=== PATIENT | female | born 1940 | race Caucasian/White ===

== ENCOUNTER → 2016-07-29 | Outpatient (CLI) | payer OTHER ==
[~2016-07-29] MED LIST: ACP20 PO; ALLO300T2 PO; ATV1 PO; FRS/40 PO; HYDCR1CL TOP; INSUINJ4 SC; LISI-729 PO; LTRCR15 TOP; METO50TA16 PO; POTA1080 PO; PRED-301 PO; TAMO20TA5 PO; TRAM-10 PO
--- NOTE | 2016-07-29 13:24 | MAMMOGRAPHY REPORT ---
BILATERAL DIGITAL SCREENING MAMMOGRAM TOMOSYNTHESIS WITH CAD: 07/29/2016 TECHNIQUE: Breast tomosynthesis in addition to standard 2D mammography was performed. Current study was also evaluated with a Computer Aided Detection (CAD) system. COMPARISON: Comparison is made to exams dated: 07/27/2015 mammogram, 07/05/2013 mammogram, 07/21/2014 m ammogram, 07/02/2012 mammogram, and 09/29/2011 mammogram - [facility]. BREAST COMPOSITION: There are scattered areas of fibroglandular density in both breasts. FINDINGS: No suspicious masses, calcifications, or areas of architectural distortion are noted in e ither breast. There has been no significant interval change compared to prior exams. There are stab le postsurgical changes in the left breast from prior lumpectomy. There is stable mild diffuse left breast skin thickening, likely sequela of radiation therapy. Scattered bilateral benign appearing calcifications are not significantly changed. IMPRESSION: ACR BI-RADS CATEGORY 2: BENIGN There is no mammographic evidence of malignancy. A 1 year screening mammogram is recommended. The p atient will receive written notification of the results. Approximately 10% of breast cancers are not detected with mammography. A negative mammographic repor t should not delay biopsy if a clinically suggestive mass is present. Kym Antonio M.D. /:07/29/2016 12:20:36 Grinder Operator Tool: Patti SINGLETARY(Mike)(Tavia), [facility] letter sent: Normal 1/2 BI-RADS Code: ACR BI-RADS Category 2: Benign
== END | disposition home or self-care (01) ==
LOC: C.MAMM 10:11
PROVIDERS: ATTEND Internal Medicine
DX: Z12.31 Encounter for screening mammogram for malignant neoplasm of breast (principal)

== ENCOUNTER → 2016-08-13 | Day surgery (SDC) | payer OTHER ==
[2016-08-04 14:01] VITALS: Ht 157.5 cm; Wt 97.7 kg
[~2016-08-13] VITALS: Ht 157.5 cm; Wt 97.7 kg
[~2016-08-13] MED LIST changes: +500ML BSS 0.3ML EPI 1:1000PF IRRIG ONE; +ACETAMINOPHEN 325 MG TAB PO PRN; +AMVISC PLUS 0.8ML SYRINGE INT OCU ONE; +ATROPINE SULFATE 0.1 MG/ML 5ML SYR IV PRN; +AcetaZOLAMIDE 250 MG TAB PO SCH; +BETAXOLOL HCL 0.25% OP SUSP PER DROP CHARGE OPL SCH; +BRIMONIDINE TART 0.2% OP SOLN PER DROP CHARGE ONE; +ENDOCOAT 0.85ML SYRINGE INT OCU ONE; +EpINEphrine INJ 1MG/ML AMP 1 MG/ML AMP ONE; +LACTATED RINGER'S 1000ML 500 ML IV SCH; +LIDOCAINE 4% OP SOLN DROP CHARGE ONE; +LIDOCAINE 4% OP SOLN DROP CHARGE OPL SCH; +LIDOCAINE HCL 1% MPF 2 ML VIAL ONE; +MIDAZOLAM HCL 1 MG/ML 2ML VIAL ONE; +MIX: 4ML BSS 1ML EPI 1:1000 PF INSTIL ONE; +MOXIFLOXACIN OPH SOLN PER DROP CHARGE ONE; +OCUCOAT 1 ML SOLN IO ONE; +POVIDONE-IODINE OP SOLN 30 ML BTL ONE; +PROPARACAINE 0.5% OP SOLN PER DROP CHARGE OPL SCH; +TOBRAMYCIN/DEXAMETHASONE OPH OINT PER APPLN CHARGE ONE
--- NOTE | 2016-08-13 07:24 | History & Physical Bridge - SC ---
H&P Re-Evaluation Bridge Note: I have examined the patient, reviewed the History & Physical and in the interval since the performance of the History & Physical I have noted the following changes of clinical significance: No changes noted
[2016-08-13] MEDS: PHENYLEPHRINE HCL 2.5% OP SOLN PER DROP CHARGE OPL SCH ×2 (07:55→08:00)
[2016-08-13] MEDS: TROPICAMIDE 1% OP SOLN PER DROP CHARGE OPL SCH ×2 (07:56→08:01)
[2016-08-13] MEDS: CYCLOPENTOLATE HCL 1% OP SOLN PER DROP CHARGE OPL SCH ×2 (07:57→08:02)
[2016-08-13] MEDS: MOXIFLOXACIN OPH SOLN PER DROP CHARGE OPL SCH ×2 (07:58→08:08)
--- NOTE | 2016-08-13 08:53 | Discharge Instructions-SurgCtr ---
Discharge Instructions Visit Reason for Visit: Cataract Left Eye Discharge Discharge Diagnosis / Problem: lens implant left eye Discharge Goals Goal(s): Improve function Activity Recommendations Activity Limitations: resume your previous activity Lifting Limitations: no more than 10 pounds Exercise/Sports Limitations: gradually increase as tolerated May Resume Sexual Activity: when tolerated Shower/Bathe: tomorrow Driving or Machine Use: resume 1 day after discharge Anesthesia . Post Anesthesia Instructions: If you have had General Anesthesia or IV Sedation: * Do not drive today. * Resume driving when surgeon permits. * Do not make important decisions or sign legal documents today. * Call surgeon for: 1. Temperature elevations greater than 101 degrees F. 2. Uncontrollable pain. 3. Excessive bleeding. 4. Persistent nausea and vomiting. 5. Medication intolerance (nausea, vomiting or rash). * For nausea and vomiting use only clear liquids such as: tea, soda, bouillon until nausea subsides, then gradually increase diet as tolerated. * If you have any concerns or questions, call your surgeon's office. If physician is unavailable and it is an emergency, call 911 or go to the nearest emergency room. . Instructions / Follow-Up Instructions / Follow-Up ACTIVITY RECOMMENDATIONS: * Light activities. * Mild irritation and blurred vision are common for the first few days. * You may walk outside, read, watch television. * Redness around the white part of the eye is common. MEDICATIONS: Resume previous medications unless instructed otherwise by your surgeon. * Take white Diamox (Acetazolamide) tablet at 1 pm today. Start all eye drops at 1 pm today: * Eye drops (today and tomorrow): Prednisone - one drop in operative eye every 3 hours while awake Ofloxacin - one drop in operative eye every 3 hours while awake SPECIAL CARE INSTRUCTIONS: * Tape plastic shield over eye to sleep at night. Call your doctor at with any concerns or problems. FOLLOW UP VISIT: Follow-up with Dr Torres at [place] office as scheduled. Diet Recommendations Home Diet: no limitations Procedures Procedures Performed: cataract extraction with lens implant Pending Studies Studies pending at discharge: no Medical Emergencies . Who to Call and When: Medical Emergencies: If at any time you feel your situation is an emergency, please call 911 immediately. . Non-Emergent Contact Non-Emergency issues call your: Cane Weigher Call Non-Emergent contact if: your pain is not controlled [phone] . . "Provider Documentation" section prepared by Jared Torres.
--- NOTE | 2016-08-13 08:55 | [facility] Operative Report ---
Operative Report Date of Service Aug 13, 2016. Operative Report 1. PREOPERATIVE DIAGNOSIS: Senile nuclear cataract, left eye. 2. POSTOPERATIVE DIAGNOSIS: Senile nuclear cataract, left eye. 3. PROCEDURE: Phacoemulsification of left cataract with posterior chamber lens implant, type Bausch & Lomb, model [id number], power +21.0 diopters. ANESTHESIA: Local standby. SURGEON: Dr. Torres. COMPLICATIONS: None. OPERATING TIME: 10 minutes. 4. OPERATION AND FINDINGS: DESCRIPTION OF PROCEDURE: The left pupil was dilated. The anesthetic was administered using a topical technique. The left eye was prepped and draped. A speculum was placed. A clear corneal incision was formed. The chamber was filled with Amvisc Plus and Endocoat. Epinephrine solution was used. A paracentesis was placed. A capsulorrhexis was performed. The nucleus was hydrodissected. The lens was removed with phacoemulsification. Time was 4.40 seconds. The aspiration unit was used to remove the cortex. The capsule was filled with Amvisc Plus. The lens implant was folded and placed into the capsule. The incision was hydrated. The Amvisc was aspirated. The wound was secure. The chamber was deep. The pupil was round. TobraDex ointment and Vigamox solution were placed. The speculum was removed. The patient was returned to the Recovery Room in stable condition. I attest to the content of the Intraoperative Record and any orders documented therein. Any exceptions are noted below. The scribe's documentation has been prepared in my presence, under my direction and personally reviewed by me in its entirety. I confirm that the note above accurately reflects all work, treatment, procedures, and medical decision making performed by me. I personally scribed for Jared Torres M.D. (TIA) on 08/13/16 at 08:55. Electronically submitted by Caitlin Dick ([email or web address]).
[2016-08-13 08:59] VITALS: TEMP 36.1
--- NOTE | 2016-08-13 09:20 | Anesthesia Progress Nt - [facility] ---
Anesthesia Post Op Note Date & Time Aug 13, 2016 at 09:19 Vital Signs Pain Intensity: 0 Vital Signs Past 12 Hours Date Time Temp Pulse Resp B/P Pulse Ox O2 Delivery O2 Flow Rate FiO2 08/13/16 08:59 36.1 69 16 111/64 96 Room Air 08/13/16 07:47 36.8 59 20 146/82 96 Room Air Notes Mental Status: alert / awake / arousable, participated in evaluation Pt Amnestic to Procedure: Yes Nausea / Vomiting: adequately controlled Pain: adequately controlled Airway Patency, RR, SpO2: stable & adequate BP & HR: stable & adequate Hydration State: stable & adequate Anesthetic Complications: no major complications apparent
[2016-08-13 09:25] VITALS: BP 115/66; PULSE 53; O2SAT 95
== END | disposition home or self-care (01) ==
LOC: X.SURG 07:34
PROVIDERS: ATTEND Specialist
DX: H25.12 Age-related nuclear cataract, left eye (principal); E11.36 Type 2 diabetes mellitus with diabetic cataract; I12.9 Hypertensive chronic kidney disease with stage 1 through stage 4 chronic kidney disease, or unspecified chronic kidney disease; E11.22 Type 2 diabetes mellitus with diabetic chronic kidney disease; N18.9 Chronic kidney disease, unspecified; Z68.39 Body mass index [BMI] 39.0-39.9, adult; Z98.890 Other specified postprocedural states; Z90.49 Acquired absence of other specified parts of digestive tract; Z79.4 Long term (current) use of insulin

== ENCOUNTER → 2016-08-25 | Outpatient (CLI) | payer OTHER ==
[~2016-08-25] MED LIST changes: -500ML BSS 0.3ML EPI 1:1000PF IRRIG ONE; -ACETAMINOPHEN 325 MG TAB PO PRN; -AMVISC PLUS 0.8ML SYRINGE INT OCU ONE; -ATROPINE SULFATE 0.1 MG/ML 5ML SYR IV PRN; -AcetaZOLAMIDE 250 MG TAB PO SCH; -BETAXOLOL HCL 0.25% OP SUSP PER DROP CHARGE OPL SCH; -BRIMONIDINE TART 0.2% OP SOLN PER DROP CHARGE ONE; -ENDOCOAT 0.85ML SYRINGE INT OCU ONE; -EpINEphrine INJ 1MG/ML AMP 1 MG/ML AMP ONE; -LACTATED RINGER'S 1000ML 500 ML IV SCH; -LIDOCAINE 4% OP SOLN DROP CHARGE ONE; -LIDOCAINE 4% OP SOLN DROP CHARGE OPL SCH; -LIDOCAINE HCL 1% MPF 2 ML VIAL ONE; -MIDAZOLAM HCL 1 MG/ML 2ML VIAL ONE; -MIX: 4ML BSS 1ML EPI 1:1000 PF INSTIL ONE; -MOXIFLOXACIN OPH SOLN PER DROP CHARGE ONE; -OCUCOAT 1 ML SOLN IO ONE; -POVIDONE-IODINE OP SOLN 30 ML BTL ONE; -PROPARACAINE 0.5% OP SOLN PER DROP CHARGE OPL SCH; -TOBRAMYCIN/DEXAMETHASONE OPH OINT PER APPLN CHARGE ONE
[2016-08-25 14:15] LABS: BLOOD UREA NITROGEN 32 mg/dl (7-18); BUN/CREATININE RATIO 18.8 (10-20); CALCIUM 8.8 mg/dl (8.5-10.1); CARBON DIOXIDE 27 mmol/L (21-32); CHLORIDE 102 mmol/L (98-107); CHOLESTEROL 140 mg/dl (0-200); GLUCOSE 144 mg/dl (70-99); POTASSIUM 4.1 mmol/L (3.5-5.1); SODIUM 140 mmol/L (136-145)
[2016-08-25 14:18] LABS: CHOLESTEROL/HDL RATIO 3.2; HDL CHOLESTEROL 44 mg/dl; TRIGLYCERIDES 121 mg/dl (0-150); VERY LOW DENSITY LIPOPROT CALC 24 mg/dl
[2016-08-25 14:28] LABS: ESTIMATED AVERAGE GLUCOSE 163 mg/dl; HA1C FLAG Normal (Normal)
== END ==
LOC: C.LABSPEC 12:41
PROVIDERS: ATTEND Internal Medicine
DX: E11.9 Type 2 diabetes mellitus without complications (principal); E78.5 Hyperlipidemia, unspecified; I10 Essential (primary) hypertension

== ENCOUNTER → 2016-11-13 | Outpatient (CLI) | payer OTHER ==
[~2016-11-13] MED LIST changes: +ATV/1 PO; +CLOT1CRE12 TD; +CPR500 PO; +DILT120C50 PO; +DILT120C68 PO; +INSDGIPEN SC; +RABE20TA5 PO; +RIVA1.5T PO; +URC10 PO; +XRL15 PO
[2016-11-13 16:00] LABS: BLOOD UREA NITROGEN 30 mg/dl (7-18); BUN/CREATININE RATIO 16.5 (10-20); CALCIUM 8.6 mg/dl (8.5-10.1); CARBON DIOXIDE 32 mmol/L (21-32); CHLORIDE 102 mmol/L (98-107); GLUCOSE 112 mg/dl (70-99); POTASSIUM 4.2 mmol/L (3.5-5.1); SODIUM 141 mmol/L (136-145)
[2016-11-14 06:18] LABS: ESTIMATED AVERAGE GLUCOSE 163 mg/dl; HA1C FLAG Normal (Normal)
== END | disposition home or self-care (01) ==
LOC: C.LABSPEC 15:05
PROVIDERS: ATTEND Internal Medicine
DX: I12.9 Hypertensive chronic kidney disease with stage 1 through stage 4 chronic kidney disease, or unspecified chronic kidney disease (principal); N18.9 Chronic kidney disease, unspecified; E11.65 Type 2 diabetes mellitus with hyperglycemia

== ENCOUNTER → 2016-11-18 | Outpatient (CLI) | payer OTHER ==
[2015-11-15 13:34] VITALS: BP 106/66; PULSE 56
[~2016-11-18] MED LIST changes: -ATV/1 PO; -CLOT1CRE12 TD; -CPR500 PO; -DILT120C50 PO; -DILT120C68 PO; -INSDGIPEN SC; -RABE20TA5 PO; -RIVA1.5T PO; -URC10 PO; -XRL15 PO
[2016-11-18 13:18] VITALS: BP 130/69; PULSE 59; TEMP 37.2; O2SAT 94
--- NOTE | 2016-11-18 14:31 | Radiation Oncology Follow-Up ---
Radiation Oncology Follow-Up Date of Visit Nov 18, 2016. Reason For Visit Annual follow-up Radiation Completion Date 04/08/2012 Diagnosis (1) Malignant neoplasm of central portion of female breast Status: Resolved Onset Date: 10/01/2011 Histology Subtype: ductal Stage: l Permanent Comment: Left breast pain Finding of a left breast mass Status post biopsy revealing infiltrating ductal carcinoma Status post partial mastectomy and sentinel lymph node biopsy Pathologic stage [id number] Estrogen receptor positive, progesterone receptor positive, HER-2/abelardo negative Status post completion of radiation therapy 04/08/2012 received 6120 cGy Last Edited By: Maya Shook on Nov 14, 2014 15:51 Interim History She's been doing well over this past year. She denies any changes to her breast. She's noted no masses or tenderness and no change of the axilla. She' s had no swelling of her arm. She is up-to-date on mammography. She was seen in medical oncology and has been discharged. She is also completing 5 years of tamoxifen. She does not have to take this any further than 5 years. Allergies Coded Allergies: Hydrocodone (Unverified Allergy, Mild, UNKNOWN "HAPPENED LONG TIME AGO", ) Hydroxychloroquine (Verified Allergy, Unknown, "BURPED FOR DAYS AND TORE MY STOMACH UP", 08/13/16) Insulin Aspart (Verified Allergy, Unknown, LOCALIZED RASH AT INJECTION SITE, 08/13/16) Phenol (Verified Allergy, Unknown, LOCALIZED RASH AT INJECTION SITE, ) Protamine (Verified Allergy, Unknown, LOCALIZED RASH AT INJECTION SITE, 08/13/16) Sodium Chloride (Verified Allergy, Unknown, LOCALIZED RASH AT INJECTION SITE, 08/13/16) Sodium Phosphate (Verified Allergy, Unknown, LOCALIZED RASH AT INJECTION SITE, 08/13/16) Zinc (Verified Allergy, Unknown, LOCALIZED RASH AT INJECTION SITE, 08/13/16) Home Medications Scheduled Allopurinol (Zyloprim), 300 MG PO QAM Clotrimazole 1% (Lotrimin 1% *), 1 APPL TOP UD Furosemide (Lasix), 40 MG PO BID Hydrocortisone 1% (Hydrocortisone 1%), 1 APPL TOP UD Insulin Glargine (Lantus Solostar Pen), 45 UNITS SC AM Insulin Glargine (Lantus Solostar Pen), 15 UNITS SC supper time Lisinopril (Prinivil), 5 MG PO BID Metoprolol Tartrate (Lopressor) (Lopressor), 50 MG PO BID Potassium Citrate (Urocit-K), 3 TABS PO BID Rabeprazole Sodium (Aciphex *), 20 MG PO QAM Tamoxifen Citrate (Nolvadex), 20 MG PO QAM Scheduled PRN Lorazepam (Ativan *), 1 MG PO Q8 PRN for PANIC ATTACKS Prednisone (Prednisone), 10 MG PO HS PRN for swelling Tramadol (Ultram), 50-100 MG PO Q4-6H PRN for Pain Review of Systems Gastrointestinal: Symptoms: WNL GI Comments: constipation due to pain med. last BM this Am Oral: Symptoms: No Problems Respiratory: Symptoms: WNL Urinary: Symptoms: WNL Comments: intermet feels like not emptying bladder Skin: Symptoms: No Problems Breast: Right Upper Arm Measurement: 37.6 Right Mid Arm Measurement: 29.2 Right Wrist Measurement: 18.8 Left Upper Arm Measurement: 38.1 Left Mid Arm Measurement: 30.1 Left Wrist Measurement: 19.4 Arm Dominence: Right Patient Cosmetic Evaluation: Good Staff Cosmetic Evalaluation: Good Physical Exam Vital Signs Date Time Temp Pulse Resp B/P (MAP) Pulse Ox O2 Delivery O2 Flow Rate FiO2 11/18/16 13:18 37.2 59 20 130/69 94 Pain: Pain Onset: years Pain Duration: intermet Initial Pain Intensity: 3.0 Pain Description: Aching Fatigue: None General Appearance: no apparent distress Eyes: normal inspection, EOMI ENT: normal ENT inspection, hearing grossly normal Neck: no adenopathy, thyroid normal Respiratory/Chest: lungs clear, no respiratory distress, no accessory muscle use Breast: Breast examination reveals well-healed incisions of the left breast. There are mild fibrous changes. There are no masses or tenderness no axillary adenopathy. She has slight telangiectasia this is especially noted in the inframammary fold. There is no axillary adenopathy. Using the [place] score cosmesis she has a good outcome. The right breast showed no masses or tenderness and no axillary adenopathy. Cardiovascular: regular rate, rhythm, no gallop, no murmur Extremities: no pedal edema Neurologic/Psychiatric: no motor/sensory deficits, alert, normal mood/affect Skin: warm/dry Laboratory Studies Test 08/25/16 08:45 11/13/16 12:00 Sodium Level 140 mmol/L (136-145) 141 mmol/L (136-145) Potassium Level 4.1 mmol/L (3.5-5.1) 4.2 mmol/L (3.5-5.1) Chloride Level 102 mmol/L (98-107) 102 mmol/L (98-107) Carbon Dioxide Level 27 mmol/L (21-32) 32 mmol/L (21-32) Anion Gap 11.0 mmol/L (3-11) 7.0 mmol/L (3-11) Blood Urea Nitrogen 32 mg/dl (7-18) 30 mg/dl (7-18) Creatinine 1.70 mg/dl (0.60-1.20) 1.80 mg/dl (0.60-1.20) Estimated GFR () 34.1 31.6 Estimated GFR (Non- 29.4 27.2 BUN/Creatinine Ratio 18.8 (10-20) 16.5 (10-20) Random Glucose 144 mg/dl (70-99) 112 mg/dl (70-99) Estimated Average Glucose 163 mg/dl 163 mg/dl Hemoglobin A1c 7.3 % (4.5-5.6) 7.3 % (4.5-5.6) Calcium Level 8.8 mg/dl (8.5-10.1) 8.6 mg/dl (8.5-10.1) Triglycerides Level 121 mg/dl (0-150) Cholesterol Level 140 mg/dl (0-200) HDL Cholesterol 44 mg/dl LDL Cholesterol Direct 79 mg/dl LDL Cholesterol, Calculated mg/dl VLDL Cholesterol, Calculated 24 mg/dl Cholesterol/HDL Ratio 3.2 Additional Studies Patient: ANA MOBLEY [facility] Rec: [id number] Address1: [address] [facility] Address2: Acct ID: [id number] Date: 1940 Sex: F Ref Phy: Att Phy: Marito Sheppard M.D. Sandra Phy: Marito Sheppard M.D. Inter Phy: Kym Antonio [facility] Zip: [place] [address] SC: JOANNE Report #: [id number] Supervisor Enrobing: RAMON Diagnosis: ASYMPTOMATIC Service Date: 07/29/16 MNE: [id number] Ordering Dr: Marito Sheppard M.D. CC: Marito Sheppard M.D. CONF: DICTATED BY: Kym Antonio MD MAMMOGRAPHY REPORT BILATERAL DIGITAL SCREENING MAMMOGRAM TOMOSYNTHESIS WITH CAD: 07/29/2016 TECHNIQUE: Breast tomosynthesis in addition to standard 2D mammography was performed. Current study was also evaluated with a Computer Aided Detection (CAD ) system. COMPARISON: Comparison is made to exams dated: 07/27/2015 mammogram, 07/05/2013 mammogram, 07/21/2014 mammogram, 07/02/2012 mammogram, and 09/29/2011 mammogram - [facility] [address]. BREAST COMPOSITION: There are scattered areas of fibroglandular density in both breasts. FINDINGS: No suspicious masses, calcifications, or areas of architectural distortion are noted in either breast. There has been no significant interval change compared to prior exams. There are stable postsurgical changes in the left breast from prior lumpectomy. There is stable mild diffuse left breast skin thickening, likely sequela of radiation therapy. Scattered bilateral benign appearing calcifications are not significantly changed. IMPRESSION: ACR BI-RADS CATEGORY 2: BENIGN There is no mammographic evidence of malignancy. A 1 year screening mammogram is recommended. The patient will receive written notification of the results. Approximately 10% of breast cancers are not detected with mammography. A negative mammographic report should not delay biopsy if a clinically suggestive mass is present. Kym Antonio M.D. ah/:07/29/2016 12:20:36 B2B Account Executive: Patti Urrutia RT(R)(M), [facility] [address] letter sent: Normal 1/2 BI-RADS Code: ACR BI-RADS Category 2: Benign Dictated by: Kym Antonio MD Signed by: Kym Antonio MD Assessment & Plan Plan: Continue annual mammography. She'll now follow with her primary care physician. A follow-up appointment with our office was not given. She may call if she has any questions or concerns we'll be happy to see her. Total Time In Follow-Up I spent 20 minutes speaking to the patient and performing examination. I spent 15 minutes reviewing information in completing this note. Copy To Marito Sheppard M.D. Problem Qualifiers (1) Malignant neoplasm of central portion of female breast: Estrogen receptor status: positive Laterality: left Qualified Codes: C50.112 - Malignant neoplasm of central portion of left female breast; Z17.0 - Estrogen receptor positive status [ER+]
== END | disposition home or self-care (01) ==
LOC: C.ONC 12:42
PROVIDERS: ATTEND Physician Assistant Medical
DX: Z08 Encounter for follow-up examination after completed treatment for malignant neoplasm (principal); Z92.3 Personal history of irradiation; Z85.3 Personal history of malignant neoplasm of breast

== ENCOUNTER → 2017-01-14 | Day surgery (SDC) | payer OTHER ==
[2017-01-09 08:22] VITALS: Ht 157.5 cm; Wt 97.7 kg
[~2017-01-14] VITALS: Ht 157.5 cm; Wt 97.7 kg
[~2017-01-14] MED LIST changes: +500ML BSS 0.3ML EPI 1:1000PF IRRIG ONE; +ACETAMINOPHEN 325 MG TAB PO PRN; +AMVISC PLUS 0.8ML SYRINGE INT OCU ONE; +ATROPINE SULFATE 0.1 MG/ML 5ML SYR IV PRN; +AcetaZOLAMIDE 250 MG TAB PO SCH; +BETAXOLOL HCL 0.25% OP SUSP PER DROP CHARGE OPR SCH; +BRIMONIDINE TART 0.2% OP SOLN PER DROP CHARGE ONE; +BSS FLUSH ONE; +ENDOCOAT 0.85ML SYRINGE INT OCU ONE; +EpHEDrine SULFATE INJ 50 MG/ML AMP IV PRN; +EpINEphrine INJ 1MG/ML AMP 1 MG/ML AMP ONE; +LACTATED RINGER'S 1000ML 500 ML IV SCH; +LIDOCAINE 4% OP SOLN DROP CHARGE ONE; +LIDOCAINE 4% OP SOLN DROP CHARGE OPR SCH; +LIDOCAINE HCL 1% MPF 2 ML VIAL ONE; +MIDAZOLAM HCL 1 MG/ML 2ML VIAL ONE; +MIX: 4ML BSS 1ML EPI 1:1000 PF INSTIL ONE; +MOXIFLOXACIN OPH SOLN PER DROP CHARGE ONE; +NURSING VERBAL MED ORDER ONE; +OCUCOAT 1 ML SOLN IO ONE; +POVIDONE-IODINE OP SOLN 30 ML BTL ONE; +PROPARACAINE 0.5% OP SOLN PER DROP CHARGE OPR SCH; -TAMO20TA5 PO; +TOBRAMYCIN/DEXAMETHASONE OPH OINT PER APPLN CHARGE ONE
[2017-01-14] MEDS: PHENYLEPHRINE HCL 2.5% OP SOLN PER DROP CHARGE OPR SCH ×2 (08:30→08:33)
[2017-01-14] MEDS: TROPICAMIDE 1% OP SOLN PER DROP CHARGE OPR SCH ×2 (08:30→08:34)
[2017-01-14] MEDS: CYCLOPENTOLATE HCL 1% OP SOLN PER DROP CHARGE OPR SCH ×2 (08:31→08:35)
[2017-01-14] MEDS: MOXIFLOXACIN OPH SOLN PER DROP CHARGE OPR SCH ×2 (08:32→08:42)
--- NOTE | 2017-01-14 09:20 | Discharge Instructions-SurgCtr ---
Discharge Instructions Date of Service Jan 14, 2017. Visit Reason for Visit: Cataract Right Eye Discharge Discharge Diagnosis / Problem: lens implant right eye Discharge Goals Goal(s): Improve function Activity Recommendations Activity Limitations: resume your previous activity Lifting Limitations: no more than 10 pounds Exercise/Sports Limitations: gradually increase as tolerated May Resume Sexual Activity: when tolerated Shower/Bathe: tomorrow Driving or Machine Use: resume 1 day after discharge Anesthesia . Post Anesthesia Instructions: If you have had General Anesthesia or IV Sedation: * Do not drive today. * Resume driving when surgeon permits. * Do not make important decisions or sign legal documents today. * Call surgeon for: 1. Temperature elevations greater than 101 degrees F. 2. Uncontrollable pain. 3. Excessive bleeding. 4. Persistent nausea and vomiting. 5. Medication intolerance (nausea, vomiting or rash). * For nausea and vomiting use only clear liquids such as: tea, soda, bouillon until nausea subsides, then gradually increase diet as tolerated. * If you have any concerns or questions, call your surgeon's office. If physician is unavailable and it is an emergency, call 911 or go to the nearest emergency room. . Instructions / Follow-Up Instructions / Follow-Up ACTIVITY RECOMMENDATIONS: * Light activities. * Mild irritation and blurred vision are common for the first few days. * You may walk outside, read, watch television. * Redness around the white part of the eye is common. MEDICATIONS: Resume previous medications unless instructed otherwise by your surgeon. * Take white Diamox (Acetazolamide) tablet at 1 pm today. Start all eye drops at 1 pm today: * Eye drops (today and tomorrow): Prednisone - one drop in operative eye every 3 hours while awake Ofloxacin - one drop in operative eye every 3 hours while awake SPECIAL CARE INSTRUCTIONS: * Tape plastic shield over eye to sleep at night. Call your doctor at with any concerns or problems. FOLLOW UP VISIT: Follow-up with Dr Torres at [place] office as scheduled. Diet Recommendations Home Diet: no limitations Procedures Procedures Performed: cataract extraction with lens implant Pending Studies Studies pending at discharge: no Medical Emergencies . Who to Call and When: Medical Emergencies: If at any time you feel your situation is an emergency, please call 911 immediately. . Non-Emergent Contact Non-Emergency issues call your: Motor Room Controller Call Non-Emergent contact if: your pain is not controlled [phone] . . "Provider Documentation" section prepared by Jared Torres. .
--- NOTE | 2017-01-14 09:23 | [facility] Operative Report ---
Operative Report Date of Service Jan 14, 2017. Operative Report 1. PREOPERATIVE DIAGNOSIS: Senile nuclear cataract, right eye. 2. POSTOPERATIVE DIAGNOSIS: Senile nuclear cataract, right eye. 3. PROCEDURE: Phacoemulsification of right cataract with posterior chamber lens implant, type Bausch & Lomb, model [employer] [id number], power +21.5 diopters. ANESTHESIA: Local standby. SURGEON: Dr. Torres. COMPLICATIONS: None. OPERATING TIME: 10 minutes. 4. OPERATION AND FINDINGS: DESCRIPTION OF PROCEDURE: The right pupil was dilated. The anesthetic was administered using a topical technique. The right eye was prepped and draped. A speculum was placed. A clear corneal incision was formed. The chamber was filled with Amvisc Plus and Endocoat. Epinephrine solution was used. A paracentesis was placed. A capsulorrhexis was performed. The nucleus was hydrodissected. The lens was removed with phacoemulsification. Time was 2.12 seconds. The aspiration unit was used to remove the cortex. The capsule was filled with Amvisc Plus. The lens implant was folded and placed into the capsule. The incision was hydrated. The Amvisc was aspirated. The wound was secure. The chamber was deep. The pupil was round. Brimonidine, TobraDex ointment and Vigamox solution were placed. The speculum was removed. The patient was returned to the Recovery Room in stable condition. I attest to the content of the Intraoperative Record and any orders documented therein. Any exceptions are noted below. The scribe's documentation has been prepared in my presence, under my direction and personally reviewed by me in its entirety. I confirm that the note above accurately reflects all work, treatment, procedures, and medical decision making performed by me. I personally scribed for Jared Torres M.D. (TIA) on 01/14/17 at 09:23. Electronically submitted by Caitlin Dick ([email or web address]).
[2017-01-14 09:24] VITALS: PULSE 56; TEMP 36.7
[2017-01-14] MEDS: PROPARACAINE 0.5% OP SOLN PER DROP CHARGE OPR SCH ×2 (09:30→09:35)
[2017-01-14 10:00] VITALS: BP 114/69; O2SAT 98
--- NOTE | 2017-01-14 10:02 | Anesthesia Progress Nt - [facility] ---
Anesthesia Post Op Note Date & Time Jan 14, 2017 at 10:02 Vital Signs Pain Intensity: 3 Vital Signs Past 12 Hours Date Time Temp Pulse Resp B/P (MAP) Pulse Ox O2 Delivery O2 Flow Rate FiO2 01/14/17 09:24 36.7 56 16 118/65 (82) 98 Room Air 01/14/17 08:23 37 56 20 115/72 (86) 100 Room Air Notes Mental Status: alert / awake / arousable, participated in evaluation Pt Amnestic to Procedure: Yes Nausea / Vomiting: adequately controlled Pain: adequately controlled Airway Patency, RR, SpO2: stable & adequate BP & HR: stable & adequate Hydration State: stable & adequate Anesthetic Complications: no major complications apparent
== END | disposition home or self-care (01) ==
LOC: X.SURG 07:45
PROVIDERS: ATTEND Specialist
DX: H25.11 Age-related nuclear cataract, right eye (principal); I10 Essential (primary) hypertension; E78.00 Pure hypercholesterolemia, unspecified; E11.9 Type 2 diabetes mellitus without complications; Z79.84 Long term (current) use of oral hypoglycemic drugs; M06.9 Rheumatoid arthritis, unspecified; M19.90 Unspecified osteoarthritis, unspecified site; K21.9 Gastro-esophageal reflux disease without esophagitis; K44.9 Diaphragmatic hernia without obstruction or gangrene; E66.9 Obesity, unspecified; Z90.710 Acquired absence of both cervix and uterus

== ENCOUNTER → 2017-02-04 | Outpatient (CLI) | payer OTHER ==
[~2017-02-04] MED LIST changes: -500ML BSS 0.3ML EPI 1:1000PF IRRIG ONE; -ACETAMINOPHEN 325 MG TAB PO PRN; -AMVISC PLUS 0.8ML SYRINGE INT OCU ONE; -ATROPINE SULFATE 0.1 MG/ML 5ML SYR IV PRN; -AcetaZOLAMIDE 250 MG TAB PO SCH; -BETAXOLOL HCL 0.25% OP SUSP PER DROP CHARGE OPR SCH; -BRIMONIDINE TART 0.2% OP SOLN PER DROP CHARGE ONE; -BSS FLUSH ONE; -ENDOCOAT 0.85ML SYRINGE INT OCU ONE; -EpHEDrine SULFATE INJ 50 MG/ML AMP IV PRN; -EpINEphrine INJ 1MG/ML AMP 1 MG/ML AMP ONE; -LACTATED RINGER'S 1000ML 500 ML IV SCH; -LIDOCAINE 4% OP SOLN DROP CHARGE ONE; -LIDOCAINE 4% OP SOLN DROP CHARGE OPR SCH; -LIDOCAINE HCL 1% MPF 2 ML VIAL ONE; -MIDAZOLAM HCL 1 MG/ML 2ML VIAL ONE; -MIX: 4ML BSS 1ML EPI 1:1000 PF INSTIL ONE; -MOXIFLOXACIN OPH SOLN PER DROP CHARGE ONE; -NURSING VERBAL MED ORDER ONE; -OCUCOAT 1 ML SOLN IO ONE; -POVIDONE-IODINE OP SOLN 30 ML BTL ONE; -PROPARACAINE 0.5% OP SOLN PER DROP CHARGE OPR SCH; -TOBRAMYCIN/DEXAMETHASONE OPH OINT PER APPLN CHARGE ONE
[2017-02-04 13:22] LABS: BLOOD UREA NITROGEN 26 mg/dl (7-18); BUN/CREATININE RATIO 14.7 (10-20); CALCIUM 8.5 mg/dl (8.5-10.1); CARBON DIOXIDE 28 mmol/L (21-32); CHLORIDE 101 mmol/L (98-107); CHOLESTEROL 128 mg/dl (0-200); GLUCOSE 144 mg/dl (70-99); SODIUM 137 mmol/L (136-145)
[2017-02-04 13:25] LABS: HDL CHOLESTEROL 43 mg/dl; TRIGLYCERIDES 120 mg/dl (0-150); VERY LOW DENSITY LIPOPROT CALC 24 mg/dl
[2017-02-04 13:45] LABS: ESTIMATED AVERAGE GLUCOSE 171 mg/dl; HA1C FLAG Normal (Normal)
== END | disposition home or self-care (01) ==
LOC: C.LABSPEC 12:16
PROVIDERS: ATTEND Internal Medicine
DX: N17.9 Acute kidney failure, unspecified (principal); I10 Essential (primary) hypertension; E11.65 Type 2 diabetes mellitus with hyperglycemia

== ENCOUNTER 2017-03-23 16:17 | Inpatient (IN) | payer OTHER ==
[~2017-03-23] VITALS: Ht 157.5 cm; Wt 104.5 kg
[2017-03-23] MEDS: METOPROLOL TARTRATE 50 MG TAB PO SCH
[2017-03-23] MEDS ORDERED: ACETAMINOPHEN 500 MG TAB PO STA (16:59)
[2017-03-23] MEDS ORDERED: LACTATED RINGER'S 1000ML 1,000 ML IV ONE (17:00)
--- NOTE | 2017-03-23 17:08 | EMERGENCY ROOM VISIT NOTE ---
History Report prepared by Kirsty: Amari Roberts Under the Supervision of: Dr. Sam Zamudio M.D. First contact with patient: 16:53 Chief Complaint: FEVER Stated Complaint: BACK/CHEST PAIN Nursing Triage Summary: pt reports in the middle of the night I woke up with pain in my back and chest , pt reports " right now I just feel weak and tired but no pain , + nausea History of Present Illness The patient is a 76 year old female who presents to the Emergency Room with complaints of constant left lower quadrant abdominal pain that started today. She rates her pain as a 9/10 in severity. The patient states that she woke up last night with chest and back pain. The patient states that she took Tylenol last night for her symptoms. She reports that she woke up this morning and was experiencing abdominal pain and weakness. The patient states that she is fatigued and nauseous. She states that she is worried that she has a kidney infection because is experiencing a burning sensation whenever she urinates. The patient denies being on blood thinners. Source of History: patient Onset: today Position: abdomen (LLQ) Symptom Intensity: 9/10 Timing: constant Modifying Factors (Relieving): tylenol Associated Symptoms: + chest pain, + nausea, + back pain, + urinary symptoms , + fatigue, + weakness Review of Systems All systems have been listed, reviewed, and are negative other than those previously mentioned. Please see Additional Medical History Sheet. Past Medical & Surgical Medical Problems: (1) LEFT PYELONEPHRITIS, UTI, DM2 (2) Malignant neoplasm of central portion of female breast Family History Patient reports no known family medical history. Social History Smoking Status: Never Smoker Drug Use: none Marital Status: Housing Status: lives with significant other Occupation Status: retired Current/Historical Medications Scheduled Allopurinol (Zyloprim), 300 MG PO QAM Clotrimazole 1% (Lotrimin 1% *), 1 APPL TOP UD Furosemide (Lasix), 40 MG PO BID Hydrocortisone 1% (Hydrocortisone 1%), 1 APPL TOP UD Insulin Glargine (Lantus Solostar Pen), 50 UNITS SC AM Insulin Glargine (Lantus Solostar Pen), 20 UNITS SC supper time Lisinopril (Prinivil), 5 MG PO BID Metoprolol Tartrate (Lopressor) (Lopressor), 50 MG PO BID Potassium Citrate (Urocit-K), 3 TABS PO BID Rabeprazole Sodium (Aciphex *), 20 MG PO QAM Scheduled PRN Lorazepam (Ativan *), 1 MG PO Q8 PRN for PANIC ATTACKS Prednisone (Prednisone), 10 MG PO HS PRN for swelling Tramadol (Ultram), 50-100 MG PO Q4-6H PRN for Pain Allergies Coded Allergies: Hydrocodone (Verified Allergy, Mild, UNKNOWN "HAPPENED LONG TIME AGO", 03/23/17) Phenol (Verified Allergy, Unknown, LOCALIZED RASH AT INJECTION SITE, ) Protamine (Verified Allergy, Unknown, LOCALIZED RASH AT INJECTION SITE, ) Sodium Chloride (Verified Allergy, Unknown, LOCALIZED RASH AT INJECTION SITE, 03/23/17) Sodium Phosphate (Verified Allergy, Unknown, LOCALIZED RASH AT INJECTION SITE, 03/23/17) Zinc (Verified Allergy, Unknown, LOCALIZED RASH AT INJECTION SITE, 03/23/17 ) Hydroxychloroquine (Verified Adverse Reaction, Unknown, "BURPED FOR DAYS AND TORE MY STOMACH UP", 03/23/17) Physical Exam Vital Signs Date Time Temp Pulse Resp B/P (MAP) Pulse Ox O2 Delivery O2 Flow Rate FiO2 03/23/17 19:48 101 18 91/63 93 Room Air 03/23/17 18:41 38.0 97 98/71 91 Room Air 03/23/17 17:46 90 03/23/17 17:31 91 20 149/59 96 Room Air 03/23/17 17:28 93 Room Air 03/23/17 17:28 39.3 03/23/17 16:20 38.1 98 20 131/71 100 Room Air Physical Exam GENERAL: Patient awake, alert, oriented x 3. Patient follows commands. Patient does not appear toxic. Patient is adequately hydrated and well- nourished. Groaning in pain. Appears uncomfortable. SKIN: No erythema, pallor, cyanosis or rash HEENT: Normal head, pupils equal, reactive to light and accommodation. Increased cerumen bilaterally. Oral cavity and posterior pharynx appear dry. Neck: Without adenopathy, no neck vein distention. LUNGS: Clear to auscultation. No wheezes, no rales, no rhonchi. HEART: Irregularly irregular without a murmurs. No gallops. No rubs ABDOMEN: Obese. Soft. Generalized tenderness No masses, no rebound, no hepatomegaly or splenomegaly. EXTREMITIES: No signs of trauma. No pedal or pretibial edema. No calf or thigh tenderness. NEUROLOGIC: Cranial nerves II-XII within normal limits. No gross motor sensory function deficits. Medical Decision & Procedures ER Provider Diagnostic Interpretation: X ray results are stated below per my interpretation and the radiologist's interpretation. CHEST ONE VIEW PORTABLE HISTORY: Atypical chest pain. fever COMPARISON: Chest 08/23/2015. FINDINGS: No focal lung consolidations to suggest pneumonia. No evidence for pulmonary edema. Small nodular density at the left lung base may be due to a tortuous vessel. The heart is stable in size. No pleural effusions. No pneumothorax. IMPRESSION: No acute process. Electronically signed by: Ryland Randolph M.D. 03/23/2017 5:54 PM Dictated Date/Time: 03/23/2017 5:52 PM Laboratory Results 03/23/17 17:15 Red Blood Count 3.28, Mean Corpuscular Volume 101.8, Mean Corpuscular Hemoglobin 32.6, Mean Corpuscular Hemoglobin Concent 32.0, Mean Platelet Volume 12.0, Neutrophils (%) (Auto) 92.4, Lymphocytes (%) (Auto) 5.4, Monocytes (%) ( Auto) 1.8, Eosinophils (%) (Auto) 0.2, Basophils (%) (Auto) 0.0, Neutrophils # ( Auto) 5.50, Lymphocytes # (Auto) 0.32, Monocytes # (Auto) 0.11, Eosinophils # ( Auto) 0.01, Basophils # (Auto) 0.00 03/23/17 17:15 Test 03/23/17 17:15 03/23/17 17:29 03/23/17 17:47 White Blood Count 5.95 K/uL (4.8-10.8) Red Blood Count 3.28 M/uL (4.2-5.4) Hemoglobin 10.7 g/dL (12.0-16.0) Hematocrit 33.4 % (37-47) Mean Corpuscular Volume 101.8 fL (80-100) Mean Corpuscular Hemoglobin 32.6 pg (25-34) Mean Corpuscular Hemoglobin Concent 32.0 g/dl (32-36) Platelet Count 115 K/uL (130-400) Mean Platelet Volume 12.0 fL (7.4-10.4) Neutrophils (%) (Auto) 92.4 % Lymphocytes (%) (Auto) 5.4 % Monocytes (%) (Auto) 1.8 % Eosinophils (%) (Auto) 0.2 % Basophils (%) (Auto) 0.0 % Neutrophils # (Auto) 5.50 K/uL (1.4-6.5) Lymphocytes # (Auto) 0.32 K/uL (1.2-3.4) Monocytes # (Auto) 0.11 K/uL (0.11-0.59) Eosinophils # (Auto) 0.01 K/uL (0-0.5) Basophils # (Auto) 0.00 K/uL (0-0.2) RDW Standard Deviation 59.5 fL (36.4-46.3) RDW Coefficient of Variation 16.0 % (11.5-14.5) Immature Granulocyte % (Auto) 0.2 % Immature Granulocyte # (Auto) 0.01 K/uL (0.00-0.02) Platelet Estimate DECREASED Large Platelets 1+ Prothrombin Time 11.5 SECONDS (9.0-12.0) Prothromb Time International Ratio 1.1 (0.9-1.1) Activated Partial Thromboplast Time 28.5 SECONDS (21.0-31.0) Partial Thromboplastin Ratio 1.1 Anion Gap 10.0 mmol/L (3-11) Est Creatinine Clear Calc Drug Dose 30.8 ml/min Estimated GFR () 31.6 Estimated GFR (Non- 27.2 BUN/Creatinine Ratio 14.7 (10-20) Calcium Level 8.8 mg/dl (8.5-10.1) Total Bilirubin 1.5 mg/dl (0.2-1) Aspartate Amino Transf (AST/SGOT) 20 U/L (15-37) Alanine Aminotransferase (ALT/SGPT) 22 U/L (12-78) Alkaline Phosphatase 75 U/L (45-117) Troponin I 0.041 ng/ml (0-0.045) Total Protein 6.7 gm/dl (6.4-8.2) Albumin 3.2 gm/dl (3.4-5.0) Globulin 3.5 gm/dl (2.5-4.0) Albumin/Globulin Ratio 0.9 (0.9-2) Lipase 89 U/L (73-393) Urine Color YELLOW Urine Appearance CLOUDY (CLEAR) Urine pH 8.5 (4.5-7.5) Urine Specific [place] 1.011 (1.000-1.030) Urine Protein 2+ (NEG) Urine Glucose (UA) NEG (NEG) Urine Ketones NEG (NEG) Urine Occult Blood 1+ (NEG) Urine Nitrite NEG (NEG) Urine Bilirubin NEG (NEG) Urine Urobilinogen NEG (NEG) Urine Leukocyte Esterase LARGE (NEG) Urine WBC (Auto) >30 /hpf (0-5) Urine RBC (Auto) 10-30 /hpf (0-4) Urine Hyaline Casts (Auto) 1-5 /lpf (0-5) Urine Epithelial Cells (Auto) 0-5 /lpf (0-5) Urine Bacteria (Auto) 2+ (NEG) Urine Yeast (Auto) (NONE PRSENT) Lactic Acid Level 2.8 mmol/L (0.4-2.0) Laboratory results as stated above per my review. Medications Administered Medications (Trade) Dose Ordered Sig/Neil Route Start Time Stop Time Status Last Admin Dose Admin Acetaminophen (Tylenol Tab) 1,000 mg NOW STAT PO 03/23/17 16:59 03/23/17 17:03 DC 03/23/17 17:10 1,000 MG Lactated Ringer's 1,000 ml @ 999 mls/hr Q1H1M ONCE IV 03/23/17 17:00 03/23/17 18:00 DC 03/23/17 17:10 999 MLS/HR Ciprofloxacin/ Dextrose (Cipro / D5W) 400 mg NOW STAT IV 03/23/17 18:31 03/23/17 18:35 DC 03/23/17 19:45 400 MG Sodium Chloride 1,000 ml @ 1,000 mls/hr Q1H ONCE IV 03/23/17 18:45 03/23/17 19:44 DC 03/23/17 19:45 1,000 MLS/HR ECG Indication: chest pain Rate (beats per minute): 78 Rhythm: sinus rhythm Findings: PAC, no acute ischemic change, other (Normal axis) ED Course 423: Past medical records reviewed. The patient was evaluated in room C10. A complete history and physical examination was performed. 1659: Ordered Tylenol Tab 1000 mg PO. 1700: Ordered Lactated Ringer's 1000 ml @ 999 mls/hr IV. 1831: Ordered Ciprofloxacin/Dextrose 400 mg IV. 1845: Ordered Sodium Chloride 1000 ml @ 1000 mls/hr IV. 1854: I reevaluated the patient and updated her on her results. 1903: I discussed the patient's case with Dr. Bassam Cardenas [facility] Immigration Case Worker. He understands the patient's condition and agrees to accept the patient. The patient will be further evaluated. Medical Decision Nurses notes reviewed. Medical history sheet reviewed. Differential diagnosis includes but is not limited to: UTI, pyelonephritis, viral infection, dehydration, and metabolic disorder. The patient is here with significant flank pain and fever. Multiple labs, urinalysis and imaging were obtained. Please see above. Lactic acid is elevated. The patient has lots of white cells in her urine which is consistent with a clinical diagnosis of pyelonephritis. The patient was also felt to be dehydrated. She was given multiple liters of fluid. Patient was given IV ciprofloxacin after blood cultures were obtained. I Discussed care with the patient, family members and Dr. Somers. Medication Reconcilliation Current Medication List: was personally reviewed by me Blood Pressure Screening Patient's blood pressure: Normal blood pressure Consults Time Called: 1899 Consulting Physician: Dr. Bassam Cardenas [facility] Immigration Case Worker Returned Call: 1903 I discussed the patient's case with Dr. Bassam Cardenas [facility] Immigration Case Worker. He understands the patient's condition and agrees to accept the patient. The patient will be further evaluated. Impression Primary Impression: Acute pyelonephritis Additional Impressions: Elevated lactic acid level Dehydration Scribe Attestation The scribe's documentation has been prepared under my direction and personally reviewed by me in its entirety. I confirm that the note above accurately reflects all work, treatment, procedures, and medical decision making performed by me. Departure Information Dispostion Being Evaluated By Hospitalist Referrals Marito Sheppard M.D. (PCP) Patient Instructions My [facility] Problem Qualifiers
[2017-03-23 17:49] LABS: URINE APPEARANCE CLOUDY (CLEAR); URINE BILIRUBIN NEG (NEG); URINE COLOR YELLOW; URINE EPITHELIAL CELL AUTO 0-5 /lpf (0-5); URINE NITRITE NEG (NEG); URINE PH 8.5 (4.5-7.5); URINE SPECIFIC GRAVITY 1.011 (1.000-1.030); UROBILINOGEN NEG (NEG); ZZURINE CULT IF INDIC CATH YES
--- NOTE | 2017-03-23 17:55 | DIAGNOSTIC IMAGING REPORT ---
CHEST ONE VIEW PORTABLE HISTORY: Atypical chest pain. fever COMPARISON: Chest 08/23/2015. FINDINGS: No focal lung consolidations to suggest pneumonia. No evidence for pulmonary edema. Small nodular density at the left lung base may be due to a tortuous vessel. The heart is stable in size. No pleural effusions. No pneumothorax. IMPRESSION: No acute process. Electronically signed by: Ryland Randolph M.D. 03/23/2017 5:54 PM Dictated Date/Time: 03/23/2017 5:52 PM
[2017-03-23 17:57] LABS: BUN/CREATININE RATIO 14.7 (10-20); CALCIUM 8.8 mg/dl (8.5-10.1); CREATININE 1.8 mg/dl (0.60-1.20); POTASSIUM 3.9 mmol/L (3.5-5.1)
[2017-03-23 18:00] LABS: HEMATOCRIT 33.4 % (37-47); MEAN CELL VOLUME 101.8 fL (80-100); MEAN CORPUSCULAR HEMOGLOBIN 32.6 pg (25-34); PLATELET COUNT 115 K/uL (130-400); RED BLOOD COUNT 3.28 M/uL (4.2-5.4); WHITE BLOOD COUNT 5.95 K/uL (4.8-10.8)
[2017-03-23 18:01] LABS: COMPLETE YES; EOS % 0.2 %; IG% 0.2 %; LARGE PLATELETS 1+; LYMPH % 5.4 %; LYMPH ABS # 0.32 K/uL (1.2-3.4); MONO % 1.8 %; NEUT % 92.4 %; PLT ESTIMATE DECREASED
[2017-03-23 18:02] LABS: ALB/GLOB RATIO 0.9 (0.9-2)
[2017-03-23 18:19] LABS: MANUAL MICROSCOPIC REQUIRED? NO; REVIEW REQ? YES; SULFASALICYLIC ACID POS (NEG)
[2017-03-23] MEDS ORDERED: CIPROFLOXACIN 400MG / 200ML D5W IV STA (18:31)
[2017-03-23] MEDS ORDERED: SODIUM CHLORIDE 0.9% 1000ML 1,000 ML IV ONE (18:45)
[2017-03-23] MEDS ORDERED: MAGNESIUM HYDROXIDE SUSP 30 ML UDC PO PRN (20:15)
--- NOTE | 2017-03-23 21:37 | DIAGNOSTIC IMAGING REPORT ---
RENAL ULTRASOUND HISTORY: left pyelonephritis. R/O hydronephrosis COMPARISON: Renal ultrasound 04/16/2010. Abdomen and pelvis CT 07/23/2015. FINDINGS: Right kidney: 10.3 cm. No hydronephrosis. Normal corticomedullary differentiation and cortical thickness. Bilobed 3.8 x 2.2 cm hypoechoic lesion within the interpolar region. This is increased in size from the prior CT. This appears to contain a thin septation. Left kidney: 10.4 cm. No hydronephrosis. Normal corticomedullary differentiation and cortical thickness. There is a 4 mm stone within the upper pole, unchanged. Bladder: No bladder wall thickening. IMPRESSION: 1. No hydronephrosis. 2. A 4 mm left renal stone, unchanged. 3. A 3.8 x 2.2 cm hypoechoic lesion within the right kidney. This appears to contain a thin septation. This has slightly increased in size from the prior CT. Electronically signed by: Ryland Randolph M.D. 03/23/2017 9:36 PM Dictated Date/Time: 03/23/2017 9:32 PM
[2017-03-23 21:38] VITALS: BP 118/69; PULSE 96; TEMP 37.4; O2SAT 94; BMI 41.4
--- NOTE | 2017-03-23 22:02 | History and Physical ---
History & Physical Date of Service Mar 23, 2017. History & Physical ADMISSION DATE: 03/23/2017 CHIEF COMPLAINT: 76-year-old female admitted through the emergency room with urinary tract infection and suspected left pyelonephritis. PRESENT ILLNESS: patient with multiple medical problems including type 2 diabetes mellitus, arterial hypertension, nephrolithiasis, inflammatory arthritis, obesity. She stated that she started to feel sick Thursday night. She woke up in the middle of the night on 2:30 she was having pain in the left side of her abdomen and left side of her back. She did not check her temperature. She felt nauseous. No vomiting. No diarrhea. She took Tylenol. The following morning she was still having pain. This went on through the day. Again she did not check her temperature. She was feeling nauseous. She called the office in the afternoon. She sounded quite distressed on the phone. She was having severe pain. She was feeling nauseous. She was quite worried. We asked her to come to the emergency room. She was evaluated. Her laboratory tests showed evidence of urinary tract infection. She was having pain in the left flank area and left side of her abdomen worrisome for pyelonephritis. She does have history of nephrolithiasis. Laboratory tests were ordered. Cultures were done. She received one dose of IV ciprofloxacin in the emergency room. I saw the patient in the emergency room. She was admitted for further treatment. PAST MEDICAL HISTORY: * type 2 diabetes mellitus. Long-standing. Currently on insulin * Arterial hypertension. Long-standing. Treated and controlled. * Invasive ductal carcinoma of the left breast diagnosed in 2011. She had a partial mastectomy. She was treated with radiation therapy. She received 5 years of tamoxifen. * Endometrial adenocarcinoma diagnosed in 2007 when she presented with postmenopausal bleeding. She had a BENSON/BSO. No further treatment was needed * Nephrolithiasis. Long-standing. 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 Has 3 children. No history of any smoking no alcohol. No excessive coffee tea or soft drinks. 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 FAMILY HISTORY: her mother age 78 had a stroke. Her father age 49 had pancreatic cancer. She had 5 sisters and 4 brothers. One brother age 59 of liver cirrhosis. Alcohol related. One sister of cancer. Not sure of the type. She does relate was a rare form. She was 74 years old. One son age 51 has multiple myeloma. One son is diabetic. Her daughter is treated for arterial hypertension. ALLERGIES: the only true reaction was for Vicodin which caused her increased heart rate and shortness of breath. CURRENT MEDICATIONS: as noted on her home medication list REVIEW OF SYSTEMS: she denies any headache or dizziness or lightheadedness. She is post cataract surgery. No earache sore throat or neck pain. Denies any chest pain pressure or tightness. No shortness of breath. She is complaining of pain mostly in the left side of her mid and lower abdomen and also in the left flank area. She felt nauseous. No vomiting. No problems with her bowel movements. Was having frequent urination. PHYSICAL EXAMINATION: GENERAL : Well developed. Well nourished. No acute distress.weight 102.73 kg, height 157.5 cm, BMI 41.4. VITAL SIGNS : Blood Pressure : 131/71, pulse 98, respiration 20, temperature 38.1 orally, oxygen saturation 100% on room air. Pepcid 20 her rectal temperature was taken and it was 39.3. SKIN : Warm and dry. No rash. HEENT :Post cataract surgery both eyes. No mucosal abnormalities. NECK : Supple. No adenopathy. No thyromegaly. No JVD. Normal carotid pulses. No carotid bruit. HEART: Regular heart sounds without any murmur rub or gallop. PMI not displaced. LUNGS: Clear. Normal breath sounds. ABDOMEN: Soft. Slight tenderness in the left side of her abdomen. No guarding or rebound. No evidence of any mass. Good bowel sounds. BACK: No spinal tenderness. She does have left flank pain. EXTREMITIES: Bilateral leg edema. No clubbing no cyanosis. Osteoarthritic changes. NEUROLOGICAL EXAMINATION: No evidence of any deficit. LABORATORY TEST; WBC count 5950, hemoglobin 10.7, hematocrit 33.4, platelet count 115,000. Sodium 136, potassium 3.9, chloride 99, CO2 27, BUN 27, creatinine 1.8, glucose 164, lactic acid 2.8, calcium 8.8, total bilirubin 1.5, AST 20, ALT 22, alkaline phosphatase 75, troponin I 0.041, total protein 6.7, albumin 3.2, globulin 3.5, lipase 89. chest x-ray showed no acute changes electrocardiogram showed a sinus rhythm with premature atrial contractions ASSESSMENT: * Urinary tract infection * Left pyelonephritis * Type 2 diabetes mellitus * Arterial hypertension * Osteoarthritis * Morbid obesity * History of nephrolithiasis * Chronic kidney disease PLAN: as noted in the emergency room cultures were done. She was given one dose of ciprofloxacin intravenously. She was given IV fluid. She was admitted to a medical bed. Resuscitation that were one. All her laboratory tests were ordered. I changed her antibiotic to Unasyn 3 g IV every 6 hours. This was just based on her history of urinary tract infections. Since approximately 2011 she has had multiple infections and always was due to Enterococcus faecalis. It was sensitive to penicillin. IV fluid with normal saline. IV Zofran for nausea. Tylenol for any fever. Will await further cultures. Decide on any change in her antibiotics. I also ordered an ultrasound of her kidneys. Need to rule out the possibility of hydronephrosis.
[2017-03-23] MEDS ORDERED: ACETAMINOPHEN 325 MG TAB ONE (22:13)
[2017-03-23] MEDS ORDERED: GLUCOSE 10 TABS/TUBE PO PRN (23:00)
[2017-03-23] MEDS ORDERED: DEXTROSE 50% 50 ML SYR IV PRN (23:00)
[2017-03-23] MEDS ORDERED: GLUCAGON FOR INJ 1 MG VIAL SQ PRN (23:00)
[2017-03-23] MEDS ORDERED: GLUCOSE 40% GEL 15 GM TUBE PO PRN (23:00)
[2017-03-23 23:12] LABS: INR 1.1 (0.9-1.1); PARTIAL THROMBOPLASTIN RATIO 1.1; PROTHROMBIN TIME (PATIENT) 11.5 SECONDS (9.0-12.0)
[2017-03-23 23:59] VITALS: BP 97/56; PULSE 94; TEMP 36.9; O2SAT 93
[2017-03-24] MEDS: SODIUM CHLORIDE 0.9% 1000ML 1,000 ML IV SCH ×3 (00:14→21:04)
[2017-03-24] MEDS: AMPICILLIN/SULBACTAM SOD INJ 3,000 MG in SODIUM CHLORIDE 0.9% 100ML 100 ML IV SCH ×4 (00:14→16:22)
[2017-03-24] MEDS: ACETAMINOPHEN 325 MG TAB PO PRN ×2 (05:17→21:11)
[2017-03-24] MEDS ORDERED: PNEUMOCOCCAL POLYSACCHARIDES 25 MCG/0.5 ML VIAL/SYR IM. ONE (06:15)
[2017-03-24] MEDS ORDERED: PNEUMOCOCCAL ADMINISTRATION CHARGE ONE (06:15)
[2017-03-24] MEDS ORDERED: INFLUENZA ADMINISTRATION CHARGE ONE (06:15)
[2017-03-24] MEDS ORDERED: INFLUENZA VACCINE HIGH DOSE 65+ 0.5 ML SYR IM. ONE (06:15)
[2017-03-24 07:01] LABS: HEMATOCRIT 30.8 % (37-47); MEAN CELL VOLUME 101.7 fL (80-100); MEAN CORPUSCULAR HGB CONC 33.4 g/dl (32-36); MEAN PLATELET VOLUME 12.4 fL (7.4-10.4); PLATELET COUNT 100 K/uL (130-400); RED BLOOD COUNT 3.03 M/uL (4.2-5.4); WHITE BLOOD COUNT 3.87 K/uL (4.8-10.8)
[2017-03-24 07:06] VITALS: BP 131/62; PULSE 104; TEMP 39.1; O2SAT 92
[2017-03-24 07:06] LABS: ANISOCYTOSIS PRESENT; COMPLETE YES; DOHLE BODIES 1+; IG% 0.3 %; LYMPH % 9.3 %; LYMPH ABS # 0.36 K/uL (1.2-3.4); MONO % 0.3 %; NEUT % 90.1 %; TOXIC GRANULATION 1+; VACUOLIZATION 1+
[2017-03-24 07:22] LABS: BUN/CREATININE RATIO 14.4 (10-20); CALCIUM 8.4 mg/dl (8.5-10.1); MAGNESIUM 1.7 mg/dl (1.8-2.4)
--- NOTE | 2017-03-24 07:57 | Clinical Documentation Query ---
CLINICAL DOCUMENTATION QUERY QUERY 1 OF 2 A 76 yo female admitted for urinary tract infection and pyelonephritis. In your clinical opinion is this patient being managed for: ( x ) Sepsis in the setting of UTI and pyelonephritis ( ) Not Agree ( ) Other explanation of clinical findings (Please Explain) ( ) Unable to determine (Please Define) ( ) Need to Discuss The medical record reflects the following clinical findings, treatment, and risk factors. Clinical Indicators: Temp 39.3, pulse 101, bp 91/63, lactic acid 2.8 Treatment: Cipro IV, ampicillin IV, blood cultures, IV hydration Risk Factors: Age, UTI, acute pyelonephritis QUERY 2 OF 2 Documented assessments include chronic kidney disease. For clarification: In your clinical opinion is this patient being managed for: ( x ) CKD stage 4 ( ) Not Agree ( ) Other explanation of clinical findings (Please Explain) ( ) Unable to determine (Please Define) ( ) Need to Discuss The medical record reflects the following clinical findings, treatment, and risk factors. Clinical Indicators: GFR 27.2, creatinine 1.80 Treatment: IV hydration, I&O, Risk Factors: Age, DM II, HTN, obesity, UTI Please clarify and document your clinical opinion in the progress notes and discharge summary. Terms such as "probable", "suspected", "likely", "questionable", "possible", or "still to be ruled out" are acceptable. IF IN AGREEMENT, YOU MUST DOCUMENT ABOVE DIAGNOSTIC STATEMENT IN DAILY PROGRESS NOTES AND DISCHARGE SUMMARY. This document is not part of the patient's record. Thank You, Alexandra Mar RN [phone]
[2017-03-24 08:08] LABS: ESTIMATED AVERAGE GLUCOSE 166 mg/dl; HA1C FLAG Normal (Normal)
[2017-03-24] MEDS: MAGNESIUM SULFATE 1GM / D5W 1 GM in PREMIXED IN D5W 100 ML IV SCH ×2 (08:27→09:16)
[2017-03-24] MEDS: ALLOPURINOL 300 MG TAB PO SCH (08:28)
[2017-03-24] MEDS: METOPROLOL TARTRATE 50 MG TAB PO SCH ×3 (08:28→21:15)
[2017-03-24] MEDS: TRAMADOL HCL 50 MG TAB PO PRN ×4 (08:30→22:13)
[2017-03-24] MEDS: INSULIN ASPART 100 UNITS/ML 3 ML PEN SC SCH ×4 (08:33→21:00)
[2017-03-24] MEDS: HEPARIN SOD 5000 UNIT/0.5 ML CARP SQ SCH ×2 (08:34→21:00)
[2017-03-24] MEDS: ONDANSETRON INJ 8 MG in DEXTROSE 5% 50ML 50 ML IV PRN ×2 (09:16→21:04)
[2017-03-24 11:16] VITALS: TEMP 36.8; Ht 157.5 cm; Wt 104.5 kg
[2017-03-24 15:30] VITALS: BP 90/52; PULSE 69; TEMP 36.6; O2SAT 95
[2017-03-24 17:43] LABS: BUN/CREATININE RATIO 13.8 (10-20); CALCIUM 8.1 mg/dl (8.5-10.1); CREATININE 2.4 mg/dl (0.60-1.20); MAGNESIUM 2.1 mg/dl (1.8-2.4)
--- NOTE | 2017-03-24 19:58 | Progress Note ---
Progress Note Date of Service Mar 24, 2017. Progress Note 76-year-old female admitted with: * sepsis in the setting of a urinary tract infection * Urinary tract infection * Left pyelonephritis * Type 2 diabetes mellitus * Osteoarthritis * History of breast cancer Patient was admitted. Cultures were done. She was given IV fluid. Started on IV Unasyn. Early this morning she had recurrent fever. None throughout the rest of the day. She is feeling slightly improved. No headache or dizziness. No chest pain no shortness of breath. No abdominal pain. Still complaining of slight left flank pain. Both blood cultures and also her urine culture were all reported to be growing gram-negative bacilli. Identification and sensitivity pending. EXAMINATION: GENERAL : Well developed. Well nourished. No acute distress. VITAL SIGNS : Blood Pressure : 131/62, pulse 104, respiration 24, temperature 39.1, oxygen saturation 92% on room air. For the rest of the day her temperature was 36.8 and 36.6. SKIN : Warm and dry. No rash. HEENT :No mucosal abnormality NECK : Supple. No adenopathy. No thyromegaly. No JVD. HEART: Regular heart sounds without any murmur rub or gallop. LUNGS: Clear. Normal breath sounds. ABDOMEN: Soft nontender. No organomegaly or masses. Good bowel sounds. BACK: No spinal tenderness. Left flank pain. EXTREMITIES : No edema clubbing or cyanosis. No joint or muscle tenderness. LABORATORY TESTS: WBC count 3870, hemoglobin 10.3, hematocrit 30.8, platelet count 100,000. sodium 136, potassium 4.0, chloride 100, CO2 26, BUN 29, creatinine 2.0, glucose 182, calcium 8.4, magnesium 1.7. Lactic acid 3.1. Hemoglobin A1c 7.4%. ASSESSMENT: * gram-negative sepsis in the setting of urinary tract infection * Left pyelonephritis * Type 2 diabetes mellitus * Acute superimposed on chronic renal failure * Thrombocytopenia PLAN: * continue IV fluid * Her PRP was repeated this afternoon. Sodium 132, potassium 4.0, chloride 98, CO2 26, BUN 33, creatinine 2.4, glucose 178, calcium 8.1, magnesium 2.1. Lactic acid 2.9. * The dose of Unasyn was adjusted * Continue her other medications unchanged * Repeat laboratory tests in the morning * The gram-negative bacilli identification and sensitivity is pending.
[2017-03-24 21:00] VITALS: BP 96/68; PULSE 63
[2017-03-25 00:38] VITALS: BP 92/56; PULSE 75; TEMP 36.6; O2SAT 96
[2017-03-25] MEDS: TRAMADOL HCL 50 MG TAB PO PRN ×4 (02:48→20:52)
[2017-03-25] MEDS ORDERED: AMPICILLIN/SULBACTAM SOD INJ 3,000 MG in SODIUM CHLORIDE 0.9% 100ML 100 ML IV SCH (04:00)
[2017-03-25] MEDS: SODIUM CHLORIDE 0.9% 1000ML 1,000 ML IV SCH ×2 (04:19→18:44)
[2017-03-25] MEDS: ACETAMINOPHEN 325 MG TAB PO PRN (04:22)
[2017-03-25 06:23] LABS: HEMATOCRIT 25.7 % (37-47); MEAN CELL VOLUME 100.8 fL (80-100); MEAN CORPUSCULAR HEMOGLOBIN 33.7 pg (25-34); MEAN CORPUSCULAR HGB CONC 33.5 g/dl (32-36); MEAN PLATELET VOLUME 12.9 fL (7.4-10.4); PLATELET COUNT 92 K/uL (130-400); RED BLOOD COUNT 2.55 M/uL (4.2-5.4); WHITE BLOOD COUNT 15.18 K/uL (4.8-10.8)
[2017-03-25 06:50] LABS: BUN/CREATININE RATIO 15.9 (10-20); CALCIUM 7.7 mg/dl (8.5-10.1); MAGNESIUM 2.2 mg/dl (1.8-2.4); POTASSIUM 3.5 mmol/L (3.5-5.1)
[2017-03-25 07:18] LABS: ANISOCYTOSIS PRESENT; BASO % 0.1 %; BASO ABS # 0.01 K/uL (0-0.2); COMPLETE YES; DOHLE BODIES 1+; EOS % 0.9 %; LYMPH % 7.4 %; LYMPH ABS # 1.13 K/uL (1.2-3.4); NEUT % 81.6 %; VACUOLIZATION 1+
[2017-03-25 07:48] VITALS: BP 123/69; PULSE 81; TEMP 36.6; O2SAT 95
[2017-03-25] MEDS ORDERED: CIPROFLOXACIN / D5W 400 MG in PREMIXED IN D5W 200 ML IV ONE (08:00)
[2017-03-25] MEDS ORDERED: MAGNESIUM HYDROXIDE SUSP 30 ML UDC PO ONE (08:00)
[2017-03-25] MEDS: CETIRIZINE HCL 10 MG TAB PO SCH (08:29)
[2017-03-25] MEDS: ALLOPURINOL 300 MG TAB PO SCH (08:29)
[2017-03-25] MEDS: POLYETHYLENE (MIRALAX) 17 GM PACK PO SCH (08:29)
[2017-03-25] MEDS: METOPROLOL TARTRATE 50 MG TAB PO SCH ×2 (08:29→20:41)
[2017-03-25] MEDS: INSULIN ASPART 100 UNITS/ML 3 ML PEN SC SCH ×4 (08:33→20:45)
[2017-03-25] MEDS: HEPARIN SOD 5000 UNIT/0.5 ML CARP SQ SCH ×2 (08:34→20:42)
[2017-03-25 15:30] VITALS: BP 138/82; PULSE 66; TEMP 36.9; O2SAT 97
[2017-03-25 16:00] VITALS: O2SAT 97
[2017-03-25] MEDS ORDERED: CIPROFLOXACIN / D5W 200 MG in PREMIXED IN D5W 100 ML IV SCH (20:00)
[2017-03-25 20:38] VITALS: BP 144/75; PULSE 64
--- NOTE | 2017-03-25 21:29 | Progress Note ---
Progress Note Date of Service Mar 25, 2017. Progress Note 76-year-old female admitted with * sepsis in the setting of a urinary tract infection * Urinary tract infection * Left pyelonephritis * Type 2 diabetes mellitus * History of gout * Arterial hypertension * History of nephrolithiasis Patient was admitted. Cultures were done. She received one dose of ciprofloxacin in the emergency room. Subsequently she was placed on Unasyn. She was hydrated with IV fluid. Both blood cultures were positive for gram-negative bacilli. Her urine culture was also growing the same organism. Identified as an Escherichia coli. Resistant to Unasyn. She is now afebrile. Her condition has improved. She denied any headache or dizziness. No chest pain no shortness of breath. No abdominal pain. No nausea no vomiting. Tolerating her diet very well. Her left flank pain is resolving. She has not had a bowel movement. No problem urinating. EXAMINATION: GENERAL : Well developed. Well nourished. No acute distress VITAL SIGNS : Blood Pressure : 123/69, pulse 81, respiration 12, temperature 36.6, oxygen saturation 95% on room air. SKIN : Warm and dry. No rash. HEENT :No mucosal abnormality NECK : Supple. No adenopathy. No thyromegaly. No JVD. HEART: Regular heart sounds without any murmur rub or gallop. LUNGS: Clear. Normal breath sounds. ABDOMEN: Soft nontender. No organomegaly or masses. Good bowel sounds. BACK: No spine or CVA tenderness. EXTREMITIES : No edema clubbing or cyanosis. No joint or muscle tenderness. LABORATORY TESTS: WBC count 15,180, hemoglobin 8.6, hematocrit 25.7, platelet count 92,000. sodium 136, potassium 3.5, chloride 102, CO2 27, BUN 32, creatinine 2.0, calcium 7.7, magnesium 2.2. ASSESSMENT: * sepsis in the setting of urinary tract infection secondary to Escherichia coli * Left pyelonephritis * Acute and chronic renal insufficiency * Type 2 diabetes mellitus * Arterial hypertension * Osteoarthritis * Obesity PLAN: * Unasyn was discontinued * She was started on ciprofloxacin * Continuing her other medications * Encourage out of bed * MiraLax for constipation and milk of magnesia * She does have problems with allergies and she was restarted on her Zyrtec
[2017-03-26 00:09] VITALS: BP 112/68; PULSE 76; TEMP 36.9; O2SAT 92
[2017-03-26] MEDS: TRAMADOL HCL 50 MG TAB PO PRN ×2 (00:57→09:26)
[2017-03-26] MEDS: SODIUM CHLORIDE 0.9% 1000ML 1,000 ML IV SCH ×3 (00:57→19:42)
[2017-03-26 07:13] VITALS: BP 123/79; PULSE 115; TEMP 37; O2SAT 93
[2017-03-26 07:31] LABS: BUN/CREATININE RATIO 17.2 (10-20); CALCIUM 8.5 mg/dl (8.5-10.1); CREATININE 1.8 mg/dl (0.60-1.20); POTASSIUM 4.3 mmol/L (3.5-5.1)
[2017-03-26] MEDS: ALLOPURINOL 300 MG TAB PO SCH (07:46)
[2017-03-26] MEDS: POLYETHYLENE (MIRALAX) 17 GM PACK PO SCH (07:46)
[2017-03-26] MEDS: CETIRIZINE HCL 10 MG TAB PO SCH (07:46)
[2017-03-26] MEDS: METOPROLOL TARTRATE 50 MG TAB PO SCH ×2 (07:46→19:43)
[2017-03-26] MEDS: INSULIN ASPART 100 UNITS/ML 3 ML PEN SC SCH ×4 (07:48→20:49)
[2017-03-26] MEDS: HEPARIN SOD 5000 UNIT/0.5 ML CARP SQ SCH ×3 (07:48→19:24)
[2017-03-26 07:52] LABS: HEMATOCRIT 27.9 % (37-47); MEAN CELL VOLUME 100.4 fL (80-100); MEAN CORPUSCULAR HEMOGLOBIN 33.8 pg (25-34); MEAN CORPUSCULAR HGB CONC 33.7 g/dl (32-36); MEAN PLATELET VOLUME 12.6 fL (7.4-10.4); PLATELET COUNT 114 K/uL (130-400); RED BLOOD COUNT 2.78 M/uL (4.2-5.4); WHITE BLOOD COUNT 12.93 K/uL (4.8-10.8)
[2017-03-26 07:54] LABS: BASO % 0.2 %; BASO ABS # 0.02 K/uL (0-0.2); COMPLETE YES; IG% 0.4 %; LYMPH % 15.1 %; LYMPH ABS # 1.95 K/uL (1.2-3.4); NEUT % 72.3 %; PLT ESTIMATE DECREASED
[2017-03-26] MEDS: CIPROFLOXACIN / D5W 400 MG in PREMIXED IN D5W 200 ML IV SCH ×2 (09:25→19:41)
[2017-03-26 14:54] VITALS: BP 104/66; PULSE 116; TEMP 36.6; O2SAT 92
--- NOTE | 2017-03-26 17:55 | Progress Note ---
Progress Note Date of Service Mar 26, 2017. Progress Note 76-year-old female admitted with * Sepsis in the setting of urinary tract infection * Left pyelonephritis * Type 2 diabetes mellitus * Arterial hypertension * Osteoarthritis * History of gout * History of nephrolithiasis Patient was admitted. Cultures were done. She was started on IV Unasyn. Blood cultures and urine culture grew E. coli. Was resistant to Unasyn. She was changed to ciprofloxacin. She is afebrile. Complains of recurrent nausea. Most likely related to the antibiotic. Denied any headache or dizziness. No chest pain or shortness of breath. No abdominal pain. No back pain. No pain in her back or extremities. EXAMINATION She is well-developed. No distress Vital signs blood pressure 123/79, pulse 115, respiration 20, temperature 37, oxygen saturation 93% on room air Skin is warm and dry. No rash. HEENT no evidence of a mucosal abnormality Neck is supple. No JVD. No adenopathy. Heart regular heart sounds. Lungs are clear. Abdomen is soft nontender without organomegaly or masses Back no spinal tenderness Extremities no edema clubbing or cyanosis. Osteoarthritic changes LABORATORY TESTS WBC count 12,930, hemoglobin 9.4, hematocrit 37.9, platelet count 114,000. Sodium 136, potassium 4.3, chloride 105, CO2 25, BUN 31, creatinine 1.8, glucose 105, calcium 8.5. ASSESSMENT * Sepsis in the setting of urinary tract infection. Urine culture and blood cultures grew E. coli. * Left pyelonephritis * Type 2 diabetes mellitus * Arterial hypertension PLAN * Her ciprofloxacin was adjusted * Continuing all her medications * Continue IV fluid * Encourage ambulation * Repeat laboratory tests in the morning
[2017-03-26 19:41] VITALS: BP 127/80; PULSE 96
[2017-03-26 23:53] VITALS: BP 106/72; PULSE 111; TEMP 37.3; O2SAT 91
[2017-03-27] MEDS: SODIUM CHLORIDE 0.9% 1000ML 1,000 ML IV SCH (05:45)
[2017-03-27 07:39] VITALS: BP 118/81; PULSE 115; TEMP 36.7; O2SAT 92
[2017-03-27] MEDS: ALLOPURINOL 300 MG TAB PO SCH (08:04)
[2017-03-27] MEDS: HEPARIN SOD 5000 UNIT/0.5 ML CARP SQ SCH ×2 (08:04→20:50)
[2017-03-27] MEDS: POLYETHYLENE (MIRALAX) 17 GM PACK PO SCH (08:04)
[2017-03-27] MEDS: CIPROFLOXACIN / D5W 400 MG in PREMIXED IN D5W 200 ML IV SCH ×2 (08:04→20:49)
[2017-03-27] MEDS: CETIRIZINE HCL 10 MG TAB PO SCH (08:04)
[2017-03-27] MEDS: METOPROLOL TARTRATE 50 MG TAB PO SCH ×2 (08:04→20:50)
[2017-03-27] MEDS: INSULIN ASPART 100 UNITS/ML 3 ML PEN SC SCH ×4 (08:13→20:53)
[2017-03-27 08:25] LABS: BASO % 0.2 %; BASO ABS # 0.01 K/uL (0-0.2); COMPLETE YES; EOS % 3.4 %; HEMATOCRIT 29.8 % (37-47); IG% 0.4 %; LYMPH % 20.5 %; LYMPH ABS # 1.14 K/uL (1.2-3.4); MEAN CORPUSCULAR HEMOGLOBIN 32.2 pg (25-34); MEAN CORPUSCULAR HGB CONC 32.2 g/dl (32-36); MEAN PLATELET VOLUME 10.7 fL (7.4-10.4); MONO % 14.5 %; PLATELET COUNT 113 K/uL (130-400); RED BLOOD COUNT 2.98 M/uL (4.2-5.4); WHITE BLOOD COUNT 5.57 K/uL (4.8-10.8)
[2017-03-27 08:56] LABS: BUN/CREATININE RATIO 17.5 (10-20); CALCIUM 8.5 mg/dl (8.5-10.1); CREATININE 1.5 mg/dl (0.60-1.20); POTASSIUM 4.3 mmol/L (3.5-5.1)
[2017-03-27 15:03] VITALS: BP 135/97; PULSE 105; TEMP 36.9; O2SAT 95
--- NOTE | 2017-03-27 17:34 | Progress Note ---
Progress Note Date of Service Mar 27, 2017. Progress Note 76-year-old female with * Sepsis in the setting of urinary tract infection * Left pyelonephritis * Type 2 diabetes mellitus * Osteoarthritis * Obesity * History of nephrolithiasis After admission cultures were done. Eventually both blood cultures and a urine culture grew E. coli. Initially she was placed on Unasyn. The E. coli was resistant. She was changed to ciprofloxacin. She remains afebrile. Denied any headache or dizziness or lightheadedness. No chest pain no shortness of breath. No abdominal pain. Her left flank pain has resolved. She does have pain in her back and joints related to her degenerative joint disease. Today she did quite well. She was out of bed. She was ambulating. EXAMINATION She is well-developed in no distress. Vital signs blood pressure 118/81, pulse 115, respiration 20, temperature 36.7, oxygen saturation 92% on room air Skin is warm and dry. No rash. HEENT no evidence of any mucosal abnormalities Neck is supple. Nontender. No lymph node or thyroid enlargement. No JVD. Heart regular heart sounds no murmur rub or gallop Lungs are clear Abdomen is obese soft nontender Back no spinal tenderness extremities no edema clubbing or cyanosis LABORATORY TESTS WBC count 5570, hemoglobin 9.6, hematocrit 29.8, platelet count 113,000. Sodium 136, potassium 4.3, chloride 106, CO2 23, BUN 26, creatinine 1.5, glucose 150, calcium 8.5. ASSESSMENT * Sepsis secondary to E. coli in the setting of urinary tract infection also secondary to E. coli * Left pyelonephritis * Type 2 diabetes mellitus PLAN * Her IV fluid was discontinued * Continue IV ciprofloxacin * Continue her other medications * Encouraged to ambulate * If she remains stable I anticipate discharging her tomorrow morning
[2017-03-27 23:53] VITALS: BP 115/70; PULSE 118; TEMP 36.8; O2SAT 97
[2017-03-28] VITALS (7 sets, daily range): BP systolic 117–161; BP diastolic 73–96; PULSE 97–120; TEMP 36.6–36.9; O2SAT 93–98
[2017-03-28] MEDS: ACETAMINOPHEN 325 MG TAB PO PRN (00:03)
[2017-03-28] MEDS: TRAMADOL HCL 50 MG TAB PO PRN ×4 (03:00→23:51)
[2017-03-28 07:58] LABS: BASO % 0.2 %; BASO ABS # 0.01 K/uL (0-0.2); COMPLETE YES; EOS % 3.3 %; HEMATOCRIT 29.8 % (37-47); IG% 1.2 %; LYMPH % 24.8 %; MEAN CELL VOLUME 100.3 fL (80-100); MEAN CORPUSCULAR HGB CONC 32.9 g/dl (32-36); MEAN PLATELET VOLUME 12.5 fL (7.4-10.4); MONO % 21.7 %; NEUT % 48.8 %; PLATELET COUNT 150 K/uL (130-400); RED BLOOD COUNT 2.97 M/uL (4.2-5.4); WHITE BLOOD COUNT 4.83 K/uL (4.8-10.8)
[2017-03-28] MEDS: CETIRIZINE HCL 10 MG TAB PO SCH (08:30)
[2017-03-28] MEDS: ALLOPURINOL 300 MG TAB PO SCH (08:30)
[2017-03-28] MEDS: POLYETHYLENE (MIRALAX) 17 GM PACK PO SCH (08:30)
[2017-03-28 08:32] LABS: BUN/CREATININE RATIO 15.3 (10-20); CALCIUM 8.7 mg/dl (8.5-10.1); CREATININE 1.4 mg/dl (0.60-1.20); POTASSIUM 4.5 mmol/L (3.5-5.1)
[2017-03-28] MEDS: INSULIN ASPART 100 UNITS/ML 3 ML PEN SC SCH ×4 (08:37→21:10)
[2017-03-28] MEDS: HEPARIN SOD 5000 UNIT/0.5 ML CARP SQ SCH (08:40)
[2017-03-28] MEDS: RIVAROXABAN 20 MG TAB PO SCH (09:26)
[2017-03-28] MEDS: CIPROFLOXACIN 500 MG TAB PO SCH ×2 (09:26→21:06)
[2017-03-28] MEDS: SOTALOL HCL 80 MG TAB PO SCH ×2 (09:26→16:06)
[2017-03-28] MEDS: METOPROLOL TARTRATE 1 MG/ML VIAL IV PRN ×3 (10:05→22:23)
[2017-03-28 10:29] LABS: MAGNESIUM 2.1 mg/dl (1.8-2.4); THYROID STIMULATING HORMONE 1.3 uIu/ml (0.300-4.500)
[2017-03-28] MEDS ORDERED: PERFLUTREN LIPID MICROSPHERE (DEFINITY) IV ONE (10:54)
--- NOTE | 2017-03-28 11:07 | DIAGNOSTIC IMAGING REPORT ---
SINGLE VIEW CHEST CLINICAL HISTORY: Atrial fibrillation. FINDINGS: An AP, portable, upright chest radiograph is compared to study dated 03/23/2017. The examination is degraded by portable technique and patient rotation. The heart is enlarged and there is atherosclerotic calcification of the thoracic aorta. There is mild pulmonary vascular congestion. Trace pleural effusions are identified. There is bibasilar atelectasis. No airspace consolidation is seen typical for pneumonia. No pneumothorax is seen. The skeletal structures are osteopenic. The bony thorax is grossly intact. IMPRESSION: 1. Cardiomegaly with evidence of mild congestive failure. 2. Trace pleural effusions. Electronically signed by: Ritesh Hirsch M.D. 03/28/2017 11:05 AM Dictated Date/Time: 03/28/2017 11:04 AM
[2017-03-28] MEDS ORDERED: FUROSEMIDE 40 MG/4 ML VIAL IV STA (11:32)
--- NOTE | 2017-03-28 12:36 | ECHOCARDIOGRAM REPORT ---
*NOTICE TO RECEIVING LIBERTARIAN AGENCY This information is strictly Confidential and protected under [place] law. [place] law prohibits you from making any further disclosure of this information unless further disclosure is expressly permitted by the written consent of the person to whom it pertains or is authorized by law. A general authorization for the release of medical or other information is not sufficient for this purpose. Hospital accepts no responsibility if the information is made available to any other person, INCLUDING THE PATIENT. Interpretation Summary * Name: ANA MOBLEY Study Date: 03/28/2017 10:18 AM BP: 161/96 mmHg * Patient Location: [facility] HR: 108 * : 1940 (M/d/yyyy) Gender: Female Height: 62 in * Age: 76 yrs Ethnicity: [place] Weight: 226 lb * Ordering Physician: Marito Sheppard * Referring Physician: Self, Referred * Performed By: Ivanna Perez RDCS * * Reason For Study: Atrial Fibrillation * BSA: 2.0 m2 * -- Conclusions -- * Very difficult study even with contrast. * The left ventricle is grossly normal size. * There is normal left ventricular wall thickness. * Left ventricular systolic function is low normal. * Ejection Fraction = 50-55%. * The anteroseptum appears hypokinetic. * Aortic valve sclerosis moderate, without significant aortic valvular stenosis. * There is moderate tricuspid regurgitation. * PA pressure 50 mm/hg * The RV is not well seen. TAPSE was normal but in limited views the RV free wall is hypokinetic. * Dilated inferior vena cava with reduced collapsability with sniff indicates an elevated right atrial pressure of 15 mmHg * Elevated LA pressures. Procedure Details * A complete two-dimensional transthoracic echocardiogram was performed (2D, M-mode, Doppler and color flow Doppler). * The study was technically difficult. * The study was technically difficult, but visualization was adequate with the administration of Definity ultrasound contrast. * There were technical limitations due to patient'sbody habitus * A contrast injection of Definity was performed to improve assessment of LV function. * Contrast was injected into an intravenous site in the right arm. * One vial of Definity ultrasound contrast was diluted in normal saline to a total volume of 10 ml. A total of '2' ml of solution was administered during imaging. * Lot # [id number] of Definity utilized for procedure. * Expiration date . * The attending nurse who injected the contrast agent was Johnny Cisse RN. Left Ventricle * The left ventricle is grossly normal size. * There is normal left ventricular wall thickness. * Ejection Fraction = 50-55%. * Left ventricular systolic function is low normal. * The anteroseptum sappears hypokinetic. Right Ventricle * The RV is not well seen. TAPSE was normal but in limited views the RV free wall is hypokinetic. Atria * The left atrium is severely dilated. * The RA is dilated. Mitral Valve * There is moderate mitral annular calcification. * There is mild mitral regurgitation. Tricuspid Valve * The tricuspid valve is normal. * There is moderate tricuspid regurgitation. * PA pressure 50 mm/hg Aortic Valve * Aortic valve sclerosis moderate, without significant aortic valvular stenosis. Great Vessels * There is aortic root sclerosis/calcification. Pericardium/Pleural * Small pericardial effusion. Great Vessels * Dilated inferior vena cava with reduced collapsability with sniff indicates an elevated right atrial pressure of 15 mmHg Left Ventricular Diastolic Function * Elevated LA pressures. MMode 2D Measurements and Calculations IVSd 0.97 cm IVSs 1.3 cm LVIDd 3.9 cm LVIDs 2.8 cm LVPWd 1.0 cm LVPWs 1.6 cm IVS/LVPW 0.93 FS 29.0 % EDV(Teich) 66.0 ml ESV(Teich) 28.8 ml EF(Teich) 56.3 % EDV(cubed) 59.4 ml ESV(cubed) 21.3 ml EF(cubed) 64.1 % % IVS thick 31.0 % % LVPW thick 49.0 % LV mass(C)d 123.7 grams LV mass(C)dI 61.4 grams/m\S\2 LV mass(C)s 129.1 grams LV mass(C)sI 64.1 grams/m\S\2 SV(Teich) 37.1 ml SI(Teich) 18.4 ml/m\S\2 SV(cubed) 38.1 ml SI(cubed) 18.9 ml/m\S\2 Ao root diam 3.2 cm Ao root area 8.2 cm\S\2 ACS 1.5 cm LA dimension 4.5 cm LA/Ao 1.4 LVAd ap4 18.4 cm\S\2 LVLd ap4 7.1 cm EDV(MOD-sp4) 41.1 ml EDV(sp4-el) 40.9 ml LVAs ap4 10.9 cm\S\2 LVLs ap4 5.2 cm ESV(MOD-sp4) 18.5 ml ESV(sp4-el) 19.1 ml EF(MOD-sp4) 54.9 % EF(sp4-el) 53.2 % LVAd ap2 25.3 cm\S\2 LVLd ap2 6.9 cm EDV(MOD-sp2) 74.7 ml EDV(sp2-el) 78.4 ml LVAs ap2 17.5 cm\S\2 LVLs ap2 6.9 cm ESV(MOD-sp2) 37.9 ml ESV(sp2-el) 37.4 ml EF(MOD-sp2) 49.3 % EF(sp2-el) 52.3 % LVLd %diff -1.62 % EDV(MOD-bp) 56.6 ml LVLs %diff 24.2 % ESV(MOD-bp) 30.1 ml EF(MOD-bp) 46.8 % SV(MOD-sp4) 22.6 ml SI(MOD-sp4) 11.2 ml/m\S\2 SV(MOD-sp2) 36.8 ml SI(MOD-sp2) 18.3 ml/m\S\2 SV(MOD-bp) 26.5 ml SI(MOD-bp) 13.2 ml/m\S\2 SV(sp4-el) 21.7 ml SI(sp4-el) 10.8 ml/m\S\2 SV(sp2-el) 41.0 ml SI(sp2-el) 20.4 ml/m\S\2 Doppler Measurements and Calculations MV E max day 146.3 cm/sec MV dec time 0.19 sec Ao V2 max 140.2 cm/sec Ao max PG 7.9 mmHg Ao max PG (full) 5.2 mmHg LV V1 max PG 2.6 mmHg LV V1 max 80.8 cm/sec PA V2 max 112.4 cm/sec PA max PG 5.1 mmHg PI max day 143.4 cm/sec PI max PG 8.2 mmHg PI dec slope 152.0 cm/sec\S\2 PI P1/2t 276.3 msec TR max day 276.4 cm/sec
--- NOTE | 2017-03-28 17:35 | Progress Note ---
Progress Note Date of Service Mar 28, 2017. Progress Note 76-year-old female admitted with sepsis in the setting of urinary tract infection. Blood cultures and urine culture grew Escherichia coli. Treated with IV ciprofloxacin. Her medical problems also include type 2 diabetes mellitus, arterial hypertension, history of nephrolithiasis, obesity, osteoarthritis. Patient has been afebrile. I saw her this morning and the plan was for her to go home. But on examination she was noted to be in atrial fibrillation with rapid ventricular response. Patient was transferred to PCU with telemetry. She is complaining of feeling tired. She denied any headache no dizziness. No chest pain. She does feel dyspneic going to the bathroom and coming back to her bed. No nausea no vomiting. She did have a bowel movement. No urinary problem. EXAMINATION GENERAL : Well developed. Well nourished. No acute distress.Dyspneic VITAL SIGNS : Blood Pressure : 161/96, pulse 108, respiration 20, temperature 36.8, oxygen saturation 95% on room air SKIN : Warm and dry. No rash. HEENT :No mucosal abnormalities NECK : Supple. No adenopathy. No thyromegaly. No JVD. Normal carotid pulses. No carotid bruit. HEART: Irregular heart sounds consistent with atrial fibrillation. 2/6 systolic murmur. No rub or gallop. LUNGS: decreased breath sounds. Basilar rales. ABDOMEN: Soft nontender. No organomegaly or masses. Good bowel sounds. BACK: No spine or CVA tenderness. EXTREMITIES: Trace edema. No clubbing no cyanosis LABORATORY TESTS WBC count 4830, hemoglobin 9.8, hematocrit 29.8, platelet count 150,000. Sodium 138, potassium 4.5, chloride 107, CO2 24, BUN 21, creatinine 1.4, glucose 169, calcium 8.7, TSH 1.3, T4-6 0.1, magnesium 2.1. Chest x-ray showed evidence of cardiomegaly with mild congestive heart failure Electrocardiogram showed atrial fibrillation with rapid ventricular response at 131 beats per minute. ASSESSMENT: * new onset of atrial fibrillation with rapid ventricular response * mild congestive heart failure * Sepsis in the setting of urinary tract infection secondary to Escherichia coli * Arterial hypertension * Type 2 diabetes mellitus * Obesity * Osteoarthritis PLAN * As noted after the discovery of the atrial fibrillation patient was transferred to PCU with telemetry * Discontinued her metoprolol and * Started on sotalol 80 mg every 8 hours * Started on Xarelto * Echocardiogram was ordered * Diureses with IV Lasix * She was switched to oral ciprofloxacin * Repeat chest x-ray in the morning
[2017-03-28] MEDS ORDERED: FUROSEMIDE INJ 40 MG in SYRINGE 0 ML IV ONE (18:00)
[2017-03-29] VITALS (8 sets, daily range): BP systolic 90–126; BP diastolic 58–82; PULSE 106–120; TEMP 36.7–37; O2SAT 93–96
[2017-03-29] MEDS: SOTALOL HCL 80 MG TAB PO SCH ×3 (00:01→16:39)
[2017-03-29] MEDS: MoRPHine SULFATE 4 MG/ML 1 ML CARP\\VIAL IV PRN (02:15)
[2017-03-29 06:26] LABS: BASO % 0.2 %; BASO ABS # 0.01 K/uL (0-0.2); COMPLETE YES; EOS % 3.4 %; HEMATOCRIT 29.1 % (37-47); IG% 0.9 %; LYMPH % 30.6 %; LYMPH ABS # 1.63 K/uL (1.2-3.4); MEAN CORPUSCULAR HEMOGLOBIN 33.3 pg (25-34); MEAN CORPUSCULAR HGB CONC 33.3 g/dl (32-36); MEAN PLATELET VOLUME 12.6 fL (7.4-10.4); MONO % 12.4 %; NEUT % 52.5 %; PLATELET COUNT 157 K/uL (130-400); RED BLOOD COUNT 2.91 M/uL (4.2-5.4); WHITE BLOOD COUNT 5.33 K/uL (4.8-10.8)
[2017-03-29 06:54] LABS: BUN/CREATININE RATIO 14.1 (10-20); CALCIUM 8.4 mg/dl (8.5-10.1); CREATININE 1.6 mg/dl (0.60-1.20); MAGNESIUM 1.9 mg/dl (1.8-2.4)
[2017-03-29] MEDS: INSULIN ASPART 100 UNITS/ML 3 ML PEN SC SCH ×4 (08:03→21:38)
--- NOTE | 2017-03-29 08:10 | DIAGNOSTIC IMAGING REPORT ---
CHEST ONE VIEW PORTABLE HISTORY: Congestive heart failure. Short of breath. COMPARISON: Chest 03/28/2017. FINDINGS: Improvement in the mild interstitial pulmonary edema. Trace bilateral pleural effusions and mild cardiomegaly persist. No new focal lung consolidations. No pneumothorax. IMPRESSION: Slight improvement in the mild interstitial pulmonary edema. Electronically signed by: Ryland Randolph M.D. 03/29/2017 8:08 AM Dictated Date/Time: 03/29/2017 8:08 AM
[2017-03-29] MEDS ORDERED: POTASSIUM CHLORIDE 20 MEQ TABCR PO ONE (08:30)
[2017-03-29] MEDS ORDERED: FUROSEMIDE INJ 60 MG in SYRINGE 0 ML IV ONE (08:30)
[2017-03-29] MEDS: CETIRIZINE HCL 10 MG TAB PO SCH (08:30)
[2017-03-29] MEDS: ALLOPURINOL 300 MG TAB PO SCH (08:30)
[2017-03-29] MEDS: CIPROFLOXACIN 500 MG TAB PO SCH ×2 (08:30→21:37)
[2017-03-29] MEDS: RIVAROXABAN 20 MG TAB PO SCH (08:31)
[2017-03-29] MEDS: POLYETHYLENE (MIRALAX) 17 GM PACK PO SCH (08:31)
[2017-03-29] MEDS: TRAMADOL HCL 50 MG TAB PO PRN ×2 (08:50→21:45)
--- NOTE | 2017-03-29 12:56 | Progress Note ---
Progress Note Date of Service Mar 29, 2017. Progress Note 76-year-old female admitted with * sepsis in the setting of urinary tract infection * Left pyelonephritis * Blood cultures and urine culture grew Escherichia coli * Acute superimposed on chronic renal failure * Type 2 diabetes mellitus * Arterial hypertension * Osteoarthritis Patient was admitted. Cultures were done. Initially she was started on Unasyn. Escherichia coli was resistant to Unasyn. She was switched to IV ciprofloxacin. She did not have any recurrent fever. Her WBC count normalized. Her renal function improved with hydration. Yesterday I was ready to discharge her home on oral ciprofloxacin. When I examined her she was in atrial fibrillation with rapid ventricular response. She was transferred to PCU with telemetry. Her metoprolol was discontinued. She was started on sotalol. Also started on anticoagulations with Xarelto. She also had mild congestive heart failure and she was given IV Lasix. This time she remains in atrial fibrillation. Her ventricular response does increase significantly when she is up and around and goes to the bathroom. She is tolerating her sotalol. She denied any headache or dizziness or lightheadedness. Denies any chest pain. She does get dyspneic with activity. No abdominal pain no nausea no vomiting. No problem with her bowel movements. No problem urinating. Her echocardiogram showed an ejection fraction between 50 and 55%. There was a suspicion of hypokinetic anteroseptal. She had aortic sclerosis without stenosis. Moderate tricuspid regurgitation. EXAMINATION: GENERAL : Well developed. Well nourished. No acute distress. VITAL SIGNS : Blood Pressure : 126/82, pulse 117, respirations 16, temperature 36.7, oxygen saturation 96% on room air. SKIN : Warm and dry. No rash. HEENT :No mucosal abnormalities NECK : Supple. No adenopathy. No thyromegaly. No JVD. Normal carotid pulses. No carotid bruit. HEART: Irregular heart sounds consistent with atrial fibrillation. 2/6 systolic murmur. No rub or gallop. LUNGS: decreased breath sounds. No wheezing. Minimal basilar rales ABDOMEN: Soft nontender. No organomegaly or masses. BACK: No spine or CVA tenderness. EXTREMITIES : minimal edema. No clubbing no cyanosis. Osteoarthritic changes LABORATORY TESTS: WBC count 5330, hemoglobin 9.7, hematocrit 29.1, platelet count 157,000. Sodium 137, potassium 4.0, chloride 103, CO2 29, BUN 23, creatinine 1.6, glucose 141, calcium 8.4, magnesium 1.9. ASSESSMENT: * new onset atrial fibrillation with rapid ventricular response * Sepsis in the setting of urinary tract infection * Urinary tract infection * Acute and chronic renal insufficiency * Type 2 diabetes mellitus * Arterial hypertension * Osteoarthritis PLAN: * electrocardiogram did not show any evidence of QT changes * Continuing the same medications * Additional IV Lasix * One dose of potassium chloride * Will add diltiazem 60 mg every 8 hours
[2017-03-29] MEDS: DILTIAZEM HCL 60 MG TAB PO SCH ×2 (14:20→21:37)
[2017-03-30] VITALS (7 sets, daily range): BP systolic 93–105; BP diastolic 48–71; PULSE 54–112; TEMP 36.4–37; O2SAT 93–97
[2017-03-30] MEDS: SOTALOL HCL 80 MG TAB PO SCH (00:26)
[2017-03-30] MEDS: ACETAMINOPHEN 325 MG TAB PO PRN (00:30)
[2017-03-30 06:59] LABS: BASO % 0.6 %; BASO ABS # 0.03 K/uL (0-0.2); COMPLETE YES; EOS % 5.2 %; IG% 1.7 %; LYMPH % 40.5 %; LYMPH ABS # 2.09 K/uL (1.2-3.4); MEAN CORPUSCULAR HEMOGLOBIN 32.2 pg (25-34); MEAN CORPUSCULAR HGB CONC 32.2 g/dl (32-36); MEAN PLATELET VOLUME 10.8 fL (7.4-10.4); MONO % 14.1 %; NEUT % 37.9 %; PLATELET COUNT 181 K/uL (130-400); WHITE BLOOD COUNT 5.16 K/uL (4.8-10.8)
[2017-03-30 07:35] LABS: BUN/CREATININE RATIO 14.2 (10-20); CALCIUM 8.7 mg/dl (8.5-10.1); CREATININE 1.71 mg/dl (0.60-1.20); POTASSIUM 4.5 mmol/L (3.5-5.1)
[2017-03-30] MEDS: CETIRIZINE HCL 10 MG TAB PO SCH (08:24)
[2017-03-30] MEDS: POLYETHYLENE (MIRALAX) 17 GM PACK PO SCH (08:24)
[2017-03-30] MEDS: ALLOPURINOL 300 MG TAB PO SCH (08:24)
[2017-03-30] MEDS: CIPROFLOXACIN 500 MG TAB PO SCH ×2 (08:24→20:37)
[2017-03-30] MEDS: RIVAROXABAN 20 MG TAB PO SCH (08:24)
[2017-03-30] MEDS: INSULIN ASPART 100 UNITS/ML 3 ML PEN SC SCH ×4 (08:27→20:50)
[2017-03-30] MEDS: TRAMADOL HCL 50 MG TAB PO PRN ×4 (08:52→22:30)
[2017-03-30] MEDS: DILTIAZEM HCL 60 MG TAB PO SCH ×2 (08:54→14:36)
[2017-03-30] MEDS ORDERED: SOTALOL HCL 80 MG TAB PO SCH (10:00)
[2017-03-30] MEDS: METOPROLOL TARTRATE 50 MG TAB PO SCH ×2 (10:30→20:37)
--- NOTE | 2017-03-30 16:47 | Cardiology Consultation ---
Cardiology Consultation Date of Consultation: Mar 30, 2017. Requesting Physician: Srikanth Reason for Consultation: Atrial fibrillation Pt evaluation today including: conversation w/ patient, conversation w/ family , physical exam, chart review, lab review, review of studies, review of inpatient medication list, conversation w/ attending History of Present Illness Patient is a 76-year-old woman without a known history of cardiovascular disease who was admitted for pyelonephritis and bacteremia. Patient's initial presentation involve the development of flank pain and fevers. She was treated with antibiotic therapy and her symptoms have essentially resolved. During her hospitalization she was noted to have a irregular pulse and tachycardia. EKG confirmed the development of atrial fibrillation and she was transferred to the telemetry floor. The patient was started on sotalol as an alternative to her metoprolol and more recently diltiazem as well in an attempt to control her ventricular rate. Currently the patient claims to be feeling well. She states she is been ambulating around her room and could ambulate farther but is restricted by the size of her environment. She denies any exertional dyspnea currently. She has not had significant dizziness or lightheadedness. She is not aware of any palpitations or irregularity in her heartbeat. She denies symptoms of chest discomfort or chest pressure. She has no orthopnea or paroxysmal nocturnal dyspnea. The flank pain which was her presenting symptom has resolved. She takes her blood pressure and pulse at home periodically. She states that generally speaking her heart rate is in the 60 to 70 beats per minute range. She cannot recall any time where her pulse was over 100. Past Medical/Surgical History Diabetes mellitus type 2 Hypertension Breast cancer Endometrial cancer Nephrolithiasis Spinal stenosis Cataracts Past surgical history: Bilateral cataract removal Lacrimal duct surgery Cholecystectomy Partial mastectomy on the left Total hysterectomy and salpingo-oophorectomy Family History Patient reports no known family medical history. No premature coronary disease Social History Smoking Status: Never Smoker History of Alcohol Use: No Currently lives at home with her boyfriend All Other Systems: Reviewed and Negative Allergies Coded Allergies: Hydrocodone (Verified Allergy, Mild, UNKNOWN "HAPPENED LONG TIME AGO", 03/23/17) Phenol (Verified Allergy, Unknown, LOCALIZED RASH AT INJECTION SITE, ) Protamine (Verified Allergy, Unknown, LOCALIZED RASH AT INJECTION SITE, ) Sodium Chloride (Verified Allergy, Unknown, LOCALIZED RASH AT INJECTION SITE, 03/23/17) Sodium Phosphate (Verified Allergy, Unknown, LOCALIZED RASH AT INJECTION SITE, 03/23/17) Zinc (Verified Allergy, Unknown, LOCALIZED RASH AT INJECTION SITE, 03/23/17 ) Hydroxychloroquine (Verified Adverse Reaction, Unknown, "BURPED FOR DAYS AND TORE MY STOMACH UP", 03/23/17) Medications Current Inpatient Medications Medications (Trade) Dose Ordered Sig/Neil Route Start Time Stop Time Status Last Admin Dose Admin Acetaminophen (Tylenol Tab) 650 mg Q4H PRN PO 03/23/17 20:00 04/22/17 19:59 03/30/17 00:30 650 MG Allopurinol (Zyloprim Tab) 300 mg QAM PO 03/24/17 09:00 04/23/17 08:59 03/30/17 08:24 300 MG Insulin Aspart (novoLOG ASPART) SLIDING SCALE G... ACHS SC 03/24/17 06:30 04/23/17 06:29 03/30/17 08:27 5 UNITS Ondansetron HCl 8 mg/Dextrose 54 ml @ 200 mls/hr Q6H PRN IV 03/23/17 20:00 04/22/17 19:59 03/24/17 21:04 200 MLS/HR Magnesium Hydroxide (Milk Of Magnesia Susp) 30 ml Q6H PRN PO 03/23/17 20:15 04/22/17 20:14 Glucose (Glucose 40% Gel) 15-30 GRAMS 15 GRAMS... UD PRN PO 03/23/17 23:00 04/22/17 22:59 Glucose (Glucose Chew Tab) 4-8 Tablets 4 Tabl... UD PRN PO 03/23/17 23:00 04/22/17 22:59 Dextrose (Dextrose 50% 50ML Syringe) 25-50ML OF 50% DW IV FOR... UD PRN IV 03/23/17 23:00 04/22/17 22:59 Glucagon (Glucagon Inj) 1 mg UD PRN SQ 03/23/17 23:00 04/22/17 22:59 Morphine Sulfate (MoRPHine SULFATE INJ) 3 mg Q3H PRN IV 03/24/17 08:00 04/07/17 07:59 03/29/17 02:15 3 MG Cetirizine HCl (zyrTEC TAB) 10 mg QAM PO 03/25/17 09:00 04/24/17 08:59 03/30/17 08:24 10 MG Tramadol HCl (Ultram Tab) 100 mg Q4H PRN PO 03/25/17 08:00 04/23/17 07:59 03/30/17 08:52 100 MG Polyethylene (Miralax Powder Packet) 17 gm DAILY PO 03/25/17 09:00 04/24/17 08:59 03/30/17 08:24 17 GM Metoprolol Tartrate (Lopressor Iv) 5 mg Q6H PRN IV 03/28/17 08:30 04/27/17 08:29 03/28/17 22:23 5 MG Rivaroxaban (Xarelto Tab) 20 mg DAILY PO 03/28/17 09:00 04/27/17 08:59 03/30/17 08:24 20 MG Ciprofloxacin (Cipro Tab) 500 mg BID PO 03/28/17 09:00 04/04/17 20:59 03/30/17 08:24 500 MG Diltiazem HCl (Cardizem Tab) 90 mg TID PO 03/30/17 09:00 04/28/17 13:59 03/30/17 08:54 90 MG Metoprolol Tartrate (Lopressor Tab) 50 mg BID PO 03/30/17 09:45 04/29/17 09:44 Physical Exam Vital Signs Past 12 Hours Date Time Temp Pulse Resp B/P (MAP) Pulse Ox O2 Delivery O2 Flow Rate FiO2 03/30/17 08:00 Room Air 03/30/17 07:40 36.9 93 18 102/71 (81) 94 Room Air 03/30/17 04:11 36.9 106 20 93/60 (71) 97 Room Air 03/30/17 04:00 Room Air 03/30/17 00:21 37.0 102 20 102/65 (77) 97 Room Air 03/30/17 00:00 Room Air Data Laboratory Results: Last 24 Hours Test 03/29/17 11:20 03/29/17 16:32 03/29/17 21:00 03/30/17 06:38 Bedside Glucose 173 mg/dl 126 mg/dl 155 mg/dl 154 mg/dl Test 03/30/17 06:47 White Blood Count 5.16 K/uL Red Blood Count 3.20 M/uL Hemoglobin 10.3 g/dL Hematocrit 32.0 % Mean Corpuscular Volume 100.0 fL Mean Corpuscular Hemoglobin 32.2 pg Mean Corpuscular Hemoglobin Concent 32.2 g/dl Platelet Count 181 K/uL Mean Platelet Volume 10.8 fL Neutrophils (%) (Auto) 37.9 % Lymphocytes (%) (Auto) 40.5 % Monocytes (%) (Auto) 14.1 % Eosinophils (%) (Auto) 5.2 % Basophils (%) (Auto) 0.6 % Neutrophils # (Auto) 1.95 K/uL Lymphocytes # (Auto) 2.09 K/uL Monocytes # (Auto) 0.73 K/uL Eosinophils # (Auto) 0.27 K/uL Basophils # (Auto) 0.03 K/uL RDW Standard Deviation 59.3 fL RDW Coefficient of Variation 16.2 % Immature Granulocyte % (Auto) 1.7 % Immature Granulocyte # (Auto) 0.09 K/uL Sodium Level 137 mmol/L Potassium Level 4.5 mmol/L Chloride Level 101 mmol/L Carbon Dioxide Level 30 mmol/L Anion Gap 6.0 mmol/L Blood Urea Nitrogen 24 mg/dl Creatinine 1.71 mg/dl Est Creatinine Clear Calc Drug Dose 31.6 ml/min Estimated GFR () 33.6 Estimated GFR (Non- 29.0 BUN/Creatinine Ratio 14.2 Random Glucose 161 mg/dl Calcium Level 8.7 mg/dl Magnesium Level 2.0 mg/dl Imaging: Echocardiogram revealed overall preserved LV systolic function. Aortic sclerosis. Pulmonary hypertension and diastolic dysfunction EKG: This demonstrated atrial fibrillation, rapid ventricular response and prolonged QT interval Telemetry reviewed: Atrial fibrillation with rapid ventricular response Assessment & Plan 1. Atrial fibrillation: The exact duration of the patient's atrial fibrillation is unknown. EKG performed on the documented the arrhythmia, but she may have had some atrial fibrillation leading up to that evaluation. She did report feeling somewhat tired over the past few days and it is unclear whether this represents a manifestation of her atrial fibrillation, poor sleep in the hospital or recovery from her infection. She is not aware of any rapid heartbeats or palpitations. She appears to be ambulating around the hospital without limiting symptoms of dyspnea or chest discomfort. She is not appear to have had a significant reduction in her ventricular rate despite aggressive medical therapy. I do not believe that she has had other documented episodes of atrial fibrillation or a history consistent with other episodes of atrial fibrillation. This current episode may be related to her acute illness. She has been started on anticoagulation. At this point I think would be prudent to attempt cardioversion. I think this is a good option for 2 reasons. This would obviate the need for more aggressive rate control in the acute setting and also is likely to have a lasting effect if this episode is related to her acute illness. I think she is at risk of toxicity from sotalol and will discontinue this today. I will return her to her metoprolol and reduce her dose of diltiazem in anticipation of cardioversion tomorrow. As the exact duration of her atrial fibrillation is unknown, I think a CORA prior to cardioversion would be warranted. She certainly has risk factors for thromboembolic phenomenon and is appropriately on systemic anticoagulation. However, her renal function is such that the best dose of Xarelto would be 15 milligrams daily. I discussed this with the pharmacist this and they have made the dose adjustment. 2. Pulmonary hypertension: She had elevated pulmonary pressures estimated on her echocardiogram. This could be result of some diastolic dysfunction and atrial fibrillation. She did undergo mild diuresis yesterday. Overall her breathing seems to be normal and her pulmonary exam is unremarkable.
--- NOTE | 2017-03-30 18:26 | Progress Note ---
Progress Note Date of Service Mar 30, 2017. Progress Note 76-year-old female with * She was admitted with sepsis in the setting of urinary tract infection. Both blood cultures and her urine culture grew Escherichia coli. Initially she was started on Unasyn. The Escherichia coli was not sensitive to this antibiotic. So she was switched to ciprofloxacin. She did quite well. She remained afebrile. Her WBC count normalized. She was ready to be discharged home on Thursday. Unfortunately she was found to be in atrial fibrillation with rapid ventricular response * New onset of atrial fibrillation with rapid ventricular response. Discovered to Thursday morning. Patient was not aware of any rapid or irregular heartbeat. She has no prior documented history. She was transferred to the progressive care unit. At that time she was already on metoprolol tartrate 50 mg twice a day. Her metoprolol tartrate was discontinued. She was started on sotalol 80 mg every 8 hours. She continued to be in atrial fibrillation. Subsequently Cardizem was added to her regimen. First as 60 mg 3 times a day then the dose was increased to 90 mg 3 times a day. As of this morning she was still in atrial fibrillation with a ventricular response in the 100-110 range. She was still asymptomatic. * Congestive heart failure. Presented at that time she was in atrial fibrillation with rapid ventricular response. She received IV Lasix. She diuresed well. Her congestive heart failure resolved. Her echocardiogram showed left ventricular ejection fraction of between 50-55%. She had what was described as suspected hypokinesis in the anteroseptal area. * Type 2 diabetes mellitus. Her hemoglobin A1c was 7.4% * Arterial hypertension * Osteoarthritis As noted this morning patient did well without any complaints except feeling tired. She was still in atrial fibrillation with rapid ventricular response. She was seen in cardiology consultation by Dr. Alejandro Lyn. He recommended cardioversion. He was going to do a transesophageal echocardiogram prior to the cardioversion tomorrow. For this reason he discontinued her sotalol. He restarted her metoprolol. Keeping in mind that she had onset of atrial fibrillation while she was on metoprolol 50 mg twice a day. She was also given IV metoprolol tartrate at the time she presented with new diagnosis and did not really have much effect as far as slowing her rate down. Patient did convert to a sinus rhythm this afternoon around 3:33 PM. She is now in sinus bradycardia with a rate in the 50s. At this point she is resting comfortably. No headache no dizziness no lightheadedness. No chest pain no shortness of breath. No abdominal pain no nausea or vomiting. No ankle edema. EXAMINATION : GENERAL: Well-developed in no distress VITAL SIGNS: Her last blood pressure is 99/62, pulse 55, respiration 18, temperature 36.4, oxygen saturation 95% on room air. SKIN: Warm and dry. No rash HEENT: No mucosal abnormality NECK: Supple. Nontender. No lymph node or thyroid enlargement. No JVD HEART: Regular heart sounds with a 1/6 systolic murmur LUNGS: Clear ABDOMEN: Abdomen is soft nontender. BACK: No spinal tenderness EXTREMITIES: No edema clubbing or cyanosis LABORATORY TESTS : WBC count 5160, hemoglobin 10.3, hematocrit 32%, platelet count 181,000. Sodium 137, potassium 4.5, chloride 101, CO2 30, BUN/creatinine 24, creatinine 1.71, glucose 161, calcium 8.7, magnesium 2.0. ASSESSMENT : * Sepsis in the setting of urinary tract infection * New onset of atrial fibrillation with rapid ventricular response * Type 2 diabetes mellitus * Arterial hypertension * Osteoarthritis PLAN : * As noted patient converted spontaneously to sinus bradycardia. Obviously the regimen using sotalol and Cardizem was effective in promoting the conversion. She is now back on metoprolol tartrate 50 mg twice a day. Keeping in mind that she was on the same medication at the time she presented with her atrial fibrillation and she did not really respond to IV metoprolol tartrate. She is also on Cardizem. * I spoke with Dr. Lny this afternoon. We will go ahead and cancel the CORA for tomorrow. Also cancel the cardioversion. Hopefully she will stay in a sinus rhythm * Because of the finding on her echocardiogram with hypokinesis she is scheduled for Lexiscan for tomorrow and will maintain that as scheduled * She is on Xarelto. Dr. Lyn reduce the dose to 15 mg daily * So the plan at this time is to continue monitoring. Continue the metoprolol tartrate. Decrease the Cardizem dose to 30 mg 3 times a day because of the bradycardia. Continue the Xarelto at 15 mg daily. Proceed with a Lexiscan as scheduled tomorrow.
[2017-03-30] MEDS: DILTIAZEM HCL 30 MG TAB PO SCH (20:38)
[2017-03-30] MEDS: MoRPHine SULFATE 4 MG/ML 1 ML CARP\\VIAL IV PRN (22:31)
[2017-03-31] MEDS: MoRPHine SULFATE 4 MG/ML 1 ML CARP\\VIAL IV PRN ×3 (01:34→18:46)
[2017-03-31 03:43] VITALS: BP 103/62; PULSE 63; TEMP 36.8; O2SAT 94
[2017-03-31] MEDS: TRAMADOL HCL 50 MG TAB PO PRN ×4 (03:46→21:00)
[2017-03-31 06:02] LABS: BASO % 0.4 %; BASO ABS # 0.02 K/uL (0-0.2); COMPLETE YES; EOS % 4.4 %; HEMATOCRIT 27.2 % (37-47); IG% 1.3 %; LYMPH % 28.7 %; LYMPH ABS # 1.56 K/uL (1.2-3.4); MEAN CELL VOLUME 99.6 fL (80-100); MEAN CORPUSCULAR HGB CONC 33.1 g/dl (32-36); MEAN PLATELET VOLUME 11.4 fL (7.4-10.4); NEUT % 53.2 %; PLATELET COUNT 174 K/uL (130-400); RED BLOOD COUNT 2.73 M/uL (4.2-5.4); WHITE BLOOD COUNT 5.43 K/uL (4.8-10.8)
[2017-03-31 06:33] LABS: BUN/CREATININE RATIO 16.7 (10-20); CALCIUM 8.2 mg/dl (8.5-10.1); CREATININE 1.6 mg/dl (0.60-1.20)
[2017-03-31] MEDS: ALLOPURINOL 300 MG TAB PO SCH (07:39)
[2017-03-31] MEDS: DILTIAZEM HCL 30 MG TAB PO SCH ×3 (07:39→21:00)
[2017-03-31] MEDS: CETIRIZINE HCL 10 MG TAB PO SCH (07:39)
[2017-03-31] MEDS: CIPROFLOXACIN 500 MG TAB PO SCH ×2 (07:40→21:01)
[2017-03-31] MEDS: METOPROLOL TARTRATE 50 MG TAB PO SCH ×2 (07:40→21:01)
[2017-03-31] MEDS: POLYETHYLENE (MIRALAX) 17 GM PACK PO SCH (07:41)
[2017-03-31] MEDS: INSULIN ASPART 100 UNITS/ML 3 ML PEN SC SCH ×4 (07:43→21:00)
[2017-03-31 08:05] VITALS: BP 105/61; PULSE 58; TEMP 36.8; O2SAT 92
[2017-03-31] MEDS ORDERED: REGADENOSON 0.4 MG/5 ML SYR ONE (08:39)
[2017-03-31] MEDS: RIVAROXABAN TAB 15 MG TAB PO SCH (09:24)
[2017-03-31 11:58] VITALS: BP 113/60; PULSE 55; TEMP 36.6; O2SAT 91
--- NOTE | 2017-03-31 14:27 | MYOCARDIAL PERFUSION SCAN ---
ONE-DAY NUCLEAR MEDICINE TECHNETIUM-99M MYOCARDIAL PERFUSION SCAN CLINICAL HISTORY: The patient recently experienced a chest pain syndrome and an echocardiogram suggested a wall motion abnormality. COMPARISON: None. TECHNIQUE: For the stress portion of the study, 31.3 mCi of Technetium-99m Cardiolite IV was injected at 9:55 a.m. on 03/31/2017. Thirty minutes following the injection, imaging of the heart was performed in multiple projection. For the rest portion of the study, 10.2 mCi of Technetium-99m Cardiolite was injected IV at 8:05 a.m. One hour following the injection, imaging of the heart was performed in the same projections. For the stress portion of the study, 0.4 mg of Lexiscan was injected intravenously as per protocol. The patient did not experience chest discomfort. There were no EKG changes. Following the study, patient was hemodynamically stable without complaints. FINDINGS: The short axis, vertical long axis, and horizontal long axis images were reviewed in detail. There is normal tracer uptake at both stress and rest. This excludes a prior myocardial infarction and evidence of stress induced myocardial ischemia. Left ventricle demonstrates hyperdynamic systolic function with an ejection fraction of greater than 70%. There are no wall motion abnormalities. IMPRESSION: 1. No scintigraphic evidence of a prior myocardial infarction or stress induced myocardial ischemia. 2. No Lexiscan induced chest pain. 3. No Lexiscan induced EKG changes. 4. Hyperdynamic left ventricular systolic function with an ejection fraction of greater than 70%. There are no wall motion abnormalities.
[2017-03-31 15:27] VITALS: BP 133/78; PULSE 103; TEMP 36.7; O2SAT 97
--- NOTE | 2017-03-31 15:39 | Cardiology Follow-Up ---
Subjective Date of Service: Mar 31, 2017. Pt evaluation today including: conversation w/ patient, conversation w/ family , physical exam, chart review, lab review, review of inpatient medication list History of Present Illness The patient's main complaint today is neck stiffness. She attributes this to the bed. She is anxious to go home. She has been ambulatory around the room without dizziness or significant dyspnea. She is not aware of any palpitations currently. She is not complaining of chest pain. Social History Smoking Status: Never Smoker History of Alcohol Use: No Objective Vital Signs Past 12 Hours Date Time Temp Pulse Resp B/P (MAP) Pulse Ox O2 Delivery O2 Flow Rate FiO2 03/31/17 12:00 Room Air 03/31/17 11:58 36.6 55 18 113/60 (77) 91 Room Air 03/31/17 08:05 36.8 58 16 105/61 (76) 92 Room Air 03/31/17 08:00 Room Air 03/31/17 04:00 Room Air 03/31/17 03:43 36.8 63 18 103/62 (76) 94 Room Air Last Recorded Weight-Kilograms: 105.000 Intake & Output 8-Hour Column 03/31/17 04/01/17 04/01/17 16:00 00:00 08:00 Intake Total 240 ml Output Total 125 ml Balance 115 ml 24-Hour Column 04/01/17 08:00 Intake Total 240 ml Output Total 125 ml Balance 115 ml Physical Exam She is alert and oriented x3. Mood affect appear normal. She answered all questions appropriately. HEENT: Sclerae are anicteric. Pupils are equal and reactive to light and accommodation. Extraocular movements were intact. Neuro: Cranial nerves intact Neck: Examination of the submandibular region did not reveal any significant lymphadenopathy. Carotids are palpable bilaterally and free of bruits on auscultation. There was no evidence of jugular venous distention. The thyroid was not enlarged. Lungs: Lungs are clear to auscultation bilaterally. There are no rales wheezes or rhonchi. She has normal respiratory effort without use of accessory muscles. There is normal pulmonary excursion. Cardiac: The rhythm was regular. S1 and S2 were normal. There are no murmurs on examination. The PMI was not markedly displaced on palpation. Abdomen: The abdomen was soft and nontender. Extremities: Patient has bilateral radial pulses that are equal in intensity. There is no evidence cyanosis or clubbing. There was no evidence of significant peripheral edema bilaterally. Skin: There are no rashes noted on examination today. Data Laboratory Results: Last 24 Hours Test 03/30/17 16:04 03/30/17 20:45 03/31/17 05:48 03/31/17 06:31 Bedside Glucose 132 mg/dl 151 mg/dl 146 mg/dl White Blood Count 5.43 K/uL Red Blood Count 2.73 M/uL Hemoglobin 9.0 g/dL Hematocrit 27.2 % Mean Corpuscular Volume 99.6 fL Mean Corpuscular Hemoglobin 33.0 pg Mean Corpuscular Hemoglobin Concent 33.1 g/dl Platelet Count 174 K/uL Mean Platelet Volume 11.4 fL Neutrophils (%) (Auto) 53.2 % Lymphocytes (%) (Auto) 28.7 % Monocytes (%) (Auto) 12.0 % Eosinophils (%) (Auto) 4.4 % Basophils (%) (Auto) 0.4 % Neutrophils # (Auto) 2.89 K/uL Lymphocytes # (Auto) 1.56 K/uL Monocytes # (Auto) 0.65 K/uL Eosinophils # (Auto) 0.24 K/uL Basophils # (Auto) 0.02 K/uL RDW Standard Deviation 59.8 fL RDW Coefficient of Variation 16.6 % Immature Granulocyte % (Auto) 1.3 % Immature Granulocyte # (Auto) 0.07 K/uL Sodium Level 135 mmol/L Potassium Level 4.0 mmol/L Chloride Level 102 mmol/L Carbon Dioxide Level 26 mmol/L Anion Gap 7.0 mmol/L Blood Urea Nitrogen 27 mg/dl Creatinine 1.60 mg/dl Est Creatinine Clear Calc Drug Dose 35.1 ml/min Estimated GFR () 36.4 Estimated GFR (Non- 31.4 BUN/Creatinine Ratio 16.7 Random Glucose 147 mg/dl Calcium Level 8.2 mg/dl Magnesium Level 2.0 mg/dl Test 03/31/17 11:20 Bedside Glucose 192 mg/dl EKG: Sinus bradycardia with long QT interval Telemetry reviewed: Sinus rhythm with sinus bradycardia Assessment and Plan 1. Atrial fibrillation: The patient converted spontaneously to sinus rhythm yesterday. Once again, it is unclear if this episode was related to her acute illness. I think would be reasonable at this point to continue on her home dose of metoprolol perhaps adding 120 mg of extended release diltiazem daily. She appears to be tolerating the extra diltiazem at this point. She is not complaining of dizziness or exercise intolerance. This would up attenuate any higher rates she has additional episodes of atrial fibrillation as an outpatient. I also think she should stay on Xarelto for the time being. As this event becomes more remote and we have not seen any recurrence of her atrial fibrillation we could entertain the possibility of stopping Xarelto. 2. Abnormal echocardiogram: The patient underwent perfusion imaging today as result of wall motion abnormalities described on her echocardiogram. The procedure itself has been completed but the results are still pending. If there is no evidence of ischemia, no additional therapy is required outside of standard risk factor modification according to published guidelines. If she has a very small area of ischemia she could continue on her current medications and her symptoms can be monitored as an outpatient. For large areas of ischemia additional evaluation could be entertained including the possibility of coronary angiography.
[2017-03-31 18:52] VITALS: BP 118/72; PULSE 62; TEMP 36.7; O2SAT 97
--- NOTE | 2017-03-31 20:46 | Progress Note ---
Progress Note Date of Service Mar 31, 2017. Progress Note 76-year-old female admitted with sepsis in the setting of urinary tract infection. The infection was secondary to Escherichia coli. She was treated with IV ciprofloxacin then switched to oral ciprofloxacin and that's what she is continuing right now. 3 days ago she presented with a new onset of atrial fibrillation with rapid ventricular response. Initially she was treated with sotalol orally. Subsequently Cardizem was added. She was seen in cardiology consultation by Dr. Alejandro Lyn. The plan was to do a CORA and a cardioversion. Her sotalol was discontinued and she was started back on her metoprolol tartrate. She was continued on the Cardizem. she was also started on Xarelto. Yesterday in midafternoon she converted spontaneously to sinus rhythm. She was in sinus bradycardia. On her echocardiogram there was an indication of hypokinesis. A Lexiscan was ordered and it was done today.there was no evidence of any ischemia. No evidence of a new wall motion abnormality. She had normal left ventricular ejection fraction. EXAMINATION: GENERAL : Well developed. Well nourished. No acute distress. VITAL SIGNS : Blood Pressure : 113/60, pulse 55, respiration 18, temperature 36.6, oxygen saturation 91% on room air. SKIN : Warm and dry. No rash. HEENT :No mucosal abnormality NECK : Supple. No adenopathy. No thyromegaly. No JVD. HEART: Regular heart tones with 1/6 systolic murmur. No rub no gallop. LUNGS: Clear. Normal breath sounds. ABDOMEN: Soft nontender. No organomegaly or masses. EXTREMITIES : No edema clubbing or cyanosis. No joint or muscle tenderness. LABORATORY TESTS: WBC count 5430, hemoglobin 9, hematocrit 27.2, platelet count 174,000. Sodium 135, potassium 4.0, chloride 102, CO2 26, BUN 27, creatinine 1.6, glucose 147, calcium 8.2, magnesium 2.0. As noted her Lexiscan was normal ASSESSMENT: * sepsis in the setting of urinary tract infection * Left pyelonephritis * New onset of atrial fibrillation with rapid ventricular response * Congestive heart failure * Chronic kidney disease * Type 2 diabetes mellitus * Osteoarthritis PLAN: * continuing her medications * The intent is to switch her to Cardizem CD tomorrow 120 mg daily * Continue her metoprolol tartrate 50 mg twice a day * Continue Xarelto * This evening I walked with her around the hallway. She walked on her own using her walker. She did very well. I also watch her go up a flight of steps and come down without any problem as she was holding on the railings on both sides of the steps she did not have any difficulty. * If she remains in sinus rhythm and she remained asymptomatic the intent is to send her home tomorrow morning.
[2017-03-31 23:32] VITALS: BP 101/60; PULSE 63; TEMP 36.7; O2SAT 96
[2017-04-01 03:52] VITALS: BP 115/66; PULSE 64; TEMP 36.7; O2SAT 100
[2017-04-01] MEDS: TRAMADOL HCL 50 MG TAB PO PRN ×2 (05:02→09:25)
[2017-04-01] MEDS: ACETAMINOPHEN 325 MG TAB PO PRN (06:05)
[2017-04-01] MEDS: METOPROLOL TARTRATE 50 MG TAB PO SCH (07:34)
[2017-04-01] MEDS: CIPROFLOXACIN 500 MG TAB PO SCH (07:34)
[2017-04-01] MEDS: CETIRIZINE HCL 10 MG TAB PO SCH (07:35)
[2017-04-01] MEDS: POLYETHYLENE (MIRALAX) 17 GM PACK PO SCH (07:35)
[2017-04-01] MEDS: RIVAROXABAN TAB 15 MG TAB PO SCH (07:35)
[2017-04-01] MEDS: ALLOPURINOL 300 MG TAB PO SCH (07:35)
[2017-04-01] MEDS: INSULIN ASPART 100 UNITS/ML 3 ML PEN SC SCH (07:43)
[2017-04-01 07:45] VITALS: BP 144/78; PULSE 59; TEMP 36.5; O2SAT 97
[2017-04-01] MEDS ORDERED: XRL15 PO (08:07)
[2017-04-01] MEDS ORDERED: DILT120C50 PO (08:07)
[2017-04-01] MEDS ORDERED: CPR500 PO (08:07)
--- NOTE | 2017-04-01 08:11 | Discharge Instructions ---
Discharge Instructions Date of Service Apr 01, 2017. Admission Reason for Admission: SEPSIS URINARY TRACT INFECTION LEFT PYELONEPHRITIS ATRIAL FIBRILLATION WITH RAPID VENTRICULAR RESPONSE TYPE 2 DIABETES MELLITUS OSTEOARTHRITIS Discharge Discharge Diagnosis / Problem: SEPSIS, URINARY TRACT INFECTION, ATRIAL FIBRILLATION Discharge Goals Goal(s): Decrease discomfort, Improve function, Increase independence, Improve disease control, Improve nutritional status Activity Recommendations Activity Limitations: resume your previous activity . Instructions / Follow-Up Instructions / Follow-Up DR GENAO IN ONE WEEK Current Hospital Diet Patient's current hospital diet: Diabetes Type 2 Diet Discharge Diet Recommended Diet: Diabetes Type 2 Diet Pending Studies Studies pending at discharge: no Laboratory Results Hemoglobin A1c Test 03/24/17 06:29 Range/Units Estimated Average Glucose 166 mg/dl Hemoglobin A1c 7.4 H 4.5-5.6 % Lipid Panel Test 02/04/17 08:40 Range/Units Triglycerides Level 120 0-150 mg/dl Cholesterol Level 128 0-200 mg/dl HDL Cholesterol 43 mg/dl LDL Cholesterol Direct 76 mg/dl Cholesterol/HDL Ratio 3.0 LDL Cholesterol, Calculated mg/dl Medical Emergencies . Who to Call and When: Medical Emergencies: If at any time you feel your situation is an emergency, please call 911 immediately. . Non-Emergent Contact Non-Emergency issues call your: Primary Care Provider . . "Provider Documentation" section prepared by Marito Genao. . VTE Core Measure Inpt VTE Proph given/why not?: Other Anticoagulation
[2017-04-01] MEDS ORDERED: DILTIAZEM HCL 120 MG CAPCR PO SCH (09:00)
[2017-04-01 09:56] VITALS: BP 144/78; PULSE 59; TEMP 36.5; O2SAT 97
--- NOTE | 2017-04-01 21:53 | Progress Note ---
Progress Note Date of Service Apr 01, 2017. Progress Note 76-year-old female with * sepsis in the setting of urinary tract infection secondary to Escherichia coli * left pyelonephritis * New onset of atrial fibrillation with rapid ventricular response * type 2 diabetes mellitus * Arterial hypertension * Osteoarthritis Her condition has improved. She has not had any recurrent fever. She converted to sinus rhythm after she was treated with sotalol and diltiazem. She had an echocardiogram and there was a question of wall motion abnormality and hypokinesis. A nuclear scan was done. There was no evidence of any ischemia. No evidence of any wall motion abnormalities. Left ventricular ejection fraction was normal. She denied any headache. No dizziness. No chest pain no shortness of breath. No abdominal pain no nausea no vomiting. Good appetite. She does have back pain joint pain related to her osteoarthritis. She has been ambulating using her walker without any problem. EXAMINATION GENERAL : Well developed. Well nourished. VITAL SIGNS : Blood Pressure : 144/78, pulse 59, respiration 20, temperature 36.5, oxygen saturation 97% on room air SKIN : Warm and dry. No rash. HEENT :Completely unremarkable NECK : Supple. No adenopathy. No thyromegaly. No JVD. she is complaining of pain in the posterior neck area along the trapezius muscles on both sides HEART: Regular heart tones with 1/6 systolic murmur. No rub no gallop. LUNGS: Clear. Normal breath sounds. ABDOMEN: Soft nontender. BACK: No spinal tenderness EXTREMITIES: No edema clubbing or cyanosis no acute arthritis ASSESSMENT: * Sepsis in the setting of urinary tract infection * Left pyelonephritis * New onset of atrial fibrillation with rapid ventricular response * Chronic kidney disease * Type 2 diabetes mellitus * Osteoarthritis PLAN: * She was switched to Cardizem CD 120 mg daily * Continuing her other medications * Discharge home today * Given ciprofloxacin 500 mg twice a day for 7 days * Followup in the office in one week
--- NOTE | 2017-04-12 14:15 | Discharge Summary ---
Discharge Summary Date of Service Apr 12, 2017. Discharge Summary ADMISSION DATE: 03/23/2017 DISCHARGE DATE: 04/01/2017 DISCHARGE DIAGNOSES: * sepsis * Urinary tract infection * Left pyelonephritis * New onset atrial fibrillation with rapid ventricular response * mild congestive heart failure * Type 2 diabetes mellitus * Osteoarthritis * Gout * History of nephrolithiasis * Anxiety DISCHARGE MEDICATIONS: * ciprofloxacin 500 mg twice a day for 7 days * diltiazem CD 120 mg daily * Xarelto 15 mg daily * Allopurinol 300 mg daily * Furosemide 40 mg twice a day * lotrimin 1% cream to apply as needed to affected area * hydrocortisone 1% cream to apply to affected area as needed * Lantus insulin 50 units in the morning and 20 units in the evening * Lisinopril 5 mg twice a day * Lorazepam 1 mg every 6 hours as needed for panic attacks * Metoprolol tartrate 50 mg twice a day * Potassium citrate 30 mg twice a day * Prednisone 10 mg daily when needed for arthritis and gout flare up as prescribed by rheumatology * AcipHex 20 mg daily * Tramadol 50 mg every 4-6 hours as needed for pain CONSULTATION * Dr. Alejandro Lyn in cardiology PROCEDURE * Nuclear cardiac scan showing no evidence of ischemia 76-year-old female admitted through the emergency room with urinary tract infection and suspected left pyelonephritis. Patient with multiple medical problems as noted above. Thursday night prior to her admission she woke up in the middle of the night and was having left-sided pain in her left abdomen and left back. She did not check her temperature. She felt nauseous. No vomiting. No change in her bowel habits. The following morning she was still having pain. She went for the day she had other appointments. She was feeling nauseous. She called the office and after known. She was having severe pain. We asked her to come to the emergency room for evaluation. Her laboratory data showed evidence of urinary tract infection. She was having pain in the left flank area suspicious for pyelonephritis. She does have history of nephrolithiasis. All cultures were done. She received one dose of IV ciprofloxacin in the emergency room. I saw the patient in the emergency room and she was admitted for further treatment. PAST MEDICAL HISTORY, SOCIAL HISTORY, FAMILY HISTORY: As noted on admission history and physical ALLERGIES: hydrocodone, it did cause increased heart rate. Also shortness of breath. ADMISSION MEDICATIONS: As noted on the home medication list PHYSICAL EXAMINATION AND LABORATORY TESTS ARE NOTED ON ADMISSION HITORY AND PHYSICAL HOSPITAL COURSE: patient was admitted to a medical bed. Resuscitation level I. as noted cultures were done. I reviewed her prior history of urinary tract infection and since 2011 she had multiple positive cultures for Enterococcus faecalis. It was sensitive to penicillin. I started her on Unasyn. She was given IV fluid. Her urine culture came back positive for Escherichia coli. It was resistant to Unasyn. Her antibiotic was changed to ciprofloxacin. 2 blood cultures were also positive for the same bacteria. Her condition started to improve. Her fever subsided. Her white cell count normalized. Her appetite improved. Her activity was gradually increased. Physical and occupational therapies were ordered. On 03/28/2017 patient was ready to be discharged. I saw her in the morning. On examination she was noted to be in atrial fibrillation with rapid ventricular response. She was transferred to PCU with telemetry. Metoprolol was discontinued. She was started on sotalol. Also started Xarelto. She remained in atrial fibrillation initially. Cardizem was added to her regimen. She was seen in cardiology consultation by Dr. Lyn. She did convert back to sinus rhythm with a combination of the sotalol and the Cardizem. Dr. Lyn recommended discontinuation of sotalol because of the risk of toxicity. She was placed back on metoprolol tartrate 50 mg twice a day and continued on Cardizem. Her chest x-ray showed mild congestive changes. She was given IV Lasix. Her echocardiogram was done. The study was thought to be difficult. Her ejection fraction was 50-55%. There was evidence of anteroseptal hypokinesis. Aortic valve sclerosis which was moderate. No stenosis. Because of the finding on her echocardiogram and nuclear cardiac study was done. There was no evidence of any ischemia. The left ventricle was hyperdynamic. The ejection fraction was 70%. There was no evidence of any wall motion abnormality. Her condition stabilized. She remained in sinus rhythm. Mostly sinus bradycardia. Her activity was increased. She was ambulating. She was discharged home. Medications as noted above. Followup in the office one week after her discharge.
== END 2017-04-01 10:55 | disposition home or self-care (01) | DRG 872 ==
LOC: C.EDB 16:17 → C.MS2W 20:00 → ENRESERV 20:22 → C.2T 03-28 09:22
PROVIDERS: ADMIT Internal Medicine; ATTEND Internal Medicine
DX: A41.59 Other Gram-negative sepsis (principal); N10 Acute pyelonephritis; Z68.41 Body mass index [BMI] 40.0-44.9, adult; Z87.440 Personal history of urinary (tract) infections; E11.9 Type 2 diabetes mellitus without complications; Z85.3 Personal history of malignant neoplasm of breast; Z79.4 Long term (current) use of insulin; E86.0 Dehydration; I12.9 Hypertensive chronic kidney disease with stage 1 through stage 4 chronic kidney disease, or unspecified chronic kidney disease; E66.01 Morbid (severe) obesity due to excess calories; Z85.42 Personal history of malignant neoplasm of other parts of uterus; Z92.3 Personal history of irradiation; N18.9 Chronic kidney disease, unspecified; I48.91 Unspecified atrial fibrillation; I27.20 Pulmonary hypertension, unspecified; I50.9 Heart failure, unspecified; F41.9 Anxiety disorder, unspecified

== ENCOUNTER → 2017-05-21 | Outpatient (CLI) | payer OTHER ==
[~2017-05-21] MED LIST changes: +ATV/1 PO; +CLOT1CRE12 TD; +CPR500 PO; +DILT120C50 PO; +DILT120C68 PO; +INSDGIPEN SC; +RABE20TA5 PO; +RIVA1.5T PO; +URC10 PO; +XRL15 PO
[2017-05-21 13:14] LABS: HEMATOCRIT 22.1 % (37-47); MEAN CELL VOLUME 99.5 fL (80-100); MEAN CORPUSCULAR HGB CONC 32.1 g/dl (32-36); MEAN PLATELET VOLUME 11.8 fL (7.4-10.4); PLATELET COUNT 244 K/uL (130-400); RED BLOOD COUNT 2.22 M/uL (4.2-5.4); WHITE BLOOD COUNT 5.11 K/uL (4.8-10.8)
[2017-05-21 13:28] LABS: ALT/SGPT 20 U/L (12-78); AST/SGOT 12 U/L (15-37); BLOOD UREA NITROGEN 34 mg/dl (7-18); BUN/CREATININE RATIO 19.7 (10-20); CALCIUM 8.5 mg/dl (8.5-10.1); CARBON DIOXIDE 28 mmol/L (21-32); CHLORIDE 100 mmol/L (98-107); CREATININE 1.73 mg/dl (0.60-1.20); GLUCOSE 162 mg/dl (70-99); POTASSIUM 3.6 mmol/L (3.5-5.1); SODIUM 135 mmol/L (136-145)
[2017-05-21 13:31] LABS: ALKALINE PHOSPHATASE 81 U/L (45-117)
[2017-05-21 13:52] LABS: BASO % 0.2 %; BASO ABS # 0.01 K/uL (0-0.2); COMPLETE YES; EOS % 2.2 %; IG% 0.2 %; LYMPH % 27.6 %; LYMPH ABS # 1.41 K/uL (1.2-3.4); MONO % 10.6 %; NEUT % 59.2 %; POLYCHROMASIA 1+; TEAR DROP CELLS 1+
== END | disposition home or self-care (01) ==
LOC: C.LABSPEC 12:09
PROVIDERS: ATTEND Internal Medicine
DX: R53.83 Other fatigue (principal); I48.91 Unspecified atrial fibrillation; I11.9 Hypertensive heart disease without heart failure

== ENCOUNTER 2017-05-22 16:28 | Observation (INO) | payer OTHER ==
[~2017-05-22] VITALS: Ht 157.5 cm; Wt 96.6 kg
[~2017-05-22 16:28] MED LIST changes: -ATV/1 PO; -CLOT1CRE12 TD; +DILT-202 PO; -DILT120C50 PO; -DILT120C68 PO; -INSDGIPEN SC; -RABE20TA5 PO; -RIVA1.5T PO; -URC10 PO
--- NOTE | 2017-05-22 16:56 | EMERGENCY ROOM VISIT NOTE ---
History Report prepared by Kirsty: Doug Longo Under the Supervision of: Dr. Jeremy Lane M.D. First contact with patient: 16:46 Chief Complaint: REFERRED BY DOCTOR Stated Complaint: WEAKNESS;LOW BLOOD PRESSURE;LOW BLOOD COUNT History of Present Illness The patient is a 76 year old white female with a past medical history of pyelonephritis, UTI, and DM II who presents to the ED with a cc of constant weakness beginning 4 days ago. Went to PCP, blood pressure was low, told to come straight to ED due to a low blood count. Blood count was last checked a week ago. Positive mild chills last week, nausea. Negative falls, lightheadedness, fevers, chest pain, SOB, cough, recent travel, recent abx use, congestion, missing medication, trouble defecating, trouble urinating. Pt is currently on Xarelto. Review of EMR shows the patient was recently admitted for pyelonephritis. Source of History: patient Onset: 4 days ago Position: other (global) Quality: other (weakness) Timing: constant Associated Symptoms: + chills (mild), + nausea, No fevers, No chest pain, No SOB Note: Associated symptoms: low blood count, low blood pressure. Denies: falls, lightheadedness, recent travel, recent abx use, congestion, trouble defecating, trouble urinating. Review of Systems See HPI for pertinent positives and negatives. A total of ten systems were reviewed and were otherwise negative. Past Medical & Surgical Medical Problems: (1) Fatigue (2) LEFT PYELONEPHRITIS, UTI, DM2 (3) Malignant neoplasm of central portion of female breast Family History Patient reports no known family medical history. Social History Smoking Status: Never Smoker Drug Use: none Marital Status: Housing Status: lives with significant other Occupation Status: retired Current/Historical Medications Scheduled Allopurinol (Zyloprim), 300 MG PO QAM Diltiazem Hcl Ext Rel (Tiazac), 120 MG PO QAM Furosemide (Lasix), 40 MG PO BID Hydrocortisone 1% (Hydrocortisone 1%), 1 APPL TOP UD Insulin Glargine (Lantus Solostar), 50 UNITS SC QAM Insulin Glargine (Lantus Solostar), 20 UNITS SC QDD Lisinopril (Prinivil), 5 MG PO BID Metoprolol Tartrate (Lopressor) (Lopressor), 50 MG PO BID Potassium Citrate (Potassium Citrate), 30 MEQ PO BID Rabeprazole Sodium (Aciphex), 20 MG PO QAM Rivaroxaban (Xarelto), 15 MG PO DAILY Scheduled PRN Clotrimazole Vaginal (Clotrimazole), 1 APPLN TD DIRECTED PRN for AFFECTED AREA Lorazepam (Ativan), 1 MG PO Q8 PRN for PANIC ATTACKS Prednisone (Prednisone), 10 MG PO HS PRN for swelling Tramadol (Ultram), 50-100 MG PO Q4-6H PRN for Pain Allergies Coded Allergies: Hydrocodone (Verified Allergy, Mild, UNKNOWN "HAPPENED LONG TIME AGO", 05/22/17) Phenol (Verified Allergy, Unknown, LOCALIZED RASH AT INJECTION SITE, ) Protamine (Verified Allergy, Unknown, LOCALIZED RASH AT INJECTION SITE, ) Sodium Phosphate (Verified Allergy, Unknown, LOCALIZED RASH AT INJECTION SITE, 05/22/17) Zinc (Verified Allergy, Unknown, LOCALIZED RASH AT INJECTION SITE, 05/22/17 ) Hydroxychloroquine (Verified Adverse Reaction, Unknown, "BURPED FOR DAYS AND TORE MY STOMACH UP", 05/22/17) Physical Exam Vital Signs Date Time Temp Pulse Resp B/P (MAP) Pulse Ox O2 Delivery O2 Flow Rate FiO2 05/22/17 20:18 63 15 151/65 95 Room Air 05/22/17 18:25 58 05/22/17 18:20 64 18 127/57 94 Room Air 05/22/17 17:23 62 18 129/60 99 Room Air 05/22/17 17:19 98 Room Air 05/22/17 16:35 36.9 70 16 103/62 98 Room Air Physical Exam GENERAL: Awake, alert, well-appearing, NAD HENT: Normocephalic, atraumatic. EYES: Normal conjunctiva. Sclera non-icteric. NECK: Supple. No nuchal rigidity. FROM. RESPIRATORY: CTAB, no rhonchi, wheezing, crackles RECTAL: Trace heme positive. CARDIAC: RRR, no MRG ABDOMEN: Soft, NTND, BS+ MSK: No chest wall TTP, no LE edema NEURO: CN 2-12 intact, 5/5 upper and lower extremity strength, no dysmetria, no drift, good finger to nose, no sensory deficits. SKIN: No rash or jaundice noted. Medical Decision & Procedures ER Provider Diagnostic Interpretation: Radiology results as stated below per my review and radiologist interpretation: HEAD WITHOUT CONTRAST (CT) CLINICAL HISTORY: 76 years-old Female with EVALUATE WEAKNESS. Acute weakness TECHNIQUE: Multiple axial CT images of the head were obtained without contrast. A dose lowering technique was utilized adhering to the principles of ALARA. CT DOSE: 537.48 mGy.cm COMPARISON: None. FINDINGS: No acute intracranial hemorrhage, midline shift, intracranial mass, hydrocephalus, territorial ischemia or abnormal extra-axial collection. Mild to moderate atrophy with patchy areas of low-attenuation within the subcortical and periventricular white matter suggesting chronic microvascular ischemic changes. The calvarium is intact. The paranasal sinuses, mastoid air cells, and middle ear cavities are clear. Prior bilateral cataract repair. IMPRESSION: 1. No acute intracranial abnormality. 2. Mild to moderate atrophy with chronic microvascular ischemic changes. The above report was generated using voice recognition software. It may contain grammatical, syntax or spelling errors. Electronically signed by: Jonah Marcelo M.D. 05/22/2017 5:49 PM Dictated Date/Time: 05/22/2017 5:47 PM CHEST ONE VIEW PORTABLE CLINICAL HISTORY: Weakness. COMPARISON STUDY: Chest radiograph March 29, 2017. FINDINGS: Patient is mildly rotated. Mild cardiomegaly is unchanged. There is no evidence of pulmonary edema. No pneumothorax or pleural effusion is present. There is no consolidation to suggest pneumonia. Appearance of the chest is unchanged. IMPRESSION: No acute cardiopulmonary findings. Electronically signed by: Destin Gandara M.D. 05/22/2017 5:16 PM Dictated Date/Time: 05/22/2017 5:15 PM Laboratory Results 05/22/17 17:15 Red Blood Count 2.24, Mean Corpuscular Volume 98.7, Mean Corpuscular Hemoglobin 30.4, Mean Corpuscular Hemoglobin Concent 30.8 05/22/17 17:15 Test 05/22/17 17:15 05/22/17 18:21 White Blood Count 5.20 K/uL (4.8-10.8) Red Blood Count 2.24 M/uL (4.2-5.4) Hemoglobin 6.8 g/dL (12.0-16.0) Hematocrit 22.1 % (37-47) Mean Corpuscular Volume 98.7 fL (80-100) Mean Corpuscular Hemoglobin 30.4 pg (25-34) Mean Corpuscular Hemoglobin Concent 30.8 g/dl (32-36) Platelet Count 246 K/uL (130-400) Polychromasia 1+ Hypochromasia PRESENT Anisocytosis PRESENT Prothrombin Time 14.6 SECONDS (9.0-12.0) Prothromb Time International Ratio 1.4 (0.9-1.1) Activated Partial Thromboplast Time 31.3 SECONDS (21.0-31.0) Partial Thromboplastin Ratio 1.2 Anion Gap 6.0 mmol/L (3-11) Est Creatinine Clear Calc Drug Dose 29.7 ml/min Estimated GFR () 30.8 Estimated GFR (Non- 26.5 BUN/Creatinine Ratio 17.3 (10-20) Calcium Level 8.3 mg/dl (8.5-10.1) Magnesium Level 2.2 mg/dl (1.8-2.4) Total Bilirubin 0.5 mg/dl (0.2-1) Direct Bilirubin 0.1 mg/dl (0-0.2) Aspartate Amino Transf (AST/SGOT) 12 U/L (15-37) Alanine Aminotransferase (ALT/SGPT) 17 U/L (12-78) Alkaline Phosphatase 86 U/L (45-117) Troponin I < 0.015 ng/ml (0-0.045) Total Protein 6.6 gm/dl (6.4-8.2) Albumin 3.5 gm/dl (3.4-5.0) Lipase 144 U/L (73-393) Thyroid Stimulating Hormone (TSH) 1.870 uIu/ml (0.300-4.500) Urine Color YELLOW Urine Appearance CLEAR (CLEAR) Urine pH 8.5 (4.5-7.5) Urine Specific [place] 1.010 (1.000-1.030) Urine Protein NEG (NEG) Urine Glucose (UA) NEG (NEG) Urine Ketones NEG (NEG) Urine Occult Blood NEG (NEG) Urine Nitrite NEG (NEG) Urine Bilirubin NEG (NEG) Urine Urobilinogen NEG (NEG) Urine Leukocyte Esterase SMALL (NEG) Urine WBC (Auto) 5-10 /hpf (0-5) Urine RBC (Auto) 0-4 /hpf (0-4) Urine Hyaline Casts (Auto) 0 /lpf (0-5) Urine Epithelial Cells (Auto) >30 /lpf (0-5) Urine Bacteria (Auto) NEG (NEG) Urine Crystals (NONE PRSENT) Laboratory results reviewed by me Medications Administered Medications (Trade) Dose Ordered Sig/Neil Route Start Time Stop Time Status Last Admin Dose Admin Sodium Chloride 250 ml @ 250 mls/hr Q1H STAT IV 05/22/17 16:59 05/22/17 17:58 DC 05/22/17 17:22 250 MLS/HR ECG Indication: weakness Rate (beats per minute): 63 Rhythm: normal sinus Findings: other (Normal intervals, single Q wave in lead III, no other STS changes or TWI) ED Course 1649: The patient was evaluated in room C11B. A complete history and physical exam was performed. 1840: I reevaluated the patient and discussed exam findings. I explained the risks and benefits of a blood transfusion. The patient consented. 1847: I paged Dr. Barillas, [facility] Hospitalist. 1909: I reevaluated the patient and performed a rectal exam. Please refer to the physical exam for more information. 2014: Dr. Barillas, [facility] Hospitalist was evaluating the patient in the room. Medical Decision The patient is a 76 year old white female with a past medical history of pyelonephritis, gout, a fib on xarelto, UTI, and DM II who presents to the ED with a cc of constant weakness beginning 4 days ago. Differential diagnosis: Etiologies such as metabolic, infection, hypo/hyperglycemia, electrolyte abnormalities, cardiac sources, intracerebral event, toxicologic, neurologic, as well as others were entertained. Patient was seen and evaluated the bedside. Patient has complained of some generalized weakness ongoing since Thursday. Patient states she had blood work completed and was called by the primary care physician's nurse who referred her to the emergency department for further evaluation. Patient denies any infectious symptoms, chest pain, shortness of breath, abdominal pain, nausea or vomiting. Patient did have blood work that was completed along with EKG, troponin, urinalysis, and CT of the brain. Patient's chest x-ray clear and CT of the brain negative. Patient blood work did show that she had a low hemoglobin. Patient's hemoglobin 6.8. Patient is on Xarelto. Patient denies any hematemesis or dark or tarry stools, or bright red blood per rectum. Patient's platelet count was pending. Patient's white blood cell count is normal. Patient's LFTs and lipase fairly unremarkable. Patient had an undetectable troponin and a nonischemic EKG. Patient does have some CK D with a baseline of 1.6 creatinine today is 1.8. Patient was consented 2 units PRBCs in the hospitalist was spoken to agreed to further evaluate and workup patient. There were exam was performed which did show some trace Hemoccult stool. There was no gross blood and no hemorrhoids or fissures seen. Of note patient is taking Xarelto. Patient was admitted for further evaluation, workup, and treatment. Medication Reconcilliation Current Medication List: was personally reviewed by me Blood Pressure Screening Patient's blood pressure: Normal blood pressure Blood pressure disposition: Did not require urgent referral Consults Time Called: 1847 Consulting Physician: Dr. Barillas, [facility] Hospitalist Impression Primary Impression: Weakness Additional Impressions: Anemia GI bleed Critical Care I have personally spent greater than 32 minutes of critical care time in the direct management of this patient. This includes bedside care, interpretation of diagnostic studies, and testing, discussion with consultants, patient, and family members, and other required patient management activities. This 32 minutes is in excess of all separately billable procedures. Scribe Attestation The scribe's documentation has been prepared under my direction and personally reviewed by me in its entirety. I confirm that the note above accurately reflects all work, treatment, procedures, and medical decision making performed by me. Departure Information Dispostion Being Evaluated By Hospitalist Referrals Marito Sheppard M.D. (PCP) Patient Instructions My [facility] Problem Qualifiers Additional Impressions: Anemia Anemia type: unspecified type Qualified Codes: D64.9 - Anemia, unspecified GI bleed GI bleed type/associated pathology: unspecified gastrointestinal hemorrhage type Qualified Codes: K92.2 - Gastrointestinal hemorrhage, unspecified
[2017-05-22] MEDS ORDERED: SODIUM CHLORIDE 0.9% 250ML 250 ML IV STA (16:59)
--- NOTE | 2017-05-22 17:18 | DIAGNOSTIC IMAGING REPORT ---
CHEST ONE VIEW PORTABLE CLINICAL HISTORY: Weakness. COMPARISON STUDY: Chest radiograph March 29, 2017. FINDINGS: Patient is mildly rotated. Mild cardiomegaly is unchanged. There is no evidence of pulmonary edema. No pneumothorax or pleural effusion is present. There is no consolidation to suggest pneumonia. Appearance of the chest is unchanged. IMPRESSION: No acute cardiopulmonary findings. Electronically signed by: Destin Gandara M.D. 05/22/2017 5:16 PM Dictated Date/Time: 05/22/2017 5:15 PM
--- NOTE | 2017-05-22 17:50 | DIAGNOSTIC IMAGING REPORT ---
HEAD WITHOUT CONTRAST (CT) CLINICAL HISTORY: 76 years-old Female with EVALUATE WEAKNESS. Acute weakness TECHNIQUE: Multiple axial CT images of the head were obtained without contrast. A dose lowering technique was utilized adhering to the principles of ALARA. CT DOSE: 537.48 mGy.cm COMPARISON: None. FINDINGS: No acute intracranial hemorrhage, midline shift, intracranial mass, hydrocephalus, territorial ischemia or abnormal extra-axial collection. Mild to moderate atrophy with patchy areas of low-attenuation within the subcortical and periventricular white matter suggesting chronic microvascular ischemic changes. The calvarium is intact. The paranasal sinuses, mastoid air cells, and middle ear cavities are clear. Prior bilateral cataract repair. IMPRESSION: 1. No acute intracranial abnormality. 2. Mild to moderate atrophy with chronic microvascular ischemic changes. The above report was generated using voice recognition software. It may contain grammatical, syntax or spelling errors. Electronically signed by: Jonah Marcelo M.D. 05/22/2017 5:49 PM Dictated Date/Time: 05/22/2017 5:47 PM
[2017-05-22 17:52] LABS: BLOOD UREA NITROGEN 32 mg/dl (7-18); BUN/CREATININE RATIO 17.3 (10-20); CALCIUM 8.3 mg/dl (8.5-10.1); CARBON DIOXIDE 31 mmol/L (21-32); CHLORIDE 99 mmol/L (98-107); CREATININE 1.84 mg/dl (0.60-1.20); GLUCOSE 118 mg/dl (70-99); MAGNESIUM 2.2 mg/dl (1.8-2.4); POTASSIUM 3.8 mmol/L (3.5-5.1); SODIUM 136 mmol/L (136-145)
[2017-05-22 17:53] LABS: ALT/SGPT 17 U/L (12-78)
[2017-05-22 18:03] LABS: ALKALINE PHOSPHATASE 86 U/L (45-117); AST/SGOT 12 U/L (15-37)
[2017-05-22 18:10] LABS: INR 1.4 (0.9-1.1); PARTIAL THROMBOPLASTIN RATIO 1.2; PROTHROMBIN TIME (PATIENT) 14.6 SECONDS (9.0-12.0)
[2017-05-22 18:23] LABS: HEMATOCRIT 22.1 % (37-47); MEAN CELL VOLUME 98.7 fL (80-100); MEAN CORPUSCULAR HEMOGLOBIN 30.4 pg (25-34); MEAN CORPUSCULAR HGB CONC 30.8 g/dl (32-36); RED BLOOD COUNT 2.24 M/uL (4.2-5.4)
[2017-05-22 18:33] LABS: ANISOCYTOSIS PRESENT; COMPLETE YES; HYPOCHROMIA PRESENT; POLYCHROMASIA 1+
[2017-05-22 18:42] LABS: URINE APPEARANCE CLEAR (CLEAR); URINE BILIRUBIN NEG (NEG); URINE COLOR YELLOW; URINE EPITHELIAL CELL AUTO >30 /lpf (0-5); URINE NITRITE NEG (NEG); URINE PH 8.5 (4.5-7.5); UROBILINOGEN NEG (NEG)
[2017-05-22 18:45] LABS: MANUAL MICROSCOPIC REQUIRED? NO; REVIEW REQ? YES
[2017-05-22] MEDS ORDERED: ATV/1 PO (19:24)
[2017-05-22] MEDS ORDERED: RABE20TA5 PO (19:24)
[2017-05-22] MEDS ORDERED: CLOT1CRE12 TD (19:24)
[2017-05-22] MEDS ORDERED: URC10 PO (19:24)
[2017-05-22] MEDS ORDERED: RIVA1.5T PO (19:24)
[2017-05-22] MEDS ORDERED: DILT120C68 PO (19:24)
[2017-05-22] MEDS ORDERED: INSDGIPEN SC ×2 (19:24)
[2017-05-22] MEDS ORDERED: ALUMINUM/MAGNESIUM/SIMETH (MAALOX MAX) 30 ML UDC PO PRN (20:15)
[2017-05-22] MEDS ORDERED: ACETAMINOPHEN 325 MG TAB PO PRN (20:15)
[2017-05-22] MEDS ORDERED: MAGNESIUM HYDROXIDE SUSP 30 ML UDC PO PRN (20:15)
[2017-05-22] MEDS ORDERED: POLYETHYLENE (MIRALAX) 17 GM PACK PO PRN (20:15)
[2017-05-22] MEDS ORDERED: LORAZEPAM 1 MG TAB PO PRN (20:45)
--- NOTE | 2017-05-22 21:04 | History and Physical ---
History & Physical Date & Time of Service: May 22, 2017 at 20:53 Chief Complaint: Weakness;Low Blood Pressure;Low Blood Count Primary Care Physician: Marito Sheppard M.D. History of Present Illness Source: patient 76 y/o F Hx PAF, DM II, diastolic CHF, CKD III, chronic anemia. Pt presented to her PCP earlier in the day with a complaint of generalized fatigue. Her PC checked her hemoglobin which registered at 6.8. She was instructed to attend the hospital. She states she is unable to exert herself without feeling markedly weak. She denies CP, N/V, lightheadedness, fevers/rigors, dysuria. She does state that she feels her has been darker than usual since commencing Xarelto for a new diagnosis of AF approximately 6 weeks ago. A guiac test in the ER was mildly (+). Past Medical/Surgical History 1) HTN 2) Diastolic CHF - preserved EF 3) Breast CA - diagnosed 2011 - underwent partial mastectomy, radiation 4) CKD III - baseline creatinine 1.5-2 5) Paroxysmal atrial fibrillation - recent diagnosis - placed on Xarelto 6) Chronic anemia - normocytic - ranges form 8-10 7) Nephrolithiasis 8) Obesity 9) DM II Family History Patient reports no known family medical history. Social History Smoking Status: Never Smoker Drug Use: none Marital Status: Occupational Status: retired Multi-Drug Resistant Organisms History of MDRO: No Allergies Coded Allergies: Hydrocodone (Verified Allergy, Mild, UNKNOWN "HAPPENED LONG TIME AGO", 05/22/17) Phenol (Verified Allergy, Unknown, LOCALIZED RASH AT INJECTION SITE, ) Protamine (Verified Allergy, Unknown, LOCALIZED RASH AT INJECTION SITE, ) Sodium Phosphate (Verified Allergy, Unknown, LOCALIZED RASH AT INJECTION SITE, 05/22/17) Zinc (Verified Allergy, Unknown, LOCALIZED RASH AT INJECTION SITE, 05/22/17 ) Hydroxychloroquine (Verified Adverse Reaction, Unknown, "BURPED FOR DAYS AND TORE MY STOMACH UP", 05/22/17) Home Medications Scheduled Allopurinol (Zyloprim), 300 MG PO QAM Diltiazem Hcl Ext Rel (Tiazac), 120 MG PO QAM Furosemide (Lasix), 40 MG PO BID Hydrocortisone 1% (Hydrocortisone 1%), 1 APPL TOP UD Insulin Glargine (Lantus Solostar), 50 UNITS SC QAM Insulin Glargine (Lantus Solostar), 20 UNITS SC QDD Lisinopril (Prinivil), 5 MG PO BID Metoprolol Tartrate (Lopressor) (Lopressor), 50 MG PO BID Potassium Citrate (Potassium Citrate), 30 MEQ PO BID Rabeprazole Sodium (Aciphex), 20 MG PO QAM Rivaroxaban (Xarelto), 15 MG PO DAILY Scheduled PRN Clotrimazole Vaginal (Clotrimazole), 1 APPLN TD DIRECTED PRN for AFFECTED AREA Lorazepam (Ativan), 1 MG PO Q8 PRN for PANIC ATTACKS Prednisone (Prednisone), 10 MG PO HS PRN for swelling Tramadol (Ultram), 50-100 MG PO Q4-6H PRN for Pain Review of Systems Constitutional: + weakness, + fatigue, No fever, No chills, No sweats Eyes: No worsening of vision ENT: No hearing loss, No nasal symptoms Respiratory: No cough, No wheezing Cardiovascular: No chest pain, No orthopnea, No PND Abdomen: + problem reported (Reports dark stool), No pain, No nausea, No vomiting Musculoskeletal: No joint pain Genitourinary - Female: No dysuria, No hematuria Neurologic: + weakness, No memory loss, No paralysis Psychiatric: No depression symptoms Endocrine: + fatigue Hematologic / Lymphatic: No abnormal bleeding/bruising Integumentary: No rash Allergic / Immunologic: No environmental allergies Physical Exam Vital Signs Date Time Temp Pulse Resp B/P (MAP) Pulse Ox O2 Delivery O2 Flow Rate FiO2 05/22/17 18:25 58 05/22/17 18:20 64 18 127/57 94 Room Air 05/22/17 17:23 62 18 129/60 99 Room Air 05/22/17 17:19 98 Room Air 05/22/17 16:35 36.9 70 16 103/62 98 Room Air General Appearance: WD/WN, no apparent distress Head: normocephalic Eyes: normal inspection ENT: normal ENT inspection, pharynx normal Neck: supple, no JVD Respiratory/Chest: chest non-tender, lungs clear, normal breath sounds Cardiovascular: regular rate, rhythm, no edema, no gallop Abdomen/GI: normal bowel sounds, non tender, soft Back: normal inspection, no CVA tenderness, no muscle spasm, normal range of motion Extremities/Musculoskelatal: normal inspection, no calf tenderness, normal capillary refill 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, no motor/sensory deficits, alert, oriented x 3 Skin: normal color, warm/dry Diagnostics Laboratory Results Results Past 24 Hours Test 05/22/17 17:15 05/22/17 18:21 Range/Units White Blood Count 5.20 4.8-10.8 K/uL Red Blood Count 2.24 4.2-5.4 M/uL Hemoglobin 6.8 12.0-16.0 g/dL Hematocrit 22.1 37-47 % Mean Corpuscular Volume 98.7 80-100 fL Mean Corpuscular Hemoglobin 30.4 25-34 pg Mean Corpuscular Hemoglobin Concent 30.8 32-36 g/dl Polychromasia 1+ Hypochromasia PRESENT Anisocytosis PRESENT Prothrombin Time 14.6 9.0-12.0 SECONDS Prothromb Time International Ratio 1.4 0.9-1.1 Activated Partial Thromboplast Time 31.3 21.0-31.0 SECONDS Partial Thromboplastin Ratio 1.2 Sodium Level 136 136-145 mmol/L Potassium Level 3.8 3.5-5.1 mmol/L Chloride Level 99 98-107 mmol/L Carbon Dioxide Level 31 21-32 mmol/L Anion Gap 6.0 3-11 mmol/L Blood Urea Nitrogen 32 7-18 mg/dl Creatinine 1.84 0.60-1.20 mg/dl Est Creatinine Clear Calc Drug Dose 29.7 ml/min Estimated GFR () 30.8 Estimated GFR (Non- 26.5 BUN/Creatinine Ratio 17.3 10-20 Random Glucose 118 70-99 mg/dl Calcium Level 8.3 8.5-10.1 mg/dl Magnesium Level 2.2 1.8-2.4 mg/dl Total Bilirubin 0.5 0.2-1 mg/dl Direct Bilirubin 0.1 0-0.2 mg/dl Aspartate Amino Transf (AST/SGOT) 12 15-37 U/L Alanine Aminotransferase (ALT/SGPT) 17 12-78 U/L Alkaline Phosphatase 86 45-117 U/L Troponin I < 0.015 0-0.045 ng/ml Total Protein 6.6 6.4-8.2 gm/dl Albumin 3.5 3.4-5.0 gm/dl Lipase 144 73-393 U/L Thyroid Stimulating Hormone (TSH) 1.870 0.300-4.500 uIu/ml Urine Color YELLOW Urine Appearance CLEAR CLEAR Urine pH 8.5 4.5-7.5 Urine Specific [place] 1.010 1.000-1.030 Urine Protein NEG NEG Urine Glucose (UA) NEG NEG Urine Ketones NEG NEG Urine Occult Blood NEG NEG Urine Nitrite NEG NEG Urine Bilirubin NEG NEG Urine Urobilinogen NEG NEG Urine Leukocyte Esterase SMALL NEG Urine WBC (Auto) 5-10 0-5 /hpf Urine RBC (Auto) 0-4 0-4 /hpf Urine Hyaline Casts (Auto) 0 0-5 /lpf Urine Epithelial Cells (Auto) >30 0-5 /lpf Urine Bacteria (Auto) NEG NEG Urine Crystals NONE PRSENT Microbiology Results 05/22/17 Urine Culture, Received Pending EKG NSR Impression Assessment and Plan 76 y/o F Hx PAF, DM II, diastolic CHF, CKD III, chronic anemia. Pt presented to her PCP earlier in the day with a complaint of generalized fatigue. Her PC checked her hemoglobin which registered at 6.8. She was instructed to attend the hospital. She states she is unable to exert herself without feeling markedly weak. She denies CP, N/V, lightheadedness, fevers/rigors, dysuria. She does state that she feels her has been darker than usual since commencing Xarelto for a new diagnosis of AF approximately 6 weeks ago. A guiac test in the ER was mildly (+). 1) Worsening anemia - she is not that far off her baseline, however, she is currently symptomatic and will receive 2 units of PRBCs. It may be that her current anemia is due to slow GI blood loss owing to Xarelto use. We will request a GI consult. If there is no clear improvement following transfusion, would consider repeating a limited echo as she is also at risk of a cardiac event. Her Xarelto has been placed on hold. 2) Diastolic CHF - clinically euvolemic at present - cont Lasix - an additional dose is provided between transfusions. Cont a b elvin. 3) CKD III - creatinine is at baseline. 4) DM - placed on a SS 5) PAF - currently sinus - cont Metoprolol - Xarelt held Full code - Heparin prophylaxis Total time for this admit including review of labs, meds, imaging - discussion with pt and ER attending - 35 min Level of Care Med/Surg Resuscitation Status FULL RESUSCITATION VTE Prophylaxis VTE Risk Assessment Done? Y/N: Yes Risk Level: Moderate Given or contraindicated: SCD's
[2017-05-22 21:43] VITALS: BP 109/61; PULSE 68; TEMP 36.7; O2SAT 97; Ht 157.5 cm; Wt 96.6 kg
[2017-05-22] MEDS ORDERED: FUROSEMIDE INJ 20 MG in SYRINGE 0 ML IV SCH (21:45)
[2017-05-22 21:47] VITALS: BP 150/75; PULSE 60; TEMP 36.8; O2SAT 99
[2017-05-22] MEDS ORDERED: GLUCAGON FOR INJ 1 MG VIAL SQ PRN (22:00)
[2017-05-22] MEDS: FUROSEMIDE 40 MG TAB PO SCH (22:00)
[2017-05-22] MEDS ORDERED: GLUCOSE 10 TABS/TUBE PO PRN (22:00)
[2017-05-22] MEDS: METOPROLOL TARTRATE 50 MG TAB PO SCH (22:00)
[2017-05-22] MEDS ORDERED: DEXTROSE 50% 50 ML SYR IV PRN (22:00)
[2017-05-22] MEDS: POTASSIUM CITRATE 10 MEQ TAB PO SCH ×2 (22:00→23:15)
[2017-05-22] MEDS: LISINOPRIL 5 MG TAB PO SCH (22:00)
[2017-05-22] MEDS ORDERED: GLUCOSE 40% GEL 15 GM TUBE PO PRN (22:00)
[2017-05-22 22:05] VITALS: BP 167/84; PULSE 64; TEMP 36.5; O2SAT 97
[2017-05-22 22:05] LABS: PLATELET COUNT 246 K/uL (130-400)
[2017-05-22 22:36] VITALS: BP 124/66; PULSE 57; TEMP 36.6; O2SAT 97
[2017-05-22 23:05] VITALS: BP 118/65; PULSE 59; TEMP 36.7; O2SAT 95
[2017-05-22] MEDS: TRAMADOL HCL 50 MG TAB PO PRN (23:14)
[2017-05-22] MEDS: PANTOprazole INJ 40 MG in SYRINGE 0 ML IV SCH (23:15)
[2017-05-23] VITALS (13 sets, daily range): BP systolic 92–151; BP diastolic 57–71; PULSE 56–65; TEMP 36.5–37.1; O2SAT 95–98
[2017-05-23] MEDS ORDERED: IV FLUIDS COMPLETED PRN (01:00)
[2017-05-23] MEDS ORDERED: NURSING VERBAL MED ORDER ONE ×2 (01:45→07:30)
[2017-05-23] MEDS ORDERED: ONDANSETRON INJ 2 MG/ML 2 ML VIAL IV ONE (02:15)
[2017-05-23] MEDS: INSULIN ASPART 100 UNITS/ML 3 ML PEN SC SCH ×5 (06:00→21:00)
[2017-05-23] MEDS ORDERED: INSULIN ASPART 100 UNITS/ML 3 ML PEN SC SCH (06:30)
[2017-05-23 06:49] LABS: BUN/CREATININE RATIO 19.2 (10-20); CALCIUM 8.4 mg/dl (8.5-10.1); CREATININE 1.5 mg/dl (0.60-1.20); POTASSIUM 3.7 mmol/L (3.5-5.1)
[2017-05-23] MEDS: LISINOPRIL 5 MG TAB PO SCH ×2 (06:57→21:00)
[2017-05-23] MEDS: TRAMADOL HCL 50 MG TAB PO PRN ×2 (07:48→20:01)
[2017-05-23] MEDS: INSULIN GLARGINE SOLOSTAR 100 UNITS/ML 3 ML PEN SC SCH (08:49)
[2017-05-23] MEDS: FUROSEMIDE 40 MG TAB PO SCH ×2 (08:49→21:13)
[2017-05-23] MEDS: METOPROLOL TARTRATE 50 MG TAB PO SCH ×2 (08:49→21:12)
[2017-05-23] MEDS: PANTOprazole INJ 40 MG in SYRINGE 0 ML IV SCH ×2 (08:49→21:00)
[2017-05-23] MEDS: POTASSIUM CITRATE 10 MEQ TAB PO SCH ×2 (08:50→21:12)
[2017-05-23] MEDS: DILTIAZEM HCL 120 MG EXT REL CAP PO SCH (08:50)
[2017-05-23] MEDS: ALLOPURINOL 300 MG TAB PO SCH (08:51)
--- NOTE | 2017-05-23 11:01 | Hospitalist Progress Note ---
Hospitalist Progress Note Date of Service May 23, 2017. (Carmina Ellis ., TANIA) Subjective Pt evaluation today including: conversation w/ patient, physical exam, chart review, lab review Voiding: no voiding problems Ms. Skaggs feels much better this morning. No nausea or vomiting, no black tarry stools or kamila bleeding. She does complain of some fatigue but otherwise feels at her baseline ROS Constitutional: no chills, aches, sweats or fever Respiratory: no sob,cough, sputum, or wheezing Cardiac: no chest pain, palpitations, edema, orthopnea or lightheadedness GI: no abdominal pain, nausea, vomiting, diarrhea or constipation : no dysuria or hesitancy Extremities: no joint pain or weakness Skin: no rash All Other Systems: Reviewed and Negative (Carmina Ellis CRNP) Medications Medications Administered Medications (Trade) Dose Ordered Sig/Neil Route Start Time Stop Time Status Last Admin Dose Admin Sodium Chloride 250 ml @ 250 mls/hr Q1H STAT IV 05/22/17 16:59 05/22/17 17:58 DC 05/22/17 17:22 250 MLS/HR Allopurinol (Zyloprim Tab) 300 mg QAM PO 05/23/17 09:00 06/22/17 08:59 05/23/17 08:51 300 MG Diltiazem HCl (TIAzac CAP) 120 mg QAM PO 05/23/17 09:00 06/22/17 08:59 05/23/17 08:50 120 MG Furosemide (Lasix Tab) 40 mg BID PO 05/22/17 22:00 06/21/17 21:59 05/23/17 08:49 40 MG Insulin Glargine (Lantus Solostar Pen) 50 units QAM SC 05/23/17 09:00 06/22/17 08:59 05/23/17 08:49 50 UNITS Metoprolol Tartrate (Lopressor Tab) 50 mg BID PO 05/22/17 22:00 06/21/17 21:59 05/23/17 08:49 50 MG Potassium Citrate (Urocit-K Tab) 30 meq BID PO 05/22/17 22:00 06/21/17 21:59 05/23/17 08:50 30 MEQ Tramadol HCl (Ultram Tab) 50 mg Q8H PRN PO 05/22/17 20:45 06/21/17 20:44 05/23/17 07:48 50 MG Furosemide 20 mg/ Syringe 2 ml @ 4 mls/min TODAY@2144 IV 05/22/17 21:45 05/22/17 23:00 DC 05/23/17 00:58 4 MLS/MIN Pantoprazole Sodium 40 mg/ Syringe 10 ml @ 5 mls/min DAILY@,21 IV 05/22/17 22:30 06/21/17 22:29 05/23/17 08:49 5 MLS/MIN Ondansetron HCl (Zofran Inj) 4 mg NOW ONCE IV 05/23/17 02:15 05/23/17 02:16 DC 05/23/17 02:18 4 MG (Carmina Ellis ., TANIA) Objective Vital Signs Date Time Temp Pulse Resp B/P (MAP) Pulse Ox O2 Delivery O2 Flow Rate FiO2 05/23/17 08:00 96 Room Air 05/23/17 07:57 36.8 61 20 122/68 (86) 96 05/23/17 03:40 36.9 64 18 119/68 98 05/23/17 02:41 36.6 56 18 113/66 95 05/23/17 02:10 36.7 57 18 124/69 97 05/23/17 01:40 36.5 63 20 151/61 98 05/23/17 01:25 36.6 65 16 122/65 96 05/23/17 00:58 62 125/71 (89) 05/23/17 00:05 36.7 63 18 112/70 97 05/23/17 00:00 Room Air 05/22/17 23:05 36.7 59 20 118/65 95 05/22/17 22:36 36.6 57 18 124/66 97 05/22/17 22:05 36.5 64 18 167/84 97 05/22/17 21:47 36.8 60 20 150/75 99 0.0 05/22/17 21:43 36.7 68 18 109/61 97 Room Air 05/22/17 21:14 61 16 121/63 98 05/22/17 21:10 61 16 121/63 98 Room Air 05/22/17 20:18 63 15 151/65 95 Room Air 05/22/17 18:25 58 05/22/17 18:20 64 18 127/57 94 Room Air 05/22/17 17:23 62 18 129/60 99 Room Air 05/22/17 17:19 98 Room Air 05/22/17 16:35 36.9 70 16 103/62 98 Room Air (Carmina Ellis CRNP) Physical Exam Notes: General: no distress Eyes: normal inspection, PERLL Respiratory: chest non tender, clear to auscultation, normal breath sounds, no respiratory distress, no accessory muscle use Cardiac: regular rate and rhythm, no rub or gallop, 2/6 systolic murmur rusb, no edema, no jvd GI/: active bowel sounds, no abd pain or tenderness, soft, non distended Extremities: normal range of motion, normal strength, non tender Neuro/Psych: alert and oriented x 3, normal mood and affect Skin: normal color, dry (Carmina Ellis CRNP) Laboratory Results Last 24 Hours Test 05/22/17 17:15 05/22/17 18:21 05/22/17 21:50 05/23/17 00:07 White Blood Count 5.20 K/uL Red Blood Count 2.24 M/uL Hemoglobin 6.8 g/dL Hematocrit 22.1 % Mean Corpuscular Volume 98.7 fL Mean Corpuscular Hemoglobin 30.4 pg Mean Corpuscular Hemoglobin Concent 30.8 g/dl Platelet Count 246 K/uL Polychromasia 1+ Hypochromasia PRESENT Anisocytosis PRESENT Prothrombin Time 14.6 SECONDS Prothromb Time International Ratio 1.4 Activated Partial Thromboplast Time 31.3 SECONDS Partial Thromboplastin Ratio 1.2 Sodium Level 136 mmol/L Potassium Level 3.8 mmol/L Chloride Level 99 mmol/L Carbon Dioxide Level 31 mmol/L Anion Gap 6.0 mmol/L Blood Urea Nitrogen 32 mg/dl Creatinine 1.84 mg/dl Est Creatinine Clear Calc Drug Dose 29.7 ml/min Estimated GFR () 30.8 Estimated GFR (Non- 26.5 BUN/Creatinine Ratio 17.3 Random Glucose 118 mg/dl Calcium Level 8.3 mg/dl Magnesium Level 2.2 mg/dl Total Bilirubin 0.5 mg/dl Direct Bilirubin 0.1 mg/dl Aspartate Amino Transf (AST/SGOT) 12 U/L Alanine Aminotransferase (ALT/SGPT) 17 U/L Alkaline Phosphatase 86 U/L Troponin I < 0.015 ng/ml Total Protein 6.6 gm/dl Albumin 3.5 gm/dl Lipase 144 U/L Thyroid Stimulating Hormone (TSH) 1.870 uIu/ml Urine Color YELLOW Urine Appearance CLEAR Urine pH 8.5 Urine Specific [place] 1.010 Urine Protein NEG Urine Glucose (UA) NEG Urine Ketones NEG Urine Occult Blood NEG Urine Nitrite NEG Urine Bilirubin NEG Urine Urobilinogen NEG Urine Leukocyte Esterase SMALL Urine WBC (Auto) 5-10 /hpf Urine RBC (Auto) 0-4 /hpf Urine Hyaline Casts (Auto) 0 /lpf Urine Epithelial Cells (Auto) >30 /lpf Urine Bacteria (Auto) NEG Urine Crystals Bedside Glucose 91 mg/dl 79 mg/dl Test 05/23/17 05:36 05/23/17 06:07 05/23/17 07:44 Hemoglobin 8.8 g/dL Sodium Level 136 mmol/L Potassium Level 3.7 mmol/L Chloride Level 102 mmol/L Carbon Dioxide Level 31 mmol/L Anion Gap 3.0 mmol/L Blood Urea Nitrogen 29 mg/dl Creatinine 1.50 mg/dl Est Creatinine Clear Calc Drug Dose 35.7 ml/min Estimated GFR () 39.4 Estimated GFR (Non- 34.0 BUN/Creatinine Ratio 19.2 Random Glucose 64 mg/dl Calcium Level 8.4 mg/dl Bedside Glucose 74 mg/dl 73 mg/dl (Carmina Ellis CRNP) Assessment and Plan Ms. Skaggs is a 76 year old woman here for anemia in the setting of Xeralto which was initiated 6 weeks ago for PAF. Anemia - received 2 units over night and hgb this morning is 8.8, repeat h&h later this morning - GI consulted - continue to hold xeralto until seen by GI Diastolic CHF - continue lasix and beta elvin - no evidence of fluid overload at this time CKD III - baseline creatinine - 1.5 this morning DM - continue SS - bsgs controlled PAF - cont Metoprolol - Xeralto on hold full code (Carmina Ellis CRNP) I agree with PA assessment and plan and have seen and examined pt myself Resting comfortably in bed Asymptomatic No abd pain VSS Labs reviewed S/p transfusion, H/H stable DC xarelto at this time Cont IV protonix Await GI recs (Jaswinder Gold, Jason.O.)
[2017-05-23 12:03] LABS: HEMATOCRIT 28.6 % (37-47)
--- NOTE | 2017-05-23 12:47 | GASTROINTESTINAL CONSULTATION ---
DATE OF CONSULTATION: 05/23/2017 DATE OF CONSULTATION: 05/23/2017 ATTENDING PHYSICIAN: Dr. Barillas. CONSULTING PHYSICIAN: Dr. Sanchez. REASON FOR CONSULTATION: GI bleed. HISTORY OF PRESENT ILLNESS: Carmen Skaggs is a 76-year-old female who was started on Xarelto therapy during a hospitalization approximately 6 weeks ago for new onset atrial fibrillation. She stated that she developed some dark stools since that time and also has a history of chronic kidney disease with a baseline H&H in the 9-10 region. She had outpatient laboratory testing done which showed an H&H of 6.8 and 22.1 and was subsequently advised to be seen in the ER where she was subsequently admitted. She did have slight heme positivity on stool per the hospitalist note and was started on Protonix 40 mg IV b.i.d. Her hemoglobin after 2 units packed red blood cells increased to 8.8 early this morning and repeat done just within the past hour shows an H&H of 9.1 and 28.6. The patient herself denies any fevers, chills, nausea, vomiting, hematemesis, melena, hematochezia, abdominal pain. She states she has never been told that she has had a peptic ulcer. She further denies any history of NSAID use. She states that she has undergone a colonoscopy approximately 10 years ago in [place], though does not have the results with her, though she states it was normal and was told to follow up in 10 years. She denies any further complaints. PAST MEDICAL HISTORY: Significant for type 2 diabetes, paroxysmal atrial fibrillation, chronic kidney disease stage III, chronic anemia, diastolic heart failure, nephrolithiasis, obesity, breast cancer. PAST SURGICAL HISTORY: Includes a partial mastectomy and history of colonoscopy. ALLERGIES: INCLUDE HYDROCODONE, phenol, protamine, sodium phosphate, zinc, hydroxychloroquine. MEDICATIONS: At the present time include sliding scale insulin, Zyloprim 300 mg p.o. q.a.m., diltiazem 120 mg p.o. q.a.m., Lantus 50 units subQ q.a.m., Protonix 40 mg IV b.i.d., Lasix 40 mg p.o. b.i.d., Zestril 5 mg p.o. b.i.d., Lopressor 50 mg p.o. b.i.d., potassium citrate 30 mEq p.o. b.i.d., Ativan 1 mg p.o. q. 8 p.r.n. panic attacks, prednisone 10 mg p.o. at bedtime p.r.n. swelling, Ultram 50 mg p.o. q. 8 p.r.n. pain, Tylenol 650 mg p.o. q. 4 hours p.r.n. pain or fever, Maalox 15 mL p.o. q. 4 p.r.n. dyspepsia, milk of magnesia 30 mL p.o. q. 6 p.r.n. constipation, and MiraLax 17 grams p.o. daily p.r.n. constipation. SOCIAL HISTORY: She denies any tobacco, alcohol or illicit drug use. She is . FAMILY HISTORY: Negative for GI malignancy or inflammatory bowel disease. REVIEW OF SYSTEMS: Negative x10 system review other than pertinent positives listed in the HPI. PHYSICAL EXAMINATION: VITAL SIGNS: Today include a temp of 36.8, pulse 61, respirations 20, blood pressure 122/68, pulse ox 96% on room air. GENERAL EXAMINATION: She is awake, cooperative, in no acute distress. HEAD: Normocephalic, atraumatic. EYES: Pupils equally round. Extraocular muscles are intact. ENT: External evaluation of ears and nose are normal. Oropharynx is clear. NECK: Soft and supple. There is no JVD or lymphadenopathy. CHEST: Clear to auscultation bilaterally. CARDIOVASCULAR SYSTEM: Regular rate and rhythm. ABDOMEN: Soft, nontender, nondistended. Positive bowel sounds. There is no hepatosplenomegaly or stigmata of chronic liver disease. EXTREMITIES: No clubbing, cyanosis, or edema. SKIN: Soft and pink. Good turgor. LABORATORY STUDIES: Reviewed in the HPI. IMPRESSION: A 76-year-old female with recently diagnosed atrial fibrillation who started on Xarelto therapy with slight heme positivity and chronic anemia most likely due to chronic blood loss. PLAN: At the present time, the patient is eating and therefore is not eligible to undergo any endoscopic workup today. I do not think it is urgent or emergent and at this time anyway therefore I would recommend that if the patient tolerates p.o. intake she can be evaluated as an outpatient with both a colonoscopy and upper endoscopy for source of bleeding. This can be scheduled through my office and I will my office team contact her early this coming week to arrange this for her. If she requires persistent hospitalization or has a decline in her H&H this can be scheduled while she is an inpatient. I will leave this at the discretion of the primary team. I will follow her clinical course and make further recommendations as needed. I would continue her on Protonix 40 mg p.o. b.i.d. and advance her diet as tolerated.
[2017-05-23 18:21] LABS: HEMATOCRIT 28.1 % (37-47)
[2017-05-24] MEDS: INSULIN ASPART 100 UNITS/ML 3 ML PEN SC SCH (06:30)
[2017-05-24 06:41] LABS: HEMATOCRIT 29.2 % (37-47); MEAN CELL VOLUME 97.7 fL (80-100); MEAN CORPUSCULAR HEMOGLOBIN 30.8 pg (25-34); MEAN CORPUSCULAR HGB CONC 31.5 g/dl (32-36); MEAN PLATELET VOLUME 11.7 fL (7.4-10.4); PLATELET COUNT 221 K/uL (130-400); RED BLOOD COUNT 2.99 M/uL (4.2-5.4); WHITE BLOOD COUNT 6.47 K/uL (4.8-10.8)
[2017-05-24 08:00] VITALS: O2SAT 96
[2017-05-24] MEDS: METOPROLOL TARTRATE 50 MG TAB PO SCH (08:03)
[2017-05-24] MEDS: FUROSEMIDE 40 MG TAB PO SCH (08:03)
[2017-05-24] MEDS: DILTIAZEM HCL 120 MG EXT REL CAP PO SCH (08:04)
[2017-05-24] MEDS: LISINOPRIL 5 MG TAB PO SCH (08:04)
[2017-05-24] MEDS: POTASSIUM CITRATE 10 MEQ TAB PO SCH (08:05)
[2017-05-24] MEDS: ALLOPURINOL 300 MG TAB PO SCH (08:05)
[2017-05-24] MEDS: INSULIN GLARGINE SOLOSTAR 100 UNITS/ML 3 ML PEN SC SCH (08:08)
[2017-05-24] MEDS: PANTOprazole INJ 40 MG in SYRINGE 0 ML IV SCH (08:10)
[2017-05-24 08:12] VITALS: BP 113/72; PULSE 60; TEMP 36.4; O2SAT 90
--- NOTE | 2017-05-24 10:03 | Discharge Instructions ---
Discharge Instructions Date of Service May 24, 2017. Admission Reason for Admission: Anemia, Fatigue Discharge Discharge Diagnosis / Problem: GI bleed, anemia Discharge Goals Goal(s): Improve disease control Activity Recommendations Activity Limitations: resume your previous activity . Instructions / Follow-Up Instructions / Follow-Up Please follow up with your primary care within about a week, and follow up with GI within the next two weeks Continue to hold your Xeralto until Thursday when you should resume taking it. Continue to take your Aciphex until you see GI Current Hospital Diet Patient's current hospital diet: AHA Diet (Heart Healthy), Diabetes Type 2 Diet Discharge Diet Recommended Diet: AHA Diet (Heart Healthy), Diabetes Type 2 Diet Procedures Procedures Performed: Chest X ray Head CT Pending Studies Studies pending at discharge: no Laboratory Results Hemoglobin A1c Test 03/24/17 06:29 Range/Units Estimated Average Glucose 166 mg/dl Hemoglobin A1c 7.4 H 4.5-5.6 % Medical Emergencies . Who to Call and When: Medical Emergencies: If at any time you feel your situation is an emergency, please call 911 immediately. . Non-Emergent Contact Non-Emergency issues call your: Primary Care Provider, [employer] Call Non-Emergent contact if: you have any medication questions . Past History Medical & Surgical History: (1) GI bleed (2) Weakness (3) Anemia . "Provider Documentation" section prepared by Carmina Ellis. . VTE Core Measure Inpt VTE Proph given/why not?: SCD's
[2017-05-24 10:41] VITALS: BP 113/72; PULSE 60; TEMP 36.4; O2SAT 90
--- NOTE | 2017-05-24 12:14 | Discharge Summary ---
Discharge Summary Date of Service May 24, 2017. Discharge Summary Admission Date: May 22, 2017 at 20:33 Discharge Date: May 24, 2017 Discharge Disposition: Home Principal Diagnosis: Anemia due to GI bleed in the setting of anticoagulation with Xeralto Problems/Secondary Diagnoses: PAF, DM II, diastolic CHF, CKD III, chronic anemia Procedures: CHEST ONE VIEW PORTABLE CLINICAL HISTORY: Weakness. COMPARISON STUDY: Chest radiograph March 29, 2017. FINDINGS: Patient is mildly rotated. Mild cardiomegaly is unchanged. There is no evidence of pulmonary edema. No pneumothorax or pleural effusion is present. There is no consolidation to suggest pneumonia. Appearance of the chest is unchanged. IMPRESSION: No acute cardiopulmonary findings. HEAD WITHOUT CONTRAST (CT) CLINICAL HISTORY: 76 years-old Female with EVALUATE WEAKNESS. Acute weakness TECHNIQUE: Multiple axial CT images of the head were obtained without contrast. A dose lowering technique was utilized adhering to the principles of ALARA. CT DOSE: 537.48 mGy.cm COMPARISON: None. FINDINGS: No acute intracranial hemorrhage, midline shift, intracranial mass, hydrocephalus, territorial ischemia or abnormal extra-axial collection. Mild to moderate atrophy with patchy areas of low-attenuation within the subcortical and periventricular white matter suggesting chronic microvascular ischemic changes. The calvarium is intact. The paranasal sinuses, mastoid air cells, and middle ear cavities are clear. Prior bilateral cataract repair. IMPRESSION: 1. No acute intracranial abnormality. 2. Mild to moderate atrophy with chronic microvascular ischemic changes. Medication Reconciliation Continued Medications: Allopurinol (Zyloprim) 300 Mg Tab 300 MG PO QAM Clotrimazole Vaginal (Clotrimazole) 1 % Cre 1 APPLN TD DIRECTED PRN for AFFECTED AREA Diltiazem Hcl Ext Rel (Tiazac) 120 Mg Capcr 120 MG PO QAM, CAP Furosemide (Lasix) 40 Mg Tab 40 MG PO BID Hydrocortisone 1% (Hydrocortisone 1%) 90 Appln/30 Gm Cr 1 APPL TOP UD Insulin Glargine (Lantus Solostar) 100 Unit/Ml Inj 50 UNITS SC QAM, PEN Insulin Glargine (Lantus Solostar) 100 Unit/Ml Inj 20 UNITS SC QDD, PEN Lisinopril (Prinivil) 5 Mg Tab 5 MG PO BID Lorazepam (Ativan) 1 Mg Tab 1 MG PO Q8 PRN for PANIC ATTACKS, TAB Metoprolol Tartrate (Lopressor) (Lopressor) 50 Mg Tab 50 MG PO BID Potassium Citrate (Potassium Citrate) 10 Meq Tab 30 MEQ PO BID Prednisone (Prednisone) 5 Mg Tab 10 MG PO HS PRN for swelling, TAB Rabeprazole Sodium (Aciphex) 20 Mg Tab 20 MG PO QAM, TAB Rivaroxaban (Xarelto) 15 Mg Tab 15 MG PO DAILY, TAB Tramadol (Ultram) 50 Mg Tab 50-100 MG PO Q4-6H PRN for Pain Discharge Exam ROS Constitutional: no chills, aches, sweats or fever Respiratory: no sob,cough, sputum, or wheezing Cardiac: no chest pain, palpitations, edema, orthopnea or lightheadedness GI: no abdominal pain, nausea, vomiting, diarrhea or constipation : no dysuria or hesitancy Extremities: no joint pain or weakness Skin: no rash PE General: no distress Eyes: normal inspection, PERLL Respiratory: chest non tender, clear to auscultation, normal breath sounds, no respiratory distress, no accessory muscle use Cardiac: regular rate and rhythm, no rub or gallop, no murmur, no edema, no jvd GI/: active bowel sounds, no abd pain or tenderness, soft, non distended Extremities: normal range of motion, normal strength, non tender Neuro/Psych: alert and oriented x 3, normal mood and affect Skin: normal color, dry Hospital Course Ms. Skaggs is a 76 year old woman here for anemia in the setting of Xeralto which was initiated 6 weeks ago for PAF. Hx PAF, DM II, diastolic CHF, CKD III , chronic anemia. Pt presented to her PCP earlier in the day of admission with a complaint of generalized fatigue. Her PC checked her hemoglobin which registered at 6.8. She was instructed to attend the hospital. She states she is unable to exert herself without feeling markedly weak. Anemia - received 2 units 12/8 - hgb stable subsequently - 9.2 at time of discharge - GI consulted - no intervention at this time and will follow outpatient to assess for need for outpatient endoscopy/colo - continue Aciphex outpatient - patient to continue to hold Xarelto until Thursday Diastolic CHF - continued lasix and beta elvin - no evidence of fluid overload during her stay CKD III - baseline creatinine DM - continue SS - bsgs controlled PAF - cont Metoprolol - Xeralto held I agree with assessment and plan and have seen and examined pt myself VSS Labs reviewed Hg stable No further bleeding Asymptomatic Instructed pt to resume xarelto on thursday Cont aciphex at this time Stable for DC home Total Time Spent: Greater than 30 minutes This includes examination of the patient, discharge planning, medication reconciliation, and communication with other providers. Discharge Instructions Please refer to the electronic Patient Visit Report (Discharge Instructions) for additional information. Follow-Up GI within two weeks Primary within one week
== END 2017-05-24 11:17 | disposition home or self-care (01) ==
LOC: C.EDB 16:30 → C.MS2W 20:33 → EDBEDREQSVC 20:56 → ENRESERV 20:58
PROVIDERS: ADMIT Internal Medicine; ATTEND Hospitalist
DX: D50.0 Iron deficiency anemia secondary to blood loss (chronic) (principal); E11.22 Type 2 diabetes mellitus with diabetic chronic kidney disease; I13.0 Hypertensive heart and chronic kidney disease with heart failure and stage 1 through stage 4 chronic kidney disease, or unspecified chronic kidney disease; N18.3 Chronic kidney disease, stage 3 (moderate); I48.0 Paroxysmal atrial fibrillation; I50.30 Unspecified diastolic (congestive) heart failure; Z79.01 Long term (current) use of anticoagulants; Z79.4 Long term (current) use of insulin; Z79.899 Other long term (current) drug therapy; E66.9 Obesity, unspecified; Z85.3 Personal history of malignant neoplasm of breast; Z92.3 Personal history of irradiation; Z90.10 Acquired absence of unspecified breast and nipple

== ENCOUNTER → 2017-05-29 | Day surgery (SDC) | payer OTHER ==
[2017-05-26 10:02] VITALS: Ht 157.5 cm; Wt 96.4 kg
[~2017-05-29] VITALS: Ht 157.5 cm; Wt 96.4 kg
[~2017-05-29] MED LIST changes: -ACP20 PO; +ATV/1 PO; -ATV1 PO; +CLOT1CRE12 TD; -CPR500 PO; -DILT-202 PO; +DILT120C68 PO; +EpHEDrine SULFATE 50MG/5ML SYR ONE; +INSDGIPEN SC; -INSUINJ4 SC; +LIDOCAINE HCL 2% 2 ML VIAL (20MG/ML) ONE; -LISI-729 PO; -LTRCR15 TOP; -POTA1080 PO; +PROPOFOL IV EMULSION 10 MG/ML 20 ML VIAL IV ONE; +RABE20TA5 PO; +RIVA1.5T PO; +URC10 PO; -XRL15 PO
--- NOTE | 2017-05-29 10:29 | Endo History and Physical ---
History & Physical Date of Service: May 29, 2017. Chief Complaint: Anemia Referring Physician: Dr. Somers History of Present Illness 76 yo CF who presents for EGD and colonoscopy secondary to anemia. Past Surgical History Hx Cardiac Surgery: No Hx Internal Defibrillator: No Hx Pacemaker: No Hx Abdominal Surgery: Yes (ALANA) Hx of Implantable Prosthesis: No Hx Post-Op Nausea and Vomiting: No Hx Cancer Surgery: Yes ([facility] BSO, LT BREAST LUMPECTOMY, SKIN LESION REMOVALS) Hx Thoracic Surgery: No Hx Orthopedic: Yes (LT/RT CTR, RT TRIGGER FINGER RELEASE, BACK INJECTION) Hx Urinary Tract Surgery: No Family History IBD Social History Smoking Status: Never Smoker Hx Substance Use: No Hx Alcohol Use: No Allergies Coded Allergies: Hydrocodone (Verified Allergy, Mild, UNKNOWN "HAPPENED LONG TIME AGO", 05/31) Phenol (Verified Allergy, Unknown, LOCALIZED RASH AT INJECTION SITE, 05/26) Protamine (Verified Allergy, Unknown, LOCALIZED RASH AT INJECTION SITE, ) Sodium Phosphate (Verified Allergy, Unknown, LOCALIZED RASH AT INJECTION SITE, 05/26/17) Zinc (Verified Allergy, Unknown, LOCALIZED RASH AT INJECTION SITE, ) Hydroxychloroquine (Verified Adverse Reaction, Unknown, "BURPED FOR DAYS AND TORE MY STOMACH UP", 05/26/17) Current Medications Reported Home Medications Medications Dose Route/Sig Max Daily Dose Days Date Category Xarelto (Rivaroxaban) 15 Mg Tab 15 Mg PO QAM 05/22/17 Reported Tiazac (Diltiazem HCl) 120 Mg Capcr 120 Mg PO QAM 05/22/17 Reported Lantus Solostar (Insulin Glargine) 100 Unit/Ml Inj 20 Units SC QPM 05/22/17 Reported Lantus Solostar (Insulin Glargine) 100 Unit/Ml Inj 50 Units SC QAM 05/22/17 Reported Ativan (Lorazepam) 1 Mg Tab 1 Mg PO Q8 PRN 05/22/17 Reported Clotrimazole (Clotrimazole Vaginal) 1 % Cre 1 Appln TD DIRECTED PRN 05/22/17 Reported Potassium Citrate 10 Meq Tab 30 Meq PO BID 05/22/17 Reported Aciphex (Rabeprazole Sodium) 20 Mg Tab 20 Mg PO QAM 05/22/17 Reported Lopressor (Metoprolol Tartrate) 50 Mg Tab 50 Mg PO BID 02/28/16 Reported Prednisone 5 Mg Tab 10 Mg PO HS PRN 11/14/14 Reported Zyloprim (Allopurinol) 300 Mg Tab 300 Mg PO QAM 05/04/12 Reported Hydrocortisone 1% (Hydrocortisone) 90 Appln/30 Gm Cr 1 Appl TOP UD 10/24/11 Reported Ultram (Tramadol HCl) 50 Mg Tab 50-100 Mg PO Q4-6H PRN 07/03/10 Reported Lasix (Furosemide) 40 Mg Tab 40 Mg PO BID 07/03/10 Reported Vital Signs Weight (Kilograms): 96.36 Height (Feet): 5 Height (Inches): 2 Physical Exam General Appearance: WD/WN, no apparent distress Respiratory/Chest: Auscultation: breath sounds normal Cardiovascular: Heart Auscultation: RRR Abdomen: Bowel Sounds: normal Inspection & Palpation: soft, non-distended, no tenderness, guarding & rebound Assessment and Plan Assessment: 76 yo CF who presents for EGD and colonoscopy secondary to anemia. Plan: Proceed with EGD and colonoscopy.
--- NOTE | 2017-05-29 11:48 | GI REPORT ---
Procedure Date: 05/29/2017 10:38 AM Procedure: Colonoscopy Indications: Iron deficiency anemia Medicines: Monitored Anesthesia Care Complications: No immediate complications. Estimated Blood Loss: Estimated blood loss: none. Procedure: Pre-Anesthesia Assessment: - Prior to the procedure, a History and Physical was performed, and patient medications and allergies were reviewed. The patient's tolerance of previous anesthesia was also reviewed. The risks and benefits of the procedure and the sedation options and risks were discussed with the patient. All questions were answered, and informed consent was obtained. Prior Anticoagulants: The patient has taken Xarelto (rivaroxaban), last dose was 7 days prior to procedure. ASA Grade Assessment: III - A patient with severe systemic disease. After reviewing the risks and benefits, the patient was deemed in satisfactory condition to undergo the procedure. After I obtained informed consent, the scope was passed under direct vision. Throughout the procedure, the patient's blood pressure, pulse, and oxygen saturations were monitored continuously. The scope was introduced through the anus and advanced to the terminal ileum. The colonoscopy was performed without difficulty. The patient tolerated the procedure well. The quality of the bowel preparation was good. The terminal ileum, the appendiceal orifice and the rectum were photographed. Findings: The perianal and digital rectal examinations were normal. Multiple small-mouthed diverticula were found in the sigmoid colon. Non-bleeding internal hemorrhoids were found during retroflexion. The hemorrhoids were small. Impression: - Diverticulosis in the sigmoid colon. - Non-bleeding internal hemorrhoids. - No specimens collected. Recommendation: - Resume previous diet. - Continue present medications. - No repeat colonoscopy due to age and the absence of advanced adenomas. - Return to primary care physician as previously scheduled. Luke Sanchez, DO 05/29/2017 11:47:52 AM This report has been signed electronically. Note Initiated On: 05/29/2017 10:38 AM I attest to the content of the Intraoperative Record and orders documented therein, exceptions below
--- NOTE | 2017-05-29 11:54 | GI REPORT ---
Procedure Date: 05/29/2017 10:53 AM Procedure: Upper GI endoscopy Indications: Iron deficiency anemia Medicines: Monitored Anesthesia Care Complications: No immediate complications. Estimated Blood Loss: Estimated blood loss: none. Procedure: Pre-Anesthesia Assessment: - Prior to the procedure, a History and Physical was performed, and patient medications and allergies were reviewed. The patient's tolerance of previous anesthesia was also reviewed. The risks and benefits of the procedure and the sedation options and risks were discussed with the patient. All questions were answered, and informed consent was obtained. Prior Anticoagulants: The patient has taken Xarelto (rivaroxaban), last dose was 7 days prior to procedure. ASA Grade Assessment: III - A patient with severe systemic disease. After reviewing the risks and benefits, the patient was deemed in satisfactory condition to undergo the procedure. After obtaining informed consent, the endoscope was passed under direct vision. Throughout the procedure, the patient's blood pressure, pulse, and oxygen saturations were monitored continuously. The scope was introduced through the mouth, and advanced to the second part of duodenum. The upper GI endoscopy was accomplished without difficulty. The patient tolerated the procedure well. Findings: The examined esophagus was normal. A small hiatus hernia was present. Multiple 3 to 10 mm pedunculated and sessile polyps with no bleeding and no stigmata of recent bleeding were found in the gastric fundus. Localized moderate inflammation characterized by erosions was found in the gastric antrum. Biopsies were taken with a cold forceps for histology. The examined duodenum was normal. Impression: - Normal esophagus. - Small hiatus hernia. - Multiple gastric polyps. - Gastritis. Biopsied. - Normal examined duodenum. Recommendation: - Resume previous diet. - Continue present medications. - Await pathology results. - Use sucralfate suspension 1 gram PO QID for 10 days. Luke Sanchez, DO 05/29/2017 11:53:56 AM This report has been signed electronically. Note Initiated On: 05/29/2017 10:53 AM I attest to the content of the Intraoperative Record and orders documented therein, exceptions below
[2017-05-29 12:16] VITALS: BP 132/60; PULSE 78; O2SAT 90
--- NOTE | 2017-05-29 12:17 | Anesthesiology Progress Note ---
Anesthesia Post Op Note Date & Time May 29, 2017 at 12:17 Vital Signs Pain Intensity: 0 Vital Signs Past 12 Hours Date Time Temp Pulse Resp B/P (MAP) Pulse Ox O2 Delivery O2 Flow Rate FiO2 05/29/17 11:59 70 20 119/63 (81) 96 Room Air 05/29/17 11:45 74 18 96/44 (61) 95 Room Air 05/29/17 10:43 36.7 73 20 154/76 (102) 100 Room Air Notes Mental Status: alert / awake / arousable, participated in evaluation Pt Amnestic to Procedure: Yes Nausea / Vomiting: adequately controlled Pain: adequately controlled Airway Patency, RR, SpO2: stable & adequate BP & HR: stable & adequate Hydration State: stable & adequate Anesthetic Complications: no major complications apparent
--- NOTE | 2017-05-29 12:39 | Discharge Instructions ---
Endoscopy Patient Instructions Date / Procedure(s) Performed May 29, 2017. Colonoscopy, EGD Allergy Information Coded Allergies: Hydrocodone (Verified Allergy, Mild, UNKNOWN "HAPPENED LONG TIME AGO", 05/31) Phenol (Verified Allergy, Unknown, LOCALIZED RASH AT INJECTION SITE, 05/26) Protamine (Verified Allergy, Unknown, LOCALIZED RASH AT INJECTION SITE, ) Sodium Phosphate (Verified Allergy, Unknown, LOCALIZED RASH AT INJECTION SITE, 05/26/17) Zinc (Verified Allergy, Unknown, LOCALIZED RASH AT INJECTION SITE, ) Hydroxychloroquine (Verified Adverse Reaction, Unknown, "BURPED FOR DAYS AND TORE MY STOMACH UP", 05/26/17) Discharge Date / Findings May 29, 2017. EGD: Hiatal hernia, Gastric polyps, Gastritis s/p biopsies Colonoscopy: Diverticulosis, Internal hemorrhoids Medication Instructions Stopped Medication(s): XARELTO 05/22/17 1) Start Carafate 1g by mouth by mouth 4 times daily for 10 days 2) OK to resume all medications today as prescribed Reported Home Medications Medications Dose Route/Sig Max Daily Dose Days Date Category Xarelto (Rivaroxaban) 15 Mg Tab 15 Mg PO QAM 05/22/17 Reported Tiazac (Diltiazem HCl) 120 Mg Capcr 120 Mg PO QAM 05/22/17 Reported Lantus Solostar (Insulin Glargine) 100 Unit/Ml Inj 20 Units SC QPM 05/22/17 Reported Lantus Solostar (Insulin Glargine) 100 Unit/Ml Inj 50 Units SC QAM 05/22/17 Reported Ativan (Lorazepam) 1 Mg Tab 1 Mg PO Q8 PRN 05/22/17 Reported Clotrimazole (Clotrimazole Vaginal) 1 % Cre 1 Appln TD DIRECTED PRN 05/22/17 Reported Potassium Citrate 10 Meq Tab 30 Meq PO BID 05/22/17 Reported Aciphex (Rabeprazole Sodium) 20 Mg Tab 20 Mg PO QAM 05/22/17 Reported Lopressor (Metoprolol Tartrate) 50 Mg Tab 50 Mg PO BID 02/28/16 Reported Prednisone 5 Mg Tab 10 Mg PO HS PRN 11/14/14 Reported Zyloprim (Allopurinol) 300 Mg Tab 300 Mg PO QAM 05/04/12 Reported Hydrocortisone 1% (Hydrocortisone) 90 Appln/30 Gm Cr 1 Appl TOP UD 10/24/11 Reported Ultram (Tramadol HCl) 50 Mg Tab 50-100 Mg PO Q4-6H PRN 07/03/10 Reported Lasix (Furosemide) 40 Mg Tab 40 Mg PO BID 07/03/10 Reported Provider Instructions Activity Restrictions - No exercising or heavy lifting for 24 hours. - Do not drink alcohol the day of the procedure. - Do not drive a car or operate machinery until the day after the procedure. - Do not make any important decisions or sign important papers in 24 hours after the procedure. Following Day: - Return to full activity which may include returning to work/school. Diet Start your diet with liquids and light foods (jello, soup, juice, toast). Then eat your usual diet if not nauseated. Treatment For Common After Affects For mild abdominal pain, bloating, or excessive gas: - Rest - Eat lightly - Lie on right side Follow-Up Information Follow-up with DR. CHRISTA JONES in 1 week Anesthesia Information What You Should Know You have had a procedure that required some medicine to reduce anxiety and discomfort. This treatment is called moderate sedation. After receiving the treatment, you may be sleepy, but you will be able to breathe on your own. The effects of the treatment may last for several hours. Follow these instructions along with Activity/Diet recommendations noted above: * Do NOT do anything where dizziness or clumsiness would be dangerous. * Rest quietly at home today, then you can be up and about tomorrow. * Have a responsible person stay with you the rest of today. * You may have had an I.V. today. If so, you may take the dressing off later today. Recommendations Call your doctor if: * Trouble breathing * Continuous vomiting for more than 24 hours * Temperature above 101 degrees * Severe abdominal pain or bloating * Pain not relieved by pain medicine ordered * There is increased drainage or redness from any incision * A large amount of rectal bleeding greater than 2-3 tablespoons. (If you had a polyp/s removed or have hemorrhoids, a small amount of blood - from the rectum is to be expected.) * You have any unanswered questions or concerns. IN THE EVENT OF A SERIOUS EMERGENCY, GO TO THE NEAREST EMERGENCY ROOM Your discharge instructions were prepared by provider Luke Sanchez. Patient Instructions Signature Page Carmen Skaggs Patient (or Guardian) Signature/Date: I have read and understand the instructions given to me by my caregivers. Caregiver/RN/Doctor Signature/Date: The above-named patient and/or guardian has received patient instructions on this date. + Original Patient Signature Page (only) stays with chart. Please make copy for patient.
== END | disposition home or self-care (01) ==
LOC: C.GI 09:43
PROVIDERS: ATTEND Internal Medicine
DX: D50.9 Iron deficiency anemia, unspecified (principal); K44.9 Diaphragmatic hernia without obstruction or gangrene; D13.1 Benign neoplasm of stomach; K29.50 Unspecified chronic gastritis without bleeding; K57.30 Diverticulosis of large intestine without perforation or abscess without bleeding; K64.8 Other hemorrhoids; Z83.79 Family history of other diseases of the digestive system; I48.91 Unspecified atrial fibrillation; Z79.899 Other long term (current) drug therapy; E78.5 Hyperlipidemia, unspecified; I50.9 Heart failure, unspecified; K21.9 Gastro-esophageal reflux disease without esophagitis; I13.0 Hypertensive heart and chronic kidney disease with heart failure and stage 1 through stage 4 chronic kidney disease, or unspecified chronic kidney disease; N18.9 Chronic kidney disease, unspecified; E11.22 Type 2 diabetes mellitus with diabetic chronic kidney disease; M19.90 Unspecified osteoarthritis, unspecified site; F41.9 Anxiety disorder, unspecified; F32.9 Major depressive disorder, single episode, unspecified; E66.9 Obesity, unspecified; Z68.39 Body mass index [BMI] 39.0-39.9, adult

== ENCOUNTER → 2017-06-11 | Outpatient (CLI) | payer OTHER ==
[~2017-06-11] MED LIST changes: -EpHEDrine SULFATE 50MG/5ML SYR ONE; -LIDOCAINE HCL 2% 2 ML VIAL (20MG/ML) ONE; -PROPOFOL IV EMULSION 10 MG/ML 20 ML VIAL IV ONE
[2017-06-11 15:34] LABS: BASO % 0.4 %; BASO ABS # 0.02 K/uL (0-0.2); EOS % 2.5 %; IG% 0.4 %; LYMPH ABS # 1.66 K/uL (1.2-3.4); MEAN CELL VOLUME 95.7 fL (80-100); MEAN CORPUSCULAR HEMOGLOBIN 29.7 pg (25-34); MEAN PLATELET VOLUME 12.7 fL (7.4-10.4); MONO % 11.1 %; NEUT % 51.6 %; PLATELET COUNT 197 K/uL (130-400); RED BLOOD COUNT 3.03 M/uL (4.2-5.4); WHITE BLOOD COUNT 4.88 K/uL (4.8-10.8)
[2017-06-11 15:59] LABS: COMPLETE YES; GIANT PLATELETS 1+; HYPOCHROMIA PRESENT
== END | disposition home or self-care (01) ==
LOC: C.LAB 13:56
PROVIDERS: ATTEND Physician Assistant
DX: D50.9 Iron deficiency anemia, unspecified (principal)

== ENCOUNTER 2017-07-07 04:06 | Inpatient (IN) | payer OTHER ==
[~2017-07-07] VITALS: Ht 157.5 cm; Wt 99.9 kg
[2017-07-07] VITALS (9 sets, daily range): BP systolic 110–134; BP diastolic 66–94; PULSE 85–121; TEMP 36.8–37; O2SAT 93–96; Ht 157.5 cm; Wt 99.9 kg
[2017-07-07] MEDS ORDERED: METOPROLOL TARTRATE 1 MG/ML VIAL IV STA ×4 (04:25→08:57)
[2017-07-07 04:33] LABS: BASO % 0.3 %; BASO ABS # 0.02 K/uL (0-0.2); EOS % 2.7 %; EOS ABS # 0.16 K/uL (0-0.5); HEMATOCRIT 35.3 % (37-47); HEMOGLOBIN 11.2 g/dL (12.0-16.0); IG# 0.02 K/uL (0.00-0.02); LYMPH % 28.3 %; LYMPH ABS # 1.66 K/uL (1.2-3.4); MEAN CELL VOLUME 99.2 fL (80-100); MEAN CORPUSCULAR HEMOGLOBIN 31.5 pg (25-34); MEAN CORPUSCULAR HGB CONC 31.7 g/dl (32-36); MEAN PLATELET VOLUME 11.2 fL (7.4-10.4); MONO % 9.9 %; MONO ABS # 0.58 K/uL (0.11-0.59); NEUT % 58.5 %; NEUT ABS # 3.43 K/uL (1.4-6.5); PLATELET COUNT 155 K/uL (130-400); RED CELL DISTRIBUTION WIDTH CV 20.2 % (11.5-14.5); RED CELL DISTRIBUTION WIDTH SD 72.4 fL (36.4-46.3); WHITE BLOOD COUNT 5.87 K/uL (4.8-10.8)
[2017-07-07 04:52] LABS: BLOOD UREA NITROGEN 20 mg/dl (7-18); CALCIUM 9.1 mg/dl (8.5-10.1); CARBON DIOXIDE 29 mmol/L (21-32); CREATININE 1.49 mg/dl (0.60-1.20); GLUCOSE 192 mg/dl (70-99); POTASSIUM 3.6 mmol/L (3.5-5.1); SODIUM 137 mmol/L (136-145)
[2017-07-07] MEDS ORDERED: SODIUM CHLORIDE 0.9% 1000ML 1,000 ML IV STA (05:08)
[2017-07-07] MEDS ORDERED: FERR324T PO (05:27)
[2017-07-07] MEDS ORDERED: FRS/40 PO (05:27)
--- NOTE | 2017-07-07 05:45 | EMERGENCY ROOM VISIT NOTE ---
History Report prepared by Kirsty: Timmy Cabrales Under the Supervision of: Dr. Gurvinder Crawford M.D. First contact with patient: 04:15 Chief Complaint: RAPID HEART RATE Stated Complaint: RAPID HEART RATE - AFID History of Present Illness The patient is a 76 year old female who presents to the Emergency Room with complaints of constant heart palpitations beginning just prior to arrival. She has a history of A-fib and was initially diagnosed a few months ago. Her previous A-fib resolved independently. The patient states that her symptoms woke her from sleep. She denies lightheadedness, SOB, or chest pain. She is not on any blood thinners due to an abdominal hemorrhage. Nothing has resolved her symptoms. Source of History: patient Onset: Just prior to arrival Quality: other (heart palpitations) Timing: constant Modifying Factors (Relieving): other (none) Associated Symptoms: No chest pain, No SOB Note: The patient denies lightheadedness. Review of Systems See HPI for pertinent positives & negatives. A total of 10 systems reviewed and were otherwise negative. Past Medical & Surgical Medical Problems: (1) Fatigue (2) GI bleed (3) LEFT PYELONEPHRITIS, UTI, DM2 (4) Malignant neoplasm of central portion of female breast Family History Patient reports no known family medical history. Social History Smoking Status: Never Smoker Drug Use: none Marital Status: Housing Status: lives with significant other Occupation Status: retired Current/Historical Medications Scheduled Allopurinol (Zyloprim), 300 MG PO QAM Diltiazem Hcl Ext Rel (Tiazac), 120 MG PO QAM Ferrous Gluconate (Iron Supplement), 324 MG PO BID Furosemide (Lasix), 40 MG PO QPM Furosemide (Lasix), 80 MG PO QAM Hydrocortisone 1% (Hydrocortisone 1%), 1 APPL TOP UD Insulin Glargine (Lantus Solostar), 50 UNITS SC QAM Insulin Glargine (Lantus Solostar), 20 UNITS SC QPM Metoprolol Tartrate (Lopressor) (Lopressor), 50 MG PO BID Potassium Citrate (Potassium Citrate), 30 MEQ PO BID Rabeprazole Sodium (Aciphex), 20 MG PO QAM Scheduled PRN Clotrimazole Vaginal (Clotrimazole), 1 APPLN TD DIRECTED PRN for AFFECTED AREA Lorazepam (Ativan), 1 MG PO Q8 PRN for PANIC ATTACKS Prednisone (Prednisone), 10 MG PO HS PRN for swelling Tramadol (Ultram), 50-100 MG PO Q4-6H PRN for Pain Allergies Coded Allergies: Hydrocodone (Verified Allergy, Mild, UNKNOWN "HAPPENED LONG TIME AGO", ) Phenol (Verified Allergy, Unknown, LOCALIZED RASH AT INJECTION SITE, ) Protamine (Verified Allergy, Unknown, LOCALIZED RASH AT INJECTION SITE, ) Sodium Phosphate (Verified Allergy, Unknown, LOCALIZED RASH AT INJECTION SITE, 07/07/17) Zinc (Verified Allergy, Unknown, LOCALIZED RASH AT INJECTION SITE, 07/07/17 ) Hydroxychloroquine (Verified Adverse Reaction, Unknown, "BURPED FOR DAYS AND TORE MY STOMACH UP", 07/07/17) Physical Exam Vital Signs Date Time Temp Pulse Resp B/P (MAP) Pulse Ox O2 Delivery O2 Flow Rate FiO2 07/07/17 05:58 120 20 122/82 97 07/07/17 05:30 117 20 133/92 96 Room Air 07/07/17 05:13 122 126/107 07/07/17 05:00 115 20 126/107 95 07/07/17 04:53 115 20 124/94 95 07/07/17 04:47 130 116/90 07/07/17 04:43 123 20 127/82 96 07/07/17 04:41 140 07/07/17 04:35 135 137/83 07/07/17 04:21 97 Room Air 07/07/17 04:11 36.7 120 20 139/78 97 Room Air Physical Exam GENERAL: Patient is mildly anxious appearing and in no acute distress. HEENT: No acute trauma, normocephalic atraumatic, mucous membranes moist, no nasal congestion, no scleral icterus. NECK: No stridor, no adenopathy, no meningismus, trachea is midline. LUNGS: No dyspnea. Clear to auscultation and equal bilaterally. No wheeze, no rhonchi. HEART: Tachycardic rate with an irregular rhythm. No murmurs, rubs, gallops appreciated. ABDOMEN: Soft, nontender, bowel sounds positive, no masses appreciated, no peritonitis. BACK: No midline tenderness, no CVA tenderness EXTREMITIES: Normal motion all extremities, no cyanosis, no edema. NEUROLOGIC: Alert and oriented, no acute motor or sensory deficits, no focal weakness, cranial nerves grossly intact. SKIN: No rash, no jaundice, no diaphoresis. Medical Decision & Procedures Laboratory Results 07/07/17 04:20 Red Blood Count 3.56, Mean Corpuscular Volume 99.2, Mean Corpuscular Hemoglobin 31.5, Mean Corpuscular Hemoglobin Concent 31.7, Mean Platelet Volume 11.2, Neutrophils (%) (Auto) 58.5, Lymphocytes (%) (Auto) 28.3, Monocytes (%) (Auto) 9.9, Eosinophils (%) (Auto) 2.7, Basophils (%) (Auto) 0.3, Neutrophils # (Auto) 3.43, Lymphocytes # (Auto) 1.66, Monocytes # (Auto) 0.58, Eosinophils # (Auto) 0.16, Basophils # (Auto) 0.02 07/07/17 04:20 Test 07/07/17 04:20 White Blood Count 5.87 K/uL (4.8-10.8) Red Blood Count 3.56 M/uL (4.2-5.4) Hemoglobin 11.2 g/dL (12.0-16.0) Hematocrit 35.3 % (37-47) Mean Corpuscular Volume 99.2 fL (80-100) Mean Corpuscular Hemoglobin 31.5 pg (25-34) Mean Corpuscular Hemoglobin Concent 31.7 g/dl (32-36) Platelet Count 155 K/uL (130-400) Mean Platelet Volume 11.2 fL (7.4-10.4) Neutrophils (%) (Auto) 58.5 % Lymphocytes (%) (Auto) 28.3 % Monocytes (%) (Auto) 9.9 % Eosinophils (%) (Auto) 2.7 % Basophils (%) (Auto) 0.3 % Neutrophils # (Auto) 3.43 K/uL (1.4-6.5) Lymphocytes # (Auto) 1.66 K/uL (1.2-3.4) Monocytes # (Auto) 0.58 K/uL (0.11-0.59) Eosinophils # (Auto) 0.16 K/uL (0-0.5) Basophils # (Auto) 0.02 K/uL (0-0.2) RDW Standard Deviation 72.4 fL (36.4-46.3) RDW Coefficient of Variation 20.2 % (11.5-14.5) Immature Granulocyte % (Auto) 0.3 % Immature Granulocyte # (Auto) 0.02 K/uL (0.00-0.02) Large Platelets 1+ Anisocytosis PRESENT Tear Drop Cells OCCASIONAL Ovalocytes 1+ Anion Gap 8.0 mmol/L (3-11) Est Creatinine Clear Calc Drug Dose 37.0 ml/min Estimated GFR () 39.7 Estimated GFR (Non- 34.2 BUN/Creatinine Ratio 13.3 (10-20) Calcium Level 9.1 mg/dl (8.5-10.1) Magnesium Level 1.9 mg/dl (1.8-2.4) Troponin I < 0.015 ng/ml (0-0.045) Thyroid Stimulating Hormone (TSH) 0.211 uIu/ml (0.300-4.500) Free Thyroxine 1.19 ng/dl (0.80-1.60) Laboratory results as reviewed by me. Medications Administered Medications (Trade) Dose Ordered Sig/Neil Route Start Time Stop Time Status Last Admin Dose Admin Metoprolol Tartrate (Lopressor Iv) 5 mg NOW STAT IV 07/07/17 04:25 07/07/17 04:27 DC 07/07/17 04:35 5 MG Metoprolol Tartrate (Lopressor Iv) 5 mg NOW STAT IV 07/07/17 04:44 07/07/17 04:45 DC 07/07/17 04:47 5 MG Sodium Chloride 1,000 ml @ 999 mls/hr Q1H1M STAT IV 07/07/17 05:08 07/07/17 06:08 DC 07/07/17 05:12 999 MLS/HR Metoprolol Tartrate (Lopressor Iv) 5 mg NOW STAT IV 07/07/17 05:08 07/07/17 05:09 DC 07/07/17 05:13 5 MG ECG Indication: palpitations Rate (beats per minute): 135 Rhythm: atrial fibrillation Findings: no acute ischemic change, other (RVR) ED Course 1618: The patient was evaluated in room B10. A complete history and physical exam was performed. 0425: Ordered Lopressor 5 mg IV. 0435: The patient received her Lopressor. 0444: I checked in on the patient. Her heart rate is 130. Ordered Lopressor 5 mg IV. 0508: Ordered Sodium Chloride 1000 ml @ 999 mls/hr IV. 0512: I reassessed the patient. Her heart rate is still in the 120's, and is still irregular. 0528: The patient's heart rate is still elevated. 0535: Upon reevaluation, the patient is resting comfortably. Discussed results and treatment plan with the patient. She verbalized understanding and agreement with the treatment plan. The patient will be evaluated for further management. Medical Decision Differential: NSR, SVT, PACs, PVCs, Cardiac Dysrhythmia, Endocrine Dysfunction, Eletrolyte/Metabolic Abnormality, Pulmonary Embolism, Infectious, GI, amonst other pathologies entertained. 76 yr old female arrives after palpitations awoke her from sleep. States no symptoms prior to going to bed. history of Afib a few months ago though unable to tolerate Xarelto due to GI bleed and requiring transfusion. She is Afib RVR here today. Given Lopressor 5mg IV x 3 with 1 L NSS and HR just dropped to 110s -120s from 130s-140s. Labs about her baseline though TSH is trending down and thus added on T4. Reviewed with Cards who feel that with symptomatic, persistent tachy despite tx, will need to be brought in to hospitalist for further work-up treatment. Patient comfortable with this plan, stable and without cp/sob throughout. Medication Reconcilliation Current Medication List: was personally reviewed by me Blood Pressure Screening Patient's blood pressure: Normal blood pressure Blood pressure disposition: Did not require urgent referral Consults Time Called: 05 Consulting Physician: Dr. Davis - Cardiology Returned Call: [phone] Discussed the patient's case. Dr. Davis recommends the patient be monitored in the hospital for heart rate control. Additional Consults: Time Called: 1957 Consulted Physician: Dr. Morrison - [facility] [place] Returned Call: [phone] Additional Comments: Discussed the patient's case. The patient will be evaluated for further treatment and disposition. Impression Primary Impression: Atrial fibrillation with RVR Additional Impression: Low TSH level Scribe Attestation The scribe's documentation has been prepared under my direction and personally reviewed by me in its entirety. I confirm that the note above accurately reflects all work, treatment, procedures, and medical decision making performed by me. Departure Information Dispostion Being Evaluated By Hospitalist Referrals Marito Sheppard M.D. (PCP) Patient Instructions My [facility] Problem Qualifiers
[2017-07-07] MEDS ORDERED: GLUCOSE 10 TABS/TUBE PO PRN (06:30)
[2017-07-07] MEDS ORDERED: ONDANSETRON 8MG OD TAB PO PRN (06:30)
[2017-07-07] MEDS ORDERED: DEXTROSE 50% 50 ML SYR IV PRN (06:30)
[2017-07-07] MEDS ORDERED: NITROGLYCERIN 0.4 MG SL PER TAB CHARGE SL PRN (06:30)
[2017-07-07] MEDS ORDERED: ACETAMINOPHEN 325 MG TAB PO PRN (06:30)
[2017-07-07] MEDS ORDERED: GLUCOSE 40% GEL 15 GM TUBE PO PRN (06:30)
[2017-07-07] MEDS ORDERED: GLUCAGON FOR INJ 1 MG VIAL SQ PRN (06:30)
--- NOTE | 2017-07-07 06:35 | History and Physical ---
History & Physical Date & Time of Service: Jul 07, 2017 at 06:34 Chief Complaint: Rapid Heart Rate - Afid Primary Care Physician: Marito Sheppard M.D. History of Present Illness Source: patient, hospital records The patient is a 76-year-old female who presents emergency department with complaint of rapid heart rate that awoke her from sleep, and that began just prior to arrival to the ED. She was diagnosed with atrial fibrillation a few months ago, but that upset had resolved independently. She has no associated chest pain, shortness of breath, lightheadedness, dizziness. She reports that she's had no change in usual activities and no change in her usual eating pattern. She's been diagnosed with GI bleed in the past, and therefore is not on any aspirin or anticoagulation. Past Medical/Surgical History Medical Problems: (1) Malignant neoplasm of central portion of female breast Permanent Comment: Left breast pain Finding of a left breast mass Status post biopsy revealing infiltrating ductal carcinoma Status post partial mastectomy and sentinel lymph node biopsy Pathologic stage [id number] Estrogen receptor positive, progesterone receptor positive, HER-2/abelardo negative Status post completion of radiation therapy 04/08/2012 received 6120 cGy Status: Resolved Family History Patient reports no known family medical history. Social History Smoking Status: Never Smoker Smokeless Tobacco Use: No Alcohol Use: none Drug Use: none Marital Status: Housing status: lives with family Occupational Status: retired Immunizations History of Influenza Vaccine: Unknown History of Tetanus Vaccine?: Unknown History of Pneumococcal: Unknown History of Hepatitis B Vaccine: Unknown Multi-Drug Resistant Organisms History of MDRO: No Allergies Coded Allergies: Hydrocodone (Verified Allergy, Mild, UNKNOWN "HAPPENED LONG TIME AGO", ) Phenol (Verified Allergy, Unknown, LOCALIZED RASH AT INJECTION SITE, ) Protamine (Verified Allergy, Unknown, LOCALIZED RASH AT INJECTION SITE, ) Sodium Phosphate (Verified Allergy, Unknown, LOCALIZED RASH AT INJECTION SITE, 07/07/17) Zinc (Verified Allergy, Unknown, LOCALIZED RASH AT INJECTION SITE, 07/07/17 ) Hydroxychloroquine (Verified Adverse Reaction, Unknown, "BURPED FOR DAYS AND TORE MY STOMACH UP", 07/07/17) Home Medications Scheduled Allopurinol (Zyloprim), 300 MG PO QAM Diltiazem Hcl Ext Rel (Tiazac), 120 MG PO QAM Ferrous Gluconate (Iron Supplement), 324 MG PO BID Furosemide (Lasix), 40 MG PO QPM Furosemide (Lasix), 80 MG PO QAM Hydrocortisone 1% (Hydrocortisone 1%), 1 APPL TOP UD Insulin Glargine (Lantus Solostar), 50 UNITS SC QAM Insulin Glargine (Lantus Solostar), 20 UNITS SC QPM Metoprolol Tartrate (Lopressor) (Lopressor), 50 MG PO BID Potassium Citrate (Potassium Citrate), 30 MEQ PO BID Rabeprazole Sodium (Aciphex), 20 MG PO QAM Scheduled PRN Clotrimazole Vaginal (Clotrimazole), 1 APPLN TD DIRECTED PRN for AFFECTED AREA Lorazepam (Ativan), 1 MG PO Q8 PRN for PANIC ATTACKS Prednisone (Prednisone), 10 MG PO HS PRN for swelling Tramadol (Ultram), 50-100 MG PO Q4-6H PRN for Pain Review of Systems The patient denies chest pain, shortness of breath, dyspnea on exertion, cough, lower extremity swelling, sore throat, fevers, chills, sweats, weight change, fatigue, nausea, vomiting, diarrhea , constipation, abdominal pain, pelvic pain, blood in urine or stool, dysuria, urinary frequency or urgency, lightheadedness , dizziness, headache, memory loss, loss of consciousness, rash, abnormal bruising or bleeding, imbalance, focal or generalized weakness, numbness or tingling in arms or legs, generalized arthralgias or myalgias, back or neck pain, or night sweats. The review of systems is otherwise negative other than for that already noted above, and at least 10 systems have been reviewed. Physical Exam Vital Signs Date Time Temp Pulse Resp B/P (MAP) Pulse Ox O2 Delivery O2 Flow Rate FiO2 07/07/17 05:58 120 20 122/82 97 07/07/17 05:30 117 20 133/92 96 Room Air 07/07/17 05:13 122 126/107 07/07/17 05:00 115 20 126/107 95 07/07/17 04:53 115 20 124/94 95 07/07/17 04:47 130 116/90 07/07/17 04:43 123 20 127/82 96 07/07/17 04:41 140 07/07/17 04:35 135 137/83 07/07/17 04:21 97 Room Air 07/07/17 04:11 36.7 120 20 139/78 97 Room Air The patient is awake, alert and oriented 3, well developed and well nourished, normocephalic and atraumatic, lying in bed and in no acute distress. HEENT--PERRL, EOMI, mucous membranes and oropharynx normal. Neck--supple. No JVD. No bruits. Thyroid normal, trachea midline, no adenopathy. Heart--irregularly irregular. No murmurs, rubs or gallops. Lungs--clear bilaterally, no respiratory distress, no accessory muscle use. Abdomen--normal bowel sounds and soft. Nontender. Nondistended, no hernias or masses, no organomegaly. Obese. Extremities--no cyanosis or clubbing. No edema. There are good distal pulses b/ l. Dermatologic--normal skin turgor, normal color, no abnormal lymph nodes, no rash. Neurologic--cranial nerves II through XII grossly intact. Rheumatologic--normal range of motion. Psychiatric--normal affect. Diagnostics Laboratory Results Results Past 24 Hours Test 07/07/17 04:20 Range/Units White Blood Count 5.87 4.8-10.8 K/uL Red Blood Count 3.56 4.2-5.4 M/uL Hemoglobin 11.2 12.0-16.0 g/dL Hematocrit 35.3 37-47 % Mean Corpuscular Volume 99.2 80-100 fL Mean Corpuscular Hemoglobin 31.5 25-34 pg Mean Corpuscular Hemoglobin Concent 31.7 32-36 g/dl Platelet Count 155 130-400 K/uL Mean Platelet Volume 11.2 7.4-10.4 fL Neutrophils (%) (Auto) 58.5 % Lymphocytes (%) (Auto) 28.3 % Monocytes (%) (Auto) 9.9 % Eosinophils (%) (Auto) 2.7 % Basophils (%) (Auto) 0.3 % Neutrophils # (Auto) 3.43 1.4-6.5 K/uL Lymphocytes # (Auto) 1.66 1.2-3.4 K/uL Monocytes # (Auto) 0.58 0.11-0.59 K/uL Eosinophils # (Auto) 0.16 0-0.5 K/uL Basophils # (Auto) 0.02 0-0.2 K/uL RDW Standard Deviation 72.4 36.4-46.3 fL RDW Coefficient of Variation 20.2 11.5-14.5 % Immature Granulocyte % (Auto) 0.3 % Immature Granulocyte # (Auto) 0.02 0.00-0.02 K/uL Large Platelets 1+ Anisocytosis PRESENT Tear Drop Cells OCCASIONAL Ovalocytes 1+ Sodium Level 137 136-145 mmol/L Potassium Level 3.6 3.5-5.1 mmol/L Chloride Level 100 98-107 mmol/L Carbon Dioxide Level 29 21-32 mmol/L Anion Gap 8.0 3-11 mmol/L Blood Urea Nitrogen 20 7-18 mg/dl Creatinine 1.49 0.60-1.20 mg/dl Est Creatinine Clear Calc Drug Dose 37.0 ml/min Estimated GFR () 39.7 Estimated GFR (Non- 34.2 BUN/Creatinine Ratio 13.3 10-20 Random Glucose 192 70-99 mg/dl Calcium Level 9.1 8.5-10.1 mg/dl Magnesium Level 1.9 1.8-2.4 mg/dl Troponin I < 0.015 0-0.045 ng/ml Thyroid Stimulating Hormone (TSH) 0.211 0.300-4.500 uIu/ml Free Thyroxine 1.19 0.80-1.60 ng/dl EKG EKG shows atrial fibrillation with RVR 137 bpm, there are no acute ST-T changes. Impression Assessment and Plan Atrial fibrillation with rapid ventricular response-- The patient will be admitted to telemetry for serial cardiac enzymes, serial EKG's, cardiac rhythm monitoring and a 2-D echocardiogram with Dopplers. She did receive metoprolol tartrate 5 mg IV 3 in the ED, with decrease in heart rate to the 110-120 range. Continue diltiazem extended release 120 mg by mouth every morning, with consideration to increase to twice a day. Increase metoprolol tartrate from 50 mg by mouth twice a day to 75mg by mouth twice a day. Continue furosemide 80 mg by mouth every morning and 40 mg by mouth every evening. Continue potassium citrate 30 mEq by mouth twice a day. Upon discussion with patient regarding her iron tablets, she does note that her stools are dark. She has been taking the iron pills at the same time as her other medications including metoprolol tartrate. I advised her to take the iron pills separately, as they are likely blocking the absorption of her other medications, including metoprolol tartrate, which may be resulting in her increased heart rate. Continue ferrous gluconate 324 mg by mouth twice a day. Cardiology is aware of the patient will be consulted to see her. She does also have a lower TSH level than usual at 0.211. We'll add a free T4 and a free T3 level, and a thyroid ultrasound. Question whether she may have an element of thyroiditis or developing thyrotoxicosis which could also contribute to her increased heart rate. Lopressor 5 mg IV every 4 hours when necessary heart rate greater than 120. Diabetes mellitus-- Continue Lantus insulin 50 units subcutaneous every morning and 20 units subcutaneous every afternoon. Place on Accu-Cheks before meals and at bedtime with NovoLog coverage per scale. GERD-- Change AcipHex 20 mg by mouth every morning to pantoprazole 40 mg by mouth every morning. Gout-- Continue allopurinol 300 mg by mouth every morning. Level of Care Telemetry Advanced Directives Existing Advance Directive: No Existing Living Will: No Existing Power of Socket Puller: No Resuscitation Status FULL RESUSCITATION VTE Prophylaxis VTE Risk Assessment Done? Y/N: Yes Risk Level: Moderate Given or contraindicated: SCD's
[2017-07-07] MEDS ORDERED: LORAZEPAM 1 MG TAB PO PRN (06:45)
[2017-07-07] MEDS ORDERED: CLOTRIMAZOLE VAG CR 45 GM TUBE PV PRN (06:45)
[2017-07-07] MEDS ORDERED: METOPROLOL TARTRATE 25 MG TAB PO SCH (09:00)
[2017-07-07] MEDS: POTASSIUM CITRATE 10 MEQ TAB PO SCH ×2 (09:06→20:38)
[2017-07-07] MEDS: PANTOprazole SOD 40 MG TAB PO SCH (09:06)
[2017-07-07] MEDS: FERROUS GLUCONATE 324 MG TAB PO SCH ×2 (09:07→21:27)
[2017-07-07] MEDS: DILTIAZEM HCL 120 MG EXT REL CAP PO SCH (09:07)
[2017-07-07] MEDS: ALLOPURINOL 300 MG TAB PO SCH (09:07)
[2017-07-07] MEDS: FUROSEMIDE 40 MG TAB PO SCH (09:08)
[2017-07-07] MEDS: INSULIN GLARGINE SOLOSTAR 100 UNITS/ML 3 ML PEN SC SCH (09:11)
[2017-07-07] MEDS: INSULIN ASPART 100 UNITS/ML 3 ML PEN SC SCH ×4 (09:13→20:41)
--- NOTE | 2017-07-07 09:53 | DIAGNOSTIC IMAGING REPORT ---
SOFT TISS HEAD/NECK-THYROID CLINICAL HISTORY: 76 years-old Female with low TSH. COMPARISON: None available TECHNIQUE: Multiple real time sonographic images of the thyroid were obtained accessing barragan scale appearance and color doppler flow. FINDINGS: MEASUREMENTS: Right lobe: 4.9 x 2.7 x 1.9 cm Left lobe: 4.7 x 2.4 x 1.9 cm Isthmus: 1.1 cm PARENCHYMA: The thyroid parenchymal echotexture is diffusely heterogeneous. NODULES: There are multiple hypoechoic nodules seen throughout the right thyroid, largest of which measures up to 5 mm, several of which demonstrate nonshadowing internal echogenicity suggesting colloid. No definite suspicious right or left thyroid nodules identified. Multiple small hypoechoic nodules are seen to the left thyroid measuring up to 2 mm, also likely reflecting colloid cyst. IMPRESSION: 1. Diffusely heterogeneous thyroid parenchyma without suspicious thyroid nodules identified. 2. 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 The above report was generated using voice recognition software. It may contain grammatical, syntax or spelling errors. Electronically signed by: Jonah Marcelo M.D. 07/07/2017 9:51 AM Dictated Date/Time: 07/07/2017 9:48 AM
[2017-07-07] MEDS ORDERED: METOPROLOL TARTRATE 25 MG TAB PO ONE (13:00)
[2017-07-07] MEDS: TRAMADOL HCL 50 MG TAB PO PRN (14:49)
[2017-07-07 15:02] LABS: CKMB 1.2 ng/ml (0.5-3.6)
--- NOTE | 2017-07-07 15:43 | Cardiology Consultation ---
Cardiology Consultation Date of Consultation: Jul 07, 2017. Requesting Physician: Mary Reason for Consultation: AF Pt evaluation today including: conversation w/ patient, conversation w/ family , physical exam, chart review, lab review, review of studies, review of inpatient medication list History of Present Illness The patient is a 76-year-old woman with a history of atrial fibrillation who experienced the acute onset of palpitations last evening. Patient states she was sleeping when this happened. She noticed a pounding in her chest and attempted to take her blood pressure. She could not initially get a good pulse reading in tried her 's blood pressure cuff which eventually reported a high heart rate. She did not describe dizziness or lightheadedness. She is not having symptoms of chest discomfort or dyspnea. Based on high heart rate our she is on medical attention in was evaluated at [facility] Emergency Room. There she was found have atrial fibrillation with rapid heart rate. The patient states that recently she has been feeling well. She has been performing her usual duties without any new limitations or symptoms. She has not had any subjective complaints of fevers or chills recently. She has not had any breathing difficulty. She is fairly sedentary but is not limited by dyspnea on exertion. She has no symptoms of chest pain. She is generally not aware of any palpitations. She perhaps has a fleeting palpitation but no prolonged episodes. He has not been having symptoms of dizziness or lightheadedness. She has not suffered any recent syncope. Past Medical/Surgical History Atrial fibrillation, admitted in March 2000 17 Diabetes mellitus Gout Hiatal hernia Hypertension Anemia Kidney stones Past surgical history Cholecystectomy Hand surgery Family History Patient reports no known family medical history. Noncontributory given her advanced age Social History Smoking Status: Never Smoker History of Alcohol Use: No Currently lives at home with her Review of Systems Per HPI All Other Systems: Reviewed and Negative Allergies Coded Allergies: Hydrocodone (Verified Allergy, Mild, UNKNOWN "HAPPENED LONG TIME AGO", ) Phenol (Verified Allergy, Unknown, LOCALIZED RASH AT INJECTION SITE, ) Protamine (Verified Allergy, Unknown, LOCALIZED RASH AT INJECTION SITE, ) Sodium Phosphate (Verified Allergy, Unknown, LOCALIZED RASH AT INJECTION SITE, 07/07/17) Zinc (Verified Allergy, Unknown, LOCALIZED RASH AT INJECTION SITE, 07/07/17 ) Hydroxychloroquine (Verified Adverse Reaction, Unknown, "BURPED FOR DAYS AND TORE MY STOMACH UP", 07/07/17) Medications Current Inpatient Medications Medications (Trade) Dose Ordered Sig/Neil Route Start Time Stop Time Status Last Admin Dose Admin Acetaminophen (Tylenol Tab) 650 mg Q4H PRN PO 07/07/17 06:30 08/06/17 06:29 Nitroglycerin (Nitrostat Tab) 0.4 mg UD PRN SL 07/07/17 06:30 08/06/17 06:29 Ondansetron HCl (Zofran Odt) 8 mg Q6H PRN PO 07/07/17 06:30 08/06/17 06:29 Insulin Aspart (novoLOG ASPART) SLIDING SCALE If C... ACHS SC 07/07/17 07:00 08/06/17 06:59 07/07/17 13:17 4 UNITS Glucose (Glucose 40% Gel) 15-30 GRAMS 15 GRAMS... UD PRN PO 07/07/17 06:30 08/06/17 06:29 Glucose (Glucose Chew Tab) 4-8 Tablets 4 Tabl... UD PRN PO 07/07/17 06:30 08/06/17 06:29 Dextrose (Dextrose 50% 50ML Syringe) 25-50ML OF 50% DW IV FOR... UD PRN IV 07/07/17 06:30 08/06/17 06:29 Glucagon (Glucagon Inj) 1 mg UD PRN SQ 07/07/17 06:30 08/06/17 06:29 Allopurinol (Zyloprim Tab) 300 mg QAM PO 07/07/17 09:00 08/06/17 08:59 07/07/17 09:07 300 MG Clotrimazole (Clotrimazole Vag Crm) 1 appln BID PRN PV 07/07/17 06:45 07/14/17 06:44 Diltiazem HCl (TIAzac CAP) 120 mg QAM PO 07/07/17 09:00 08/06/17 08:59 07/07/17 09:07 120 MG Ferrous Gluconate (Ferrous Gluconate Tab) 324 mg BID PO 07/07/17 09:00 08/06/17 08:59 07/07/17 09:07 324 MG Furosemide (Lasix Tab) 40 mg QPM PO 07/07/17 21:00 08/06/17 20:59 Furosemide (Lasix Tab) 80 mg QAM PO 07/07/17 09:00 08/06/17 08:59 07/07/17 09:08 80 MG Miscellaneous Information (Order Awaiting Action) 1 ea QS N/A 07/07/17 08:00 08/06/17 07:59 Insulin Glargine (Lantus Solostar Pen) 20 units QPM SC 07/07/17 21:00 08/06/17 20:59 Insulin Glargine (Lantus Solostar Pen) 50 units QAM SC 07/07/17 09:00 08/06/17 08:59 07/07/17 09:11 50 UNITS Lorazepam (Ativan Tab) 1 mg Q8 PRN PO 07/07/17 06:45 08/06/17 06:44 Potassium Citrate (Urocit-K Tab) 30 meq BID PO 07/07/17 09:00 08/06/17 08:59 07/07/17 09:06 30 MEQ Tramadol HCl (Ultram Tab) 50 mg Q6H PRN PO 07/07/17 06:45 08/06/17 06:44 07/07/17 14:49 50 MG Pantoprazole Sodium (Protonix Tab) 40 mg QAM PO 07/07/17 09:00 08/06/17 08:59 07/07/17 09:06 40 MG Metoprolol Tartrate (Lopressor Tab) 100 mg BID PO 07/07/17 21:00 08/06/17 08:59 Physical Exam Vital Signs Past 12 Hours Date Time Temp Pulse Resp B/P (MAP) Pulse Ox O2 Delivery O2 Flow Rate FiO2 07/07/17 14:47 36.8 88 20 110/66 (81) 94 Room Air 07/07/17 14:42 37.0 106 20 124/87 94 Room Air 07/07/17 12:00 95 Room Air 07/07/17 11:36 37.0 106 20 124/87 (99) 95 Room Air 07/07/17 10:03 122 122/64 07/07/17 07:31 36.9 121 18 134/94 (107) 94 Room Air 07/07/17 06:30 128 20 12/86 95 07/07/17 05:58 120 20 122/82 97 07/07/17 05:30 117 20 133/92 96 Room Air 07/07/17 05:13 122 126/107 07/07/17 05:00 115 20 126/107 95 07/07/17 04:53 115 20 124/94 95 07/07/17 04:47 130 116/90 07/07/17 04:43 123 20 127/82 96 07/07/17 04:41 140 07/07/17 04:35 135 137/83 07/07/17 04:21 97 Room Air 07/07/17 04:11 36.7 120 20 139/78 97 Room Air The patient is alert and oriented. Mood and affect appeared normal. He answered all questions appropriately. HEENT: Pupils are equal and reactive to light and accommodation. Extraocular movements are intact. The sclerae are anicteric. Neuro: Cranial nerves intact Neck: Patient's neck is supple. He has palpable carotid pulses bilaterally without bruits on auscultation. There is no evidence of jugular venous distention. The thyroid is not enlarged. Lungs: Clear to auscultation bilaterally. He has good air movement without use of accessory muscles. No rales wheezes or rhonchi. Cardiac: Heart demonstrates an irregular rate and rhythm. Normal S1 and S2. No murmurs on examination. Pulses: The patient has palpable radial pulses bilaterally that are equal in intensity Extremities: There was no evidence of hypoperfusion. There is no cyanosis or clubbing. There is no edema. Skin: I did not appreciate any rashes on examination today. Data Laboratory Results: Last 24 Hours Test 07/07/17 04:20 07/07/17 08:39 07/07/17 14:25 White Blood Count 5.87 K/uL Red Blood Count 3.56 M/uL Hemoglobin 11.2 g/dL Hematocrit 35.3 % Mean Corpuscular Volume 99.2 fL Mean Corpuscular Hemoglobin 31.5 pg Mean Corpuscular Hemoglobin Concent 31.7 g/dl Platelet Count 155 K/uL Mean Platelet Volume 11.2 fL Neutrophils (%) (Auto) 58.5 % Lymphocytes (%) (Auto) 28.3 % Monocytes (%) (Auto) 9.9 % Eosinophils (%) (Auto) 2.7 % Basophils (%) (Auto) 0.3 % Neutrophils # (Auto) 3.43 K/uL Lymphocytes # (Auto) 1.66 K/uL Monocytes # (Auto) 0.58 K/uL Eosinophils # (Auto) 0.16 K/uL Basophils # (Auto) 0.02 K/uL RDW Standard Deviation 72.4 fL RDW Coefficient of Variation 20.2 % Immature Granulocyte % (Auto) 0.3 % Immature Granulocyte # (Auto) 0.02 K/uL Large Platelets 1+ Anisocytosis PRESENT Tear Drop Cells OCCASIONAL Ovalocytes 1+ Sodium Level 137 mmol/L Potassium Level 3.6 mmol/L Chloride Level 100 mmol/L Carbon Dioxide Level 29 mmol/L Anion Gap 8.0 mmol/L Blood Urea Nitrogen 20 mg/dl Creatinine 1.49 mg/dl Est Creatinine Clear Calc Drug Dose 37.0 ml/min Estimated GFR () 39.7 Estimated GFR (Non- 34.2 BUN/Creatinine Ratio 13.3 Random Glucose 192 mg/dl Calcium Level 9.1 mg/dl Magnesium Level 1.9 mg/dl Troponin I < 0.015 ng/ml < 0.015 ng/ml Thyroid Stimulating Hormone (TSH) 0.211 uIu/ml Free Thyroxine 1.19 ng/dl Free Triiodothyronine 4.40 pg/ml Total Creatine Kinase 77 U/L Creatine Kinase MB 1.2 ng/ml Creatine Kinase MB Ratio 1.6 Imaging: Chest x-ray did not demonstrate any acute cardiopulmonary disease EKG: Atrial fibrillation with rapid ventricular response Telemetry reviewed: Atrial fibrillation Patient nuclear perfusion study performed in March 2017. No evidence of ischemia Patient had echocardiogram performed in March 2017: Normal LV systolic function. Aortic valve sclerosis without stenosis. Elevated pulmonary pressures. Assessment & Plan 1. Atrial fibrillation: We had hoped that her initial episode of atrial fibrillation was related to her acute illness at that time. However she now has another documented episode and is likely to have more. She notices the high heart rate but otherwise has few symptoms. In the sense it would seem most appropriate to adopt a rate control strategy. During her last hospitalization there was some difficulty in controlling her high rates. However, she currently appears to be responding quite well to an increased dose of beta- elvin. I think we can simply titrate her diltiazem beta-elvin according to heart rate and blood pressure and hopefully discharge her on a reasonable regimen for rate control. In the past she was on anticoagulation. However she did develop significant anemia and was suspected to have gastrointestinal hemorrhage. An outpatient evaluation did not reveal an obvious source and she has been placed on iron therapy. Hemoglobin is been stable but it seems premature to recommend re-initiation of anticoagulation at this point.
--- NOTE | 2017-07-07 17:39 | Progress Note ---
Progress Note Date of Service Jul 07, 2017. Progress Note seen in f/u from early AM admission feeling better just some palpitations HR ipmroved through the day, visited twice, checked monitor multiple times, reviewed w cardiology as well vitals noted nad breathing unlabored afib initially RVR now improving to better controlled rate afib RVR - improving w increase in beta elvin. was apparently quite difficult to control last time so will follow through the night to make sure improved rate stays; will need to revisit risks/benefits of anticoagulation in near future as outpt since GI bleeding seems to be remote issue abnormal thyroid function tests - uncertain significance - not clearly hyperthyroid given only sl low TSH and normal free T4, but with elevated T3 ( and technically low TSH) will need f/u testing ~4wks DM - sugars reasonable continue current insulins DVT proph - ambulation
[2017-07-07] MEDS: METOPROLOL TARTRATE 100 MG TAB PO SCH (20:37)
[2017-07-07] MEDS ORDERED: INSULIN GLARGINE SOLOSTAR 100 UNITS/ML 3 ML PEN SC SCH (21:00)
[2017-07-07] MEDS ORDERED: FUROSEMIDE 40 MG TAB PO SCH (21:00)
[2017-07-07 23:03] LABS: CKMB 1.3 ng/ml (0.5-3.6)
[2017-07-08 03:49] VITALS: BP 114/70; PULSE 108; TEMP 36.9; O2SAT 98
[2017-07-08] MEDS: TRAMADOL HCL 50 MG TAB PO PRN (05:15)
--- NOTE | 2017-07-08 06:54 | Clinical Documentation Query ---
CLINICAL DOCUMENTATION QUERY 76 year old female who presents to the Emergency Room in Afib RVR. In your clinical opinion is this patient being managed for: ( ) Chronic diastolic (preserved EF) CHF maintained on PO Lasix ( ) Not Agree ( ) Other explanation of clinical findings (Please Explain) ( ) Unable to determine (Please Define) ( ) Need to Discuss The medical record reflects the following clinical findings, treatment, and risk factors. Clinical Indicators: Per cardiology echocardiogram performed in March 2017: Normal LV systolic function. Aortic valve sclerosis without stenosis. Elevated pulmonary pressures. Treatment: Lasix, I/O's, daily weights. Risk Factors: Age, HTN, CKD, Afib, Please clarify and document your clinical opinion in the progress notes and discharge summary. Terms such as "probable", "suspected", "likely", "questionable", "possible", or "still to be ruled out" are acceptable. IF IN AGREEMENT, YOU MUST DOCUMENT ABOVE DIAGNOSTIC STATEMENT IN DAILY PROGRESS NOTES AND DISCHARGE SUMMARY. This document is not part of the patient's record. Thank You, Ceferino Duncan, RN [phone]
--- NOTE | 2017-07-08 06:56 | Clinical Documentation Query ---
CLINICAL DOCUMENTATION QUERY 76 year old female who presents to the Emergency Room in Afib RVR. Query #1/2 In your clinical opinion is this patient being managed for: ( ) Chronic diastolic (preserved EF) CHF maintained on PO Lasix ( ) Not Agree ( ) Other explanation of clinical findings (Please Explain) ( ) Unable to determine (Please Define) ( ) Need to Discuss The medical record reflects the following clinical findings, treatment, and risk factors. Clinical Indicators: Per cardiology echocardiogram performed in March 2017: Normal LV systolic function. Aortic valve sclerosis without stenosis. Elevated pulmonary pressures. Treatment: Lasix, I/O's, daily weights. Risk Factors: Age, HTN, CKD, Afib, Query #2/2 In your clinical opinion is this patient being managed for: ( ) CKD stage 3 ( ) Not Agree ( ) Other explanation of clinical findings (Please Explain) ( ) Unable to determine (Please Define) ( ) Need to Discuss The medical record reflects the following clinical findings, treatment, and risk factors. Clinical Indicators: BUN 20, Creatinine 1.49, GFR 34.2, Treatment: daily PRP's, Lopressor, Diltiazem, IVF bolus Risk Factors: Age, HTN, diuretic therapy, Please clarify and document your clinical opinion in the progress notes and discharge summary. Terms such as "probable", "suspected", "likely", "questionable", "possible", or "still to be ruled out" are acceptable. IF IN AGREEMENT, YOU MUST DOCUMENT ABOVE DIAGNOSTIC STATEMENT IN DAILY PROGRESS NOTES AND DISCHARGE SUMMARY. This document is not part of the patient's record. Thank You, Ceferino Duncan, ERNESTINA [phone]
[2017-07-08 07:10] VITALS: BP 130/91; PULSE 78; TEMP 36.5; O2SAT 95
[2017-07-08 08:00] VITALS: O2SAT 95
[2017-07-08 08:19] LABS: BASO % 0.2 %; BASO ABS # 0.01 K/uL (0-0.2); EOS % 3.7 %; EOS ABS # 0.21 K/uL (0-0.5); HEMATOCRIT 38.1 % (37-47); HEMOGLOBIN 12.3 g/dL (12.0-16.0); IG# 0.01 K/uL (0.00-0.02); LYMPH % 32.3 %; LYMPH ABS # 1.82 K/uL (1.2-3.4); MEAN CELL VOLUME 99.7 fL (80-100); MEAN CORPUSCULAR HEMOGLOBIN 32.2 pg (25-34); MEAN CORPUSCULAR HGB CONC 32.3 g/dl (32-36); MEAN PLATELET VOLUME 12.9 fL (7.4-10.4); MONO % 10.1 %; MONO ABS # 0.57 K/uL (0.11-0.59); NEUT % 53.5 %; NEUT ABS # 3.02 K/uL (1.4-6.5); PLATELET COUNT 188 K/uL (130-400); RED CELL DISTRIBUTION WIDTH CV 20.2 % (11.5-14.5); RED CELL DISTRIBUTION WIDTH SD 74.2 fL (36.4-46.3); WHITE BLOOD COUNT 5.64 K/uL (4.8-10.8)
[2017-07-08 08:27] LABS: PTT PATIENT 24.8 SECONDS (21.0-31.0)
[2017-07-08 08:44] LABS: CALCIUM 9.7 mg/dl (8.5-10.1); CREATININE 1.51 mg/dl (0.60-1.20)
[2017-07-08] MEDS: ALLOPURINOL 300 MG TAB PO SCH (09:01)
[2017-07-08] MEDS: PANTOprazole SOD 40 MG TAB PO SCH (09:01)
[2017-07-08] MEDS: FUROSEMIDE 40 MG TAB PO SCH (09:02)
[2017-07-08] MEDS: METOPROLOL TARTRATE 100 MG TAB PO SCH (09:02)
[2017-07-08] MEDS: DILTIAZEM HCL 120 MG EXT REL CAP PO SCH (09:03)
[2017-07-08] MEDS: POTASSIUM CITRATE 10 MEQ TAB PO SCH (09:03)
[2017-07-08] MEDS: INSULIN ASPART 100 UNITS/ML 3 ML PEN SC SCH (09:07)
[2017-07-08] MEDS: INSULIN GLARGINE SOLOSTAR 100 UNITS/ML 3 ML PEN SC SCH (09:08)
--- NOTE | 2017-07-08 09:25 | Cardiology Follow-Up ---
Subjective Date of Service: Jul 08, 2017. Pt evaluation today including: conversation w/ patient, physical exam, chart review, lab review, review of studies, review of inpatient medication list History of Present Illness This morning the patient claims to be feeling well. She is anxious to go home. She has been ambulatory around the room without symptoms of dizziness, shortness of breath or chest discomfort. She is minimally aware of any palpitations. She is under take her pulse and until that there is some irregularity. No symptoms at rest. Social History Smoking Status: Never Smoker History of Alcohol Use: No Review of Systems Per HPI Objective Vital Signs Past 12 Hours Date Time Temp Pulse Resp B/P (MAP) Pulse Ox O2 Delivery O2 Flow Rate FiO2 07/08/17 07:10 36.5 78 16 130/91 (104) 95 Room Air 07/08/17 04:00 Room Air 07/08/17 03:49 36.9 108 18 114/70 (85) 98 Room Air 07/08/17 00:00 Room Air 07/07/17 23:12 36.9 90 18 111/66 (81) 96 Room Air Last Recorded Weight-Kilograms: 99.900 Physical Exam The patient is alert and oriented. Mood and affect appeared normal. He answered all questions appropriately. HEENT: Pupils are equal and reactive to light and accommodation. Extraocular movements are intact. The sclerae are anicteric. Neuro: Cranial nerves intact Neck: Patient's neck is supple. He has palpable carotid pulses bilaterally without bruits on auscultation. There is no evidence of jugular venous distention. The thyroid is not enlarged. Lungs: Clear to auscultation bilaterally. He has good air movement without use of accessory muscles. No rales wheezes or rhonchi. Cardiac: Heart demonstrates an irregular rate and rhythm. Normal S1 and S2. No murmurs on examination. Pulses: The patient has palpable radial pulses bilaterally that are equal in intensity Extremities: There was no evidence of hypoperfusion. There is no cyanosis or clubbing. There is no edema. Skin: I did not appreciate any rashes on examination today. Data Laboratory Results: Last 24 Hours Test 07/07/17 11:27 07/07/17 14:25 07/07/17 16:32 07/07/17 20:14 Bedside Glucose 172 mg/dl 166 mg/dl 159 mg/dl Total Creatine Kinase 77 U/L Creatine Kinase MB 1.2 ng/ml Creatine Kinase MB Ratio 1.6 Troponin I < 0.015 ng/ml Test 07/07/17 22:26 07/08/17 07:41 07/08/17 07:59 Total Creatine Kinase 89 U/L Creatine Kinase MB 1.3 ng/ml Creatine Kinase MB Ratio 1.5 Troponin I < 0.015 ng/ml Bedside Glucose 143 mg/dl White Blood Count 5.64 K/uL Red Blood Count 3.82 M/uL Hemoglobin 12.3 g/dL Hematocrit 38.1 % Mean Corpuscular Volume 99.7 fL Mean Corpuscular Hemoglobin 32.2 pg Mean Corpuscular Hemoglobin Concent 32.3 g/dl Platelet Count 188 K/uL Mean Platelet Volume 12.9 fL Neutrophils (%) (Auto) 53.5 % Lymphocytes (%) (Auto) 32.3 % Monocytes (%) (Auto) 10.1 % Eosinophils (%) (Auto) 3.7 % Basophils (%) (Auto) 0.2 % Neutrophils # (Auto) 3.02 K/uL Lymphocytes # (Auto) 1.82 K/uL Monocytes # (Auto) 0.57 K/uL Eosinophils # (Auto) 0.21 K/uL Basophils # (Auto) 0.01 K/uL RDW Standard Deviation 74.2 fL RDW Coefficient of Variation 20.2 % Immature Granulocyte % (Auto) 0.2 % Immature Granulocyte # (Auto) 0.01 K/uL Large Platelets 1+ Anisocytosis PRESENT Tear Drop Cells 1+ Prothrombin Time 10.3 SECONDS Prothromb Time International Ratio 1.0 Activated Partial Thromboplast Time 24.8 SECONDS Partial Thromboplastin Ratio 1.0 Sodium Level 137 mmol/L Potassium Level 4.0 mmol/L Chloride Level 100 mmol/L Carbon Dioxide Level 29 mmol/L Anion Gap 8.0 mmol/L Blood Urea Nitrogen 22 mg/dl Creatinine 1.51 mg/dl Est Creatinine Clear Calc Drug Dose 36.1 ml/min Estimated GFR () 39.1 Estimated GFR (Non- 33.7 BUN/Creatinine Ratio 14.8 Random Glucose 155 mg/dl Calcium Level 9.7 mg/dl Magnesium Level 2.1 mg/dl Telemetry reviewed: Atrial fibrillation Assessment and Plan 1. Atrial fibrillation: The patient her metoprolol dose doubled yesterday. This seems to have had a considerable effect. While her rates are much improved I suspect that over the next few days at the higher dose we will see an even better response. She has no discernible symptoms. I think at this point if she continues to have reasonable rate control with activity she could be discharged with outpatient follow-up. She is not appear to have any adverse side effects from higher dose of metoprolol so far. In the past she has converted on her own. I suspect she will in fact convert at some point and may continue to cycle in and out of atrial fibrillation over time. We did address anticoagulation yesterday and I discussed this with her again today. Given her anemia and possible GI blood loss, we have deferred anticoagulation until she can be re-evaluated by her electrochemist.
[2017-07-08] MEDS ORDERED: LPR100 PO (10:08)
[2017-07-08] MEDS ORDERED: DILT-113 PO (10:08)
--- NOTE | 2017-07-08 10:18 | Discharge Instructions ---
Discharge Instructions Date of Service Jul 08, 2017. Admission Reason for Admission: Atrial Fib W/ Rvr Discharge Discharge Diagnosis / Problem: atrial fibrillation with rapid heart rate Discharge Goals Goal(s): Diagnostic testing, Therapeutic intervention Activity Recommendations Activity Limitations: resume your previous activity (take it easy until Dr Darian Freedman has seen ongoing improvement in your heart rate) . Instructions / Follow-Up Instructions / Follow-Up atrial fibrillation -as we discussed, this is a rapid, irregular beating of your heart -typically what happens is as we age, the conduction system ("wiring") in the top part of our heart breaks down - allowing the electricity to go erratically through the atria. the electricity then still goes through the ventricles ( bottom, main pumping chambers) appropriately - but because the top part is more of an erratic "electrical storm" the electricity hits the ventricles fast and irregularly. typically the AV node ("breaker box") is able to slow how much of that electricity gets through, but at times the electricity is able to get through fast enough to cause the rapid heart rate you were experiencing. -for most people, rate control is the main goal - it's a rare person (10% or less) that actually requires maintenance of a regular rhythm to manage their afib. further, the methods we have to use to try to force a regular rhythm are usually more toxic and invasive, so they create more harm. fortunately for you , you don't show any of the reasons to have to force a regular rhythm - the main game plan is controlling the rate -to that end, we've increased your metoprolol to 100mg twice a day, and since that's showing good improvement but [id number], we're also increasing your diltiazem from 120mg to 180mg once a day. this should continue to bring rates in line. over time, Dr Osorio will continue to adjust meds to keep the rates good. if you feel weak/lightheaded/dizzy, then the concern would be if the meds are "working too well" and causing slow/low heart rates. if you start to feel like that (weak, dizzy, like you're going to faint) then we 'd want you to check your pulse and call for guidance right away. -while it appears that your afib was just "acting up" because afib has a tendency to do that from time to time, the less likely concern was that sometimes afib is provoked by other causes -- which is where Dr Morrison suggested you space apart when you take your iron so that it doesn't interfere with absorption of other meds, and why we checked thyroid labwork -- the thyroid labwork was abnormal, but in a way that suggests that it was just "off" from the stress on your body from the afib. to prove this we'll want to have thyroid labs rechecked in about a month blood thinner -as we calculated, you run about a 6% risk per year of having a stroke related to the afib. while not astronomically high, this does have a cumulative effect over time. since you had the prior GI bleed, we'll want Dr Osorio to review your overall risk of re-bleeding, but likely it makes sense to start a blood thinner in the near future to protect you from stroke. most of the time, strokes from afib are catastrophic life-changing events; bleeds, while scary at the time, are often more of a temporary problem that can be stabilized without nearly as much mcfp consequence. discuss this further at your follow up appointments Current Hospital Diet Patient's current hospital diet: AHA Diet (Heart Healthy), Diabetes Type 2 Diet Discharge Diet Recommended Diet: AHA Diet (Heart Healthy), Diabetes Type 2 Diet Pending Studies Studies pending at discharge: no Medical Emergencies . Who to Call and When: Medical Emergencies: If at any time you feel your situation is an emergency, please call 911 immediately. . Non-Emergent Contact Non-Emergency issues call your: Primary Care Provider (Dr Darian Cardenas - ideally we'd like you to see him on Thursday) . . "Provider Documentation" section prepared by Yousuf Hernandez. . VTE Core Measure Inpt VTE Proph given/why not?: SCD's
[2017-07-08 10:33] VITALS: BP 130/91; PULSE 78; TEMP 36.5; O2SAT 95
--- NOTE | 2017-07-08 13:38 | Discharge Summary ---
Discharge Summary Date of Service Jul 08, 2017. Discharge Summary Admission Date: Jul 07, 2017 at 06:27 Discharge Date: Jul 08, 2017 Discharge Disposition: Home Principal Diagnosis: afib, RVR Immunizations: Have You Had Influenza Vaccine: Unknown History of Tetanus Vaccine?: Unknown History of Pneumococcal: Unknown History of Hepatitis B Vaccine: Unknown Medication Reconciliation New Medications: Diltiazem Hcl Ext Rel (Tiazac) 180 Mg Capcr 180 MG PO DAILY, #30 CAP Metoprolol Tartrate (Metoprolol Tartrate) 100 Mg Tab 100 MG PO BID, #60 TAB Continued Medications: Allopurinol (Zyloprim) 300 Mg Tab 300 MG PO QAM Clotrimazole Vaginal (Clotrimazole) 1 % Cre 1 APPLN TD DIRECTED PRN for AFFECTED AREA Ferrous Gluconate (Iron Supplement) 324 Mg Tab 324 MG PO BID, TAB Furosemide (Lasix) 40 Mg Tab 40 MG PO QPM Furosemide (Lasix) 40 Mg Tab 80 MG PO QAM, TAB Hydrocortisone 1% (Hydrocortisone 1%) 90 Appln/30 Gm Cr 1 APPL TOP UD Insulin Glargine (Lantus Solostar) 100 Unit/Ml Inj 50 UNITS SC QAM, PEN Insulin Glargine (Lantus Solostar) 100 Unit/Ml Inj 20 UNITS SC QPM Lorazepam (Ativan) 1 Mg Tab 1 MG PO Q8 PRN for PANIC ATTACKS, TAB Potassium Citrate (Potassium Citrate) 10 Meq Tab 30 MEQ PO BID Prednisone (Prednisone) 5 Mg Tab 10 MG PO HS PRN for swelling, TAB Rabeprazole Sodium (Aciphex) 20 Mg Tab 20 MG PO QAM, TAB Tramadol (Ultram) 50 Mg Tab 50-100 MG PO Q4-6H PRN for Pain Discontinued Medications: Diltiazem Hcl Ext Rel (Tiazac) 120 Mg Capcr 120 MG PO QAM, CAP Metoprolol Tartrate (Lopressor) (Lopressor) 50 Mg Tab 50 MG PO BID Discharge Exam Physical Exam: General Appearance: no apparent distress Eyes: EOMI ENT: hearing grossly normal Neck: trachea midline Respiratory/Chest: no respiratory distress, no accessory muscle use Cardiovascular: + irregularly irregular (HR ~100 at rest) Neurologic/Psychiatric: tobacco grower II-XII nml as tested, alert, normal mood/affect Hospital Course afib RVR - improving w increase in beta elvin. safe to go home, rates still not optimal but stable/asymptomatic, so risk of ongoing hospitalization definitely higher -- ongoing outpt management appropriate. home on 100mg metoprolol BID, because rates still not optimal and BP elevated enough to support - also increase diltiazem from 120 to 180mg daily. discussed sx to watch far w high and low HR. f/u PCP 2 days. CHADS-Vasc definitely supports initiating anticoagulation, she is in favor of this as well and understands that bleed risk is real, but would prefer to accept this risk than to have a stroke. however, she does not recall what her source of bleed was, or what her rebleed risk may be - so since seeing PCP in short order, will defer initiation of anticoagulation at this time, but anticipate initiation in near future unless GI bleed risk is very high. abnormal thyroid function tests - uncertain significance - not clearly hyperthyroid given only sl low TSH and normal free T4, but with elevated T3 ( and technically low TSH) will need f/u testing ~4wks DM - sugars reasonable continue home meds DVT proph - ambulation stable for home Total Time Spent: Greater than 30 minutes This includes examination of the patient, discharge planning, medication reconciliation, and communication with other providers. Discharge Instructions Please refer to the electronic Patient Visit Report (Discharge Instructions) for additional information. Follow-Up PCP 2 days Additional Copies To Marito Shepprad M.D.
== END 2017-07-08 11:58 | disposition home or self-care (01) | DRG 310 ==
LOC: C.EDB 04:08 → C.MED 06:27 → ENRESERV 06:48
PROVIDERS: ADMIT Hospitalist; ATTEND Hospitalist
DX: I48.91 Unspecified atrial fibrillation (principal); R94.6 Abnormal results of thyroid function studies; E11.9 Type 2 diabetes mellitus without complications; K21.9 Gastro-esophageal reflux disease without esophagitis; M10.9 Gout, unspecified; D64.9 Anemia, unspecified; I11.9 Hypertensive heart disease without heart failure; Z79.899 Other long term (current) drug therapy; Z79.4 Long term (current) use of insulin; Z87.19 Personal history of other diseases of the digestive system; Z85.3 Personal history of malignant neoplasm of breast; Z92.3 Personal history of irradiation; Z87.440 Personal history of urinary (tract) infections

== ENCOUNTER → 2017-07-21 | Outpatient (CLI) | payer OTHER ==
[~2017-07-21] MED LIST changes: +DILT-113 PO; -DILT120C68 PO; +FERR324T PO; +LPR100 PO; -METO50TA16 PO; -RIVA1.5T PO
[2017-07-21 19:09] LABS: BASO % 0.2 %; BASO ABS # 0.01 K/uL (0-0.2); EOS % 2.4 %; EOS ABS # 0.13 K/uL (0-0.5); HEMATOCRIT 30.3 % (37-47); HEMOGLOBIN 9.6 g/dL (12.0-16.0); IG# 0.01 K/uL (0.00-0.02); LYMPH % 29.1 %; LYMPH ABS # 1.57 K/uL (1.2-3.4); MEAN CELL VOLUME 99.7 fL (80-100); MEAN CORPUSCULAR HEMOGLOBIN 31.6 pg (25-34); MEAN CORPUSCULAR HGB CONC 31.7 g/dl (32-36); MEAN PLATELET VOLUME 12.6 fL (7.4-10.4); MONO % 13.4 %; MONO ABS # 0.72 K/uL (0.11-0.59); NEUT % 54.7 %; NEUT ABS # 2.95 K/uL (1.4-6.5); PLATELET COUNT 189 K/uL (130-400); RED CELL DISTRIBUTION WIDTH CV 19.8 % (11.5-14.5); RED CELL DISTRIBUTION WIDTH SD 72.4 fL (36.4-46.3); WHITE BLOOD COUNT 5.39 K/uL (4.8-10.8)
== END | disposition home or self-care (01) ==
LOC: C.LABSPEC 17:50
PROVIDERS: ATTEND Internal Medicine
DX: D64.9 Anemia, unspecified (principal)

== ENCOUNTER → 2017-07-24 | Outpatient (CLI) | payer OTHER ==
[2017-07-24 13:53] LABS: BASO % 0.2 %; BASO ABS # 0.01 K/uL (0-0.2); EOS % 2.2 %; EOS ABS # 0.11 K/uL (0-0.5); HEMATOCRIT 32.4 % (37-47); HEMOGLOBIN 10.2 g/dL (12.0-16.0); IG# 0.01 K/uL (0.00-0.02); LYMPH % 25.1 %; LYMPH ABS # 1.26 K/uL (1.2-3.4); MEAN CELL VOLUME 100.3 fL (80-100); MEAN CORPUSCULAR HEMOGLOBIN 31.6 pg (25-34); MEAN CORPUSCULAR HGB CONC 31.5 g/dl (32-36); MEAN PLATELET VOLUME 12.3 fL (7.4-10.4); MONO % 12.8 %; MONO ABS # 0.64 K/uL (0.11-0.59); NEUT % 59.5 %; NEUT ABS # 2.98 K/uL (1.4-6.5); PLATELET COUNT 213 K/uL (130-400); RED CELL DISTRIBUTION WIDTH CV 19.1 % (11.5-14.5); WHITE BLOOD COUNT 5.01 K/uL (4.8-10.8)
== END | disposition home or self-care (01) ==
LOC: C.LABSPEC 13:15
PROVIDERS: ATTEND Internal Medicine
DX: D50.9 Iron deficiency anemia, unspecified (principal)

== ENCOUNTER → 2017-07-31 | Outpatient (CLI) | payer OTHER ==
--- NOTE | 2017-07-31 14:57 | MAMMOGRAPHY REPORT ---
BILATERAL DIGITAL SCREENING MAMMOGRAM TOMOSYNTHESIS WITH CAD: 07/31/2017 CLINICAL HISTORY: Asymptomatic. Personal history of breast cancer. TECHNIQUE: Breast tomosynthesis in addition to standard 2D mammography was performed. Current study was also evaluated with a Computer Aided Detection (CAD) system. COMPARISON: Comparison is made to exams dated: 07/29/2016 mammogram, 07/27/2015 mammogram, 07/21/2014 ma mmogram, 07/05/2013 mammogram, 07/02/2012 mammogram, and 09/29/2011 mammogram - [facility] nter. BREAST COMPOSITION: There are scattered areas of fibroglandular density in both breasts. FINDINGS: No suspicious masses, calcifications, or areas of architectural distortion are noted in ei ther breast. There has been no significant interval change compared to prior exams. There are stable postsurgical changes in the left breast from prior lumpectomy. Again noted is diffuse left breast s kin thickening, likely related to prior radiation therapy. Scattered bilateral benign appearing calc ifications are not significantly changed. Intramammary lymph node in the right upper outer quadrant is stable dating back to 2007. IMPRESSION: ACR BI-RADS CATEGORY 2: BENIGN There is no mammographic evidence of malignancy. A 1 year screening mammogram is recommended. The pa tient will receive written notification of the results. Approximately 10% of breast cancers are not detected with mammography. A negative mammographic report should not delay biopsy if a clinically suggestive mass is present. Kym Antonio M.D. /:07/31/2017 14:13:38 Bench Repair Technician: Amena SINGLETARY(Mike)(Tavia), [facility] letter sent: Normal 1/2 BI-RADS Code: ACR BI-RADS Category 2: Benign
== END | disposition home or self-care (01) ==
LOC: C.MAMM 10:22
PROVIDERS: ATTEND Internal Medicine
DX: Z12.31 Encounter for screening mammogram for malignant neoplasm of breast (principal); Z85.3 Personal history of malignant neoplasm of breast

== ENCOUNTER → 2017-08-06 | Outpatient (CLI) | payer OTHER ==
[2017-08-06 19:33] LABS: BLOOD UREA NITROGEN 18 mg/dl (7-18); CALCIUM 8.9 mg/dl (8.5-10.1); CARBON DIOXIDE 29 mmol/L (21-32); CREATININE 1.57 mg/dl (0.60-1.20); GLUCOSE 259 mg/dl (70-99); POTASSIUM 3.7 mmol/L (3.5-5.1); SODIUM 138 mmol/L (136-145)
== END | disposition home or self-care (01) ==
LOC: C.LABSPEC 18:09
PROVIDERS: ATTEND Internal Medicine
DX: I50.9 Heart failure, unspecified (principal)

== ENCOUNTER → 2017-08-13 | Outpatient (CLI) | payer OTHER ==
[2017-08-13 18:35] LABS: BLOOD UREA NITROGEN 63 mg/dl (7-18); CALCIUM 9.4 mg/dl (8.5-10.1); CARBON DIOXIDE 35 mmol/L (21-32); GLUCOSE 441 mg/dl (70-99); POTASSIUM 2.6 mmol/L (3.5-5.1); SODIUM 129 mmol/L (136-145)
== END | disposition home or self-care (01) ==
LOC: C.LABSPEC 17:51
PROVIDERS: ATTEND Internal Medicine
DX: I50.9 Heart failure, unspecified (principal)

== ENCOUNTER → 2017-08-17 | Outpatient (CLI) | payer OTHER ==
[2017-08-17 15:25] LABS: BLOOD UREA NITROGEN 57 mg/dl (7-18); CALCIUM 9.3 mg/dl (8.5-10.1); CARBON DIOXIDE 32 mmol/L (21-32); CREATININE 1.82 mg/dl (0.60-1.20); GLUCOSE 259 mg/dl (70-99); POTASSIUM 4.4 mmol/L (3.5-5.1); SODIUM 132 mmol/L (136-145)
== END | disposition home or self-care (01) ==
LOC: C.LABSPEC 14:48
PROVIDERS: ATTEND Internal Medicine
DX: E87.6 Hypokalemia (principal)

== ENCOUNTER → 2017-08-27 | Outpatient (CLI) | payer OTHER ==
[2017-08-27 15:48] LABS: HEMATOCRIT 33.7 % (37-47); MEAN CELL VOLUME 101.2 fL (80-100); MEAN CORPUSCULAR HGB CONC 32.6 g/dl (32-36); MEAN PLATELET VOLUME 12.7 fL (7.4-10.4); PLATELET COUNT 152 K/uL (130-400); RED CELL DISTRIBUTION WIDTH SD 66.4 fL (36.4-46.3); WHITE BLOOD COUNT 4.48 K/uL (4.8-10.8)
[2017-08-27 16:01] LABS: BLOOD UREA NITROGEN 25 mg/dl (7-18); CARBON DIOXIDE 31 mmol/L (21-32); GLUCOSE 263 mg/dl (70-99); POTASSIUM 3.9 mmol/L (3.5-5.1); SODIUM 137 mmol/L (136-145)
== END | disposition home or self-care (01) ==
LOC: C.LABSPEC 14:23
PROVIDERS: ATTEND Internal Medicine
DX: D64.9 Anemia, unspecified (principal); I48.91 Unspecified atrial fibrillation; I50.9 Heart failure, unspecified

== ENCOUNTER → 2017-09-07 | Outpatient (CLI) | payer OTHER ==
[2017-09-07 18:16] LABS: BLOOD UREA NITROGEN 32 mg/dl (7-18); CALCIUM 8.9 mg/dl (8.5-10.1); CARBON DIOXIDE 32 mmol/L (21-32); CREATININE 1.81 mg/dl (0.60-1.20); GLUCOSE 322 mg/dl (70-99); POTASSIUM 3.7 mmol/L (3.5-5.1); SODIUM 135 mmol/L (136-145)
== END | disposition home or self-care (01) ==
LOC: C.LABSPEC 16:43
PROVIDERS: ATTEND Internal Medicine
DX: I48.91 Unspecified atrial fibrillation (principal); I50.9 Heart failure, unspecified

== ENCOUNTER → 2018-01-04 | Outpatient (CLI) | payer OTHER ==
[2018-01-04 14:36] LABS: BLOOD UREA NITROGEN 20 mg/dl (7-18); CARBON DIOXIDE 32 mmol/L (21-32); CHOLESTEROL 144 mg/dl (0-200); CREATININE 1.51 mg/dl (0.60-1.20); GLUCOSE 194 mg/dl (70-99); LDL CHOLESTEROL (DIRECT) 91 mg/dl; POTASSIUM 4.1 mmol/L (3.5-5.1); SODIUM 138 mmol/L (136-145)
[2018-01-05 06:37] LABS: HEMOGLOBIN A1C 9.7 % (4.5-5.6)
== END | disposition home or self-care (01) ==
LOC: C.LABSPEC 13:38
PROVIDERS: ATTEND Internal Medicine
DX: E11.65 Type 2 diabetes mellitus with hyperglycemia (principal); I11.0 Hypertensive heart disease with heart failure; I50.9 Heart failure, unspecified

== ENCOUNTER 2019-11-15 19:44 | Inpatient (IN) ==
[2019-11-15] MEDS ORDERED: SODIUM CHLORIDE 0.9% 500 ML IV SCH (20:15)
--- NOTE | 2019-11-15 20:19 | Emergency Department Note ---
Impression & Plan SOB (shortness of breath), Fatigue, Weakness, Anemia ED Provider Note NAME: ANA MOBLEY AGE: 79 SEX: F : 1940 ARRIVES VIA: Walk-In INFORMANT: [Patient] ED PROVIDER(S): [Ritesh Magallon MD] CHIEF COMPLAINT: Fatigue and weakness. HISTORY OF PRESENT ILLNESS: The patient is a 79-year-old female presents to the ED with complaints of weakness, exertional shortness of breath and fatigue. She feels lightheaded to stand. No syncope. No chest pain. No abdominal pain. No fever, cough or congestion. No urinary complaints. The patient was told by her doctors office after some blood work today that she was quite anemic, she was referred to the ED for a blood transfusion. The patient does have a history of GI bleeding, she is not currently on any blood thinners. Of note, the patient is taking [id number] iron. REVIEW OF SYSTEMS: See HPI for pertinent positives and negatives. A total of ten systems were reviewed and were otherwise negative. PMHx/PSHx: See Below SOCIAL HISTORY: See Below. PHYSICAL EXAM: GENERAL: Patient is in no acute distress. HEENT: No acute trauma, normocephalic atraumatic, mucous membranes moist, no nasal congestion, no scleral icterus. NECK: No stridor, no adenopathy, no meningismus, trachea is midline. LUNGS: Clear to auscultation bilaterally, no wheeze, no rhonchi, breath sounds equal. HEART: Irregular rhythm, 3/6 systolic murmur, normal rate ABDOMEN: Soft, nontender, bowel sounds positive, no hernias, no peritonitis. EXTREMITIES: No cyanosis, mild bilateral pedal edema, full range of motion of all the joints without pain or difficulty, no signs for acute trauma. NEUROLOGIC: Oriented x 3, no acute motor or sensory deficits, no focal weakness. SKIN: No rash, no jaundice, no diaphoresis. Rectal: Brown stool, heme-negative. DIFFERENTIAL DIAGNOSIS: Infection, dehydration, metabolic abnormality, GI bleed, hypo/hyperglycemia, electrolyte disturbance, anemia, hypoxia, cardiac sources, intracerebral event, toxicologic, neurologic, as well as other pathologies. EMERGENCY DEPARTMENT COURSE/PROCEDURES: ECG: Indication was shortness of breath. The EKG shows atrial fibrillation with some diffuse nonspecific ST change. Most of these ST changes appear lateral. The rate is 58. There are no PVCs. The QTc is 373. There is no ST elevation. Compared to an ECG from 08 July 2017, the nonspecific ST changes are new. Continuous Cardiac Monitoring: An order was placed for continuous cardiac monitoring. The monitor shows a rate of 51 with atrial fibrillation. Critical Care Note: I have personally spent greater than 46 minutes of critical care time in the direct management of this patient. This includes bedside care, interpretation of diagnostic studies, and testing, discussion with consultants, patient, and family members, and other required patient management activities. This 46 minutes is in excess of all separately billable procedures. MEDICAL DECISION MAKING: There is no leukocytosis. Hemoglobin is quite low at 5.6, the patient is severely anemic. There was a normal platelet count. No coagulopathy. There was some renal insufficiency but this appears baseline looking back at previous testing. No liver enzyme elevation. Chest film shows potential fluid overload versus changes from her body habitus. There was no pneumonia. BNP was elevated consistent with potential fluid overload. Blood type returned O+. EKG showed atrial fibrillation with some nonspecific ST change. Cardiac enzyme testing x1 is not consistent with acute cardiac injury. Rectal exam showed some brown stool, heme-negative. The patient presents with a month of fatigue. Her symptoms have been increasing. She has been short of breath. She is severely anemic and in need of a blood transfusion. She did consent to the transfusion, the appropriate paperwork was signed. The patient was ordered for 3 units of packed red blood cells, 1 unit was started here in the ED. The patient was placed on a Protonix drip after a Protonix bolus. This was given in case she was bleeding from the stomach. She received IV Benadryl and IV Tylenol as premedication before her blood transfusion. She was given a 500 cc saline bolus for hydration purposes. I talked to the patient about her findings, I spoke with case management. The on-call hospitalist has been consulted. Past Med/Surg History Medical History GI bleed Malignant neoplasm of central portion of female breast (Resolved 10/01/11) "Left breast pain Finding of a left breast mass Status post biopsy revealing infiltrating ductal carcinoma Status post partial mastectomy and sentinel lymph node biopsy Pathologic stage [id number] Estrogen receptor positive, progesterone receptor positive, HER-2/abelardo negative Status post completion of radiation therapy 04/08/2012 received 6120 cGy" Social History Feels Safe at Home: Yes Smoking Status: Never smoker Allergies Allergies Allergy/AdvReac Type Severity Reaction Status Date / Time hydrocodone Allergy Mild UNKNOWN Verified 11/15/19 21:18 "HAPPENED LONG TIME AGO" phenol Allergy Unknown LOCALIZED Verified 11/15/19 21:18 RASH AT INJECTION SITE protamine Allergy Unknown LOCALIZED Verified 11/15/19 21:18 RASH AT INJECTION SITE sodium phosphate Allergy Unknown LOCALIZED Verified 11/15/19 21:18 RASH AT INJECTION SITE zinc Allergy Unknown LOCALIZED Verified 11/15/19 21:18 RASH AT INJECTION SITE hydroxychloroquine AdvReac Unknown "BURPED Verified 11/15/19 21:18 FOR DAYS AND TORE MY STOMACH UP" Home Meds Home Medications Medication Instructions Recorded Confirmed allopurinol 300 mg PO DAILY 11/15/19 11/15/19 atorvastatin [Lipitor] 20 mg PO DAILY 11/15/19 11/15/19 bumetanide 2 mg PO BID 11/15/19 11/15/19 digoxin [Digox] 125 mcg PO DAILY 11/15/19 11/15/19 diltiazem HCl 240 mg PO DAILY 11/15/19 11/15/19 escitalopram oxalate [Lexapro] 10 mg PO DAILY 11/15/19 11/15/19 insulin asp prt-insulin aspart 60 unit SUBCUT QPM 11/15/19 11/15/19 [Novolog Mix 70-30FlexPen U-100] insulin asp prt-insulin aspart 100 unit SUBCUT QAM 11/15/19 11/15/19 [Novolog Mix 70-30FlexPen U-100] metoprolol tartrate [Lopressor] 50 mg PO BID 11/15/19 11/15/19 potassium chloride [Klor-Con 10] 30 meq PO BID 11/15/19 11/15/19 prednisone 5 mg PO DAILY 11/15/19 11/15/19 rabeprazole 20 mg PO DAILY 11/15/19 11/15/19 tramadol [Ultram] 50 mg PO Q6 PRN 11/15/19 11/15/19 Results & Data (ED) Vital Signs Vital Signs - 24 hr 11/15/19 19:56 11/15/19 20:35 11/15/19 22:06 Temperature 37.5 C Temperature Source Oral Pulse Rate 59 L Pulse Rate [Bilateral Apical] 51 L 60 Respiratory Rate 16 20 20 Respiratory Effort / Characteristics Non-Labored Spontaneous Respiratory Depth Normal Blood Pressure 129/55 L Blood Pressure [Right Arm] 129/51 L 111/55 L Blood Pressure Mean 79 Blood Pressure Mean [Right Arm] 77 73 Blood Pressure Position Sitting Pulse Oximetry 95 99 98 Oxygen Delivery Method Room Air Room Air Room Air Sepsis Recent Fever Within 48 Hours No Sepsis New/Unexplained Change in Mental Status No Sepsis Action Taken by Nursing No Action Required 11/15/19 22:17 11/15/19 22:33 11/15/19 22:48 Temperature 36.9 C 37 C 37 C Temperature Source Oral Oral Oral Pulse Rate 53 L 69 52 L Pulse Rate [Bilateral Apical] Respiratory Rate 20 20 20 Respiratory Effort / Characteristics Respiratory Depth Blood Pressure 111/55 L 157/64 H 148/57 H Blood Pressure [Right Arm] Blood Pressure Mean 73 95 87 Blood Pressure Mean [Right Arm] Blood Pressure Position Pulse Oximetry 96 97 Oxygen Delivery Method Sepsis Recent Fever Within 48 Hours Sepsis New/Unexplained Change in Mental Status Sepsis Action Taken by Nursing 11/15/19 23:14 11/15/19 23:23 Temperature Temperature Source Pulse Rate Pulse Rate [Bilateral Apical] 53 L Respiratory Rate 21 21 Respiratory Effort / Characteristics Respiratory Depth Blood Pressure Blood Pressure [Right Arm] 139/57 L Blood Pressure Mean Blood Pressure Mean [Right Arm] 84 Blood Pressure Position Pulse Oximetry 93 93 Oxygen Delivery Method Room Air Room Air Sepsis Recent Fever Within 48 Hours Sepsis New/Unexplained Change in Mental Status Sepsis Action Taken by [facility] Medications Current Medication List: was personally reviewed by me Laboratory Data Attestation: I reviewed the patient's lab results. Result diagrams: 11/15/19 20:20 11/15/19 20:20 Lab Results 11/15/19 11/15/19 11/15/19 Range/Units 20:20 20:20 20:20 WBC 4.86 (4.8-10.8) K/uL RBC 1.44 L (4.2-5.4) M/uL Hgb 5.6 L* (12.0-16.0) g/dL Hct 17.4 L* (37-47) % MCV 120.8 H D (80-100) fL MCH 38.9 H (25-34) pg MCHC 32.2 (32-36) g/dL Plt Count 208 (130-400) K/uL Absolute Nucleated RBC 0.04 H (0-0) K/uL Nucleated RBC % (auto) 0.8 % Neutrophils % (Manual) 71.2 % Lymphocytes % (Manual) 24.3 % Monocytes % (Manual) 2.7 % Basophils % (Manual) 0.9 % Blast Cells % (Manual) 0.9 % Neutrophils # (Manual) 3.46 (1.4-6.5) K/uL Total Absolute Neuts 3.46 (1.4-6.5) K/uL Lymphocytes # (Manual) 1.18 L (1.2-3.4) K/uL Total Abs Lymphocytes 1.18 L (1.2-3.4) K/uL Monocytes # (Manual) 0.13 (0.11-0.59) K/uL Basophils # (Manual) 0.04 (0-0.2) K/uL Blast Cells # (Man) 0.04 H (0-0) K/uL Giant Platelets 1+ Macrocytosis Present Schistocytes 1+ PT 11.9 (9.0-12.0) Seconds INR 1.1 (0.9-1.1) APTT 23.1 (21.0-31.0) Seconds PTT Ratio 0.8 Sodium (136-145) mmol/L Potassium (3.5-5.1) mmol/L Chloride (98-107) mmol/L Carbon Dioxide (21-32) mmol/L Anion Gap (3-11) BUN (7-18) mg/dl Creatinine (0.6-1.2) mg/dl Est Cr Clr Drug Dosing ml/min Est GFR ( Amer) Est GFR (Non-Af Amer) BUN/Creatinine Ratio (10-20) Glucose (70-99) mg/dl Calcium (8.5-10.1) mg/dl Total Bilirubin (0.2-1) mg/dl AST (15-37) U/L ALT (12-78) U/L Alkaline Phosphatase (45-117) U/L Troponin I (0-0.045) ng/ml NT-Pro-B Natriuret Pep (0-1800) pg/ml Total Protein (6.4-8.2) gm/dl Albumin (3.4-5.0) gm/dl Globulin (2.5-4.0) gm/dl Albumin/Globulin Ratio (0.9-2) Blood Type O Positive Antibody Screen NEGATIVE Crossmatch See Detail 11/15/19 Range/Units 20:20 WBC (4.8-10.8) K/uL RBC (4.2-5.4) M/uL Hgb (12.0-16.0) g/dL Hct (37-47) % MCV (80-100) fL MCH (25-34) pg MCHC (32-36) g/dL Plt Count (130-400) K/uL Absolute Nucleated RBC (0-0) K/uL Nucleated RBC % (auto) % Neutrophils % (Manual) % Lymphocytes % (Manual) % Monocytes % (Manual) % Basophils % (Manual) % Blast Cells % (Manual) % Neutrophils # (Manual) (1.4-6.5) K/uL Total Absolute Neuts (1.4-6.5) K/uL Lymphocytes # (Manual) (1.2-3.4) K/uL Total Abs Lymphocytes (1.2-3.4) K/uL Monocytes # (Manual) (0.11-0.59) K/uL Basophils # (Manual) (0-0.2) K/uL Blast Cells # (Man) (0-0) K/uL Giant Platelets Macrocytosis Schistocytes PT (9.0-12.0) Seconds INR (0.9-1.1) APTT (21.0-31.0) Seconds PTT Ratio Sodium 135 L (136-145) mmol/L Potassium 4.2 (3.5-5.1) mmol/L Chloride 101 (98-107) mmol/L Carbon Dioxide 28 (21-32) mmol/L Anion Gap 7.0 (3-11) BUN 30 H (7-18) mg/dl Creatinine 1.69 H (0.6-1.2) mg/dl Est Cr Clr Drug Dosing 30.8 ml/min Est GFR ( Amer) 33.4 Est GFR (Non-Af Amer) 28.8 BUN/Creatinine Ratio 17.5 (10-20) Glucose 210 H (70-99) mg/dl Calcium 8.9 (8.5-10.1) mg/dl Total Bilirubin 0.8 (0.2-1) mg/dl AST 11 L (15-37) U/L ALT 18 (12-78) U/L Alkaline Phosphatase 95 (45-117) U/L Troponin I < 0.015 (0-0.045) ng/ml NT-Pro-B Natriuret Pep 3453 H (0-1800) pg/ml Total Protein 6.8 (6.4-8.2) gm/dl Albumin 3.6 (3.4-5.0) gm/dl Globulin 3.2 (2.5-4.0) gm/dl Albumin/Globulin Ratio 1.1 (0.9-2) Blood Type Antibody Screen Crossmatch Administered Medications Pantoprazole Sodium 40 mg/ (Dextrose) 100 mls @ 20 mls/hr IV Q5H LEONA Stop: 11/16/19 02:29 Last Admin: 11/15/19 21:49 Dose: 8 mg/hr, 20 mls/hr Documented by: [id number] Discontinued Medications Diphenhydramine HCl (Benadryl) 12.5 mg IV NOW STA Stop: 11/15/19 21:08 Last Admin: 11/15/19 22:11 Dose: 12.5 mg Documented by: [id number] Sodium Chloride (Nss) 500 mls @ 999 mls/hr IV .Q31M LEONA Stop: 11/15/19 20:45 Last Infusion: 11/15/19 21:19 Dose: 0 mls/hr Documented by: [id number] Admin: 11/15/19 20:37 Dose: 999 mls/hr Documented by: [id number] Acetaminophen (Ofirmev) 1,000 mg in 100 mls @ 400 mls/hr IV NOW STA Stop: 11/15/19 21:21 Last Infusion: 11/15/19 21:49 Dose: 0 mls/hr Documented by: [id number] Admin: 11/15/19 21:19 Dose: 400 mls/hr Documented by: [id number] Pantoprazole Sodium (Protonix Bolus/Drip) 0 mls @ 1 mls/hr IV ONE STA Stop: 11/15/19 21:10 Last Admin: 11/15/19 21:57 Dose: Not Given Documented by: [id number] Pantoprazole Sodium 80 mg/ (Dextrose) 120 mls @ 480 mls/hr IV ONE ONE Stop: 11/15/19 21:29 Last Infusion: 11/15/19 21:50 Dose: 0 mls/hr Documented by: [id number] Admin: 11/15/19 21:31 Dose: 480 mls/hr Documented by: [id number] Imaging Data Radiologist's Impression: XR chest 1V portable HISTORY: Shortness of breath. COMPARISON: Chest 05/22/2017. FINDINGS: No pneumothorax. No pleural effusions. No new focal lung consolidations to suggest pneumonia. The cardiac silhouette is moderately enlarged. This has progressed in the interval. Perihilar interstitial and vascular thickening has also progressed consistent with mild pulmonary edema. IMPRESSION: Interval progression of the cardiomegaly and mild pulmonary edema. Blood Pressure Blood Pressure Findings: Elevated blood pressure Blood Pressure Disposition: further management by hospitalist Discharge Plan Visit Data Chief Complaint: Referred by Doctor Stated Complaint: DOC REF FOR BLOOD TRANSFUSION ED Provider: Ritesh Magallon Discharge Problem: SOB (shortness of breath), Fatigue, Weakness, Anemia Patient Disposition: Being Evaluated by Hospitalist Condition: Fair Discharge Instructions Interventions: ED Discharge Assessment Last Done: 11/15/19 23:23 Forms Stand Alone Forms: My [facility] [employer] Prescriptions Prescriptions: No Action rabeprazole 20 mg tablet,delayed release (DR/EC) 20 mg PO DAILY RF: 0 atorvastatin [Lipitor] 20 mg tablet 20 mg PO DAILY RF: 0 metoprolol tartrate [Lopressor] 100 mg tablet 50 mg PO BID RF: 0 prednisone 5 mg tablet 5 mg PO DAILY RF: 0 diltiazem HCl 240 mg Capsule,Extended Release 24 Hr 240 mg PO DAILY RF: 0 potassium chloride [Klor-Con 10] 10 mEq tablet extended release 30 meq PO BID RF: 0 tramadol [Ultram] 50 mg tablet 50 mg PO Q6 PRN (Reason: Pain) RF: 0 bumetanide 1 mg tablet 2 mg PO BID RF: 0 digoxin [Digox] 125 mcg (0.125 mg) tablet 125 mcg PO DAILY RF: 0 escitalopram oxalate [Lexapro] 10 mg tablet 10 mg PO DAILY RF: 0 insulin asp prt-insulin aspart [Novolog Mix 70-30FlexPen U-100] 100 unit/mL (70-30) insulin pen 100 unit SUBCUT QAM RF: 0 insulin asp prt-insulin aspart [Novolog Mix 70-30FlexPen U-100] 100 unit/mL (70-30) insulin pen 60 unit SUBCUT QPM RF: 0 allopurinol 300 mg tablet 300 mg PO DAILY RF: 0 Referrals Referrals: Marito Somers MD [Primary Care Provider] - Discharge Problem: Fatigue Qualifiers: Fatigue type: unspecified Qualified Code(s): R53.83 - Other fatigue Anemia Qualifiers: Anemia type: unspecified type Qualified Code(s): D64.9 - Anemia, unspecified
--- NOTE | 2019-11-15 20:36 | XRay Report ---
XR chest 1V portable HISTORY: Shortness of breath. COMPARISON: Chest 05/22/2017. FINDINGS: No pneumothorax. No pleural effusions. No new focal lung consolidations to suggest pneumoni a. The cardiac silhouette is moderately enlarged. This has progressed in the interval. Perihilar inte rstitial and vascular thickening has also progressed consistent with mild pulmonary edema. IMPRESSION: Interval progression of the cardiomegaly and mild pulmonary edema. ACT 112: Negative or not required by law. Electronically signed by: Ryland Randolph M.D. 11/15/2019 8:35 PM
[2019-11-15 20:43] LABS: INR 1.1 (0.9-1.1); Partial Thromboplastin Ratio 0.8; Partial Thromboplastin Time 23.1 Seconds (21.0-31.0); Prothrombin Time 11.9 Seconds (9.0-12.0)
[2019-11-15 20:52] LABS: Alanine Aminotransferase 18 U/L (12-78); Albumin Level 3.6 gm/dl (3.4-5.0); Aspartate Aminotransferase 11 U/L (15-37); BUN Creatinine Ratio 17.5 (10-20); Blood Urea Nitrogen 30 mg/dl (7-18); Calcium 8.9 mg/dl (8.5-10.1); Carbon Dioxide 28 mmol/L (21-32); Chloride 101 mmol/L (98-107); Creatinine Clr Calc Pharmacy 30.8 ml/min; Est GFR (African American) 33.4; Est GFR (Non-African American) 28.8; Glucose 210 mg/dl (70-99); Potassium 4.2 mmol/L (3.5-5.1); Sodium 135 mmol/L (136-145)
[2019-11-15 20:55] LABS: Hematocrit (blood only) 17.4 % (37-47); Hemoglobin 5.6 g/dL (12.0-16.0); Mean Corpuscular Hemoglobin 38.9 pg (25-34); Mean Corpuscular Hgb Conc 32.2 g/dL (32-36); Mean Corpuscular Volume 120.8 fL (80-100); Nucleated RBC # (auto) 0.04 K/uL (0-0); Nucleated RBC % (auto) 0.8 %; Platelet Count 208 K/uL (130-400); Red Blood Count 1.44 M/uL (4.2-5.4); White Blood Count 4.86 K/uL (4.8-10.8)
[2019-11-15 20:56] LABS: Albumin Globulin Ratio 1.1 (0.9-2); Alkaline Phosphatase 95 U/L (45-117); Bilirubin,Total 0.8 mg/dl (0.2-1); Globulin 3.2 gm/dl (2.5-4.0); Total Protein 6.8 gm/dl (6.4-8.2)
[2019-11-15 21:06] LABS: NT Pro B Type Natriuretic Pept 3453 pg/ml (0-1800); Troponin I < 0.015 ng/ml (0-0.045)
[2019-11-15] MEDS ORDERED: SODIUM CHLORIDE 0.9% 250 ML IV PRN (21:07)
[2019-11-15] MEDS ORDERED: DiphenhydrAMINE HCL 50 MG/ML VIAL IV STA (21:07)
[2019-11-15] MEDS ORDERED: ACETAMINOPHEN 1,000 MG/100 ML VIAL IV STA (21:07)
[2019-11-15 21:08] LABS: Giant Platelets 1+; Macrocytosis Present; Schistocytes 1+
[2019-11-15] MEDS ORDERED: PANTOPRAZOLE BOLUS/DRIP 1 EA IV STA (21:09)
[2019-11-15 21:10] LABS: ALC (manual) 1.18 K/uL (1.2-3.4); ANC (manual) 3.46 K/uL (1.4-6.5); Basophils # (manual) 0.04 K/uL (0-0.2); Basophils % (manual) 0.9 %; Blast # (manual) 0.04 K/uL (0-0); Blast Cells % (manual) 0.9 %; Lymphocytes # (manual) 1.18 K/uL (1.2-3.4); Lymphocytes % (manual) 24.3 %; Monocytes # (manual) 0.13 K/uL (0.11-0.59); Monocytes % (manual) 2.7 %; Neutrophils # (manual) 3.46 K/uL (1.4-6.5); Neutrophils % (manual) 71.2 %
[2019-11-15] MEDS ORDERED: PANTOprazole 80 MG in DEXTROSE 5% 100 ML IV ONE (21:15)
[2019-11-15] MEDS: PANTOprazole 40 MG in DEXTROSE 5% 100 ML IV SCH (21:49)
[2019-11-15] MEDS ORDERED: DEXTROSE 50% 50 ML SYRINGE IV PRN (23:47)
[2019-11-15] MEDS ORDERED: CARBOHYDRATES FOR HYPOGLYCEMIA PO PRN (23:47)
[2019-11-15] MEDS ORDERED: TRAMADOL HCL 50 MG TABLET PO PRN (23:47)
[2019-11-15] MEDS ORDERED: GLUCAGON FOR INJ 1 MG VIAL SQ PRN (23:47)
[2019-11-15] MEDS ORDERED: GLUCOSE 40% GEL 15 GM TUBE PO PRN (23:47)
[2019-11-15] MEDS ORDERED: GLUCOSE 10 TABS/TUBE PO PRN (23:47)
[2019-11-16] MEDS ORDERED: INSULIN GLARGINE SOLOSTAR 100 UNITS/ML 3 ML PEN SC ONE ×2 (00:30→16:30)
[2019-11-16] MEDS ORDERED: INSULIN ASPART 100 UNITS/ML 3 ML PEN SC SCH (00:30)
[2019-11-16 00:42] LABS: Magnesium 2.2 mg/dl (1.8-2.4)
[2019-11-16] MEDS ORDERED: PHARMACY GLYCEMIC MGMT CONSULT PRN (00:42)
--- NOTE | 2019-11-16 00:58 | History & Physical Report ---
Date of Service November 15, 2019 Assessment & Plan (1) Anemia: 79yo C female presenting with symptomatic anemia. Patient with macrocytic anemia, Hgb=5.6, Hct=17.4, LJO=771.8 (Previously 12.3, 37.8 and 106, respectively on 08/24/18). Stool brown and Heme negative per ER evaluation. -Admit to medical floor -Awaiting peripheral smear consultation -Check B12 and Folic Acid levels -Transfuse 3u PRBCs, repeat CBC in AM. Patient may require lasix between transfusions if she becomes short of breath -GI consultation appreciated -Continue Protonix gtt although doubt acute UGIB at this time Present on Admission?: Yes (2) Hypertension: Blood pressure stable -Continue Diltiazem and Metoprolol -Continue to monitor (3) Atrial fibrillation: Patient bradycardic at 53bpm. She follows with Dr. Villaseñor and state that her medications for HR have recently been decreased -Will decrease Diltiazem from 240mg po daily to 120mg po daily and monitor effects -Continue Metoprolol 50mg po BID -Continue Digoxin - check level -No anticoagulation given remote history of suspected GIB, acute presentation of symptomatic anemia. Patient is higher risk for CVA given age, DM, HTN Present on Admission?: Yes (4) Diabetes: Patient presently on 70/30 BID. She will be NPO for now. -Appreciate Pharmacy assistance in dosing insulin -Glargine 25u x 1 -Novolog q 4 hours as needed, goal BS 110 - 140 F/E/N -Heplock. Monitor electrolytes, continue PO Klor-Con BID. NPO for now Ppx - SCDs Code - Full Dispo - Admit to medical floor Present on Admission?: Yes Admission and Anticipated Discharge Date Admission Date: November 15, 2019 Anticipated date of discharge: 11/17/19 History of Present Illness Chief Complaint: Symptomatic Anemia Primary Care Provider: Marito Somers MD Carmen Skaggs is a 79yo C female with history ofAF, HTN, DM, prior malignancy presenting with 1.5 - 2 weeks of progressive FUENTES, weakness and fatigue. Also with palpitations and nausea experienced with exertion. She denies CP, syncope or presyncope but has had some lightheadedness with positional changes. She denies melena/hematochezia but reports that she started taking an iron pill and MVI recently which has resulted in slightly darker stool color. She denies hematuria, vaginal bleeding, bruising. She has noticed that she looks pale but denies jaundice/icterus. No additional complaints at this time. She denies vomiting Patient had a similar episode occur in 2017. She was on Eliquis at that time for her chronic atrial fibrillation. She developed symptomatic anemia requiring blood transfusion. She had an EGD and Colonoscopy performed to work up her anemia by Dr. Sanchez on 05/29/17./ Her Colonoscopy revealed multiple small mouthed diverticula in the sigmoid as well as non-bleeding internal hemorrhoids. EGD with small hiatal hernia, multiple polyps in the gastric fundus with no stigmata of recent bleeding. Localized inflammation in the gastric antrum. ER Course: Tylenol, Protonix, Transfusion 3u PRBCs started Allergies Allergy/AdvReac Type Severity Reaction Status Date / Time hydrocodone Allergy Mild UNKNOWN Verified 11/15/19 21:18 "HAPPENED LONG TIME AGO" phenol Allergy Unknown LOCALIZED Verified 11/15/19 21:18 RASH AT INJECTION SITE protamine Allergy Unknown LOCALIZED Verified 11/15/19 21:18 RASH AT INJECTION SITE sodium phosphate Allergy Unknown LOCALIZED Verified 11/15/19 21:18 RASH AT INJECTION SITE zinc Allergy Unknown LOCALIZED Verified 11/15/19 21:18 RASH AT INJECTION SITE hydroxychloroquine AdvReac Unknown "BURPED Verified 11/15/19 21:18 FOR DAYS AND TORE MY STOMACH UP" Home Medications Home Medications Medication Instructions Recorded Confirmed Type allopurinol 300 mg PO DAILY 11/15/19 11/15/19 History atorvastatin [Lipitor] 20 mg PO DAILY 11/15/19 11/15/19 History bumetanide 2 mg PO BID 11/15/19 11/15/19 History digoxin [Digox] 125 mcg PO DAILY 11/15/19 11/15/19 History diltiazem HCl 240 mg PO DAILY 11/15/19 11/15/19 History escitalopram oxalate [Lexapro] 10 mg PO DAILY 11/15/19 11/15/19 History insulin asp prt-insulin aspart 60 unit SUBCUT QPM 11/15/19 11/15/19 History [Novolog Mix 70-30FlexPen U-100] insulin asp prt-insulin aspart 100 unit SUBCUT QAM 11/15/19 11/15/19 History [Novolog Mix 70-30FlexPen U-100] metoprolol tartrate [Lopressor] 50 mg PO BID 11/15/19 11/15/19 History potassium chloride [Klor-Con 10] 30 meq PO BID 11/15/19 11/15/19 History prednisone 5 mg PO DAILY 11/15/19 11/15/19 History rabeprazole 20 mg PO DAILY 11/15/19 11/15/19 History tramadol [Ultram] 50 mg PO Q6 PRN 11/15/19 11/15/19 History Past Med/Surg History Medical History (Updated 11/16/19 @ 00:54 by Vicky De Leon DO) GI bleed Malignant neoplasm of central portion of female breast (Resolved 10/01/11) "Left breast pain Finding of a left breast mass Status post biopsy revealing infiltrating ductal carcinoma Status post partial mastectomy and sentinel lymph node biopsy Pathologic stage [id number] Estrogen receptor positive, progesterone receptor positive, HER-2/abelardo negative Status post completion of radiation therapy 04/08/2012 received 6120 cGy" Surgical History (Updated 11/16/19 @ 00:42 by Vicky De Leon DO) History of hysterectomy History of lumpectomy Family History (Updated 11/16/19 @ 00:42 by Vicky De Leon DO) Other Cancer Diabetes Social History (Updated 11/16/19 @ 00:43 by Vicky De Leon DO) Feels Safe at Home: Yes Smoking Status: Never smoker Hx Alcohol Use: No Hx Substance Use: No Review of Systems Review of Systems: All systems reviewed & are unremarkable except as noted in HPI & below Physical Exam Physical Exam: General: patient resting comfortably, NAD, non-toxic in appearance, AA&O x 4 Skin: warm, dry, intact, no rashes or lesions, +Pallor of skin/conjunctiva/oral mucosa HEENT: NC/AT, PERRL, EOMI, anicteric sclera, conjunctiva without injection, external ear normal to inspection and nontender, nares patent, moist mucus membranes, dentition intact, no oropharyngeal lesions, neck supple, trachea midline, no LAD, no thyromegaly, no JVD Heart: +S1/S2, irregularly irregular, bradycardic, no m/r/g Lungs: equal air entry bilaterally, no rales/rhonchi/wheezes, mildly diminished in bilateral bases Abd: +BS, soft, NT/ND, no masses/organomegaly/ascites Ext: warm, 2+ pulses in UE/LE bilaterally, no clubbing/cyanosis or edema Neuro: nonfocal, patient AA&O x 4, speech intact, no facial droop, moving all extremities on command with equal strength 5/5 Results & Data Results & Data ([facility]) Vital Signs (Past 12 Hours) Vital Signs Temp Pulse Pulse Resp BP BP Pulse Ox 11/16/19 00:15 36.9 C 46 L 18 121/65 92 11/16/19 00:00 36.9 C 55 L 18 145/75 H 97 11/15/19 23:40 36.8 C 61 18 158/68 H 95 11/15/19 23:23 21 93 11/15/19 23:18 36.5 C 53 L 21 139/57 L 93 11/15/19 23:14 53 L 21 139/57 L 93 11/15/19 22:48 37 C 52 L 20 148/57 H 97 11/15/19 22:33 37 C 69 20 157/64 H 96 11/15/19 22:17 36.9 C 53 L 20 111/55 L 11/15/19 22:06 60 20 111/55 L 98 11/15/19 20:35 51 L 20 129/51 L 99 11/15/19 19:56 37.5 C 59 L 16 129/55 L 95 Laboratory Results Lab Results 11/15/19 11/15/19 11/15/19 Range/Units 20:20 20:20 20:20 WBC 4.86 (4.8-10.8) K/uL RBC 1.44 L (4.2-5.4) M/uL Hgb 5.6 L* (12.0-16.0) g/dL Hct 17.4 L* (37-47) % MCV 120.8 H D (80-100) fL MCH 38.9 H (25-34) pg MCHC 32.2 (32-36) g/dL Plt Count 208 (130-400) K/uL Absolute Nucleated RBC 0.04 H (0-0) K/uL Nucleated RBC % (auto) 0.8 % Neutrophils % (Manual) 71.2 % Lymphocytes % (Manual) 24.3 % Monocytes % (Manual) 2.7 % Basophils % (Manual) 0.9 % Blast Cells % (Manual) 0.9 % Neutrophils # (Manual) 3.46 (1.4-6.5) K/uL Total Absolute Neuts 3.46 (1.4-6.5) K/uL Lymphocytes # (Manual) 1.18 L (1.2-3.4) K/uL Total Abs Lymphocytes 1.18 L (1.2-3.4) K/uL Monocytes # (Manual) 0.13 (0.11-0.59) K/uL Basophils # (Manual) 0.04 (0-0.2) K/uL Blast Cells # (Man) 0.04 H (0-0) K/uL Giant Platelets 1+ Macrocytosis Present Schistocytes 1+ PT 11.9 (9.0-12.0) Seconds INR 1.1 (0.9-1.1) APTT 23.1 (21.0-31.0) Seconds PTT Ratio 0.8 Sodium (136-145) mmol/L Potassium (3.5-5.1) mmol/L Chloride (98-107) mmol/L Carbon Dioxide (21-32) mmol/L Anion Gap (3-11) BUN (7-18) mg/dl Creatinine (0.6-1.2) mg/dl Est Cr Clr Drug Dosing ml/min Est GFR ( Amer) Est GFR (Non-Af Amer) BUN/Creatinine Ratio (10-20) Glucose (70-99) mg/dl Calcium (8.5-10.1) mg/dl Phosphorus (2.5-4.9) mg/dl Magnesium (1.8-2.4) mg/dl Total Bilirubin (0.2-1) mg/dl AST (15-37) U/L ALT (12-78) U/L Alkaline Phosphatase (45-117) U/L Troponin I (0-0.045) ng/ml NT-Pro-B Natriuret Pep (0-1800) pg/ml Total Protein (6.4-8.2) gm/dl Albumin (3.4-5.0) gm/dl Globulin (2.5-4.0) gm/dl Albumin/Globulin Ratio (0.9-2) Blood Type O Positive Antibody Screen NEGATIVE Crossmatch See Detail 11/15/19 Range/Units 20:20 WBC (4.8-10.8) K/uL RBC (4.2-5.4) M/uL Hgb (12.0-16.0) g/dL Hct (37-47) % MCV (80-100) fL MCH (25-34) pg MCHC (32-36) g/dL Plt Count (130-400) K/uL Absolute Nucleated RBC (0-0) K/uL Nucleated RBC % (auto) % Neutrophils % (Manual) % Lymphocytes % (Manual) % Monocytes % (Manual) % Basophils % (Manual) % Blast Cells % (Manual) % Neutrophils # (Manual) (1.4-6.5) K/uL Total Absolute Neuts (1.4-6.5) K/uL Lymphocytes # (Manual) (1.2-3.4) K/uL Total Abs Lymphocytes (1.2-3.4) K/uL Monocytes # (Manual) (0.11-0.59) K/uL Basophils # (Manual) (0-0.2) K/uL Blast Cells # (Man) (0-0) K/uL Giant Platelets Macrocytosis Schistocytes PT (9.0-12.0) Seconds INR (0.9-1.1) APTT (21.0-31.0) Seconds PTT Ratio Sodium 135 L (136-145) mmol/L Potassium 4.2 (3.5-5.1) mmol/L Chloride 101 (98-107) mmol/L Carbon Dioxide 28 (21-32) mmol/L Anion Gap 7.0 (3-11) BUN 30 H (7-18) mg/dl Creatinine 1.69 H (0.6-1.2) mg/dl Est Cr Clr Drug Dosing 30.8 ml/min Est GFR ( Amer) 33.4 Est GFR (Non-Af Amer) 28.8 BUN/Creatinine Ratio 17.5 (10-20) Glucose 210 H (70-99) mg/dl Calcium 8.9 (8.5-10.1) mg/dl Phosphorus 3.0 (2.5-4.9) mg/dl Magnesium 2.2 (1.8-2.4) mg/dl Total Bilirubin 0.8 (0.2-1) mg/dl AST 11 L (15-37) U/L ALT 18 (12-78) U/L Alkaline Phosphatase 95 (45-117) U/L Troponin I < 0.015 (0-0.045) ng/ml NT-Pro-B Natriuret Pep 3453 H (0-1800) pg/ml Total Protein 6.8 (6.4-8.2) gm/dl Albumin 3.6 (3.4-5.0) gm/dl Globulin 3.2 (2.5-4.0) gm/dl Albumin/Globulin Ratio 1.1 (0.9-2) Blood Type Antibody Screen Crossmatch Diagnostic Findings XR chest 1V portable HISTORY: Shortness of breath. COMPARISON: Chest 05/22/2017. FINDINGS: No pneumothorax. No pleural effusions. No new focal lung consolidations to suggest pneumonia. The cardiac silhouette is moderately enlarged. This has progressed in the interval. Perihilar interstitial and vascular thickening has also progressed consistent with mild pulmonary edema. IMPRESSION: Interval progression of the cardiomegaly and mild pulmonary edema. ACT 112: Negative or not required by law. Electronically signed by: Ryland Randolph M.D. 11/15/2019 8:35 PM ECG Additional Comments: EKG shows AF at 58bpm, no acute ischemic changes Code Status & VTE Plan Code Status Full Code VTE Prophylaxis Plan VTE Prophylaxis will be ordered: Yes PG Care Time/CCT Total # of Minutes Spent Total Time Spent with Patient: Total time spent is greater than 50% in coordination of care (as documented) at patient's floor/unit and/or counseling patient: Coding Level of Care Code 17070 Initial Inpt Care Lvl 3 Diagnoses Anemia D64.9 Anemia type: unspecified type Hypertension I10 Hypertension type: essential hypertension Atrial fibrillation I48.91 Atrial fibrillation type: unspecified Diabetes E11.9; Z79.4 Diabetes mellitus type: type 2 Diabetes mellitus roasterman insulin use: with chcf use Diabetes mellitus complication status: without complication (1) Anemia Anemia type: unspecified type Qualified Code(s): D64.9 - Anemia, unspecified (2) Hypertension Hypertension type: essential hypertension Qualified Code(s): I10 - Essential (primary) hypertension (3) Atrial fibrillation Atrial fibrillation type: unspecified Qualified Code(s): I48.91 - Unspecified atrial fibrillation (4) Diabetes Diabetes mellitus type: type 2 Diabetes mellitus chcf insulin use: with roasterman use Diabetes mellitus complication status: without complication Qualified Code(s): E11.9 - Type 2 diabetes mellitus without complications; Z79.4 - intermediate frame tender (current) use of insulin
[2019-11-16] MEDS: PANTOprazole 40 MG in DEXTROSE 5% 100 ML IV SCH ×5 (02:41→18:30)
[2019-11-16] MEDS: INSULIN ASPART 100 UNITS/ML 3 ML PEN SC SCH ×5 (04:12→21:05)
[2019-11-16 06:18] LABS: Hematocrit (blood only) 17.7 % (37-47); Hemoglobin 5.7 g/dL (12.0-16.0); Mean Corpuscular Hemoglobin 36.5 pg (25-34); Mean Corpuscular Hgb Conc 32.2 g/dL (32-36); Mean Corpuscular Volume 113.5 fL (80-100); Platelet Count 171 K/uL (130-400); Red Blood Count 1.56 M/uL (4.2-5.4)
[2019-11-16] MEDS ORDERED: SODIUM CHLORIDE 0.9% 250 ML IV PRN (06:26)
[2019-11-16 06:35] LABS: Calcium 8.2 mg/dl (8.5-10.1); Creatinine Clr Calc Pharmacy 34.7 ml/min; Est GFR (African American) 38.2; Potassium 3.7 mmol/L (3.5-5.1)
[2019-11-16 06:52] LABS: Basophils # (auto) 0.01 K/uL (0-0.2); Basophils % (auto) 0.3 %; Eosinophils # (auto) 0.02 K/uL (0-0.5); Eosinophils % (auto) 0.5 %; Giant Platelets 1+; Hypochromasia Present; Hypogranular Neutrophils 1+; Immature Granulocytes # (auto) 0.01 K/uL (0.00-0.02); Immature Granulocytes % (auto) 0.3 %; Lymphocytes % (auto) 37.5 %; Macrocytosis Present; Monocytes # (auto) 0.18 K/uL (0.11-0.59); Monocytes % (auto) 4.5 %; Neutrophils # (auto) 2.28 K/uL (1.4-6.5); Neutrophils % (auto) 56.9 %; Poikilocytosis Present; Tear Drop Cells 1+
[2019-11-16 07:46] LABS: Estimated Average Glucose 140 mg/dl; Hemoglobin A1C 6.5 % (4.5-5.6)
[2019-11-16] MEDS: BUMETANIDE 1 MG TAB PO SCH ×2 (08:53→17:10)
[2019-11-16] MEDS: METOPROLOL TARTRATE 50 MG TAB PO SCH ×2 (08:53→20:34)
[2019-11-16] MEDS: ESCITALOPRAM OXALATE 10 MG TAB PO SCH (08:54)
[2019-11-16] MEDS: POTASSIUM CHLORIDE 10 MEQ TABCR PO SCH ×2 (08:54→20:33)
[2019-11-16] MEDS: dilTIAZem HCL 120 MG CAPCR PO SCH (08:54)
[2019-11-16] MEDS: predniSONE 5 MG TAB PO SCH (08:54)
[2019-11-16] MEDS: ATORVASTATIN 20 MG TAB PO SCH (08:54)
[2019-11-16] MEDS ORDERED: PANTOprazole 40 MG TAB PO SCH (09:00)
--- NOTE | 2019-11-16 09:08 | Electrocardiogram Report ---
Test Reason : Blood Pressure : / mmHG Vent. Rate : 058 BPM Atrial Rate : 041 BPM P-R Int : 000 ms QRS Dur : 082 ms QT Int : 380 ms P-R-T Axes : 000 036 179 degrees QTc Int : 373 ms Poor data quality, interpretation may be adversely affected Atrial fibrillation with slow ventricular response Nonspecific ST and T wave abnormality Abnormal ECG When compared with ECG of 08-JUL-2017 06:48, Vent. rate has decreased BY 38 BPM Non-specific change in ST segment in Inferior leads ST no longer elevated in Lateral leads Nonspecific T wave abnormality now evident in Inferior leads Nonspecific T wave abnormality now evident in Anterolateral leads Confirmed by Praneeth Dowell ([id number]) on 11/16/2019 9:07:49 AM Referred By: REFERRED SELF Confirmed By:Praneeth Dowell
--- NOTE | 2019-11-16 10:24 | Gastrointestinal Consultation ---
Date of Consultation November 16, 2019 Assessment & Plan (1) Anemia: Patient is a 79 yo female with anemia. She had a GI work-up in 2017 with an unremarkable EGD & colonoscopy. Her current H/H is 5.7/17.7. Interestingly, her MCV on admission was 130. She has no overt GI bleeding or GI symptoms. Her blood smear is pending. Prior to consideration of repeating her endoscopic work- up, would recommend a hematology consult. In the interim, would recommend BID PPI therapy and transfusing patient. Further recommendations will be forthcoming pending hematology work-up. Thank you for allowing us to participate in the care of this patient. If you should have any further questions or concerns, do not hesitate to contact us at extension [phone] or [phone]. Supervising Physician Co-Signing Physician Notes Agree with CAIT Turner as above Abd: Soft, NT, ND, +BS Will undergo hematology workup due to Macrocytic anemia No overt GI bleeding and workup with EGD/Colon within the past 3 years, therefore no plans for endoscopy at present Continue current therapy and supportive care. History of Present Illness Reason for Consultation: Anemia Attending Physician: Chao Lucero History of Present Illness Patient is a 79 yo female who is currently admitted to [facility] with anemia. Her H/H is presently 5.7/17.7. Interestingly, MCV on admission was 130. Her blood smear is pending. She reports she noticed over the past 2 weeks that she was becoming dyspneic on exertion. She denies any abdominal pain, hematemesis, heartburn, NSAID use, diarrhea, constipation, or rectal bleeding. In 2017, she was anemic as well and had an unremarkable GI work-up with an EGD & colonoscopy. She does not believe she saw hematology at that time. She denies alcohol use. She denies pertinent GI family history. She denies GI complaints at present. Allergies Allergy/AdvReac Type Severity Reaction Status Date / Time hydrocodone Allergy Mild UNKNOWN Verified 11/15/19 21:18 "HAPPENED LONG TIME AGO" phenol Allergy Unknown LOCALIZED Verified 11/15/19 21:18 RASH AT INJECTION SITE protamine Allergy Unknown LOCALIZED Verified 11/15/19 21:18 RASH AT INJECTION SITE sodium phosphate Allergy Unknown LOCALIZED Verified 11/15/19 21:18 RASH AT INJECTION SITE zinc Allergy Unknown LOCALIZED Verified 11/15/19 21:18 RASH AT INJECTION SITE hydroxychloroquine AdvReac Unknown "BURPED Verified 11/15/19 21:18 FOR DAYS AND TORE MY STOMACH UP" Home Medications Home Medications Medication Instructions Recorded Confirmed Type allopurinol 300 mg PO DAILY 11/15/19 11/15/19 History atorvastatin [Lipitor] 20 mg PO DAILY 11/15/19 11/15/19 History bumetanide 2 mg PO BID 11/15/19 11/15/19 History digoxin [Digox] 125 mcg PO DAILY 11/15/19 11/15/19 History diltiazem HCl 240 mg PO DAILY 11/15/19 11/15/19 History escitalopram oxalate [Lexapro] 10 mg PO DAILY 11/15/19 11/15/19 History insulin asp prt-insulin aspart 60 unit SUBCUT QPM 11/15/19 11/15/19 History [Novolog Mix 70-30FlexPen U-100] insulin asp prt-insulin aspart 100 unit SUBCUT QAM 11/15/19 11/15/19 History [Novolog Mix 70-30FlexPen U-100] metoprolol tartrate [Lopressor] 50 mg PO BID 11/15/19 11/15/19 History potassium chloride [Klor-Con 10] 30 meq PO BID 11/15/19 11/15/19 History prednisone 5 mg PO DAILY 11/15/19 11/15/19 History rabeprazole 20 mg PO DAILY 11/15/19 11/15/19 History tramadol [Ultram] 50 mg PO Q6 PRN 11/15/19 11/15/19 History Patient History Medical History (Updated 11/16/19 @ 00:54 by Vicky De Leon DO) GI bleed Malignant neoplasm of central portion of female breast (Resolved 10/01/11) "Left breast pain Finding of a left breast mass Status post biopsy revealing infiltrating ductal carcinoma Status post partial mastectomy and sentinel lymph node biopsy Pathologic stage [id number] Estrogen receptor positive, progesterone receptor positive, HER-2/abelardo negative Status post completion of radiation therapy 04/08/2012 received 6120 cGy" Surgical History (Updated 11/16/19 @ 00:42 by Vicky De Leon DO) History of hysterectomy History of lumpectomy Family History (Updated 11/16/19 @ 00:42 by Vicky De Leon DO) Other Cancer Diabetes Social History (Updated 11/16/19 @ 00:43 by Vicky De Leon DO) Preferred Language: Vincentian Communication Ability: Effective Reproductive Endocrinologist Required: No Beliefs That Will Affect Care: None Current Living Situation: Significant Other Feels Safe at Home: Yes Smoking Status: Never smoker Hx Alcohol Use: No Hx Substance Use: No Review of Systems Constitutional: no fever and no chills Eyes: no problem reported Ear, Nose, Mouth, Throat: no problem reported Respiratory: + dyspnea on exertion; no cough Cardiovascular: no chest pain Gastrointestinal: no abdominal pain, no constipation, no diarrhea/loose stools and no blood in stools Musculoskeletal: no problem reported Integumentary: no problem reported Psychiatric: no problem reported Endocrine: no problem reported Physical Exam Constitutional: WD/WN, vitals as above Eyes: PERRL, conjunctivae normal, anicteric sclerae ENMT: external ear and nose normal, oropharynx normal Neck: normal visual inspection Respiratory: normal respiratory effort, lungs clear to auscultation Cardiovascular: Rate/Rhythm: regular rate and regular rhythm Gastrointestinal (Abdomen): normal bowel sounds, soft, nontender, no hepatosplenomegaly Musculoskeletal: no cyanosis or clubbing, extremities motor strength 5/5 Skin: no rashes, warm and dry Psychiatric: A+Ox3, euthymic affect Results & Data ([facility]) Vital Signs (Past 12 Hours) Vital Signs Temp Pulse Pulse Pulse Resp BP BP 11/16/19 09:50 36.6 C 53 L 16 150/78 H 11/16/19 09:22 36.6 C 60 18 148/79 H 11/16/19 08:54 61 11/16/19 08:50 36.4 C L 57 L 16 142/59 H 11/16/19 08:25 36.5 C 53 L 20 145/80 H 11/16/19 07:50 36.6 C 53 L 16 136/72 11/16/19 07:20 36.7 C 55 L 16 141/60 H 11/16/19 07:04 36.8 C 54 L 16 142/75 H 11/16/19 06:47 36.5 C 51 L 12 100/54 L 11/16/19 06:41 36.5 C 61 12 100/54 L 11/16/19 01:00 36.7 C 52 L 16 127/54 L 11/16/19 00:45 36.7 C 53 L 16 115/66 11/16/19 00:15 36.9 C 46 L 18 121/65 11/16/19 00:00 36.9 C 55 L 18 145/75 H 11/15/19 23:40 36.8 C 61 61 18 158/68 H 158/68 H 11/15/19 23:23 21 11/15/19 23:18 36.5 C 53 L 21 139/57 L 11/15/19 23:14 53 L 21 139/57 L 11/15/19 22:48 37 C 52 L 20 148/57 H 11/15/19 22:33 37 C 69 20 157/64 H Pulse Ox 11/16/19 09:50 94 11/16/19 09:22 98 11/16/19 08:54 11/16/19 08:50 11/16/19 08:25 96 11/16/19 07:50 95 11/16/19 07:20 96 11/16/19 07:04 99 11/16/19 06:47 85 L 11/16/19 06:41 85 L 11/16/19 01:00 95 11/16/19 00:45 97 11/16/19 00:15 92 11/16/19 00:00 97 11/15/19 23:40 93 11/15/19 23:23 93 11/15/19 23:18 93 11/15/19 23:14 93 11/15/19 22:48 97 11/15/19 22:33 96 PG Care Time/CCT Total # of Minutes Spent Total Time Spent with Patient: Total time spent is greater than 50% in coordination of care (as documented) at patient's floor/unit and/or counseling patient: Coding Level of Care Code 93054 Initial Inpt Care Lvl 3 Diagnoses Anemia D64.9 Anemia type: unspecified type (1) Anemia Anemia type: unspecified type Qualified Code(s): D64.9 - Anemia, unspecified
--- NOTE | 2019-11-16 12:27 | Pharmacy Report ---
Glycemic Control Consultation - Date of Service November 16, 2019 - Scope Scope: Glycemic Pharmacist consulted for glycemic control and to write orders per [facility] inpatient glycemic control protocol. - Objective Weight: 101.2 kg Accuchecks BSG (last 24hrs): 11/15/19 11/16/19 11/16/19 20:20 00:37 04:06 Glucose 210 H POC Glucose 137 H 111 H 11/16/19 11/16/19 11/16/19 05:47 07:54 12:03 Glucose 87 POC Glucose 104 H 136 H Laboratory Data (last 24hrs): 11/15/19 11/16/19 20:20 05:47 Potassium 4.2 3.7 Carbon Dioxide 28 27 Anion Gap 7.0 7.0 Creatinine 1.69 H 1.51 H Est Cr Clr Drug Dosing 30.8 34.7 HbA1c: Hemoglobin A1c 6.5 % (4.5-5.6) H 11/16/19 05:47 - Recent Pertinent Medications Outpatient Anti-diabetic Regimen: * Novolog Mix 70/30 100 units in AM and 60 units in the PM [facility] * A1c = 6.5 % 11/16/2019 The patient is currently receiving: * Basal insulin: Lantus 25 units SQ x1 * Correctional Insulin: Novolog Correction per scale ACHS Goal Range: Low 110 mg/dL - High 140 mg/dL Correction Factor: 20 mg/dL/unit * Prandial insulin: Per carb ratio of 1 unit per 7 grams CHO consumed Risk Factors for Insulin Resistance: * Diet: NPO - Assessment & Plan Assessment & Plan: ASSESSMENT: * Ms Skaggs is a 79 y/o F with a PMH of T2DM maintained on approximately 160 units of insulin per day. HbA1C indicates she is well controlled but uncertain how trustworthy result is due to significant macrocytic anemia. Admitting BSG was 210 mg/dL. She was given 25 units of Lantus and BSGs trended downwards. Patient would have taken Novolog 70/30 100 units in the morning. * Fasting BSG was 104 mg/dL indicating a basal rate of 95 units (70 units of NPH plus Lantus 25 units) was too aggressive. Plan for Lantus 50 units today at dinner. Patient may require more basal insulin but will monitor tomorrow morning. Will keep goal range lower so patient receives correctional insulin once above 140 mg/dL. * Originally started on Novolog weight-based stress of 2-3. Will continue while NPO. * Hold mixed insulin while inhouse as it is difficult to titrate. PLAN FOR INPATIENT GLYCEMIC CONTROL: * Basal insulin * Lantus 50 units SQ x 1 * Bolus insulin * NovoLog per scale ACHS or Q6hrs while NPO * Goal Range: Low 110 mg/dL - High 140 mg/dL * Correction Factor: 20 mg/dL/unit * Nutritional / Prandial insulin per carb ratio of 1 unit per 7 grams CHO consumed * Please note that the plan above was derived based on current level of insulin resistance and hospital stress. These recommendations are appropriate for inpatient admission only. Plan of care upon discharge will need to be reassessed to avoid potential outpatient hypo/hyperglycemia. Thank you.
--- NOTE | 2019-11-16 13:08 | Consultation Report ---
DATE OF CONSULTATION: 11/16/2019 REASON FOR CONSULTATION: Macrocytic anemia. CHIEF COMPLAINT: Lethargy and fatigue of several weeks duration. HISTORY OF PRESENT ILLNESS: The patient is being transfused for her macrocytic anemia. Her admission CBC included a hemoglobin of 5.7, a white blood cell count of 4000, and a platelet count of 171,000. The erythrocyte mean corpuscular volume was markedly elevated at 113.5. A rare myeloblast and an occasional nucleated erythrocytes were identified on the peripheral blood smear. The vitamin B12 level was 1128. A folic acid level is pending. The creatinine was 1.51. The patient has not noted a recent change in the color or character of her stools. She has not had other manifestations of bleeding. She has not noted lymphadenopathy, night sweats or pruritus. She is concerned that she might have a leukemia. She has been seen by a photography colorist who has not found clinical evidence of bleeding. A previously done GI workup revealed the presence of a hiatal hernia, diverticular disease, and hemorrhoids. PAST MEDICAL HISTORY: She has a history of diabetes and hypertension. She required treatment for a left breast cancer that was diagnosed in 2011. She had a partial mastectomy followed by radiation and 5 years of tamoxifen. She had an endometrial carcinoma that was diagnosed in 2007 for which she was treated with a total abdominal hysterectomy and bilateral salpingo-oophorectomies. She has required treatment for nephrolithiasis. She has degenerative disc disease. She had a cholecystectomy many years ago. SOCIAL HISTORY: She lives alone. She is . She denies the use of tobacco products and ethanol-containing beverages. FAMILY HISTORY: Her father at age 49 of a pancreatic cancer. Her son is currently being treated for multiple myeloma. She knows of no additional family history of neoplastic disorders or hematologic derangements. REVIEW OF SYSTEMS: CONSTITUTIONAL: She has had weakness and fatigue in association with her anemia. EYES: She has not noted impaired visual acuity. She has not had conjunctivitis. NOSE: No bothersome nasal congestion. No unusual discharge. MOUTH: No ulcerations or dryness. RESPIRATORY: Dyspnea on strenuous exertion. No unusual cough. HEART: No anginal chest pain, no palpitations. ABDOMEN: No unusual abdominal discomfort. No recent change in stool pattern or color. GENITOURINARY: No dysuria, no hematuria. NEUROLOGIC: No memory loss or paralysis. PSYCHIATRIC: No depression. No unusual agitation. ENDOCRINE: No excessive urine production. No cold intolerance. SKIN: No rash, no subcutaneous nodules. PHYSICAL EXAMINATION: GENERAL: Well-developed, well-nourished female in no acute distress, appearing stated age. HEAD: No contusion. EYES: No scleral icterus, no conjunctivitis. NOSE: No mucosal inflammation, no unusual discharge. MOUTH: Mucous membranes moist. No gingival ulceration. NECK: Neck veins not distended. Thyroid not palpably enlarged. CHEST: Resonant to percussion. Expiration not prolonged on auscultation. No rales, rhonchi or wheezes. HEART: PMI in the fifth intercostal space midclavicular line. Rhythm regular. No murmur, gallop or friction rub. ABDOMEN: Soft. Bowel sounds are active. No palpable masses. No palpable organomegaly. MUSCULOSKELETAL: No joint effusion, no unusual muscle tenderness. SKIN: No dermatitis. No palpable subcutaneous nodules. NEUROLOGIC: Cranial nerves intact. Deep tendon reflexes symmetrical. PSYCHIATRIC: Oriented. Alert, no evidence of depression. IMPRESSION: Refractory macrocytic anemia compatible with myelodysplasia. ASSESSMENT AND PLAN: It is quite likely that this patient has a myelodysplasia that will require an intervention. The diagnosis will need to be confirmed by bone marrow aspirate and biopsy, and this might best be obtained after she is discharged. It is most appropriate to proceed with transfusion. Needed laboratory studies have been ordered; those that are pending will be carefully reviewed. SONJAD
[2019-11-16] MEDS: DIGOXIN 0.125 MG TAB PO SCH (16:12)
[2019-11-16] MEDS ORDERED: Nursing to Pharmacy Communication ONE (17:56)
[2019-11-16 18:28] LABS: Hemoglobin 8.5 g/dL (12.0-16.0); Reticulocyte % 1.7 % (0.5-2.0); Reticulocytes # 0.04 10^6/uL (0.02-0.10)
[2019-11-16] MEDS ORDERED: INSULIN GLARGINE SOLOSTAR 100 UNITS/ML 3 ML PEN SC SCH (21:00)
--- NOTE | 2019-11-16 22:59 | Hospitalist Progress Note ---
Date of Service November 16, 2019 Assessment & Plan (1) Anemia: 79yo C female presenting with symptomatic anemia. Patient with macrocytic anemia, Hgb=5.6, Hct=17.4, NNB=433.8 (Previously 12.3, 37.8 and 106, respectively on 08/24/18). Stool brown and Heme negative per ER evaluation. -Admit to medical floor -Awaiting peripheral smear consultation -Check B12 and Folic Acid levels -Transfuse 3u PRBCs, Repeat hemoglobin was at goal. WILL F.U IN am. Appears it can be a myelodysplasia picture vs hemolysis. -GI consultation appreciated (2) Hypertension: Blood pressure stable -Continue Diltiazem and Metoprolol -Continue to monitor (3) Atrial fibrillation: Patient bradycardic at 53bpm. She follows with Dr. Villaseñor and state that her medications for HR have recently been decreased -Will decrease Diltiazem from 240mg po daily to 120mg po daily and monitor effects -Continue Metoprolol 50mg po BID -Continue Digoxin - check level -No anticoagulation given remote history of suspected GIB, acute presentation of symptomatic anemia. Patient is higher risk for CVA given age, DM, HTN (4) Diabetes: Patient presently on 70/30 BID. She will be NPO for now. -Appreciate Pharmacy assistance in dosing insulin -Glargine 25u x 1 -Novolog q 4 hours as needed, goal BS 110 - 140 F/E/N -Heplock. Monitor electrolytes, continue PO Klor-Con BID. NPO for now Ppx - SCDs Code - Full Dispo - Admit to medical floor Admission and Anticipated Discharge Date Admission Date: November 15, 2019 Subjective Patient reports no new symptoms. She tolerated the blood transfusion. Patient denies nausea, vomiting, diarrhea, blood in stools. Patient reports having extended discussion with map compiler. Review of Systems Review of Systems: All systems reviewed & are unremarkable except as noted in HPI & below Physical Exam Physical Exam: General: patient resting comfortably, NAD, non-toxic in appearance, AA&O x 4 Skin: warm, dry, intact, no rashes or lesions, +Pallor of skin/conjunctiva/oral mucosa HEENT: NC/AT, PERRL, EOMI, anicteric sclera, conjunctiva without injection, external ear normal to inspection and nontender, nares patent, moist mucus membranes, dentition intact, no oropharyngeal lesions, neck supple, trachea midline, no LAD, no thyromegaly, no JVD Heart: +S1/S2, irregularly irregular, bradycardic, no m/r/g Lungs: equal air entry bilaterally, no rales/rhonchi/wheezes, mildly diminished in bilateral bases Abd: +BS, soft, NT/ND, no masses/organomegaly/ascites Ext: warm, 2+ pulses in UE/LE bilaterally, no clubbing/cyanosis or edema Neuro: nonfocal, patient AA&O x 4, speech intact, no facial droop, moving all extremities on command with equal strength 5/5 Results & Data Results & Data ([facility]) Vital Signs (Past 12 Hours) Vital Signs Temp Pulse Pulse Resp BP BP Pulse Ox 11/16/19 20:38 70 148/71 H 11/16/19 16:12 70 11/16/19 15:18 36.6 C 70 17 121/60 96 11/16/19 13:05 36.7 C 61 18 157/69 H 96 11/16/19 12:05 36.8 C 52 L 18 147/76 H 96 11/16/19 11:04 36.6 C 61 18 134/62 97 PG Care Time/CCT Total # of Minutes Spent Total Time Spent with Patient: Total time spent is greater than 50% in coordination of care (as documented) at patient's floor/unit and/or counseling patient: Coding Level of Care Code 81172 Subseq Hosp Care Lvl 3 Diagnoses Anemia D64.9 Anemia type: unspecified type Hypertension I10 Hypertension type: essential hypertension Atrial fibrillation I48.91 Atrial fibrillation type: unspecified Diabetes E11.9; Z79.4 Diabetes mellitus complication status: without complication Diabetes mellitus terminal press operator insulin use: with terminal press operator use Diabetes mellitus type: type 2 Time Spent (min) 35 (1) Diabetes Diabetes mellitus complication status: without complication Diabetes mellitus prison insulin use: with terminal press operator use Diabetes mellitus type: type 2 Qualified Code(s): E11.9 - Type 2 diabetes mellitus without complications; Z79.4 - correction (current) use of insulin (2) Anemia Anemia type: unspecified type Qualified Code(s): D64.9 - Anemia, unspecified (3) Atrial fibrillation Atrial fibrillation type: unspecified Qualified Code(s): I48.91 - Unspecified atrial fibrillation (4) Hypertension Hypertension type: essential hypertension Qualified Code(s): I10 - Essential (primary) hypertension
[2019-11-17] MEDS: PANTOprazole 40 MG in DEXTROSE 5% 100 ML IV SCH ×4 (01:24→11:46)
[2019-11-17] MEDS: METOPROLOL TARTRATE 50 MG TAB PO SCH ×2 (09:39→21:05)
[2019-11-17] MEDS: predniSONE 5 MG TAB PO SCH (09:39)
[2019-11-17] MEDS: ESCITALOPRAM OXALATE 10 MG TAB PO SCH (09:39)
[2019-11-17] MEDS: dilTIAZem HCL 120 MG CAPCR PO SCH (09:39)
[2019-11-17] MEDS: POTASSIUM CHLORIDE 10 MEQ TABCR PO SCH ×2 (09:39→21:05)
[2019-11-17] MEDS: ATORVASTATIN 20 MG TAB PO SCH (09:39)
[2019-11-17] MEDS: BUMETANIDE 1 MG TAB PO SCH ×2 (09:39→18:07)
[2019-11-17] MEDS: INSULIN ASPART 100 UNITS/ML 3 ML PEN SC SCH ×4 (09:40→21:08)
[2019-11-17] MEDS: INSULIN HUMAN NPH SC SCH (10:04)
--- NOTE | 2019-11-17 11:32 | Pharmacy Report ---
Glycemic Control Progress Note - Date of Service November 17, 2019 - Scope Glycemic Pharmacist consulted for glycemic control to write orders per [facility] inpatient glycemic control protocol. - Objective Accuchecks BSG(last 24 hours):: 11/16/19 11/16/19 11/16/19 12:03 15:34 17:42 POC Glucose 136 H 160 H 153 H 11/16/19 11/17/19 21:01 08:06 POC Glucose 144 H 130 H HbA1c:: Hemoglobin A1c 6.5 % (4.5-5.6) H 11/16/19 05:47 - Recent Pertinent Medications The patient is currently receiving: * Basal insulin: Lantus 50 units X 1 WITH DINNER * Correctional Insulin: Novolog Correction per scale ACHS Goal Range: Low 110 mg/dL - High 140 mg/dL Correction Factor: 20 mg/dL/unit * Prandial insulin: Per carb ratio of 1 unit per 7 grams CHO consumed - Outpatient Anti-Diabetic Meds Novolog Mix 70/30 -- 100 units in the morning and 60 units with dinner (confirmed with patient) - Assessment & Plan ASSESSMENT: * See progress note from 11/16/2019 for more background info, in short: * Pt receiving SQ basal bolus insulin regimen for hyperglycemia secondary to baseline DM (outpatient regimen on hold). Patient now ordered a diet. * Patient is currently receiving an average of 57 units of insulin per day * 50 units of basal insulin * 7 units of prandial/correctional insulin * BSGs ranging 104 - 160 mg/dl over the past 24hrs * Changes needed to insulin regimen: * AM Fasting BSG = 130 mg/dl. This is in goal range for patient based on inpatient targets and co-morbidities. Will attempt to switch patient back to NPH today to allow for easier transition to outpatient regimen of Novolog Mix. Plan for around 60 units of basal today understanding that Lantus is still onboard but that 50 units was not sufficient. Expect basal requirements to increase substantially. * Post-prandial BSGs are in range therefore no changes needed to CF/CR. * Total daily dose = ?,. Unknown at this time will see how BSGs change with diet. PLAN FOR INPATIENT GLYCEMIC CONTROL: * Switch to NPH to 35 units SQ qAM plus 25 units with dinner * Continuing correction factor of 20 mg/dl/unit * Continuing carb ratio of 1 unit per 7 grams CHO consumed * Continuing goal range of Low 110 mg/dL - High 140 mg/dL Thank you.
[2019-11-17 12:48] LABS: Hematocrit (blood only) 22.7 % (37-47); Hemoglobin 7.6 g/dL (12.0-16.0); Mean Corpuscular Hgb Conc 33.5 g/dL (32-36); Mean Corpuscular Volume 104.6 fL (80-100); Nucleated RBC # (auto) 0.02 K/uL (0-0); Nucleated RBC % (auto) 0.7 %; Platelet Count 190 K/uL (130-400); Red Blood Count 2.17 M/uL (4.2-5.4); White Blood Count 3.63 K/uL (4.8-10.8)
[2019-11-17 13:05] LABS: Calcium 8.4 mg/dl (8.5-10.1); Creatinine Clr Calc Pharmacy 37.5 ml/min; Est GFR (African American) 41.9; Est GFR (Non-African American) 36.2; Potassium 3.4 mmol/L (3.5-5.1)
[2019-11-17] MEDS: DIGOXIN 0.125 MG TAB PO SCH (16:12)
[2019-11-17] MEDS ORDERED: INSULIN HUMAN NPH SC SCH (16:30)
[2019-11-17 18:21] LABS: Hematocrit (blood only) 23.5 % (37-47); Hemoglobin 7.8 g/dL (12.0-16.0)
[2019-11-17] MEDS ORDERED: CETIRIZINE HCL 10 MG TABLET PO ONE (19:39)
[2019-11-17] MEDS: PANTOprazole 40 MG TAB PO SCH (21:05)
--- NOTE | 2019-11-17 22:22 | Hospitalist Progress Note ---
Date of Service November 17, 2019 Assessment & Plan (1) Anemia: 79yo C female presenting with symptomatic anemia. Patient with macrocytic anemia, Hgb=5.6, Hct=17.4, XIY=130.8 (Previously 12.3, 37.8 and 106, respectively on 08/24/18). Stool brown and Heme negative per ER evaluation. -Admit to medical floor -concern over myelodysplasia, given her peripheral smear results. D/W heme/oncologist patient will need bone marrow biopsy as next step. -Transfuse 3u PRBCs, will transfuse 2 more to keep hemoglobin above 10. currently at 7 Appears it can be a myelodysplasia picture vs hemolysis. -GI consultation appreciated (2) Hypertension: Blood pressure stable -Continue Diltiazem and Metoprolol -Continue to monitor (3) Atrial fibrillation: Patient bradycardic at 53bpm. She follows with Dr. Villaseñor and state that her medications for HR have recently been decreased -Will decrease Diltiazem from 240mg po daily to 120mg po daily and monitor effects -Continue Metoprolol 50mg po BID -Continue Digoxin - check level -No anticoagulation given remote history of suspected GIB, acute presentation of symptomatic anemia. Patient is higher risk for CVA given age, DM, HTN May consider restarting anticoagulation but will hold off until heme workup completed. d/w patient, who agrees with plan. (4) Diabetes: Patient presently on 70/30 BID. She will be NPO for now. -Appreciate Pharmacy assistance in dosing insulin -Glargine 25u x 1 -Novolog q 4 hours as needed, goal BS 110 - 140 F/E/N -Heplock. Monitor electrolytes, continue PO Klor-Con BID. NPO for now Ppx - SCDs Code - Full Dispo - Admit to medical floor (5) Obesity: BMI above 40. recommend lifestyle modfications. Admission and Anticipated Discharge Date Admission Date: November 15, 2019 Subjective Patient reports no new symptoms. She states she feels better and has more energy than yesterday. She denies any new symptoms today. Review of Systems Review of Systems: All systems reviewed & are unremarkable except as noted in HPI & below Physical Exam Physical Exam: General: patient resting comfortably, NAD, non-toxic in appearance, AA&O x 4 Skin: warm, dry, intact, no rashes or lesions, +Pallor of skin/conjunctiva/oral mucosa HEENT: NC/AT, PERRL, EOMI, anicteric sclera, conjunctiva without injection, external ear normal to inspection and nontender, nares patent, moist mucus membranes, dentition intact, no oropharyngeal lesions, neck supple, trachea midline, no LAD, no thyromegaly, no JVD Heart: +S1/S2, irregularly irregular, no m/r/g Lungs: equal air entry bilaterally, no rales/rhonchi/wheezes, mildly diminished in bilateral bases Abd: +BS, soft, NT/ND, no masses/organomegaly/ascites Ext: warm, 2+ pulses in UE/LE bilaterally, no clubbing/cyanosis or edema Neuro: nonfocal, patient AA&O x 4, speech intact, no facial droop, moving all extremities on command with equal strength 5/5 Results & Data Results & Data ([facility]) Vital Signs (Past 12 Hours) Vital Signs Temp Pulse Pulse Resp BP Pulse Ox 11/17/19 21:04 63 145/74 H 11/17/19 16:12 55 L 11/17/19 15:48 37.1 C 55 L 16 130/67 94 PG Care Time/CCT Total # of Minutes Spent Total Time Spent with Patient: Total time spent is greater than 50% in coordination of care (as documented) at patient's floor/unit and/or counseling patient: Coding Level of Care Code 11322 Subseq Hosp Care Lvl 3 Diagnoses Anemia D64.9 Anemia type: unspecified type Hypertension I10 Hypertension type: essential hypertension Atrial fibrillation I48.91 Atrial fibrillation type: unspecified Diabetes E11.9; Z79.4 Diabetes mellitus complication status: without complication Diabetes mellitus custodial insulin use: with termite exterminator use Diabetes mellitus type: type 2 Obesity E66.9 Time Spent (min) 35 (1) Diabetes Diabetes mellitus complication status: without complication Diabetes mellitus termite exterminator insulin use: with custodial use Diabetes mellitus type: type 2 Qualified Code(s): E11.9 - Type 2 diabetes mellitus without complications; Z79.4 - intermediate school teacher (current) use of insulin (2) Anemia Anemia type: unspecified type Qualified Code(s): D64.9 - Anemia, unspecified (3) Atrial fibrillation Atrial fibrillation type: unspecified Qualified Code(s): I48.91 - Unspecified atrial fibrillation (4) Hypertension Hypertension type: essential hypertension Qualified Code(s): I10 - Essential (primary) hypertension
[2019-11-17] MEDS ORDERED: SODIUM CHLORIDE 0.9% 250 ML IV PRN (22:23)
[2019-11-18] MEDS ORDERED: INSULIN HUMAN NPH SC SCH ×2 (07:30→16:30)
[2019-11-18 07:48] LABS: BUN Creatinine Ratio 15.3 (10-20); Calcium 8.7 mg/dl (8.5-10.1); Creatinine Clr Calc Pharmacy 34.1 ml/min; Est GFR (African American) 37.3; Est GFR (Non-African American) 32.2; Potassium 3.5 mmol/L (3.5-5.1)
[2019-11-18 08:11] LABS: Hematocrit (blood only) 29.8 % (37-47); Hemoglobin 10.1 g/dL (12.0-16.0); Mean Corpuscular Hemoglobin 34.4 pg (25-34); Mean Corpuscular Hgb Conc 33.9 g/dL (32-36); Mean Corpuscular Volume 101.4 fL (80-100); Nucleated RBC # (auto) 0.03 K/uL (0-0); Nucleated RBC % (auto) 0.7 %; Platelet Count 155 K/uL (130-400); RDW Coefficient of Variation 27.9 % (11.5-14.5); RDW Standard Deviation 92.3 fL (36.4-46.3); Red Blood Count 2.94 M/uL (4.2-5.4); White Blood Count 4.56 K/uL (4.8-10.8)
[2019-11-18 08:15] LABS: ALC (manual) 1.14 K/uL (1.2-3.4); ANC (manual) 3.34 K/uL (1.4-6.5); Anisocytosis Present; Blast # (manual) 0.04 K/uL (0-0); Blast Cells % (manual) 0.9 %; Lymphocytes # (manual) 1.14 K/uL (1.2-3.4); Monocytes # (manual) 0.04 K/uL (0.11-0.59); Monocytes % (manual) 0.9 %; Neutrophils # (manual) 3.34 K/uL (1.4-6.5); Neutrophils % (manual) 73.2 %; Ovalocytes 1+
[2019-11-18] MEDS ORDERED: CETIRIZINE HCL 10 MG TABLET PO SCH (09:00)
[2019-11-18] MEDS: BUMETANIDE 1 MG TAB PO SCH (09:02)
[2019-11-18] MEDS: POTASSIUM CHLORIDE 10 MEQ TABCR PO SCH (09:03)
[2019-11-18] MEDS: dilTIAZem HCL 120 MG CAPCR PO SCH (09:03)
[2019-11-18] MEDS: METOPROLOL TARTRATE 50 MG TAB PO SCH (09:04)
[2019-11-18] MEDS: ATORVASTATIN 20 MG TAB PO SCH (09:04)
[2019-11-18] MEDS: ESCITALOPRAM OXALATE 10 MG TAB PO SCH (09:04)
[2019-11-18] MEDS: PANTOprazole 40 MG TAB PO SCH (09:05)
[2019-11-18] MEDS: INSULIN ASPART 100 UNITS/ML 3 ML PEN SC SCH ×2 (09:07→13:08)
[2019-11-18] MEDS: INSULIN HUMAN NPH SC SCH (09:08)
[2019-11-18] MEDS: predniSONE 5 MG TAB PO SCH (10:14)
--- NOTE | 2019-11-18 10:20 | Pharmacy Report ---
Glycemic Control Progress Note - Date of Service November 18, 2019 - Scope Glycemic Pharmacist consulted for glycemic control to write orders per [facility] inpatient glycemic control protocol. - Objective Accuchecks BSG(last 24 hours):: 11/17/19 11/17/19 11/17/19 07:20 12:05 17:13 Glucose 109 H POC Glucose 167 H 178 H 11/17/19 11/18/19 11/18/19 21:01 06:59 08:19 Glucose 99 POC Glucose 164 H 100 H HbA1c:: Hemoglobin A1c 6.5 % (4.5-5.6) H 11/16/19 05:47 - Recent Pertinent Medications The patient is currently receiving: * Basal insulin: NPH 35 units in AM and 25 units with dinner * Correctional Insulin: Novolog Correction per scale ACHS Goal Range: Low 110 mg/dL - High 140 mg/dL Correction Factor: 20 mg/dL/unit * Prandial insulin: Per carb ratio of 1 unit per 7 grams CHO consumed - Outpatient Anti-Diabetic Meds Novolog Mix 70/30 --- 100 units in the morning and 60 units in the evening - Assessment & Plan ASSESSMENT: * See progress note from 11/16/2019 for more background info, in short: * Pt receiving SQ basal bolus insulin regimen for hyperglycemia secondary to baseline DM (outpatient regimen on hold). * Patient is currently receiving an average of 89 units of insulin per day * 60 units of basal insulin * 29 units of prandial/correctional insulin * BSGs ranging 130 - 178 mg/dl over the past 24hrs * Changes needed to insulin regimen: * AM Fasting BSG = 100 mg/dl. This is in goal range for patient based on inpatient targets and co-morbidities. Therefore Basal insulin will be reduced from 60 units/day to 50 units/day. * Post-prandial BSGs are in range therefore no changes needed to CF/CR. * Total daily dose = 70-80 units. PLAN FOR INPATIENT GLYCEMIC CONTROL: * Decreasing NPH to 30 units in the morning and 20 units with dinner * Continuing correction factor of 20 mg/dl/unit * Continuing carb ratio of 1 unit per 7 grams CHO consumed * Continuing goal range of Low 110 mg/dL - High 140 mg/dL RECOMMENDATIONS FOR DISCHARGE: * Patient's HbA1C is most likely skewed due to anemia. * Recommend following along with provider with a BSG log to adjust insulin. Thank you.
--- NOTE | 2019-11-24 23:59 | Discharge Summary ---
Date of Service November 18, 2019 Admission HPI Per Admitting Provider Carmen Skaggs is a 79yo C female with history ofAF, HTN, DM, prior malignancy presenting with 1.5 - 2 weeks of progressive FUENTES, weakness and fatigue. Also with palpitations and nausea experienced with exertion. She denies CP, syncope or presyncope but has had some lightheadedness with positional changes. She denies melena/hematochezia but reports that she started taking an iron pill and MVI recently which has resulted in slightly darker stool color. She denies hematuria, vaginal bleeding, bruising. She has noticed that she looks pale but denies jaundice/icterus. No additional complaints at this time. She denies vomiting Patient had a similar episode occur in 2017. She was on Eliquis at that time for her chronic atrial fibrillation. She developed symptomatic anemia requiring blood transfusion. She had an EGD and Colonoscopy performed to work up her anemia by Dr. Sanchez on 05/29/17./ Her Colonoscopy revealed multiple small mouthed diverticula in the sigmoid as well as non-bleeding internal hemorrhoids. EGD with small hiatal hernia, multiple polyps in the gastric fundus with no stigmata of recent bleeding. Localized inflammation in the gastric antrum. ER Course: Tylenol, Protonix, Transfusion 3u PRBCs started Principal Diagnosis anemia Discharge Exam General: patient resting comfortably, NAD, non-toxic in appearance, AA&O x 4 Skin: warm, dry, intact, no rashes or lesions, +Pallor of skin/conjunctiva/oral mucosa HEENT: NC/AT, PERRL, EOMI, anicteric sclera, conjunctiva without injection, external ear normal to inspection and nontender, nares patent, moist mucus membranes, dentition intact, no oropharyngeal lesions, neck supple, trachea midline, no LAD, no thyromegaly, no JVD Heart: +S1/S2, irregularly irregular, no m/r/g Lungs: equal air entry bilaterally, no rales/rhonchi/wheezes, mildly diminished in bilateral bases Abd: +BS, soft, NT/ND, no masses/organomegaly/ascites Ext: warm, 2+ pulses in UE/LE bilaterally, no clubbing/cyanosis or edema Neuro: nonfocal, patient AA&O x 4, speech intact, no facial droop, moving all extremities on command with equal strength 5/5 Discharge Data Allergies Allergy/AdvReac Type Severity Reaction Status Date / Time hydrocodone Allergy Mild UNKNOWN Verified 11/15/19 21:18 "HAPPENED LONG TIME AGO" phenol Allergy Unknown LOCALIZED Verified 11/15/19 21:18 RASH AT INJECTION SITE protamine Allergy Unknown LOCALIZED Verified 11/15/19 21:18 RASH AT INJECTION SITE sodium phosphate Allergy Unknown LOCALIZED Verified 11/15/19 21:18 RASH AT INJECTION SITE zinc Allergy Unknown LOCALIZED Verified 11/15/19 21:18 RASH AT INJECTION SITE hydroxychloroquine AdvReac Unknown "BURPED Verified 11/15/19 21:18 FOR DAYS AND TORE MY STOMACH UP" Consultations 11/15/19 21:08 ED Decision to Admit Stat 11/16/19 00:50 Consult Gastroenterology Routine 11/16/19 09:12 Consult Oncology Routine Hospital Course (1) Anemia: 79yo C female presenting with symptomatic anemia. Patient with macrocytic anemia, Hgb=5.6, Hct=17.4, INI=557.8 (Previously 12.3, 37.8 and 106, respectively on 08/24/18). Stool brown and Heme negative per ER evaluation. -Admit to medical floor -concern over myelodysplasia, given her peripheral smear results. D/W heme/oncologist patient will need bone marrow biopsy as next step. -Transfuse 5u PRBCs, improved to 10, Appears it can be a myelodysplasia picture vs hemolysis. -GI consultation appreciated: doubt that patient had GI bleed. D/W onc, may restart blood thinners as patient has high chadsvasc score. will need to get bone marrow. will recheck CBC in a few days (2) Hypertension: Blood pressure stable -Continue Diltiazem and Metoprolol -Continue to monitor (3) Atrial fibrillation: Patient bradycardic at 53bpm. She follows with Dr. Villaseñor and state that her medications for HR have recently been decreased -Will decrease Diltiazem from 240mg po daily to 120mg po daily and monitor effects -Continue Metoprolol 50mg po BID -Continue Digoxin - check level -No anticoagulation given to possible remote history of suspected GIB, acute presentation of symptomatic anemia. Patient is higher risk for CVA given age, DM, HTN. will restart anticoagulation. d/w patient, who agrees with plan. (4) Diabetes: restart home regimen. (5) Obesity: BMI above 40. recommend lifestyle modfications. Total Time Total Time Spent Total Time Spent (In Minutes): 32 Discharge Plan Discharge Items Patient Disposition: Home - Self-Care Reason For Visit: SYMPTOMATIC ANEMIA Discharge Diagnosis: Symptomatic Anemia Condition on Discharge: Fair Activity: Resume your previous activity Non-emergency contact: Primary Care Provider Call non-emergency contact if: you have any medication questions Follow-up/Referrals: Marito Somers MD [Primary Care Provider] - 11/22/19 1:30 pm (Please, follow up with Dr. Bassam Cardenas on ThursdayNovember 21 at 1:30 pm. *If you need to change this appointment, call the office at [phone].) Bjorn Denton MD [Physician] - 12/05/19 9:40 am (Please, follow up at [facility] with Dr. Bjorn Denton for a bone marrow biopsy on ThursdayDecember 04 at 9:40 am. *The Cancer Center is located in the rear of this hospital. You will come down hospital drive, bear to the right, go thru the [employer] screening, continue behind the hospital, park behind the hospital in [address], and enter via [facility]. If you have any questions or need to change this appointment, call the office at [phone] Ana, the nurse from the Cancer Center, will call you next week regarding any prep including medications to hold, prior to the procedure. Please, remember to discuss the Xarelto with her. Please, have someone drive you to and from this appointment. ) Diet: Carb Consistent or DM2 Addtl Attending Provider Instructions: You have been hospitalized for an acute medical problem: anemia. During your stay at [facility], we have made an effort to correct the problem that brought you to the hospital while keeping you as comfortable as possible. You required blood transfusions to keep your blood count above 10. Your discharge instructions will include directions for any medications you should take after leaving the hospital. Please make sure you see your Primary Care Provider as part of your follow up plan. Will recommend checking blood count in 3 days. Recommend holding xarelto 48 hours before bone marrow biopsy and 24 hours after. You will have a bone marrow biopsy scheduled later this month. F/U with PCP in 1-2 weeks Pending Studies at Discharge: No Stand-Alone Forms: My [facility], Smoking Cessation Medications and DC Order Prescriptions: New Xarelto 20 mg tablet 20 mg PO PM Qty: 30 RF: 0 Continued rabeprazole 20 mg tablet,delayed release (DR/EC) 20 mg PO DAILY RF: 0 atorvastatin [Lipitor] 20 mg tablet 20 mg PO DAILY RF: 0 metoprolol tartrate [Lopressor] 100 mg tablet 50 mg PO BID RF: 0 prednisone 5 mg tablet 5 mg PO DAILY RF: 0 diltiazem HCl 240 mg Capsule,Extended Release 24 Hr 240 mg PO DAILY RF: 0 potassium chloride [Klor-Con 10] 10 mEq tablet extended release 30 meq PO BID RF: 0 tramadol [Ultram] 50 mg tablet 50 mg PO Q6 PRN (Reason: Pain) RF: 0 bumetanide 1 mg tablet 2 mg PO BID RF: 0 digoxin [Digox] 125 mcg (0.125 mg) tablet 125 mcg PO DAILY RF: 0 escitalopram oxalate [Lexapro] 10 mg tablet 10 mg PO DAILY RF: 0 insulin asp prt-insulin aspart [Novolog Mix 70-30FlexPen U-100] 100 unit/mL (70-30) insulin pen 100 unit SUBCUT QAM RF: 0 insulin asp prt-insulin aspart [Novolog Mix 70-30FlexPen U-100] 100 unit/mL (70-30) insulin pen 60 unit SUBCUT QPM RF: 0 allopurinol 300 mg tablet 300 mg PO DAILY RF: 0 Discharge Orders: Discharge Order (Routine); Ordered 11/18/19 Ordered By: Chao Baker/Other Patient Handouts: Diabetes Type 2 Managing Admission Data Admit Date/Time: 11/15/19 22:06 Attending Provider: Chao Lucero Admit Provider: Vicky De Leon Primary Care Provider: Marito Somers Other Providers: Vicky De Leon ; Luke Sanchez ; Chao Lucero Other Interventions: Discharge Summary Assessment (RN) Last Done: 11/18/19 16:08 DC Date/Time DO NOT enter until pt leaves facility: 11/18/19 16:56 Coding Level of Care Code D/C Day Management >30 mins Diagnoses Anemia D64.9 Anemia type: unspecified type Hypertension I10 Hypertension type: essential hypertension Atrial fibrillation I48.91 Atrial fibrillation type: unspecified Diabetes E11.9; Z79.4 Diabetes mellitus type: type 2 Diabetes mellitus snf insulin use: with snf use Diabetes mellitus complication status: without complication Obesity E66.9
== END 2019-11-18 16:56 | disposition home or self-care (01) | DRG 812 ==
LOC: ED 19:44 → SUATTDRO 22:06 → 3N 22:06 → 3E 11-18 00:29

== ENCOUNTER 2020-04-23 07:12 | Inpatient (IN) ==
[2020-04-23] MEDS ORDERED: PROCHLORPERAZINE 1 ML IV ONE (07:32)
[2020-04-23] MEDS ORDERED: SODIUM CHLORIDE 0.9% 1000ML 1,000 ML IV ONE (07:32)
[2020-04-23] MEDS ORDERED: FAMOTIDINE 20MG IV PUSH 20 MG/5 ML SYR IV STA (07:32)
--- NOTE | 2020-04-23 07:40 | Emergency Department Note ---
Impression & Plan COVID-19, Elevated troponin I level, Myelodysplastic syndrome with 5 q minus, Gastroenteritis, Acute hypokalemia, Hypomagnesemia ED Provider Note NAME: ANA MOBLEY AGE: 79 SEX: F ARRIVES VIA: Ambulance INFORMANT: Patient, ED PROVIDER(S): Francesco Lowery MD CHIEF COMPLAINT: Nausea, vomiting, diarrhea, Covid19 positive. PLAN: Disposition: Admit MEDICAL DECISION MAKING: The patient is a pleasant 79-year-old woman with a past medical history of atrial fibrillation on Eliquis only undergoing oral chemotherapy with REvlidmid for Myelodysplastic syndrome, diabetes, obesity who presents emergency department for evaluation of persistent nausea vomiting, diarrhea with inability to tolerate oral intake in the setting of being diagnosed with COVID-19 from presumed exposure from her sister and caregiver who presumably contracted the virus from her . She reports cough and congestion she initially experienced is mostly resolved. Patient denies chest pain, shortness of breath, or fevers. On arrival the patient is fatigued and ill-appearing but no acute distress, tempt 37.7 and otherwise stable vital signs. She appears clinically dry. Abdomen is benign. EKG with ST abnormality without overt ST elevation. CXR with multifocal bilateral airspace opacities c/w patient's covid19. WBC 2.9 with lymphopenia to 0.3 and platelets 119 decreased from prior. H/H similar to prior. Chemistry without acidosis. Cr. 1.4 similar to prior. Potassium 3.0 and magnesium 1.6 with repletion provided. Lactate wnl. AST 46, nonspecific. Troponin with marginal elevation at 0.06, likely demand in the setting of Covid19. Procalcitonin < 0.05 and so superimposed bacterial infection less likely at this time. CT abdomen pelvis demonstrates evidence of enteritis and further demonstrates basilar lung findings c/w Covid19. Given patients worsening GI symptoms with difficulty tolerating PO intake and mild troponin elevation reasonable to admit the patient for further management. Patient is agreeable. Case was discussed with Dr. Soto, [facility] [place] hospitalist, who will evaluate the patient for admission. Triage Nursing notes reviewed and agree them. Prior medical records reviewed Vital Signs: reviewed and remarkable for no significant abnormalities Differential diagnosis: Gastroenteritis, food borne illness, infections, appendicitis, diverticulitis, inflammatory bowel disease, obstruction, GI bleed, biliary pathology, volvulus, as well as other pathologies. ER treatment provided: See below. Diagnostics interpreted by me: ECG: Atrial fibrillation, 67 bpm, no ectopy, nonspecific ST and TW abnormality, no overt ST elevation. Cardiac Monitoring: An order for continuous cardiac monitoring was placed and demonstrated atrial fibrillation, 67 bpm, no ectopy. Laboratory studies: See below Imaging studies: XR chest 1V portable CLINICAL HISTORY: SEPSIS COMPARISON STUDY: Chest radiograph November 15, 2019. FINDINGS: Lung volumes are normal. There is a trace right pleural effusion. Moderate multifocal airspace opacities are noted, greater within the right lung. Note is made of cardiomegaly. There is no evidence for pulmonary edema. No pneumothorax is present. IMPRESSION: Moderate multifocal bilateral airspace opacities, greater within the right lung. The findings could reflect viral or bacterial pneumonia. Radiographic follow-up to ensure resolution is recommended. -- CT SCAN OF THE ABDOMEN AND PELVIS WITHOUT CONTRAST CLINICAL HISTORY: Covid19, n/v/d ABDOMINAL PAIN COMPARISON STUDY: 06/23/2018 TECHNIQUE: CT scan of the abdomen and pelvis was performed from the lung bases to the proximal femurs. Images are reviewed in the axial, sagittal, and coronal planes. IV contrast was not administered for this examination. A dose lowering technique was utilized adhering to the principles of ALARA. CT DOSE: 1066.29 mGycm FINDINGS: Lower chest: There are patchy bilateral pulmonary airspace opacities consistent with a multifocal pneumonia. There is a small right pleural effusion and trace left pleural effusion. There are coronary artery calcifications. Liver: The unenhanced liver is normal in size, contour, and attenuation. There is no intrahepatic biliary ductal dilatation. Gallbladder: Surgically absent Spleen: Normal in size and attenuation. Pancreas: Unremarkable. Adrenal glands: Unremarkable. Kidneys: There is a 33 mm hyperdense right renal lesion, likely representing a hyperdense cyst. There is a right renal cortical calcification. There is a 28 mm upper pole left renal cyst. There is no hydronephrosis. Bowel: There are no transition zones to indicate bowel obstruction. There is no evidence of acute diverticulitis. By history the appendix is surgically absent. There are scattered small bowel and colonic air-fluid levels, finding which may indicate enteritis. There is borderline bowel wall thickening involving the descending colon. Peritoneum: There is no intraperitoneal free air or abdominal ascites. Vasculature: The abdominal aorta is normal in course and caliber. Adenopathy: None. Pelvic viscera: The uterus is surgically absent. Skeletal structures: No destructive lesions are visualized. There is SI joint sclerosis. There are degenerative changes within the spine with severe multilevel spinal stenosis. There is a grade 1 spondylolisthesis of L3 on L4, and L4 on L5. IMPRESSION: 1. No evidence of bowel obstruction. No evidence of free air 2. Small bowel and colonic air-fluid levels. Borderline bowel wall thickening involving the descending colon. The findings are nonspecific may indicate enteritis or diarrheal state. 3. 33 mm hyperdense right renal cyst 4. Severe multilevel lumbar spinal stenosis 5. Multifocal pulmonary airspace opacities consistent with a multifocal pneumonitis. Consultation(s): Case was discussed with Dr. Soto, [facility] [place] hospitalist, who will evaluate the patient for admission. HPI: The patient is a pleasant 79-year-old woman with a past medical history of atrial fibrillation on Eliquis only undergoing chemotherapy for ? Myelodysplastic syndrome, diabetes, obesity who presents emergency department for evaluation of persistent nausea vomiting, diarrhea with inability to tolerate oral intake in the setting of being diagnosed with COVID-19 from presumed exposure from her sister and caregiver who presumably contracted the virus from her . Patient denies any cough, congestion, chest pain, shortness of breath, fevers. ROS: See above HPI for pertinent positives & negatives. A total of 10 systems reviewed and were otherwise negative. PAST MEDICAL HISTORY:See Below PAST SURGICAL HISTORY:See Below FAMILY HISTORY:See Below SOCIAL HISTORY:See Below HOME MEDICATIONS:See Below ALLERGIES:See Below VITALS:See Below PHYSICAL EXAMINATION: GENERAL: Awake, alert, fatigued/ill-appearing, in no distress HENT: Normocephalic, atraumatic. Oropharynx with dry mucous membranes and otherwise unremarkable. EYES: Normal conjunctiva. Sclera non-icteric. NECK: Supple. No nuchal rigidity. FROM. No JVD. RESPIRATORY: Clear to auscultation. CARDIAC: Regular rate, irregular rhythm. Extremities warm and well perfused. Pulses equal. ABDOMEN: Soft, non-distended. No tenderness to palpation. No rebound or guarding. No masses. RECTAL: Deferred. MUSCULOSKELETAL: Chest examination reveals no tenderness. The back is symmetrical on inspection without obvious abnormality. There is no CVA ten derness to palpation. No joint edema. LOWER EXTREMITIES: Calves are equal size bilaterally and non-tender. No edema. No discoloration. NEURO: Normal sensorium. No sensory or motor deficits noted. SKIN: No rash or jaundice noted. ED COURSE: Critical Care: I have personally spent greater than 35 minutes of critical care time in the direct management of this patient. This includes bedside care, interpretation of diagnostic studies, and testing, discussion with consultants, patient, and family members, and other required patient management activities. This 35 minutes is in excess of all separately billable procedures. Francesco Lowery MD Past Med/Surg History Medical History A-fib Diabetes GI bleed Hypertension Malignant neoplasm of central portion of female breast (10/01/11) "Left breast pain Finding of a left breast mass Status post biopsy revealing infiltrating ductal carcinoma Status post partial mastectomy and sentinel lymph node biopsy Pathologic stage [id number] Estrogen receptor positive, progesterone receptor positive, HER-2/abelardo negative Status post completion of radiation therapy 04/08/2012 received 6120 cGy" Surgical History History of hysterectomy History of lumpectomy Hx of cholecystectomy Family History Other Cancer Diabetes Social History Smoking Status: Never smoker Hx Alcohol Use: No Hx Substance Use: No Preferred Language: Danish Communication Ability: Effective 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 Beliefs That Will Affect Care: None Current Living Situation: Alone Other Information That Helps Us Care for You: No Feels Safe at Home: Yes Safety Concerns: Feels Safe At This Time Assistive Devices: Walker Allergies Allergies Allergy/AdvReac Type Severity Reaction Status Date / Time hydrocodone Allergy Mild UNKNOWN Verified 04/23/20 08:51 "HAPPENED LONG TIME AGO" phenol Allergy Unknown LOCALIZED Verified 04/23/20 08:51 RASH AT INJECTION SITE protamine Allergy Unknown LOCALIZED Verified 04/23/20 08:51 RASH AT INJECTION SITE sodium phosphate Allergy Unknown LOCALIZED Verified 04/23/20 08:51 RASH AT INJECTION SITE zinc Allergy Unknown LOCALIZED Verified 04/23/20 08:51 RASH AT INJECTION SITE hydroxychloroquine AdvReac Unknown "BURPED Verified 04/23/20 08:51 FOR DAYS AND TORE MY STOMACH UP" Home Meds Home Medications Medication Instructions Recorded Confirmed allopurinol 300 mg PO DAILY 11/15/19 04/23/20 atorvastatin [Lipitor] 20 mg PO DAILY 11/15/19 04/23/20 bumetanide 2 mg PO BID 11/15/19 04/23/20 digoxin [Digox] 125 mcg PO DAILY 11/15/19 04/23/20 insulin asp prt-insulin aspart 60 unit SUBCUT QPM 11/15/19 04/23/20 [Novolog Mix 70-30FlexPen U-100] insulin asp prt-insulin aspart 100 unit SUBCUT QAM 11/15/19 04/23/20 [Novolog Mix 70-30FlexPen U-100] metoprolol tartrate [Lopressor] 100 mg PO BID 11/15/19 04/23/20 prednisone 5 mg PO DAILY 11/15/19 04/23/20 rabeprazole [AcipHex] 20 mg PO DAILY 11/15/19 04/23/20 lenalidomide [Revlimid] 2.5 mg PO DAILY 03/11/20 04/23/20 rivaroxaban [Xarelto] 15 mg PO DAILY 03/11/20 04/23/20 diltiazem HCl [Cartia XT] 240 mg PO DAILY 04/23/20 04/23/20 potassium citrate 20 meq PO TID 04/23/20 04/23/20 Previous Rx's Medication Instructions Recorded tramadol 50 mg PO Q6H PRN #10 tab 03/11/20 Results & Data (ED) Vital Signs Vital Signs - 24 hr 04/23/20 07:15 04/23/20 08:34 04/23/20 09:36 Temperature 37.7 C H Temperature Source Oral Pulse Rate 72 Pulse Rate [Apical] 69 70 Pulse Rate from SpO2 Sensor Pulse Rhythm Regular Pulse Rhythm [Apical] Irregular Regular Pulse Strength Normal Pulse Strength [Apical] Normal Normal Respiratory Rate 22 22 22 Respiratory Effort / Characteristics Non-Labored Spontaneous Non-Labored Spontaneous Non-Labored Spontaneous Respiratory Depth Normal Normal Normal Respiratory Pattern Regular Regular Regular Blood Pressure 151/86 H Blood Pressure [Right Arm] 163/73 H 119/61 Blood Pressure Mean 107 Blood Pressure Mean [Right Arm] 103 80 Blood Pressure Position Lying Blood Pressure Position [Right Arm] Lying Lying Pulse Oximetry 95 95 94 Oxygen Delivery Method Room Air Room Air Room Air Sepsis Recent Fever Within 48 Hours Yes Sepsis New/Unexplained Change in Mental Status No Sepsis Action Taken by Nursing No Action Required 04/23/20 10:17 04/23/20 11:01 Temperature 39.3 C H Temperature Source Oral Pulse Rate 78 Pulse Rate [Apical] Pulse Rate from SpO2 Sensor 78 Pulse Rhythm Pulse Rhythm [Apical] Pulse Strength Pulse Strength [Apical] Respiratory Rate 24 Respiratory Effort / Characteristics Respiratory Depth Respiratory Pattern Blood Pressure 130/96 Blood Pressure [Right Arm] Blood Pressure Mean 116 Blood Pressure Mean [Right Arm] Blood Pressure Position Blood Pressure Position [Right Arm] Pulse Oximetry 95 Oxygen Delivery Method Sepsis Recent Fever Within 48 Hours Sepsis New/Unexplained Change in Mental Status Sepsis Action Taken by Nursing Laboratory Data Result diagrams: 04/23/20 07:34 04/23/20 07:34 Lab Results 04/23/20 04/23/20 04/23/20 Range/Units 07:34 07:34 07:34 WBC 2.92 L (4.8-10.8) K/uL RBC 3.43 L (4.2-5.4) M/uL Hgb 11.1 L (12.0-16.0) g/dL Hct 34.1 L (37-47) % MCV 99.4 (80-100) fL MCH 32.4 (25-34) pg MCHC 32.6 (32-36) g/dL RDW Std Deviation 62.7 H (36.4-46.3) fL RDW Coeff of Griffin 17.3 H (11.5-14.5) % Plt Count 116 L (130-400) K/uL MPV 10.9 H (7.4-10.4) fL Immature Gran % (Auto) 0.3 % Neut % (Auto) 76.7 % Lymph % (Auto) 10.3 % Ford % (Auto) 12.7 % Eos % (Auto) 0.0 % Baso % (Auto) 0.0 % Neut # (Auto) 2.24 (1.4-6.5) K/uL Lymph # (Auto) 0.30 L (1.2-3.4) K/uL Ford # (Auto) 0.37 (0.11-0.59) K/uL Eos # (Auto) 0.00 (0-0.5) K/uL Baso # (Auto) 0.00 (0-0.2) K/uL Immature Gran # (Auto) 0.01 (0.00-0.02) K/uL Ovalocytes 1+ PT 12.4 H (9.0-12.0) Seconds INR 1.2 H (0.9-1.1) APTT 38.7 H (21.0-31.0) Seconds PTT Ratio 1.4 Sodium 130 L (136-145) mmol/L Potassium 3.0 L (3.5-5.1) mmol/L Chloride 94 L (98-107) mmol/L Carbon Dioxide 27 (21-32) mmol/L Anion Gap 8.0 (3-11) BUN 20 H (7-18) mg/dl Creatinine 1.41 H (0.6-1.2) mg/dl Est Cr Clr Drug Dosing 36.4 ml/min Est GFR ( Amer) 41.5 Est GFR (Non-Af Amer) 35.8 BUN/Creatinine Ratio 13.8 (10-20) Glucose 88 (70-99) mg/dl Lactate (0.4-2.0) mmol/L Calcium 8.4 L (8.5-10.1) mg/dl Phosphorus 2.8 (2.5-4.9) mg/dl Magnesium 1.6 L (1.8-2.4) mg/dl Total Bilirubin 0.9 (0.2-1) mg/dl Direct Bilirubin 0.3 H (0-0.2) mg/dl AST 46 H (15-37) U/L ALT 46 (12-78) U/L Alkaline Phosphatase 86 (45-117) U/L Troponin I 0.064 H* (0-0.045) ng/ml Total Protein 6.9 (6.4-8.2) gm/dl Albumin 2.8 L (3.4-5.0) gm/dl Globulin 4.1 H (2.5-4.0) gm/dl Albumin/Globulin Ratio 0.7 L (0.9-2) Procalcitonin (0-0.5) ng/ml 04/23/20 04/23/20 Range/Units 07:34 07:34 WBC (4.8-10.8) K/uL RBC (4.2-5.4) M/uL Hgb (12.0-16.0) g/dL Hct (37-47) % MCV (80-100) fL MCH (25-34) pg MCHC (32-36) g/dL RDW Std Deviation (36.4-46.3) fL RDW Coeff of Griffin (11.5-14.5) % Plt Count (130-400) K/uL MPV (7.4-10.4) fL Immature Gran % (Auto) % Neut % (Auto) % Lymph % (Auto) % Ford % (Auto) % Eos % (Auto) % Baso % (Auto) % Neut # (Auto) (1.4-6.5) K/uL Lymph # (Auto) (1.2-3.4) K/uL Ford # (Auto) (0.11-0.59) K/uL Eos # (Auto) (0-0.5) K/uL Baso # (Auto) (0-0.2) K/uL Immature Gran # (Auto) (0.00-0.02) K/uL Ovalocytes PT (9.0-12.0) Seconds INR (0.9-1.1) APTT (21.0-31.0) Seconds PTT Ratio Sodium (136-145) mmol/L Potassium (3.5-5.1) mmol/L Chloride (98-107) mmol/L Carbon Dioxide (21-32) mmol/L Anion Gap (3-11) BUN (7-18) mg/dl Creatinine (0.6-1.2) mg/dl Est Cr Clr Drug Dosing ml/min Est GFR ( Amer) Est GFR (Non-Af Amer) BUN/Creatinine Ratio (10-20) Glucose (70-99) mg/dl Lactate 1.1 (0.4-2.0) mmol/L Calcium (8.5-10.1) mg/dl Phosphorus (2.5-4.9) mg/dl Magnesium (1.8-2.4) mg/dl Total Bilirubin (0.2-1) mg/dl Direct Bilirubin (0-0.2) mg/dl AST (15-37) U/L ALT (12-78) U/L Alkaline Phosphatase (45-117) U/L Troponin I (0-0.045) ng/ml Total Protein (6.4-8.2) gm/dl Albumin (3.4-5.0) gm/dl Globulin (2.5-4.0) gm/dl Albumin/Globulin Ratio (0.9-2) Procalcitonin < 0.05 (0-0.5) ng/ml Administered Medications Acetaminophen (Acetaminophen 325 Mg Tab) 650 mg PO Q4H PRN PRN Reason: Pain or Fever Stop: 05/23/20 18:14 Last Admin: 04/23/20 19:45 Dose: 650 mg Documented by: [id number] Insulin Aspart (Insulin Aspart 100 Units/Ml 3 Ml Pen) 0 units SC ACHS LEONA Stop: 05/23/20 18:14 Last Admin: 04/23/20 20:48 Dose: Not Given Documented by: [id number] Cosigned by: [id number] Admin: 04/23/20 19:59 Dose: 12 units Documented by: [id number] Cosigned by: [id number] Metoprolol Tartrate (Metoprolol Tartrate 100 Mg Tab) 100 mg PO BID LEONA Stop: 05/23/20 20:59 Last Admin: 04/23/20 20:13 Dose: 100 mg Documented by: [id number] Discontinued Medications Sodium Chloride (Nss 1000ml) 1,000 mls @ 999 mls/hr IV .Q1H1M ONE Stop: 04/23/20 08:32 Last Infusion: 04/23/20 08:49 Dose: 0 mls/hr Documented by: [id number] Admin: 04/23/20 07:49 Dose: 999 mls/hr Documented by: [id number] Famotidine (Pepcid 20mg Iv Push) 20 mg in 5 mls @ 2.5 mls/min IV NOW STA Stop: 04/23/20 07:33 Last Admin: 04/23/20 07:49 Dose: 2.5 mls/min Documented by: [id number] Prochlorperazine (Compazine) 1 mls @ 1 mls/min IV ONE ONE Stop: 04/23/20 07:33 Last Admin: 04/23/20 07:49 Dose: 1 mls/min Documented by: [id number] Potassium Chloride (K Compa / Wtr) 10 meq in 100 mls @ 100 mls/hr IV Q1H LEONA Stop: 04/23/20 11:44 Last Infusion: 04/23/20 15:05 Dose: 0 mls/hr Documented by: [id number] Admin: 04/23/20 11:30 Dose: 100 mls/hr Documented by: [id number] Infusion: 04/23/20 11:28 Dose: 100 mls/hr Documented by: [id number] Admin: 04/23/20 10:28 Dose: 100 mls/hr Documented by: [id number] Magnesium Sulfate/Dextrose (Magnesium Sulfate / D5w) 1 gm in 100 mls @ 100 mls/hr IV Q1H LEONA Stop: 04/23/20 11:40 Last Infusion: 04/23/20 15:05 Dose: 0 mls/hr Documented by: [id number] Admin: 04/23/20 11:30 Dose: 100 mls/hr Documented by: [id number] Infusion: 04/23/20 11:28 Dose: 100 mls/hr Documented by: [id number] Admin: 04/23/20 10:28 Dose: 100 mls/hr Documented by: [id number] Acetaminophen (Ofirmev) 1,000 mg in 100 mls @ 400 mls/hr IV NOW STA Stop: 04/23/20 09:56 Last Infusion: 04/23/20 11:58 Dose: 0 mls/hr Documented by: [id number] Admin: 04/23/20 10:17 Dose: 400 mls/hr Documented by: [id number] Discharge Plan Visit Data Chief Complaint: Illness ED Provider: Francesco Lowery Discharge Problem: COVID-19, Elevated troponin I level, Myelodysplastic syndrome with 5 q minus, Gastroenteritis, Acute hypokalemia, Hypomagnesemia Patient Disposition: Admitted As Inpatient Discharge Instructions Interventions: ED Discharge Assessment Last Done: 04/23/20 17:24
[2020-04-23 08:07] LABS: Hematocrit (blood only) 34.1 % (37-47); Hemoglobin 11.1 g/dL (12.0-16.0); Immature Granulocytes # (auto) 0.01 K/uL (0.00-0.02); Immature Granulocytes % (auto) 0.3 %; Lymphocytes % (auto) 10.3 %; Mean Corpuscular Hemoglobin 32.4 pg (25-34); Mean Corpuscular Hgb Conc 32.6 g/dL (32-36); Mean Corpuscular Volume 99.4 fL (80-100); Mean Platelet Volume 10.9 fL (7.4-10.4); Monocytes # (auto) 0.37 K/uL (0.11-0.59); Monocytes % (auto) 12.7 %; Neutrophils # (auto) 2.24 K/uL (1.4-6.5); Neutrophils % (auto) 76.7 %; Platelet Count 116 K/uL (130-400); RDW Coefficient of Variation 17.3 % (11.5-14.5); RDW Standard Deviation 62.7 fL (36.4-46.3); Red Blood Count 3.43 M/uL (4.2-5.4); White Blood Count 2.92 K/uL (4.8-10.8)
[2020-04-23 08:17] LABS: INR 1.2 (0.9-1.1); Partial Thromboplastin Ratio 1.4; Partial Thromboplastin Time 38.7 Seconds (21.0-31.0); Prothrombin Time 12.4 Seconds (9.0-12.0)
[2020-04-23 08:28] LABS: Albumin Level 2.8 gm/dl (3.4-5.0); BUN Creatinine Ratio 13.8 (10-20); Bilirubin Direct 0.3 mg/dl (0-0.2); Calcium 8.4 mg/dl (8.5-10.1); Creatinine Clr Calc Pharmacy 36.4 ml/min; Est GFR (African American) 41.5; Est GFR (Non-African American) 35.8; Magnesium 1.6 mg/dl (1.8-2.4)
--- NOTE | 2020-04-23 08:31 | CT Scan Report ---
CT SCAN OF THE ABDOMEN AND PELVIS WITHOUT CONTRAST CLINICAL HISTORY: Covid19, n/v/d ABDOMINAL PAIN COMPARISON STUDY: 06/23/2018 TECHNIQUE: CT scan of the abdomen and pelvis was performed from the lung bases to the proximal femurs . Images are reviewed in the axial, sagittal, and coronal planes. IV contrast was not administered fo r this examination. A dose lowering technique was utilized adhering to the principles of ALARA. CT DOSE: 1066.29 mGycm FINDINGS: Lower chest: There are patchy bilateral pulmonary airspace opacities consistent with a multifocal pne umonia. There is a small right pleural effusion and trace left pleural effusion. There are coronary a rtery calcifications. Liver: The unenhanced liver is normal in size, contour, and attenuation. There is no intrahepatic lola iary ductal dilatation. Gallbladder: Surgically absent Spleen: Normal in size and attenuation. Pancreas: Unremarkable. Adrenal glands: Unremarkable. Kidneys: There is a 33 mm hyperdense right renal lesion, likely representing a hyperdense cyst. There is a right renal cortical calcification. There is a 28 mm upper pole left renal cyst. There is no hy dronephrosis. Bowel: There are no transition zones to indicate bowel obstruction. There is no evidence of acute div erticulitis. By history the appendix is surgically absent. There are scattered small bowel and coloni c air-fluid levels, finding which may indicate enteritis. There is borderline bowel wall thickening i nvolving the descending colon. Peritoneum: There is no intraperitoneal free air or abdominal ascites. Vasculature: The abdominal aorta is normal in course and caliber. Adenopathy: None. Pelvic viscera: The uterus is surgically absent. Skeletal structures: No destructive lesions are visualized. There is SI joint sclerosis. There are de generative changes within the spine with severe multilevel spinal stenosis. There is a grade 1 spondy lolisthesis of L3 on L4, and L4 on L5. IMPRESSION: 1. No evidence of bowel obstruction. No evidence of free air 2. Small bowel and colonic air-fluid levels. Borderline bowel wall thickening involving the descendin g colon. The findings are nonspecific may indicate enteritis or diarrheal state. 3. 33 mm hyperdense right renal cyst 4. Severe multilevel lumbar spinal stenosis 5. Multifocal pulmonary airspace opacities consistent with a multifocal pneumonitis. ACT 112: Negative or not required by law. Electronically signed by: Sampson Carpio M.D. 04/23/2020 8:29 AM
[2020-04-23 08:38] LABS: Albumin Globulin Ratio 0.7 (0.9-2); Bilirubin,Total 0.9 mg/dl (0.2-1); Globulin 4.1 gm/dl (2.5-4.0); Phosphorus 2.8 mg/dl (2.5-4.9); Total Protein 6.9 gm/dl (6.4-8.2); Troponin I 0.064 ng/ml (0-0.045)
--- NOTE | 2020-04-23 08:38 | XRay Report ---
XR chest 1V portable CLINICAL HISTORY: SEPSIS COMPARISON STUDY: Chest radiograph November 15, 2019. FINDINGS: Lung volumes are normal. There is a trace right pleural effusion. Moderate multifocal airsp laurel opacities are noted, greater within the right lung. Note is made of cardiomegaly. There is no george dence for pulmonary edema. No pneumothorax is present. IMPRESSION: Moderate multifocal bilateral airspace opacities, greater within the right lung. The fin dings could reflect viral or bacterial pneumonia. Radiographic follow-up to ensure resolution is alejandra mmended. ACT 112: Negative or not required by law. Electronically signed by: Destin Gandara M.D. 04/23/2020 8:37 AM
[2020-04-23 08:40] LABS: Ovalocytes 1+
[2020-04-23] MEDS ORDERED: ACETAMINOPHEN 1,000 MG/100 ML VIAL IV STA (09:42)
--- NOTE | 2020-04-23 10:21 | Electrocardiogram Report ---
Test Reason : Blood Pressure : / mmHG Vent. Rate : 067 BPM Atrial Rate : 060 BPM P-R Int : 000 ms QRS Dur : 090 ms QT Int : 414 ms P-R-T Axes : 000 046 268 degrees QTc Int : 437 ms Poor data quality, interpretation may be adversely affected Atrial fibrillation Cannot rule out Anterior infarct , age undetermined Abnormal ECG When compared with ECG of 15-NOV-2019 20:34, QT has lengthened Confirmed by Praneeth Dowell ([id number]) on 04/23/2020 10:20:33 AM Referred By: REFERRED SELF Confirmed By:Praneeth Dowell
[2020-04-23] MEDS: POTASSIUM CHLORIDE / WTR 10 MEQ/100 ML PLCT IV SCH ×2 (10:28→11:30)
[2020-04-23] MEDS: MAGNESIUM SULFATE / D5W 1 GM/100 ML BAG IV SCH ×2 (10:28→11:30)
--- NOTE | 2020-04-23 10:31 | History & Physical Report ---
Date of Service April 23, 2020 Assessment & Plan (1) Sepsis: SIRS criteria with fever and leukopenia. Suspected source enteritis versus COVID-19 pneumonia -no antibiotics required. Lactate 1.1. On admission will avoid aggressive fluid resuscitation due to hemodynamically stable, creatinine at baseline and usually on diuretics. Follow-up blood cultures. (2) Gastroenteritis: Imodium as needed for diarrhea Ondansetron as needed for nausea/vomiting (3) COVID-19: Remdesivir, convalescent plasma, dexamethasone held due to lack of hypoxia and high risk of secondary bacterial infection. CRP, LDH, troponin, D-dimer, ferritin, CPK with a.m. labs for severity monitoring. Airborne isolation Acetaminophen as needed for fever (4) Fatigue: And generalized weakness. Secondary to COVID-19 diagnosis. PT eval and treat (5) Diabetes: HbA1c 6.9 in January. Repeat with a.m. labs. Home dosing NovoLog 7030 mix 140 units every morning, 60 units every afternoon. Last dose 04/22 qam. Glucose 88 in ER. We will hold off basal dosing until further [id number] glucose measurements throughout the day. NovoLog sliding scale, aim 110-140, correction 6, carb ratio 3. (6) Atrial fibrillation: Continue rate control with digoxin 125 mcg p.o. daily, metoprolol tartrate 100 mg p.o. twice daily. Hold diltiazem ER 240 mg p.o. daily pending rate and blood pressure measurements throughout the day. Continue Xarelto 15 mg p.o. daily for anticoagulation. (7) Hypertension: Metoprolol and diltiazem as above for rate control. Will hold Bumex for today and restarted 2 mg p.o. daily tomorrow (usually on 2 mg p.o. twice daily) with hold parameters for hypotension. (8) Elevated troponin I level: Suspected demand ischemia in the setting of COVID-19 diagnosis and dehydration. (9) Rheumatoid arthritis: Unclear diagnosis at the present time. Requested outpatient rheumatology notes. Continue prednisone 5 mg p.o. daily although unclear whether steroids are for this purpose. (10) Chronic steroid use: Unclear reason for chronic steroid use from my discussion with the patient. We will continue her usual prednisone 5 mg p.o. daily on admission. If hypotensive consider stress dose steroids. (11) Myelodysplastic syndrome with 5 q minus: Hold Revlimid in setting of COVID-19 diagnosis as above and consult hematology for further advice regarding this. (12) Pancytopenia due to chemotherapy: Revlimid versus virally induced. Monitor with CBC in a.m. Consult hematology as above. (13) Lumbar spinal stenosis: Baseline mobility with walker. Continue tramadol 50 mg p.o. every 6 hourly as needed for pain control PT eval and treat (14) DVT prophylaxis: Continue Xarelto as above Admission and Anticipated Discharge Date Admission Date: 04/23/2020 History of Present Illness Chief Complaint: Cough, nausea, vomiting , diarrhea Primary Care Provider: Marito Somers MD Carmen Skaggs is a 79 year old female with Atrial fibrillation, myelodysplastic syndrome, HTN and T2DM who presents to the ER with cough, nausea, vomiting, diarrhea. She has a known diagnosis of COVID-19 with positive nasopharyngeal SARS-CoV-2 PCR on 04/17. She reports symptoms for the last 2 weeks including cough and fevers. She notes she has been getting progressively worse, more fatigued and weaker over the last week. No abdominal pain, melena. Eating and drinking only small amounts. Diarrhea is liquid brown, no recent antibiotics or history of c. diff. She is taking all her medications as prescribed except for insulin due to hypoglycemia last night (last dose Novolog 70/30 yesterday morning 140 units) but she did not take any medications this morning. She takes bumex 2mg PO BID although notes no significant history of heart failure or pulmonary edema outside of atrial fibrillation with RVR episodes. Discussed care with her sister over the phone who reports she is also positive with COVID-19 and notes the patient had significant decline over the last 2 days to the point she felt she was unable to currently cope at home. Of note she had a recent hospitalization in November for symptomatic macrocytic anemia. She required 5 units packed red blood cells during this admission. Suspected myelodysplastic syndrome versus hemolysis with plan for outpatient bone marrow biopsy. I am unclear on the results of this however last hematology note reports diagnosis of myelodysplasia with 5q minus c deletion and she was started on Revlimid for approximately the last 4-6 weeks with good response. In the ER small bowel enteritis/diarrheal state noted on CT abdomen/pelvis without IV contrast. Chest x-ray consistent with multifocal pneumonia. Anemia at baseline. Leukopenia and thrombocytopenia consistent with COVID-19 di agnosis. Creatinine at baseline. Glucose 88. Lactate 1.1. Multiple electrolyte abnormalities including hyponatremia, hypokalemia, hypomagnesemia. Procalcitonin negative. Troponin I mildly elevated at 0.064. EKG -atrial fibrillation with rates 67. No acute ischemic changes. In the ER she was given Mg sulphate 2g IV, KCl 20meq IV, 1L NSS bolus, Famotidine 20mg IV, Acetaminophen 1g IV, Compazine 5mg IV. She was referred to medicine for COVID-19, hypokalemia, hypomagnesemia, gastroenteritis for admission. Allergies Allergy/AdvReac Type Severity Reaction Status Date / Time hydrocodone Allergy Mild UNKNOWN Verified 04/23/20 08:51 "HAPPENED LONG TIME AGO" phenol Allergy Unknown LOCALIZED Verified 04/23/20 08:51 RASH AT INJECTION SITE protamine Allergy Unknown LOCALIZED Verified 04/23/20 08:51 RASH AT INJECTION SITE sodium phosphate Allergy Unknown LOCALIZED Verified 04/23/20 08:51 RASH AT INJECTION SITE zinc Allergy Unknown LOCALIZED Verified 04/23/20 08:51 RASH AT INJECTION SITE hydroxychloroquine AdvReac Unknown "BURPED Verified 04/23/20 08:51 FOR DAYS AND TORE MY STOMACH UP" Home Medications Home Medications Medication Instructions Recorded Confirmed Type allopurinol 300 mg PO DAILY 11/15/19 04/23/20 History atorvastatin [Lipitor] 20 mg PO DAILY 11/15/19 04/23/20 History bumetanide 2 mg PO BID 11/15/19 04/23/20 History digoxin [Digox] 125 mcg PO DAILY 11/15/19 04/23/20 History insulin asp prt-insulin aspart 60 unit SUBCUT QPM 11/15/19 04/23/20 History [Novolog Mix 70-30FlexPen U-100] insulin asp prt-insulin aspart 100 unit SUBCUT QAM 11/15/19 04/23/20 History [Novolog Mix 70-30FlexPen U-100] metoprolol tartrate [Lopressor] 100 mg PO BID 11/15/19 04/23/20 History prednisone 5 mg PO DAILY 11/15/19 04/23/20 History rabeprazole [AcipHex] 20 mg PO DAILY 11/15/19 04/23/20 History lenalidomide [Revlimid] 2.5 mg PO DAILY 03/11/20 04/23/20 History rivaroxaban [Xarelto] 15 mg PO DAILY 03/11/20 04/23/20 History tramadol 50 mg PO Q6H PRN #10 tab 03/11/20 04/23/20 Rx diltiazem HCl [Cartia XT] 240 mg PO DAILY 04/23/20 04/23/20 History potassium citrate 20 meq PO TID 04/23/20 04/23/20 History Past Med/Surg History Medical History A-fib Diabetes GI bleed Hypertension Malignant neoplasm of central portion of female breast (10/01/11) "Left breast pain Finding of a left breast mass Status post biopsy revealing infiltrating ductal carcinoma Status post partial mastectomy and sentinel lymph node biopsy Pathologic stage [id number] Estrogen receptor positive, progesterone receptor positive, HER-2/abelardo negative Status post completion of radiation therapy 04/08/2012 received 6120 cGy" Surgical History History of hysterectomy History of lumpectomy Hx of cholecystectomy Family History Other Cancer Diabetes Social History Smoking Status: Never smoker Hx Alcohol Use: No Hx Substance Use: No Preferred Language: Tamaz[place] Communication Ability: Effective 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 Required: No Beliefs That Will Affect Care: None Current Living Situation: Alone Other Information That Helps Us Care for You: No Feels Safe at Home: Yes Safety Concerns: Feels Safe At This Time Assistive Devices: Walker Review of Systems Review of Systems: All systems reviewed & are unremarkable except as noted in HPI & below Constitutional: + fever and + chills Respiratory: + cough and + dyspnea on exertion; no wheezing Cardiovascular: no chest pain Physical Exam Constitutional: well developed and + obese; + not well nourished and no acute distress Eyes: PERRL, conjunctivae normal, anicteric sclerae ENMT: Ears: no external ear abnormality Nose: no external nose abnormality Mouth: + dry oral mucous membranes Neck: trachea midline, no thyromegaly Respiratory: + abnormal respiratory effort (Poor inspiratory effort), no labored breathing, no retractions and does not use accessory muscles Auscultation: lungs clear to auscultation bilaterally; no crackles, no rales, no rhonchi and no wheezes Cardiovascular: Rate/Rhythm: regular rate and regular rhythm Gastrointestinal (Abdomen): Inspection/Auscultation: abdomen normal to inspection; abdomen not distended Percussion/Palpation: abdomen soft; abdomen nontender, no guarding and abdomen not rigid Musculoskeletal: no cyanosis or clubbing, extremities motor strength 5/5 Skin: no rashes, warm and dry Neurologic: moves all extremities and awake; no focal motor deficits and not confused Psychiatric: A+Ox3, euthymic affect Lymphatic: no cervical or axillary lymphadenopathy Results & Data Results & Data ([facility]) Vital Signs (Past 12 Hours) Vital Signs Temp Pulse Pulse Resp BP BP Pulse Ox 04/23/20 10:17 39.3 C H 04/23/20 09:36 70 22 119/61 94 04/23/20 08:34 69 22 163/73 H 95 04/23/20 07:15 37.7 C H 72 22 151/86 H 95 Diagnostic Findings XR chest 1V portable IMPRESSION: Moderate multifocal bilateral airspace opacities, greater within the right lung. The findings could reflect viral or bacterial pneumonia. Radiographic follow-up to ensure resolution is recommended. CT SCAN OF THE ABDOMEN AND PELVIS WITHOUT CONTRAST IMPRESSION: 1. No evidence of bowel obstruction. No evidence of free air 2. Small bowel and colonic air-fluid levels. Borderline bowel wall thickening involving the descending colon. The findings are nonspecific may indicate enteritis or diarrheal state. 3. 33 mm hyperdense right renal cyst 4. Severe multilevel lumbar spinal stenosis 5. Multifocal pulmonary airspace opacities consistent with a multifocal pneumonitis. Medications Administered ER Medications given: Mg sulphate 2g IV KCl 20meq IV 1L NSS bolus Famotidine 20mg IV Acetaminophen 1g IV Compazine 5mg IV ECG Indication: other (Irregular rhythm) Rate (beats per minute): 67 Rhythm: atrial fibrillation Findings: + other (T wave flattening in inferior-lateral leads) Comparison ECG Date: from (November 15, 2019) Change: no significant change Code Status & VTE Plan Code Status Full VTE Prophylaxis Plan VTE Prophylaxis will be ordered: Yes PG Care Time/CCT Total # of Minutes Spent Total Time Spent with Patient: Total time spent is greater than 50% in coordination of care (as documented) at patient's floor/unit and/or counseling patient: Coding Level of Care Code 32290 Initial Inpt Care Lvl 3 Diagnoses Sepsis A41.9 Gastroenteritis K52.9 COVID-19 U07.1 Fatigue R53.83 Fatigue type: unspecified Diabetes E11.9; Z79.4 Diabetes mellitus complication status: without complication Diabetes mellitus rn long term care insulin use: with rn long term care use Diabetes mellitus type: type 2 Atrial fibrillation I48.91 Atrial fibrillation type: unspecified Hypertension I10 Hypertension type: essential hypertension Elevated troponin I level R77.8 Rheumatoid arthritis M06.9 Chronic steroid use Myelodysplastic syndrome with 5 q minus D46.C Pancytopenia due to chemotherapy D61.810 Lumbar spinal stenosis M48.061 DVT prophylaxis Z29.9 (1) Fatigue Fatigue type: unspecified Qualified Code(s): R53.83 - Other fatigue (2) Diabetes Diabetes mellitus complication status: without complication Diabetes mellitus rn long term care insulin use: with rn long term care use Diabetes mellitus type: type 2 Qualified Code(s): E11.9 - Type 2 diabetes mellitus without complications; 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
[2020-04-23] MEDS ORDERED: LOPERAMIDE HCL 2 MG CAP PO PRN (18:15)
[2020-04-23] MEDS ORDERED: ONDANSETRON INJ 2 MG/ML 2 ML VIAL IV PRN (18:15)
[2020-04-23] MEDS ORDERED: GLUCOSE 40% GEL 15 GM TUBE PO PRN (18:15)
[2020-04-23] MEDS ORDERED: GLUCAGON FOR INJ 1 MG VIAL SQ PRN (18:15)
[2020-04-23] MEDS ORDERED: DEXTROSE 50% 50 ML SYRINGE IV PRN (18:15)
[2020-04-23] MEDS ORDERED: GLUCOSE 10 TABS/TUBE PO PRN (18:15)
[2020-04-23] MEDS ORDERED: ALUMINUM/MAGNESIUM SUSP 30 ML UDC PO PRN (18:15)
[2020-04-23] MEDS ORDERED: CARBOHYDRATES FOR HYPOGLYCEMIA PO PRN (18:15)
[2020-04-23] MEDS: ACETAMINOPHEN 325 MG TAB PO PRN (19:45)
[2020-04-23] MEDS: INSULIN ASPART 100 UNITS/ML 3 ML PEN SC SCH ×2 (19:59→20:48)
[2020-04-23] MEDS: METOPROLOL TARTRATE 100 MG TAB PO SCH (20:13)
[2020-04-23 23:03] LABS: Appearance Urine Clear (Clear); Bilirubin Urine Negative (Negative); Blood Urine 1+ (Negative); Color Urine Yellow; Glucose Urine UA Negative (Negative); Ketones Urine Negative (Negative); Leukocyte Esterase Urine Negative (Negative); Nitrite Urine Negative (Negative); Protein Urine 1+ (Negative); Specific Gravity Urine 1.011 (1.000-1.030); Urobilinogen Urine Negative (Negative)
[2020-04-23 23:19] LABS: Epithelial Cell Urine >30 /lpf (0-5)
[2020-04-23 23:20] LABS: Bacteria Urine 1+ (Negative); WBC Urine 0-5 /hpf (0-5)
[2020-04-24] MEDS ORDERED: traMADol HCL 50 MG TABLET PO PRN (05:48)
[2020-04-24] MEDS ORDERED: traMADol HCL 50 MG TABLET ONE (05:51)
[2020-04-24 07:00] LABS: Basophils # (auto) 0.01 K/uL (0-0.2); Basophils % (auto) 0.5 %; Hematocrit (blood only) 33.5 % (37-47); Hemoglobin 10.6 g/dL (12.0-16.0); Immature Granulocytes # (auto) 0.01 K/uL (0.00-0.02); Immature Granulocytes % (auto) 0.5 %; Lymphocytes % (auto) 13.7 %; Mean Corpuscular Hemoglobin 31.5 pg (25-34); Mean Corpuscular Hgb Conc 31.6 g/dL (32-36); Mean Corpuscular Volume 99.7 fL (80-100); Mean Platelet Volume 10.4 fL (7.4-10.4); Monocytes # (auto) 0.32 K/uL (0.11-0.59); Monocytes % (auto) 14.6 %; Neutrophils # (auto) 1.55 K/uL (1.4-6.5); Neutrophils % (auto) 70.7 %; Platelet Count 118 K/uL (130-400); RDW Coefficient of Variation 16.8 % (11.5-14.5); RDW Standard Deviation 62.7 fL (36.4-46.3); Red Blood Count 3.36 M/uL (4.2-5.4); White Blood Count 2.19 K/uL (4.8-10.8)
[2020-04-24 07:20] LABS: D Dimer 1650 ug/L FEU (0-500)
[2020-04-24 07:24] LABS: Albumin Level 2.6 gm/dl (3.4-5.0); BUN Creatinine Ratio 13.9 (10-20); C Reactive Protein 8.89 mg/dl (0-0.29); Calcium 8.3 mg/dl (8.5-10.1); Creatinine Clr Calc Pharmacy 38.7 ml/min; Est GFR (African American) 44.6; Est GFR (Non-African American) 38.5; Magnesium 2.1 mg/dl (1.8-2.4)
[2020-04-24 07:35] LABS: Albumin Globulin Ratio 0.7 (0.9-2); Bilirubin,Total 0.7 mg/dl (0.2-1); Ferritin 1244.6 ng/ml (8-388); Globulin 3.7 gm/dl (2.5-4.0); Phosphorus 2.6 mg/dl (2.5-4.9); Total Protein 6.3 gm/dl (6.4-8.2); Troponin I 0.102 ng/ml (0-0.045)
[2020-04-24 08:15] LABS: Estimated Average Glucose 131 mg/dl; Hemoglobin A1C 6.2 % (4.5-5.6)
[2020-04-24] MEDS ORDERED: BUMETANIDE 1 MG TAB PO SCH (09:00)
[2020-04-24] MEDS: INSULIN ASPART 100 UNITS/ML 3 ML PEN SC SCH ×4 (09:10→20:48)
[2020-04-24] MEDS: allopurinoL 300 MG TAB PO SCH (09:20)
[2020-04-24] MEDS: METOPROLOL TARTRATE 100 MG TAB PO SCH ×2 (09:20→20:37)
[2020-04-24] MEDS: ATORVASTATIN 20 MG TAB PO SCH (09:20)
[2020-04-24] MEDS: predniSONE 5 MG TAB PO SCH (09:21)
[2020-04-24] MEDS: PANTOprazole 40 MG TAB PO SCH (09:21)
[2020-04-24] MEDS ORDERED: POTASSIUM CHLORIDE CRTAB 20 MEQ TABCR PO ONE (09:30)
--- NOTE | 2020-04-24 16:20 | Hospitalist Progress Note ---
Date of Service April 24, 2020 Assessment & Plan (1) Sepsis: SIRS criteria with fever and leukopenia. Suspected source enteritis versus COVID-19 pneumonia -no antibiotics required. Lactate 1.1. no growth on cultures afebrile, vitals stable (2) Gastroenteritis: Imodium as needed for diarrhea Ondansetron as needed for nausea/vomiting still with diarrhea today, can try adding Questran tomorrow if needed (3) COVID-19: Remdesivir, convalescent plasma, dexamethasone held due to lack of hypoxia and high risk of secondary bacterial infection. she continues to do well from respiratory standpoint, no hypoxia Airborne isolation Acetaminophen as needed for fever (4) Fatigue: And generalized weakness. Secondary to COVID-19 diagnosis. PT eval and treat (5) Diabetes: HbA1c 6.9 in January. Repeat with a.m. labs. Home dosing NovoLog 7030 mix 140 units every morning, 60 units every afternoon. Last dose 04/22 qam. Glucose 88 in ER. We will hold off basal dosing until further [id number] glucose measurements throughout the day. NovoLog sliding scale, aim 110-140, correction 6, carb ratio 3. sugars stable (6) Atrial fibrillation: Continue rate control with digoxin 125 mcg p.o. daily, metoprolol tartrate 100 mg p.o. twice daily. Hold diltiazem ER 240 mg p.o. daily pending rate and blood pressure measurements throughout the day. Continue Xarelto 15 mg p.o. daily for anticoagulation. HR in the 50's (7) Hypertension: Metoprolol and diltiazem as above for rate control. bumex today, hold tomorrow due to diarrhea and poor oral intake (8) Elevated troponin I level: Suspected demand ischemia in the setting of COVID-19 diagnosis and dehydration. (9) Rheumatoid arthritis: Unclear diagnosis at the present time. Requested outpatient rheumatology notes. Continue prednisone 5 mg p.o. daily although unclear whether steroids are for this purpose. (10) Chronic steroid use: Unclear reason for chronic steroid use from my discussion with the patient. We will continue her usual prednisone 5 mg p.o. daily on admission. If hypotensive consider stress dose steroids. (11) Myelodysplastic syndrome with 5 q minus: Hold Revlimid in setting of COVID-19 diagnosis (12) Pancytopenia due to chemotherapy: Revlimid versus virally induced. Monitor with CBC in a.m. Consult hematology as above. (13) Lumbar spinal stenosis: Baseline mobility with walker. Continue tramadol 50 mg p.o. every 6 hourly as needed for pain control PT eval and treat (14) DVT prophylaxis: Continue Xarelto as above Admission and Anticipated Discharge Date Admission Date: April 23, 2020 Subjective patient is feeling about the same today, still with diarrhea and weakness she does not have any hypoxia or dyspnea reviewed the chart reviewed labs, K is low still, Cr is stable at 1.3 Review of Systems Review of Systems: All systems reviewed & are unremarkable except as noted in Subjective Constitutional: + fatigue and + weakness; no fever, no chills and no sweats Respiratory: no cough and no dyspnea Cardiovascular: no chest pain and no edema Gastrointestinal: + nausea and + diarrhea/loose stools; no abdominal pain, no vomiting and no constipation Physical Exam Constitutional: WD/WN, vitals as above no acute distress Neck: trachea midline, no thyromegaly Respiratory: normal respiratory effort, lungs clear to auscultation Cardiovascular: RRR, no murmur, no edema Gastrointestinal (Abdomen): normal bowel sounds, soft, nontender, no hepatosplenomegaly Musculoskeletal: no cyanosis or clubbing, extremities motor strength 5/5 Skin: no rashes, warm and dry Neurologic: patellar DTR's 2+ bilat, sensation intact and PERRL, EOMI, accommodation nl, no face palsy, no dysarthria Psychiatric: A+Ox3, euthymic affect Lymphatic: no cervical or axillary lymphadenopathy Results & Data Results & Data ([facility]) Vital Signs (Past 12 Hours) Vital Signs Temp Pulse Resp BP Pulse Ox 04/24/20 15:59 36.8 C 72 18 135/81 95 04/24/20 12:15 36.8 C 61 20 129/72 93 04/24/20 08:29 37.2 C 76 20 132/70 94 Laboratory Results Laboratory Results - last 24 hr 04/23/20 04/23/20 04/23/20 18:35 19:49 22:30 WBC RBC Hgb Hct MCV MCH MCHC RDW Std Deviation RDW Coeff of Griffin Plt Count MPV Immature Gran % (Auto) Neut % (Auto) Lymph % (Auto) [place] % (Auto) Eos % (Auto) Baso % (Auto) Neut # (Auto) Lymph # (Auto) [place] # (Auto) Eos # (Auto) Baso # (Auto) Immature Gran # (Auto) D-Dimer Sodium Potassium Chloride Carbon Dioxide Anion Gap BUN Creatinine Est Cr Clr Drug Dosing Est GFR ( Amer) Est GFR (Non-Af Amer) BUN/Creatinine Ratio Glucose POC Glucose 109 H 125 H Estimat Average Glucose Hemoglobin A1c Calcium Phosphorus Magnesium Ferritin Total Bilirubin AST ALT Alkaline Phosphatase Lactate Dehydrogenase Total Creatine Kinase Troponin I C-Reactive Protein Total Protein Albumin Globulin Albumin/Globulin Ratio Procalcitonin Urine Color Yellow Urine Appearance Clear Urine pH 6.0 Ur Specific [place] 1.011 Urine Protein 1+ H Urine Glucose (UA) Negative Urine Ketones Negative Urine Blood 1+ H Urine Nitrite Negative Urine Bilirubin Negative Urine Urobilinogen Negative Ur Leukocyte Esterase Negative Urine WBC (Auto) Not Reportable Urine RBC (Auto) Not Reportable U Hyaline Cast (Auto) Not Reportable U Epithel Cells (Auto) Not Reportable Urine Bacteria (Auto) Not Reportable Urine RBC 5-10 H Urine WBC 0-5 Ur Epithelial Cells >30 H Urine Bacteria 1+ H 04/24/20 04/24/20 04/24/20 06:35 06:35 06:35 WBC 2.19 L RBC 3.36 L Hgb 10.6 L Hct 33.5 L MCV 99.7 MCH 31.5 MCHC 31.6 L RDW Std Deviation 62.7 H RDW Coeff of Griffin 16.8 H Plt Count 118 L MPV 10.4 Immature Gran % (Auto) 0.5 Neut % (Auto) 70.7 Lymph % (Auto) 13.7 [place] % (Auto) 14.6 Eos % (Auto) 0.0 Baso % (Auto) 0.5 Neut # (Auto) 1.55 Lymph # (Auto) 0.30 L [place] # (Auto) 0.32 Eos # (Auto) 0.00 Baso # (Auto) 0.01 Immature Gran # (Auto) 0.01 D-Dimer 1650 H* Sodium 131 L Potassium 3.0 L Chloride 97 L Carbon Dioxide 27 Anion Gap 7.0 BUN 19 H Creatinine 1.33 H Est Cr Clr Drug Dosing 38.7 Est GFR ( Amer) 44.6 Est GFR (Non-Af Amer) 38.5 BUN/Creatinine Ratio 13.9 Glucose 99 POC Glucose Estimat Average Glucose Hemoglobin A1c Calcium 8.3 L Phosphorus 2.6 Magnesium 2.1 Ferritin 1244.6 H Total Bilirubin 0.7 AST 42 H ALT 37 Alkaline Phosphatase 78 Lactate Dehydrogenase Total Creatine Kinase 70 Troponin I 0.102 H* C-Reactive Protein 8.89 H Total Protein 6.3 L Albumin 2.6 L Globulin 3.7 Albumin/Globulin Ratio 0.7 L Procalcitonin Urine Color Urine Appearance Urine pH Ur Specific [place] Urine Protein Urine Glucose (UA) Urine Ketones Urine Blood Urine Nitrite Urine Bilirubin Urine Urobilinogen Ur Leukocyte Esterase Urine WBC (Auto) Urine RBC (Auto) U Hyaline Cast (Auto) U Epithel Cells (Auto) Urine Bacteria (Auto) Urine RBC Urine WBC Ur Epithelial Cells Urine Bacteria 04/24/20 04/24/20 04/24/20 06:35 06:35 06:35 WBC RBC Hgb Hct MCV MCH MCHC RDW Std Deviation RDW Coeff of Griffin Plt Count MPV Immature Gran % (Auto) Neut % (Auto) Lymph % (Auto) [place] % (Auto) Eos % (Auto) Baso % (Auto) Neut # (Auto) Lymph # (Auto) [place] # (Auto) Eos # (Auto) Baso # (Auto) Immature Gran # (Auto) D-Dimer Sodium Potassium Chloride Carbon Dioxide Anion Gap BUN Creatinine Est Cr Clr Drug Dosing Est GFR ( Amer) Est GFR (Non-Af Amer) BUN/Creatinine Ratio Glucose POC Glucose Estimat Average Glucose 131 Hemoglobin A1c 6.2 H Calcium Phosphorus Magnesium Ferritin Total Bilirubin AST ALT Alkaline Phosphatase Lactate Dehydrogenase 277 H Total Creatine Kinase Troponin I C-Reactive Protein Total Protein Albumin Globulin Albumin/Globulin Ratio Procalcitonin < 0.05 Urine Color Urine Appearance Urine pH Ur Specific [place] Urine Protein Urine Glucose (UA) Urine Ketones Urine Blood Urine Nitrite Urine Bilirubin Urine Urobilinogen Ur Leukocyte Esterase Urine WBC (Auto) Urine RBC (Auto) U Hyaline Cast (Auto) U Epithel Cells (Auto) Urine Bacteria (Auto) Urine RBC Urine WBC Ur Epithelial Cells Urine Bacteria 04/24/20 04/24/20 04/24/20 08:26 12:12 16:01 WBC RBC Hgb Hct MCV MCH MCHC RDW Std Deviation RDW Coeff of Griffin Plt Count MPV Immature Gran % (Auto) Neut % (Auto) Lymph % (Auto) [place] % (Auto) Eos % (Auto) Baso % (Auto) Neut # (Auto) Lymph # (Auto) [place] # (Auto) Eos # (Auto) Baso # (Auto) Immature Gran # (Auto) D-Dimer Sodium Potassium Chloride Carbon Dioxide Anion Gap BUN Creatinine Est Cr Clr Drug Dosing Est GFR ( Amer) Est GFR (Non-Af Amer) BUN/Creatinine Ratio Glucose POC Glucose 110 H 82 188 H Estimat Average Glucose Hemoglobin A1c Calcium Phosphorus Magnesium Ferritin Total Bilirubin AST ALT Alkaline Phosphatase Lactate Dehydrogenase Total Creatine Kinase Troponin I C-Reactive Protein Total Protein Albumin Globulin Albumin/Globulin Ratio Procalcitonin Urine Color Urine Appearance Urine pH Ur Specific [place] Urine Protein Urine Glucose (UA) Urine Ketones Urine Blood Urine Nitrite Urine Bilirubin Urine Urobilinogen Ur Leukocyte Esterase Urine WBC (Auto) Urine RBC (Auto) U Hyaline Cast (Auto) U Epithel Cells (Auto) Urine Bacteria (Auto) Urine RBC Urine WBC Ur Epithelial Cells Urine Bacteria Medications Administered Current Inpatient Medications Acetaminophen (Acetaminophen 325 Mg Tab) 650 mg PO Q4H PRN PRN Reason: Pain or Fever Stop: 05/23/20 18:14 Last Admin: 04/23/20 19:45 Dose: 650 mg Documented by: Al Hydrox/Mg Hydrox/Simethicone (Aluminum/Magnesium Susp 30 Ml Udc) 15 ml PO Q4H PRN PRN Reason: Dyspepsia Stop: 05/23/20 18:14 Allopurinol (Allopurinol 300 Mg Tab) 300 mg PO DAILY [facility] Stop: 05/24/20 08:59 Last Admin: 04/24/20 09:20 Dose: 300 mg Documented by: Atorvastatin Calcium (Atorvastatin 20 Mg Tab) 20 mg PO DAILY [facility] Stop: 05/24/20 08:59 Last Admin: 04/24/20 09:20 Dose: 20 mg Documented by: Dextrose (Dextrose 50% 50 Ml Syringe) 25 - 50 ml IV UD PRN; Protocol PRN Reason: Hypoglycemia Protocol Stop: 05/23/20 18:14 Digoxin (Digoxin 0.125 Mg Tab) 0.125 mg PO DAILY@1600 [facility] Stop: 05/24/20 15:59 Glucagon (Glucagon For Inj 1 Mg Vial) 1 mg SQ UD PRN; Protocol PRN Reason: Hypoglycemia Protocol Stop: 05/23/20 18:14 Glucose (Glucose 10 Tabs/Tube) 4 - 8 tabs PO UD PRN; Protocol PRN Reason: Hypoglycemia Protocol Stop: 05/23/20 18:14 Glucose (Glucose 40% Gel 15 Gm Tube) 15 - 30 gm PO UD PRN; Protocol PRN Reason: Hypoglycemia Protocol Stop: 05/23/20 18:14 Insulin Aspart (Insulin Aspart 100 Units/Ml 3 Ml Pen) 0 units SC ACHS [facility] Stop: 05/23/20 18:14 Last Admin: 04/24/20 12:30 Dose: Not Given Documented by: Loperamide HCl (Loperamide Hcl 2 Mg Cap) 2 mg PO Q2H PRN PRN Reason: Diarrhea Stop: 05/23/20 18:14 Last Admin: 04/24/20 05:57 Dose: 2 mg Documented by: Metoprolol Tartrate (Metoprolol Tartrate 100 Mg Tab) 100 mg PO BID [facility] Stop: 05/23/20 20:59 Last Admin: 04/24/20 09:20 Dose: 100 mg Documented by: Miscellaneous (Carbohydrates For Hypoglycemia ) 15 - 30 gm PO UD PRN PRN Reason: Hypoglycemia Protocol Stop: 05/23/20 18:14 Ondansetron HCl (Ondansetron Inj 2 Mg/Ml 2 Ml Vial) 4 mg IV Q6H PRN PRN Reason: Nausea Stop: 05/23/20 18:14 Pantoprazole Sodium (Pantoprazole 40 Mg Tab) 40 mg PO DAILY [facility] Stop: 05/24/20 08:59 Last Admin: 04/24/20 09:21 Dose: 40 mg Documented by: Potassium Chloride (Potassium Chloride 20 Meq Tabcr) 20 meq PO TID [facility] Stop: 05/24/20 13:59 Prednisone (Prednisone 5 Mg Tab) 5 mg PO DAILY [facility] Stop: 05/24/20 08:59 Last Admin: 04/24/20 09:21 Dose: 5 mg Documented by: Rivaroxaban (Rivaroxaban 15 Mg Tab) 15 mg PO QDD [facility] Stop: 05/24/20 16:29 Tramadol HCl (Tramadol Hcl 50 Mg Tablet) 50 mg PO Q6H PRN PRN Reason: pain Stop: 05/24/20 05:47 PG Care Time/CCT Total # of Minutes Spent Total Time Spent with Patient: Total time spent is greater than 50% in coordination of care (as documented) at patient's floor/unit and/or counseling patient: Coding Level of Care Code 95860 Subseq Hosp Care Lvl 2 Diagnoses Sepsis A41.9 Gastroenteritis K52.9 COVID-19 U07.1 Fatigue R53.83 Fatigue type: unspecified Diabetes E11.9; Z79.4 Diabetes mellitus complication status: without complication 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 Diabetes mellitus type: type 2 Atrial fibrillation I48.91 Atrial fibrillation type: unspecified Hypertension I10 Hypertension type: essential hypertension Elevated troponin I level R77.8 Rheumatoid arthritis M06.9 Chronic steroid use Myelodysplastic syndrome with 5 q minus D46.C Pancytopenia due to chemotherapy D61.810 Lumbar spinal stenosis M48.061 DVT prophylaxis Z29.9 (1) Fatigue Fatigue type: unspecified Qualified Code(s): R53.83 - Other fatigue (2) Diabetes Diabetes mellitus complication status: without complication Diabetes mellitus correction insulin use: with marine engine driver use Diabetes mellitus type: type 2 Qualified Code(s): E11.9 - Type 2 diabetes mellitus without complications; Z79.4 - program host (current) use of insulin (3) Atrial fibrillation Atrial fibrillation type: unspecified Qualified Code(s): I48.91 - Unspecified atrial fibrillation (4) Hypertension Hypertension type: essential hypertension Qualified Code(s): I10 - Essential (primary) hypertension
[2020-04-24] MEDS: DIGOXIN 0.125 MG TAB PO SCH (17:01)
[2020-04-24] MEDS: POTASSIUM CHLORIDE CRTAB 20 MEQ TABCR PO SCH ×2 (17:03→20:37)
[2020-04-24] MEDS: RIVAROXABAN 15 MG TAB PO SCH (17:04)
[2020-04-24] MEDS: ACETAMINOPHEN 325 MG TAB PO PRN (20:36)
[2020-04-25 07:31] LABS: BUN Creatinine Ratio 14.5 (10-20); Calcium 8.5 mg/dl (8.5-10.1); Creatinine Clr Calc Pharmacy 38.9 ml/min; Est GFR (Non-African American) 38.8; Magnesium 2.4 mg/dl (1.8-2.4); Phosphorus 2.8 mg/dl (2.5-4.9)
[2020-04-25] MEDS: INSULIN ASPART 100 UNITS/ML 3 ML PEN SC SCH ×2 (08:05→12:30)
[2020-04-25] MEDS: ATORVASTATIN 20 MG TAB PO SCH (08:05)
[2020-04-25] MEDS: predniSONE 5 MG TAB PO SCH (08:05)
[2020-04-25] MEDS: METOPROLOL TARTRATE 100 MG TAB PO SCH (08:05)
[2020-04-25] MEDS: POTASSIUM CHLORIDE CRTAB 20 MEQ TABCR PO SCH ×2 (08:05→12:27)
[2020-04-25] MEDS: PANTOprazole 40 MG TAB PO SCH (08:06)
[2020-04-25] MEDS: allopurinoL 300 MG TAB PO SCH (08:06)
[2020-04-25] MEDS ORDERED: CHOLESTYRAMINE LIGHT 4 GM PKT PO SCH (10:00)
[2020-04-25 11:53] VITALS: BP 119/68; TEMP 99.7; O2SAT 91
[2020-04-25] MEDS: DIGOXIN 0.125 MG TAB PO SCH (15:53)
[2020-04-25] MEDS: RIVAROXABAN 15 MG TAB PO SCH (15:53)
[2020-04-25 15:55] VITALS: PULSE 63
--- NOTE | 2020-04-25 16:34 | Discharge Summary ---
Date of Service April 25, 2020 Admission HPI Per Admitting Provider Carmen Skaggs is a 79 year old female with Atrial fibrillation, myelodysplastic syndrome, HTN and T2DM who presents to the ER with cough, nausea, vomiting, diarrhea. She has a known diagnosis of COVID-19 with positive nasopharyngeal SARS-CoV-2 PCR on 04/17. She reports symptoms for the last 2 weeks including cough and fevers. She notes she has been getting progressively worse, more fatigued and weaker over the last week. No abdominal pain, melena. Eating and drinking only small amounts. Diarrhea is liquid brown, no recent antibiotics or history of c. diff. She is taking all her medications as prescribed except for insulin due to hypoglycemia last night (last dose Novolog 70/30 yesterday morning 140 units) but she did not take any medications this morning. She takes bumex 2mg PO BID although notes no significant history of heart failure or pulmonary edema outside of atrial fibrillation with RVR episodes. Discussed care with her sister over the phone who reports she is also positive with COVID-19 and notes the patient had significant decline over the last 2 days to the point she felt she was unable to currently cope at home. Of note she had a recent hospitalization in November for symptomatic macrocytic anemia. She required 5 units packed red blood cells during this admission. Suspected myelodysplastic syndrome versus hemolysis with plan for outpatient bone marrow biopsy. I am unclear on the results of this however last hematology note reports diagnosis of myelodysplasia with 5q minus c deletion and she was started on Revlimid for approximately the last 4-6 weeks with good response. In the ER small bowel enteritis/diarrheal state noted on CT abdomen/pelvis without IV contrast. Chest x-ray consistent with multifocal pneumonia. Anemia at baseline. Leukopenia and thrombocytopenia consistent with COVID-19 diagnosis. Creatinine at baseline. Glucose 88. Lactate 1.1. Multiple electrolyte abnormalities including hyponatremia, hypokalemia, hypomagnesemia. Procalcitonin negative. Troponin I mildly elevated at 0.064. EKG -atrial fibrillation with rates 67. No acute ischemic changes. In the ER she was given Mg sulphate 2g IV, KCl 20meq IV, 1L NSS bolus, Famotidine 20mg IV, Acetaminophen 1g IV, Compazine 5mg IV. She was referred to medicine for COVID-19, hypokalemia, hypomagnesemia, gastroenteritis for admission. Principal Diagnosis COVID 19 infection Discharge Exam Constitutional WD/WN, vitals as above no acute distress Neck trachea midline, no thyromegaly Respiratory normal respiratory effort, lungs clear to auscultation Cardiovascular RRR, no murmur, no edema Gastrointestinal (Abdomen) normal bowel sounds, soft, nontender, no hepatosplenomegaly Musculoskeletal no cyanosis or clubbing, extremities motor strength 5/5 Skin no rashes, warm and dry Neurologic patellar DTR's 2+ bilat, sensation intact and PERRL, EOMI, accommodation nl, no face palsy, no dysarthria Psychiatric A+Ox3, euthymic affect Lymphatic no cervical or axillary lymphadenopathy Discharge Data Allergies Allergy/AdvReac Type Severity Reaction Status Date / Time hydrocodone Allergy Mild UNKNOWN Verified 04/23/20 08:51 "HAPPENED LONG TIME AGO" phenol Allergy Unknown LOCALIZED Verified 04/23/20 08:51 RASH AT INJECTION SITE protamine Allergy Unknown LOCALIZED Verified 04/23/20 08:51 RASH AT INJECTION SITE sodium phosphate Allergy Unknown LOCALIZED Verified 04/23/20 08:51 RASH AT INJECTION SITE zinc Allergy Unknown LOCALIZED Verified 04/23/20 08:51 RASH AT INJECTION SITE hydroxychloroquine AdvReac Unknown "BURPED Verified 04/23/20 08:51 FOR DAYS AND TORE MY STOMACH UP" Consultations 04/23/20 09:45 ED Decision to Admit Stat 04/23/20 18:15 Consult Health Information Management Routine Ordered Studies 04/23/20 07:32 CT abd pelvis wo con Stat Hospital Course (1) Sepsis: SIRS criteria with fever and leukopenia. Suspected source enteritis versus COVID-19 pneumonia -no antibiotics required. Lactate 1.1. no growth on cultures afebrile, vitals stable sepsis resolved quickly, BP stable, drinking well (2) Gastroenteritis: Imodium as needed for diarrhea Ondansetron as needed for nausea/vomiting still with diarrhea improved after adding Questran stools are more formed, no abdominal pain, no vomiting she feels like she can manage at home (3) COVID-19: Remdesivir, convalescent plasma, dexamethasone held due to lack of hypoxia and high risk of secondary bacterial infection. she continues to do well from respiratory standpoint, no hypoxia Airborne isolation Acetaminophen as needed for fever discharge to home to recover further, remain in quarantine for 7 days family can bring her food but she also says she bough $600 worth of food recently so she will be okay (4) Fatigue: And generalized weakness. Secondary to COVID-19 diagnosis. PT eval and treat she is safe to go home alone, ambulating in the room independently (5) Diabetes: HbA1c 6.9 in January. Repeat with a.m. labs. Home dosing NovoLog 7030 mix 140 units every morning, 60 units every afternoon. Last dose 04/22 qam. Glucose 88 in ER. We will hold off basal dosing until further [id number] glucose measurements throughout the day. NovoLog sliding scale, aim 110-140, correction 6, carb ratio 3. sugars stable continue home regimen on discharge (6) Atrial fibrillation: Continue rate control with digoxin 125 mcg p.o. daily, metoprolol tartrate 100 mg p.o. twice daily. continue Diltiazem Continue Xarelto 15 mg p.o. daily for anticoagulation. HR in the 50's (7) Hypertension: Metoprolol and diltiazem as above for rate control. hold Bumex until 04/26 (8) Elevated troponin I level: Suspected demand ischemia in the setting of COVID-19 diagnosis and dehydration. (9) Rheumatoid arthritis: Unclear diagnosis at the present time. Requested outpatient rheumatology notes. Continue prednisone 5 mg p.o. daily although unclear whether steroids are for this purpose. (10) Chronic steroid use: Unclear reason for chronic steroid use from my discussion with the patient. We will continue her usual prednisone 5 mg p.o. daily on admission. If hypotensive consider stress dose steroids. (11) Myelodysplastic syndrome with 5 q minus: Hold Revlimid in setting of COVID-19 diagnosis (12) Pancytopenia due to chemotherapy: Revlimid versus virally induced. Monitor with CBC in a.m. Consult hematology as above. (13) Lumbar spinal stenosis: Baseline mobility with walker. Continue tramadol 50 mg p.o. every 6 hourly as needed for pain control PT eval and treat Total Time Total Time Spent Total Time Spent (In Minutes): 33 minutes Total Time Includes: Examination of the Patient, Discharge Planning and Medication Reconciliation Discharge Plan Discharge Items Patient Disposition: Home - Self-Care Reason For Visit: COVID-19, HYPONATREMIA, HYPOKALEMIA Discharge Diagnosis: COVID 19 with diarrhea Dehydration, hyponatremia, hypokalemia Condition on Discharge: Good Goals: stay well nourished and well hydrated stay in quarantine for 3 more days Activity: Resume your previous activity Non-emergency contact: Primary Care Provider Call non-emergency contact if: you have any medication questions, your symptoms worsen and you have a fever Follow-up/Referrals: Marito Somers MD [Primary Care Provider] - 05/04/20 11:30 am (Please follow up with Dr. Somers on Thursday05/04/2020 at 11:30 am. Please arrive to the office 15 minutes early for your appointment. If you are unable to keep this appointment, please call the office to reschedule at [phone].) Diet: Carb Consistent or DM2 Addtl Attending Provider Instructions: Medications: - IMODIUM: take as needed for loose stools, take every 6 hours, obtain over the counter - QUESTRAN: take twice a day as long as you are having loose stools, you can stop when stools are solid BUMEX and POTASSIUM I want you to hold these medications 04/26 but you can resume them on Thursday and continue taking them as you normally do COVID 19 causing diarrhea you never had hypoxia and there is no evidence of pneumonia on chest x-ray your diarrhea is improving, continue to use Imodium and Questran to control symptoms focus on staying well hydrated and well nourished this next week, try to eat three times a day if your stomach is upset then try eating smaller meals more frequently Pending Studies at Discharge: No Stand-Alone Forms: My [facility] [employer] Smoking Cessation Medications and DC Order Prescriptions: New loperamide 2 mg Capsule 2 mg PO Q6H PRN (Reason: loose stool) Qty: 0 RF: 0 Cholestyramine Light 4 gram Powder In Packet 4 g PO BID@1000,2200 5 Days Qty: 10 RF: 0 Continued rabeprazole [AcipHex] 20 mg tablet,delayed release (DR/EC) 20 mg PO DAILY RF: 0 atorvastatin [Lipitor] 20 mg tablet 20 mg PO DAILY RF: 0 metoprolol tartrate [Lopressor] 100 mg tablet 100 mg PO BID RF: 0 prednisone 5 mg tablet 5 mg PO DAILY RF: 0 bumetanide 1 mg tablet 2 mg PO BID RF: 0 digoxin [Digox] 125 mcg (0.125 mg) tablet 125 mcg PO DAILY RF: 0 insulin asp prt-insulin aspart [Novolog Mix 70-30FlexPen U-100] 100 unit/mL (70-30) insulin pen 100 unit SUBCUT QAM RF: 0 insulin asp prt-insulin aspart [Novolog Mix 70-30FlexPen U-100] 100 unit/mL (70-30) insulin pen 60 unit SUBCUT QPM RF: 0 allopurinol 300 mg tablet 300 mg PO DAILY RF: 0 tramadol 50 mg tablet 50 mg PO Q6H PRN (Reason: pain) Qty: 10 RF: 0 Xarelto 15 mg tablet 15 mg PO DAILY RF: 0 Revlimid 2.5 mg capsule 2.5 mg PO DAILY RF: 0 diltiazem HCl [Cartia XT] 240 mg Capsule,Extended Release 24hr 240 mg PO DAILY RF: 0 potassium citrate 10 mEq (1,080 mg) Tablet Extended Release 20 meq PO TID RF: 0 Discharge Orders: Discharge Order (Routine); Ordered 04/25/20 Ordered By: Bjorn Baker/Other Patient Handouts: Managing Type 2 Diabetes Admission Data Admit Date/Time: 04/23/20 11:30 Attending Provider: Bjorn Soto Admit Provider: Jv Love Primary Care Provider: Marito Somers Other Providers: Bjorn Soto Other Interventions: Discharge Summary Assessment (RN) Last Done: 04/25/20 15:53 Coding Level of Care Code D/C Day Management >30 mins Diagnoses Sepsis A41.9 Gastroenteritis K52.9 COVID-19 U07.1 Fatigue R53.83 Fatigue type: unspecified Diabetes E11.9; Z79.4 Diabetes mellitus complication status: without complication 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
== END 2020-04-25 16:30 | disposition home or self-care (01) | DRG 871 ==
LOC: ED 07:12 → SUATTDRO 11:30 → 2S 11:30
DX: D61.810 Antineoplastic chemotherapy induced pancytopenia; K52.9 Noninfective gastroenteritis and colitis, unspecified; E87.1 Hypo-osmolality and hyponatremia; E87.6 Hypokalemia; D46.C Myelodysplastic syndrome with isolated del(5q) chromosomal abnormality; Z88.8 Allergy status to other drugs, medicaments and biological substances; I48.91 Unspecified atrial fibrillation; M48.061 Spinal stenosis, lumbar region without neurogenic claudication; Z79.4 Long term (current) use of insulin; A41.9 Sepsis, unspecified organism; M06.9 Rheumatoid arthritis, unspecified; Z88.5 Allergy status to narcotic agent; Z79.899 Other long term (current) drug therapy; E11.9 Type 2 diabetes mellitus without complications; I10 Essential (primary) hypertension; J12.89 Other viral pneumonia; E83.42 Hypomagnesemia; U07.1 COVID-19; I24.8 Other forms of acute ischemic heart disease; Z79.52 Long term (current) use of systemic steroids; T45.1X5A Adverse effect of antineoplastic and immunosuppressive drugs, initial encounter; E86.0 Dehydration; Z79.01 Long term (current) use of anticoagulants

== ENCOUNTER 2021-08-02 10:13 | Inpatient (IN) ==
[2021-08-02 11:44] LABS: INR 1.4 (0.9-1.1); Partial Thromboplastin Ratio 1.3; Prothrombin Time 13.5 Seconds (9.0-12.0)
[2021-08-02 11:55] LABS: Alanine Aminotransferase 11 U/L (7-52); Albumin Globulin Ratio 1.3 (0.9-2); Albumin Level 3.4 gm/dl (3.4-5.0); Alkaline Phosphatase 77 U/L (34-104); Anion Gap 9 (3-11); Aspartate Aminotransferase 13 U/L (13-39); BUN Creatinine Ratio 21.1 (10-20); Bilirubin,Total 2.6 mg/dl (0.2-1.0); Blood Urea Nitrogen 34 mg/dl (6-23); Calcium 8.3 mg/dl (8.5-10.1); Carbon Dioxide 26 mmol/L (21-32); Chloride 98 mmol/L (98-107); Est GFR (African American) 35.1 ml/min; Est GFR (Non-African American) 30.3 ml/min; Globulin 2.6 gm/dl (2.5-4.0); Glucose 181 mg/dl (70-99(Fasting)); Magnesium 1.5 mg/dl (1.7-2.4); Potassium 3.1 mmol/L (3.5-5.1); Sodium 133 mmol/L (136-145)
[2021-08-02 12:00] LABS: Anisocytosis Present; Basophils # (auto) 0.03 K/uL (0-0.2); Basophils % (auto) 0.9 %; Giant Platelets 3+; Hematocrit (blood only) 24.5 % (37-47); Hemoglobin 8.3 g/dL (12.0-16.0); Hypogranular Neutrophils 1+; Immature Granulocytes # (auto) 0.03 K/uL (0.00-0.02); Immature Granulocytes % (auto) 0.9 %; Lymphocytes # (auto) 0.84 K/uL (1.2-3.4); Lymphocytes % (auto) 24.9 %; Mean Corpuscular Hemoglobin 32.8 pg (25-34); Mean Corpuscular Hgb Conc 33.9 g/dL (32-36); Mean Corpuscular Volume 96.8 fL (80-100); Monocytes # (auto) 0.25 K/uL (0.11-0.59); Monocytes % (auto) 7.4 %; Neutrophils # (auto) 2.12 K/uL (1.4-6.5); Neutrophils % (auto) 62.9 %; Ovalocytes 1+; Platelet Count 40 K/uL (130-400); Platelet Estimate Decreased (Normal); RDW Coefficient of Variation 24.3 % (11.5-14.5); RDW Standard Deviation 77.7 fL (36.4-46.3); Red Blood Count 2.53 M/uL (4.2-5.4); Troponin I 0.15 ng/ml (0-0.04); White Blood Count 3.37 K/uL (4.8-10.8)
--- NOTE | 2021-08-02 12:03 | Emergency Department Note ---
Impression & Plan Pancytopenia, Fatigue, Weakness, Anemia, Atrial fibrillation, Elevated troponin I level, MDS (myelodysplastic syndrome) ED Provider Note NAME: ANA MOBLEY AGE: 80 SEX: F : 1940 ARRIVES VIA: Walk-In INFORMANT: Patient, ED PROVIDER(S): Jeremy Lane MD Chief Complaint: Chest pain, cough HPI: Patient does present with concern for chest pain and cough. Patient states that she has had a chronic cough ever since she developed Covid in 2019. The patient is not vaccinated. The patient does state that her pain is left-sided and only associated with her cough. The patient has had some shortness of breath and chronic lower extremity edema primarily in the feet which is unchanged. The patient is on Xarelto for history of A. fib and does follow with [facility] cardiology. Patient denies any fevers chills. The patient denies any nausea vomiting. The patient does follow with Dr. Meek does receive by mouth chemotherapy for history of MDS. Patient states that she received 2 units of PRBCs yesterday due to lower blood counts. Patient denies any dark stools or bright red blood per rectum. Patient does live at home by herself but does have family that lives very close by. ROS: See HPI for pertinent positives and negatives. A total of 10 systems were reviewed and otherwise negative. Past medical history: See below Surgical history: See below Social history: See below Physical Exam: GENERAL: NAD, wearing a mask, non-toxic. EYE EXAM: Normal conjunctiva. PERRL, no anisocoria and EOM's grossly intact w/o pain. NECK: Supple, no nuchal rigidity, no adenopathy, non-tender. No signs of meningismus. LUNGS: Clear to auscultation. Normal chest wall mechanics. HEART: Irregularly irregular, no MRG. ABDOMEN: Abdomen soft, non-tender, normo-active bowel sounds, no masses, no rebound or guarding. BACK: No CVA TTP. SKIN: Slight scratch injury with scant bleeding to the left posterior shoulder. No surrounding erythema or crepitus. UPPER EXTREMITIES: Upper extremities are grossly normal. LOWER EXTREMITIES: Grossly normal, no edema. NEURO EXAM: A&O x3, cranial nerves II-XII grossly intact, normal speech, moves all 4 extremities on command w/o issue. Differential diagnoses: Cardiac ischemia, aortic dissection, pulmonary embolism, pneumothorax, pneumonia, pericarditis, myocarditis, esophageal rupture, GERD, cholecystitis, pancreatitis, musculoskeletal, as well as other pathologies. Course: Patient was seen and evaluated the bedside. Full history physical exam was per formed. EKG interpreted by me Ivory renner, rate of 83, normal QRS, normal axis, downsloping inferiorly as well as in the lateral leads. No significant change from comparison EKG completed April 23, 2020. Imaging Studies: See Below Cardiac monitoring: An order was placed for continuous cardiac monitoring. The monitor shows a rate of 82 with irregularly irregular rhythm. MDM: Patient was seen due to concern chest pain and cough. Blood work was obtained and the patient was treated symptomatically. Patient does have a white count of 3.3 with a hemoglobin of 8.3. The patient did receive transfusion yesterday. Platelet count 40,000. The patient's kidney function with a creatinine 1.6. Patient does have hypomagnesemia and hypocalcemia with elevated bilirubin. Troponin is 0.15. While the patient's chest pain is most likely related to the patient's cough patient's troponin is likely demand ischemia in nature given the patient's significant anemia requiring transfusion but do believe the patient would benefit from admission at this time. I did speak with the on-call hospitalist Dr. Gomez patient was admitted to the medicine service. The patient was ordered calcium and magnesium for replacement. Patient was ordered 324 of aspirin as a precaution. Past Med/Surg History Medical History Jarvis Acute hypokalemia Diabetes Elevated troponin I level GI bleed Hypertension Hypomagnesemia Malignant neoplasm of central portion of female breast (10/01/11) "Left breast pain Finding of a left breast mass Status post biopsy revealing infiltrating ductal carcinoma Status post partial mastectomy and sentinel lymph node biopsy Pathologic stage [id number] Estrogen receptor positive, progesterone receptor positive, HER-2/abelardo negative Status post completion of radiation therapy 04/08/2012 received 6120 cGy" Surgical History History of hysterectomy History of lumpectomy Hx of cholecystectomy Family History Other Cancer Diabetes Social History Smoking Status: Former smoker Hx Alcohol Use: No Hx Substance Use: No Preferred Language: French Communication Ability: Effective 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 Taper 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 Required: No Beliefs That Will Affect Care: None Current Living Situation: Alone Feels Safe at Home: Yes Safety Concerns: Feels Safe At This Time Assistive Devices: None Allergies Allergies Allergy/AdvReac Type Severity Reaction Status Date / Time hydrocodone Allergy Mild UNKNOWN Verified 08/02/21 13:25 "HAPPENED LONG TIME AGO" phenol Allergy Unknown LOCALIZED Verified 08/02/21 13:25 RASH AT INJECTION SITE protamine Allergy Unknown LOCALIZED Verified 08/02/21 13:25 RASH AT INJECTION SITE sodium phosphate Allergy Unknown LOCALIZED Verified 08/02/21 13:25 RASH AT INJECTION SITE zinc Allergy Unknown LOCALIZED Verified 08/02/21 13:25 RASH AT INJECTION SITE hydroxychloroquine AdvReac Unknown "BURPED Verified 08/02/21 13:25 FOR DAYS AND TORE MY STOMACH UP" Home Meds Home Medications Medication Instructions Recorded Confirmed allopurinol 300 mg tablet 300 mg PO QAM 11/15/19 08/02/21 atorvastatin 20 mg tablet (Lipitor) 20 mg PO HS 11/15/19 08/02/21 bumetanide 1 mg tablet 2 mg PO BID 11/15/19 08/02/21 digoxin 125 mcg (0.125 mg) tablet 125 mcg PO QAM 11/15/19 08/02/21 (Digox) insulin aspar prot-insulin aspart 45 unit SUBCUT QPM 11/15/19 08/02/21 100 unit/mL (70-30) subcutaneous pen (Novolog Mix 70-30FlexPen U-100) insulin aspar prot-insulin aspart 85 unit SUBCUT QAM 11/15/19 08/02/21 100 unit/mL (70-30) subcutaneous pen (Novolog Mix 70-30FlexPen U-100) prednisone 5 mg tablet 5 mg PO QAM 11/15/19 08/02/21 rabeprazole 20 mg tablet,delayed 20 mg PO QAM 11/15/19 08/02/21 release (AcipHex) lenalidomide 2.5 mg capsule 2.5 mg PO QAM 03/11/20 08/02/21 (Revlimid) rivaroxaban 15 mg tablet (Xarelto) 15 mg PO QAM 03/11/20 08/02/21 diltiazem HCl 240 mg 240 mg PO QAM 04/23/20 08/02/21 capsule,extended release 24 hr (Cartia XT) potassium citrate 10 mEq (1,080 30 meq PO BID 04/23/20 08/02/21 mg) tablet,extended release escitalopram oxalate 10 mg tablet 10 mg PO QAM 08/02/21 08/02/21 loratadine 10 mg tablet (Claritin) 10 mg PO QAM 08/02/21 08/02/21 metoprolol tartrate 50 mg tablet 50 mg PO QAM 08/02/21 08/02/21 potassium chloride 10 mEq 30 meq PO TID 08/02/21 08/02/21 tablet,extended release Results & Data (ED) Vital Signs Vital Signs - 24 hr 08/02/21 10:29 08/02/21 12:04 08/02/21 12:07 Temperature 36.6 C Temperature Source Temporal Artery Scan Pulse Rate 82 81 Pulse Rate [Apical] 84 Respiratory Rate 18 22 Respiratory Effort / Characteristics Non-Labored Respiratory Depth Normal Blood Pressure 161/69 H Blood Pressure [Right Arm] 163/67 H Blood Pressure Mean 99 Blood Pressure Mean [Right Arm] 99 Pulse Oximetry 97 92 91 Oxygen Delivery Method Room Air Room Air Room Air Sepsis Recent Fever Within 48 Hours No Sepsis New/Unexplained Change in Mental Status No Sepsis Action Taken by Nursing No Action Required Home Medications Current Medication List: was personally reviewed by me Laboratory Data Attestation: I reviewed the patient's lab results. Result diagrams: 08/02/21 10:52 08/02/21 10:52 Lab Results 08/02/21 08/02/21 08/02/21 Range/Units 10:52 10:52 10:52 WBC 3.37 L (4.8-10.8) K/uL RBC 2.53 L (4.2-5.4) M/uL Hgb 8.3 L (12.0-16.0) g/dL Hct 24.5 L (37-47) % MCV 96.8 D (80-100) fL MCH 32.8 (25-34) pg MCHC 33.9 (32-36) g/dL RDW Std Deviation 77.7 H (36.4-46.3) fL RDW Coeff of Griffin 24.3 H (11.5-14.5) % Plt Count 40 L (130-400) K/uL Immature Gran % (Auto) 0.9 % Neut % (Auto) 62.9 % Lymph % (Auto) 24.9 % Isabella % (Auto) 7.4 % Eos % (Auto) 3.0 % Baso % (Auto) 0.9 % Neut # (Auto) 2.12 (1.4-6.5) K/uL Lymph # (Auto) 0.84 L (1.2-3.4) K/uL Isabella # (Auto) 0.25 (0.11-0.59) K/uL Eos # (Auto) 0.10 (0-0.5) K/uL Baso # (Auto) 0.03 (0-0.2) K/uL Immature Gran # (Auto) 0.03 H (0.00-0.02) K/uL Hypogranular Neuts 1+ Platelet Estimate Decreased L (Normal) Giant Platelets 3+ Anisocytosis Present Ovalocytes 1+ PT 13.5 H (9.0-12.0) Seconds INR 1.4 H (0.9-1.1) APTT 35.0 H (21.0-31.0) Seconds PTT Ratio 1.3 Sodium 133 L (136-145) mmol/L Potassium 3.1 L (3.5-5.1) mmol/L Chloride 98 (98-107) mmol/L Carbon Dioxide 26 (21-32) mmol/L Anion Gap 9 (3-11) BUN 34 H (6-23) mg/dl Creatinine 1.61 H (0.6-1.2) mg/dl Est Cr Clr Drug Dosing Not Reportable Est GFR ( Amer) 35.1 ml/min Est GFR (Non-Af Amer) 30.3 ml/min BUN/Creatinine Ratio 21.1 H (10-20) Glucose 181 H (70-99(Fasting)) mg/dl Calcium 8.3 L (8.5-10.1) mg/dl Magnesium 1.5 L (1.7-2.4) mg/dl Total Bilirubin 2.6 H (0.2-1.0) mg/dl AST 13 (13-39) U/L ALT 11 (7-52) U/L Alkaline Phosphatase 77 (34-104) U/L Troponin I 0.15 H* (0-0.04) ng/ml Total Protein 6.0 (6.0-8.3) gm/dl Albumin 3.4 (3.4-5.0) gm/dl Globulin 2.6 (2.5-4.0) gm/dl Albumin/Globulin Ratio 1.3 (0.9-2) Procalcitonin (0-0.5) ng/ml SARS-CoV-2, RNA, NAAT (NEGATIVE) Blood Type Antibody Screen 08/02/21 08/02/21 08/02/21 Range/Units 12:11 12:26 12:31 WBC (4.8-10.8) K/uL RBC (4.2-5.4) M/uL Hgb (12.0-16.0) g/dL Hct (37-47) % MCV (80-100) fL MCH (25-34) pg MCHC (32-36) g/dL RDW Std Deviation (36.4-46.3) fL RDW Coeff of Griffin (11.5-14.5) % Plt Count (130-400) K/uL Immature Gran % (Auto) % Neut % (Auto) % Lymph % (Auto) % Isabella % (Auto) % Eos % (Auto) % Baso % (Auto) % Neut # (Auto) (1.4-6.5) K/uL Lymph # (Auto) (1.2-3.4) K/uL Isabella # (Auto) (0.11-0.59) K/uL Eos # (Auto) (0-0.5) K/uL Baso # (Auto) (0-0.2) K/uL Immature Gran # (Auto) (0.00-0.02) K/uL Hypogranular Neuts Platelet Estimate (Normal) Giant Platelets Anisocytosis Ovalocytes PT (9.0-12.0) Seconds INR (0.9-1.1) APTT (21.0-31.0) Seconds PTT Ratio Sodium (136-145) mmol/L Potassium (3.5-5.1) mmol/L Chloride (98-107) mmol/L Carbon Dioxide (21-32) mmol/L Anion Gap (3-11) BUN (6-23) mg/dl Creatinine (0.6-1.2) mg/dl Est Cr Clr Drug Dosing Est GFR ( Amer) ml/min Est GFR (Non-Af Amer) ml/min BUN/Creatinine Ratio (10-20) Glucose (70-99(Fasting)) mg/dl Calcium (8.5-10.1) mg/dl Magnesium (1.7-2.4) mg/dl Total Bilirubin (0.2-1.0) mg/dl AST (13-39) U/L ALT (7-52) U/L Alkaline Phosphatase (34-104) U/L Troponin I (0-0.04) ng/ml Total Protein (6.0-8.3) gm/dl Albumin (3.4-5.0) gm/dl Globulin (2.5-4.0) gm/dl Albumin/Globulin Ratio (0.9-2) Procalcitonin 0.13 (0-0.5) ng/ml SARS-CoV-2, RNA, NAAT NEGATIVE (NEGATIVE) Blood Type O Positive Antibody Screen NEGATIVE Administered Medications Discontinued Medications Aspirin (Aspirin Chew 324 Mg) 324 mg PO NOW STA Stop: 08/02/21 13:40 Last Admin: 08/02/21 13:43 Dose: 324 mg Documented by: [id number] Benzonatate (Benzonatate 100 Mg Capsule) 100 mg PO NOW ONE Stop: 08/02/21 12:28 Last Admin: 08/02/21 12:43 Dose: 100 mg Documented by: [id number] Diltiazem HCl (Diltiazem Hcl 240 Mg Capcr) 240 mg PO NOW ONE Stop: 08/02/21 15:01 Last Admin: 08/02/21 15:38 Dose: 240 mg Documented by: [id number] Magnesium Sulfate/Dextrose (Magnesium Sulfate / D5w) 1 gm in 100 mls @ 50 mls/hr IV Q2H STA Stop: 08/02/21 15:49 Last Admin: 08/02/21 14:15 Dose: 50 mls/hr Documented by: [id number] Metoprolol Tartrate (Metoprolol Tartrate 50 Mg Tab) 50 mg PO NOW ONE Stop: 08/02/21 14:48 Last Admin: 08/02/21 15:38 Dose: 50 mg Documented by: [id number] Potassium Chloride (Potassium Chloride Crtab 20 Meq Tabcr) 20 meq PO NOW STA Stop: 08/02/21 13:40 Last Admin: 08/02/21 13:43 Dose: 20 meq Documented by: [id number] Imaging Data Radiologist's Impression: Chest X-Ray 08/02/21 10:37 XR chest 1V portable HISTORY: 80 years-old Female SOB acute shortness of breath COMPARISON: Chest radiograph 04/23/2020 TECHNIQUE: Portable AP view of the chest FINDINGS: Cardiac silhouette is enlarged. Trace left and small to moderate right pleural effusions with right greater left bibasilar consolidation. Pulmonary vascular congestion with interstitial coarsening. Degenerative changes of the shoulders and spine. IMPRESSION: 1. Cardiomegaly with pulmonary edema. 2. Right greater than left basilar consolidation suggestive of atelectasis versus pneumonia. 3. Small to moderate right and trace left pleural effusions. ACT 112: Negative or not required by law. The above report was generated using voice recognition software. It may contain grammatical, syntax or spelling errors. Electronically signed by: Trav Marcelo M.D. 08/02/2021 12:58 PM Discharge Plan Visit Data Chief Complaint: Chest Pain Stated Complaint: CHEST PAIN, SHORTNESS OF BREATH ED Provider: Jeremy Lane Discharge Problem: Pancytopenia, Fatigue, Weakness, Anemia, Atrial fibrillation, Elevated troponin I level, MDS (myelodysplastic syndrome)
[2021-08-02] MEDS ORDERED: BENZONATATE 100 MG CAPSULE PO ONE (12:27)
--- NOTE | 2021-08-02 12:59 | XRay Report ---
XR chest 1V portable HISTORY: 80 years-old Female SOB acute shortness of breath COMPARISON: Chest radiograph 04/23/2020 TECHNIQUE: Portable AP view of the chest FINDINGS: Cardiac silhouette is enlarged. Trace left and small to moderate right pleural effusions with right g reater left bibasilar consolidation. Pulmonary vascular congestion with interstitial coarsening. Dege nerative changes of the shoulders and spine. IMPRESSION: 1. Cardiomegaly with pulmonary edema. 2. Right greater than left basilar consolidation suggestive of atelectasis versus pneumonia. 3. Small to moderate right and trace left pleural effusions. ACT 112: Negative or not required by law. The above report was generated using voice recognition software. It may contain grammatical, syntax o r spelling errors. Electronically signed by: Trav Marcelo M.D. 08/02/2021 12:58 PM
--- NOTE | 2021-08-02 13:11 | History & Physical Report ---
Date of Service August 02, 2021 Assessment & Plan (1) Chest pain: Plan: -Patient states he experiences it with her cough which is newly worsened, however she does have an elevated troponin with EKG changes (no ST elevation). -Initial 0.15, EKG changes show ST and T wave abnormalities, consider inferior lateral ischemia. -Has had elevated troponin in the past, during her April 2020 admission for COVID-19 infection. At that time it was thought that elevated troponins were due to demand ischemia as well as dehydration. She has not previously been seen by cardiology. -Elevated troponin today may be due to demand ischemia, as patient did have a hemoglobin of 6.9 on 07/31, requiring 2 units packed red blood cells. Hemoglobin today 8.3. However, given EKG changes cardiology has been consulted, appreciate their recommendations. -Aspirin 324 mg given. -Will trend troponin every 6x2 with EKGs for correlation. -Patient placed on telemetry. (2) Elevated troponin I level: Plan: -See above. (3) SOB (shortness of breath): Plan: -Patient has chronic cough at baseline since COVID-19 infection in April 2020 but states she has developed sinus congestion over the past few days, as well as increased shortness of breath and worsening nonproductive cough. 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 -CXR showed right greater than sign left basilar consolidation suggestive of atelectasis VS pneumonia. Cardiomegaly with pulmonary edema also noted as well as small to moderate right and trace left pleural effusions. -Pro-Dawson ordered, pending. -Differential includes pneumonia versus PE. In the absence of tachycardia, O2 requirement, as well as patient already being anticoagulated with Xarelto, as well as consolidation seen on CXR, is most likely a pneumonia. -Will start empiric abx treatment with ceftriaxone and azithromycin. -Sputum culture ordered. -MRSA nasal swab pending. (4) Atrial fibrillation: Plan: -Currently in A. fib, rate controlled. Heart rate in 70s. BP currently 163/67. -Continue home meds for rate control, which includes digoxin 1.25 mcg daily, diltiazem 240 mg daily, and metoprolol 50 mg daily. -Continue Xarelto. -Patient on telemetry. (5) Hypokalemia: Plan: -K+ 3.1 in ED, patient does take potassium supplement daily. -Mg++ also low, repleting this. -KCl 20 M EQ p.o. now, recheck BMP this evening and in AM. (6) Hypomagnesemia: Plan: -Mg++ 1.5 in ED, will replete 3 g. -Recheck in AM. (7) Diabetes: Plan: -Glucose in ED 181. -Home dosing NovoLog 7030 mix 85 units every morning, 45 units every afternoon. -Pharmacy consulted for glycemic management. (8) Hyponatremia: Plan: -Na+ 133 in ED. Seem to be chronic, patient is without nausea, vomiting, weakness, confusion/coma. -Continue to monitor. (9) Myelodysplastic syndrome with 5 q minus: Plan: -Continue Revlimid. (10) Pancytopenia: Plan: -Suspect due to chemotherapy (Revlimid). -Received 2 u pRBCs on 07/31 for Hgb 6.9. Hgb today 8.3. -Continue to monitor. (11) Hypertension: Plan: -BP elevated in ED, 163/67. -Continue home meds. (12) Elevated bilirubin: Plan: -Total bili 2.6 today in ED. -LFTs otherwise normal, no jaundice, no abdominal complaints. -Continue to monitor. (13) Lumbar spinal stenosis: Plan: -Baseline mobility with walker. -Continue tramadol 50 mg every 6 as needed. (14) Rheumatoid arthritis: Plan: -Patient on prednisone 5 mg daily, will continue this. Plan: -Full code. -Admit inpatient with telemetry. -SCDs ordered, continue Xarelto. History of Present Illness Chief Complaint: Shortness of breath, chest pain Primary Care Provider: Marito Somers MD Patient is a 80-year-old female with a past medical history of A. fib with rate control, diabetes, hypertension, myelodysplastic syndrome with chronic pancytopenia who presents today with worsening cough and chest pain. Patient was hospitalized in April 2020 with COVID-19 infection, reports since then she has had a chronic dry cough. Over the past several days, it has become worse, more frequent and causing her shortness of breath both at rest and with activity. Has felt more congested, has chronic b/l LE edema which she states is currently at her baseline, otherwise without fever/chills, sputum production, dizziness, weakness, PND, unilateral extremity swelling, calf pain, hemoptysis, or O2 requirement at home. has been taking Robutsissin and cugh drops at home with minimal relief. Of note, patient received 2 units as needed BCs on 07/31 due to an hemoglobin of 6.9. Hemoglobin this morning is 8.3. Additionally, patient reports chest pain that is left-sided and only aggravated when she coughs, does not experience it with rest or activity. No radiation of chest pain to either extremity, or neck, however states she has experienced some jaw pain in the setting of this chest pain. Also reports she is noted her heart beating harder over the past several days. Denies neck/arm pain/numbness or tingling, palpitations, nausea, vomiting, syncopal episodes, weakness, dizziness. Does not have a history of chest pain or coronary artery disease, however does have A. fib that is rate controlled with digoxin, metoprolol, diltiazem. In Ed today, her initial troponin in ED was 0.15, EKG showed atrial fibrillation, possible anterior infarct, age undetermined, ST and T wave abnormality, consider inferior lateral ischemia. Patient had elevated troponin in April 2020 when she was hospitalized for Covid, however suspect at the time to be demand ischemia in the setting of COVID-19 and dehydration. Allergies Allergy/AdvReac Type Severity Reaction Status Date / Time hydrocodone Allergy Mild UNKNOWN Verified 08/02/21 13:25 "HAPPENED LONG TIME AGO" phenol Allergy Unknown LOCALIZED Verified 08/02/21 13:25 RASH AT INJECTION SITE protamine Allergy Unknown LOCALIZED Verified 08/02/21 13:25 RASH AT INJECTION SITE sodium phosphate Allergy Unknown LOCALIZED Verified 08/02/21 13:25 RASH AT INJECTION SITE zinc Allergy Unknown LOCALIZED Verified 08/02/21 13:25 RASH AT INJECTION SITE hydroxychloroquine AdvReac Unknown "BURPED Verified 08/02/21 13:25 FOR DAYS AND TORE MY STOMACH UP" Home Medications Medication Instructions Recorded Confirmed Type allopurinol 300 mg tablet 300 mg PO QAM 11/15/19 08/02/21 History atorvastatin 20 mg tablet (Lipitor) 20 mg PO HS 11/15/19 08/02/21 History bumetanide 1 mg tablet 2 mg PO BID 11/15/19 08/02/21 History digoxin 125 mcg (0.125 mg) tablet 125 mcg PO QAM 11/15/19 08/02/21 History (Digox) insulin aspar prot-insulin aspart 45 unit SUBCUT QPM 11/15/19 08/02/21 History 100 unit/mL (70-30) subcutaneous pen (Novolog Mix 70-30FlexPen U-100) insulin aspar prot-insulin aspart 85 unit SUBCUT QAM 11/15/19 08/02/21 History 100 unit/mL (70-30) subcutaneous pen (Novolog Mix 70-30FlexPen U-100) prednisone 5 mg tablet 5 mg PO QAM 11/15/19 08/02/21 History rabeprazole 20 mg tablet,delayed 20 mg PO QAM 11/15/19 08/02/21 History release (AcipHex) lenalidomide 2.5 mg capsule 2.5 mg PO QAM 03/11/20 08/02/21 History (Revlimid) rivaroxaban 15 mg tablet (Xarelto) 15 mg PO QAM 03/11/20 08/02/21 History diltiazem HCl 240 mg 240 mg PO QAM 04/23/20 08/02/21 History capsule,extended release 24 hr (Cartia XT) potassium citrate 10 mEq (1,080 30 meq PO BID 04/23/20 08/02/21 History mg) tablet,extended release escitalopram oxalate 10 mg tablet 10 mg PO QAM 08/02/21 08/02/21 History loratadine 10 mg tablet (Claritin) 10 mg PO QAM 08/02/21 08/02/21 History metoprolol tartrate 50 mg tablet 50 mg PO QAM 08/02/21 08/02/21 History potassium chloride 10 mEq 30 meq PO TID 08/02/21 08/02/21 History tablet,extended release Past Med/Surg History Medical History A-fib Acute hypokalemia Diabetes Elevated troponin I level GI bleed Hypertension Hypomagnesemia Malignant neoplasm of central portion of female breast (10/01/11) "Left breast pain Finding of a left breast mass Status post biopsy revealing infiltrating ductal carcinoma Status post partial mastectomy and sentinel lymph node biopsy Pathologic stage [id number] Estrogen receptor positive, progesterone receptor positive, HER-2/abelardo nega tive Status post completion of radiation therapy 04/08/2012 received 6120 cGy" Surgical History History of hysterectomy History of lumpectomy Hx of cholecystectomy Family History Other Cancer Diabetes Social History Smoking Status: Former smoker Hx Alcohol Use: No Hx Substance Use: No Preferred Language: Dominican Communication Ability: Effective 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 Reports increased SOB. Cardiovascular: Chest pain with cough, ? radiation to jaw, otherwise no radiation, no chest tightness or palpitations Abdomen: No pain, nausea, vomiting, diarrhea or constipation Musculoskeletal: No joint pain, calf pain, swelling Neurologic: No weakness, numbness/tingling, or balance problems Psychiatric: No anxiety or depression Skin: No rash or itch Physical Exam Physical Exam: Physical exam: General: awake, alert, no apparent distress Head: Normocephalic, atraumatic ENT: PERRL, EOMI, no pharyngeal exudate, mucous membranes moist Chest: Clear to auscultation, on room air, no adventitious breath sounds Cardiac: Afibb with regular rate, no murmur, no JVD, normal peripheral pulses, good capillary refill Abdominal: NABS x 4 quadrants, soft, nontender to palpation, no rebound, guarding or tenderness Extremities: b/l LE edema, pt staes this is her baseline; no erythema, calfs nontender to palpation Psych: Normal mood and affect Neuro: AAO x 3, strength intact bilaterally and rated 5/5, no motor deficits, speech is clear, no peripheral sensory deficits Skin: Bandage on pt's left shoulder due to laceration from dog bite; no rash or erythema Results & Data Results & Data ([facility]) Vital Signs (Past 12 Hours) Vital Signs Temp Pulse Pulse Resp BP BP Pulse Ox 08/02/21 12:07 84 22 163/67 H 91 08/02/21 12:04 81 92 08/02/21 10:29 36.6 C 82 18 161/69 H 97 Laboratory Results Abnormal lab results 08/02/21 08/02/21 08/02/21 Range/Units 10:52 10:52 10:52 WBC 3.37 L (4.8-10.8) K/uL RBC 2.53 L (4.2-5.4) M/uL Hgb 8.3 L (12.0-16.0) g/dL Hct 24.5 L (37-47) % RDW Std Deviation 77.7 H (36.4-46.3) fL RDW Coeff of Griffin 24.3 H (11.5-14.5) % Plt Count 40 L (130-400) K/uL Lymph # (Auto) 0.84 L (1.2-3.4) K/uL Immature Gran # (Auto) 0.03 H (0.00-0.02) K/uL Platelet Estimate Decreased L (Normal) PT 13.5 H (9.0-12.0) Seconds INR 1.4 H (0.9-1.1) APTT 35.0 H (21.0-31.0) Seconds Sodium 133 L (136-145) mmol/L Potassium 3.1 L (3.5-5.1) mmol/L BUN 34 H (6-23) mg/dl Creatinine 1.61 H (0.6-1.2) mg/dl BUN/Creatinine Ratio 21.1 H (10-20) Glucose 181 H (70-99(Fasting)) mg/dl Calcium 8.3 L (8.5-10.1) mg/dl Magnesium 1.5 L (1.7-2.4) mg/dl Total Bilirubin 2.6 H (0.2-1.0) mg/dl Troponin I 0.15 H* (0-0.04) ng/ml Diagnostic Findings Chest X-Ray 08/02/21 10:37 XR chest 1V portable HISTORY: 80 years-old Female SOB acute shortness of breath COMPARISON: Chest radiograph 04/23/2020 TECHNIQUE: Portable AP view of the chest FINDINGS: Cardiac silhouette is enlarged. Trace left and small to moderate right pleural effusions with right greater left bibasilar consolidation. Pulmonary vascular congestion with interstitial coarsening. Degenerative changes of the shoulders and spine. IMPRESSION: 1. Cardiomegaly with pulmonary edema. 2. Right greater than left basilar consolidation suggestive of atelectasis versus pneumonia. 3. Small to moderate right and trace left pleural effusions. ACT 112: Negative or not required by law. The above report was generated using voice recognition software. It may contain grammatical, syntax or spelling errors. Electronically signed by: Trav Marcelo M.D. 08/02/2021 12:58 PM Medications Administered Home Medications Medication Instructions Recorded Confirmed Type allopurinol 300 mg tablet 300 mg PO DAILY 11/15/19 07/18/21 History atorvastatin 20 mg tablet (Lipitor) 20 mg PO DAILY 11/15/19 07/18/21 History bumetanide 1 mg tablet 2 mg PO BID 11/15/19 07/18/21 History digoxin 125 mcg (0.125 mg) tablet 125 mcg PO DAILY 11/15/19 07/18/21 History (Digox) insulin aspar prot-insulin aspart 60 unit SUBCUT QPM 11/15/19 07/18/21 History 100 unit/mL (70-30) subcutaneous pen (Novolog Mix 70-30FlexPen U-100) insulin aspar prot-insulin aspart 100 unit SUBCUT QAM 11/15/19 07/18/21 History 100 unit/mL (70-30) subcutaneous pen (Novolog Mix 70-30FlexPen U-100) metoprolol tartrate 100 mg tablet 100 mg PO BID 11/15/19 07/18/21 History (Lopressor) prednisone 5 mg tablet 5 mg PO DAILY 11/15/19 07/18/21 History rabeprazole 20 mg tablet,delayed 20 mg PO DAILY 11/15/19 07/18/21 History release (AcipHex) lenalidomide 2.5 mg capsule 2.5 mg PO DAILY 03/11/20 07/18/21 History (Revlimid) rivaroxaban 15 mg tablet (Xarelto) 15 mg PO DAILY 03/11/20 07/18/21 History diltiazem HCl 240 mg 240 mg PO DAILY 04/23/20 07/18/21 History capsule,extended release 24 hr (Cartia XT) potassium citrate 10 mEq (1,080 20 meq PO TID 04/23/20 07/18/21 History mg) tablet,extended release ECG Additional Comments: Atrial fibrillation Possible Anterior infarct (cited on or before 23-APR-2020) ST & T wave abnormality, consider inferolateral ischemia Abnormal ECG When compared with ECG of 23-APR-2020 07:24, No significant change was found Code Status & VTE Plan Code Status Full Code VTE Prophylaxis Plan VTE Prophylaxis will be ordered: Yes Supervising Physician Co-Signing Physician Notes I have personally evaluated and examined this patient. I agree with assessment and plan of Marquis Watt PA-C. Elevated troponin likely secondary to demand ischemia secondary to myelodysplastic syndrome for which she receives blood transfusions. Patient states she is only having chest pain with cough which certainly could be contributory she has had recent COVID-19 infection.Admit and continue close observation on telemetry service. PG Care Time/CCT Total # of Minutes Spent Total Time Spent with Patient: Total time spent is greater than 50% in coordination of care (as documented) at patient's floor/unit and/or counseling patient: Coding Level of Care Code 68588 Initial Inpt Care Lvl 3 Diagnoses Chest pain R07.9 Atrial fibrillation I48.91 Atrial fibrillation type: unspecified Diabetes E11.9; Z79.4 Diabetes mellitus complication status: without complication Diabetes mellitus exterminator insulin use: with shelter use Diabetes mellitus type: type 2 Hypertension I10 Hypertension type: essential hypertension Pancytopenia D61.818 Hypokalemia E87.6 Hyponatremia E87.1 Hypomagnesemia E83.42 Elevated bilirubin R17 Elevated troponin I level R77.8 Lumbar spinal stenosis M48.061 Myelodysplastic syndrome with 5 q minus D46.C SOB (shortness of breath) R06.02 Rheumatoid arthritis M06.9 (1) Diabetes Diabetes mellitus complication status: without complication Diabetes mellitus shelter insulin use: with exterminator use Diabetes mellitus type: type 2 Qualified Code(s): E11.9 - Type 2 diabetes mellitus without complications; 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
[2021-08-02] MEDS ORDERED: ASPIRIN CHEW 324 MG PO STA (13:39)
[2021-08-02] MEDS ORDERED: POTASSIUM CHLORIDE CRTAB 20 MEQ TABCR PO STA ×3 (13:39→18:56)
[2021-08-02] MEDS ORDERED: MAGNESIUM SULFATE / D5W 1 GM/100 ML BAG IV STA (13:50)
[2021-08-02] MEDS ORDERED: METOPROLOL TARTRATE 50 MG TAB PO ONE (14:47)
[2021-08-02] MEDS ORDERED: dilTIAZem HCL 240 MG CAPCR PO ONE (15:00)
[2021-08-02] MEDS ORDERED: GLUCOSE 40% GEL 15 GM TUBE PO PRN (16:53)
[2021-08-02] MEDS ORDERED: PHARMACY GLYCEMIC MGMT CONSULT PRN ×2 (16:53→18:18)
[2021-08-02] MEDS ORDERED: DEXTROSE 50% 50 ML SYRINGE IV PRN (16:53)
[2021-08-02] MEDS ORDERED: ONDANSETRON INJ 2 MG/ML 2 ML VIAL IV PRN (16:53)
[2021-08-02] MEDS ORDERED: GLUCOSE 10 TABS/TUBE PO PRN (16:53)
[2021-08-02] MEDS ORDERED: CARBOHYDRATES FOR HYPOGLYCEMIA PO PRN (16:53)
[2021-08-02] MEDS ORDERED: GLUCAGON FOR INJ 1 MG VIAL SQ PRN (16:53)
--- NOTE | 2021-08-02 17:03 | Electrocardiogram Report ---
Test Reason : Blood Pressure : / mmHG Vent. Rate : 083 BPM Atrial Rate : 089 BPM P-R Int : 000 ms QRS Dur : 092 ms QT Int : 376 ms P-R-T Axes : 000 065 243 degrees QTc Int : 441 ms Atrial fibrillation Possible Anterior infarct (cited on or before 23-APR-2020) Abnormal ECG When compared with ECG of 23-APR-2020 07:24, No significant change was found Confirmed by Praneeth Dowell ([id number]) on 08/02/2021 5:03:28 PM Referred By: Confirmed By:Praneeth Dowell
[2021-08-02] MEDS: POTASSIUM CITRATE 10 MEQ TAB PO SCH ×2 (17:42→21:07)
[2021-08-02 17:47] LABS: BUN Creatinine Ratio 21.3 (10-20); Calcium 8.2 mg/dl (8.5-10.1); Creatinine Clr Calc Pharmacy 33.8 ml/min; Est GFR (African American) 38.3 ml/min; Potassium 3.1 mmol/L (3.5-5.1)
[2021-08-02 17:53] LABS: Troponin I 0.31 ng/ml (0-0.04)
[2021-08-02] MEDS ORDERED: INSULIN HUMAN NPH SC ONE (18:30)
[2021-08-02] MEDS ORDERED: AZITHROMYCIN 250 MG TAB PO ONE (18:53)
[2021-08-02] MEDS ORDERED: CEFEPIME 2,000 MG in SYRINGE 0 ML IV ONE (19:15)
[2021-08-02] MEDS: INSULIN ASPART PER UNIT SC SCH ×3 (19:48→23:40)
[2021-08-02] MEDS ORDERED: BUMETANIDE 2 MG in SYRINGE 0 ML IV ONE (20:00)
[2021-08-02] MEDS ORDERED: BUMETANIDE 1 MG TAB PO SCH (21:00)
[2021-08-02 21:59] LABS: BUN Creatinine Ratio 20.9 (10-20); Calcium 8.2 mg/dl (8.5-10.1); Creatinine Clr Calc Pharmacy 32.1 ml/min; Est GFR (African American) 35.9 ml/min; Potassium 3.8 mmol/L (3.5-5.1)
[2021-08-03] MEDS: INSULIN ASPART PER UNIT SC SCH ×5 (04:32→20:48)
[2021-08-03 07:11] LABS: Mean Corpuscular Hgb Conc 33.3 g/dL (32-36)
[2021-08-03 07:22] LABS: Mean Corpuscular Hemoglobin 32.1 pg (25-34); Mean Corpuscular Volume 96.3 fL (80-100); RDW Coefficient of Variation 24.2 % (11.5-14.5); Red Blood Count 2.18 M/uL (4.2-5.4); White Blood Count 2.85 K/uL (4.8-10.8)
[2021-08-03 07:38] LABS: Albumin Globulin Ratio 1.4 (0.9-2); Albumin Level 3.2 gm/dl (3.4-5.0); BUN Creatinine Ratio 23.4 (10-20); Bilirubin,Total 2.3 mg/dl (0.2-1.0); Calcium 8.2 mg/dl (8.5-10.1); Creatinine Clr Calc Pharmacy 32.7 ml/min; Est GFR (African American) 37.1 ml/min; Globulin 2.3 gm/dl (2.5-4.0); Potassium 3.9 mmol/L (3.5-5.1); Total Protein 5.5 gm/dl (6.0-8.3)
[2021-08-03 07:43] LABS: ALC (manual) 0.62 K/uL (1.2-3.4); Anisocytosis Present; Basophils # (manual) 0.07 K/uL (0-0.2); Basophils % (manual) 2.6 %; Eosinophils # (manual) 0.07 K/uL (0-0.5); Eosinophils % (manual) 2.6 %; Hypogranular Neutrophils 1+; Lymphocytes # (manual) 0.62 K/uL (1.2-3.4); Lymphocytes % (manual) 21.8 %; Monocytes # (manual) 0.18 K/uL (0.11-0.59); Monocytes % (manual) 6.4 %; Neutrophils % (manual) 66.6 %; Ovalocytes 1+; Platelet Count 34 K/uL (130-400); Platelet Estimate Decreased (Normal)
[2021-08-03] MEDS ORDERED: INSULIN HUMAN NPH SC SCH (08:00)
[2021-08-03] MEDS ORDERED: SODIUM CHLORIDE 0.9% 250 ML IV PRN ×2 (08:02→08:04)
[2021-08-03 08:32] LABS: Estimated Average Glucose 146 mg/dl; Hemoglobin A1C 6.7 % (4.5-5.6)
[2021-08-03] MEDS: INSULIN HUMAN NPH SC SCH ×2 (08:36→17:24)
[2021-08-03] MEDS: CEFEPIME 2,000 MG in SYRINGE 0 ML IV SCH ×2 (08:42→20:48)
[2021-08-03] MEDS: dilTIAZem HCL 240 MG CAPCR PO SCH (08:43)
[2021-08-03] MEDS: ESCITALOPRAM OXALATE 10 MG TAB PO SCH (08:43)
[2021-08-03] MEDS: METOPROLOL TARTRATE 50 MG TAB PO SCH (08:43)
[2021-08-03] MEDS: LORATADINE 10 MG TAB PO SCH (08:43)
[2021-08-03] MEDS: PANTOprazole 40 MG TAB PO SCH (08:43)
[2021-08-03] MEDS: ATORVASTATIN 20 MG TAB PO SCH (08:44)
[2021-08-03] MEDS: RIVAROXABAN 15 MG TAB PO SCH (08:44)
[2021-08-03] MEDS: allopurinoL 300 MG TAB PO SCH (08:44)
[2021-08-03] MEDS: predniSONE 5 MG TAB PO SCH (08:44)
[2021-08-03] MEDS: POTASSIUM CITRATE 10 MEQ TAB PO SCH ×3 (08:44→20:48)
[2021-08-03] MEDS: AZITHROMYCIN 250 MG TAB PO SCH (08:44)
[2021-08-03] MEDS: BUMETANIDE 4 MG in SYRINGE 0 ML IV SCH ×2 (08:49→17:24)
[2021-08-03] MEDS ORDERED: ASPIRIN 81 MG CHEW PO SCH (09:00)
[2021-08-03] MEDS ORDERED: BUMETANIDE 2 MG in SYRINGE 0 ML IV SCH (09:00)
[2021-08-03] MEDS ORDERED: DIGOXIN 0.125 MG TAB PO SCH (09:00)
--- NOTE | 2021-08-03 09:38 | Electrocardiogram Report ---
Test Reason : Blood Pressure : / mmHG Vent. Rate : 067 BPM Atrial Rate : 035 BPM P-R Int : 000 ms QRS Dur : 086 ms QT Int : 426 ms P-R-T Axes : 000 101 -57 degrees QTc Int : 450 ms Poor data quality, interpretation may be adversely affected Atrial fibrillation Rightward axis Possible Septal infarct (cited on or before 23-APR-2020) Abnormal ECG When compared with ECG of 02-AUG-2021 10:38, the inferolateral ST depression has improved Confirmed by Oliver Davis ([id number]) on 08/03/2021 9:37:39 AM Referred By: REFERRED SELF Confirmed By:Oliver Davis
--- NOTE | 2021-08-03 10:12 | Pharmacy Report ---
Pharmacy Glycemic Short Note 2 - Date of Service August 03, 2021 - Glycemic Short BSG Results (Last 24 hours): 08/02/21 08/02/21 08/02/21 10:52 16:57 17:05 Glucose 181 H 192 H POC Glucose 215 H 08/02/21 08/02/21 08/02/21 19:28 21:17 23:23 Glucose 233 H POC Glucose 283 H 269 H 08/03/21 08/03/21 08/03/21 04:21 06:41 07:32 Glucose 135 H POC Glucose 143 H 163 H OUTPATIENT ANTIDIABETIC REGIMEN: * Novolog 70/30 * 85 units SC qAM * 45 units SC qPM * HbA1c: 6.7% (08/03/21) ASSESSMENT: * PC is a 80 year old female who presented to ED on 08/02 with worsening shortness of breath and chest pain * Patient well-controlled with current outpatient regimen based on most recent HbA1c * BSGs elevated on admission > 200 mg/dL, no insulin given prior to admission * Patient takes chronic prednisone 5 mg PO daily PLAN FOR INPATIENT GLYCEMIC CONTROL: * Hold 70/30 insulin while inpatient * Basal insulin * NPH 30 units SC BIDM * Bolus insulin * NovoLog per scale ACHS or Q6hrs while NPO * Goal Range: Low 110 mg/dL - High 140 mg/dL * Correction Factor: 20 mg/dL/unit * Nutritional / Prandial insulin per carb ratio of 1 unit per 6 grams CHO consumed PLAN FOR DISCHARGE: * HbA1c of 6.7% is at goal for patient, reasonable to discharge with current outpatient regimen provided patient is not experiencing hypoglycemia as an outpatient
--- NOTE | 2021-08-03 11:50 | Cardiology Consultation ---
Date of Consultation August 03, 2021 History of Present Illness Reason for Consultation: Elevated troponin Requesting Physician: This is primary patient for Dr. Ignacio who she sees as an outpatient Attending Physician: Charles Cooper MD History of Present Illness She has chronic shortness of breath and chronic lower extremity edema. She came to the hospital due to increasing dyspnea and chest tightness when she tries to lay back or if she has coughing. She denies any chest discomfort if she is sitting up. She denies any worsening chest discomfort if she ambulates with her walker. She sleeps on multiple pillows at home and the head of her bed here was pretty significantly elevated and she notes this is no different than at home. She thinks her lower extremity edema may be slightly worse. She denies any lightheadedness or dizziness. She lives by herself and walks with a walker. She denies any presyncope syncope or falls. She is unaware of any palpitations or fluttering with her chronic atrial fibrillation. She denies any increased abdominal distention but she describes her abdomen as chronically distended. She does have some easy bruising. With her myelodysplastic syndrome she does require outpatient transfusions. The rest of a complete review of systems is negative. Allergies Allergy/AdvReac Type Severity Reaction Status Date / Time hydrocodone Allergy Mild UNKNOWN Verified 08/02/21 13:25 "HAPPENED LONG TIME AGO" phenol Allergy Unknown LOCALIZED Verified 08/02/21 13:25 RASH AT INJECTION SITE protamine Allergy Unknown LOCALIZED Verified 08/02/21 13:25 RASH AT INJECTION SITE sodium phosphate Allergy Unknown LOCALIZED Verified 08/02/21 13:25 RASH AT INJECTION SITE zinc Allergy Unknown LOCALIZED Verified 08/02/21 13:25 RASH AT INJECTION SITE hydroxychloroquine AdvReac Unknown "BURPED Verified 08/02/21 13:25 FOR DAYS AND TORE MY STOMACH UP" Home Medications Medication Instructions Recorded Confirmed Type allopurinol 300 mg tablet 300 mg PO QAM 11/15/19 08/02/21 History atorvastatin 20 mg tablet (Lipitor) 20 mg PO HS 11/15/19 08/02/21 History bumetanide 1 mg tablet 2 mg PO BID 11/15/19 08/02/21 History digoxin 125 mcg (0.125 mg) tablet 125 mcg PO QAM 11/15/19 08/02/21 History (Digox) insulin aspar prot-insulin aspart 45 unit SUBCUT QPM 11/15/19 08/02/21 History 100 unit/mL (70-30) subcutaneous pen (Novolog Mix 70-30FlexPen U-100) insulin aspar prot-insulin aspart 85 unit SUBCUT QAM 11/15/19 08/02/21 History 100 unit/mL (70-30) subcutaneous pen (Novolog Mix 70-30FlexPen U-100) prednisone 5 mg tablet 5 mg PO QAM 11/15/19 08/02/21 History rabeprazole 20 mg tablet,delayed 20 mg PO QAM 11/15/19 08/02/21 History release (AcipHex) lenalidomide 2.5 mg capsule 2.5 mg PO QAM 03/11/20 08/02/21 History (Revlimid) rivaroxaban 15 mg tablet (Xarelto) 15 mg PO QAM 03/11/20 08/02/21 History diltiazem HCl 240 mg 240 mg PO QAM 04/23/20 08/02/21 History capsule,extended release 24 hr (Cartia XT) potassium citrate 10 mEq (1,080 30 meq PO BID 04/23/20 08/02/21 History mg) tablet,extended release escitalopram oxalate 10 mg tablet 10 mg PO QAM 08/02/21 08/02/21 History loratadine 10 mg tablet (Claritin) 10 mg PO QAM 08/02/21 08/02/21 History metoprolol tartrate 50 mg tablet 50 mg PO QAM 08/02/21 08/02/21 History potassium chloride 10 mEq 30 meq PO TID 08/02/21 08/02/21 History tablet,extended release Patient History Medical History A-fib Acute hypokalemia Diabetes Elevated troponin I level GI bleed Hypertension Hypomagnesemia Malignant neoplasm of central portion of female breast (10/01/11) "Left breast pain Finding of a left breast mass Status post biopsy revealing infiltrating ductal carcinoma Status post partial mastectomy and sentinel lymph node biopsy Pathologic stage [id number] Estrogen receptor positive, progesterone receptor positive, HER-2/abelardo negative Status post completion of radiation therapy 04/08/2012 received 6120 cGy" Surgical History History of hysterectomy History of lumpectomy Hx of cholecystectomy Family History Other Cancer Diabetes Social History Smoking Status: Former smoker Hx Alcohol Use: No Hx Substance Use: No Preferred Language: [place] Communication Ability: Effective Exhibit Designer Required: No Beliefs That Will Affect Care: None Current Living Situation: Alone Feels Safe at Home: Yes Safety Concerns: Feels Safe At This Time Assistive Devices: Oxygen - Continuous and Walker Results & Data ([facility]) Vital Signs (Past 12 Hours) Vital Signs Temp Pulse Pulse Resp BP BP Pulse Ox 08/03/21 11:35 36.5 C 61 16 109/60 98 08/03/21 11:16 36.8 C 68 18 120/56 L 08/03/21 11:08 37.1 C 68 20 122/66 95 08/03/21 08:43 82 08/03/21 08:07 36.7 C 80 20 123/63 91 08/03/21 07:16 72 08/03/21 03:55 37.0 C 84 20 145/67 H 94 08/03/21 02:26 08/02/21 23:47 64 Pulse Ox 08/03/21 11:35 08/03/21 11:16 08/03/21 11:08 08/03/21 08:43 08/03/21 08:07 08/03/21 07:16 08/03/21 03:55 08/03/21 02:26 97 08/02/21 23:47 awake alert oriented x3. HEENT 2+ carotid upstrokes Lungs: Clear to auscultation bilaterally decreased breath sounds in the bases Heart: Irregular rate and rhythm no appreciable murmurs Abdomen: Soft obese nontender nondistended Extremities: Moderate pitting edema to the mid tibia bilaterally slightly worse on the left compared to the right Psychiatric: Her affect appeared appropriate Her EKG and inpatient studies were reviewed as well as her outpatient records IMPRESSIONS: (1) Atrial fibrillation: (2) Hypertension: (3) Elevated troponin I level: Suspected demand ischemia (4) Concern for right sided pneumonia:antibiotics started (5) Chronic steroid use: (6) Myelodysplastic syndrome (7) CKD If you look at her EKG on admission she does have ST depression in the inferior lateral leads. The EKG changes are likely a combination of digoxin and its changes on her EKG along with demand ischemia from her infection and her anemia. Given her myelodysplastic syndrome and the need for chronic transfusions she is not a great candidate to consider coronary intervention. She is not having any chest tightness or chest pressure with activity and at this point her chest discomfort seems to be related to her pneumonia and pleuritic in nature. I would trend her troponin for now she does not need heparin as she is already anticoagulated. She should have an echocardiogram to reassess her LV function and look for discrete wall motion abnormalities. She should be reassessed between her 2 units of blood as she may need additional Bumex in between in order to avoid worsening heart failure symptoms I did discuss with nursing she should be wearing compression stockings given her legs are dependent throughout the day. Her dig level was elevated at 1.7. I would reduce her dig to every other day in order to avoid dig toxicity with her chronic kidney disease.
--- NOTE | 2021-08-03 12:34 | Hospitalist Progress Note ---
Date of Service August 03, 2021 Assessment & Plan (1) Chest pain: Plan: - Presented on 08/03 with acute chest pain likely related to worsening cough with pleuritic nature. - EKG did show ST-T wave abnormalities, consider lateral ischemia. - Initial troponin 0.15, increased to 0.45. Continue to trend q8hr moving forward. - Continue home meds, including Diltiazem, Atorvastatin, Metoprolol, Digoxin and Xarelto. - Cardiology consulted, appreciate their input. EKG changes likely related to digoxin along with demand ischemia from infection and anemia. - Updated ECHO is pending. (2) SOB (shortness of breath): Plan: - Related to CHF exacerbation vs. PNA vs. anemia vs. other. - CXR 08/02/21 with pulm edema noted, right greater than left basilar consolidation suggestive of atelectasis vs. PNA and small to moderate right pleural effusions. - Updated ECHO pending; of note, BNP level elevated at 514. - On Bumex 4 mg IV BID; will need to monitor closely during pRBC transfusion this afternoon to evaluate for fluid overload. Monitor I/O and daily weights. - On antibiotic coverage with Cefepime/Azithromycin for coverage of PNA. Procalcitonin level was 0.13. - Likelihood of PE is very low, as patient is anticoagulated with Xarelto 15 mg PO daily. - Currently stable on room air. (3) Elevated troponin I level: Plan: - Likely related to demand ischemia in setting of MDS induced anemia + infection. - EKG on admission did show ST T wave changes, as noted above. - Cardiology following, will monitor Troponin over the next day. (4) Pneumonia: Plan: - CXR showed right greater than sign left basilar consolidation suggestive of atelectasis VS pneumonia. Cardiomegaly with pulmonary edema also noted as well as small to moderate right and trace left pleural effusions. - Procalcitonin level 0.13. Sputum culture is pending. - On Cefepime IV along with PO Azithromycin for empiric coverage. - MRSA swab pending. (5) Atrial fibrillation: Plan: -Currently in A. fib, rate controlled on telemetry. -Continue home meds, including digoxin (converting to QOD dosing due to elevated level of 1.7), diltiazem 240 mg daily, and metoprolol 50 mg daily. -Continue Xarelto - will continue med despite chronic thrombocytopenia with plt count <50K. Consider holding if plt <30K in the future. (6) Myelodysplastic syndrome with 5 q minus: Plan: - Continue Revlimid 2.5 mg PO daily. - Follows with CCP for management; she receives Retacrit 40,000 units weekly with next dose due on 08/07/21. - Transfuse for Hgb <9 gm/dL (in setting of cardiac disease) along with plt <10K or active bleeding. - Will require outpatient hematology follow up after hospital discharge. (7) Diabetes: Plan: - Home dosing NovoLog 7030 mix 85 units every morning, 45 units every afternoon. - Pharmacy consulted for glycemic management. - Updated Hgb A1C level of 6.7, will need to follow with PCP for management. (8) Hypertension: Plan: - Continue home Diltiazem, Metoprolol as prescribed. - Also receiving Bumex 4 mg IV BID, monitor BP closely. (9) Lumbar spinal stenosis: Plan: - Baseline mobility with walker. (10) Elevated bilirubin: Plan: - Total lola increased to 2.6 in the ER, now improved to 2.3. - LFTs otherwise normal, no jaundice, no abdominal complaints. (11) Rheumatoid arthritis: Plan: - Patient on prednisone 5 mg daily, will continue this. - Consider stress dose Hydrocortisone if necessary. Plan: DVT ppx: Xarelto 15 mg PO daily (hold if plt <30K). FULL CODe Dispo: Discharge pending improvement in resp symptoms. Admission and Anticipated Discharge Date Admission Date: August 02, 2021 Supervising Physician Co-Signing Physician Notes Attending Attestation: Chart reviewed in detail, care plan d/w TENZIN Barragan. I agree w/ the coelho components of her documentation. Jv Burnham MD Subjective Mrs. Skaggs continues to experience SOB, both at rest and with exertion. She has increasing LE edema. Weight increased from 91.6 kg on 08/01 to 98.2 kg on 08/02. She has a chronic ongoing cough. Chest pain has improved. Telemetry with A. fib, 90's overnight. Hgb level decreased to 7.0 gm/dL, related to underlying transfusion dependent MDS. She will receive 2 units pRBC. Remains on abx for treatment of pneumonia along with Bumex 4 mg IV BID for treatment of CHF exacerbation in setting of elevated BNP and worsening dyspnea. Of note, patient has continued to take Xarelto at home despite chronic thrombocytopenia with Plt count <50K. Review of Systems Review of Systems: Constitutional: +Fatigue; Negative for weight loss, night sweats, or fever Eyes: Negative for event change of vision ENT: Negative for epistaxis, nasal discharge, sore throat, or deafness Cardiovascular: Negative for anginal type chest pain, palpitations, dizziness, diaphoresis Respiratory: +SOB at rest and with exertion, chronic non productive cough Gastrointestinal: Negative for diarrhea, hematemesis, melena, nausea, vomiting, or dyspepsia Lymphatic/Hematologic: +LE swelling Musculoskeletal: Negative for new joint or back pain Physical Exam Physical Exam: Constitutional: Vitals are stable Respiratory: Lung sounds were generally clear bilaterally. Cardiovascular: Heart was RRR without significant murmur, gallops or rubs. Musculoskeletal System: The musculoskeletal system seemed concordant with age. Skin: The skin was negative for jaundice. Extremities: +2 bilat LE pitting edema noted Results & Data Results & Data ([facility]) Vital Signs (Past 12 Hours) Vital Signs Temp Pulse Pulse Resp BP BP Pulse Ox 08/03/21 11:50 36.8 C 62 16 111/56 L 93 08/03/21 11:35 36.5 C 61 16 109/60 98 08/03/21 11:16 36.8 C 68 18 120/56 L 08/03/21 11:08 37.1 C 68 20 122/66 95 08/03/21 08:43 82 08/03/21 08:07 36.7 C 80 20 123/63 91 08/03/21 07:16 72 08/03/21 03:55 37.0 C 84 20 145/67 H 94 08/03/21 02:26 Pulse Ox 08/03/21 11:50 08/03/21 11:35 08/03/21 11:16 08/03/21 11:08 08/03/21 08:43 08/03/21 08:07 08/03/21 07:16 08/03/21 03:55 08/03/21 02:26 97 Laboratory Results 08/03/21 08/03/21 08/03/21 Range/Units 11:25 07:32 06:41 WBC (4.8-10.8) K/uL RBC (4.2-5.4) M/uL Hgb (12.0-16.0) g/dL Hct (37-47) % MCV (80-100) fL MCH (25-34) pg MCHC (32-36) g/dL RDW Std Deviation (36.4-46.3) fL RDW Coeff of Griffin (11.5-14.5) % Plt Count (130-400) K/uL Neutrophils % (Manual) % Lymphocytes % (Manual) % Monocytes % (Manual) % Eosinophils % (Manual) % Basophils % (Manual) % Neutrophils # (Manual) (1.4-6.5) K/uL Total Absolute Neuts (1.4-6.5) K/uL Lymphocytes # (Manual) (1.2-3.4) K/uL Total Abs Lymphocytes (1.2-3.4) K/uL Monocytes # (Manual) (0.11-0.59) K/uL Eosinophils # (Manual) (0-0.5) K/uL Basophils # (Manual) (0-0.2) K/uL Hypogranular Neuts Platelet Estimate (Normal) Anisocytosis Ovalocytes Sodium (136-145) mmol/L Potassium (3.5-5.1) mmol/L Chloride (98-107) mmol/L Carbon Dioxide (21-32) mmol/L Anion Gap (3-11) BUN (6-23) mg/dl Creatinine (0.6-1.2) mg/dl Est Cr Clr Drug Dosing ml/min Est GFR ( Amer) ml/min Est GFR (Non-Af Amer) ml/min BUN/Creatinine Ratio (10-20) Glucose (70-99(Fasting)) mg/dl POC Glucose 192 H 163 H (70-99) mg/dl Estimat Average Glucose mg/dl Hemoglobin A1c (4.5-5.6) % Calcium (8.5-10.1) mg/dl Magnesium (1.7-2.4) mg/dl Total Bilirubin (0.2-1.0) mg/dl AST (13-39) U/L ALT (7-52) U/L Alkaline Phosphatase (34-104) U/L Troponin I (0-0.04) ng/ml B-Natriuretic Peptide 514 H (0-100) pg/ml Total Protein (6.0-8.3) gm/dl Albumin (3.4-5.0) gm/dl Globulin (2.5-4.0) gm/dl Albumin/Globulin Ratio (0.9-2) Procalcitonin (0-0.5) ng/ml Nasal Screen MRSA (PCR) (Negative) Digoxin (0.8-2.0) ng/ml SARS-CoV-2, RNA, NAAT (NEGATIVE) Blood Type Antibody Screen Crossmatch 08/03/21 08/03/21 08/03/21 Range/Units 06:41 06:41 06:41 WBC (4.8-10.8) K/uL RBC (4.2-5.4) M/uL Hgb (12.0-16.0) g/dL Hct (37-47) % MCV (80-100) fL MCH (25-34) pg MCHC (32-36) g/dL RDW Std Deviation (36.4-46.3) fL RDW Coeff of Griffin (11.5-14.5) % Plt Count (130-400) K/uL Neutrophils % (Manual) % Lymphocytes % (Manual) % Monocytes % (Manual) % Eosinophils % (Manual) % Basophils % (Manual) % Neutrophils # (Manual) (1.4-6.5) K/uL Total Absolute Neuts (1.4-6.5) K/uL Lymphocytes # (Manual) (1.2-3.4) K/uL Total Abs Lymphocytes (1.2-3.4) K/uL Monocytes # (Manual) (0.11-0.59) K/uL Eosinophils # (Manual) (0-0.5) K/uL Basophils # (Manual) (0-0.2) K/uL Hypogranular Neuts Platelet Estimate (Normal) Anisocytosis Ovalocytes Sodium 133 L (136-145) mmol/L Potassium 3.9 (3.5-5.1) mmol/L Chloride 99 (98-107) mmol/L Carbon Dioxide 28 (21-32) mmol/L Anion Gap 6 (3-11) BUN 36 H (6-23) mg/dl Creatinine 1.54 H (0.6-1.2) mg/dl Est Cr Clr Drug Dosing 32.7 ml/min Est GFR ( Amer) 37.1 ml/min Est GFR (Non-Af Amer) 32.0 ml/min BUN/Creatinine Ratio 23.4 H (10-20) Glucose 135 H (70-99(Fasting)) mg/dl POC Glucose (70-99) mg/dl Estimat Average Glucose 146 mg/dl Hemoglobin A1c 6.7 H (4.5-5.6) % Calcium 8.2 L (8.5-10.1) mg/dl Magnesium 2.0 (1.7-2.4) mg/dl Total Bilirubin 2.3 H (0.2-1.0) mg/dl AST 9 L (13-39) U/L ALT 10 (7-52) U/L Alkaline Phosphatase 65 (34-104) U/L Troponin I (0-0.04) ng/ml B-Natriuretic Peptide (0-100) pg/ml Total Protein 5.5 L (6.0-8.3) gm/dl Albumin 3.2 L (3.4-5.0) gm/dl Globulin 2.3 L (2.5-4.0) gm/dl Albumin/Globulin Ratio 1.4 (0.9-2) Procalcitonin (0-0.5) ng/ml Nasal Screen MRSA (PCR) (Negative) Digoxin 1.7 (0.8-2.0) ng/ml SARS-CoV-2, RNA, NAAT (NEGATIVE) Blood Type Antibody Screen Crossmatch 08/03/21 08/03/21 08/02/21 Range/Units 06:41 04:21 23:23 WBC 2.85 L (4.8-10.8) K/uL RBC 2.18 L (4.2-5.4) M/uL Hgb 7.0 L (12.0-16.0) g/dL Hct 21.0 L (37-47) % MCV 96.3 (80-100) fL MCH 32.1 (25-34) pg MCHC 33.3 (32-36) g/dL RDW Std Deviation 78.0 H (36.4-46.3) fL RDW Coeff of Griffin 24.2 H (11.5-14.5) % Plt Count 34 L (130-400) K/uL Neutrophils % (Manual) 66.6 % Lymphocytes % (Manual) 21.8 % Monocytes % (Manual) 6.4 % Eosinophils % (Manual) 2.6 % Basophils % (Manual) 2.6 % Neutrophils # (Manual) 1.90 (1.4-6.5) K/uL Total Absolute Neuts 1.90 (1.4-6.5) K/uL Lymphocytes # (Manual) 0.62 L (1.2-3.4) K/uL Total Abs Lymphocytes 0.62 L (1.2-3.4) K/uL Monocytes # (Manual) 0.18 (0.11-0.59) K/uL Eosinophils # (Manual) 0.07 (0-0.5) K/uL Basophils # (Manual) 0.07 (0-0.2) K/uL Hypogranular Neuts 1+ Platelet Estimate Decreased L (Normal) Anisocytosis Present Ovalocytes 1+ Sodium (136-145) mmol/L Potassium (3.5-5.1) mmol/L Chloride (98-107) mmol/L Carbon Dioxide (21-32) mmol/L Anion Gap (3-11) BUN (6-23) mg/dl Creatinine (0.6-1.2) mg/dl Est Cr Clr Drug Dosing ml/min Est GFR ( Amer) ml/min Est GFR (Non-Af Amer) ml/min BUN/Creatinine Ratio (10-20) Glucose (70-99(Fasting)) mg/dl POC Glucose 143 H 269 H (70-99) mg/dl Estimat Average Glucose mg/dl Hemoglobin A1c (4.5-5.6) % Calcium (8.5-10.1) mg/dl Magnesium (1.7-2.4) mg/dl Total Bilirubin (0.2-1.0) mg/dl AST (13-39) U/L ALT (7-52) U/L Alkaline Phosphatase (34-104) U/L Troponin I (0-0.04) ng/ml B-Natriuretic Peptide (0-100) pg/ml Total Protein (6.0-8.3) gm/dl Albumin (3.4-5.0) gm/dl Globulin (2.5-4.0) gm/dl Albumin/Globulin Ratio (0.9-2) Procalcitonin (0-0.5) ng/ml Nasal Screen MRSA (PCR) (Negative) Digoxin (0.8-2.0) ng/ml SARS-CoV-2, RNA, NAAT (NEGATIVE) Blood Type Antibody Screen Crossmatch 08/02/21 08/02/21 08/02/21 Range/Units 21:17 21:17 19:28 WBC (4.8-10.8) K/uL RBC (4.2-5.4) M/uL Hgb (12.0-16.0) g/dL Hct (37-47) % MCV (80-100) fL MCH (25-34) pg MCHC (32-36) g/dL RDW Std Deviation (36.4-46.3) fL RDW Coeff of Griffin (11.5-14.5) % Plt Count (130-400) K/uL Neutrophils % (Manual) % Lymphocytes % (Manual) % Monocytes % (Manual) % Eosinophils % (Manual) % Basophils % (Manual) % Neutrophils # (Manual) (1.4-6.5) K/uL Total Absolute Neuts (1.4-6.5) K/uL Lymphocytes # (Manual) (1.2-3.4) K/uL Total Abs Lymphocytes (1.2-3.4) K/uL Monocytes # (Manual) (0.11-0.59) K/uL Eosinophils # (Manual) (0-0.5) K/uL Basophils # (Manual) (0-0.2) K/uL Hypogranular Neuts Platelet Estimate (Normal) Anisocytosis Ovalocytes Sodium 130 L (136-145) mmol/L Potassium 3.8 D (3.5-5.1) mmol/L Chloride 96 L (98-107) mmol/L Carbon Dioxide 27 (21-32) mmol/L Anion Gap 7 (3-11) BUN 33 H (6-23) mg/dl Creatinine 1.58 H (0.6-1.2) mg/dl Est Cr Clr Drug Dosing 32.1 ml/min Est GFR ( Amer) 35.9 ml/min Est GFR (Non-Af Amer) 31.0 ml/min BUN/Creatinine Ratio 20.9 H (10-20) Glucose 233 H (70-99(Fasting)) mg/dl POC Glucose 283 H (70-99) mg/dl Estimat Average Glucose mg/dl Hemoglobin A1c (4.5-5.6) % Calcium 8.2 L (8.5-10.1) mg/dl Magnesium (1.7-2.4) mg/dl Total Bilirubin (0.2-1.0) mg/dl AST (13-39) U/L ALT (7-52) U/L Alkaline Phosphatase (34-104) U/L Troponin I 0.45 H* (0-0.04) ng/ml B-Natriuretic Peptide (0-100) pg/ml Total Protein (6.0-8.3) gm/dl Albumin (3.4-5.0) gm/dl Globulin (2.5-4.0) gm/dl Albumin/Globulin Ratio (0.9-2) Procalcitonin (0-0.5) ng/ml Nasal Screen MRSA (PCR) (Negative) Digoxin (0.8-2.0) ng/ml SARS-CoV-2, RNA, NAAT (NEGATIVE) Blood Type Antibody Screen Crossmatch 08/02/21 08/02/21 08/02/21 Range/Units 17:05 16:57 14:37 WBC (4.8-10.8) K/uL RBC (4.2-5.4) M/uL Hgb (12.0-16.0) g/dL Hct (37-47) % MCV (80-100) fL MCH (25-34) pg MCHC (32-36) g/dL RDW Std Deviation (36.4-46.3) fL RDW Coeff of Griffin (11.5-14.5) % Plt Count (130-400) K/uL Neutrophils % (Manual) % Lymphocytes % (Manual) % Monocytes % (Manual) % Eosinophils % (Manual) % Basophils % (Manual) % Neutrophils # (Manual) (1.4-6.5) K/uL Total Absolute Neuts (1.4-6.5) K/uL Lymphocytes # (Manual) (1.2-3.4) K/uL Total Abs Lymphocytes (1.2-3.4) K/uL Monocytes # (Manual) (0.11-0.59) K/uL Eosinophils # (Manual) (0-0.5) K/uL Basophils # (Manual) (0-0.2) K/uL Hypogranular Neuts Platelet Estimate (Normal) Anisocytosis Ovalocytes Sodium 132 L (136-145) mmol/L Potassium 3.1 L (3.5-5.1) mmol/L Chloride 98 (98-107) mmol/L Carbon Dioxide 27 (21-32) mmol/L Anion Gap 7 (3-11) BUN 32 H (6-23) mg/dl Creatinine 1.50 H (0.6-1.2) mg/dl Est Cr Clr Drug Dosing 33.8 ml/min Est GFR ( Amer) 38.3 ml/min Est GFR (Non-Af Amer) 33.0 ml/min BUN/Creatinine Ratio 21.3 H (10-20) Glucose 192 H (70-99(Fasting)) mg/dl POC Glucose 215 H (70-99) mg/dl Estimat Average Glucose mg/dl Hemoglobin A1c (4.5-5.6) % Calcium 8.2 L (8.5-10.1) mg/dl Magnesium (1.7-2.4) mg/dl Total Bilirubin (0.2-1.0) mg/dl AST (13-39) U/L ALT (7-52) U/L Alkaline Phosphatase (34-104) U/L Troponin I 0.31 H* (0-0.04) ng/ml B-Natriuretic Peptide (0-100) pg/ml Total Protein (6.0-8.3) gm/dl Albumin (3.4-5.0) gm/dl Globulin (2.5-4.0) gm/dl Albumin/Globulin Ratio (0.9-2) Procalcitonin (0-0.5) ng/ml Nasal Screen MRSA (PCR) Negative (Negative) Digoxin (0.8-2.0) ng/ml SARS-CoV-2, RNA, NAAT (NEGATIVE) Blood Type Antibody Screen Crossmatch 08/02/21 08/02/21 08/02/21 Range/Units 12:31 12:26 12:11 WBC (4.8-10.8) K/uL RBC (4.2-5.4) M/uL Hgb (12.0-16.0) g/dL Hct (37-47) % MCV (80-100) fL MCH (25-34) pg MCHC (32-36) g/dL RDW Std Deviation (36.4-46.3) fL RDW Coeff of Griffin (11.5-14.5) % Plt Count (130-400) K/uL Neutrophils % (Manual) % Lymphocytes % (Manual) % Monocytes % (Manual) % Eosinophils % (Manual) % Basophils % (Manual) % Neutrophils # (Manual) (1.4-6.5) K/uL Total Absolute Neuts (1.4-6.5) K/uL Lymphocytes # (Manual) (1.2-3.4) K/uL Total Abs Lymphocytes (1.2-3.4) K/uL Monocytes # (Manual) (0.11-0.59) K/uL Eosinophils # (Manual) (0-0.5) K/uL Basophils # (Manual) (0-0.2) K/uL Hypogranular Neuts Platelet Estimate (Normal) Anisocytosis Ovalocytes Sodium (136-145) mmol/L Potassium (3.5-5.1) mmol/L Chloride (98-107) mmol/L Carbon Dioxide (21-32) mmol/L Anion Gap (3-11) BUN (6-23) mg/dl Creatinine (0.6-1.2) mg/dl Est Cr Clr Drug Dosing ml/min Est GFR ( Amer) ml/min Est GFR (Non-Af Amer) ml/min BUN/Creatinine Ratio (10-20) Glucose (70-99(Fasting)) mg/dl POC Glucose (70-99) mg/dl Estimat Average Glucose mg/dl Hemoglobin A1c (4.5-5.6) % Calcium (8.5-10.1) mg/dl Magnesium (1.7-2.4) mg/dl Total Bilirubin (0.2-1.0) mg/dl AST (13-39) U/L ALT (7-52) U/L Alkaline Phosphatase (34-104) U/L Troponin I (0-0.04) ng/ml B-Natriuretic Peptide (0-100) pg/ml Total Protein (6.0-8.3) gm/dl Albumin (3.4-5.0) gm/dl Globulin (2.5-4.0) gm/dl Albumin/Globulin Ratio (0.9-2) Procalcitonin 0.13 (0-0.5) ng/ml Nasal Screen MRSA (PCR) (Negative) Digoxin (0.8-2.0) ng/ml SARS-CoV-2, RNA, NAAT NEGATIVE (NEGATIVE) Blood Type O Positive Antibody Screen NEGATIVE Crossmatch See Detail PG Care Time/CCT Total # of Minutes Spent Total Time Spent with Patient: Total time spent is greater than 50% in coordination of care (as documented) at patient's floor/unit and/or counseling patient: [place] [address] Subseq Hosp Care Lvl 2 Patient Type Established Diagnoses Chest pain R07.9 SOB (shortness of breath) R06.02 Elevated troponin I level R77.8 Pneumonia J18.9 Atrial fibrillation I48.91 Atrial fibrillation type: unspecified Myelodysplastic syndrome with 5 q minus D46.C Diabetes E11.9; Z79.4 Diabetes mellitus complication status: without complication Diabetes mellitus intermodal customer service insulin use: with detention use Diabetes mellitus type: type 2 Hypertension I10 Hypertension type: essential hypertension Lumbar spinal stenosis M48.061 Elevated bilirubin R17 Rheumatoid arthritis M06.9 (1) Diabetes Diabetes mellitus complication status: without complication Diabetes mellitus detention insulin use: with intermodal customer service use Diabetes mellitus type: type 2 Qualified Code(s): E11.9 - Type 2 diabetes mellitus without complications; Z79.4 - long term acute care registered nurse (current) use of insulin (2) Atrial fibrillation Atrial fibrillation type: unspecified Qualified Code(s): I48.91 - Unspecified atrial fibrillation (3) Hypertension Hypertension type: essential hypertension Qualified Code(s): I10 - Essential (primary) hypertension
[2021-08-04] MEDS ORDERED: traMADol HCL 50 MG TABLET PO STA (01:57)
[2021-08-04 06:22] LABS: Mean Corpuscular Hgb Conc 33.9 g/dL (32-36)
[2021-08-04 06:38] LABS: Hematocrit (blood only) 24.8 % (37-47); Hemoglobin 8.4 g/dL (12.0-16.0); Mean Corpuscular Hemoglobin 32.1 pg (25-34); Mean Corpuscular Volume 94.7 fL (80-100); RDW Coefficient of Variation 21.7 % (11.5-14.5); RDW Standard Deviation 67.8 fL (36.4-46.3); Red Blood Count 2.62 M/uL (4.2-5.4); White Blood Count 3.82 K/uL (4.8-10.8)
[2021-08-04 06:43] LABS: Albumin Globulin Ratio 1.4 (0.9-2); Albumin Level 3.4 gm/dl (3.4-5.0); BUN Creatinine Ratio 27.8 (10-20); Bilirubin,Total 3.3 mg/dl (0.2-1.0); Calcium 8.3 mg/dl (8.5-10.1); Creatinine Clr Calc Pharmacy 30.8 ml/min; Est GFR (African American) 34.9 ml/min; Est GFR (Non-African American) 30.1 ml/min; Globulin 2.4 gm/dl (2.5-4.0); Potassium 3.3 mmol/L (3.5-5.1); Total Protein 5.8 gm/dl (6.0-8.3)
[2021-08-04 06:48] LABS: Platelet Count 33 K/uL (130-400); Platelet Estimate Decreased (Normal)
--- NOTE | 2021-08-04 07:36 | Hospitalist Progress Note ---
Date of Service August 04, 2021 Assessment & Plan (1) Chest pain: Plan: - Presented on 08/03 with acute chest pain likely related to worsening cough with pleuritic nature. - Initial troponin peaked 0.45. Cardiology consult does not feel this is ACS - Continue home meds, including Diltiazem, Atorvastatin, Metoprolol, Digoxin and Xarelto. - Cardiology consulted, appreciate their input. EKG changes likely related to digoxin along with demand ischemia from infection and anemia. - ECHO shows preserved ejection fraction dilated RV with normal RV function [place] artery pressures elevated to 55-60 grade II diastolic dysfunction no regional wall motion abnormalities Cardiology is no plans to have further risk stratification or intervention commend maximize medical therapy including diuresis (2) SOB (shortness of breath): Plan: - Related to heart failure preserved ejection fraction acute exacerbation, plus moderate pulmonary hypertension -BNP level elevated at 514. - On Bumex 4 mg IV BID; still with significant peripheral edema watch for renal dysfunction continue diuresis - On antibiotic coverage with Cefepime/Azithromycin for coverage of PNA. Procalcitonin level was 0.13. Some mild sputum production on 08/04/2021 - Likelihood of PE is very low, as patient is anticoagulated with Xarelto 15 mg PO daily. - Currently stable on room air. (3) Elevated troponin I level: Plan: - Likely related to demand ischemia in setting of MDS induced anemia + infection. (4) Pneumonia: Plan: - CXR showed right greater than sign left basilar consolidation suggestive of atelectasis VS pneumonia. Cardiomegaly with pulmonary edema also noted as well as small to moderate right and trace left pleural effusions. - On Cefepime IV along with PO Azithromycin for empiric coverage. (5) Atrial fibrillation: Plan: Rate controlled with meds including digoxin (converting to QOD dosing due to elevated level of 1.7), diltiazem 240 mg daily, and metoprolol 50 mg daily. -Continue Xarelto - will continue med despite chronic thrombocytopenia with plt count <50K. Consider holding if plt <30K in the future. (6) Myelodysplastic syndrome with 5 q minus: Plan: - Continue Revlimid 2.5 mg PO daily. - Follows with CCP for management; she receives Retacrit 40,000 units weekly with next dose due on 08/07/21. - Transfuse for Hgb <9 gm/dL (in setting of cardiac disease) along with plt <10K or active bleeding. - Will require outpatient hematology follow up after hospital discharge. (7) Diabetes: Plan: - Home dosing NovoLog 7030 mix 85 units every morning, 45 units every afternoon. - Pharmacy consulted for glycemic management. - Updated Hgb A1C level of 6.7, will need to follow with PCP for management. (8) Hypertension: Plan: - Continue home Diltiazem, Metoprolol as prescribed. - Also receiving Bumex 4 mg IV BID, monitor BP closely. (9) Lumbar spinal stenosis: Plan: - Baseline mobility with walker. (10) Elevated bilirubin: Plan: - Total lola increased to 2.6 in the ER, now improved to 2.3. - LFTs otherwise normal, no jaundice, no abdominal complaints. (11) Rheumatoid arthritis: Plan: - Patient on prednisone 5 mg daily, will continue this. - Consider stress dose Hydrocortisone if necessary. Plan: DVT ppx: Xarelto 15 mg PO daily (hold if plt <30K). FULL CODe Dispo: Discharge pending improvement in resp symptoms. Admission and Anticipated Discharge Date Admission Date: August 02, 2021 Subjective Patient said resolution of her chest discomfort with tramadol. She has cough productive of some yellow sputum which is scant. She has significant lower extremity swelling. She states her lower extremity swelling is worse than usual when at home. She still feels short of breath at baseline Review of Systems Review of Systems: Mild distress and fatigue no headache, no visual changes no speech or swallowing issues resolution of chest pain, pressure or palpitations no shortness of breath at rest but FUENTES productive cough no abdominal pain, nausea or vomiting, diarrhea or constipation no dysuria, hematuria or frequency no focal joint pain significant le swelling no back pain, CVA tenderness or radicular pain no bruising, bleeding or rashes no focal signs of weakness or numbness or altered sensation no complaints of anxiety or depression.. Physical Exam Physical Exam: The patient appeared well nourished and normally developed. Vital signs as documented. Head exam is normocephalic atraumatic Neck is without JVD, thyromegaly, or carotid bruits. Lungs are clear to auscultation, no focal loss of breath sounds Cardiac exam, Rhythm is regular.. No murmurs, rubs or gallops. Abdominal exam reveals normal bowel sounds, soft non tender, no masses Extremities are nonedematous and both pedal pulses are present Neurologic exam is alert and oriented, no focal loss of strength or sensation Skin is without bruises or rashes Psychologically is without concerns for anxiety or depression.. Results & Data Results & Data ([facility]) Vital Signs (Past 12 Hours) Vital Signs Temp Pulse Pulse Resp BP Pulse Ox 08/04/21 07:01 99.5 F 81 18 137/67 95 08/04/21 03:04 98.6 F 84 18 133/55 L 94 08/03/21 23:49 68 08/03/21 22:41 99.0 F 80 18 144/67 H 98 PG Care Time/CCT Total # of Minutes Spent Total Time Spent with Patient: Total time spent is greater than 50% in coordination of care (as documented) at patient's floor/unit and/or counseling patient: Coding Level of Care Code 97803 Subseq Hosp Care Lvl 3 Diagnoses Chest pain R07.9 SOB (shortness of breath) R06.02 Elevated troponin I level R77.8 Pneumonia J18.9 Atrial fibrillation I48.91 Atrial fibrillation type: unspecified Myelodysplastic syndrome with 5 q minus D46.C Diabetes E11.9; Z79.4 Diabetes mellitus complication status: without complication Diabetes mellitus mcc insulin use: with 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 Diabetes mellitus type: type 2 Hypertension I10 Hypertension type: essential hypertension Lumbar spinal stenosis M48.061 Elevated bilirubin R17 Rheumatoid arthritis M06.9 (1) Diabetes Diabetes mellitus complication status: without complication Diabetes mellitus mcc insulin use: with mcc use Diabetes mellitus type: type 2 Qualified Code(s): E11.9 - Type 2 diabetes mellitus without complications; Z79.4 - long-term (current) use of insulin (2) Atrial fibrillation Atrial fibrillation type: unspecified Qualified Code(s): I48.91 - Unspecified atrial fibrillation (3) Hypertension Hypertension type: essential hypertension Qualified Code(s): I10 - Essential (primary) hypertension
[2021-08-04] MEDS: traMADol HCL 50 MG TABLET PO PRN ×2 (07:40→15:26)
[2021-08-04] MEDS: CEFEPIME 2,000 MG in SYRINGE 0 ML IV SCH ×2 (07:44→19:39)
[2021-08-04] MEDS: BUMETANIDE 4 MG in SYRINGE 0 ML IV SCH ×2 (07:44→17:08)
[2021-08-04] MEDS: POTASSIUM CITRATE 10 MEQ TAB PO SCH ×3 (07:44→19:40)
[2021-08-04] MEDS: predniSONE 5 MG TAB PO SCH (07:45)
[2021-08-04] MEDS: ATORVASTATIN 20 MG TAB PO SCH (07:45)
[2021-08-04] MEDS: ESCITALOPRAM OXALATE 10 MG TAB PO SCH (07:45)
[2021-08-04] MEDS: AZITHROMYCIN 250 MG TAB PO SCH (07:45)
[2021-08-04] MEDS: LORATADINE 10 MG TAB PO SCH (07:45)
[2021-08-04] MEDS: PANTOprazole 40 MG TAB PO SCH (07:45)
[2021-08-04] MEDS: METOPROLOL TARTRATE 50 MG TAB PO SCH (07:45)
[2021-08-04] MEDS: allopurinoL 300 MG TAB PO SCH (07:45)
[2021-08-04] MEDS: dilTIAZem HCL 240 MG CAPCR PO SCH (07:45)
[2021-08-04] MEDS: RIVAROXABAN 15 MG TAB PO SCH (07:46)
[2021-08-04] MEDS: INSULIN HUMAN NPH SC SCH ×2 (08:18→17:10)
[2021-08-04] MEDS: INSULIN ASPART PER UNIT SC SCH ×4 (08:19→20:29)
[2021-08-04] MEDS: POTASSIUM CHLORIDE CRTAB 20 MEQ TABCR PO SCH ×2 (08:19→19:40)
[2021-08-04] MEDS: LENALIDOMIDE 2.5 MG PO SCH (11:40)
--- NOTE | 2021-08-04 11:59 | Cardiology Progress Note ---
Date of Service August 04, 2021 Assessment & Plan Admission and Anticipated Discharge Date Admission Date: August 02, 2021 Subjective Patient looks and feels better today. She notes after receiving tramadol last night her chest discomfort is completely resolved. She does have some yellow sputum production this morning. Her color looks better. She is not short of breath talking in sentences. And she is less short of breath lying flat. She has a light his dizziness presyncope syncope. She notes she feels better after her blood transfusion noting that she is less tired. Her lower extremity edema persists and is really unchanged. She denies any shortness of breath talking in sentences. She denied any chest discomfort while taking a deep breath for me. Results & Data ([facility]) Vital Signs (Past 12 Hours) Vital Signs Temp Pulse Pulse Resp BP Pulse Ox 08/04/21 07:36 93 H 08/04/21 07:01 37.5 C 81 18 137/67 95 08/04/21 03:04 37.0 C 84 18 133/55 L 94 awake alert oriented x3. HEENT 2+ carotid upstrokes Lungs: Clear to auscultation bilaterally decreased breath sounds in the bases Heart: Irregular rate and rhythm no appreciable murmurs Abdomen: Soft obese nontender nondistended Extremities: Moderate pitting edema to the mid tibia bilaterally slightly worse on the left compared to the right Psychiatric: Her affect appeared appropriate Her echocardiogram was reviewed: She has normal LV function with normal wall motion with type II diastolic dysfunction; moderate tricuspid regurgitation with moderate to severe pulmonary hypertension; normal RV function IMPRESSIONS: (1) Atrial fibrillation: (2) Hypertension: (3) Elevated troponin I level: Suspected demand ischemia (4) Concern for right sided pneumonia:antibiotics started (5) Chronic steroid use: (6) Myelodysplastic syndrome (7) CKD (8) moderate to severe pulmonary hypertension Her renal function is stable. Even with a blood transfusion yesterday receiving 2 units she was -2 L. I would replete her potassium. For now I would continue with her Bumex understanding tomorrow she may be slightly more prerenal and we need to back off on her Bumex dosing. She has significant pulmonary hypertension this is likely multifactorial and exacerbated by her anemia. Her heart rates seem to be well controlled with atrial fibrillation. I did discuss with nursing she should be wearing compression stockings given her legs are dependent throughout the day. Her dig level was elevated at 1.7. I reduced her dig to every other day in order to avoid dig toxicity with her chronic kidney disease. Dr. Lyn will return tomorrow to continue her care
[2021-08-04] MEDS: SODIUM CHLORIDE 0.65% NA SOLN 45 ML (OCEAN) PRN (17:07)
[2021-08-05] MEDS ORDERED: MELATONIN 3 MG TAB PO PRN (03:27)
[2021-08-05 06:40] LABS: Albumin Globulin Ratio 1.2 (0.9-2); Albumin Level 3.4 gm/dl (3.4-5.0); Bilirubin,Total 2.1 mg/dl (0.2-1.0); Calcium 8.7 mg/dl (8.5-10.1); Est GFR (African American) 28.4 ml/min; Est GFR (Non-African American) 24.5 ml/min; Globulin 2.9 gm/dl (2.5-4.0); Magnesium 2.1 mg/dl (1.7-2.4); Potassium 3.7 mmol/L (3.5-5.1); Total Protein 6.3 gm/dl (6.0-8.3)
[2021-08-05] MEDS: INSULIN ASPART PER UNIT SC SCH ×4 (08:36→20:56)
[2021-08-05] MEDS: INSULIN HUMAN NPH SC SCH ×2 (08:37→17:28)
[2021-08-05] MEDS: POLYETHYLENE (MIRALAX) 17 GM PACK PO PRN (08:55)
[2021-08-05] MEDS: CEFEPIME 2,000 MG in SYRINGE 0 ML IV SCH (08:56)
[2021-08-05] MEDS: RIVAROXABAN 15 MG TAB PO SCH (08:58)
[2021-08-05] MEDS: PANTOprazole 40 MG TAB PO SCH (08:58)
[2021-08-05] MEDS: POTASSIUM CITRATE 10 MEQ TAB PO SCH ×3 (08:58→20:02)
[2021-08-05] MEDS: allopurinoL 300 MG TAB PO SCH (08:58)
[2021-08-05] MEDS: predniSONE 5 MG TAB PO SCH (08:58)
[2021-08-05] MEDS: METOPROLOL TARTRATE 50 MG TAB PO SCH (08:58)
[2021-08-05] MEDS: LENALIDOMIDE 2.5 MG PO SCH (08:58)
[2021-08-05] MEDS: dilTIAZem HCL 240 MG CAPCR PO SCH (08:59)
[2021-08-05] MEDS: LORATADINE 10 MG TAB PO SCH (08:59)
[2021-08-05] MEDS: AZITHROMYCIN 250 MG TAB PO SCH (08:59)
[2021-08-05] MEDS: ATORVASTATIN 20 MG TAB PO SCH (08:59)
[2021-08-05] MEDS: ESCITALOPRAM OXALATE 10 MG TAB PO SCH (08:59)
[2021-08-05] MEDS: traMADol HCL 50 MG TABLET PO PRN (09:02)
--- NOTE | 2021-08-05 09:06 | Pharmacy Report ---
Pharmacy Glycemic Short Note 2 - Date of Service August 05, 2021 - Glycemic Short BSG Results (Last 24 hours): 08/04/21 08/04/21 08/04/21 09:34 11:30 16:31 Glucose POC Glucose 229 H 160 H 131 H 08/04/21 08/05/21 08/05/21 20:13 06:08 07:43 Glucose 94 POC Glucose 94 114 H OUTPATIENT ANTIDIABETIC REGIMEN: * Novolog 70/30 * 85 units SC qAM * 45 units SC qPM * HbA1c: 6.7% (08/03/21) ASSESSMENT: 08/05 * Patient received total of 93 units of insulin yesterday, of which 60 units were NPH * BSGs improving more yesterday, however trending down quickly at HS time, may scale back on NPH dose at dinner today PLAN FOR INPATIENT GLYCEMIC CONTROL: * Hold 70/30 insulin while inpatient * Basal insulin * NPH 30 units Qam * NPH 25 units with dinner - decreased * Bolus insulin * NovoLog per scale ACHS or Q6hrs while NPO * Goal Range: Low 110 mg/dL - High 140 mg/dL * Correction Factor: 20 mg/dL/unit * Nutritional / Prandial insulin per carb ratio of 1 unit per 6 grams CHO consumed PLAN FOR DISCHARGE: * HbA1c of 6.7% is at goal for patient, reasonable to discharge with current outpatient regimen provided patient is not experiencing hypoglycemia as an outpatient
[2021-08-05] MEDS: POTASSIUM CHLORIDE CRTAB 20 MEQ TABCR PO SCH (09:08)
[2021-08-05] MEDS: BUMETANIDE 4 MG in SYRINGE 0 ML IV SCH (09:54)
--- NOTE | 2021-08-05 09:54 | Cardiology Progress Note ---
Date of Service August 05, 2021 Assessment & Plan (1) Atrial fibrillation: (2) SOB (shortness of breath): (3) Chest pain: (4) Elevated troponin I level: (5) Valvular heart disease: Plan: 1. Atrial fibrillation: She appears have good rate control on diltiazem an [id number] dosing of digoxin. On systemic anticoagulation at reduced dose based on her degree of renal dysfunction. 2. Elevated troponin: No evidence of acute coronary syndrome. 3. Dyspnea: She appeared fairly comfortable at rest. Her lung examination seem benign. She has affected a significant diuresis since admission. Creatinine and BUN rising slightly. I think this continues to rise we will need to reduce her dose of intravenous diuretic or switch her back to her usual oral dose of bumetanide. 4. Chest pain: This appears to be musculoskeletal in nature. Some of her fatigue and somnolence may be related to tramadol use. 5. Edema: Probably due to an element of venous insufficiency and pulmonary hypertension with known dilation of the right ventricle. This is not appear to have improved even with significant diuresis. Compression stockings have been ordered. Maintaining good elevation of the legs will also help. 6. Valvular heart disease: She has an element of mitral and aortic insufficiency that is not severe. Admission and Anticipated Discharge Date Admission Date: August 02, 2021 Subjective This morning the patient's main complaint is fatigue and sleepiness. She states she is quite tired in even fell asleep while eating breakfast. She has not report significant shortness of breath at rest. She has not feel that her condition is improved much since admission. She continues to have an element of left sided chest discomfort. She did not report ambulation yesterday. Review of Systems Review of Systems: Per HPI Physical Exam Physical Exam: She is alert and oriented x3. Mood affect appear normal. She answered all questions appropriately. HEENT: Sclerae are anicteric. Pupils are equal and reactive to light and accommodation. Extraocular movements were intact. Neuro: Cranial nerves intact Lungs: Lungs are clear to auscultation bilaterally. There are no rales wheezes or rhonchi. She has normal respiratory effort without use of accessory muscles. There is normal pulmonary excursion. Cardiac: The rhythm was irregular. S1 and S2 were normal. Holosystolic murmur. The PMI was not markedly displaced on palpation. Extremities: Patient has bilateral radial pulses that are equal in intensity. There is no evidence cyanosis or clubbing. There was no evidence of significant peripheral edema bilaterally. Skin: There are no rashes noted on examination today. Multiple large ecchymoses Results & Data ([facility]) Vital Signs (Past 12 Hours) Vital Signs Temp Pulse Pulse Resp BP Pulse Ox 08/05/21 07:51 36.8 C 78 20 114/61 97 08/05/21 07:21 95 H 08/05/21 03:54 36.6 C 85 18 93/50 L 92 08/05/21 01:20 78 08/04/21 23:12 36.6 C 83 18 114/63 95 Laboratory Results Abnormal Lab Results 08/04/21 08/04/21 08/04/21 11:30 16:31 20:13 Sodium Potassium Chloride Carbon Dioxide Anion Gap BUN Creatinine Est Cr Clr Drug Dosing Est GFR ( Amer) Est GFR (Non-Af Amer) BUN/Creatinine Ratio Glucose POC Glucose 160 H 131 H 94 Calcium Magnesium Total Bilirubin AST ALT Alkaline Phosphatase Total Protein Albumin Globulin Albumin/Globulin Ratio 08/05/21 08/05/21 06:08 07:43 Sodium 133 L Potassium 3.7 Chloride 97 L Carbon Dioxide 27 Anion Gap 9 BUN 48 H Creatinine 1.92 H D Est Cr Clr Drug Dosing 26.0 Est GFR ( Amer) 28.4 Est GFR (Non-Af Amer) 24.5 BUN/Creatinine Ratio 25.0 H Glucose 94 POC Glucose 114 H Calcium 8.7 Magnesium 2.1 Total Bilirubin 2.1 H AST 10 L ALT 13 Alkaline Phosphatase 65 Total Protein 6.3 Albumin 3.4 Globulin 2.9 Albumin/Globulin Ratio 1.2 Diagnostic Findings Echocardiogram obtained 08/04/2021: Normal LV systolic function with ejection fraction of 60 65%. Dilated right ventricle with normal systolic function. Biatrial dilation. Mild aortic regurgitation. Mild to moderate mitral regurgitation. PA pressure estimated 55-60 mm of mercury stage II diastolic dysfunction PG Care Time/CCT Total # of Minutes Spent Total Time Spent with Patient: Total time spent is greater than 50% in coordination of care (as documented) at patient's floor/unit and/or counseling patient: Coding Level of Care Code 58656 Subseq Hosp Care Lvl 2 Diagnoses Atrial fibrillation I48.91 Atrial fibrillation type: unspecified SOB (shortness of breath) R06.02 Chest pain R07.9 Elevated troponin I level R77.8 Valvular heart disease I38 (1) Atrial fibrillation Atrial fibrillation type: unspecified Qualified Code(s): I48.91 - Unspecified atrial fibrillation
--- NOTE | 2021-08-05 15:17 | CT Scan Report ---
CT SCAN OF THE CHEST WITHOUT IV CONTRAST CLINICAL HISTORY: Dyspnea. Left-sided pleuritic chest pain. COMPARISON STUDY: Chest x-ray dated 08/02/2021. Chest CT dated 07/03/2010. TECHNIQUE: CT scan of the thorax was performed from the thoracic inlet to the upper abdomen. Images are reviewed in the axial, sagittal, and coronal planes. IV contrast was not administered for this ex amination as per the referring clinician. A dose lowering technique was utilized adhering to the milli Tillman. The examination is degraded by motion artifact. CT DOSE: 470.84 mGycm FINDINGS: Thyroid: Enlarged and heterogeneous. Thoracic aorta: The thoracic aorta is normal in caliber and demonstrates standard 3-vessel arch anato my. Heart: The heart is enlarged and without pericardial effusion. The coronary arteries are densely calc ified. The pulmonary trunk is dilated, measuring 4.0 cm in transverse diameter. This suggests pulmona ry artery hypertension. Lungs and pleural spaces: There is a small to moderate right pleural effusion with right basilar cons olidation. Trace pleural effusion is seen in the left with associated atelectasis. The trachea and ce ntral airways are clear. Intralobular septal thickening is noted. Mediastinum: Mildly enlarged mediastinal nodes measure up to 12 mm in short axis. Kathy: Not well assessed without IV contrast. Axillae: There is no axillary lymphadenopathy. Upper abdomen: Partially visualized upper abdominal viscera is within normal limits. Skeletal structures: The skeletal structures are heterogeneously osteopenic. No lytic or blastic bony lesions are seen. Degenerative change and mild hyperkyphosis is noted in the thoracic spine. IMPRESSION: 1. Cardiomegaly with evidence of pulmonary artery hypertension. Intralobular septal thickening can be seen with acute versus chronic congestive change and clinical correlation will be required. 2. Small to moderate right pleural effusion with associated right basilar consolidation. This could r epresent atelectasis and/or pneumonia. Clinical correlation will be required and radiographic follow- up to resolution is recommended. 3. Trace left pleural effusion. 4. Additional findings as above. ACT 112: Negative or not required by law. Electronically signed by: Ritesh Hirsch M.D. 08/05/2021 3:16 PM
--- NOTE | 2021-08-05 15:39 | Hospitalist Progress Note ---
Date of Service August 05, 2021 Assessment & Plan (1) Chest pain: Plan: - Presented on 08/03 with acute chest pain likely related to worsening cough with pleuritic nature. - Initial troponin peaked 0.45. Cardiology consult does not feel this is ACS - Continue home meds, including Diltiazem, Atorvastatin, Metoprolol, Digoxin and Xarelto. - Cardiology consulted, appreciate their input. EKG changes likely related to digoxin along with demand ischemia from infection and anemia. - ECHO shows preserved ejection fraction dilated RV with normal RV function [place] artery pressures elevated to 55-60 grade II diastolic dysfunction no regional wall motion abnormalities Cardiology is no plans to have further risk stratification or intervention commend maximize medical therapy including diuresis chest pain continues and is more musculoskeletal Ct chest is not revealing, except for effusion and possible pneumonia contralateral to pain, will try pain control (2) SOB (shortness of breath): Plan: - Related to heart failure preserved ejection fraction acute exacerbation, plus moderate pulmonary hypertension -BNP level elevated at 514. - Decreased Bumex due to ALIX to once a day will follow - On antibiotic coverage with Cefepime/Azithromycin for coverage of PNA. Procalcitonin level was 0.13. Some mild sputum production on 08/04/2021 - Likelihood of PE is very low, as patient is anticoagulated with Xarelto 15 mg PO daily. - Currently stable on room air. (3) Elevated troponin I level: Plan: - Likely related to demand ischemia in setting of MDS induced anemia + infection. consider demand ischemia (4) Pneumonia: Plan: - CXR showed right greater than sign left basilar consolidation suggestive of atelectasis VS pneumonia. Cardiomegaly with pulmonary edema also noted as well as small to moderate right and trace left pleural effusions. - On Cefepime IV along with PO Azithromycin for empiric coverage. (5) Atrial fibrillation: Plan: Rate controlled with meds including digoxin (converting to QOD dosing due to elevated level of 1.7), diltiazem 240 mg daily, and metoprolol 50 mg daily. -Continue Xarelto - will continue med despite chronic thrombocytopenia with plt count <50K. Consider holding if plt <30K in the future. (6) Myelodysplastic syndrome with 5 q minus: Plan: - Continue Revlimid 2.5 mg PO daily. - Follows with CCP for management; she receives Retacrit 40,000 units weekly with next dose due on 08/07/21. - Transfuse for Hgb <9 gm/dL (in setting of cardiac disease) along with plt <10K or active bleeding. - Will require outpatient hematology follow up after hospital discharge. (7) Diabetes: Plan: - Home dosing NovoLog 7030 mix 85 units every morning, 45 units every afternoon. - Pharmacy consulted for glycemic management. - Updated Hgb A1C level of 6.7, will need to follow with PCP for management. (8) Hypertension: Plan: - Continue home Diltiazem, Metoprolol as prescribed. - Also receiving Bumex 4 mg IV Daily, monitor BP closely. (9) Lumbar spinal stenosis: Plan: - Baseline mobility with walker. (10) Elevated bilirubin: Plan: - Total lola increased to 2.6 in the ER, now improved to 2.3. - LFTs otherwise normal, no jaundice, no abdominal complaints. clinical pain is left sided (11) Rheumatoid arthritis: Plan: - Patient on prednisone 5 mg daily, will continue this. - Consider stress dose Hydrocortisone if necessary. Plan: DVT ppx: Xarelto 15 mg PO daily (hold if plt <30K). FULL CODe Dispo: Discharge pending improvement in resp symptoms. Admission and Anticipated Discharge Date Admission Date: August 02, 2021 Subjective This morning the patient's main complaint is she states she has some chest pain that has a pleuritic and positional. She has not report significant shortness of breath at rest. She has not feel that her condition is improved much since admission. She continues to complain of Le edema but did have ALIX due to diuresis Review of Systems Review of Systems: Mild distress and fatigue no headache, no visual changes no speech or swallowing issues positional chest pain, no sensation of pressure or palpitations no shortness of breath at rest but FUENTES, Cp worsened by inspiration productive cough lessening no abdominal pain, nausea or vomiting, diarrhea or constipation no dysuria, hematuria or frequency no focal joint pain significant le swelling continues does not have TEDS on no back pain, CVA tenderness or radicular pain no bruising, bleeding or rashes no focal signs of weakness or numbness or altered sensation no complaints of anxiety or depression.. Physical Exam Physical Exam: The patient appeared well nourished and normally developed. Vital signs as documented. Head exam is normocephalic atraumatic Neck is without JVD, thyromegaly, or carotid bruits. Lungs are clear to auscultation, diminished at the bases R>L Cardiac exam, Rhythm is regular.. No murmurs, rubs or gallops. Abdominal exam reveals normal bowel sounds, soft non tender, no masses Extremities are 2+ edematous and both pedal pulses are present Neurologic exam is alert and oriented, no focal loss of strength or sensation Skin is with some changes of chronic venous stasis to LE Psychologically is without concerns for anxiety or depression.. Results & Data Results & Data ([facility]) Vital Signs (Past 12 Hours) Vital Signs Temp Pulse Pulse Resp BP Pulse Ox 08/05/21 15:28 63 08/05/21 15:12 98.8 F 63 20 97/58 L 90 08/05/21 10:55 97.9 F 76 20 124/65 95 08/05/21 07:51 98.2 F 78 20 114/61 97 08/05/21 07:21 95 H 08/05/21 03:54 97.9 F 85 18 93/50 L 92 PG Care Time/CCT Total # of Minutes Spent Total Time Spent with Patient: Total time spent is greater than 50% in coordination of care (as documented) at patient's floor/unit and/or counseling patient: Coding Level of Care Code 72043 Subseq Hosp Care Lvl 3 Diagnoses Chest pain R07.9 SOB (shortness of breath) R06.02 Elevated troponin I level R77.8 Pneumonia J18.9 Atrial fibrillation I48.91 Atrial fibrillation type: unspecified Myelodysplastic syndrome with 5 q minus D46.C Diabetes E11.9; Z79.4 Diabetes mellitus complication status: without complication 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 Diabetes mellitus type: type 2 Hypertension I10 Hypertension type: essential hypertension Lumbar spinal stenosis M48.061 Elevated bilirubin R17 Rheumatoid arthritis M06.9 (1) Diabetes Diabetes mellitus complication status: without complication Diabetes mellitus jail insulin use: with jail use Diabetes mellitus type: type 2 Qualified Code(s): E11.9 - Type 2 diabetes mellitus without complications; Z79.4 - long-term (current) use of insulin (2) Atrial fibrillation Atrial fibrillation type: unspecified Qualified Code(s): I48.91 - Unspecified atrial fibrillation (3) Hypertension Hypertension type: essential hypertension Qualified Code(s): I10 - Essential (primary) hypertension
[2021-08-05] MEDS: DIGOXIN 0.125 MG TAB PO SCH (17:17)
[2021-08-06] MEDS ORDERED: INSULIN HUMAN NPH SC SCH (08:00)
[2021-08-06 08:15] LABS: BUN Creatinine Ratio 25.4 (10-20); Calcium 8.3 mg/dl (8.5-10.1); Creatinine Clr Calc Pharmacy 24.9 ml/min; Est GFR (African American) 26.2 ml/min; Est GFR (Non-African American) 22.6 ml/min; Magnesium 2.1 mg/dl (1.7-2.4); Potassium 4.3 mmol/L (3.5-5.1)
[2021-08-06] MEDS: AZITHROMYCIN 250 MG TAB PO SCH (08:21)
[2021-08-06] MEDS: BUMETANIDE 4 MG in SYRINGE 0 ML IV SCH (08:21)
[2021-08-06] MEDS: allopurinoL 300 MG TAB PO SCH (08:21)
[2021-08-06] MEDS: PANTOprazole 40 MG TAB PO SCH (08:22)
[2021-08-06] MEDS: LORATADINE 10 MG TAB PO SCH (08:22)
[2021-08-06] MEDS: dilTIAZem HCL 240 MG CAPCR PO SCH (08:22)
[2021-08-06] MEDS: METOPROLOL TARTRATE 50 MG TAB PO SCH (08:23)
[2021-08-06] MEDS: RIVAROXABAN 15 MG TAB PO SCH (08:26)
[2021-08-06] MEDS: LENALIDOMIDE 2.5 MG PO SCH (08:26)
[2021-08-06] MEDS: ESCITALOPRAM OXALATE 10 MG TAB PO SCH (08:26)
[2021-08-06] MEDS: ATORVASTATIN 20 MG TAB PO SCH (08:27)
[2021-08-06] MEDS: SODIUM CHLORIDE 0.65% NA SOLN 45 ML (OCEAN) PRN (08:27)
[2021-08-06] MEDS: predniSONE 5 MG TAB PO SCH (08:27)
[2021-08-06] MEDS: POTASSIUM CITRATE 10 MEQ TAB PO SCH ×3 (08:28→19:57)
[2021-08-06] MEDS: INSULIN ASPART PER UNIT SC SCH ×4 (08:33→21:00)
[2021-08-06] MEDS: CEFEPIME 2,000 MG in SYRINGE 0 ML IV SCH (08:35)
--- NOTE | 2021-08-06 09:15 | Hospitalist Progress Note ---
Date of Service August 06, 2021 Assessment & Plan (1) Chest pain: Plan: - Presented on 08/03 with acute chest pain likely related to worsening cough with pleuritic nature. - Initial troponin peaked 0.45. Cardiology consult does not feel this is ACS - Continue home meds, including Diltiazem, Atorvastatin, Metoprolol, Digoxin and Xarelto. - Cardiology consulted, appreciate their input. EKG changes likely related to digoxin along with demand ischemia from infection and anemia. - ECHO shows preserved ejection fraction dilated RV with normal RV function [place] artery pressures elevated to 55-60 grade II diastolic dysfunction no regional wall motion abnormalities Cardiology is no plans to have further risk stratification or intervention commend maximize medical therapy including diuresis chest pain has resolved, Ct chest is not revealing, except for effusion and possible pneumonia contralateral to pain, will try pain control however with increased fatigue will have cardiology swing back around and determine if stress is needed (2) SOB (shortness of breath): Plan: - Related to heart failure preserved ejection fraction acute exacerbation, plus moderate pulmonary hypertension -BNP level elevated at 514. - Decreased Bumex due to ALIX to once a day reduced to 2mg and will follow - On antibiotic coverage with Cefepime/Azithromycin for coverage of PNA. Procalcitonin level was 0.13. Some mild sputum production on 08/04/2021 - Likelihood of PE is very low, as patient is anticoagulated with Xarelto 15 mg PO daily. - Currently stable on room air. (3) Elevated troponin I level: Plan: - Likely related to demand ischemia in setting of MDS induced anemia + infection. consider demand ischemia (4) Pneumonia: Plan: - CXR showed right greater than sign left basilar consolidation suggestive of atelectasis VS pneumonia. Cardiomegaly with pulmonary edema also noted as well as small to moderate right and trace left pleural effusions. - On Cefepime IV along with PO Azithromycin for empiric coverage. (5) Atrial fibrillation: Plan: Rate controlled with meds including digoxin (converting to QOD dosing due to elevated level of 1.7), diltiazem 240 mg daily, and metoprolol 50 mg daily. -Continue Xarelto - will continue med despite chronic thrombocytopenia with plt count <50K. Consider holding if plt <30K in the future. (6) Myelodysplastic syndrome with 5 q minus: Plan: - Continue Revlimid 2.5 mg PO daily. - Follows with CCP for management; she receives Retacrit 40,000 units weekly with next dose due on 08/07/21. - Transfuse for Hgb <9 gm/dL (in setting of cardiac disease) along with plt <10K or active bleeding. - Will require outpatient hematology follow up after hospital discharge. (7) Diabetes: Plan: - Home dosing NovoLog 7030 mix 85 units every morning, 45 units every afternoon. - Pharmacy consulted for glycemic management. - Updated Hgb A1C level of 6.7, will need to follow with PCP for management. (8) Hypertension: Plan: - Continue home Diltiazem, Metoprolol as prescribed. - Also receiving Bumex 2 mg IV Daily, monitor BP closely. (9) Lumbar spinal stenosis: Plan: - Baseline mobility with walker. (10) Elevated bilirubin: Plan: - Total lola increased to 2.6 in the ER, now improved to 2.3. - LFTs otherwise normal, no jaundice, no abdominal complaints. clinical pain is left sided (11) Rheumatoid arthritis: Plan: - Patient on prednisone 5 mg daily, will continue this. - Consider stress dose Hydrocortisone if necessary. (12) Chronic kidney disease, stage 4 (severe): Plan: DVT ppx: Xarelto 15 mg PO daily (hold if plt <30K). FULL CODe Dispo: Discharge pending improvement in resp symptoms. Admission and Anticipated Discharge Date Admission Date: August 02, 2021 Subjective Pt is still complaining of extreme fatigue, no chest pain, still with LE edema Review of Systems Review of Systems: Mild distress and fatigue no headache, no visual changes no speech or swallowing issues positional chest pain, no sensation of pressure or palpitations no shortness of breath at rest but FUENTES, Cp worsened by inspiration productive cough lessening no abdominal pain, nausea or vomiting, diarrhea or constipation no dysuria, hematuria or frequency no focal joint pain significant le swelling continues does not have TEDS on no back pain, CVA tenderness or radicular pain no bruising, bleeding or rashes no focal signs of weakness or numbness or altered sensation no complaints of anxiety or depression.. Physical Exam Physical Exam: The patient appeared well nourished and normally developed. Vital signs as documented. Head exam is normocephalic atraumatic Neck is without JVD, thyromegaly, or carotid bruits. Lungs are clear to auscultation, diminished at the bases R>L Cardiac exam, Rhythm is regular.. No murmurs, rubs or gallops. Abdominal exam reveals normal bowel sounds, soft non tender, no masses Extremities are 2+ edematous and both pedal pulses are present Neurologic exam is alert and oriented, no focal loss of strength or sensation Skin is with some changes of chronic venous stasis to LE Psychologically is without concerns for anxiety or depression.. Results & Data Results & Data ([facility]) Vital Signs (Past 12 Hours) Vital Signs Temp Pulse Pulse Resp BP Pulse Ox 08/06/21 07:12 97.9 F 68 20 105/66 95 08/06/21 07:07 69 08/06/21 03:14 98.6 F 71 18 102/61 93 08/05/21 23:44 97.9 F 72 18 95/56 L 93 08/05/21 22:18 80 PG Care Time/CCT Total # of Minutes Spent Total Time Spent with Patient: Total time spent is greater than 50% in coordination of care (as documented) at patient's floor/unit and/or counseling patient: Coding Level of Care Code 69712 Subseq Hosp Care Lvl 2 Diagnoses Chest pain R07.9 SOB (shortness of breath) R06.02 Elevated troponin I level R77.8 Pneumonia J18.9 Atrial fibrillation I48.91 Atrial fibrillation type: unspecified Myelodysplastic syndrome with 5 q minus D46.C Diabetes E11.9; Z79.4 Diabetes mellitus complication status: without complication 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 insulin use: with keno terminal operator use Diabetes mellitus type: type 2 Hypertension I10 Hypertension type: essential hypertension Lumbar spinal stenosis M48.061 Elevated bilirubin R17 Rheumatoid arthritis M06.9 Chronic kidney disease, stage 4 (severe) N18.4 (1) Diabetes Diabetes mellitus complication status: without complication Diabetes mellitus detention insulin use: with keno terminal operator use Diabetes mellitus type: type 2 Qualified Code(s): E11.9 - Type 2 diabetes mellitus without complications; Z79.4 - snf (current) use of insulin (2) Atrial fibrillation Atrial fibrillation type: unspecified Qualified Code(s): I48.91 - Unspecified atrial fibrillation (3) Hypertension Hypertension type: essential hypertension Qualified Code(s): I10 - Essential (primary) hypertension
[2021-08-06] MEDS: INSULIN HUMAN NPH SC SCH ×2 (10:32→17:31)
--- NOTE | 2021-08-06 11:49 | Pharmacy Report ---
Pharmacy Glycemic Short Note 2 - Date of Service August 06, 2021 - Glycemic Short BSG Results (Last 24 hours): 08/05/21 08/05/21 08/06/21 16:32 20:28 07:14 Glucose 83 POC Glucose 138 H 123 H 08/06/21 08/06/21 07:50 11:31 Glucose POC Glucose 92 100 H OUTPATIENT ANTIDIABETIC REGIMEN: * Novolog 70/30 * 85 units SC qAM * 45 units SC qPM * HbA1c: 6.7% (08/03/21) ASSESSMENT: 08/06/21 * Patient's BSGs yesterday were [phone] mg/dL. Patient received 67 units of insulin (60 units of basal and 7 units of bolus). * Fasting today is 92 mg/dL. * Fasting is trending downwards - [phone]- and today 92 mg/dL. Decrease morning NPH by 20%. For evening, have dosing range with reduction of 20% (25 units) or 40% (20 units) if BSG continues to trend downwards. * Continue loosened Novolog. 08/05 * Patient received total of 93 units of insulin yesterday, of which 60 units were NPH * BSGs improving more yesterday, however trending down quickly at HS time, may scale back on NPH dose at dinner today PLAN FOR INPATIENT GLYCEMIC CONTROL: * Hold 70/30 insulin while inpatient * Basal insulin * NPH 25 units Qam * NPH 20 units with dinner - decreased (25 units if BSG > 140 mg/dL) * Bolus insulin * NovoLog per scale ACHS or Q6hrs while NPO * Goal Range: Low 110 mg/dL - High 140 mg/dL * Correction Factor: 25 mg/dL/unit * Nutritional / Prandial insulin per carb ratio of 1 unit per 9 grams CHO consumed PLAN FOR DISCHARGE: * HbA1c of 6.7% is below goal of 7.5% for patient. * It is reasonable to continue home regimen as long as patient is not suffering from hypoglycemia at home. * If so, recommend reduction of 20%.
[2021-08-06] MEDS ORDERED: COUGH DROP (SUGAR FREE) LOZ 24 LOZ/1 BOX BUCCAL PRN (12:13)
[2021-08-06] MEDS ORDERED: COUGH DROP (SUGAR FREE) LOZ 24 LOZ/1 BOX BUCCAL ONE (12:20)
--- NOTE | 2021-08-06 17:05 | Cardiology Progress Note ---
Date of Service August 06, 2021 Assessment & Plan (1) Atrial fibrillation: (2) SOB (shortness of breath): (3) Chest pain: (4) Elevated troponin I level: (5) Valvular heart disease: Plan: 1. Atrial fibrillation: Adequate rate control. On appropriately dosed an ticoagulation. Continue current medication. No overt symptoms. Permanent. 2. Elevated troponin: No evidence of acute coronary syndrome. 3. Dyspnea: Improved. Likely multifactorial. She appears to have had an element of pulmonary vascular congestion which I believe is resolved. Her symptoms appear to have improved. Also contribution from an infectious etiology. 4. Chest pain: Resolved currently. Likely musculoskeletal. Possibly related to her pneumonia. 5. Edema: Improved by report. She still has a significant amount of lower extremity edema. Compression stockings were tried but did not have the desired result. She may benefit from an Unna boot or Matt wraps. Maintaining good elevation limiting sodium also help. 6. Valvular heart disease: She has an element of mitral and aortic insufficiency that is not severe. Her fatigue appears to have improved this afternoon. I suspect that a lot of her fatigue was related to tramadol use. If she can refrain from taking tramadol this evening I think we will have a better understanding of the relationship between her medication and fatigue in the morning. I do not believe she requires any additional coronary evaluation. I did not recommend a stress test. Her creatinine and BUN have risen suggesting an element of intravascular depletion. I think we will have to hold some diuretics for a day. Afterwards she can likely be returned to her usual outpatient oral dose of Bumex. I think we have affected the appropriate amount of diuresis given her presentation with pulmonary congestion. Lung examination is fairly benign now. I think her lower extremity edema will have to be treated with physical measures such as leg elevation, limiting sodium and likely Matt wraps for the time being. Admission and Anticipated Discharge Date Admission Date: August 02, 2021 Subjective This afternoon the patient claims to be feeling better but was concerned because she was very fatigued for most of the day. She did take a dose of tramadol this morning. She has not taken any this afternoon. Her chest pain appears to have resolved currently. Her breathing is better. She has been ambulatory with her wheeled walker. She continues to have lower extremity edema but feels this is also improved. Review of Systems Review of Systems: Per HPI Physical Exam Physical Exam: She is alert and oriented x3. Mood affect appear normal. She answered all questions appropriately. HEENT: Sclerae are anicteric. Pupils are equal and reactive to light and accommodation. Extraocular movements were intact. Neuro: Cranial nerves intact Lungs: Lungs are clear to auscultation bilaterally. There are no rales wheezes or rhonchi. She has normal respiratory effort without use of accessory muscles. There is normal pulmonary excursion. Cardiac: The rhythm was irregular. S1 and S2 were normal. Holosystolic murmur. The PMI was not markedly displaced on palpation. Extremities: Patient has bilateral radial pulses that are equal in intensity. There is no evidence cyanosis or clubbing. There was no evidence of significant peripheral edema bilaterally. Skin: There are no rashes noted on examination today. Multiple large ecchymoses Results & Data ([facility]) Vital Signs (Past 12 Hours) Vital Signs Temp Pulse Pulse Resp BP Pulse Ox 08/06/21 16:00 36.5 C 66 18 95/54 L 90 08/06/21 11:22 36.5 C 69 20 118/69 95 08/06/21 07:12 36.6 C 68 20 105/66 95 08/06/21 07:07 69 Laboratory Results Abnormal Lab Results 08/05/21 08/06/21 08/06/21 20:28 07:14 07:50 Sodium 129 L Potassium 4.3 Chloride 96 L Carbon Dioxide 28 Anion Gap 5 BUN 52 H Creatinine 2.05 H Est Cr Clr Drug Dosing 24.9 Est GFR ( Amer) 26.2 Est GFR (Non-Af Amer) 22.6 BUN/Creatinine Ratio 25.4 H Glucose 83 POC Glucose 123 H 92 Calcium 8.3 L Magnesium 2.1 08/06/21 08/06/21 11:31 16:14 Sodium Potassium Chloride Carbon Dioxide Anion Gap BUN Creatinine Est Cr Clr Drug Dosing Est GFR ( Amer) Est GFR (Non-Af Amer) BUN/Creatinine Ratio Glucose POC Glucose 100 H 143 H Calcium Magnesium Diagnostic Findings Echocardiogram obtained 08/04/2021: Normal LV systolic function with ejection fraction of 60 65%. Dilated right ventricle with normal systolic function. Biatrial dilation. Mild aortic regurgitation. Mild to moderate mitral regurg itation. PA pressure estimated 55-60 mm of mercury stage II diastolic dysfunction PG Care Time/CCT Total # of Minutes Spent Total Time Spent with Patient: Total time spent is greater than 50% in coordination of care (as documented) at patient's floor/unit and/or counseling patient: Coding Level of Care Code 06389 Subseq Hosp Care Lvl 2 Diagnoses Atrial fibrillation I48.91 Atrial fibrillation type: unspecified SOB (shortness of breath) R06.02 Chest pain R07.9 Elevated troponin I level R77.8 Valvular heart disease I38 (1) Atrial fibrillation Atrial fibrillation type: unspecified Qualified Code(s): I48.91 - Unspecified atrial fibrillation
--- NOTE | 2021-08-06 18:10 | Hospitalist Progress Note ---
Date of Service August 06, 2021 Assessment & Plan (1) Chest pain: Plan: - Presented on 08/03 with acute chest pain likely related to worsening cough with pleuritic nature. - Initial troponin peaked 0.45. Cardiology consult does not feel this is ACS - Continue home meds, including Diltiazem, Atorvastatin, Metoprolol, Digoxin and Xarelto. - Cardiology consulted, appreciate their input. EKG changes likely related to digoxin along with demand ischemia from infection and anemia. - ECHO shows preserved ejection fraction dilated RV with normal RV function Pulmonary artery pressures elevated to 55-60 grade II diastolic dysfunction no regional wall motion abnormalities Cardiology is no plans to have further risk stratification or intervention commend maximize medical therapy including diuresis chest pain has resolved, Ct chest is not revealing, except for effusion and possible pneumonia contralateral to pain, will try pain control however with increased fatigue did have cardiology re eval on 08/06 and no further testing is planned will have PT/Ot eval to see if able to go home, pt is walking to bathroom and may consider 2 step prior to dc (2) SOB (shortness of breath): Plan: - Related to heart failure preserved ejection fraction acute exacerbation, plus moderate pulmonary hypertension -BNP level elevated at 514. - Decreased Bumex due to ALIX , holding bumex on 08/07 until labs reviewed - On antibiotic coverage with Cefepime/Azithromycin for coverage of PNA. Procalcitonin level was 0.13. Some mild sputum production on 08/04/2021 - Likelihood of PE is very low, as patient is anticoagulated with Xarelto 15 mg PO daily. - Currently stable on room air. with former smoking history, hyper inflation suggested on CXR and pulmonary htn would consider outpt PFT to eval for COPD or other chronic hypoxic lung diseases (3) Elevated troponin I level: Plan: - Likely related to demand ischemia in setting of MDS induced anemia + infection. consider demand ischemia (4) Pneumonia: Plan: - CXR showed right greater than sign left basilar consolidation suggestive of atelectasis VS pneumonia. Cardiomegaly with pulmonary edema also noted as well as small to moderate right and trace left pleural effusions. - On Cefepime IV along with PO Azithromycin for empiric coverage. (5) Atrial fibrillation: Plan: Rate controlled with meds including digoxin (converting to QOD dosing due to elevated level of 1.7), diltiazem 240 mg daily, and metoprolol 50 mg daily. -Continue Xarelto - will continue med despite chronic thrombocytopenia with plt count <50K. Consider holding if plt <30K in the future. (6) Myelodysplastic syndrome with 5 q minus: Plan: - Continue Revlimid 2.5 mg PO daily. - Follows with CCP for management; she receives Retacrit 40,000 units weekly with next dose due on 08/07/21. - Transfuse for Hgb <9 gm/dL (in setting of cardiac disease) along with plt <10K or active bleeding. - Will require outpatient hematology follow up after hospital discharge. (7) Diabetes: Plan: - Home dosing NovoLog 7030 mix 85 units every morning, 45 units every afternoon. - Pharmacy consulted for glycemic management. - Updated Hgb A1C level of 6.7, will need to follow with PCP for management. (8) Hypertension: Plan: - Continue home Diltiazem, Metoprolol as prescribed. - Also receiving Bume on hold (9) Lumbar spinal stenosis: Plan: - Baseline mobility with walker. (10) Elevated bilirubin: Plan: - Total lola increased to 2.6 in the ER, now improved to 2.3. - LFTs otherwise normal, no jaundice, no abdominal complaints. clinical pain is left sided (11) Rheumatoid arthritis: Plan: - Patient on prednisone 5 mg daily, will continue this. - Consider stress dose Hydrocortisone if necessary. (12) Chronic kidney disease, stage 4 (severe): Plan: DVT ppx: Xarelto 15 mg PO daily (hold if plt <30K). FULL CODe Dispo: Discharge pending improvement in resp symptoms. Admission and Anticipated Discharge Date Admission Date: August 02, 2021 Results & Data Results & Data ([facility]) Vital Signs (Past 12 Hours) Vital Signs Temp Pulse Pulse Resp BP Pulse Ox 08/06/21 16:00 97.7 F 66 18 95/54 L 90 08/06/21 11:22 97.7 F 69 20 118/69 95 08/06/21 07:12 97.9 F 68 20 105/66 95 08/06/21 07:07 69 PG Care Time/CCT Total # of Minutes Spent Total Time Spent with Patient: Total time spent is greater than 50% in coordination of care (as documented) at patient's floor/unit and/or counseling patient: Coding Level of Care Code None Diagnoses Chest pain R07.9 SOB (shortness of breath) R06.02 Elevated troponin I level R77.8 Pneumonia J18.9 Atrial fibrillation I48.91 Atrial fibrillation type: unspecified Myelodysplastic syndrome with 5 q minus D46.C Diabetes E11.9; Z79.4 Diabetes mellitus type: type 2 Diabetes mellitus jail insulin use: with jail use Diabetes mellitus complication status: without complication Hypertension I10 Hypertension type: essential hypertension Lumbar spinal stenosis M48.061 Elevated bilirubin R17 Rheumatoid arthritis M06.9 Chronic kidney disease, stage 4 (severe) N18.4 (1) Atrial fibrillation Atrial fibrillation type: unspecified Qualified Code(s): I48.91 - Unspecified atrial fibrillation (2) Diabetes Diabetes mellitus type: type 2 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
[2021-08-07] MEDS: ACETAMINOPHEN 325 MG TAB PO PRN ×2 (00:41→21:37)
[2021-08-07] MEDS: CEFEPIME 2,000 MG in SYRINGE 0 ML IV SCH (07:46)
[2021-08-07] MEDS: dilTIAZem HCL 240 MG CAPCR PO SCH (07:52)
[2021-08-07] MEDS: ATORVASTATIN 20 MG TAB PO SCH (07:52)
[2021-08-07] MEDS: AZITHROMYCIN 250 MG TAB PO SCH (07:52)
[2021-08-07] MEDS: allopurinoL 300 MG TAB PO SCH (07:52)
[2021-08-07] MEDS: ESCITALOPRAM OXALATE 10 MG TAB PO SCH (07:53)
[2021-08-07] MEDS: predniSONE 5 MG TAB PO SCH (07:53)
[2021-08-07] MEDS: POTASSIUM CITRATE 10 MEQ TAB PO SCH ×3 (07:53→20:22)
[2021-08-07] MEDS: PANTOprazole 40 MG TAB PO SCH (07:53)
[2021-08-07] MEDS: METOPROLOL TARTRATE 50 MG TAB PO SCH (07:53)
[2021-08-07] MEDS: LORATADINE 10 MG TAB PO SCH (07:53)
[2021-08-07 07:57] LABS: BUN Creatinine Ratio 25.2 (10-20); Calcium 8.2 mg/dl (8.5-10.1); Creatinine Clr Calc Pharmacy 23.6 ml/min; Est GFR (African American) 24.9 ml/min; Est GFR (Non-African American) 21.5 ml/min; Magnesium 2.2 mg/dl (1.7-2.4); Potassium 4.2 mmol/L (3.5-5.1)
[2021-08-07] MEDS: INSULIN ASPART PER UNIT SC SCH ×4 (08:41→20:20)
[2021-08-07] MEDS: LENALIDOMIDE 2.5 MG PO SCH (08:42)
[2021-08-07] MEDS: INSULIN HUMAN NPH SC SCH ×2 (08:44→17:25)
[2021-08-07] MEDS ORDERED: BUMETANIDE 2 MG in SYRINGE 0 ML IV SCH (09:00)
[2021-08-07] MEDS: RIVAROXABAN 15 MG TAB PO SCH (11:20)
[2021-08-07] MEDS: POLYETHYLENE (MIRALAX) 17 GM PACK PO PRN (12:42)
[2021-08-07] MEDS: DIGOXIN 0.125 MG TAB PO SCH (16:11)
--- NOTE | 2021-08-07 16:41 | Cardiology Progress Note ---
Date of Service August 07, 2021 Assessment & Plan (1) Atrial fibrillation: (2) SOB (shortness of breath): (3) Chest pain: (4) Elevated troponin I level: (5) Valvular heart disease: Plan: 1. Atrial fibrillation: Adequate rate control. On appropriately dosed an ticoagulation. Continue current medication. No overt symptoms. Permanent. 2. Elevated troponin: No evidence of acute coronary syndrome. 3. Dyspnea: Improved. Likely multifactorial. She appears to have had an element of pulmonary vascular congestion which I believe is resolved. Her symptoms appear to have improved. Also contribution from an infectious etiology. 4. Chest pain: Resolved currently. Likely musculoskeletal. Possibly related to her pneumonia. 5. Edema: Improved by report. She still has a significant amount of lower extremity edema. Compression stockings were tried but did not have the desired result. She may benefit from an Unna boot or Matt wraps. Maintaining good elevation limiting sodium also help. 6. Valvular heart disease: She has an element of mitral and aortic insufficiency that is not severe. Her fatigue and somnolence appear to have resolved with discontinuation of tramadol. She may still have an element of intravascular depletion. I would consider holding her diuretics for another day. I think once re-initiated she could start at her usual outpatient oral regimen. Admission and Anticipated Discharge Date Admission Date: August 02, 2021 Subjective This afternoon the patient was somewhat anxious about staying in the hospital. She was somewhat frustrated with her ongoing medical condition and anxious to go home. She did not complain of fatigue today. She states she was ambulatory around her bed briefly. She did not report dizziness lightheadedness. Breathing appears to have improved slightly. She continues to have lower extremity edema that she also thinks is improved. Review of Systems Review of Systems: Per HPI Physical Exam Physical Exam: She is alert and oriented x3. Mood affect appear normal. She answered all questions appropriately. HEENT: Sclerae are anicteric. Pupils are equal and reactive to light and accommodation. Extraocular movements were intact. Neuro: Cranial nerves intact Lungs: Lungs are clear to auscultation bilaterally. There are no rales wheezes or rhonchi. She has normal respiratory effort without use of accessory muscles. There is normal pulmonary excursion. Cardiac: The rhythm was irregular. S1 and S2 were normal. Holosystolic murmur. The PMI was not markedly displaced on palpation. Extremities: Patient has bilateral radial pulses that are equal in intensity. There is no evidence cyanosis or clubbing. Moderate lower extremity edema Skin: There are no rashes noted on examination today. Multiple large ecchymoses Results & Data ([facility]) Vital Signs (Past 12 Hours) Vital Signs Temp Pulse Pulse Resp BP Pulse Ox 08/07/21 16:11 66 08/07/21 15:31 93 08/07/21 14:17 65 08/07/21 11:41 36.4 C L 63 18 105/58 L 96 08/07/21 07:46 36.5 C 80 18 109/58 L 92 08/07/21 07:45 85 102/52 L 08/07/21 06:17 62 Laboratory Results Abnormal Lab Results 08/06/21 08/07/21 08/07/21 20:16 06:58 07:53 Sodium 132 L Potassium 4.2 Chloride 97 L Carbon Dioxide 28 Anion Gap 7 BUN 54 H Creatinine 2.14 H Est Cr Clr Drug Dosing 23.6 Est GFR ( Amer) 24.9 Est GFR (Non-Af Amer) 21.5 BUN/Creatinine Ratio 25.2 H Glucose 73 POC Glucose 101 H 101 H Calcium 8.2 L Magnesium 2.2 08/07/21 11:28 Sodium Potassium Chloride Carbon Dioxide Anion Gap BUN Creatinine Est Cr Clr Drug Dosing Est GFR ( Amer) Est GFR (Non-Af Amer) BUN/Creatinine Ratio Glucose POC Glucose 158 H Calcium Magnesium PG Care Time/CCT Total # of Minutes Spent Total Time Spent with Patient: Total time spent is greater than 50% in coordination of care (as documented) at patient's floor/unit and/or counseling patient: Coding Level of Care Code 06441 Subseq Hosp Care Lvl 2 Diagnoses Atrial fibrillation I48.91 Atrial fibrillation type: unspecified SOB (shortness of breath) R06.02 Chest pain R07.9 Elevated troponin I level R77.8 Valvular heart disease I38 (1) Atrial fibrillation Atrial fibrillation type: unspecified Qualified Code(s): I48.91 - Unspecified atrial fibrillation
--- NOTE | 2021-08-07 18:29 | Hospitalist Progress Note ---
Date of Service August 07, 2021 Assessment & Plan (1) Pneumonia: Plan: -Is on Zithromax/cefepimecan downgrade cefepime to p.o. cefdinir. -Improving and on room air (2) Chest pain: Plan: -Pleuritic related to pneumonia. Does have mild elevation in troponinlikely demand ischemia from above and anemia (3) SOB (shortness of breath): (4) Elevated troponin I level: Plan: - Likely related to demand ischemia in setting of MDS induced anemia + infection. (5) Atrial fibrillation: Plan: Rate controlled, anticoagulated (6) Myelodysplastic syndrome with 5 q minus: Plan: - Continue Revlimid 2.5 mg PO daily. - Follows with CCP for management; she receives Retacrit 40,000 units weekly with next dose due on 08/07/21. - Transfuse for Hgb <9 gm/dL (in setting of cardiac disease) along with plt <10K or active bleeding. -Repeat CBC in the morning (7) Diabetes: Plan: -Pharmacy consult for glycemic management (8) Hypertension: Plan: -Blood pressure is reasonable continue to follow (9) Lumbar spinal stenosis: Plan: - Baseline mobility with walker. For rehab (10) Elevated bilirubin: Plan: Nonspecific, outpatient follow-up (11) Rheumatoid arthritis: Plan: -Continue home dosing (12) Chronic kidney disease, stage 4 (severe): Plan: Follow creatinine Plan: DVT ppx: Xarelto 15 mg PO daily (hold if plt <30K). FULL CODe Dispo: Anticipate rehab Admission and Anticipated Discharge Date Admission Date: August 02, 2021 Subjective Generally feeling better. Chest pain mostly resolved. Ongoing cough and congestion, feels weak and does not feel like she would be safe at homewould like to go to rehab Review of Systems Review of Systems: All systems reviewed & are unremarkable except as noted in HPI & below Physical Exam Physical Exam: In general she is awake and alert pleasant no distress. HEENT normocephalic atraumatic mucous membranes moist. Breathing unlabored no accessory muscle use good effort. Skin shows no rashes no pallor or icterus. Neuro without focal deficits. Results & Data Results & Data ([facility]) Vital Signs (Past 12 Hours) Vital Signs Temp Pulse Pulse Resp BP Pulse Ox 08/07/21 16:11 66 08/07/21 16:00 97.5 F L 79 20 127/56 L 93 08/07/21 15:31 93 08/07/21 14:17 65 08/07/21 11:41 97.5 F L 63 18 105/58 L 96 08/07/21 07:46 97.7 F 80 18 109/58 L 92 08/07/21 07:45 85 102/52 L PG Care Time/CCT Total # of Minutes Spent Total Time Spent with Patient: Total time spent is greater than 50% in coordination of care (as documented) at patient's floor/unit and/or counseling patient: Coding Level of Care Code 72497 Subseq Hosp Care Lvl 2 Diagnoses Chest pain R07.9 SOB (shortness of breath) R06.02 Elevated troponin I level R77.8 Pneumonia J18.9 Atrial fibrillation I48.91 Atrial fibrillation type: unspecified Myelodysplastic syndrome with 5 q minus D46.C Diabetes E11.9; Z79.4 Diabetes mellitus type: type 2 Diabetes mellitus jail insulin use: with terminal gauger supervisor use Diabetes mellitus complication status: without complication Hypertension I10 Hypertension type: essential hypertension Lumbar spinal stenosis M48.061 Elevated bilirubin R17 Rheumatoid arthritis M06.9 Chronic kidney disease, stage 4 (severe) N18.4 (1) Atrial fibrillation Atrial fibrillation type: unspecified Qualified Code(s): I48.91 - Unspecified atrial fibrillation (2) Diabetes Diabetes mellitus type: type 2 Diabetes mellitus terminal gauger supervisor insulin use: with terminal gauger supervisor use Diabetes mellitus complication status: without complication Qualified Code(s): E11.9 - Type 2 diabetes mellitus without complications; Z79.4 - group home (current) use of insulin (3) Hypertension Hypertension type: essential hypertension Qualified Code(s): I10 - Essential (primary) hypertension
[2021-08-07] MEDS ORDERED: CEFDINIR 300 MG CAP PO SCH (21:00)
[2021-08-08] MEDS: ACETAMINOPHEN 325 MG TAB PO PRN (04:51)
[2021-08-08 07:45] LABS: Hematocrit (blood only) 20.3 % (37-47); Hemoglobin 6.9 g/dL (12.0-16.0); Mean Corpuscular Hemoglobin 32.4 pg (25-34); Mean Corpuscular Volume 95.3 fL (80-100); RDW Coefficient of Variation 22.1 % (11.5-14.5); RDW Standard Deviation 70.5 fL (36.4-46.3); Red Blood Count 2.13 M/uL (4.2-5.4); White Blood Count 2.64 K/uL (4.8-10.8)
[2021-08-08 07:50] LABS: BUN Creatinine Ratio 25.1 (10-20); Calcium 8.2 mg/dl (8.5-10.1); Creatinine Clr Calc Pharmacy 24.5 ml/min; Est GFR (African American) 25.9 ml/min; Est GFR (Non-African American) 22.4 ml/min
[2021-08-08] MEDS ORDERED: SODIUM CHLORIDE 0.9% 250 ML IV PRN (07:52)
[2021-08-08] MEDS: METOPROLOL TARTRATE 50 MG TAB PO SCH (07:57)
[2021-08-08] MEDS: POTASSIUM CITRATE 10 MEQ TAB PO SCH ×2 (07:57→14:21)
[2021-08-08] MEDS: predniSONE 5 MG TAB PO SCH (07:57)
[2021-08-08] MEDS: allopurinoL 300 MG TAB PO SCH (07:57)
[2021-08-08] MEDS: AZITHROMYCIN 250 MG TAB PO SCH (07:58)
[2021-08-08] MEDS: LORATADINE 10 MG TAB PO SCH (07:58)
[2021-08-08] MEDS: dilTIAZem HCL 240 MG CAPCR PO SCH (07:58)
[2021-08-08] MEDS: ESCITALOPRAM OXALATE 10 MG TAB PO SCH (07:58)
[2021-08-08] MEDS: RIVAROXABAN 15 MG TAB PO SCH (07:58)
[2021-08-08] MEDS: ATORVASTATIN 20 MG TAB PO SCH (07:58)
[2021-08-08] MEDS: PANTOprazole 40 MG TAB PO SCH (07:58)
[2021-08-08] MEDS: LENALIDOMIDE 2.5 MG PO SCH (07:59)
[2021-08-08] MEDS: INSULIN ASPART PER UNIT SC SCH ×2 (08:05→12:52)
[2021-08-08] MEDS: INSULIN HUMAN NPH SC SCH (08:06)
[2021-08-08 08:09] LABS: Platelet Count 33 K/uL (130-400)
[2021-08-08 08:11] LABS: ALC (manual) 0.37 K/uL (1.2-3.4); ANC (manual) 1.28 K/uL (1.4-6.5); Anisocytosis Present; Basophils # (manual) 0.14 K/uL (0-0.2); Basophils % (manual) 5.3 %; Eosinophils # (manual) 0.25 K/uL (0-0.5); Eosinophils % (manual) 9.6 %; Giant Platelets 2+; Lymphocytes # (manual) 0.37 K/uL (1.2-3.4); Microcytosis Present; Monocytes % (manual) 22.8 %; Neutrophils # (manual) 1.28 K/uL (1.4-6.5); Neutrophils % (manual) 48.3 %; Platelet Estimate Decreased (Normal); Poikilocytosis Present
[2021-08-08] MEDS ORDERED: EPOETIN ALFA 40,000 UNITS/ML VIAL SQ ONE (12:00)
--- NOTE | 2021-08-08 19:51 | Discharge Summary ---
Date of Service August 08, 2021 Admission HPI Per Admitting Provider Patient is a 80-year-old female with a past medical history of A. fib with rate control, diabetes, hypertension, myelodysplastic syndrome with chronic pancytopenia who presents today with worsening cough and chest pain. Patient was hospitalized in April 2020 with COVID-19 infection, reports since then she has had a chronic dry cough. Over the past several days, it has become worse, more frequent and causing her shortness of breath both at rest and with activity. Has felt more congested, has chronic b/l LE edema which she states is currently at her baseline, otherwise without fever/chills, sputum production, dizziness, weakness, PND, unilateral extremity swelling, calf pain, hemoptysis, or O2 requirement at home. has been taking Robutsissin and cugh drops at home with minimal relief. Of note, patient received 2 units as needed BCs on 07/31 due to an hemoglobin of 6.9. Hemoglobin this morning is 8.3. Additionally, patient reports chest pain that is left-sided and only aggravated when she coughs, does not experience it with rest or activity. No radiation of chest pain to either extremity, or neck, however states she has experienced some jaw pain in the setting of this chest pain. Also reports she is noted her heart beating harder over the past several days. Denies neck/arm pain/numbness or tingling, palpitations, nausea, vomiting, syncopal episodes, weakness, dizziness. Does not have a history of chest pain or coronary artery disease, however does have A. fib that is rate controlled with digoxin, metoprolol, diltiazem. In Ed today, her initial troponin in ED was 0.15, EKG showed atrial fibrillation, possible anterior infarct, age undetermined, ST and T wave abnormality, consider inferior lateral ischemia. Patient had elevated troponin in April 2020 when she was hospitalized for Covid, however suspect at the time to be demand ischemia in the setting of COVID-19 and dehydration. Principal Diagnosis Pneumoniaimproved. Myelodysplastic syndromechronic Discharge Exam In general she is awake and alert pleasant no distress. HEENT normocephalic atraumatic mucous membranes moist. Breathing unlabored no accessory muscle use good effort. Skin shows no rashes no pallor or icterus. Neuro without focal deficits. Discharge Data Allergies Allergy/AdvReac Type Severity Reaction Status Date / Time hydrocodone Allergy Mild UNKNOWN Verified 08/02/21 13:25 "HAPPENED LONG TIME AGO" phenol Allergy Unknown LOCALIZED Verified 08/02/21 13:25 RASH AT INJECTION SITE protamine Allergy Unknown LOCALIZED Verified 08/02/21 13:25 RASH AT INJECTION SITE sodium phosphate Allergy Unknown LOCALIZED Verified 08/02/21 13:25 RASH AT INJECTION SITE zinc Allergy Unknown LOCALIZED Verified 08/02/21 13:25 RASH AT INJECTION SITE hydroxychloroquine AdvReac Unknown "BURPED Verified 08/02/21 13:25 FOR DAYS AND TORE MY STOMACH UP" Consultations 08/02/21 12:45 ED Decision to Admit Stat 08/02/21 13:39 Consult Cardiology Routine Ordered Studies 08/05/21 12:29 CT chest diagnostic wo con Routine Hospital Course (1) Pneumonia: Improved. On room air. Stable for rehab. Finished course of Zithromaxwill finish out beta-lactam with cefdinir. (2) Chest pain: -Pleuritic related to pneumonia. Does have mild elevation in troponinlikely demand ischemia from above and anemia (3) SOB (shortness of breath): (4) Elevated troponin I level: - Likely related to demand ischemia in setting of MDS induced anemia + infection. (5) Atrial fibrillation: Rate controlled, anticoagulated (6) Myelodysplastic syndrome with 5 q minus: - Continue Revlimid 2.5 mg PO daily. - Follows with [facility] for management; she receives Retacrit 40,000 units weekly -Hemoglobin today 6.9-2 units ordered. Procrit ordered for today as well. Had discussions with patientshe notes that she is needing transfusions at a way more frequent pace. We discussed this could be an acceleration of the disease process that may not have an answer, and she notes that and accepts that that may be the case. At the same time she would like a second opinion before knowing that she should go down a palliative route of care. We discussed that is extremely reasonable. Her son has seen heme[facility]onc [facility] therefore a referral was started in that direction. -Follow CBC every few days at rehab, transfuse as needed (7) Diabetes: -Outpatient follow-up (8) Hypertension: -Blood pressure is reasonable (9) Lumbar spinal stenosis: - Baseline mobility with walker. For rehab (10) Elevated bilirubin: Nonspecific, outpatient follow-up (11) Rheumatoid arthritis: -Continue home dosing (12) Chronic kidney disease, stage 4 (severe): Follow creatinine periodically DVT ppx: Xarelto 15 mg PO daily (hold if plt <30K). Currently stable for rehab Total Time Total Time Spent Total Time Spent (In Minutes): Less than 30 Discharge Plan Discharge Items Patient Disposition: Transfer Inpatient Rehab Fac Reason For Visit: SOB Discharge Diagnosis: pneumonia Activity: Resume your previous activity Non-emergency contact: Primary Care Provider and Oncologist Call non-emergency contact if: you have any medication questions Follow-up/Referrals: Marito Somers MD [Primary Care Provider] - Diet: Low Sodium (2gm) Addtl Attending Provider Instructions: pneumonia -improving -finish out a course of antibiotics with cefdinir 300mg HS for 6 more doses - next dose tonight (08/08) (completed course of azithromycin inpatient) -has been on room air for days myelodysplastic syndrome -Hgb dropped to 6.9 today -- transfused 2 units -gets 40,000 units erythropoeitin weekly (got today, 08/08) -she notes she's needing transfused at a more frequent rate than before. she is aware that there might not be anything else that can be done for her - but before choosing a palliative approach, she would like a second opinion - we have requested a referral to [facility] (process started today, 08/08, by [facility] retread operator - notes that typically [facility] will review the chart and get back to the patient) -follow Hgb every 2-3 days and transfuse as warranted afib -rate controlled, anticoagulated; has not shown s/s GI bleeding CKD4 -follow periodic BMP, creatinine currently 2.07 - last ~3 months has ranged from 1.5-2.14) Pending Studies at Discharge: No Stand-Alone Forms: [facility] [employer] Skilled Items Patient informed of condition?: Yes DNR: No Discharge Level of Care: Acute rehab Communicable Disease: No Discharge Prognosis: Stable Lines: None Urinary Catheter: No Medications and DC Order Prescriptions: New cefdinir 300 mg Capsule 300 mg PO Q24H Qty: 6 RF: 0 Continued rabeprazole [AcipHex] 20 mg tablet,delayed release (DR/EC) 20 mg PO QAM RF: 0 atorvastatin [Lipitor] 20 mg tablet 20 mg PO HS RF: 0 prednisone 5 mg tablet 5 mg PO QAM RF: 0 bumetanide 1 mg tablet 2 mg PO BID RF: 0 digoxin [Digox] 125 mcg (0.125 mg) tablet 125 mcg PO QAM RF: 0 insulin asp prt-insulin aspart [Novolog Mix 70-30FlexPen U-100] 100 unit/mL (70-30) insulin pen 85 unit SUBCUT QAM RF: 0 insulin asp prt-insulin aspart [Novolog Mix 70-30FlexPen U-100] 100 unit/mL (70-30) insulin pen 45 unit SUBCUT QPM RF: 0 allopurinol 300 mg tablet 300 mg PO QAM RF: 0 Xarelto 15 mg tablet 15 mg PO QAM RF: 0 Revlimid 2.5 mg capsule 2.5 mg PO QAM RF: 0 diltiazem HCl [Cartia XT] 240 mg Capsule,Extended Release 24hr 240 mg PO QAM RF: 0 potassium citrate 10 mEq (1,080 mg) Tablet Extended Release 30 meq PO BID RF: 0 potassium chloride 10 mEq tablet extended release 30 meq PO TID RF: 0 metoprolol tartrate 50 mg tablet 50 mg PO QAM RF: 0 loratadine [Claritin] 10 mg Tablet 10 mg PO QAM RF: 0 escitalopram oxalate 10 mg tablet 10 mg PO QAM RF: 0 Discharge Orders: Discharge Order (Routine); Ordered 08/08/21 Ordered By: Yousuf Baker/Other Patient Handouts: Managing Type 2 Diabetes Admission Data Admit Date/Time: 08/02/21 13:34 Attending Provider: Yousuf Hernandez Admit Provider: Charles Cooper Primary Care Provider: Marito Somers Other Providers: Charles Cooper ; Praneeth Dowell ; [facility] Other Interventions: Discharge Summary Assessment (RN) Last Done: 08/08/21 14:11 Coding Level of Care Code D/C DAY MANAGEMENT <30 MINS Diagnoses Pneumonia J18.9 Chest pain R07.9 SOB (shortness of breath) R06.02 Elevated troponin I level R77.8 Atrial fibrillation I48.91 Atrial fibrillation type: unspecified Myelodysplastic syndrome with 5 q minus D46.C Diabetes E11.9; Z79.4 Diabetes mellitus type: type 2 Diabetes mellitus exterminator helper termite insulin use: with exterminator helper termite use Diabetes mellitus complication status: without complication Hypertension I10 Hypertension type: essential hypertension Lumbar spinal stenosis M48.061 Elevated bilirubin R17 Rheumatoid arthritis M06.9 Chronic kidney disease, stage 4 (severe) N18.4
== END 2021-08-08 17:18 | DRG 193 ==
LOC: ED 10:13 → SUATTDRO 13:34 → 2N 13:34

== ENCOUNTER 2021-10-15 11:32 | Inpatient (IN) ==
[2021-10-15] MEDS ORDERED: SODIUM CHLORIDE 0.9% 500 ML IV STA (11:45)
--- NOTE | 2021-10-15 11:51 | Emergency Department Note ---
Impression & Plan Acute hyperkalemia, Atrial fibrillation, Bradycardia ED Provider Note NAME: ANA MOBLEY AGE: 81 SEX: F : 1940 ARRIVES VIA: Walk-In INFORMANT: Patient ED PROVIDER(S): Yousuf Mortensen DO CHIEF COMPLAINT: Possible overdose HPI: Patient is a 81-year-old female with past medical history of MDS, pancytopenia, hypertension, A. fib, diabetes who presents to the ER for double dosing on her Cardizem. She takes digoxin, metoprolol and Cardizem. She took 480 mg of her Cardizem this morning around 6 AM. She denies any chest pain or shortness of breath. No belly pain, nausea, vomiting, or diarrhea. No dysuria, urgency, or frequency. No other exacerbating or remitting factors. [facility] receiving [facility] and was brought over for further evaluation with a heart rate in the 30s. ROS: See above HPI for pertinent positives & negatives. A total of 10 systems reviewed and were otherwise negative. PAST MEDICAL HISTORY:See Below PAST SURGICAL HISTORY:See Below FAMILY HISTORY:See Below SOCIAL HISTORY:See Below HOME MEDICATIONS:See Below ALLERGIES:See Below VITALS:See Below PHYSICAL EXAMINATION: GENERAL: Sitting up in bed, alert, well appearing, well nourished, no distress, non-toxic EYE EXAM: normal conjunctiva. OROPHARYNX: no exudate, no erythema, lips, buccal mucosa, and tongue normal and mucous membranes are moist NECK: supple, no nuchal rigidity, no adenopathy, non-tender LUNGS: Clear to auscultation. Normal chest wall mechanics HEART: no murmurs, S1 normal and S2 normal ABDOMEN: abdomen soft, non-tender, normo-active bowel sounds, no masses, no rebound or guarding. UPPER EXTREMITIES: upper extremities are grossly normal. LOWER EXTREMITIES: No pitting edema. NEURO EXAM: Normal sensorium, cranial nerves II-XII grossly intact, normal speech, no gross weakness of arms, no gross weakness of legs. MEDICAL DECISION MAKING: Patient is 81-year-old female brought [facility] from [facility] as she was getting blood and admitted to double dosing on her Cardizem. She was found to be bradycardic and brought over for further evaluation. IV was established blood work was obtained. Heart rate was in the 20s to 30s. Labs show pancytopenia with a significant thrombocytopenia 24. This is fairly consistent with previous. Potassium was significantly elevated on i-STAT greater than 9. She was given 3 units of calcium gluconate, 3 A of bicarb, insulin and D50 as well as hour-long nebulizer treatment of albuterol. Heart rate trended up and she responded well to these interventions. Consulted with Dr. Devries from nephrology. Patient was on a bicarb drip and he was agreeable in regards to this. Patient is making urine and he recommended 80 mg of IV Lasix. Patient was already given a liter of fluids. She was updated bedside. Discussed with the hospitalist in regards to admission and spoke with Dr. Givens. As I initially believe that this patient would likely go to the unit. Did speak with [place] poison control as initially I felt this was secondary to overdose of medications. Did consider dig toxicity but she was very responsive to medications that we gave for the hyperkalemia. Digoxin was only 2.1. We will hold on any Digibind at this time. Did repeat BMP which was pending upon admission. Triage Nursing notes reviewed. Limited review of prior medical records performed Vital Signs: reviewed and remarkable for no significant abnormalities Differential diagnosis: Infection, dehydration, metabolic abnormality, hypo/hyperglycemia, electrolyte disturbance, anemia, hypoxia, cardiac sources, intracerebral event, toxicologic, neurologic, as well as other pathologies. ER treatment provided: See below Diagnostics interpreted by me: ECG: A. fib with marked bradycardia rate of 36 Normal axis No PVCs Septal Q waves ST scooping in the lateral leads Cardiac Monitoring: An order was placed for continuous cardiac monitoring. The monitor shows a rate of 28 with A. fib rhythm. Laboratory studies: As stated above and show below. Imaging studies: Chest x-ray was clean Consultation(s): Discussed with [facility] poison control, ICU, case and hospitalist Procedures: none Critical Care: I have personally spent 75 minutes of critical care time in the direct management of this patient. This includes bedside care, interpretation of diagnostic studies, and testing, discussion with consultants, patient, and family members, and other required patient management activities. This 75 minutes is in excess of all separately billable procedures. Past Med/Surg History Medical History (Updated 10/15/21 @ 15:49 by Yousuf Mortensen DO) A-fib Acute hypokalemia CKD (chronic kidney disease) stage 3, GFR 30-59 ml/min Diabetes Elevated troponin I level GI bleed Hx of pneumococcal pneumonia Hypertension Hypomagnesemia IDDM (insulin dependent diabetes mellitus) Inflammatory arthritis Malignant neoplasm of central portion of female breast (10/01/11) "Left breast pain Finding of a left breast mass Status post biopsy revealing infiltrating ductal carcinoma Status post partial mastectomy and sentinel lymph node biopsy Pathologic stage [id number] Estrogen receptor positive, progesterone receptor positive, HER-2/abelardo ne gative Status post completion of radiation therapy 04/08/2012 received 6120 cGy" Surgical History History of hysterectomy History of lumpectomy Hx of cholecystectomy Family History Other Cancer Diabetes Social History Smoking Status: Never smoker Hx Alcohol Use: No Hx Substance Use: No Preferred Language: Yakut Communication Ability: Effective Director Of Business Systems Required: No Beliefs That Will Affect Care: None Current Living Situation: Alone Feels Safe at Home: Yes Assistive Devices: Walker Allergies Allergies Allergy/AdvReac Type Severity Reaction Status Date / Time hydrocodone Allergy Mild UNKNOWN Verified 10/15/21 07:39 "HAPPENED LONG TIME AGO" phenol Allergy Mild LOCALIZED Verified 10/15/21 07:39 RASH AT INJECTION SITE protamine Allergy Mild LOCALIZED Verified 10/15/21 07:39 RASH AT INJECTION SITE sodium phosphate Allergy Mild LOCALIZED Verified 10/15/21 07:39 RASH AT INJECTION SITE zinc Allergy Mild LOCALIZED Verified 10/15/21 07:39 RASH AT INJECTION SITE hydroxychloroquine AdvReac Mild "BURPED Verified 10/15/21 07:39 FOR DAYS AND TORE MY STOMACH UP" Home Meds Home Medications Medication Instructions Recorded Confirmed allopurinol 300 mg tablet 300 mg PO DAILY 10/15/21 10/15/21 bumetanide 1 mg tablet 2 mg PO BID 10/15/21 10/15/21 digoxin 125 mcg (0.125 mg) tablet 125 mcg PO DAILY 10/15/21 10/15/21 diltiazem HCl 240 mg 240 mg PO DAILY 10/15/21 10/15/21 capsule,extended release 24 hr escitalopram oxalate 10 mg tablet 10 mg PO DAILY 10/15/21 10/15/21 insulin NPH isoph U-100 human 100 24 unit SUBCUT DAILYBD 10/15/21 10/15/21 unit/mL (3 mL) subcutaneous pen insulin NPH isoph U-100 human 100 34 unit SUBCUT DAILYBB 10/15/21 10/15/21 unit/mL (3 mL) subcutaneous pen loratadine 10 mg tablet 10 mg PO DAILY 10/15/21 10/15/21 metoprolol tartrate 50 mg tablet 50 mg PO DAILY 10/15/21 10/15/21 potassium chloride 10 mEq 30 meq PO BID 10/15/21 10/15/21 tablet,extended release prednisone 5 mg tablet 5 mg PO DAILY 10/15/21 10/15/21 rabeprazole 20 mg tablet,delayed 20 mg PO DAILY 10/15/21 10/15/21 release tramadol 50 mg tablet 50 mg PO Q6H PRN 10/15/21 10/15/21 Results & Data (ED) Vital Signs Vital Signs - 24 hr 10/15/21 11:39 10/15/21 11:53 10/15/21 12:21 Temperature 36.6 C Temperature Source Oral Pulse Rate 35 L 35 L Pulse Rate [Radial] 35 L 38 L Pulse Rhythm [Radial] Respiratory Rate 14 14 17 Respiratory Effort / Characteristics Non-Labored Non-Labored Non-Labored Spontaneous Respiratory Depth Normal Normal Respiratory Pattern Regular Regular Blood Pressure 131/77 Blood Pressure [Right Arm] 131/77 Blood Pressure Mean 95 Blood Pressure Mean [Right Arm] 95 Pulse Oximetry 98 96 98 Oxygen Delivery Method Room Air Room Air Room Air Sepsis Recent Fever Within 48 Hours No Sepsis New/Unexplained Change in Mental Status No Sepsis Action Taken by Nursing No Action Required 10/15/21 12:22 10/15/21 13:06 10/15/21 14:00 Temperature Temperature Source Pulse Rate Pulse Rate [Radial] 42 L 48 L 53 L Pulse Rhythm [Radial] Irregular Respiratory Rate 16 18 16 Respiratory Effort / Characteristics Non-Labored Non-Labored Non-Labored Respiratory Depth Normal Normal Normal Respiratory Pattern Regular Blood Pressure Blood Pressure [Right Arm] 126/56 L 132/51 L 163/75 H Blood Pressure Mean Blood Pressure Mean [Right Arm] 79 78 104 Pulse Oximetry 99 100 99 Oxygen Delivery Method Nebulizer Nebulizer Room Air Sepsis Recent Fever Within 48 Hours Sepsis New/Unexplained Change in Mental Status Sepsis Action Taken by Nursing 10/15/21 15:35 Temperature Temperature Source Pulse Rate Pulse Rate [Radial] 66 Pulse Rhythm [Radial] Respiratory Rate 18 Respiratory Effort / Characteristics Non-Labored Respiratory Depth Normal Respiratory Pattern Regular Blood Pressure Blood Pressure [Right Arm] 119/41 L Blood Pressure Mean Blood Pressure Mean [Right Arm] 67 Pulse Oximetry 94 Oxygen Delivery Method Room Air Sepsis Recent Fever Within 48 Hours Sepsis New/Unexplained Change in Mental Status Sepsis Action Taken by Nursing Laboratory Data Result diagrams: 10/15/21 11:55 10/15/21 11:55 Lab Results 10/15/21 10/15/21 10/15/21 Range/Units 11:55 11:55 11:55 WBC 3.71 L (4.8-10.8) K/uL RBC 3.80 L (4.2-5.4) M/uL Hgb 11.1 L D (12.0-16.0) g/dL POC Hgb (12.0-16.0) g/dl Hct 35.3 L (37-47) % POC Hct (37-47) % MCV 92.9 (80-100) fL MCH 29.2 (25-34) pg MCHC 31.4 L (32-36) g/dL RDW Std Deviation 50.2 H (36.4-46.3) fL RDW Coeff of Griffin 15.1 H (11.5-14.5) % Plt Count 24 L* (130-400) K/uL Neutrophils % (Manual) 94.8 % Lymphocytes % (Manual) 3.5 % Monocytes % (Manual) 1.7 % Neutrophils # (Manual) 3.52 (1.4-6.5) K/uL Total Absolute Neuts 3.52 (1.4-6.5) K/uL Lymphocytes # (Manual) 0.13 L (1.2-3.4) K/uL Total Abs Lymphocytes 0.13 L (1.2-3.4) K/uL Monocytes # (Manual) 0.06 L (0.11-0.59) K/uL Hyposegmented Neuts 1+ Hypogranular Neuts 1+ Platelet Estimate SIGNIFIC DECREASED (Normal) Giant Platelets 1+ POC Sodium (135-144) mmol/L Sodium 133 L (136-145) mmol/L POC Potassium (3.3-5.0) mmol/L Potassium 8.5 H* D (3.5-5.1) mmol/L POC Chloride (101-112) mmol/L Chloride 101 (98-107) mmol/L Carbon Dioxide 26 (21-32) mmol/L POC Total CO2 (24-31) mmol/L Anion Gap 6 (3-11) POC Anion Gap POC BUN (7-18) mg/dl BUN 43 H (6-23) mg/dl Creatinine 1.57 H (0.6-1.2) mg/dl POC Creatinine (0.6-1.3) mg/dl Est Cr Clr Drug Dosing Not Reportable Est GFR ( Amer) 36.0 ml/min Est GFR (Non-Af Amer) 31.0 ml/min BUN/Creatinine Ratio 27.4 H (10-20) Glucose 282 H (70-99(Fasting)) mg/dl POC Glucose (other) (70-99) mg/dl Calcium 8.8 (8.5-10.1) mg/dl POC Ioniz Calcium Bekah (1.12-1.32) mmol/l Total Bilirubin 1.8 H (0.2-1.0) mg/dl AST 16 (13-39) U/L ALT 21 (7-52) U/L Alkaline Phosphatase 82 (34-104) U/L Troponin I High Sens 18.6 H (0-14) pg/ml Total Protein 6.2 (6.0-8.3) gm/dl Albumin 3.8 (3.4-5.0) gm/dl Globulin 2.4 L (2.5-4.0) gm/dl Albumin/Globulin Ratio 1.6 (0.9-2) Lipase 7 L (11-82) U/L Digoxin (0.8-2.0) ng/ml SARS-CoV-2, RNA, NAAT (NEGATIVE) 10/15/21 10/15/21 10/15/21 Range/Units 11:55 11:59 12:00 WBC (4.8-10.8) K/uL RBC (4.2-5.4) M/uL Hgb (12.0-16.0) g/dL POC Hgb 11.2 L (12.0-16.0) g/dl Hct (37-47) % POC Hct 33 L (37-47) % MCV (80-100) fL MCH (25-34) pg MCHC (32-36) g/dL RDW Std Deviation (36.4-46.3) fL RDW Coeff of Griffin (11.5-14.5) % Plt Count (130-400) K/uL Neutrophils % (Manual) % Lymphocytes % (Manual) % Monocytes % (Manual) % Neutrophils # (Manual) (1.4-6.5) K/uL Total Absolute Neuts (1.4-6.5) K/uL Lymphocytes # (Manual) (1.2-3.4) K/uL Total Abs Lymphocytes (1.2-3.4) K/uL Monocytes # (Manual) (0.11-0.59) K/uL Hyposegmented Neuts Hypogranular Neuts Platelet Estimate (Normal) Giant Platelets POC Sodium 133 L (135-144) mmol/L Sodium (136-145) mmol/L POC Potassium > 9.0 H* (3.3-5.0) mmol/L Potassium (3.5-5.1) mmol/L POC Chloride 102 (101-112) mmol/L Chloride (98-107) mmol/L Carbon Dioxide (21-32) mmol/L POC Total CO2 24 (24-31) mmol/L Anion Gap (3-11) POC Anion Gap TNP POC BUN 44 H (7-18) mg/dl BUN (6-23) mg/dl Creatinine (0.6-1.2) mg/dl POC Creatinine 1.5 H (0.6-1.3) mg/dl Est Cr Clr Drug Dosing Est GFR ( Amer) ml/min Est GFR (Non-Af Amer) ml/min BUN/Creatinine Ratio (10-20) Glucose (70-99(Fasting)) mg/dl POC Glucose (other) 296 H (70-99) mg/dl Calcium (8.5-10.1) mg/dl POC Ioniz Calcium Bekah 1.13 (1.12-1.32) mmol/l Total Bilirubin (0.2-1.0) mg/dl AST (13-39) U/L ALT (7-52) U/L Alkaline Phosphatase (34-104) U/L Troponin I High Sens (0-14) pg/ml Total Protein (6.0-8.3) gm/dl Albumin (3.4-5.0) gm/dl Globulin (2.5-4.0) gm/dl Albumin/Globulin Ratio (0.9-2) Lipase (11-82) U/L Digoxin 2.1 H (0.8-2.0) ng/ml SARS-CoV-2, RNA, NAAT NEGATIVE (NEGATIVE) 10/15/21 Range/Units 13:55 WBC (4.8-10.8) K/uL RBC (4.2-5.4) M/uL Hgb (12.0-16.0) g/dL POC Hgb (12.0-16.0) g/dl Hct (37-47) % POC Hct (37-47) % MCV (80-100) fL MCH (25-34) pg MCHC (32-36) g/dL RDW Std Deviation (36.4-46.3) fL RDW Coeff of Griffin (11.5-14.5) % Plt Count (130-400) K/uL Neutrophils % (Manual) % Lymphocytes % (Manual) % Monocytes % (Manual) % Neutrophils # (Manual) (1.4-6.5) K/uL Total Absolute Neuts (1.4-6.5) K/uL Lymphocytes # (Manual) (1.2-3.4) K/uL Total Abs Lymphocytes (1.2-3.4) K/uL Monocytes # (Manual) (0.11-0.59) K/uL Hyposegmented Neuts Hypogranular Neuts Platelet Estimate (Normal) Giant Platelets POC Sodium (135-144) mmol/L Sodium (136-145) mmol/L POC Potassium (3.3-5.0) mmol/L Potassium (3.5-5.1) mmol/L POC Chloride (101-112) mmol/L Chloride (98-107) mmol/L Carbon Dioxide (21-32) mmol/L POC Total CO2 (24-31) mmol/L Anion Gap (3-11) POC Anion Gap POC BUN (7-18) mg/dl BUN (6-23) mg/dl Creatinine (0.6-1.2) mg/dl POC Creatinine (0.6-1.3) mg/dl Est Cr Clr Drug Dosing Est GFR ( Amer) ml/min Est GFR (Non-Af Amer) ml/min BUN/Creatinine Ratio (10-20) Glucose (70-99(Fasting)) mg/dl POC Glucose (other) (70-99) mg/dl Calcium (8.5-10.1) mg/dl POC Ioniz Calcium Bekah (1.12-1.32) mmol/l Total Bilirubin (0.2-1.0) mg/dl AST (13-39) U/L ALT (7-52) U/L Alkaline Phosphatase (34-104) U/L Troponin I High Sens Cancelled (0-14) pg/ml Total Protein (6.0-8.3) gm/dl Albumin (3.4-5.0) gm/dl Globulin (2.5-4.0) gm/dl Albumin/Globulin Ratio (0.9-2) Lipase (11-82) U/L Digoxin (0.8-2.0) ng/ml SARS-CoV-2, RNA, NAAT (NEGATIVE) Administered Medications Sodium Bicarbonate 150 meq/ (Dextrose) 1,150 mls @ 200 mls/hr IV .Q5H45M LEONA Stop: 11/14/21 13:14 Last Admin: 10/15/21 13:59 Dose: 200 mls/hr Documented by: [id number] Discontinued Medications Albuterol (Albut/Ipratrop 3mg/0.5mg Neb 3 Ml Vial) 12 ml NEB ONE ONE; Protocol Stop: 10/15/21 12:01 Last Admin: 10/15/21 12:21 Dose: 12 ml Documented by: [id number] Calcium Gluconate (Calcium Gluconate 1000 Mg/60 Ml Nss) Confirm Administered Dose 2,000 mg IV .STK-MED ONE Stop: 10/15/21 12:04 Last Admin: 10/15/21 12:30 Dose: Not Given Documented by: [id number] Dextrose (Dextrose 50% 50 Ml Syringe) 50 ml IV NOW STA Stop: 10/15/21 12:01 Last Admin: 10/15/21 12:19 Dose: 50 ml Documented by: [id number] Furosemide (Furosemide 40 Mg/4 Ml Vial) 80 mg IV ONE ONE Stop: 10/15/21 13:13 Last Admin: 10/15/21 13:27 Dose: 80 mg Documented by: [id number] Sodium Chloride (Nss) 500 mls @ 999 mls/hr IV .Q31M STA Stop: 10/15/21 12:15 Last Infusion: 10/15/21 13:07 Dose: 0 mls/hr Documented by: [id number] Infusion: 10/15/21 12:24 Dose: 0 mls/hr Documented by: [id number] Admin: 10/15/21 11:56 Dose: 999 mls/hr Documented by: [id number] Calcium Gluconate () 1,000 mg in 60 mls @ 240 mls/hr IV NOW STA Stop: 10/15/21 12:14 Last Infusion: 10/15/21 12:28 Dose: 0 mls/hr Documented by: [id number] Admin: 10/15/21 12:13 Dose: 240 mls/hr Documented by: [id number] Calcium Gluconate () 1,000 mg in 60 mls @ 240 mls/hr IV NOW STA Stop: 10/15/21 12:14 Last Infusion: 10/15/21 13:00 Dose: 0 mls/hr Documented by: [id number] Admin: 10/15/21 12:29 Dose: 240 mls/hr Documented by: [id number] Sodium Chloride (Nss 1000ml) 1,000 mls @ 999 mls/hr IV .Q1H1M ONE Stop: 10/15/21 13:05 Last Infusion: 10/15/21 13:18 Dose: 0 mls/hr Documented by: [id number] Admin: 10/15/21 12:24 Dose: 999 mls/hr Documented by: [id number] Calcium Gluconate () 1,000 mg in 60 mls @ 240 mls/hr IV NOW STA Stop: 10/15/21 12:29 Last Infusion: 10/15/21 13:17 Dose: 0 mls/hr Documented by: [id number] Admin: 10/15/21 13:00 Dose: 240 mls/hr Documented by: [id number] Insulin Human Regular (Novolin-R Insulin Per Unit Charge) 10 units IV NOW STA Stop: 10/15/21 12:01 Last Admin: 10/15/21 12:20 Dose: 10 units Documented by: [id number] Cosigned by: [id number] Patiromer (Patiromer Calcium Sorbitex 8.4 Gm Pack) 8.4 gm PO NOW ONE Stop: 10/15/21 13:31 Last Admin: 10/15/21 13:59 Dose: 8.4 gm Documented by: [id number] Sodium Bicarbonate (Sodium Bicarb 8.4% Inj 50 Meq/50 Ml Syr) 150 meq IV NOW STA Stop: 10/15/21 12:01 Last Admin: 10/15/21 12:06 Dose: 150 meq Documented by: [id number] Imaging Data Radiologist's Impression: Chest X-Ray 10/15/21 11:46 XR chest 1V portable HISTORY: 81 years-old Female Chest Pain . Acute atypical chest pain COMPARISON: Chest CT 08/05/2021, chest radiograph 08/02/2021 TECHNIQUE: Portable AP view of the chest FINDINGS: Cardiac silhouette is enlarged. Pulmonary vascular congestion with interstitial coarsening. Right greater than left pleural effusions with right basilar predominant consolidation redemonstrated. Degenerative changes of the shoulders and spine. IMPRESSION: 1. Cardiomegaly with pulmonary edema. 2. Right greater than left pleural effusions with right basilar predominant consolidation appears generally unchanged from the prior study. ACT 112: Negative or not required by law. The above report was generated using voice recognition software. It may contain grammatical, syntax or spelling errors. Electronically signed by: Trav Marcelo M.D. 10/15/2021 12:35 PM Discharge Plan Visit Data Chief Complaint: Overdose (Accidental) Stated Complaint: BRADYCARDIA DUE TO ACCIDENTAL OVERDOSE ED Provider: Yousuf Mortensen Discharge Problem: Acute hyperkalemia, Atrial fibrillation, Bradycardia Discharge Instructions Interventions: ED Discharge Assessment Last Done: 10/15/21 15:40 Forms Stand Alone Forms: [facility] Prescriptions Prescriptions: No Action rabeprazole 20 mg tablet,delayed release (DR/EC) 20 mg PO DAILY RF: 0 prednisone 5 mg tablet 5 mg PO DAILY RF: 0 potassium chloride 10 mEq tablet extended release 30 meq PO BID RF: 0 tramadol 50 mg tablet 50 mg PO Q6H PRN (Reason: Pain) RF: 0 metoprolol tartrate 50 mg tablet 50 mg PO DAILY RF: 0 bumetanide 1 mg tablet 2 mg PO BID RF: 0 allopurinol 300 mg tablet 300 mg PO DAILY RF: 0 digoxin 125 mcg (0.125 mg) Tablet 125 mcg PO DAILY RF: 0 loratadine 10 mg Tablet 10 mg PO DAILY RF: 0 escitalopram oxalate 10 mg tablet 10 mg PO DAILY RF: 0 Humulin N Pen 100 unit/mL (3 mL) Insulin Pen 24 unit SUBCUT DAILYBD RF: 0 Humulin N Pen 100 unit/mL (3 mL) Insulin Pen 34 unit SUBCUT DAILYBB RF: 0 diltiazem HCl 240 mg capsule,extended release 24hr 240 mg PO DAILY RF: 0 Referrals Referrals: Jose Matthews MD [Primary Care Provider] -
[2021-10-15] MEDS ORDERED: ALBUT/IPRATROP 3MG/0.5MG NEB 3 ML VIAL NEB ONE (12:00)
[2021-10-15] MEDS ORDERED: SODIUM BICARB 8.4% INJ 50 MEQ/50 ML SYR IV STA (12:00)
[2021-10-15] MEDS ORDERED: CALCIUM GLUCONATE 1,000 MG/60 ML BAG IV STA ×3 (12:00→12:15)
[2021-10-15] MEDS ORDERED: DEXTROSE 50% 50 ML SYRINGE IV STA (12:00)
[2021-10-15] MEDS ORDERED: NovoLIN-R INSULIN PER UNIT CHARGE IV STA (12:00)
[2021-10-15] MEDS ORDERED: CALCIUM GLUCONATE 1000 MG/60 ML NSS IV ONE (12:03)
[2021-10-15] MEDS ORDERED: SODIUM CHLORIDE 0.9% 1000ML 1,000 ML IV ONE (12:05)
--- NOTE | 2021-10-15 12:36 | XRay Report ---
XR chest 1V portable HISTORY: 81 years-old Female Chest Pain . Acute atypical chest pain COMPARISON: Chest CT 08/05/2021, chest radiograph 08/02/2021 TECHNIQUE: Portable AP view of the chest FINDINGS: Cardiac silhouette is enlarged. Pulmonary vascular congestion with interstitial coarsening. Right gre ater than left pleural effusions with right basilar predominant consolidation redemonstrated. Degener ative changes of the shoulders and spine. IMPRESSION: 1. Cardiomegaly with pulmonary edema. 2. Right greater than left pleural effusions with right basilar predominant consolidation appears gen erally unchanged from the prior study. ACT 112: Negative or not required by law. The above report was generated using voice recognition software. It may contain grammatical, syntax o r spelling errors. Electronically signed by: Trav Marcelo M.D. 10/15/2021 12:35 PM
[2021-10-15 12:56] LABS: Hematocrit (blood only) 35.3 % (37-47); Hemoglobin 11.1 g/dL (12.0-16.0); Mean Corpuscular Hemoglobin 29.2 pg (25-34); Mean Corpuscular Hgb Conc 31.4 g/dL (32-36); Mean Corpuscular Volume 92.9 fL (80-100); RDW Coefficient of Variation 15.1 % (11.5-14.5); RDW Standard Deviation 50.2 fL (36.4-46.3); White Blood Count 3.71 K/uL (4.8-10.8)
[2021-10-15 13:04] LABS: Platelet Count 24 K/uL (130-400)
[2021-10-15 13:05] LABS: ALC (manual) 0.13 K/uL (1.2-3.4); ANC (manual) 3.52 K/uL (1.4-6.5); Giant Platelets 1+; Hypogranular Neutrophils 1+; Lymphocytes # (manual) 0.13 K/uL (1.2-3.4); Lymphocytes % (manual) 3.5 %; Monocytes # (manual) 0.06 K/uL (0.11-0.59); Monocytes % (manual) 1.7 %; Neutrophils # (manual) 3.52 K/uL (1.4-6.5); Neutrophils % (manual) 94.8 %; Platelet Estimate SIGNIFIC DECREASED (Normal)
[2021-10-15 13:09] LABS: Alanine Aminotransferase 21 U/L (7-52); Albumin Globulin Ratio 1.6 (0.9-2); Albumin Level 3.8 gm/dl (3.4-5.0); Alkaline Phosphatase 82 U/L (34-104); Anion Gap 6 (3-11); Aspartate Aminotransferase 16 U/L (13-39); BUN Creatinine Ratio 27.4 (10-20); Bilirubin,Total 1.8 mg/dl (0.2-1.0); Blood Urea Nitrogen 43 mg/dl (6-23); Calcium 8.8 mg/dl (8.5-10.1); Carbon Dioxide 26 mmol/L (21-32); Chloride 101 mmol/L (98-107); Globulin 2.4 gm/dl (2.5-4.0); Glucose 282 mg/dl (70-99(Fasting)); Lipase 7 U/L (11-82); Potassium 8.5 mmol/L (3.5-5.1); Sodium 133 mmol/L (136-145); Total Protein 6.2 gm/dl (6.0-8.3)
[2021-10-15] MEDS ORDERED: FUROSEMIDE 40 MG/4 ML VIAL IV ONE (13:12)
[2021-10-15] MEDS ORDERED: SODIUM BICARBONATE 8.4% 150 MEQ in DEXTROSE 5% 1,000 ML IV SCH (13:15)
[2021-10-15] MEDS ORDERED: PATIROMER CALCIUM SORBITEX 8.4 GM PACK PO ONE (13:30)
--- NOTE | 2021-10-15 13:47 | History & Physical Report ---
Date of Service October 15, 2021 Assessment & Plan (1) Hyperkalemia: (2) Bradycardia on ECG: (3) Calcium channel elvin overdose: (4) Myelodysplastic syndrome with 5 q minus: (5) Pancytopenia: (6) Atrial fibrillation: (7) Elevated bilirubin: (8) Hypertension: (9) CKD (chronic kidney disease) stage 3, GFR 30-59 ml/min: (10) Inflammatory arthritis: (11) IDDM (insulin dependent diabetes mellitus): Plan: Please refer to Dr. Gonzalez addendum to assessment and plan. Addendum: Pt is a 81 y/o F with hx of IDDM, Afib (not on AC), Myelodysplastic syndrome with pancytopenia, HTN, Inflammatory arthritis, Spinal stenosis, hx of COVID pneumonia, hx of L breast Ca s/p lumpectomy and uterine cancer s/p BENSON, chronic prednisone use admitted for hyperkalemia with Bradycardia and Cardizem overdose. HyperK+: -could be due to excess KCL intake with lower dose of bumex intake -pt is asymptomatic but she was bradycardic -s/p Ca++gluconate 3000mg, Bicarb, dextrose/Insulin 10 units, albuterol nebs, Veltassa 8.4g, and Lasix 80mg IV -repeating BMP in 1 hour after Lasix -will admit the pt to PCU Tele -BMP q 4hrs, hold KCL supplement - nephro consult - pt lives alone: she would benefit from a porter sample case consult for home resources on discharge (ex: home nursing or home care and home health aides teacher) -PT/OT Excess Cardizem dose (480mg ) with Bradycardia: -HR is improving and pt is asymptomatic -will hold both metoprolol and Cardizem for now -monitor HR on Tele -Cards consult Afib with pulm edema on CXR: -per pt she is not taking xarelto: likely due to thrombocytopenia -digoxin level is high (2.1) with shorter QTc -will hold digoxin for now -Echo to assess pulm edema -will continue home PO Bumex dose for now -admit PCU tele -repeat digoxin level tomorrow and EKG in the AM MDS with pancytopenia: -hgb is better than baseline -Plt is near her baseline -possible PLT transfusion if <10 -for now SCD for DVT PPX Elevated T bili: -has chronic elevated Tbili - if trending up then will get CT abd or Abd US IDDM: -will continue home insulin regimen Lumbar spinal stenosis on chronic prednisone + Seasonal allergy + GERD + Gout: -will continue prednisone with home meds DVT PPx: SCD FULL CODE Diet: Cardiac, Renal and DMII Sina Gonzalez M.D. History of Present Illness Chief Complaint: Took extra dose of cardizem today and HR was low at [facility]. Primary Care Provider: Jose Matthews MD This is a 81 yr old F who has a significant PMH of T2DM, Afib off anticoagulation, MDS and chronic pancytopenia, HTN, HLD, gout, inflammatory polyarthritis, hx of breast and uterine ca, CKD 3, hx of covid who presents to ED 2/ to found to have bradycardia at [facility] while getting transfused. She was receiving 2 units of PRBC today and only had 1 full unit transfused. Her HR was found to be in 30-40s. After further questioning it was determined that she took an extra dose of her cardizem this morning, equal to 480mg on top of her metoprolol and digoxin. When arriving to ED her HR was in 20s-30s. Her K was found to be > 9. She states she feels well. SHe denies chest pain, sob, f,c,s, lightheaded, dizziness, uri sx, n/v/d, abd pain. She further denies bleeding from nose, gums, melena or hematochezia. She does have Hx of uterine ca s/p hysterectomy. SHe also had hx of L breast ca s/p lumpectomy and lymph node dissection. She follows with [facility] Dr. Barrientos. She was due for chemotherapy today. She lives by herself and performs all ADLS. She takes all of her medications regularly. She has been taking her potassium tablets regulary; however, she has missed several doses of her bumex in the last several days. She admits to being very busy the last 8 days and forgot to take them. SHe also has been fatigued. Her sister lives close by. In ED pt remained hemodynamically stable. She was significantly bradycardic. Her labs revealed hgb 11.1 and 35.3, plt24, K 8.5, na 133, bun 43, cr 1.57, glucose 282 and dig 2.1. In Ed she received 3 amps of calcium gluconate and bicarb, 1hr long neb, started on bicarb gtt, IV insulin/dextrose and 80mg of IV lasix. Allergies Allergy/AdvReac Type Severity Reaction Status Date / Time hydrocodone Allergy Mild UNKNOWN Verified 10/15/21 07:39 "HAPPENED LONG TIME AGO" phenol Allergy Mild LOCALIZED Verified 10/15/21 07:39 RASH AT INJECTION SITE protamine Allergy Mild LOCALIZED Verified 10/15/21 07:39 RASH AT INJECTION SITE sodium phosphate Allergy Mild LOCALIZED Verified 10/15/21 07:39 RASH AT INJECTION SITE zinc Allergy Mild LOCALIZED Verified 10/15/21 07:39 RASH AT INJECTION SITE hydroxychloroquine AdvReac Mild "BURPED Verified 10/15/21 07:39 FOR DAYS AND TORE MY STOMACH UP" Home Medications Medication Instructions Recorded Confirmed Type allopurinol 300 mg tablet 300 mg PO DAILY 10/15/21 10/15/21 History bumetanide 1 mg tablet 2 mg PO BID 10/15/21 10/15/21 History digoxin 125 mcg (0.125 mg) tablet 125 mcg PO DAILY 10/15/21 10/15/21 History diltiazem HCl 240 mg 240 mg PO DAILY 10/15/21 10/15/21 History capsule,extended release 24 hr escitalopram oxalate 10 mg tablet 10 mg PO DAILY 10/15/21 10/15/21 History insulin NPH isoph U-100 human 100 24 unit SUBCUT DAILYBD 10/15/21 10/15/21 History unit/mL (3 mL) subcutaneous pen insulin NPH isoph U-100 human 100 34 unit SUBCUT DAILYBB 10/15/21 10/15/21 History unit/mL (3 mL) subcutaneous pen loratadine 10 mg tablet 10 mg PO DAILY 10/15/21 10/15/21 History metoprolol tartrate 50 mg tablet 50 mg PO DAILY 10/15/21 10/15/21 History potassium chloride 10 mEq 30 meq PO BID 10/15/21 10/15/21 History tablet,extended release prednisone 5 mg tablet 5 mg PO DAILY 10/15/21 10/15/21 History rabeprazole 20 mg tablet,delayed 20 mg PO DAILY 10/15/21 10/15/21 History release tramadol 50 mg tablet 50 mg PO Q6H PRN 10/15/21 10/15/21 History Past Med/Surg History Medical History (Updated 10/15/21 @ 14:47 by Sina Gonzalez MD) A-fib Acute hypokalemia CKD (chronic kidney disease) stage 3, GFR 30-59 ml/min Diabetes Elevated troponin I level GI bleed Hx of pneumococcal pneumonia Hypertension Hypomagnesemia IDDM (insulin dependent diabetes mellitus) Inflammatory arthritis Malignant neoplasm of central portion of female breast (10/01/11) "Left breast pain Finding of a left breast mass Status post biopsy revealing infiltrating ductal carcinoma Status post partial mastectomy and sentinel lymph node biopsy Pathologic stage [id number] Estrogen receptor positive, progesterone receptor positive, HER-2/abelardo negative Status post completion of radiation therapy 04/08/2012 received 6120 cGy" Surgical History History of hysterectomy History of lumpectomy Hx of cholecystectomy Family History Other Cancer Diabetes Social History Smoking Status: Never smoker Hx Alcohol Use: No Hx Substance Use: No Preferred Language: Urdu Communication Ability: Effective Drivers License Examiner Required: No Beliefs That Will Affect Care: None Current Living Situation: Alone Feels Safe at Home: Yes Assistive Devices: Walker Review of Systems Review of Systems: All systems reviewed & are unremarkable except as noted in HPI & below Physical Exam Physical Exam: Please refer to Dr. Gonzalez addendum for physical exam finding Results & Data Results & Data ([facility]) Vital Signs (Past 12 Hours) Vital Signs Temp Pulse Pulse Resp BP BP Pulse Ox 10/15/21 13:06 48 L 18 132/51 L 100 10/15/21 12:22 42 L 16 126/56 L 99 10/15/21 12:21 38 L 17 98 10/15/21 11:53 35 L 35 L 14 131/77 96 10/15/21 11:39 36.6 C 35 L 14 131/77 98 Diagnostic Findings Chest X-Ray 10/15/21 11:46 XR chest 1V portable HISTORY: 81 years-old Female Chest Pain . Acute atypical chest pain COMPARISON: Chest CT 08/05/2021, chest radiograph 08/02/2021 TECHNIQUE: Portable AP view of the chest FINDINGS: Cardiac silhouette is enlarged. Pulmonary vascular congestion with interstitial coarsening. Right greater than left pleural effusions with right basilar predominant consolidation redemonstrated. Degenerative changes of the shoulders and spine. IMPRESSION: 1. Cardiomegaly with pulmonary edema. 2. Right greater than left pleural effusions with right basilar predominant consolidation appears generally unchanged from the prior study. ACT 112: Negative or not required by law. The above report was generated using voice recognition software. It may contain grammatical, syntax or spelling errors. Electronically signed by: Trav Marcelo M.D. 10/15/2021 12:35 PM Medications Administered Medication List Discontinued Medications Albuterol (Albut/Ipratrop 3mg/0.5mg Neb 3 Ml Vial) 12 ml NEB ONE ONE; Protocol Stop: 10/15/21 12:01 Last Admin: 10/15/21 12:21 Dose: 12 ml Documented by: [id number] Calcium Gluconate (Calcium Gluconate 1000 Mg/60 Ml Nss) Confirm Administered Dose 2,000 mg IV .STK-MED ONE Stop: 10/15/21 12:04 Last Admin: 10/15/21 12:30 Dose: Not Given Documented by: [id number] Dextrose (Dextrose 50% 50 Ml Syringe) 50 ml IV NOW STA Stop: 10/15/21 12:01 Last Admin: 10/15/21 12:19 Dose: 50 ml Documented by: [id number] Furosemide (Furosemide 40 Mg/4 Ml Vial) 80 mg IV ONE ONE Stop: 10/15/21 13:13 Last Admin: 10/15/21 13:27 Dose: 80 mg Documented by: [id number] Sodium Chloride (Nss) 500 mls @ 999 mls/hr IV .Q31M STA Stop: 10/15/21 12:15 Last Infusion: 10/15/21 13:07 Dose: 0 mls/hr Documented by: [id number] Infusion: 10/15/21 12:24 Dose: 0 mls/hr Documented by: [id number] Admin: 10/15/21 11:56 Dose: 999 mls/hr Documented by: [id number] Calcium Gluconate () 1,000 mg in 60 mls @ 240 mls/hr IV NOW STA Stop: 10/15/21 12:14 Last Infusion: 10/15/21 12:28 Dose: 0 mls/hr Documented by: [id number] Admin: 10/15/21 12:13 Dose: 240 mls/hr Documented by: [id number] Calcium Gluconate () 1,000 mg in 60 mls @ 240 mls/hr IV NOW STA Stop: 10/15/21 12:14 Last Infusion: 10/15/21 13:00 Dose: 0 mls/hr Documented by: [id number] Admin: 10/15/21 12:29 Dose: 240 mls/hr Documented by: [id number] Sodium Chloride (Nss 1000ml) 1,000 mls @ 999 mls/hr IV .Q1H1M ONE Stop: 10/15/21 13:05 Last Infusion: 10/15/21 13:18 Dose: 0 mls/hr Documented by: [id number] Admin: 10/15/21 12:24 Dose: 999 mls/hr Documented by: [id number] Calcium Gluconate () 1,000 mg in 60 mls @ 240 mls/hr IV NOW STA Stop: 10/15/21 12:29 Last Infusion: 10/15/21 13:17 Dose: 0 mls/hr Documented by: [id number] Admin: 10/15/21 13:00 Dose: 240 mls/hr Documented by: [id number] Insulin Human Regular (Novolin-R Insulin Per Unit Charge) 10 units IV NOW STA Stop: 10/15/21 12:01 Last Admin: 10/15/21 12:20 Dose: 10 units Documented by: [id number] Cosigned by: [id number] Sodium Bicarbonate (Sodium Bicarb 8.4% Inj 50 Meq/50 Ml Syr) 150 meq IV NOW STA Stop: 10/15/21 12:01 Last Admin: 10/15/21 12:06 Dose: 150 meq Documented by: [id number] ECG Rate (beats per minute): 36 Rhythm: other (undetermined rhythm) Additional Comments: qtc 334ms COVID-19 Results Results COVID-19 Adm Lab Results: RBC 3.80 M/uL (4.2-5.4) L 10/15/21 WBC 3.71 K/uL (4.8-10.8) L 10/15/21 Hgb 11.1 g/dL (12.0-16.0) L 10/15/21 Hct 35.3 % (37-47) L 10/15/21 Plt Count 24 K/uL (130-400) L* 10/15/21 ANC 3.52 K/uL (1.4-6.5) 10/15/21 ALC 0.13 K/uL (1.2-3.4) L 10/15/21 Neutrophils % (Manual) 94.8 % 10/15/21 Lymphocytes % (Manual) 3.5 % 10/15/21 Monocytes % (Manual) 1.7 % 10/15/21 Neutrophils # (Manual) 3.52 K/uL (1.4-6.5) 10/15/21 Lymphocytes # (Manual) 0.13 K/uL (1.2-3.4) L 10/15/21 Monocytes # (Manual) 0.06 K/uL (0.11-0.59) L 10/15/21 Hyposegmented Neutrophils 1+ 10/15/21 Hypogranular Neutrophils 1+ 10/15/21 Giant Platelets 1+ 10/15/21 Na 133 mmol/L (136-145) L 10/15/21 K 8.5 mmol/L (3.5-5.1) H* 10/15/21 Cl 101 mmol/L (98-107) 10/15/21 CO2 26 mmol/L (21-32) 10/15/21 Anion Gap 6 (3-11) 10/15/21 BUN 43 mg/dl (6-23) H 10/15/21 Creatinine 1.57 mg/dl (0.6-1.2) H 10/15/21 BUN/Creatinine Ratio 27.4 (10-20) H 10/15/21 Glucose Level 282 mg/dl (70-99(Fasting)) H 10/15/21 Ca 8.8 mg/dl (8.5-10.1) 10/15/21 Total Bilirubin 1.8 mg/dl (0.2-1.0) H 10/15/21 AST/SGOT 16 U/L (13-39) 10/15/21 ALT/SGPT 21 U/L (7-52) 10/15/21 Alkaline Phosphatase 82 U/L (34-104) 10/15/21 Total Protein 6.2 gm/dl (6.0-8.3) 10/15/21 Albumin 3.8 gm/dl (3.4-5.0) 10/15/21 Globulin 2.4 gm/dl (2.5-4.0) L 10/15/21 Albumin/Globulin Ratio 1.6 (0.9-2) 10/15/21 SARS-CoV-2, RNA, NAAT NEGATIVE (NEGATIVE) 10/15/21 Chest X-Ray 10/15/21 Code Status & VTE Plan Code Status FULL CODE VTE Prophylaxis Plan VTE Prophylaxis will be ordered: No Supervising Physician Co-Signing Physician Notes Pt is a 81 y/o F with hx of IDDM, Afib (not on AC), Myelodysplastic syndrome with pancytopenia, HTN, Inflammatory arthritis, Spinal stenosis, hx of COVID pneumonia, hx of L breast Ca s/p lumpectomy and uterine cancer s/p BENSON, chronic prednisone use brought into the ER for bradycardia with recent excess intake of Cardizem (480mg dose) and hyperK+ Per pt she has not been taking her bumex properly. She was taking 2 mg of bumex instead of 4mg and continues to take 60 meq of KCl. At bedside: pt denied any CP, SOB, Palpitation, dizziness, or muscle twitching. She has not taken xarelto since SN[facility] discharge. She denied any gum bleeding, blood in the stool or dark stool. She did complained of easy bruising. PE: NAD, well developed HEENT: normal oropharynx Lungs: good air entry b/l, no crackles or wheezing Cards: in afib with systolic murmur Abd: obese abd, soft, NT MSK: b/l severe pitting edema of the LE Psych: AAOx3, normal affect A/P: HyperK+: -could be due to excess KCL intake with lower dose of bumex intake -pt is asymptomatic but she was bradycardic -s/p Ca++gluconate 3000mg, Bicarb, dextrose/Insulin 10 units, albuterol nebs, Veltassa 8.4g, and Lasix 80mg IV -repeating BMP in 1 hour after Lasix -will admit the pt to PCU Tele -BMP q 4hrs, hold KCL supplement - nephro consult - pt lives alone: she would benefit from a porter sample case consult for home resources on discharge (ex: home nursing or home care and home health aides teacher) -PT/OT Excess Cardizem dose (480mg ) with Bradycardia: -HR is improving and pt is asymptomatic -will hold both metoprolol and Cardizem -monitor HR on Tele -Cards consult Afib with pulm edema on CXR: -per pt she is not taking xarelto: likely due to thrombocytopenia -digoxin level is high (2.1) with shorter QTc -will hold digoxin for now -Echo to assess pulm edema -will continue home PO Bumex for now -admit PCU tele -repeat digoxin level tomorrow and EKG in the AM MDS with pancytopenia: -hgb is better than baseline -Plt is near her baseline -possible PLT transfusion if <10 -for now SCD for DVT PPX Elevated T bili: -has chronic elevated Tbili - if trending up then will get CT abd or Abd US IDDM: -will continue home insulin regimen Lumbar spinal stenosis on chronic prednisone + Seasonal allergy + GERD + Gout: -will continue prednisone with home meds DVT PPx: SCD FULL CODE Diet: Cardiac, Renal and DMII (1) Atrial fibrillation Atrial fibrillation type: unspecified Qualified Code(s): I48.91 - Unspecified atrial fibrillation (2) Hypertension Hypertension type: essential hypertension Qualified Code(s): I10 - Essential (primary) hypertension
[2021-10-15 14:51] LABS: iSTAT Blood Urea Nitrogen 44 mg/dl (7-18); iSTAT Carbon Dioxide 24 mmol/L (24-31); iSTAT Chloride 102 mmol/L (101-112); iSTAT Creatinine 1.5 mg/dl (0.6-1.3); iSTAT Glucose 296 mg/dl (70-99); iSTAT Hematocrit 33 % (37-47); iSTAT Hemoglobin 11.2 g/dl (12.0-16.0); iSTAT Ionized Calcium 1.13 mmol/l (1.12-1.32); iSTAT Potassium > 9.0 mmol/L (3.3-5.0); iSTAT Sodium 133 mmol/L (135-144)
[2021-10-15 16:07] LABS: Anion Gap 9 (3-11); BUN Creatinine Ratio 29.7 (10-20); Blood Urea Nitrogen 47 mg/dl (6-23); Calcium 9.4 mg/dl (8.5-10.1); Carbon Dioxide 29 mmol/L (21-32); Chloride 100 mmol/L (98-107); Est GFR (African American) 35.7 ml/min; Est GFR (Non-African American) 30.8 ml/min; Glucose 234 mg/dl (70-99(Fasting)); Potassium 4.4 mmol/L (3.5-5.1); Sodium 138 mmol/L (136-145); Troponin I High Sensitivity 18.9 pg/ml (0-14)
[2021-10-15] MEDS ORDERED: ONDANSETRON INJ 2 MG/ML 2 ML VIAL IV PRN (16:07)
[2021-10-15] MEDS ORDERED: GLUCOSE 40% GEL 15 GM TUBE PO PRN (16:07)
[2021-10-15] MEDS ORDERED: POLYETHYLENE (MIRALAX) 17 GM PACK PO PRN (16:07)
[2021-10-15] MEDS ORDERED: CARBOHYDRATES FOR HYPOGLYCEMIA PO PRN (16:07)
[2021-10-15] MEDS ORDERED: ACETAMINOPHEN 325 MG TAB PO PRN (16:07)
[2021-10-15] MEDS ORDERED: ALUMINUM/MAGNESIUM SUSP 30 ML UDC PO PRN (16:07)
[2021-10-15] MEDS ORDERED: GLUCAGON FOR INJ 1 MG VIAL SQ PRN (16:07)
[2021-10-15] MEDS ORDERED: PHARMACY GLYCEMIC MGMT CONSULT PRN (16:07)
[2021-10-15] MEDS ORDERED: DEXTROSE 50% 50 ML SYRINGE IV PRN (16:07)
[2021-10-15] MEDS ORDERED: GLUCOSE 10 TABS/TUBE PO PRN (16:07)
[2021-10-15] MEDS ORDERED: INSULIN HUMAN NPH SC SCH (17:15)
[2021-10-15] MEDS: INSULIN ASPART PER UNIT SC SCH ×3 (17:27→23:48)
[2021-10-15 18:38] LABS: BUN Creatinine Ratio 28.3 (10-20); Calcium 9.4 mg/dl (8.5-10.1); Creatinine Clr Calc Pharmacy 30.9 ml/min; Est GFR (African American) 35.4 ml/min; Est GFR (Non-African American) 30.6 ml/min; Potassium 4.5 mmol/L (3.5-5.1)
[2021-10-15] MEDS: BUMETANIDE 1 MG TAB PO SCH (20:27)
[2021-10-15] MEDS ORDERED: INSULIN HUMAN REGULAR PER UNIT 5 UNITS in SYRINGE 4.95 ML IV ONE (20:45)
[2021-10-15] MEDS ORDERED: INSULIN GLARGINE SOLOSTAR 100 UNITS/ML 3 ML PEN SC SCH (21:00)
[2021-10-15 23:22] LABS: BUN Creatinine Ratio 28.1 (10-20); Calcium 9.5 mg/dl (8.5-10.1); Creatinine Clr Calc Pharmacy 29.5 ml/min; Est GFR (African American) 33.4 ml/min; Est GFR (Non-African American) 28.8 ml/min; Potassium 4.2 mmol/L (3.5-5.1)
[2021-10-16] MEDS: traMADol HCL 50 MG TABLET PO PRN (01:18)
[2021-10-16] MEDS ORDERED: COUGH DROP (SUGAR FREE) LOZ 24 LOZ/1 BOX BUCCAL ONE (01:19)
[2021-10-16 02:35] LABS: Albumin Globulin Ratio 1.6 (0.9-2); Albumin Level 3.6 gm/dl (3.4-5.0); BUN Creatinine Ratio 28.6 (10-20); Bilirubin,Total 1.5 mg/dl (0.2-1.0); Calcium 9.4 mg/dl (8.5-10.1); Creatinine Clr Calc Pharmacy 30.5 ml/min; Est GFR (African American) 34.9 ml/min; Est GFR (Non-African American) 30.1 ml/min; Globulin 2.3 gm/dl (2.5-4.0); Magnesium 1.6 mg/dl (1.7-2.4); Potassium 4.3 mmol/L (3.5-5.1); Total Protein 5.9 gm/dl (6.0-8.3)
[2021-10-16 03:00] LABS: Hematocrit (blood only) 27.1 % (37-47); Hemoglobin 8.9 g/dL (12.0-16.0); Mean Corpuscular Hemoglobin 29.1 pg (25-34); Mean Corpuscular Hgb Conc 32.8 g/dL (32-36); Mean Corpuscular Volume 88.6 fL (80-100); Platelet Count 26 K/uL (130-400); RDW Coefficient of Variation 15.3 % (11.5-14.5); RDW Standard Deviation 48.9 fL (36.4-46.3); Red Blood Count 3.06 M/uL (4.2-5.4); White Blood Count 4.54 K/uL (4.8-10.8)
[2021-10-16 03:01] LABS: ALC (manual) 0.24 K/uL (1.2-3.4); ANC (manual) 4.15 K/uL (1.4-6.5); Giant Platelets 2+; Lymphocytes # (manual) 0.24 K/uL (1.2-3.4); Lymphocytes % (manual) 5.2 %; Monocytes # (manual) 0.16 K/uL (0.11-0.59); Monocytes % (manual) 3.5 %; Neutrophils # (manual) 4.15 K/uL (1.4-6.5); Neutrophils % (manual) 91.3 %; Platelet Estimate SIGNIFIC DECREASED (Normal)
[2021-10-16] MEDS: INSULIN ASPART PER UNIT SC SCH ×5 (04:24→20:28)
[2021-10-16 06:36] LABS: BUN Creatinine Ratio 29.4 (10-20); Est GFR (African American) 35.2 ml/min; Est GFR (Non-African American) 30.3 ml/min
[2021-10-16 07:18] LABS: Estimated Average Glucose 160 mg/dl; Hemoglobin A1C 7.2 % (4.5-5.6)
[2021-10-16] MEDS ORDERED: INSULIN HUMAN NPH SC SCH (08:00)
[2021-10-16] MEDS: INSULIN HUMAN NPH SC SCH ×2 (08:28→16:50)
[2021-10-16] MEDS: predniSONE 5 MG TAB PO SCH (08:30)
[2021-10-16] MEDS: BUMETANIDE 1 MG TAB PO SCH ×2 (08:30→21:52)
[2021-10-16] MEDS: LORATADINE 10 MG TAB PO SCH (08:30)
[2021-10-16] MEDS: ESCITALOPRAM OXALATE 10 MG TAB PO SCH (08:30)
[2021-10-16] MEDS: allopurinoL 300 MG TAB PO SCH (08:31)
[2021-10-16] MEDS: PANTOprazole 40 MG TAB PO SCH (08:31)
[2021-10-16 10:50] LABS: BUN Creatinine Ratio 29.6 (10-20); Calcium 9.3 mg/dl (8.5-10.1); Creatinine Clr Calc Pharmacy 30.2 ml/min; Est GFR (African American) 35.4 ml/min; Est GFR (Non-African American) 30.6 ml/min; Potassium 3.7 mmol/L (3.5-5.1)
--- NOTE | 2021-10-16 11:02 | Cardiology Consultation ---
Date of Consultation October 16, 2021 Assessment & Plan (1) Bradycardia: (2) Atrial fibrillation: (3) Valvular heart disease: (4) Elevated troponin I level: 1. Bradycardia: Improving. Likely a combination of her hyperkalemia and perhaps additional doses of diltiazem. The patient states that her medications were adjusted at rehab after her last discharge. However, it seems that her medications have not changed in the list obtained at admission. She thought that her metoprolol have been discontinued. Review of her heart rates during her last admission suggests that she may not need as aggressive rate control for her atrial fibrillation. I think her digoxin can be stopped entire ly. I would continue to hold metoprolol. I would consider Re initiating her usual outpatient diltiazem dose of 240 milligrams daily after 24 hours. 2. Atrial fibrillation: No overt symptoms. She was on systemic anticoagulation with Xarelto. Again, this appears to have been stopped at some point. There is no clear record of this in her medical chart. However, this could have occurred during her stay at rehab. 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 Although, there is no evidence of active bleeding. From a cardiac standpoint she would benefit from continuing anticoag ulation although Xarelto appears to be a poor option given her degree of renal dysfunction. She would be a candidate for full dose apixaban at 5 milligrams twice daily or switch to warfarin. However, I think any decision regarding resumption of anticoagulation could be deferred to her admissions dean. 3. Valvular heart disease: Unchanged from her last echocardiogram. Do not believe this is causing significant symptoms. Overall LV systolic function is normal. She is not appear to be a good candidate for any valve intervention. 4. Elevated troponin: Very mild elevation in the setting of severe anemia, electrolyte disturbance and bradycardia. I do not think this is service support representative of an acute coronary syndrome. Echocardiogram demonstrates preserved LV systolic function without regional wall motion abnormality.Do not believe she requires any additional evaluation in this regard. History of Present Illness Reason for Consultation: hyperkalemia, bradycardia Requesting Physician: Stephon Attending Physician: Sina Gonzalez MD History of Present Illness the patient is a 81-year-old woman with a history of permanent atrial fibrillation who was sent to the emergency room for bradycardia. Patient also has a mild proliferative disorder which results and significant anemia. She requires frequent transfusions. She was obtaining a routine transfusion when she was noted to be bradycardic. She was sent to the emergency room where she was also found to have severe hyperkalemia. The patient did not report any specific symptoms. She claims to have had a "very busy" week. This week was filled with doctor's appointments and treatments. As result, she has had some difficulty managing her medications. She admits to missing a few doses of her diuretic recently. She often times does not get sleep due to frequent urination at nighttime. However, she did continue to take her potassium supplementation. She also reports mistakenly taking an extra dose of diltiazem yesterday morning. She generally ambulates with a walker. She did not report any worsening dyspnea recently. She did not report dizziness or lightheadedness. No episodes of syncope. Over the past day or 2 she has noted more palpitations. This seems to be improved this morning. Currently the patient is feeling well. She did not sleep well last evening due to his sense of palpitation. However, she did not report any dyspnea currently. She has been ambulatory with her wheeled walker to the bathroom. Allergies Allergy/AdvReac Type Severity Reaction Status Date / Time hydrocodone Allergy Mild UNKNOWN Verified 10/15/21 07:39 "HAPPENED LONG TIME AGO" phenol Allergy Mild LOCALIZED Verified 10/15/21 07:39 RASH AT INJECTION SITE protamine Allergy Mild LOCALIZED Verified 10/15/21 07:39 RASH AT INJECTION SITE sodium phosphate Allergy Mild LOCALIZED Verified 10/15/21 07:39 RASH AT INJECTION SITE zinc Allergy Mild LOCALIZED Verified 10/15/21 07:39 RASH AT INJECTION SITE hydroxychloroquine AdvReac Mild "BURPED Verified 10/15/21 07:39 FOR DAYS AND TORE MY STOMACH UP" Home Medications Medication Instructions Recorded Confirmed Type allopurinol 300 mg tablet 300 mg PO DAILY 10/15/21 10/15/21 History bumetanide 1 mg tablet 2 mg PO BID 10/15/21 10/15/21 History digoxin 125 mcg (0.125 mg) tablet 125 mcg PO DAILY 10/15/21 10/15/21 History diltiazem HCl 240 mg 240 mg PO DAILY 10/15/21 10/15/21 History capsule,extended release 24 hr escitalopram oxalate 10 mg tablet 10 mg PO DAILY 10/15/21 10/15/21 History insulin NPH isoph U-100 human 100 24 unit SUBCUT DAILYBD 10/15/21 10/15/21 History unit/mL (3 mL) subcutaneous pen insulin NPH isoph U-100 human 100 34 unit SUBCUT DAILYBB 10/15/21 10/15/21 History unit/mL (3 mL) subcutaneous pen loratadine 10 mg tablet 10 mg PO DAILY 10/15/21 10/15/21 History metoprolol tartrate 50 mg tablet 50 mg PO DAILY 10/15/21 10/15/21 History potassium chloride 10 mEq 30 meq PO BID 10/15/21 10/15/21 History tablet,extended release prednisone 5 mg tablet 5 mg PO DAILY 10/15/21 10/15/21 History rabeprazole 20 mg tablet,delayed 20 mg PO DAILY 10/15/21 10/15/21 History release tramadol 50 mg tablet 50 mg PO Q6H PRN 10/15/21 10/15/21 History Patient History Medical History (Updated 10/15/21 @ 15:49 by Yousuf Mortensen DO) A-fib Acute hypokalemia CKD (chronic kidney disease) stage 3, GFR 30-59 ml/min Diabetes Elevated troponin I level GI bleed Hx of pneumococcal pneumonia Hypertension Hypomagnesemia IDDM (insulin dependent diabetes mellitus) Inflammatory arthritis Malignant neoplasm of central portion of female breast (10/01/11) "Left breast pain Finding of a left breast mass Status post biopsy revealing infiltrating ductal carcinoma Status post partial mastectomy and sentinel lymph node biopsy Pathologic stage [id number] Estrogen receptor positive, progesterone receptor positive, HER-2/abelardo negative Status post completion of radiation therapy 04/08/2012 received 6120 cGy" Surgical History History of hysterectomy History of lumpectomy Hx of cholecystectomy Family History Other Cancer Diabetes Social History Smoking Status: Never smoker Hx Alcohol Use: No Hx Substance Use: No Preferred Language: Mauritanian Communication Ability: Effective Floor Scrubber Required: No Beliefs That Will Affect Care: None Current Living Situation: Alone Other Information That Helps Us Care for You: No Feels Safe at Home: Yes Safety Concerns: Feels Safe At This Time Assistive Devices: Walker Review of Systems Review of Systems: Per HPI. Eating and drinking normally. No abdominal complaints. Physical Exam Physical Exam: She is alert and oriented x3. Mood affect appear normal. She answered all questions appropriately. HEENT: Sclerae are anicteric. Pupils are equal and reactive to light and accommodation. Extraocular movements were intact. Neuro: Cranial nerves intact Lungs: Lungs are clear to auscultation bilaterally. There are no rales wheezes or rhonchi. She has normal respiratory effort without use of accessory muscles. There is normal pulmonary excursion. Cardiac: The rhythm was irregular. S1 and S2 were normal. Crescendo systolic murmur. The PMI was not markedly displaced on palpation. Abdomen: The abdomen was soft and nontender. Extremities: Patient has bilateral radial pulses that are equal in intensity. There is no evidence cyanosis or clubbing. Skin: There are no rashes noted on examination today. Results & Data ([facility]) Vital Signs (Past 12 Hours) Vital Signs Temp Pulse Pulse Resp BP Pulse Ox 10/16/21 07:45 56 L 10/16/21 07:38 36.8 C 62 22 129/69 91 10/16/21 04:00 37 C 64 16 121/62 92 Laboratory Results Abnormal Lab Results 10/15/21 10/15/21 10/15/21 11:55 11:55 11:55 WBC 3.71 L RBC 3.80 L Hgb 11.1 L D POC Hgb Hct 35.3 L POC Hct MCV 92.9 MCH 29.2 MCHC 31.4 L RDW Std Deviation 50.2 H RDW Coeff of Griffin 15.1 H Plt Count 24 L* Neutrophils % (Manual) 94.8 Lymphocytes % (Manual) 3.5 Monocytes % (Manual) 1.7 Neutrophils # (Manual) 3.52 Total Absolute Neuts 3.52 Lymphocytes # (Manual) 0.13 L Total Abs Lymphocytes 0.13 L Monocytes # (Manual) 0.06 L Hyposegmented Neuts 1+ Hypogranular Neuts 1+ Platelet Estimate SIGNIFIC DECREASED Giant Platelets 1+ POC Sodium Sodium 133 L POC Potassium Potassium 8.5 H* D POC Chloride Chloride 101 Carbon Dioxide 26 POC Total CO2 Anion Gap 6 POC Anion Gap POC BUN BUN 43 H Creatinine 1.57 H POC Creatinine Est Cr Clr Drug Dosing Not Reportable Est GFR ( Amer) 36.0 Est GFR (Non-Af Amer) 31.0 BUN/Creatinine Ratio 27.4 H Glucose 282 H POC Glucose POC Glucose (other) Estimat Average Glucose Hemoglobin A1c Calcium 8.8 POC Ioniz Calcium Bekah Magnesium Total Bilirubin 1.8 H AST 16 ALT 21 Alkaline Phosphatase 82 Troponin I High Sens 18.6 H Total Protein 6.2 Albumin 3.8 Globulin 2.4 L Albumin/Globulin Ratio 1.6 Lipase 7 L Digoxin SARS-CoV-2, RNA, NAAT 10/15/21 10/15/21 10/15/21 11:55 11:59 12:00 WBC RBC Hgb POC Hgb 11.2 L Hct POC Hct 33 L MCV MCH MCHC RDW Std Deviation RDW Coeff of Griffin Plt Count Neutrophils % (Manual) Lymphocytes % (Manual) Monocytes % (Manual) Neutrophils # (Manual) Total Absolute Neuts Lymphocytes # (Manual) Total Abs Lymphocytes Monocytes # (Manual) Hyposegmented Neuts Hypogranular Neuts Platelet Estimate Giant Platelets POC Sodium 133 L Sodium POC Potassium > 9.0 H* Potassium POC Chloride 102 Chloride Carbon Dioxide POC Total CO2 24 Anion Gap POC Anion Gap TNP POC BUN 44 H BUN Creatinine POC Creatinine 1.5 H Est Cr Clr Drug Dosing Est GFR ( Amer) Est GFR (Non-Af Amer) BUN/Creatinine Ratio Glucose POC Glucose POC Glucose (other) 296 H Estimat Average Glucose Hemoglobin A1c Calcium POC Ioniz Calcium Bekah 1.13 Magnesium Total Bilirubin AST ALT Alkaline Phosphatase Troponin I High Sens Total Protein Albumin Globulin Albumin/Globulin Ratio Lipase Digoxin 2.1 H SARS-CoV-2, RNA, NAAT NEGATIVE 10/15/21 10/15/21 10/15/21 13:55 14:42 16:14 WBC RBC Hgb POC Hgb Hct POC Hct MCV MCH MCHC RDW Std Deviation RDW Coeff of Griffin Plt Count Neutrophils % (Manual) Lymphocytes % (Manual) Monocytes % (Manual) Neutrophils # (Manual) Total Absolute Neuts Lymphocytes # (Manual) Total Abs Lymphocytes Monocytes # (Manual) Hyposegmented Neuts Hypogranular Neuts Platelet Estimate Giant Platelets POC Sodium Sodium 138 POC Potassium Potassium 4.4 D POC Chloride Chloride 100 Carbon Dioxide 29 POC Total CO2 Anion Gap 9 POC Anion Gap POC BUN BUN 47 H Creatinine 1.58 H POC Creatinine Est Cr Clr Drug Dosing Not Reportable Est GFR ( Amer) 35.7 Est GFR (Non-Af Amer) 30.8 BUN/Creatinine Ratio 29.7 H Glucose 234 H POC Glucose 290 H POC Glucose (other) Estimat Average Glucose Hemoglobin A1c Calcium 9.4 POC Ioniz Calcium Bekah Magnesium Total Bilirubin AST ALT Alkaline Phosphatase Troponin I High Sens Cancelled 18.9 H Total Protein Albumin Globulin Albumin/Globulin Ratio Lipase Digoxin SARS-CoV-2, RNA, NAAT 10/15/21 10/15/21 10/15/21 18:00 20:25 22:45 WBC RBC Hgb POC Hgb Hct POC Hct MCV MCH MCHC RDW Std Deviation RDW Coeff of Griffin Plt Count Neutrophils % (Manual) Lymphocytes % (Manual) Monocytes % (Manual) Neutrophils # (Manual) Total Absolute Neuts Lymphocytes # (Manual) Total Abs Lymphocytes Monocytes # (Manual) Hyposegmented Neuts Hypogranular Neuts Platelet Estimate Giant Platelets POC Sodium Sodium 136 137 POC Potassium Potassium 4.5 4.2 POC Chloride Chloride 98 97 L Carbon Dioxide 27 30 POC Total CO2 Anion Gap 11 10 POC Anion Gap POC BUN BUN 45 H 47 H Creatinine 1.59 H 1.67 H POC Creatinine Est Cr Clr Drug Dosing 30.9 29.5 Est GFR ( Amer) 35.4 33.4 Est GFR (Non-Af Amer) 30.6 28.8 BUN/Creatinine Ratio 28.3 H 28.1 H Glucose 301 H* 186 H POC Glucose 293 H POC Glucose (other) Estimat Average Glucose Hemoglobin A1c Calcium 9.4 9.5 POC Ioniz Calcium Bekah Magnesium Total Bilirubin AST ALT Alkaline Phosphatase Troponin I High Sens Total Protein Albumin Globulin Albumin/Globulin Ratio Lipase Digoxin SARS-CoV-2, RNA, NAAT 10/15/21 10/16/21 10/16/21 23:45 01:57 01:57 WBC 4.54 L RBC 3.06 L Hgb 8.9 L POC Hgb Hct 27.1 L POC Hct MCV 88.6 MCH 29.1 MCHC 32.8 RDW Std Deviation 48.9 H RDW Coeff of Griffin 15.3 H Plt Count 26 L* Neutrophils % (Manual) 91.3 Lymphocytes % (Manual) 5.2 Monocytes % (Manual) 3.5 Neutrophils # (Manual) 4.15 Total Absolute Neuts 4.15 Lymphocytes # (Manual) 0.24 L Total Abs Lymphocytes 0.24 L Monocytes # (Manual) 0.16 Hyposegmented Neuts Hypogranular Neuts Platelet Estimate SIGNIFIC DECREASED Giant Platelets 2+ POC Sodium Sodium Cancelled POC Potassium Potassium Cancelled POC Chloride Chloride Cancelled Carbon Dioxide Cancelled POC Total CO2 Anion Gap Cancelled POC Anion Gap POC BUN BUN Cancelled Creatinine Cancelled POC Creatinine Est Cr Clr Drug Dosing Cancelled Est GFR ( Amer) Cancelled Est GFR (Non-Af Amer) Cancelled BUN/Creatinine Ratio Cancelled Glucose Cancelled POC Glucose 178 H POC Glucose (other) Estimat Average Glucose Hemoglobin A1c Calcium Cancelled POC Ioniz Calcium Bekah Magnesium Total Bilirubin AST ALT Alkaline Phosphatase Troponin I High Sens Total Protein Albumin Globulin Albumin/Globulin Ratio Lipase Digoxin SARS-CoV-2, RNA, NAAT 10/16/21 10/16/21 10/16/21 01:57 01:57 01:57 WBC RBC Hgb POC Hgb Hct POC Hct MCV MCH MCHC RDW Std Deviation RDW Coeff of Griffin Plt Count Neutrophils % (Manual) Lymphocytes % (Manual) Monocytes % (Manual) Neutrophils # (Manual) Total Absolute Neuts Lymphocytes # (Manual) Total Abs Lymphocytes Monocytes # (Manual) Hyposegmented Neuts Hypogranular Neuts Platelet Estimate Giant Platelets POC Sodium Sodium 137 POC Potassium Potassium 4.3 POC Chloride Chloride 97 L Carbon Dioxide 33 H POC Total CO2 Anion Gap 7 POC Anion Gap POC BUN BUN 46 H Creatinine 1.61 H POC Creatinine Est Cr Clr Drug Dosing 30.5 Est GFR ( Amer) 34.9 Est GFR (Non-Af Amer) 30.1 BUN/Creatinine Ratio 28.6 H Glucose 146 H POC Glucose POC Glucose (other) Estimat Average Glucose 160 Hemoglobin A1c 7.2 H Calcium 9.4 POC Ioniz Calcium Bekah Magnesium 1.6 L Total Bilirubin 1.5 H AST 21 ALT 41 Alkaline Phosphatase 87 Troponin I High Sens Total Protein 5.9 L Albumin 3.6 Globulin 2.3 L Albumin/Globulin Ratio 1.6 Lipase Digoxin 1.1 SARS-CoV-2, RNA, NAAT 10/16/21 10/16/21 10/16/21 04:21 05:50 07:22 WBC RBC Hgb POC Hgb Hct POC Hct MCV MCH MCHC RDW Std Deviation RDW Coeff of Griffin Plt Count Neutrophils % (Manual) Lymphocytes % (Manual) Monocytes % (Manual) Neutrophils # (Manual) Total Absolute Neuts Lymphocytes # (Manual) Total Abs Lymphocytes Monocytes # (Manual) Hyposegmented Neuts Hypogranular Neuts Platelet Estimate Giant Platelets POC Sodium Sodium 138 POC Potassium Potassium POC Chloride Chloride 99 Carbon Dioxide 30 POC Total CO2 Anion Gap 9 POC Anion Gap POC BUN BUN 47 H Creatinine 1.60 H POC Creatinine Est Cr Clr Drug Dosing 30.0 Est GFR ( Amer) 35.2 Est GFR (Non-Af Amer) 30.3 BUN/Creatinine Ratio 29.4 H Glucose 158 H POC Glucose 166 H 177 H POC Glucose (other) Estimat Average Glucose Hemoglobin A1c Calcium 9.0 POC Ioniz Calcium Bekah Magnesium Total Bilirubin AST ALT Alkaline Phosphatase Troponin I High Sens Total Protein Albumin Globulin Albumin/Globulin Ratio Lipase Digoxin SARS-CoV-2, RNA, NAAT 10/16/21 10/16/21 07:41 10:09 WBC RBC Hgb POC Hgb Hct POC Hct MCV MCH MCHC RDW Std Deviation RDW Coeff of Griffin Plt Count Neutrophils % (Manual) Lymphocytes % (Manual) Monocytes % (Manual) Neutrophils # (Manual) Total Absolute Neuts Lymphocytes # (Manual) Total Abs Lymphocytes Monocytes # (Manual) Hyposegmented Neuts Hypogranular Neuts Platelet Estimate Giant Platelets POC Sodium Sodium 137 POC Potassium Potassium 4.0 3.7 POC Chloride Chloride 97 L Carbon Dioxide 29 POC Total CO2 Anion Gap 11 POC Anion Gap POC BUN BUN 47 H Creatinine 1.59 H POC Creatinine Est Cr Clr Drug Dosing 30.2 Est GFR ( Amer) 35.4 Est GFR (Non-Af Amer) 30.6 BUN/Creatinine Ratio 29.6 H Glucose 208 H POC Glucose POC Glucose (other) Estimat Average Glucose Hemoglobin A1c Calcium 9.3 POC Ioniz Calcium Bekah Magnesium Total Bilirubin AST ALT Alkaline Phosphatase Troponin I High Sens Total Protein Albumin Globulin Albumin/Globulin Ratio Lipase Digoxin SARS-CoV-2, RNA, NAAT Diagnostic Findings echocardiogram performed 10/15/2021: Normal LV systolic function with ejection fraction of 60-65 percent. Severe left atrial dilation. Mild LVH. Aortic valve sclerosis without stenosis. Mild aortic regurgitation. Mild to moderate mitral regurgitation. Elevated pulmonary systolic pressures. Chest x-ray obtained on 10/15/2021: Cardiomegaly with pulmonary edema. Bilateral pleural effusions. Unchanged from prior study. PG Care Time/CCT Total # of Minutes Spent Total Time Spent with Patient: Total time spent is greater than 50% in coordination of care (as documented) at patient's floor/unit and/or counseling patient: Coding Level of Care Code 91336 Initial Inpt Care Lvl 3 Diagnoses Bradycardia R00.1 Atrial fibrillation I48.91 Atrial fibrillation type: unspecified Valvular heart disease I38 Elevated troponin I level R77.8 (1) Atrial fibrillation Atrial fibrillation type: unspecified Qualified Code(s): I48.91 - Unspecified atrial fibrillation
--- NOTE | 2021-10-16 11:12 | Consultation Report ---
NEPHROLOGY CONSULTATION NOTE DATE OF SERVICE: 10/16/2021. REASON FOR CONSULTATION: Extreme hyperkalemia. HISTORY OF PRESENT ILLNESS: The patient is a 81-year-old female who presented to the hospital yesterday after she noted that she took extra Cardizem yesterday and her heart rate was very low while she was at the [facility] getting blood transfusion. The patient has type 2 diabetes, atrial fibrillation, myelodysplastic syndrome with chronic pancytopenia, hypertension, hyperlipidemia, history of breast and uterine cancer, history of COVID recently. She was brought to the Emergency Department after she was found to have bradycardia at [facility] while she was getting blood transfusion. She only had 1 unit of blood before she was brought to the Emergency. Her heart rate was found to be in the 30s. She took an extra dose of Cardizem yesterday morning equal to 480 mg on top of her metoprolol and digoxin. She was also not taking her Bumex last few days, but she was still taking her potassium. In the emergency, her initial potassium was found to be more than 9 and the repeat, and the full BMP was also more than 8. She was aggressively managed for hyperkalemia management including IV insulin, dextrose, IV Lasix, nebulizer, bicarbonate drip, calcium gluconate. With all the management, her heart rate improved as well as her potassium and at this point, she has normal potassium. Currently, she is undergoing chemotherapy through [facility] oncologist, Dr. Barrientos. She was actually due for chemotherapy yesterday. She has baseline CKD with a creatinine at baseline around 1.5. Her current creatinine is pretty close to baseline at 1.6, potassium this morning was completely normal at 4. PAST MEDICAL AND SURGICAL HISTORY: As reviewed in H and P, as well as a history of atrial fibrillation, history of hypokalemia, chronic kidney disease stage III, baseline creatinine around 1.5, type 2 diabetes, history of GI bleed, history of pneumococcal pneumonia, history of COVID pneumonia, hypertension, history of low magnesium, history of breast cancer, uterine cancer, currently undergoing chemotherapy, hysterectomy, lumpectomy, cholecystectomy. ALLERGIES: List reviewed and is as per the H and P. MEDICATIONS: Home medication list was reviewed in detail and includes allopurinol, Bumex 2 mg twice daily, which she was not taking for the last few days, digoxin, diltiazem, Lexapro, insulin, loratadine, metoprolol, potassium 30 twice daily, prednisone 5 daily, rabeprazole 20 daily, tramadol 50 as needed every 6 hours. FAMILY HISTORY: Positive for cancer and diabetes. SOCIAL HISTORY: Never smoked. No alcohol. She is currently living alone. She feels safe at home and uses walker for ambulation. Her daughter is her closest family member. REVIEW OF SYSTEMS: As detailed in HPI; unless stated otherwise, 12 systems reviewed and negative. Positive review of systems included increasing fatigue for the last few days and poor appetite. PHYSICAL EXAMINATION: GENERAL: Elderly white female who is not in any respiratory distress at this time. She is awake, alert, oriented x3, able to give a detailed account of her medical history. HEENT: Mucous membranes are moist. NECK: Supple. No jugular venous distention. VITAL SIGNS: Blood pressure is 129/69, pulse rate 56, temperature 36.8, 91% on room air. CHEST: Bilaterally clear to auscultation. CARDIOVASCULAR: S1 and S2, regular. ABDOMEN: Soft, nontender. EXTREMITIES: Show no edema. LABORATORY TEST: Blood work from this morning shows sodium 138, potassium 4.0, creatinine 1.6, BUN is 47. However, she did have a potassium of 8.5 yesterday on the BMP, but it promptly dropped to normal within a few hours after medical management. Hemoglobin 8.9, WBC count 4.5, platelet count 26. Chest x-ray shows cardiomegaly with pulmonary edema, right greater than left pleural effusion. ASSESSMENT AND PLAN: This is a 81-year-old female who was sent over to the Emergency Department because of bradycardia noted while she was getting blood transfusion at the [facility]. I have been consulted for hyperkalemia. Hyperkalemia this was multifactorial in etiology secondary to significant bradycardia she had secondary to extra dose of Cardizem. It is worth noting that bradycardia can cause hyperkalemia and hyperkalemia can also cause bradycardia. It is hard to know which came first, but regardless, both her heart rate and potassium is normal at this point. She was also taking the potassium supplement, but was not taking the Bumex as prescribed. This also caused imbalance. She does have evidence of pulmonary edema and does need diuretics. RECOMMENDATIONS: 1. Restart her home dose of Bumex. 2. Hold potassium supplement for the time being. 3. Full interrogation regarding her heart rate issue. As stated earlier bradycardia can cause a very critical hyperkalemia in a relatively short period of time. We will defer this to Cardiology. 4. She has CKD and her current creatinine is pretty close to her baseline and no further workup is needed for this. Given that she had a profound bradycardia yesterday for a prolonged period of time, it is quite possible there might be some rise in her creatinine in the coming days, but it should settle down relatively quick. Thank you very much for the consult. Job ID: [id number] ARTIE
[2021-10-16] MEDS: MAGNESIUM HYDROXIDE SUSP 30 ML UDC PO PRN (12:48)
--- NOTE | 2021-10-16 15:07 | Pharmacy Report ---
Pharmacy Glycemic Short Note 2 - Date of Service October 16, 2021 - Glycemic Short BSG Results (Last 24 hours): 10/15/21 10/15/21 10/15/21 14:42 16:14 18:00 Glucose 234 H 301 H* POC Glucose 290 H 10/15/21 10/15/21 10/15/21 20:25 22:45 23:45 Glucose 186 H POC Glucose 293 H 178 H 10/16/21 10/16/21 10/16/21 01:57 01:57 04:21 Glucose Cancelled 146 H POC Glucose 166 H 10/16/21 10/16/21 10/16/21 05:50 07:22 10:09 Glucose 158 H 208 H POC Glucose 177 H 10/16/21 11:20 Glucose POC Glucose 213 H OUTPATIENT ANTIDIABETIC REGIMEN: * NPH 34 units Qam, 24 units with dinner ASSESSMENT: * 81 year old female admitted with bradycardia. Type 2 diabetic managed on NPH at home. Known to glycemic service from other admissions * Will plan to utilize similar parameters for insulin from 07/2021 hospitalization PLAN FOR INPATIENT GLYCEMIC CONTROL: * Hold outpatient oral diabetes medications * Basal insulin * NPH 30 units Qam * NPH 20 units with dinner * Bolus insulin * NovoLog per scale ACHS or Q6hrs while NPO * Goal Range: Low 110 mg/dL - High 140 mg/dL * Correction Factor: 25 mg/dL/unit * Nutritional / Prandial insulin per carb ratio of 1 unit per 8 grams CHO consumed
[2021-10-16 15:30] LABS: BUN Creatinine Ratio 27.2 (10-20); Calcium 9.4 mg/dl (8.5-10.1); Creatinine Clr Calc Pharmacy 27.7 ml/min; Est GFR (Non-African American) 27.6 ml/min; Potassium 3.5 mmol/L (3.5-5.1)
--- NOTE | 2021-10-16 17:36 | Hospitalist Progress Note ---
Date of Service October 16, 2021 Assessment & Plan (1) Hyperkalemia: (2) Bradycardia on ECG: (3) Calcium channel elvin overdose: (4) Myelodysplastic syndrome with 5 q minus: (5) Pancytopenia: (6) Atrial fibrillation: (7) Elevated bilirubin: (8) Hypertension: (9) CKD (chronic kidney disease) stage 3, GFR 30-59 ml/min: (10) Inflammatory arthritis: (11) IDDM (insulin dependent diabetes mellitus): Plan: Please refer to Dr. Gonzalez addendum to assessment and plan. As per H and P: 81 y/o F with hx of IDDM, Afib (not on AC), Myelodysplastic syndrome with pancytopenia, HTN, Inflammatory arthritis, Spinal stenosis, hx of COVID pneumonia, hx of L breast Ca s/p lumpectomy and uterine cancer s/p BENSON, chronic prednisone use admitted for hyperkalemia with Bradycardia and Cardizem overdose. HyperK+: Seems patient was taking KCL intake with not taking her bumex.As per Nephrology also bradycardia can cause hyperkalemia. s/p Ca++gluconate 3000mg, Bicarb, dextrose/Insulin 10 units, albuterol nebs, Eric tassa 8.4g, and Lasix 80mg IV Today K 3.7 continue bumex. holding kcl tablets Excess Cardizem dose (480mg ) with Bradycardia: holding both metoprolol and Cardizem and digoxin Improving Cardiology recommends to start Cardizem 240mg daily tomorrow and to stop metoprolol and digoxin Afib with pulm edema on CXR: Not taking xarelto: Most likely due to thrombocytopenia digoxin level is high (2.1) with shorter QTc on presentation Holding dixgoxin to continue home PO Bumex Digoxin is 1.1 today follow in tele VAlvular heart disease chronic diastolic chf continue bumex MDS with pancytopenia: hgb is better than baseline Plt is near her baseline PLT transfusion if <10 Elevated T bili: has chronic elevated Tbili if trending up then will get CT abd or Abd US IDDM: home insulin regimen Will monitor Lumbar spinal stenosis on chronic prednisone + Seasonal allergy + GERD + Gout: To continue home prednisone DVT PPx: SCD FULL CODE Diet: Cardiac, Renal and DMII Admission and Anticipated Discharge Date Admission Date: October 15, 2021 Subjective resting comfortably has some nausea constipated denies any chest pain didnot sleep well micturated a lot no sob ambulated in room ok Review of Systems Review of Systems: All systems reviewed & are unremarkable except as noted in Subjective Physical Exam Constitutional: WD/WN, vitals as above ENMT: external ear and nose normal, oropharynx normal Neck: trachea midline, no thyromegaly Respiratory: normal respiratory effort, lungs clear to auscultation Cardiovascular: RRR, no murmur, no edema Gastrointestinal (Abdomen): normal bowel sounds, soft, nontender, no hepatosplenomegaly Neurologic: Speech clear, no facial palsy, Obeys commands, Moves extremities Psychiatric: A+Ox3, euthymic affect Results & Data Results & Data ([facility]) Vital Signs (Past 12 Hours) Vital Signs Temp Pulse Pulse Resp BP Pulse Ox 10/16/21 15:28 36.7 C 77 22 146/65 H 97 10/16/21 11:31 36.7 C 97 H 18 122/62 98 10/16/21 07:45 56 L 10/16/21 07:38 36.8 C 62 22 129/69 91 (1) Atrial fibrillation Atrial fibrillation type: unspecified Qualified Code(s): I48.91 - Unspecified atrial fibrillation (2) Hypertension Hypertension type: essential hypertension Qualified Code(s): I10 - Essential (primary) hypertension
[2021-10-16 19:35] LABS: BUN Creatinine Ratio 28.7 (10-20); Calcium 9.1 mg/dl (8.5-10.1); Creatinine Clr Calc Pharmacy 29.2 ml/min; Est GFR (African American) 34.1 ml/min; Est GFR (Non-African American) 29.4 ml/min; Potassium 3.8 mmol/L (3.5-5.1)
[2021-10-16 23:36] LABS: BUN Creatinine Ratio 29.6 (10-20); Calcium 9.1 mg/dl (8.5-10.1); Creatinine Clr Calc Pharmacy 30.2 ml/min; Est GFR (African American) 35.4 ml/min; Est GFR (Non-African American) 30.6 ml/min; Potassium 3.5 mmol/L (3.5-5.1)
[2021-10-17 08:34] LABS: BUN Creatinine Ratio 28.3 (10-20); Calcium 9.1 mg/dl (8.5-10.1); Creatinine Clr Calc Pharmacy 33.1 ml/min; Est GFR (African American) 39.6 ml/min; Est GFR (Non-African American) 34.2 ml/min; Magnesium 1.8 mg/dl (1.7-2.4); Potassium 3.4 mmol/L (3.5-5.1)
[2021-10-17 08:50] LABS: Hematocrit (blood only) 29.1 % (37-47); Hemoglobin 9.4 g/dL (12.0-16.0); Mean Corpuscular Hgb Conc 32.3 g/dL (32-36); Mean Corpuscular Volume 89.8 fL (80-100); Platelet Count 26 K/uL (130-400); RDW Coefficient of Variation 15.2 % (11.5-14.5); RDW Standard Deviation 48.7 fL (36.4-46.3); Red Blood Count 3.24 M/uL (4.2-5.4); White Blood Count 5.45 K/uL (4.8-10.8)
[2021-10-17 08:51] LABS: ALC (manual) 0.47 K/uL (1.2-3.4); ANC (manual) 4.64 K/uL (1.4-6.5); Eosinophils # (manual) 0.05 K/uL (0-0.5); Eosinophils % (manual) 0.9 %; Giant Platelets 1+; Hypogranular Neutrophils 1+; Lymphocytes # (manual) 0.47 K/uL (1.2-3.4); Lymphocytes % (manual) 8.7 %; Monocytes # (manual) 0.28 K/uL (0.11-0.59); Monocytes % (manual) 5.2 %; Neutrophils # (manual) 4.64 K/uL (1.4-6.5); Neutrophils % (manual) 85.2 %; Platelet Estimate SIGNIFIC DECREASED (Normal)
--- NOTE | 2021-10-17 08:57 | Electrocardiogram Report ---
Test Reason : Blood Pressure : / mmHG Vent. Rate : 036 BPM Atrial Rate : 036 BPM P-R Int : 000 ms QRS Dur : 072 ms QT Int : 432 ms P-R-T Axes : 000 058 092 degrees QTc Int : 334 ms Poor data quality, interpretation may be adversely affected Poor data quality, interpretation may be adversely affected Atrial fibrillation Low voltage QRS Cannot rule out Anteroseptal infarct (cited on or before 23-APR-2020) Abnormal ECG When compared with ECG of 02-AUG-2021 18:37, HR has decreased Confirmed by Praneeth Dowell ([id number]) on 10/17/2021 8:57:02 AM Referred By: Confirmed By:Praneeth Dowell
[2021-10-17] MEDS: INSULIN HUMAN NPH SC SCH ×2 (09:12→17:17)
[2021-10-17] MEDS: INSULIN ASPART PER UNIT SC SCH ×4 (09:12→20:40)
--- NOTE | 2021-10-17 09:18 | Pharmacy Report ---
Pharmacy Glycemic Short Note 2 - Date of Service October 17, 2021 - Glycemic Short BSG Results (Last 24 hours): 10/16/21 10/16/21 10/16/21 10:09 11:20 14:44 Glucose 208 H 151 H POC Glucose 213 H 10/16/21 10/16/21 10/16/21 16:19 19:00 20:17 Glucose 171 H POC Glucose 168 H 169 H 10/16/21 10/17/21 10/17/21 23:03 07:17 07:39 Glucose 128 H 110 H POC Glucose 113 H OUTPATIENT ANTIDIABETIC REGIMEN: * Novolog 70/30: 34 units SQ w/ breakfast & 24 units SQ w/ dinner * HbA1c = 7.2% (10/16/21) ASSESSMENT: 10/17: * Spoke with Carmen today regarding her home insulin regimen given multiple doses listed and recent transitions of care. Showed me her Novolog 70/30 pen and verbally confirmed home dosing listed above. * BSGs have been well controlled with the exception of lunchtime hyperglycemia. Stressors are stable with patient continuing on Prednisone 5 mg by mouth daily. * Fasting BSG well controlled at 113 mg/dL this AM. No changes to basal insulin necessary. * Will tighten Novolog today given postprandial hyperglycemia which could be related to steroids. PLAN FOR INPATIENT GLYCEMIC CONTROL: * Basal insulin * NPH 30 units SQ w/ breakfast * NPH 20 units SQ w/ dinner * Bolus insulin * NovoLog per scale ACHS or Q6hrs while NPO * Goal Range: Low 110 mg/dL - High 140 mg/dL * Correction Factor: 20 mg/dL/unit * Nutritional / Prandial insulin per carb ratio of 1 unit per 7 grams CHO consumed RECOMMENDATIONS FOR DISCHARGE: * HbA1c is well controlled given patient's age and comorbidities. Recommend continuing outpatient insulin regimen upon discharge. Follow-up with PCP for any high/low BSGs.
[2021-10-17] MEDS ORDERED: POTASSIUM CHLORIDE CRTAB 20 MEQ TABCR PO STA (09:32)
[2021-10-17] MEDS: allopurinoL 300 MG TAB PO SCH (10:12)
[2021-10-17] MEDS: ESCITALOPRAM OXALATE 10 MG TAB PO SCH (10:13)
[2021-10-17] MEDS: BUMETANIDE 1 MG TAB PO SCH ×2 (10:13→20:35)
[2021-10-17] MEDS: predniSONE 5 MG TAB PO SCH (10:13)
[2021-10-17] MEDS: LORATADINE 10 MG TAB PO SCH (10:13)
[2021-10-17] MEDS: dilTIAZem HCL 240 MG CAPCR PO SCH (10:13)
[2021-10-17] MEDS: PANTOprazole 40 MG TAB PO SCH (10:13)
--- NOTE | 2021-10-17 10:20 | Electrocardiogram Report ---
Test Reason : Blood Pressure : / mmHG Vent. Rate : 062 BPM Atrial Rate : 061 BPM P-R Int : 000 ms QRS Dur : 070 ms QT Int : 390 ms P-R-T Axes : 000 062 238 degrees QTc Int : 395 ms Poor data quality, interpretation may be adversely affected Atrial fibrillation with premature ventricular or aberrantly conducted complexes Septal infarct (cited on or before 23-APR-2020) Abnormal ECG When compared with ECG of 15-OCT-2021 11:41, (unconfirmed) HR has increased Confirmed by Praneeth oDwell ([id number]) on 10/17/2021 10:20:02 AM Referred By: REFERRED SELF Confirmed By:Praneeth Dowell
--- NOTE | 2021-10-17 10:31 | Electrocardiogram Report ---
Test Reason : Blood Pressure : / mmHG Vent. Rate : 058 BPM Atrial Rate : 054 BPM P-R Int : 000 ms QRS Dur : 078 ms QT Int : 360 ms P-R-T Axes : 000 076 -83 degrees QTc Int : 353 ms Atrial fibrillation with slow ventricular response Low voltage QRS Cannot rule out Anteroseptal infarct (cited on or before 23-APR-2020) Abnormal ECG When compared with ECG of 15-OCT-2021 18:19, (unconfirmed) No significant change was found Confirmed by Praneeth Dowell ([id number]) on 10/17/2021 10:31:14 AM Referred By: REFERRED SELF Confirmed By:Praneeth Dowell
--- NOTE | 2021-10-17 10:31 | Hospitalist Progress Note ---
Date of Service October 17, 2021 Assessment & Plan (1) Hyperkalemia: (2) Bradycardia on ECG: (3) Calcium channel elvin overdose: (4) Myelodysplastic syndrome with 5 q minus: (5) Pancytopenia: (6) Atrial fibrillation: (7) Elevated bilirubin: (8) Hypertension: (9) CKD (chronic kidney disease) stage 3, GFR 30-59 ml/min: (10) Inflammatory arthritis: (11) IDDM (insulin dependent diabetes mellitus): Plan: Please refer to Dr. Gonzalez addendum to assessment and plan. As per H and P: 81 y/o F with hx of IDDM, Afib (not on AC), Myelodysplastic syndrome with pancytopenia, HTN, Inflammatory arthritis, Spinal stenosis, hx of COVID pneumonia, hx of L breast Ca s/p lumpectomy and uterine cancer s/p BENSON, chronic prednisone use admitted for hyperkalemia with Bradycardia and Cardizem overdose. HyperK+: Seems patient was taking KCL intake with not taking her bumex.As per Nephrology also bradycardia can cause hyperkalemia. s/p Ca++gluconate 3000mg, Bicarb, dextrose/Insulin 10 units, albuterol nebs, Eric tassa 8.4g, and Lasix 80mg IV continue bumex. holding kcl tablets today K 3.4 will give 20meq po kcl today At home on kcl 30meq po bid. - which is on hold' needs to adjust KCL dose at discharge Excess Cardizem dose (480mg ) with Bradycardia: holding both metoprolol and Cardizem and digoxin Improving Cardiology recommends to start Cardizem 240mg daily tomorrow and to stop metoprolol and digoxin HR 100 today, Starting cardizem 240mg po daily today and monitor. Afib with pulm edema on CXR: Not taking xarelto: Most likely due to thrombocytopenia digoxin level is high (2.1) with shorter QTc on presentation Holding dixgoxin to continue home PO Bumex Digoxin is 1.1 today starting back on cardizem VAlvular heart disease chronic diastolic chf continue bumex monitor MDS with pancytopenia: hgb is better than baseline Plt is near her baseline: 26 today PLT transfusion if <10 Was on Revlimid which is on hold followup with hem/onco Hx of breast cancer s/p lumpectomy Hx of uterine cancer s/ BENSON followup with heme/onco Elevated T bili: has chronic elevated Tbili if trending up then will get CT abd or Abd US followup repeat labs IDDM: home insulin regimen Will monitor Lumbar spinal stenosis on chronic prednisone + Seasonal allergy + GERD + Gout: To continue home prednisone Pt/OT DVT PPx: SCD FULL CODE Diet: Cardiac, Renal and DMII Disposition Possible d/c in 1-2 days pt/ot Admission and Anticipated Discharge Date Admission Date: October 15, 2021 Subjective Sitting on the bed says she slept better ate breakfast no chest pain or sob says sometimes she feels her heart fluttering no cough afebrile says lives alone but sister s and brother live close by Review of Systems Review of Systems: All systems reviewed & are unremarkable except as noted in Subjective Physical Exam Constitutional: WD/WN, vitals as above ENMT: external ear and nose normal, oropharynx normal Neck: trachea midline, no thyromegaly Respiratory: normal respiratory effort, lungs clear to auscultation Cardiovascular: S1 and s2 heard, RRR, No urmurs. Bilateral lower extremity edema present Gastrointestinal (Abdomen): normal bowel sounds, soft, nontender, no hepatosplenomegaly Neurologic: EOMI<, NO facial palsy, Speech clear, Moves extremities Psychiatric: A+Ox3, euthymic affect Results & Data Results & Data ([facility]) Vital Signs (Past 12 Hours) Vital Signs Temp Pulse Pulse Resp BP Pulse Ox 10/17/21 08:12 37.0 C 100 H 19 158/78 H 91 10/17/21 07:47 74 10/17/21 03:00 36.7 C 84 16 125/63 96 10/16/21 23:21 36.8 C 83 16 135/66 94 (1) Atrial fibrillation Atrial fibrillation type: unspecified Qualified Code(s): I48.91 - Unspecified atrial fibrillation (2) Hypertension Hypertension type: essential hypertension Qualified Code(s): I10 - Essential (primary) hypertension
--- NOTE | 2021-10-17 14:28 | Electrocardiogram Report ---
Test Reason : Blood Pressure : / mmHG Vent. Rate : 067 BPM Atrial Rate : 071 BPM P-R Int : 000 ms QRS Dur : 078 ms QT Int : 306 ms P-R-T Axes : 000 082 257 degrees QTc Int : 323 ms Atrial fibrillation Anteroseptal infarct (cited on or before 23-APR-2020) Abnormal ECG When compared with ECG of 16-OCT-2021 05:58, (unconfirmed) No significant change was found Confirmed by Praneeth Dowell ([id number]) on 10/17/2021 2:27:35 PM Referred By: REFERRED SELF Confirmed By:Praneeth Dowell
--- NOTE | 2021-10-17 16:43 | Cardiology Progress Note ---
Date of Service October 17, 2021 Assessment & Plan (1) Bradycardia: (2) Atrial fibrillation: (3) Valvular heart disease: (4) Elevated troponin I level: Plan: 1. Bradycardia: Resolved. She was started back on diltiazem today. She has some higher rates with activity. If she continues to have high rates over the next 24 hours we could reinitiate her metoprolol at half of the original dose. 2. Atrial fibrillation: Palpitations appear to have resolved with re- initiation of diltiazem. Anticoagulation still deferred based on her significant anemia and transfusion requirements. 3. Valvular heart disease: Unchanged from her last echocardiogram. Do not bel ieve this is causing significant symptoms. Overall LV systolic function is normal. She is not appear to be a good candidate for any valve intervention. Admission and Anticipated Discharge Date Admission Date: October 15, 2021 Subjective this afternoon the patient claims to be feeling well. She slept better last night. She was ambulatory with her walker around the mcdaniel. She did not report significant breathing difficulty. The palpitations disease experience last evening appear to have resolved with initiation of diltiazem. Review of Systems Review of Systems: Per HPI. Poor appetite. Physical Exam Physical Exam: She is alert and oriented x3. Mood affect appear normal. She answered all questions appropriately. HEENT: Sclerae are anicteric. Pupils are equal and reactive to light and accommodation. Extraocular movements were intact. Neuro: Cranial nerves intact Lungs: Normal respiratory effort. Cardiac: The rhythm was irregular. S1 and S2 were normal. Crescendo systolic murmur. The PMI was not markedly displaced on palpation. Extremities: Patient has bilateral radial pulses that are equal in intensity. There is no evidence cyanosis or clubbing. Skin: There are no rashes noted on examination today. Results & Data ([facility]) Vital Signs (Past 12 Hours) Vital Signs Temp Pulse Pulse Resp BP Pulse Ox 10/17/21 16:24 37.0 C 87 19 137/65 93 10/17/21 14:57 101 H 10/17/21 12:01 37.3 C 75 18 132/70 93 10/17/21 08:12 37.0 C 100 H 19 158/78 H 91 10/17/21 07:47 74 Laboratory Results Abnormal Lab Results 10/16/21 10/16/21 10/16/21 19:00 20:17 23:03 WBC RBC Hgb Hct MCV MCH MCHC RDW Std Deviation RDW Coeff of Griffin Plt Count Neutrophils % (Manual) Lymphocytes % (Manual) Monocytes % (Manual) Eosinophils % (Manual) Neutrophils # (Manual) Total Absolute Neuts Lymphocytes # (Manual) Total Abs Lymphocytes Monocytes # (Manual) Eosinophils # (Manual) Hypogranular Neuts Platelet Estimate Giant Platelets Sodium 136 138 Potassium 3.8 3.5 Chloride 97 L 97 L Carbon Dioxide 29 34 H Anion Gap 10 7 BUN 47 H 47 H Creatinine 1.64 H 1.59 H Est Cr Clr Drug Dosing 29.2 30.2 Est GFR ( Amer) 34.1 35.4 Est GFR (Non-Af Amer) 29.4 30.6 BUN/Creatinine Ratio 28.7 H 29.6 H Glucose 171 H 128 H POC Glucose 169 H Calcium 9.1 9.1 Magnesium 10/17/21 10/17/21 10/17/21 07:17 07:39 07:39 WBC 5.45 RBC 3.24 L Hgb 9.4 L Hct 29.1 L MCV 89.8 MCH 29.0 MCHC 32.3 RDW Std Deviation 48.7 H RDW Coeff of Griffin 15.2 H Plt Count 26 L* Neutrophils % (Manual) 85.2 Lymphocytes % (Manual) 8.7 Monocytes % (Manual) 5.2 Eosinophils % (Manual) 0.9 Neutrophils # (Manual) 4.64 Total Absolute Neuts 4.64 Lymphocytes # (Manual) 0.47 L Total Abs Lymphocytes 0.47 L Monocytes # (Manual) 0.28 Eosinophils # (Manual) 0.05 Hypogranular Neuts 1+ Platelet Estimate SIGNIFIC DECREASED Giant Platelets 1+ Sodium 138 Potassium 3.4 L Chloride 97 L Carbon Dioxide 33 H Anion Gap 8 BUN 41 H Creatinine 1.45 H Est Cr Clr Drug Dosing 33.1 Est GFR ( Amer) 39.6 Est GFR (Non-Af Amer) 34.2 BUN/Creatinine Ratio 28.3 H Glucose 110 H POC Glucose 113 H Calcium 9.1 Magnesium 1.8 10/17/21 10/17/21 11:16 16:18 WBC RBC Hgb Hct MCV MCH MCHC RDW Std Deviation RDW Coeff of Griffin Plt Count Neutrophils % (Manual) Lymphocytes % (Manual) Monocytes % (Manual) Eosinophils % (Manual) Neutrophils # (Manual) Total Absolute Neuts Lymphocytes # (Manual) Total Abs Lymphocytes Monocytes # (Manual) Eosinophils # (Manual) Hypogranular Neuts Platelet Estimate Giant Platelets Sodium Potassium Chloride Carbon Dioxide Anion Gap BUN Creatinine Est Cr Clr Drug Dosing Est GFR ( Amer) Est GFR (Non-Af Amer) BUN/Creatinine Ratio Glucose POC Glucose 149 H 91 Calcium Magnesium PG Care Time/CCT Total # of Minutes Spent Total Time Spent with Patient: Total time spent is greater than 50% in coordination of care (as documented) at patient's floor/unit and/or counseling patient: Coding Level of Care Code 47495 Subseq Hosp Care Lvl 2 Diagnoses Bradycardia R00.1 Atrial fibrillation I48.91 Atrial fibrillation type: unspecified Valvular heart disease I38 Elevated troponin I level R77.8 (1) Atrial fibrillation Atrial fibrillation type: unspecified Qualified Code(s): I48.91 - Unspecified atrial fibrillation
[2021-10-18] MEDS: INSULIN ASPART PER UNIT SC SCH ×4 (07:51→20:22)
[2021-10-18] MEDS: INSULIN HUMAN NPH SC SCH ×2 (07:52→17:04)
[2021-10-18] MEDS: dilTIAZem HCL 240 MG CAPCR PO SCH (07:54)
[2021-10-18] MEDS: ESCITALOPRAM OXALATE 10 MG TAB PO SCH (07:55)
[2021-10-18] MEDS: BUMETANIDE 1 MG TAB PO SCH ×2 (07:55→20:23)
[2021-10-18] MEDS: allopurinoL 300 MG TAB PO SCH (07:55)
[2021-10-18] MEDS: PANTOprazole 40 MG TAB PO SCH (07:55)
[2021-10-18] MEDS: predniSONE 5 MG TAB PO SCH (07:55)
[2021-10-18 07:58] LABS: ALC (manual) 0.55 K/uL (1.2-3.4); ANC (manual) 2.99 K/uL (1.4-6.5); Giant Platelets 1+; Hematocrit (blood only) 23.5 % (37-47); Hemoglobin 7.9 g/dL (12.0-16.0); Hypogranular Neutrophils 1+; Lymphocytes # (manual) 0.55 K/uL (1.2-3.4); Lymphocytes % (manual) 14.8 %; Mean Corpuscular Hemoglobin 29.4 pg (25-34); Mean Corpuscular Hgb Conc 33.6 g/dL (32-36); Mean Corpuscular Volume 87.4 fL (80-100); Monocytes # (manual) 0.19 K/uL (0.11-0.59); Monocytes % (manual) 5.2 %; Neutrophils # (manual) 2.99 K/uL (1.4-6.5); Platelet Count 20 K/uL (130-400); Platelet Estimate SIGNIFIC DECREASED (Normal); RDW Coefficient of Variation 15.1 % (11.5-14.5); RDW Standard Deviation 47.3 fL (36.4-46.3); Red Blood Count 2.69 M/uL (4.2-5.4); White Blood Count 3.74 K/uL (4.8-10.8)
[2021-10-18] MEDS: LORATADINE 10 MG TAB PO SCH (07:58)
[2021-10-18 08:09] LABS: Albumin Globulin Ratio 1.6 (0.9-2); Albumin Level 3.2 gm/dl (3.4-5.0); BUN Creatinine Ratio 26.7 (10-20); Bilirubin,Total 1.9 mg/dl (0.2-1.0); Calcium 8.4 mg/dl (8.5-10.1); Creatinine Clr Calc Pharmacy 36.5 ml/min; Est GFR (African American) 44.8 ml/min; Est GFR (Non-African American) 38.6 ml/min; Magnesium 1.8 mg/dl (1.7-2.4); Potassium 3.1 mmol/L (3.5-5.1); Total Protein 5.2 gm/dl (6.0-8.3)
[2021-10-18] MEDS ORDERED: POTASSIUM CHLORIDE 10 MEQ TABCR PO STA (09:13)
--- NOTE | 2021-10-18 09:58 | Hospitalist Progress Note ---
Date of Service October 18, 2021 Assessment & Plan (1) Hyperkalemia: (2) Bradycardia on ECG: (3) Calcium channel elvin overdose: (4) Myelodysplastic syndrome with 5 q minus: (5) Pancytopenia: (6) Atrial fibrillation: (7) Elevated bilirubin: (8) Hypertension: (9) CKD (chronic kidney disease) stage 3, GFR 30-59 ml/min: (10) Inflammatory arthritis: (11) IDDM (insulin dependent diabetes mellitus): Plan: 81 y/o F with hx of IDDM, Afib (not on AC), Myelodysplastic syndrome with pancytopenia, HTN, Inflammatory arthritis, Spinal stenosis, hx of COVID pneumonia, hx of L breast Ca s/p lumpectomy and uterine cancer s/p BENSON, chronic prednisone use admitted for hyperkalemia with Bradycardia and Cardizem overdose. Hyperkalemia Seems patient was taking KCL intake with not taking her bumex. s/p Ca++gluconate 3000mg, Bicarb, dextrose/Insulin 10 units, albuterol nebs, Veltassa 8.4g, and Lasix 80mg IV Continue bumex K is 3.1 today Home po potassium 20mEq bid had been on hold Discussed with [employer] Dr Olivarez. Ok to resume potassium 20mEq daily for now and monitor Replete and monitor Bradycardia Excess Cardizem dose (480mg ) with Bradycardia: Cardizem, metoprolol and digoxin were initially held Cardiology on board Bradycardia has resolved HR improved. Diltiazem had been resumed Per Cardiology note yesterday, ok reinitiate metoprolol at half home dose if high rates HR in 90s. Metoprolol tartarate resumed at 25mg daily. Monitor . Valvular heart disease Chronic diastolic chf Afib with pulm edema on CXR: Not taking xarelto: Most likely due to thrombocytopenia Digoxin level was high (2.1) with shorter QTc on presentation Holding dixgoxin Continue bumex Digoxin is 1.1 today MDS with pancytopenia: Gets regular transfusions Hb is 7.9 today. Monitor and transfuse prn to keep Hb >7 Plt is 20k today. PLT transfusion if <10 Was on Revlimid which is on hold Followup with hem/onco Hx of breast cancer s/p lumpectomy Hx of uterine cancer s/ BENSON Followup with heme/onco Elevated T bili: Has chronic elevated Tbili If trending up then will get CT abd or Abd US Followup repeat labs IDDM: Home insulin regimen Will monitor Lumbar spinal stenosis on chronic prednisone + Seasonal allergy + GERD + Gout: To continue home prednisone PT/OT DVT PPx: SCD FULL CODE I Admission and Anticipated Discharge Date Admission Date: October 15, 2021 Subjective Patient seen and examined. Reports feeling sleepy this morning. Denies any headache, dizziness Reports cough mostly dry. Denies any shortness of breath, chest pain, palpitations Denies any nausea, vomiting, abdominal pain, diarrhea constipation Denies fevers or chills Denies dysuria, frequency or urgency Physical Exam Constitutional: + well hydrated; no acute distress Eyes: PERRL, conjunctivae normal, anicteric sclerae ENMT: external ear and nose normal, oropharynx normal Respiratory: normal respiratory effort, lungs clear to auscultation Cardiovascular: Rate/Rhythm: + irregularly irregular S1-S2 Gastrointestinal (Abdomen): normal bowel sounds, soft, nontender, no hepatosplenomegaly Musculoskeletal: Pedal edema Neurologic: PERRL, EOMI, accommodation nl, no face palsy, no dysarthria Psychiatric: A+Ox3, euthymic affect Results & Data Results & Data ([facility]) Vital Signs (Past 12 Hours) Vital Signs Temp Pulse Pulse Resp BP Pulse Ox 10/18/21 07:57 36.7 C 87 97 H 121/68 96 10/18/21 04:00 36.7 C 79 18 131/85 96 10/17/21 23:33 91 H 10/17/21 23:11 36.8 C 84 20 138/62 93 Laboratory Results Abnormal lab results 10/17/21 10/18/21 10/18/21 Range/Units 20:35 06:27 06:27 WBC 3.74 L (4.8-10.8) K/uL RBC 2.69 L (4.2-5.4) M/uL Hgb 7.9 L (12.0-16.0) g/dL Hct 23.5 L (37-47) % RDW Std Deviation 47.3 H (36.4-46.3) fL RDW Coeff of Griffin 15.1 H (11.5-14.5) % Plt Count 20 L* (130-400) K/uL Lymphocytes # (Manual) 0.55 L (1.2-3.4) K/uL Total Abs Lymphocytes 0.55 L (1.2-3.4) K/uL Potassium 3.1 L (3.5-5.1) mmol/L BUN 35 H (6-23) mg/dl Creatinine 1.31 H (0.6-1.2) mg/dl BUN/Creatinine Ratio 26.7 H (10-20) Glucose 142 H (70-99(Fasting)) mg/dl POC Glucose 163 H (70-99) mg/dl Calcium 8.4 L (8.5-10.1) mg/dl Total Bilirubin 1.9 H (0.2-1.0) mg/dl AST 10 L (13-39) U/L Total Protein 5.2 L (6.0-8.3) gm/dl Albumin 3.2 L (3.4-5.0) gm/dl Globulin 2.0 L (2.5-4.0) gm/dl 10/18/21 10/18/21 Range/Units 07:32 11:25 WBC (4.8-10.8) K/uL RBC (4.2-5.4) M/uL Hgb (12.0-16.0) g/dL Hct (37-47) % RDW Std Deviation (36.4-46.3) fL RDW Coeff of Griffin (11.5-14.5) % Plt Count (130-400) K/uL Lymphocytes # (Manual) (1.2-3.4) K/uL Total Abs Lymphocytes (1.2-3.4) K/uL Potassium (3.5-5.1) mmol/L BUN (6-23) mg/dl Creatinine (0.6-1.2) mg/dl BUN/Creatinine Ratio (10-20) Glucose (70-99(Fasting)) mg/dl POC Glucose 178 H 193 H (70-99) mg/dl Calcium (8.5-10.1) mg/dl Total Bilirubin (0.2-1.0) mg/dl AST (13-39) U/L Total Protein (6.0-8.3) gm/dl Albumin (3.4-5.0) gm/dl Globulin (2.5-4.0) gm/dl (1) Atrial fibrillation Atrial fibrillation type: unspecified Qualified Code(s): I48.91 - Unspecified atrial fibrillation (2) Hypertension Hypertension type: essential hypertension Qualified Code(s): I10 - Essential (primary) hypertension
[2021-10-18] MEDS: MAGNESIUM HYDROXIDE SUSP 30 ML UDC PO PRN (12:54)
[2021-10-18] MEDS: METOPROLOL TARTRATE 25 MG TAB PO SCH (13:51)
[2021-10-18] MEDS ORDERED: LACTULOSE SYRUP 30 GM/45 ML UDP PO ONE (20:15)
[2021-10-18] MEDS: DOCUSATE SODIUM/SENNA 50/8.6MG TAB PO SCH (21:01)
[2021-10-19 07:53] LABS: Hematocrit (blood only) 24.3 % (37-47); Hemoglobin 8.1 g/dL (12.0-16.0); Mean Corpuscular Hemoglobin 28.9 pg (25-34); Mean Corpuscular Hgb Conc 33.3 g/dL (32-36); Mean Corpuscular Volume 86.8 fL (80-100); Platelet Count 19 K/uL (130-400); RDW Standard Deviation 47.3 fL (36.4-46.3); White Blood Count 4.25 K/uL (4.8-10.8)
[2021-10-19] MEDS: INSULIN ASPART PER UNIT SC SCH ×4 (07:55→20:31)
[2021-10-19] MEDS: INSULIN HUMAN NPH SC SCH ×2 (07:56→17:15)
[2021-10-19 07:58] LABS: Albumin Level 3.3 gm/dl (3.4-5.0); BUN Creatinine Ratio 27.7 (10-20); Bilirubin Direct 0.4 mg/dl (0-0.2); Bilirubin,Total 1.6 mg/dl (0.2-1.0); Calcium 8.5 mg/dl (8.5-10.1); Creatinine Clr Calc Pharmacy 35.6 ml/min; Est GFR (African American) 42.4 ml/min; Est GFR (Non-African American) 36.6 ml/min; Magnesium 1.9 mg/dl (1.7-2.4); Potassium 3.2 mmol/L (3.5-5.1); Total Protein 5.5 gm/dl (6.0-8.3)
[2021-10-19] MEDS: DOCUSATE SODIUM/SENNA 50/8.6MG TAB PO SCH (08:17)
[2021-10-19] MEDS: METOPROLOL TARTRATE 25 MG TAB PO SCH (08:18)
[2021-10-19] MEDS: ESCITALOPRAM OXALATE 10 MG TAB PO SCH (08:18)
[2021-10-19] MEDS: PANTOprazole 40 MG TAB PO SCH (08:18)
[2021-10-19] MEDS: dilTIAZem HCL 240 MG CAPCR PO SCH (08:18)
[2021-10-19] MEDS: POTASSIUM CHLORIDE CRTAB 20 MEQ TABCR PO SCH ×3 (08:18→14:39)
[2021-10-19] MEDS: allopurinoL 300 MG TAB PO SCH (08:18)
[2021-10-19] MEDS: predniSONE 5 MG TAB PO SCH (08:18)
[2021-10-19] MEDS: LORATADINE 10 MG TAB PO SCH (08:18)
[2021-10-19] MEDS: BUMETANIDE 1 MG TAB PO SCH ×2 (08:18→20:30)
[2021-10-19] MEDS: traMADol HCL 50 MG TABLET PO PRN ×2 (11:05→16:50)
--- NOTE | 2021-10-19 13:14 | Hospitalist Progress Note ---
Date of Service October 19, 2021 Assessment & Plan (1) Hyperkalemia: (2) Bradycardia on ECG: (3) Calcium channel elvin overdose: (4) Myelodysplastic syndrome with 5 q minus: (5) Pancytopenia: (6) Atrial fibrillation: (7) Elevated bilirubin: (8) Hypertension: (9) CKD (chronic kidney disease) stage 3, GFR 30-59 ml/min: (10) Inflammatory arthritis: (11) IDDM (insulin dependent diabetes mellitus): Plan: 81 y/o F with hx of IDDM, Afib (not on AC), Myelodysplastic syndrome with pancytopenia, HTN, Inflammatory arthritis, Spinal stenosis, hx of COVID pneumonia, hx of L breast Ca s/p lumpectomy and uterine cancer s/p BENSON, chronic prednisone use admitted for hyperkalemia with Bradycardia and Cardizem overdose. Hyperkalemia Seems patient was taking KCL intake with not taking her bumex. s/p Ca++gluconate 3000mg, Bicarb, dextrose/Insulin 10 units, albuterol nebs, Veltassa 8.4g, and Lasix 80mg IV Continue bumex K is 3.2 today--additional doses of KCl were given. Discussed with Accreditation Manager Dr Olivarez. Ok to resume potassium 20mEq daily for now and monitor Bradycardia Excess Cardizem dose (480mg ) with Bradycardia: Cardizem, metoprolol and digoxin were initially held Cardiology on board Bradycardia has resolved HR improved. Diltiazem had been resumed Cont current 50% reduction in metoprolol as this is working well for her . Valvular heart disease Chronic diastolic chf Afib with pulm edema on CXR: Not taking xarelto 2/2 thrombocytopenia Digoxin level was high (2.1) with shorter QTc on presentation Holding dixgoxin Continue bumex Digoxin is 1.1 MDS with pancytopenia: Gets regular transfusions Hb is 8.1 today from 7.9 yesterday. Monitor and transfuse prn to keep Hb >7 Plt is 20k today. PLT transfusion if <10 Was on Revlimid which is on hold Followup with hem/onc as outpatient. Hx of breast cancer s/p lumpectomy Hx of uterine cancer s/ BENSON Followup with heme/onc IDDM: chronic, at goal, cont current insulin regimen. Lumbar spinal stenosis on chronic prednisone + Seasonal allergy + GERD + Gout: To continue home prednisone PT/OT DVT PPx: SCD FULL CODE Dispo-to home when feeling improved, possibly tomorrow or Thursday DO Rolando Lim Hospitalist Admission and Anticipated Discharge Date Admission Date: October 15, 2021 Subjective 81 yo F presents with bradycardia during a blood transfusion in the [facility] on 10/15. She has a h/o IDDM, afb, myelodysplastic syndrome with pancytopenia, inflammatory arthritis and chronic prednisone. She had admitted to taking extra diltiazem because of fatigue, and was treated for diltiazem toxicity. She was also hyperkalemic 2/2 taking her potassium supplements without her normal diuretics. She is now improved and is back on her diltizaem and home metoprolol. Her K is 3.2 this am. Reports generally not feeling well, likely a result of poor sleep quality overnight. Review of Systems Review of Systems: All systems were reviewed and negative except as indicated in subjective above. Physical Exam Physical Exam: CONSTITUTIONAL: WNWD, vitals as above, generally well- appearing EYES: normal conjunctivae, no scleral icterus, ENT: external ear and nose normal, NECK: trachea midline RESPIRATORY: clear to auscultation bilaterally, no crackles, rales or wheezes, normal respiratory effort CARDIOVASCULAR: regular rate and rhythm, S1 and 2 heard without murmurs, gallops or rubs, no JVD, no peripheral edema, CHEST: inspection of chest was normal GASTROINTESTINAL: soft, nontender, ND, no guarding MUSCULOSKELETAL: strength 5/5 throughout, head is normocephalic and atraumatic, SKIN: warm and dry NEUROLOGIC: CN 2-12 grossly intact, no sensory deficit, normal cognition, normal speech, no tremor PSYCHIATRIC: alert cooperative and oriented to person, place and time. Results & Data Results & Data ([facility]) Vital Signs (Past 12 Hours) Vital Signs Temp Pulse Resp BP Pulse Ox 10/19/21 10:53 36.3 C L 77 16 143/72 H 96 10/19/21 07:57 36.6 C 90 17 158/81 H 97 10/19/21 03:00 36.6 C 71 18 129/76 96 Laboratory Results Short CBC 10/19/21 Range/Units 07:15 WBC 4.25 L (4.8-10.8) K/uL Hgb 8.1 L (12.0-16.0) g/dL Hct 24.3 L (37-47) % Plt Count 19 L* (130-400) K/uL BMP 10/19/21 07:15 Sodium 137 Potassium 3.2 L Chloride 98 Carbon Dioxide 32 BUN 38 H Creatinine 1.37 H Glucose 141 H Calcium 8.5 Liver Function 10/19/21 Range/Units 07:15 Total Bilirubin 1.6 H (0.2-1.0) mg/dl Direct Bilirubin 0.4 H (0-0.2) mg/dl AST 8 L (13-39) U/L ALT 18 (7-52) U/L Alkaline Phosphatase 77 (34-104) U/L Albumin 3.3 L (3.4-5.0) gm/dl Medications Administered Current Inpatient Medications Acetaminophen (Acetaminophen 325 Mg Tab) 650 mg PO Q4H PRN PRN Reason: Pain or Fever Stop: 11/14/21 16:06 Al Hydrox/Mg Hydrox/Simethicone (Aluminum/Magnesium Susp 30 Ml Udc) 15 ml PO Q4H PRN PRN Reason: Dyspepsia Stop: 11/14/21 16:06 Allopurinol (Allopurinol 300 Mg Tab) 300 mg PO DAILY LEONA Stop: 11/15/21 08:59 Last Admin: 10/19/21 08:18 Dose: 300 mg Documented by: Bumetanide (Bumetanide 1 Mg Tab) 2 mg PO BID LEONA Stop: 11/14/21 20:59 Last Admin: 10/19/21 20:30 Dose: 2 mg Documented by: Dextrose (Dextrose 50% 50 Ml Syringe) 25 - 50 ml IV UD PRN; Protocol PRN Reason: Hypoglycemia Protocol Stop: 11/14/21 16:06 Diltiazem HCl (Diltiazem Hcl 240 Mg Capcr) 240 mg PO QAM LEONA Stop: 11/16/21 09:44 Last Admin: 10/19/21 08:18 Dose: 240 mg Documented by: Escitalopram Oxalate (Escitalopram Oxalate 10 Mg Tab) 10 mg PO DAILY LEONA Stop: 11/15/21 08:59 Last Admin: 10/19/21 08:18 Dose: 10 mg Documented by: Glucagon (Glucagon For Inj 1 Mg Vial) 1 mg SQ UD PRN; Protocol PRN Reason: Hypoglycemia Protocol Stop: 11/14/21 16:06 Glucose (Glucose 10 Tabs/Tube) 4 - 8 tabs PO UD PRN; Protocol PRN Reason: Hypoglycemia Protocol Stop: 11/14/21 16:06 Glucose (Glucose 40% Gel 15 Gm Tube) 15 - 30 gm PO UD PRN; Protocol PRN Reason: Hypoglycemia Protocol Stop: 11/14/21 16:06 Insulin Aspart (Insulin Aspart Per Unit) 0 units SC ACHS LEONA; Protocol Stop: 11/14/21 16:29 Last Admin: 10/19/21 20:31 Dose: Not Given Documented by: Insulin Human NPH (Insulin Human Nph) 30 units SC DAILY@0800 LEONA; Protocol Stop: 11/15/21 07:59 Last Admin: 10/19/21 07:56 Dose: 30 units Documented by: Insulin Human NPH (Insulin Human Nph) 20 units SC DAILY@1700 LEONA; Protocol Stop: 11/15/21 16:59 Last Admin: 10/19/21 17:15 Dose: 20 units Documented by: Loratadine (Loratadine 10 Mg Tab) 10 mg PO DAILY [facility] Stop: 11/15/21 08:59 Last Admin: 10/19/21 08:18 Dose: 10 mg Documented by: Magnesium Hydroxide (Magnesium Hydroxide Susp 30 Ml Udc) 30 ml PO Q12H PRN PRN Reason: Constipation Stop: 11/14/21 16:06 Last Admin: 10/18/21 12:54 Dose: 30 ml Documented by: Metoprolol Tartrate (Metoprolol Tartrate 25 Mg Tab) 25 mg PO QAM [facility] Stop: 11/17/21 12:44 Last Admin: 10/19/21 08:18 Dose: 25 mg Documented by: Miscellaneous (Carbohydrates For Hypoglycemia ) 15 - 30 gm PO UD PRN PRN Reason: Hypoglycemia Protocol Stop: 11/14/21 16:06 Miscellaneous Information (Pharmacy Glycemic Mgmt Consult) 1 ea N/A UD PRN PRN Reason: Consult Stop: 11/14/21 16:06 Ondansetron HCl (Ondansetron Inj 2 Mg/Ml 2 Ml Vial) 4 mg IV Q6H PRN PRN Reason: Nausea Stop: 11/14/21 16:06 Pantoprazole Sodium (Pantoprazole 40 Mg Tab) 40 mg PO DAILY [facility]; Protocol Stop: 11/15/21 08:59 Last Admin: 10/19/21 08:18 Dose: 40 mg Documented by: Polyethylene Glycol (Polyethylene (Miralax) 17 Gm Pack) 17 gm PO DAILY PRN PRN Reason: Constipation Stop: 11/14/21 16:06 Last Admin: 10/18/21 17:08 Dose: 17 gm Documented by: Potassium Chloride (Potassium Chloride Crtab 20 Meq Tabcr) 20 meq PO QAM [facility] Stop: 11/18/21 08:59 Last Admin: 10/19/21 08:18 Dose: 20 meq Documented by: Prednisone (Prednisone 5 Mg Tab) 5 mg PO DAILY [facility] Stop: 11/15/21 08:59 Last Admin: 10/19/21 08:18 Dose: 5 mg Documented by: Senna/Docusate Sodium (Docusate Sodium/Senna 50/8.6mg Tab) 1 tab PO QAM [facility] Stop: 11/17/21 19:59 Last Admin: 10/19/21 08:17 Dose: 1 tab Documented by: Tramadol HCl (Tramadol Hcl 50 Mg Tablet) 50 mg PO Q6H PRN PRN Reason: Pain Stop: 11/14/21 16:06 Last Admin: 10/19/21 16:50 Dose: 50 mg Documented by: (1) Atrial fibrillation Atrial fibrillation type: unspecified Qualified Code(s): I48.91 - Unspecified atrial fibrillation (2) Hypertension Hypertension type: essential hypertension Qualified Code(s): I10 - Essential (primary) hypertension
[2021-10-20] MEDS: INSULIN HUMAN NPH SC SCH (08:17)
[2021-10-20] MEDS: INSULIN ASPART PER UNIT SC SCH ×2 (08:20→12:11)
[2021-10-20] MEDS: BUMETANIDE 1 MG TAB PO SCH (08:26)
[2021-10-20] MEDS: allopurinoL 300 MG TAB PO SCH (08:26)
[2021-10-20] MEDS: POTASSIUM CHLORIDE CRTAB 20 MEQ TABCR PO SCH (08:26)
[2021-10-20] MEDS: LORATADINE 10 MG TAB PO SCH (08:26)
[2021-10-20] MEDS: METOPROLOL TARTRATE 25 MG TAB PO SCH (08:27)
[2021-10-20] MEDS: DOCUSATE SODIUM/SENNA 50/8.6MG TAB PO SCH (08:27)
[2021-10-20] MEDS: ESCITALOPRAM OXALATE 10 MG TAB PO SCH (08:27)
[2021-10-20] MEDS: PANTOprazole 40 MG TAB PO SCH (08:28)
[2021-10-20] MEDS: predniSONE 5 MG TAB PO SCH (08:28)
[2021-10-20] MEDS: dilTIAZem HCL 240 MG CAPCR PO SCH (08:28)
[2021-10-20 09:41] LABS: BUN Creatinine Ratio 25.9 (10-20); Calcium 8.5 mg/dl (8.5-10.1); Creatinine Clr Calc Pharmacy 34.2 ml/min; Est GFR (African American) 40.3 ml/min; Est GFR (Non-African American) 34.7 ml/min; Potassium 3.3 mmol/L (3.5-5.1)
[2021-10-20 09:44] LABS: Basophils # (auto) 0.01 K/uL (0-0.2); Basophils % (auto) 0.3 %; Eosinophils # (auto) 0.02 K/uL (0-0.5); Eosinophils % (auto) 0.6 %; Hematocrit (blood only) 24.4 % (37-47); Hemoglobin 8.1 g/dL (12.0-16.0); Immature Granulocytes # (auto) 0.06 K/uL (0.00-0.02); Immature Granulocytes % (auto) 1.7 %; Lymphocytes # (auto) 0.46 K/uL (1.2-3.4); Lymphocytes % (auto) 13.2 %; Mean Corpuscular Hemoglobin 29.6 pg (25-34); Mean Corpuscular Hgb Conc 33.2 g/dL (32-36); Mean Corpuscular Volume 89.1 fL (80-100); Monocytes # (auto) 0.25 K/uL (0.11-0.59); Monocytes % (auto) 7.2 %; Neutrophils # (auto) 2.68 K/uL (1.4-6.5); Platelet Count 30 K/uL (130-400); Platelet Estimate SIGNIFIC DECREASED (Normal); RDW Coefficient of Variation 15.2 % (11.5-14.5); RDW Standard Deviation 48.4 fL (36.4-46.3); Red Blood Count 2.74 M/uL (4.2-5.4); White Blood Count 3.48 K/uL (4.8-10.8)
[2021-10-20] MEDS: traMADol HCL 50 MG TABLET PO PRN (11:05)
[2021-10-20] MEDS ORDERED: POTASSIUM CHLORIDE CRTAB 20 MEQ TABCR PO ONE (11:40)
--- NOTE | 2021-10-20 12:37 | Discharge Summary ---
Date of Service October 20, 2021 Admission HPI Per Admitting Provider This is a 81 yr old F who has a significant PMH of T2DM, Afib off anticoagulation, MDS and chronic pancytopenia, HTN, HLD, gout, inflammatory polyarthritis, hx of breast and uterine ca, CKD 3, hx of covid who presents to E D 07/17 to found to have bradycardia at [facility] while getting transfused. She was receiving 2 units of PRBC today and only had 1 full unit transfused. Her HR was found to be in 30-40s. After further questioning it was determined that she took an extra dose of her cardizem this morning, equal to 480mg on top of her metoprolol and digoxin. When arriving to ED her HR was in 20s-30s. Her K was found to be > 9. She states she feels well. SHe denies chest pain, sob, f,c,s, lightheaded, dizziness, uri sx, n/v/d, abd pain. She further denies bleeding from nose, gums, melena or hematochezia. She does have Hx of uterine ca s/p hysterectomy. SHe also had hx of L breast ca s/p lumpectomy and lymph node dissection. She follows with [facility] On[facility] Dr. Barrientos. She was due for chemotherapy today. She lives by herself and performs all ADLS. She takes all of her medications regularly. She has been taking her potassium tablets regulary; however, she has missed several doses of her bumex in the last several days. She admits to being very busy the last 8 days and forgot to take them. SHe also has been fatigued. Her sister lives close by. In ED pt remained hemodynamically stable. She was significantly bradycardic. Her labs revealed hgb 11.1 and 35.3, plt24, K 8.5, na 133, bun 43, cr 1.57, glucose 282 and dig 2.1. In Ed she received 3 amps of calcium gluconate and bicarb, 1hr long neb, started on bicarb gtt, IV insulin/dextrose and 80mg of IV lasix. Principal Diagnosis bradycardia calcium channel elvin overdose hyperkalemia Discharge Exam CONSTITUTIONAL: WNWD, vitals as above, generally well-appearing EYES: normal conjunctivae, no scleral icterus, ENT: external ear and nose normal, NECK: trachea midline RESPIRATORY: clear to auscultation bilaterally, no crackles, rales or wheezes, normal respiratory effort CARDIOVASCULAR: regular rate and rhythm, S1 and 2 heard without murmurs, gallops or rubs, no JVD, no peripheral edema, CHEST: inspection of chest was normal GASTROINTESTINAL: soft, nontender, ND, no guarding MUSCULOSKELETAL: strength 5/5 throughout, head is normocephalic and atraumatic, SKIN: warm and dry NEUROLOGIC: CN 2-12 grossly intact, no sensory deficit, normal cognition, normal speech, no tremor PSYCHIATRIC: alert cooperative and oriented to person, place and time. Discharge Data Allergies Allergy/AdvReac Type Severity Reaction Status Date / Time hydrocodone Allergy Mild UNKNOWN Verified 10/15/21 07:39 "HAPPENED LONG TIME AGO" phenol Allergy Mild LOCALIZED Verified 10/15/21 07:39 RASH AT INJECTION SITE protamine Allergy Mild LOCALIZED Verified 10/15/21 07:39 RASH AT INJECTION SITE sodium phosphate Allergy Mild LOCALIZED Verified 10/15/21 07:39 RASH AT INJECTION SITE zinc Allergy Mild LOCALIZED Verified 10/15/21 07:39 RASH AT INJECTION SITE hydroxychloroquine AdvReac Mild "BURPED Verified 10/15/21 07:39 FOR DAYS AND TORE MY STOMACH UP" Consultations 10/15/21 13:11 ED Decision to Admit Stat 10/15/21 13:27 Consult Nephrology Routine 10/15/21 13:55 Consult Cardiology Routine Ordered Studies Laboratory Results WBC 3.48 K/uL (4.8-10.8) L 10/20/21 08:51 RBC 2.74 M/uL (4.2-5.4) L 10/20/21 08:51 Hgb 8.1 g/dL (12.0-16.0) L 10/20/21 08:51 POC Hgb 11.2 g/dl (12.0-16.0) L 10/15/21 11:59 Hct 24.4 % (37-47) L 10/20/21 08:51 POC Hct 33 % (37-47) L 10/15/21 11:59 MCV 89.1 fL (80-100) 10/20/21 08:51 MCH 29.6 pg (25-34) 10/20/21 08:51 MCHC 33.2 g/dL (32-36) 10/20/21 08:51 RDW Std Deviation 48.4 fL (36.4-46.3) H 10/20/21 08:51 RDW Coeff of Griffin 15.2 % (11.5-14.5) H 10/20/21 08:51 Plt Count 30 K/uL (130-400) L D 10/20/21 08:51 Immature Gran % (Auto) 1.7 % 10/20/21 08:51 Neut % (Auto) 77.0 % 10/20/21 08:51 Lymph % (Auto) 13.2 % 10/20/21 08:51 [place] % (Auto) 7.2 % 10/20/21 08:51 Eos % (Auto) 0.6 % 10/20/21 08:51 Baso % (Auto) 0.3 % 10/20/21 08:51 Neut # (Auto) 2.68 K/uL (1.4-6.5) 10/20/21 08:51 Lymph # (Auto) 0.46 K/uL (1.2-3.4) L 10/20/21 08:51 [place] # (Auto) 0.25 K/uL (0.11-0.59) 10/20/21 08:51 Eos # (Auto) 0.02 K/uL (0-0.5) 10/20/21 08:51 Baso # (Auto) 0.01 K/uL (0-0.2) 10/20/21 08:51 Immature Gran # (Auto) 0.06 K/uL (0.00-0.02) H 10/20/21 08:51 Neutrophils % (Manual) 80.0 % 10/18/21 06:27 Lymphocytes % (Manual) 14.8 % 10/18/21 06:27 Monocytes % (Manual) 5.2 % 10/18/21 06:27 Eosinophils % (Manual) 0.9 % 10/17/21 07:39 Neutrophils # (Manual) 2.99 K/uL (1.4-6.5) 10/18/21 06:27 Total Absolute Neuts 2.99 K/uL (1.4-6.5) 10/18/21 06:27 Lymphocytes # (Manual) 0.55 K/uL (1.2-3.4) L 10/18/21 06:27 Total Abs Lymphocytes 0.55 K/uL (1.2-3.4) L 10/18/21 06:27 Monocytes # (Manual) 0.19 K/uL (0.11-0.59) 10/18/21 06:27 Eosinophils # (Manual) 0.05 K/uL (0-0.5) 10/17/21 07:39 Hyposegmented Neuts 1+ 10/15/21 11:55 Hypogranular Neuts 1+ 10/18/21 06:27 Platelet Estimate SIGNIFIC DECREASED (Normal) 10/20/21 08:51 Giant Platelets 1+ 10/18/21 06:27 POC Sodium 133 mmol/L (135-144) L 10/15/21 11:59 Sodium 134 mmol/L (136-145) L 10/20/21 08:51 POC Potassium > 9.0 mmol/L (3.3-5.0) H* 10/15/21 11:59 Potassium 3.3 mmol/L (3.5-5.1) L 10/20/21 08:51 POC Chloride 102 mmol/L (101-112) 10/15/21 11:59 Chloride 97 mmol/L (98-107) L 10/20/21 08:51 Carbon Dioxide 31 mmol/L (21-32) 10/20/21 08:51 POC Total CO2 24 mmol/L (24-31) 10/15/21 11:59 Anion Gap 6 (3-11) 10/20/21 08:51 POC Anion Gap TNP 10/15/21 11:59 POC BUN 44 mg/dl (7-18) H 10/15/21 11:59 BUN 37 mg/dl (6-23) H 10/20/21 08:51 Creatinine 1.43 mg/dl (0.6-1.2) H 10/20/21 08:51 POC Creatinine 1.5 mg/dl (0.6-1.3) H 10/15/21 11:59 Est Cr Clr Drug Dosing 34.2 ml/min 10/20/21 08:51 Est GFR ( Amer) 40.3 ml/min 10/20/21 08:51 Est GFR (Non-Af Amer) 34.7 ml/min 10/20/21 08:51 BUN/Creatinine Ratio 25.9 (10-20) H 10/20/21 08:51 Glucose 231 mg/dl (70-99(Fasting)) H 10/20/21 08:51 POC Glucose 208 mg/dl (70-99) H 10/20/21 11:24 POC Glucose (other) 296 mg/dl (70-99) H 10/15/21 11:59 Estimat Average Glucose 160 mg/dl 10/16/21 01:57 Hemoglobin A1c 7.2 % (4.5-5.6) H 10/16/21 01:57 Calcium 8.5 mg/dl (8.5-10.1) 10/20/21 08:51 POC Ioniz Calcium [place] 1.13 mmol/l (1.12-1.32) 10/15/21 11:59 Phosphorus 3.0 mg/dl (2.5-4.9) 10/19/21 07:15 Magnesium 1.9 mg/dl (1.7-2.4) 10/19/21 07:15 Total Bilirubin 1.6 mg/dl (0.2-1.0) H 10/19/21 07:15 Direct Bilirubin 0.4 mg/dl (0-0.2) H 10/19/21 07:15 AST 8 U/L (13-39) L 10/19/21 07:15 ALT 18 U/L (7-52) 10/19/21 07:15 Alkaline Phosphatase 77 U/L (34-104) 10/19/21 07:15 Troponin I High Sens 18.9 pg/ml (0-14) H 10/15/21 14:42 Total Protein 5.5 gm/dl (6.0-8.3) L 10/19/21 07:15 Albumin 3.3 gm/dl (3.4-5.0) L 10/19/21 07:15 Globulin 2.0 gm/dl (2.5-4.0) L 10/18/21 06:27 Albumin/Globulin Ratio 1.6 (0.9-2) 10/18/21 06:27 Lipase 7 U/L (11-82) L 10/15/21 11:55 Digoxin 1.1 ng/ml (0.8-2.0) 10/16/21 01:57 SARS-CoV-2, RNA, NAAT NEGATIVE (NEGATIVE) 10/15/21 12:00 Impressions Chest X-Ray 10/15/21 11:46 XR chest 1V portable HISTORY: 81 years-old Female Chest Pain . Acute atypical chest pain COMPARISON: Chest CT 08/05/2021, chest radiograph 08/02/2021 TECHNIQUE: Portable AP view of the chest FINDINGS: Cardiac silhouette is enlarged. Pulmonary vascular congestion with interstitial coarsening. Right greater than left pleural effusions with right basilar predominant consolidation redemonstrated. Degenerative changes of the shoulders and spine. IMPRESSION: 1. Cardiomegaly with pulmonary edema. 2. Right greater than left pleural effusions with right basilar predominant consolidation appears generally unchanged from the prior study. ACT 112: Negative or not required by law. The above report was generated using voice recognition software. It may contain grammatical, syntax or spelling errors. Electronically signed by: Trav Marcleo M.D. 10/15/2021 12:35 PM Hospital Course (1) Hyperkalemia: (2) Bradycardia on ECG: (3) Calcium channel elvin overdose: (4) Myelodysplastic syndrome with 5 q minus: (5) Pancytopenia: (6) Atrial fibrillation: (7) Elevated bilirubin: (8) Hypertension: (9) CKD (chronic kidney disease) stage 3, GFR 30-59 ml/min: (10) Inflammatory arthritis: (11) IDDM (insulin dependent diabetes mellitus): 81 y/o F with hx of IDDM, Afib (not on AC), Myelodysplastic syndrome with pancytopenia, HTN, Inflammatory arthritis, Spinal stenosis, hx of COVID pneumonia, hx of L breast Ca s/p lumpectomy and uterine cancer s/p BENSON, chronic prednisone use admitted for hyperkalemia with Bradycardia and Cardizem overdose. She reports having felt fatigued and accidentally took too many diltiazem the morning she arrived at the medical treatment unit for her blood transfusion. 1 unit of blood was transfused and she was noted to be persistently bradycardic. In the ER heart rate was in the 20s and 30s and labs showed pancytopenia with a significant thrombocytopenia of 24. Potassium was significantly elevated on i- STAT greater than 9. She was given 3 units of calcium gluconate, 3 A of bicarbonate, insulin and D50 as well as an hour-long nebulizer treatment of albuterol. Her heart rate trended up and she responded well to these interventions. Nephrology was consulted and patient was started on a bicarbonate drip. She was making urine and therefore given 80 mg of IV Lasix. She had already been given a liter of fluids at that point. Poison control was contacted and digitoxicity was considered however she was very responsive to the medications that were given for hyperkalemia treatment and digoxin level was only 2.1. Therefore Digibind was not given. She has persistent atrial fibrillation and this was noted on EKG on arrival. She is notably not on anticoagulation for chronic thrombocytopenia and transfusion dependent anemia. Cardizem metoprolol and digoxin were held and cardiology was consulted. Cardiology felt her current bradycardia was likely a combination of her h yperkalemia and perhaps additional doses of diltiazem taken that morning. There was some confusion by the patient on what doses of diltiazem and metoprolol she should be taking. Digoxin was stopped entirely this admission and metoprolol was held as diltiazem was reinitiated and 240 mg daily. An echocardiogram was performed revealing valvular heart disease which was unchanged from her last echo. It was not felt that this was causing significant symptoms and overall her LV systolic function was normal. She does not appear to be a good candidate for any valve intervention at this time. An elevated troponin was noted during this admission in the setting of severe anemia electrolyte disturbances and bradycardia. This was not thought to be lead generation representative of acute coronary syndrome. There was no regional wall motion abnormalities on echocardiogram. Her potassium and Bumex was held and then restarted the following day. She continued to do well and heart rate remained stable. She was hemodynamically stable on 240 mg of diltiazem and 25 mg of metoprolol daily for at least 48 hours prior to discharge. At time of discharge she was oxygenating well on room air, mentating and be ambulating at baseline and tolerating p.o. She felt well without any symptoms and was discharged in stable condition with close primary care follow-up recommended. A repeat BMP is recommended in 1 week's time as well as CBC for her known pancytopenia. As her oncology provider has changed recently it is encouraged that she establish care with this provider soon and obtain an answer on how she should proceed with her current chemotherapy regimen. Total Time Total Time Spent Total Time Spent (In Minutes): 60 Discharge Plan Discharge Items Patient Disposition: Home - Self-Care Reason For Visit: BRADYCARDIA Discharge Diagnosis: bradycardia calcium channel elvin overdose hyperkalemia Condition on Discharge: Good Activity: Resume your previous activity Non-emergency contact: Primary Care Provider Call non-emergency contact if: you have any medication questions and your symptoms worsen Follow-up/Referrals: Jose Matthews MD [Primary Care Provider] - (Date & Time 10/25/2021 10:00 AM Provider Jose Matthews MD [facility] ) Diet: Carb Consistent or DM2 and Low Potassium (2gm) Addtl Attending Provider Instructions: Please take all medications as instructed on discharge list below. Please note that you should continue potassium supplementation, and that the new potassium given below is just a larger, consolidated dose. Repeat bloodwork (non-fasting) is recommended in one week: CBC, BMP It is recommended that you follow-up with your primary care physician within one week of hospital discharge. At this appointment, labwork an be ordered and this will be to ensure you are doing well after returning home. It is also recommended that you establish care with your new oncologist. Please ask about plans for your current chemotherapy regimen during this call. It was a pleasure taking care of you! Please call if you have any questions or problems. You can reach a [facility] hospitalist on duty at [facility] 24 hours a day by calling [phone]. Take care of yourself. Quyen Alex, [facility] Hospitalist Pending Studies at Discharge: No Stand-Alone Forms: My [facility] Medications and DC Order Prescriptions: New metoprolol tartrate 25 mg Tablet 25 mg PO QAM Qty: 30 RF: 0 potassium chloride 20 mEq tablet extended release 40 meq PO DAILY Qty: 60 RF: 0 Continued rabeprazole 20 mg tablet,delayed release (DR/EC) 20 mg PO DAILY RF: 0 prednisone 5 mg tablet 5 mg PO DAILY RF: 0 tramadol 50 mg tablet 50 mg PO Q6H PRN (Reason: Pain) RF: 0 bumetanide 1 mg tablet 2 mg PO BID RF: 0 allopurinol 300 mg tablet 300 mg PO DAILY RF: 0 loratadine 10 mg Tablet 10 mg PO DAILY RF: 0 escitalopram oxalate 10 mg tablet 10 mg PO DAILY RF: 0 diltiazem HCl 240 mg capsule,extended release 24hr 240 mg PO DAILY RF: 0 insulin asp prt-insulin aspart [Novolog Mix 70-30FlexPen U-100] 100 unit/mL (70-30) insulin pen See Rx Instructions .ROUTE .COMPLEX RF: 0 Discontinued potassium chloride 10 mEq tablet extended release 30 meq PO BID RF: 0 metoprolol tartrate 50 mg tablet 50 mg PO DAILY RF: 0 digoxin 125 mcg (0.125 mg) Tablet 125 mcg PO DAILY RF: 0 Discharge Orders: Discharge Order (Routine); Ordered 10/20/21 Ordered By: Quyen Baker/Other Patient Handouts: Managing Type 2 Diabetes Admission Data Admit Date/Time: 10/15/21 13:24 Attending Provider: Quyen Alex Admit Provider: Sina Gonzalez Primary Care Provider: Jose Matthews Other Providers: Praneeth Dowell ; Sina Gonzalez ; Phil Baum
--- NOTE | 2021-10-21 10:50 | Communication Note ---
Date of Service: October 21, 2021 Contacted by ERNESTINA Lizama who said patient called and needs scripts retransmitted to [facility] in [place] instead of [facility] in [place] where they were originally sent. This was done and Walk was going to let her know of the update. sms
== END 2021-10-20 13:26 | disposition home or self-care (01) | DRG 918 ==
LOC: ED 11:32 → 2S 13:24 → SUATTDRO 13:24 → 2S 15:40

== ENCOUNTER 2021-11-15 09:23 | Inpatient (IN) ==
[2021-11-15] MEDS ORDERED: dilTIAZem HCl 5 MG/ML 5 ML VIAL IV STA (09:37)
[2021-11-15] MEDS ORDERED: dilTIAZem HCl 5 MG/ML 5 ML VIAL IV ONE (09:38)
[2021-11-15] MEDS ORDERED: STAT IV Infusion **Titration per Protocol STA (09:40)
[2021-11-15] MEDS ORDERED: SODIUM CHLORIDE 0.9% 1000ML 1,000 ML IV SCH (09:45)
[2021-11-15] MEDS: SODIUM CHLORIDE 0.9% 1000ML 500 ML IV ONE ×2 (09:51→10:29)
--- NOTE | 2021-11-15 10:00 | XRay Report ---
XR chest 1V portable HISTORY: 81 years-old Female palpitations atypical chest pain with cardiac palpitations COMPARISON: 10/15/2021 TECHNIQUE: Portable AP view of the chest FINDINGS: Cardiac silhouette is enlarged. Pulmonary vascular congestion with interstitial coarsening. Moderate- sized right pleural effusion with right greater than left bibasilar consolidation. The right pleural effusion has increased in size from the prior study. Degenerative changes of the shoulders and spine. Calcified plaque of the thoracic aorta. IMPRESSION: 1. Cardiomegaly with pulmonary edema. 2. Moderate size right pleural effusion with right basilar consolidation, progressed from the prior s tudy. ACT 112: Negative or not required by law. The above report was generated using voice recognition software. It may contain grammatical, syntax o r spelling errors. Electronically signed by: Trav Marcelo M.D. 11/15/2021 9:58 AM
--- NOTE | 2021-11-15 10:13 | Emergency Department Note ---
History of Present Illness General Chief complaint: Pain (Generalized) Stated complaint: JAW PAIN, ARM PAIN, PLATELETS ARE 3 Time Seen by Provider: 11/15/21 09:30 History of Present Illness Provider complaint: Headache jaw pain Onset (ago): day(s) 1 Location: head and mouth Radiation: non-radiation Severity: moderate Pain Consistency: + intermittent Maximum Pain Intensity: 9 Current Pain Intensity: 8 Quality: + aching and + dull Relieved By: + immobilization Exacerbated By: + eating and + movement Associated symptoms: + headaches, + shortness of breath and + weakness; no chest pain, no cough, no fever/chills, no nausea/vomiting or no seizure 81-year-old female presents emergency department from the [facility] for headache and jaw pain. Patient states last night she was trying to eat and she felt like she was going to vomit and thinks that she thought something got stuck and then she vomited. She is reporting left sided jaw pain radiating to her head and into her neck. Patient was supposed to get a transfusion of platelets today. Patient states she did not take any of her medications today. Home Medications Medication Instructions Recorded Confirmed Type allopurinol 300 mg tablet 300 mg PO DAILY 10/15/21 11/14/21 History bumetanide 1 mg tablet 2 mg PO BID 10/15/21 11/14/21 History diltiazem HCl 240 mg 240 mg PO DAILY 10/15/21 11/14/21 History capsule,extended release 24 hr escitalopram oxalate 10 mg tablet 10 mg PO DAILY 10/15/21 11/14/21 History loratadine 10 mg tablet 10 mg PO DAILY 10/15/21 11/14/21 History prednisone 5 mg tablet 5 mg PO DAILY 10/15/21 11/14/21 History rabeprazole 20 mg tablet,delayed 20 mg PO DAILY 10/15/21 11/14/21 History release (AcipHex) tramadol 50 mg tablet 50 mg PO Q6H PRN 10/15/21 11/14/21 History insulin aspar prot-insulin aspart See Rx Instructions .ROUTE .COMPLEX 10/17/21 11/14/21 History 100 unit/mL (70-30) subcutaneous pen (Novolog Mix 70-30FlexPen U-100) metoprolol tartrate 25 mg tablet 25 mg PO QAM #30 tab 10/20/21 11/14/21 Rx potassium chloride 20 mEq 40 meq PO DAILY #60 tab 10/20/21 11/14/21 Rx tablet,extended release Allergies Allergy/AdvReac Type Severity Reaction Status Date / Time hydrocodone Allergy Mild UNKNOWN Verified 11/14/21 09:19 "HAPPENED LONG TIME AGO" phenol Allergy Mild LOCALIZED Verified 11/14/21 09:19 RASH AT INJECTION SITE protamine Allergy Mild LOCALIZED Verified 11/14/21 09:19 RASH AT INJECTION SITE sodium phosphate Allergy Mild LOCALIZED Verified 11/14/21 09:19 RASH AT INJECTION SITE zinc Allergy Mild LOCALIZED Verified 11/14/21 09:19 RASH AT INJECTION SITE hydroxychloroquine AdvReac Mild "BURPED Verified 11/14/21 09:19 FOR DAYS AND TORE MY STOMACH UP" Past Med/Surg History Medical History A-fib Acute hyperkalemia Acute hypokalemia Bradycardia Diabetes Elevated troponin I level GI bleed Hx of pneumococcal pneumonia Hypertension Hypomagnesemia Malignant neoplasm of central portion of female breast (10/01/11) "Left breast pain Finding of a left breast mass Status post biopsy revealing infiltrating ductal carcinoma Status post partial mastectomy and sentinel lymph node biopsy Pathologic stage [id number] Estrogen receptor positive, progesterone receptor positive, HER-2/abelardo negative Status post completion of radiation therapy 04/08/2012 received 6120 cGy" Myelodysplastic syndrome with 5 q minus Surgical History History of hysterectomy History of lumpectomy Hx of cholecystectomy Family History Other Cancer Diabetes Social History Smoking Status: Never smoker Hx Alcohol Use: No Hx Substance Use: No Preferred Language: Zimbabwean Communication Ability: Effective Used Car 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 Required: No Beliefs That Will Affect Care: None Current Living Situation: Alone How many Children do You have: 3 Feels Safe at Home: Yes Assistive Devices: Walker Review of Systems A total of 10 systems reviewed and were otherwise negative Physical Exam Vital Signs Vital Signs - 24 hr 11/15/21 09:27 11/15/21 10:58 11/15/21 11:00 Temperature 36.8 C Temperature Source Temporal Artery Scan Pulse Rate 130 H Pulse Rate [Finger] 127 H Pulse Rhythm [Finger] Irregular Pulse Strength [Finger] Normal Respiratory Rate 16 19 Respiratory Effort / Characteristics Non-Labored Spontaneous Respiratory Depth Normal Blood Pressure 111/55 L Blood Pressure [Right Arm] 113/72 Blood Pressure Mean 73 Blood Pressure Mean [Right Arm] 85 Blood Pressure Position [Right Arm] Sitting Pulse Oximetry 99 98 97 Oxygen Delivery Method Room Air Room Air Sepsis Recent Fever Within 48 Hours No Sepsis New/Unexplained Change in Mental Status No Sepsis Action Taken by Nursing No Action Required 11/15/21 11:57 11/15/21 12:51 11/15/21 14:15 Temperature Temperature Source Pulse Rate Pulse Rate [Finger] 121 H 129 H 113 H Pulse Rhythm [Finger] Regular Irregular Regular Pulse Strength [Finger] Normal Normal Normal Respiratory Rate 18 18 18 Respiratory Effort / Characteristics Non-Labored Non-Labored Non-Labored Spontaneous Respiratory Depth Normal Normal Normal Blood Pressure Blood Pressure [Right Arm] 105/72 111/79 106/75 Blood Pressure Mean Blood Pressure Mean [Right Arm] 83 89 85 Blood Pressure Position [Right Arm] Sitting Lying Sitting Pulse Oximetry 98 96 96 Oxygen Delivery Method Room Air Room Air Room Air Sepsis Recent Fever Within 48 Hours Sepsis New/Unexplained Change in Mental Status Sepsis Action Taken by Nursing Physical Exam GENERAL: Ill-appearing. HENT: Exam performed. -Head: Normocephalic and atraumatic. -Right Ear: External ear normal. No mastoid tenderness. -Left Ear: External ear normal. No mastoid tenderness. -Mouth/Throat: No trismus in the jaw. No dental abscesses or uvula swelling. No oropharyngeal exudate or tonsillar abscesses. Wet purpura like lesion in the left posterior pharynx. EYES: Conjunctivae and EOM are normal. Pupils are equal, round, and reactive to light. Right eye exhibits no discharge. Left eye exhibits no discharge. No scleral icterus. NECK: Normal range of motion. Neck supple. No JVD present. No spinous process tenderness present. No carotid bruit present. No rigidity. No tracheal deviation and normal range of motion present. No Brudzinski's sign and no Kernig's sign noted. CV: Tachycardic rate, irregular rhythm, normal heart sounds and intact distal pulses. There is no peripheral edema. Palpable radial pulses bue. PULM/CHEST: Right-sided diminished breath sounds. ABD: The abdomen is soft and obese. Bowel sounds are normal. She has no distension. No mass is present. There is no tenderness. LYMPH: No cervical adenopathy. NEURO: She is alert and oriented to person, place, and time. She has normal strength. No cranial nerve deficit or sensory deficit. GCS eye subscore is 4. GCS verbal subscore is 5. GCS motor subscore is 6. Cerebellar tests wnl. SKIN: Ecchymosis over the bilateral upper extremities. Paraparetic lesions over the anterior chest wall and anterior abdominal wall. Course Course 929: The patient was evaluated in room a10. A complete history and physical exam was performed Cardiac monitoring: An order was placed for continuous cardiac monitoring. The monitor shows a rate of 120-145 with atrial fibrilation rhythm Saline Lock was established and patient was given 15 mg of Cardizem IV push which improved the patient's ventricular rate 100-120. Patient will be started on Cardizem drip. 1321: Vital signs stable on Cardizem drip.Labs show white count of 2.13, hemoglobin 7.7, platelet count of 3. INR 1.5. Magnesium 1.3. Magnesium within will be started in the emergency department. Total bilirubin 1.9. Direct bilirubin 0.5. Troponin elevated 157.1. Patient reporting no chest pain or d ifficulty breathing. The troponin elevation is thought to be due to demand ischemia given the patient's rapid ventricular rate with A. fib that is now controlled on the Cardizem drip. Spoke with Dr. Barrientos heme-onc who recommends transfusing patient 1 unit packed red blood cells as well as 1 unit of platelets. She states 1 hour after the 1 unit of platelets are done transfusing to recheck the platelet level. She states that he is not sure if the patient will respond to platelet transfusion and if they do not she will need to order steroids. She states that she can be contacted to determine this. She also recommends ordering an LDH and haptoglobin level. 1445: Vital signs stable on Cardizem drip. CT and imaging within normal limits. [facility] discussed with Cecille states to admit to Dr. Eleonora Mccabe Administered Medications Sodium Chloride (Nss 1000ml) 1,000 mls @ 125 mls/hr IV .Q8H LEONA Stop: 12/15/21 09:44 Last Admin: 11/15/21 10:29 Dose: 125 mls/hr Documented by: [id number] Diltiazem HCl 125 mg/ Dextrose 125 mls @ 7.5 mls/hr IV .[id number] LEONA; Protocol Stop: 12/15/21 09:44 Last Titration: 11/15/21 12:50 Dose: 10 mg/hr, 10 mls/hr Documented by: [id number] Cosigned by: [id number] Titration: 11/15/21 11:56 Dose: 7.5 mg/hr, 7.5 mls/hr Documented by: [id number] Cosigned by: [id number] Admin: 11/15/21 10:28 Dose: 5 mg/hr, 5 mls/hr Documented by: [id number] Cosigned by: [id number] Discontinued Medications Diltiazem HCl (Diltiazem Hcl 5 Mg/Ml 5 Ml Vial) 15 mg IV NOW STA Stop: 11/15/21 09:38 Last Admin: 11/15/21 09:47 Dose: 15 mg Documented by: [id number] Cosigned by: [id number] Diltiazem HCl (Diltiazem Hcl 5 Mg/Ml 5 Ml Vial) Confirm Administered Dose 25 mg IV .STK-MED ONE Stop: 11/15/21 09:39 Last Admin: 11/15/21 10:32 Dose: Not Given Documented by: [id number] Sodium Chloride (Nss 1000ml) 500 mls @ 999 mls/hr IV .Q31M ONE Stop: 11/15/21 10:08 Last Admin: 11/15/21 10:29 Dose: 999 mls/hr Documented by: [id number] Admin: 11/15/21 09:51 Dose: 999 mls/hr Documented by: [id number] Ioversol (Optiray 320 100ml) 95 ml IV ONCE ONE Stop: 11/15/21 13:46 Last Admin: 11/15/21 13:25 Dose: 95 ml Documented by: [id number] Morphine Sulfate (Morphine Sulfate 2 Mg/Ml Carp) 2 mg IV NOW STA Stop: 11/15/21 10:55 Last Admin: 11/15/21 11:01 Dose: 2 mg Documented by: [id number] Morphine Sulfate (Morphine Sulfate 4 Mg/Ml 1 Ml Carp\\Vial) 4 mg IV NOW STA Stop: 11/15/21 12:54 Last Admin: 11/15/21 13:00 Dose: 4 mg Documented by: [id number] Critical Care Time Critical Care Time: Yes Total Critical Care Time: 97 I have personally spent greater than 97 minutes of critical care time in the dir ect management of this patient. This includes bedside care, interpretation of diagnostic studies, and testing, discussion with consultants, patient, and family members, and other required patient management activities. This 97 minutes is in excess of all separately billable procedures. Medical Decision Making Laboratory Data Result diagrams: 11/15/21 11:49 11/15/21 11:49 Lab Results 11/15/21 11/15/21 11/15/21 Range/Units 10:00 10:09 10:09 WBC Cancelled RBC Cancelled Hgb Cancelled Hct Cancelled MCV Cancelled MCH Cancelled MCHC Cancelled RDW Std Deviation Cancelled RDW Coeff of Griffin Cancelled Plt Count Cancelled MPV Cancelled Immature Gran % (Auto) Cancelled Neut % (Auto) Cancelled Lymph % (Auto) Cancelled Cook % (Auto) Cancelled Eos % (Auto) Cancelled Baso % (Auto) Cancelled Neut # (Auto) Cancelled Lymph # (Auto) Cancelled Cook # (Auto) Cancelled Eos # (Auto) Cancelled Baso # (Auto) Cancelled Immature Gran # (Auto) Cancelled Absolute Nucleated RBC Cancelled Nucleated RBC % (auto) Cancelled Neutrophils % (Manual) Cancelled Band Neutrophils % Cancelled Lymphocytes % (Manual) Cancelled Prolymphocyte % Cancelled Reactive Lymphs % (Man) Cancelled Monocytes % (Manual) Cancelled Eosinophils % (Manual) Cancelled Basophils % (Manual) Cancelled Metamyelocytes % (Man) Cancelled Myelocytes % (Man) Cancelled Promyelocytes % (Man) Cancelled Blast Cells % (Manual) Cancelled Plasma Cell % (Manual) Cancelled Other Cells % Cancelled Nucleated RBC % Cancelled Neutrophils # (Manual) Cancelled Band Neutrophils # Cancelled Total Absolute Neuts Cancelled Lymphocytes # (Manual) Cancelled Prolymphocyte # Cancelled Reactive Lymphs # Cancelled Total Abs Lymphocytes Cancelled Monocytes # (Manual) Cancelled Eosinophils # (Manual) Cancelled Basophils # (Manual) Cancelled Metamyelocytes # (Man) Cancelled Myelocytes # (Manual) Cancelled Promyelocytes # (Man) Cancelled Blast Cells # (Man) Cancelled Plasma Cell # (Manual) Cancelled Other Cells # Cancelled Nucleated RBCs # (Man) Cancelled Hypersegmented Neuts Cancelled Hyposegmented Neuts Cancelled Hypogranular Neuts Cancelled Large Granular Lymphs Cancelled # Lrg Granular Lymphs Cancelled Hairy Cells Cancelled Smudge Cells Cancelled Toxic Granulation Cancelled Toxic Vacuolation Cancelled Dohle Bodies Cancelled Ej Rods Cancelled Platelet Estimate Cancelled Hypogranular Platelets Cancelled Clumped Platelets Cancelled Giant Platelets Cancelled Platelet Satelliting Cancelled RBC Morphology Cancelled Polychromasia Cancelled Hypochromasia Cancelled Poikilocytosis Cancelled Basophilic Stippling Cancelled Anisocytosis Cancelled Microcytosis Cancelled Macrocytosis Cancelled Spherocytes Cancelled Pappenheimer Bodies Cancelled Sickle Cells Cancelled Target Cells Cancelled Tear Drop Cells Cancelled Ovalocytes Cancelled Stomatocytes Cancelled Chase-Calwa Bodies Cancelled Echinocytes Cancelled Acanthocytes (Spur) Cancelled Rouleaux Cancelled RBC Agglutinates Cancelled Schistocytes Cancelled RBC Morph Comment Cancelled Sezary Cell Cancelled PT (9.0-12.0) Seconds INR (0.9-1.1) APTT (21.0-31.0) Seconds PTT Ratio Sodium Potassium Chloride Carbon Dioxide Anion Gap BUN Creatinine Est Cr Clr Drug Dosing Est GFR ( Amer) Est GFR (Non-Af Amer) BUN/Creatinine Ratio Glucose Calcium Magnesium Total Bilirubin Direct Bilirubin AST ALT Alkaline Phosphatase Troponin I High Sens Total Protein Albumin Lipase SARS-CoV-2, RNA, NAAT NEGATIVE (NEGATIVE) Blood Type Cancelled Antibody Screen Cancelled Crossmatch 11/15/21 11/15/21 11/15/21 Range/Units 10:09 10:09 10:09 WBC RBC Hgb Hct MCV MCH MCHC RDW Std Deviation RDW Coeff of Griffin Plt Count MPV Immature Gran % (Auto) Neut % (Auto) Lymph % (Auto) Cook % (Auto) Eos % (Auto) Baso % (Auto) Neut # (Auto) Lymph # (Auto) Cook # (Auto) Eos # (Auto) Baso # (Auto) Immature Gran # (Auto) Absolute Nucleated RBC Nucleated RBC % (auto) Neutrophils % (Manual) Band Neutrophils % Lymphocytes % (Manual) Prolymphocyte % Reactive Lymphs % (Man) Monocytes % (Manual) Eosinophils % (Manual) Basophils % (Manual) Metamyelocytes % (Man) Myelocytes % (Man) Promyelocytes % (Man) Blast Cells % (Manual) Plasma Cell % (Manual) Other Cells % Nucleated RBC % Neutrophils # (Manual) Band Neutrophils # Total Absolute Neuts Lymphocytes # (Manual) Prolymphocyte # Reactive Lymphs # Total Abs Lymphocytes Monocytes # (Manual) Eosinophils # (Manual) Basophils # (Manual) Metamyelocytes # (Man) Myelocytes # (Manual) Promyelocytes # (Man) Blast Cells # (Man) Plasma Cell # (Manual) Other Cells # Nucleated RBCs # (Man) Hypersegmented Neuts Hyposegmented Neuts Hypogranular Neuts Large Granular Lymphs # Lrg Granular Lymphs Hairy Cells Smudge Cells Toxic Granulation Toxic Vacuolation Dohle Bodies Ej Rods Platelet Estimate Hypogranular Platelets Clumped Platelets Giant Platelets Platelet Satelliting RBC Morphology Polychromasia Hypochromasia Poikilocytosis Basophilic Stippling Anisocytosis Microcytosis Macrocytosis Spherocytes Pappenheimer Bodies Sickle Cells Target Cells Tear Drop Cells Ovalocytes Stomatocytes Chase-Calwa Bodies Echinocytes Acanthocytes (Spur) Rouleaux RBC Agglutinates Schistocytes RBC Morph Comment Sezary Cell PT 15.4 H (9.0-12.0) Seconds INR 1.5 H (0.9-1.1) APTT 47.5 H* (21.0-31.0) Seconds PTT Ratio 1.7 Sodium Cancelled Potassium Cancelled Chloride Cancelled Carbon Dioxide Cancelled Anion Gap Cancelled BUN Cancelled Creatinine Cancelled Est Cr Clr Drug Dosing Cancelled Est GFR ( Amer) Cancelled Est GFR (Non-Af Amer) Cancelled BUN/Creatinine Ratio Cancelled Glucose Cancelled Calcium Cancelled Magnesium Cancelled Total Bilirubin Cancelled Direct Bilirubin Cancelled AST Cancelled ALT Cancelled Alkaline Phosphatase Cancelled Troponin I High Sens Cancelled Total Protein Cancelled Albumin Cancelled Lipase Cancelled SARS-CoV-2, RNA, NAAT (NEGATIVE) Blood Type Antibody Screen Crossmatch 11/15/21 11/15/21 11/15/21 Range/Units 11:49 11:49 11:49 WBC 2.13 L RBC 2.63 L Hgb 7.7 L Hct 22.5 L MCV 85.6 MCH 29.3 MCHC 34.2 RDW Std Deviation 45.2 RDW Coeff of Griffin 14.5 Plt Count 3 L* MPV Immature Gran % (Auto) 1.9 Neut % (Auto) 79.3 Lymph % (Auto) 15.0 Cook % (Auto) 3.8 Eos % (Auto) 0.0 Baso % (Auto) 0.0 Neut # (Auto) 1.69 Lymph # (Auto) 0.32 L Cook # (Auto) 0.08 L Eos # (Auto) 0.00 Baso # (Auto) 0.00 Immature Gran # (Auto) 0.04 H Absolute Nucleated RBC Nucleated RBC % (auto) Neutrophils % (Manual) Band Neutrophils % Lymphocytes % (Manual) Prolymphocyte % Reactive Lymphs % (Man) Monocytes % (Manual) Eosinophils % (Manual) Basophils % (Manual) Metamyelocytes % (Man) Myelocytes % (Man) Promyelocytes % (Man) Blast Cells % (Manual) Plasma Cell % (Manual) Other Cells % Nucleated RBC % Neutrophils # (Manual) Band Neutrophils # Total Absolute Neuts Lymphocytes # (Manual) Prolymphocyte # Reactive Lymphs # Total Abs Lymphocytes Monocytes # (Manual) Eosinophils # (Manual) Basophils # (Manual) Metamyelocytes # (Man) Myelocytes # (Manual) Promyelocytes # (Man) Blast Cells # (Man) Plasma Cell # (Manual) Other Cells # Nucleated RBCs # (Man) Hypersegmented Neuts Hyposegmented Neuts Hypogranular Neuts 1+ Large Granular Lymphs # Lrg Granular Lymphs Hairy Cells Smudge Cells Toxic Granulation Toxic Vacuolation Dohle Bodies Ej Rods Platelet Estimate SIGNIFIC DECREASED Hypogranular Platelets Clumped Platelets Giant Platelets 1+ Platelet Satelliting RBC Morphology Polychromasia Hypochromasia Poikilocytosis Basophilic Stippling Anisocytosis Microcytosis Macrocytosis Spherocytes Pappenheimer Bodies Sickle Cells Target Cells Tear Drop Cells Ovalocytes Stomatocytes Chase-Calwa Bodies Echinocytes Acanthocytes (Spur) Rouleaux RBC Agglutinates Schistocytes RBC Morph Comment Sezary Cell PT (9.0-12.0) Seconds INR (0.9-1.1) APTT (21.0-31.0) Seconds PTT Ratio Sodium 134 L Potassium 3.6 D Chloride 103 Carbon Dioxide 23 Anion Gap 8 BUN 37 H Creatinine 1.23 H Est Cr Clr Drug Dosing 39.6 Est GFR ( Amer) 48.3 Est GFR (Non-Af Amer) 41.7 BUN/Creatinine Ratio 30.1 H Glucose 148 H Calcium 8.2 L Magnesium 1.3 L Total Bilirubin 1.9 H Direct Bilirubin 0.5 H AST 7 L ALT 12 Alkaline Phosphatase 86 Troponin I High Sens 157.1 H* Total Protein 5.5 L Albumin 3.5 Lipase 9 L SARS-CoV-2, RNA, NAAT (NEGATIVE) Blood Type O Positive Antibody Screen NEGATIVE Crossmatch See Detail Imaging Data Radiologist's Impression: Chest X-Ray 11/15/21 09:39 XR chest 1V portable HISTORY: 81 years-old Female palpitations atypical chest pain with cardiac palpitations COMPARISON: 10/15/2021 TECHNIQUE: Portable AP view of the chest FINDINGS: Cardiac silhouette is enlarged. Pulmonary vascular congestion with interstitial coarsening. Moderate-sized right pleural effusion with right greater than left bibasilar consolidation. The right pleural effusion has increased in size from the prior study. Degenerative changes of the shoulders and spine. Calcified plaque of the thoracic aorta. IMPRESSION: 1. Cardiomegaly with pulmonary edema. 2. Moderate size right pleural effusion with right basilar consolidation, progressed from the prior study. ACT 112: Negative or not required by law. The above report was generated using voice recognition software. It may contain grammatical, syntax or spelling errors. Electronically signed by: Trav Marcelo M.D. 11/15/2021 9:[address] 11/15/21 09:39 CT SCAN OF THE FACIAL BONES WITH IV CONTRAST CLINICAL HISTORY: Headaches. Left jaw pain. COMPARISON STUDY: No priors. TECHNIQUE: High-resolution CT scan of the facial bones is performed following the IV administration of 95 cc of Optiray 320. Images are reviewed in the axial, sagittal, and coronal planes. IV contrast was administered without complication. A dose lowering technique was utilized adhering to the principles of ALARA. CT DOSE: 1289.64 mGy.cm FINDINGS: The skeletal structures are osteopenic. There is no evidence of facial bone fracture. The bony orbits are intact and the orbital contents are within normal limits noting bilateral ocular lens implants. The zygomatic arches, nasal bones, and pterygoid plates are preserved. The maxilla and mandible are intact. There are no layering blood products within the paranasal sinuses. The paranasal sinuses are clear. There is a small right mastoid effusion. The left mastoid air cells are well pneumatized. The visualized calvarium and upper cervical spine are maintained. Partially imaged brain parenchyma is within normal limits. There are numerous dental caries. A periapical lucency with overlying cortical breakthrough is seen involving the right maxillary canine. No additional periapical lucency is identified. There is no evidence of periodontal abscess or overlying cellulitis. No soft tissue inflammation is seen. Imaged portions of the carotid arteries and jugular veins are patent. IMPRESSION: 1. There is no evidence of facial bone fracture. 2. Numerous dental caries as above as well as a large periapical lucency involving the right maxillary canine. Follow-up with dentistry is recommended. 3. There is no evidence of overlying cellulitis or periodontal abscess. ACT 112: Negative or not required by law. Electronically signed by: Ritesh Hirsch M.D. 11/15/2021 1:[address] 11/15/21 09:39 CT head/brain wo con CLINICAL HISTORY: 81 years-old Female with hutchinson plateletts low. Acute headache TECHNIQUE: Multiple axial CT images of the head were obtained without contrast. A dose lowering technique was utilized adhering to the principles of ALARA. COMPARISON: CT maxillofacial same day, head CT 05/22/2017 FINDINGS: No acute intracranial hemorrhage, midline shift, intracranial mass, hydrocephalus, territorial ischemia or abnormal extra-axial collection. Age- related involutional changes. White matter hypodensities suggest chronic microvascular ischemic disease. The study is motion degraded. 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 Cerebral vascular calcifications. The calvarium is intact. Prior bilateral lens repair. The paranasal sinuses, mastoid air cells, and middle ear cavities are clear. IMPRESSION: No acute intracranial abnormality. ACT 112: Negative or not required by law. The above report was generated using voice recognition software. It may contain grammatical, syntax or spelling errors. Electronically signed by: Trav Marcelo M.D. 11/15/2021 1:42 PM ECG Data Additional Comments: EKG #1 at 0936: Atrial fibrillation with a rate of 137. QRS and QTc intervals within normal limits. No ST elevation or ST depression. EKG #2 at 1019 status post Cardizem bolus: Atrial fibrillation with rate of 125. QRS [address] elevation or ST depression. [facility] Narrative 0930: The patient was evaluated in room a10. A complete history and physical exam was performed Cardiac monitoring: An order was placed for continuous cardiac monitoring. The monitor shows a rate of 120-145 with atrial fibrilation rhythm Saline Lock was established and patient was given 15 mg of Cardizem IV push which improved the patient's ventricular rate 100-120. Patient will be started on Cardizem drip. 1321: Vital signs stable on Cardizem drip.Labs show white count of 2.13, hemoglobin 7.7, platelet count of 3. INR 1.5. Magnesium 1.3. Magnesium within will be started in the emergency department. Total bilirubin 1.9. Direct bilirubin 0.5. Troponin elevated 157.1. Patient reporting no chest pain or difficulty breathing. The troponin elevation is thought to be due to demand ischemia given the patient's rapid ventricular rate with A. fib that is now controlled on the Cardizem drip. Spoke with Dr. Floyd najera-onc who recommends transfusing patient 1 unit packed red blood cells as well as 1 unit of platelets. She states 1 hour after the 1 unit of platelets are done transfusing to recheck the platelet level. She states that he is not sure if the patient will respond to platelet transfusion and if they do not she will need to order steroids. She states that she can be contacted to determine this. She also recommends ordering an LDH and haptoglobin level. 1445: Vital signs stable on Cardizem drip. CT and imaging within normal limits. [facility] discussed with Cecille states to admit to Dr. Eleonora Mccabe Impression & Plan Atrial fibrillation with rapid ventricular response, Anemia, Hypomagnesemia, MDS (myelodysplastic syndrome), Thrombocytopenia Discharge Plan Visit Data Chief Complaint: Pain (Generalized) Stated Complaint: JAW PAIN, ARM PAIN, PLATELETS ARE 3 ED Provider: Hema Casarez Discharge Problem: Atrial fibrillation with rapid ventricular response, Anemia, Hypomagnesemia, MDS (myelodysplastic syndrome), Thrombocytopenia Patient Disposition: Admitted As Inpatient Forms Stand Alone Forms: [facility] Prescriptions Prescriptions: No Action rabeprazole [AcipHex] 20 mg tablet,delayed release (DR/EC) 20 mg PO DAILY RF: 0 prednisone 5 mg tablet 5 mg PO DAILY RF: 0 tramadol 50 mg tablet 50 mg PO Q6H PRN (Reason: Pain) RF: 0 bumetanide 1 mg tablet 2 mg PO BID RF: 0 allopurinol 300 mg tablet 300 mg PO DAILY RF: 0 loratadine 10 mg Tablet 10 mg PO DAILY RF: 0 escitalopram oxalate 10 mg tablet 10 mg PO DAILY RF: 0 diltiazem HCl 240 mg capsule,extended release 24hr 240 mg PO DAILY RF: 0 insulin asp prt-insulin aspart [Novolog Mix 70-30FlexPen U-100] 100 unit/mL (70-30) insulin pen See Rx Instructions .ROUTE .COMPLEX RF: 0 metoprolol tartrate 25 mg Tablet 25 mg PO QAM Qty: 30 RF: 0 potassium chloride 20 mEq tablet extended release 40 meq PO DAILY Qty: 60 RF: 0 Referrals Referrals: Jose Matthews MD [Primary Care Provider] - Discharge Problem: Anemia Qualifiers: Anemia type: unspecified type Qualified Code(s): D64.9 - Anemia, unspecified
[2021-11-15] MEDS: dilTIAZem HCL 125 MG in DEXTROSE 5% 100 ML IV SCH ×2 (10:28→22:14)
[2021-11-15 10:48] LABS: INR 1.5 (0.9-1.1); Partial Thromboplastin Ratio 1.7; Prothrombin Time 15.4 Seconds (9.0-12.0)
[2021-11-15 10:53] LABS: Partial Thromboplastin Time 47.5 Seconds (21.0-31.0)
[2021-11-15] MEDS ORDERED: MoRPHine SULFATE 2 MG/ML CARP IV STA (10:54)
[2021-11-15 12:24] LABS: Hematocrit (blood only) 22.5 % (37-47); Hemoglobin 7.7 g/dL (12.0-16.0); Mean Corpuscular Hemoglobin 29.3 pg (25-34); Mean Corpuscular Volume 85.6 fL (80-100); Platelet Count 3 K/uL (130-400); RDW Coefficient of Variation 14.5 % (11.5-14.5); RDW Standard Deviation 45.2 fL (36.4-46.3); Red Blood Count 2.63 M/uL (4.2-5.4); White Blood Count 2.13 K/uL (4.8-10.8)
[2021-11-15 12:35] LABS: Mean Corpuscular Hgb Conc 34.2 g/dL (32-36)
[2021-11-15 12:36] LABS: Giant Platelets 1+; Hypogranular Neutrophils 1+; Immature Granulocytes # (auto) 0.04 K/uL (0.00-0.02); Immature Granulocytes % (auto) 1.9 %; Lymphocytes # (auto) 0.32 K/uL (1.2-3.4); Monocytes # (auto) 0.08 K/uL (0.11-0.59); Monocytes % (auto) 3.8 %; Neutrophils # (auto) 1.69 K/uL (1.4-6.5); Neutrophils % (auto) 79.3 %; Platelet Estimate SIGNIFIC DECREASED (Normal)
[2021-11-15] MEDS ORDERED: MoRPHine SULFATE 4 MG/ML 1 ML CARP\\VIAL IV STA (12:53)
[2021-11-15 13:06] LABS: Albumin Level 3.5 gm/dl (3.4-5.0); BUN Creatinine Ratio 30.1 (10-20); Bilirubin Direct 0.5 mg/dl (0-0.2); Bilirubin,Total 1.9 mg/dl (0.2-1.0); Calcium 8.2 mg/dl (8.5-10.1); Creatinine Clr Calc Pharmacy 39.6 ml/min; Est GFR (African American) 48.3 ml/min; Est GFR (Non-African American) 41.7 ml/min; Magnesium 1.3 mg/dl (1.7-2.4); Potassium 3.6 mmol/L (3.5-5.1); Total Protein 5.5 gm/dl (6.0-8.3); Troponin I High Sensitivity 157.1 pg/ml (0-14)
[2021-11-15] MEDS ORDERED: SODIUM CHLORIDE 0.9% 250 ML IV PRN (13:22)
--- NOTE | 2021-11-15 13:43 | CT Scan Report ---
CT SCAN OF THE FACIAL BONES WITH IV CONTRAST CLINICAL HISTORY: Headaches. Left jaw pain. COMPARISON STUDY: No priors. TECHNIQUE: High-resolution CT scan of the facial bones is performed following the IV administration of 95 cc of Optiray 320. Images are reviewed in the axial, sagittal, and coronal planes. IV contrast was administered without complication. A dose lowering technique was utilized adhering to the princi ples of LEX. CT DOSE: 1289.64 mGy.cm FINDINGS: The skeletal structures are osteopenic. There is no evidence of facial bone fracture. The b wisam orbits are intact and the orbital contents are within normal limits noting bilateral ocular lens implants. The zygomatic arches, nasal bones, and pterygoid plates are preserved. The maxilla and ismael ible are intact. There are no layering blood products within the paranasal sinuses. The paranasal sin uses are clear. There is a small right mastoid effusion. The left mastoid air cells are well pneumati zed. The visualized calvarium and upper cervical spine are maintained. Partially imaged brain parench yma is within normal limits. There are numerous dental caries. A periapical lucency with overlying co rtical breakthrough is seen involving the right maxillary canine. No additional periapical lucency is identified. There is no evidence of periodontal abscess or overlying cellulitis. No soft tissue infl ammation is seen. Imaged portions of the carotid arteries and jugular veins are patent. IMPRESSION: 1. There is no evidence of facial bone fracture. 2. Numerous dental caries as above as well as a large periapical lucency involving the right maxillar y canine. Follow-up with dentistry is recommended. 3. There is no evidence of overlying cellulitis or periodontal abscess. ACT 112: Negative or not required by law. Electronically signed by: Ritesh Hirsch M.D. 11/15/2021 1:42 PM
--- NOTE | 2021-11-15 13:43 | CT Scan Report ---
CT head/brain wo con CLINICAL HISTORY: 81 years-old Female with hutchinson plateletts low. Acute headache TECHNIQUE: Multiple axial CT images of the head were obtained without contrast. A dose lowering tech nique was utilized adhering to the principles of ALARA. COMPARISON: CT maxillofacial same day, head CT 05/22/2017 FINDINGS: No acute intracranial hemorrhage, midline shift, intracranial mass, hydrocephalus, territorial ischem ia or abnormal extra-axial collection. Age-related involutional changes. White matter hypodensities s uggest chronic microvascular ischemic disease. The study is motion degraded. Chronic appearing mid ri ght cerebellar lacunar infarct is new from the prior study. Cerebral vascular calcifications. The calvarium is intact. Prior bilateral lens repair. The paranasal sinuses, mastoid air cells, and m iddle ear cavities are clear. IMPRESSION: No acute intracranial abnormality. ACT 112: Negative or not required by law. The above report was generated using voice recognition software. It may contain grammatical, syntax o r spelling errors. Electronically signed by: Trav Marcelo M.D. 11/15/2021 1:42 PM
[2021-11-15] MEDS ORDERED: OPTIRAY 320 100ml IV ONE (13:45)
--- NOTE | 2021-11-15 14:59 | History & Physical Report ---
Date of Service November 15, 2021 Assessment & Plan (1) Atrial fibrillation with rapid ventricular response: Plan: Patient is 81 y/o F with PMH MDS, pancytopenia, insulin-dependent DM II, HTN, atrial fibrillation not on anticoagulation, spinal stenosis, chronic low back p ain, inflammatory arthritis, chronic prednisone use, h/o left breast cancer s/p lumpectomy, h/o uterine cancer s/p hysterectomy presented to ER from [facility] for elevated heart rate. In ER afib RVR rates in 130's started on Cardizem drip HR down to 116. BP stable Pt missed medications this morning Denies sensation heart racing or palpitations, dizziness or chest pain Continue Cardizem drip Not on anticoagulation secondary to pancytopenia Dose missed metoprolol tartrate now Continue metoprolol tartrate. Hold Cardizem while on drip Last discharge in 10/2021 was taken off of digoxin History echo 11/11/2021: EF: 60-65%, mild concentric LVH, aortic valve sclerosis without stenosis, mild AR, mild to moderate MR, moderate TR Cardiology consult Elevated troponin High sensitivity troponin: 157 May be secondary to demand ischemia from Afib RVR Trend troponin EKG prn CP EKG in am (2) MDS (myelodysplastic syndrome): (3) Pancytopenia: Plan: Hgb: 7.7, PLT: 3 CT Head: no acute intracranial abnormality No reported bleeding Transfuse 1 unit PRBC, 1 unit platelet per heme-onc recommendations Recheck CBC 1 hour after platelet transfusion and discuss with care information associate (4) Acute on chronic diastolic (congestive) heart failure: Plan: CXR: Cardiomegaly with pulmonary edema. Moderate size right pleural effusion with right basilar consolidation, progressed from the prior study. History echo 11/11/2021: EF: 60-65%, mild concentric LVH, aortic valve sclerosis without stenosis, mild AR, mild to moderate MR, moderate TR Start Lasix 40mg IV BID and hold home Bumex for now Monitor I's & O's and daily weight (5) Hypomagnesemia: Plan: Magnesium: 1.3 Replace and monitor (6) CKD (chronic kidney disease), stage III: Plan: Cr: 1.2. Baseline ~1.3-1.6 Monitor renal functions, avoid nephrotoxic agents when possible (7) Insulin dependent diabetes mellitus: Plan: A1c: 7.2 on 10/2021 Continue insulin. Glycemic pharmacy consult (8) Rheumatoid arthritis: (9) Chronic steroid use: Plan: Continue prednisone (10) Lumbar spinal stenosis: Plan: Chronic Back pain Continue tramadol prn (11) Gout: Plan: Continue allopurinol DVT Prophylaxis SCDs Full Code as per discussion with pt Follows with Dr Matthews for routine care Pt was seen and care coordinated with Dr Mccabe. See addendum History of Present Illness Chief Complaint: Elevated heart rate Primary Care Provider: Jose Matthews MD Patient is 81 y/o F with PMH MDS, pancytopenia, insulin-dependent DM II, HTN, atrial fibrillation not on anticoagulation, spinal stenosis, chronic low back pain, inflammatory arthritis, chronic prednisone use, h/o left breast cancer s/p lumpectomy, h/o uterine cancer s/p hysterectomy presented to ER from [facility] for elevated heart rate. Patient with history of chronic pancytopenia and receives transfusions intermittently. Reports feeling weak the past couple of days. Today presented to [facility] for platelet transfusion and was found to have A. fib RVR and referred to ER. Did not have any medication this morning other than tramadol as she states she was feeling weak and she does not like to take her medications on an empty stomach. Reports last night choked on water and had some coughing. After coughing had some discomfort upper chest. Last night started with bilateral ear discomfort radiating to jaw bilaterally and also c/o ENRIQUEZ. Denies any current chest pain or shortness of breath. Denies sensation of heart racing, dizziness. Did not have her diuretic, reports noted this morning ankles are swollen. Denies fever/chills, diaphoresis, N/V/D/C, dizziness, syncope, vision changes, neck pain, orthopnea, palpitations, sore throat, choking, otalgia, rhinorrhea, abdominal pain, paresthesias, rashes, urinary symptoms. Patient with recent hospitalization 10/15/2021 for bradycardia, accidentally taking additional Cardizem. Patient was discharged on reduced dose of metoprolol tartrate 25 mg from 50 mg daily. She was continued on her diltiazem 240 mg daily and digoxin was discontinued. Allergies Allergy/AdvReac Type Severity Reaction Status Date / Time hydrocodone Allergy Mild UNKNOWN Verified 11/15/21 15:36 "HAPPENED LONG TIME AGO" phenol Allergy Mild LOCALIZED Verified 11/15/21 15:36 RASH AT INJECTION SITE protamine Allergy Mild LOCALIZED Verified 11/15/21 15:36 RASH AT INJECTION SITE sodium phosphate Allergy Mild LOCALIZED Verified 11/15/21 15:36 RASH AT INJECTION SITE zinc Allergy Mild LOCALIZED Verified 11/15/21 15:36 RASH AT INJECTION SITE hydroxychloroquine AdvReac Mild "BURPED Verified 11/15/21 15:36 FOR DAYS AND TORE MY STOMACH UP" Home Medications Medication Instructions Recorded Confirmed Type allopurinol 300 mg tablet 300 mg PO DAILY 10/15/21 11/15/21 History bumetanide 1 mg tablet 2 mg PO BID 10/15/21 11/15/21 History diltiazem HCl 240 mg 240 mg PO DAILY 10/15/21 11/15/21 History capsule,extended release 24 hr escitalopram oxalate 10 mg tablet 10 mg PO DAILY 10/15/21 11/15/21 History loratadine 10 mg tablet 10 mg PO DAILY 10/15/21 11/15/21 History prednisone 5 mg tablet 5 mg PO DAILY 10/15/21 11/15/21 History rabeprazole 20 mg tablet,delayed 20 mg PO DAILY 10/15/21 11/15/21 History release (AcipHex) tramadol 50 mg tablet 50 mg PO Q6H PRN 10/15/21 11/15/21 History insulin aspar prot-insulin aspart See Rx Instructions .ROUTE .COMPLEX 10/17/21 11/15/21 History 100 unit/mL (70-30) subcutaneous pen (Novolog Mix 70-30FlexPen U-100) metoprolol tartrate 25 mg tablet 25 mg PO QAM #30 tab 10/20/21 11/15/21 Rx atorvastatin 20 mg tablet 20 mg PO DAILY 11/15/21 11/15/21 History Past Med/Surg History Medical History (Updated 11/15/21 @ 16:03 by Annia Martinez PA-C) A-fib Acute hyperkalemia Acute hypokalemia Bradycardia CKD (chronic kidney disease), stage III Diabetes Elevated troponin I level GI bleed Hx of pneumococcal pneumonia Hypertension Hypomagnesemia Insulin dependent diabetes mellitus Malignant neoplasm of central portion of female breast (10/01/11) "Left breast pain Finding of a left breast mass Status post biopsy revealing infiltrating ductal carcinoma Status post partial mastectomy and sentinel lymph node biopsy Pathologic stage [id number] Estrogen receptor positive, progesterone receptor positive, HER-2/abelardo negative Status post completion of radiation therapy 04/08/2012 received 6120 cGy" Myelodysplastic syndrome with 5 q minus Surgical History History of hysterectomy History of lumpectomy Hx of cholecystectomy Family History Other Cancer Diabetes Social History Smoking Status: Never smoker Hx Alcohol Use: No Hx Substance Use: No Preferred Language: Italian Communication Ability: Effective 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 Beliefs That Will Affect Care: None Current Living Situation: Alone How many Children do You have: 3 Feels Safe at Home: Yes Assistive Devices: Walker Review of Systems Review of Systems: All systems reviewed & are unremarkable except as noted in HPI & below Physical Exam Physical Exam: General: no acute distress, obese Head: normocephalic, atraumatic Eyes: conjunctiva non-injected, anicteric ENT: normal inspection external ears, nose, mucous membranes moist Neck: supple, trachea midline Lungs: clear, no respiratory distress, no wheezing/rhonchi/rales CV: irregularly irregular, rate 130, 2+ pretibial edema Abd: protuberant, normal BS, soft, non-tender Ext: no cyanosis, no calf tenderness Neuro: A&O x 3, no focal deficits noted, normal affect Skin: warm, dry, +petechiae noted upper extremities Results & Data Results & Data ([facility]) Vital Signs (Past 12 Hours) Vital Signs Temp Pulse Pulse Resp BP BP Pulse Ox 11/15/21 14:15 113 H 18 106/75 96 11/15/21 12:51 129 H 18 111/79 96 11/15/21 11:57 121 H 18 105/72 98 11/15/21 11:00 97 11/15/21 10:58 127 H 19 113/72 98 11/15/21 09:27 36.8 C 130 H 16 111/55 L 99 Laboratory Results Short CBC 11/15/21 11/15/21 11/15/21 Range/Units 10:09 10:09 11:49 WBC Cancelled 2.13 L Hgb Cancelled 7.7 L Hct Cancelled 22.5 L Plt Count Cancelled 3 L* Blood Type Cancelled Antibody Screen Cancelled Crossmatch 11/15/21 Range/Units 11:49 WBC Hgb Hct Plt Count Blood Type O Positive Antibody Screen NEGATIVE Crossmatch See Detail BMP 11/15/21 11/15/21 10:09 11:49 Sodium Cancelled 134 L Potassium Cancelled 3.6 D Chloride Cancelled 103 Carbon Dioxide Cancelled 23 BUN Cancelled 37 H Creatinine Cancelled 1.23 H Glucose Cancelled 148 H Calcium Cancelled 8.2 L Liver Function 11/15/21 11/15/21 Range/Units 10:09 11:49 Total Bilirubin Cancelled 1.9 H Direct Bilirubin Cancelled 0.5 H AST Cancelled 7 L ALT Cancelled 12 Alkaline Phosphatase Cancelled 86 Albumin Cancelled 3.5 Diagnostic Findings Chest X-Ray 11/15/21 09:39 XR chest 1V portable HISTORY: 81 years-old Female palpitations atypical chest pain with cardiac palpitations COMPARISON: 10/15/2021 TECHNIQUE: Portable AP view of the chest FINDINGS: Cardiac silhouette is enlarged. Pulmonary vascular congestion with interstitial coarsening. Moderate-sized right pleural effusion with right greater than left bibasilar consolidation. The right pleural effusion has increased in size from the prior study. Degenerative changes of the shoulders and spine. Calcified plaque of the thoracic aorta. IMPRESSION: 1. Cardiomegaly with pulmonary edema. 2. Moderate size right pleural effusion with right basilar consolidation, progressed from the prior study. ACT 112: Negative or not required by law. The above report was generated using voice recognition software. It may contain grammatical, syntax or spelling errors. Electronically signed by: Trav Marcelo M.D. 11/15/2021 9:[address] 11/15/21 09:39 CT SCAN OF THE FACIAL BONES WITH IV CONTRAST CLINICAL HISTORY: Headaches. Left jaw pain. COMPARISON STUDY: No priors. TECHNIQUE: High-resolution CT scan of the facial bones is performed following the IV administration of 95 cc of Optiray 320. Images are reviewed in the axial, sagittal, and coronal planes. IV contrast was administered without complication. A dose lowering technique was utilized adhering to the principles of ALARA. CT DOSE: 1289.64 mGy.cm FINDINGS: The skeletal structures are osteopenic. There is no evidence of facial bone fracture. The bony orbits are intact and the orbital contents are within normal limits noting bilateral ocular lens implants. The zygomatic arches, nasal bones, and pterygoid plates are preserved. The maxilla and mandible are intact. There are no layering blood products within the paranasal sinuses. The paranasal sinuses are clear. There is a small right mastoid effusion. The left mastoid air cells are well pneumatized. The visualized calvarium and upper cervical spine are maintained. Partially imaged brain parenchyma is within normal limits. There are numerous dental caries. A periapical lucency with overlying cortical breakthrough is seen involving the right maxillary canine. No additional periapical lucency is identified. There is no evidence of periodontal abscess or overlying cellulitis. No soft tissue inflammation is seen. Imaged portions of the carotid arteries and jugular veins are patent. IMPRESSION: 1. There is no evidence of facial bone fracture. 2. Numerous dental caries as above as well as a large periapical lucency involving the right maxillary canine. Follow-up with dentistry is recommended. 3. There is no evidence of overlying cellulitis or periodontal abscess. ACT 112: Negative or not required by law. Electronically signed by: Ritesh Hirsch M.D. 11/15/2021 1:[address] 11/15/21 09:39 CT head/brain wo con CLINICAL HISTORY: 81 years-old Female with enriquez plateletts low. Acute headache TECHNIQUE: Multiple axial CT images of the head were obtained without contrast. A dose lowering technique was utilized adhering to the principles of ALARA. COMPARISON: CT maxillofacial same day, head CT 05/22/2017 FINDINGS: No acute intracranial hemorrhage, midline shift, intracranial mass, h ydrocephalus, territorial ischemia or abnormal extra-axial collection. Age- related involutional changes. White matter hypodensities suggest chronic microvascular ischemic disease. The study is motion degraded. 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 Cerebral vascular calcifications. The calvarium is intact. Prior bilateral lens repair. The paranasal sinuses, mastoid air cells, and middle ear cavities are clear. IMPRESSION: No acute intracranial abnormality. ACT 112: Negative or not required by law. The above report was generated using voice recognition software. It may contain grammatical, syntax or spelling errors. Electronically signed by: Trav Marcelo M.D. 11/15/2021 1:42 PM Code Status & VTE Plan VTE Prophylaxis Plan VTE Prophylaxis will be ordered: Yes Supervising Physician Co-Signing Physician Notes Date of Service: November 15, 2021 History and physical exam performed by me. History notable for 81-year-old woman With history of DM type II, A. fib off anticoagulation, MDS, chronic pancytopenia, hypertension, gout, inflammatory polyarthritis, breast cancer, CKD 3 who presents from [facility] for A. fib. Patient was recently hospitalized last month for bradycardia, unintentional potassium channel overdose and hyperkalemia. Adjustments were made to medications on discharge. Patient reports not feeling very well this morning, associated with headache and weakness. Took only her tramadol this morning and did not take any other of her usual medications. Went to [facility] for blood transfusion and was noted to be in A. fib and sent to the ER. Exam notable for elderly woman, obese, in no obvious distress, tachycardic, irregularly irregular pulse, bilateral pitting pedal edema Labs notable for pancytopenia, platelet of 3000, creatinine of 1.23, magnesium of 1.3, bilirubin of 1.9, troponin at bedtime of 157. CXR noted cardiomegaly with pulmonary edema, moderate right pleural effusion with right basilar consolidation progressed from prior study. Atrial fibrillation with rapid ventricular rate Possibly related to poor medication adherence Considering leg edema, pulm edema, moderate Rt pleural effusion on XR, likely acute on chronic diastolic heart failure Resume home metoprolol po Currently on cardizem drip IV lasix 40mg bid Cards c/s Trend trop CT head/facial CT in view of headache and severe thrombocytopenia were negative for hemorrhage Give 1 PRBC and 1 platelet. Follow up with Hem/Onc. Agree with other plans as detailed by Annia Martinez PA-C
[2021-11-15] MEDS ORDERED: METOPROLOL TARTRATE 25 MG TAB PO STA (15:07)
--- NOTE | 2021-11-15 15:21 | Communication Note ---
Date of Service: November 15, 2021 History and physical exam performed by me. History notable for 81-year-old woman With history of DM type II, A. fib off anticoagulation, MDS, chronic pancytopenia, hypertension, gout, inflammatory polyarthritis, breast cancer, CKD 3 who presents from [facility] for A. fib. Patient was recently hospitalized last month for bradycardia, unintentional potassium channel overdose and hyperkalemia. Adjustments were made to medications on discharge. Patient reports not feeling very well this morning, associated with headache and weakness. Took only her tramadol this morning and did not take any other of her usual medications. Went to [facility] for blood transfusion and was noted to be in A. fib and sent to the ER. Exam notable for elderly woman, obese, in no obvious distress, tachycardic, irregularly irregular pulse, bilateral pitting pedal edema Labs notable for pancytopenia, platelet of 3000, creatinine of 1.23, magnesium of 1.3, bilirubin of 1.9, troponin at bedtime of 157. CXR noted cardiomegaly with pulmonary edema, moderate right pleural effusion with right basilar consolidation progressed from prior study. Atrial fibrillation with rapid ventricular rate Possibly related to poor medication adherence Considering leg edema, pulm edema, moderate Rt pleural effusion on XR, likely acute on chronic diastolic heart failure Resume home metoprolol po Currently on cardizem drip IV lasix 40mg bid Cards c/s Trend trop CT head/facial CT in view of headache and severe thrombocytopenia were negative for hemorrhage Give 1 PRBC and 1 platelet. Follow up with Hem/Onc. Agree with other plans as detailed by Annia Martinez PA-C
[2021-11-15] MEDS ORDERED: MAGNESIUM SULFATE / D5W 1 GM/100 ML BAG IV STA (15:22)
[2021-11-15] MEDS ORDERED: FUROSEMIDE 40 MG/4 ML VIAL IV ONE ×2 (15:45→21:41)
[2021-11-15] MEDS ORDERED: DEXTROSE 50% 50 ML SYRINGE IV PRN (16:59)
[2021-11-15] MEDS ORDERED: MAGNESIUM SULFATE / D5W 1 GM/100 ML BAG IV ONE (16:59)
[2021-11-15] MEDS ORDERED: GLUCOSE 40% GEL 15 GM TUBE PO PRN (16:59)
[2021-11-15] MEDS ORDERED: ONDANSETRON INJ 2 MG/ML 2 ML VIAL IV PRN (16:59)
[2021-11-15] MEDS ORDERED: POLYETHYLENE (MIRALAX) 17 GM PACK PO PRN (16:59)
[2021-11-15] MEDS ORDERED: GLUCAGON FOR INJ 1 MG VIAL SQ PRN (16:59)
[2021-11-15] MEDS ORDERED: GLUCOSE 10 TABS/TUBE PO PRN (16:59)
[2021-11-15] MEDS ORDERED: CARBOHYDRATES FOR HYPOGLYCEMIA PO PRN (16:59)
[2021-11-15] MEDS ORDERED: PHARMACY GLYCEMIC MGMT CONSULT PRN (16:59)
[2021-11-15] MEDS: INSULIN ASPART PER UNIT SC SCH ×2 (18:04→21:25)
[2021-11-15 18:26] LABS: Hematocrit (blood only) 21.9 % (37-47); Hemoglobin 7.5 g/dL (12.0-16.0); Mean Corpuscular Hemoglobin 29.6 pg (25-34); Mean Corpuscular Hgb Conc 34.2 g/dL (32-36); Mean Corpuscular Volume 86.6 fL (80-100); Platelet Count 2 K/uL (130-400); RDW Coefficient of Variation 14.4 % (11.5-14.5); RDW Standard Deviation 45.4 fL (36.4-46.3); Red Blood Count 2.53 M/uL (4.2-5.4); White Blood Count 2.26 K/uL (4.8-10.8)
[2021-11-15 18:28] LABS: Platelet Estimate SIGNIFIC DECREASED (Normal)
[2021-11-15] MEDS: ACETAMINOPHEN 325 MG TAB PO PRN (21:02)
[2021-11-15] MEDS: INSULIN HUMAN NPH SC SCH (21:26)
[2021-11-16] MEDS ORDERED: INSULIN ASPART PER UNIT SC SCH
[2021-11-16 01:20] LABS: Partial Thromboplastin Time 34.8 Seconds (21.0-31.0)
[2021-11-16 01:21] LABS: Partial Thromboplastin Ratio 1.3
[2021-11-16] MEDS ORDERED: HEPARIN SOD (PORCINE) 1000 UNIT/ML IV ONE (02:00)
[2021-11-16] MEDS: ACETAMINOPHEN 325 MG TAB PO PRN ×4 (04:04→19:25)
[2021-11-16 06:47] LABS: Hematocrit (blood only) 22.2 % (37-47); Hemoglobin 7.7 g/dL (12.0-16.0); Mean Corpuscular Hemoglobin 29.5 pg (25-34); Mean Corpuscular Hgb Conc 34.7 g/dL (32-36); Mean Corpuscular Volume 85.1 fL (80-100); Platelet Count 2 K/uL (130-400); RDW Coefficient of Variation 14.2 % (11.5-14.5); RDW Standard Deviation 43.8 fL (36.4-46.3); Red Blood Count 2.61 M/uL (4.2-5.4); White Blood Count 2.16 K/uL (4.8-10.8)
[2021-11-16 06:53] LABS: ANC (manual) 1.56 K/uL (1.4-6.5); Basophils # (manual) 0.02 K/uL (0-0.2); Basophils % (manual) 0.9 %; Blast # (manual) 0.06 K/uL (0-0); Blast Cells % (manual) 2.6 %; Lymphocytes % (manual) 18.3 %; Monocytes # (manual) 0.13 K/uL (0.11-0.59); Monocytes % (manual) 6.1 %; Neutrophils # (manual) 1.56 K/uL (1.4-6.5); Neutrophils % (manual) 72.1 %; Platelet Estimate SIGNIFIC DECREASED (Normal)
[2021-11-16 07:01] LABS: BUN Creatinine Ratio 28.5 (10-20); Creatinine Clr Calc Pharmacy 30.8 ml/min; Est GFR (African American) 35.7 ml/min; Est GFR (Non-African American) 30.8 ml/min; Magnesium 1.8 mg/dl (1.7-2.4); Potassium 4.1 mmol/L (3.5-5.1)
--- NOTE | 2021-11-16 08:06 | Cardiology Consultation ---
Date of Consultation November 16, 2021 Assessment & Plan (1) Atrial fibrillation with rapid ventricular response: (2) Elevated troponin: (3) Jaw pain: (4) Edema of both legs: 1. Atrial fibrillation: She presented with atrial fibrillation with rapid ventricular response which sounds as though it is due to medication noncompliance. I think we should switch her back to her typical outpatient medications and I have ordered those and discontinue the intravenous diltiazem. 2. Elevated troponin: She did have an elevated troponin on presentation however the level has dropped and it does not seem compatible with an acute ischemic event. I think it is demand ischemia, possibly in the setting of underlying coronary artery disease. Even though she may have underlying coronary artery disease however without symptoms I would not pursue further evaluation. 3. Jaw pain: It is conceivable that her jaw pain is an anginal equivalent. That is little bit worrisome, and that would suggest a need to evaluate her coronary arteries. Still with a dropping troponin and a reason for her to have an elevated troponin I am reluctant to take her to the [facility] today, especially with her other underlying hematologic issues. 4. Edema: She does have significant edema and I agree with diuresis. This may help her feel better as well. History of Present Illness Reason for Consultation: Atrial fibrillation with rapid ventricular response Attending Physician: Pradip Paige MD History of Present Illness This is a 81-year-old woman, patient of Dr. Lyn although has not been in the office since before 2017, with a history of diabetes mellitus, hypertension and atrial fibrillation. She also has a history of MDS with pancytopenia, left breast cancer and uterine cancer. In the past she had paroxysmal atrial fibrillation. Additionally she has had a nuclear perfusion scan March 2017 with no evidence of ischemia and by echocardiography in 2016 she had normal left ventricular systolic function with aortic sclerosis without stenosis but elevated pulmonary pressures. She was hospitalized in June 2017 with atrial fibrillation with a rapid heart rate and was discharged the next day, she was not seen by cardiology until August 03, 2021 when she presented with shortness of breath and lower extremity edema. Echocardiography at that time showed normal left ventricular size and function with concentric left ventricular hypertrophy and severe left atrial dilatation. She was hospitalized again October 16, 2021 with bradycardia (in atrial fibrillation) which may have been due to medication errors. At that point she was off of anticoagulation possibly due to bleeding. Her medications were adjusted and she was discharged in several days without anticoagulation. An echocardiogram October 15, 2021 shows normal left ventricular size and function with no wall motion abnormalities and mild concentric left ventricular hypertrophy. Similar to July 2021. She presented to the emergency room on November 15, 2021 in atrial fibrillation with a rapid heart rate, evidently missing her medications in the morning. She remains off of anticoagulation due to pancytopenia. An electrocardiogram on presentation November 15, 2021 showed atrial fibrillation with a heart rate of 137 bpm with what appears to be an anterior myocardial infarction, this pattern was observed in October 2021 although in July 2021 the precordial Q waves were less prominent. An echocardiogram however did not suggest wall motion abnormalities. A repeat electrocardiogram 1 hour later was similar, and electrocardiogram this morning on November 16, 2021 shows atrial fibrillation at 99 bpm with the same anterior Q wave pattern. She has been feeling better since starting intravenous diltiazem, however she is complaining of jaw discomfort which has been present since she came to the hospital. She does not have any chest discomfort but has not had this jaw discomfort before. She currently does not have palpitations and she has not had lightheadedness or dizziness. She does admit to not taking her medications on the morning of November 15, 2021 because she had to go into the office and she was running late. Allergies Allergy/AdvReac Type Severity Reaction Status Date / Time hydrocodone Allergy Mild UNKNOWN Verified 11/15/21 15:36 "HAPPENED LONG TIME AGO" phenol Allergy Mild LOCALIZED Verified 11/15/21 15:36 RASH AT INJECTION SITE protamine Allergy Mild LOCALIZED Verified 11/15/21 15:36 RASH AT INJECTION SITE sodium phosphate Allergy Mild LOCALIZED Verified 11/15/21 15:36 RASH AT INJECTION SITE zinc Allergy Mild LOCALIZED Verified 11/15/21 15:36 RASH AT INJECTION SITE hydroxychloroquine AdvReac Mild "BURPED Verified 11/15/21 15:36 FOR DAYS AND TORE MY STOMACH UP" Home Medications Medication Instructions Recorded Confirmed Type allopurinol 300 mg tablet 300 mg PO DAILY 10/15/21 11/15/21 History bumetanide 1 mg tablet 2 mg PO BID 10/15/21 11/15/21 History diltiazem HCl 240 mg 240 mg PO DAILY 10/15/21 11/15/21 History capsule,extended release 24 hr escitalopram oxalate 10 mg tablet 10 mg PO DAILY 10/15/21 11/15/21 History loratadine 10 mg tablet 10 mg PO DAILY 10/15/21 11/15/21 History prednisone 5 mg tablet 5 mg PO DAILY 10/15/21 11/15/21 History rabeprazole 20 mg tablet,delayed 20 mg PO DAILY 10/15/21 11/15/21 History release (AcipHex) tramadol 50 mg tablet 50 mg PO Q6H PRN 10/15/21 11/15/21 History insulin aspar prot-insulin aspart See Rx Instructions .ROUTE .COMPLEX 10/17/21 11/15/21 History 100 unit/mL (70-30) subcutaneous pen (Novolog Mix 70-30FlexPen U-100) metoprolol tartrate 25 mg tablet 25 mg PO QAM #30 tab 10/20/21 11/15/21 Rx atorvastatin 20 mg tablet 20 mg PO DAILY 11/15/21 11/15/21 History Patient History Medical History A-fib Acute hyperkalemia Acute hypokalemia Bradycardia CKD (chronic kidney disease), stage III Diabetes Elevated troponin I level GI bleed Hx of pneumococcal pneumonia Hypertension Hypomagnesemia Insulin dependent diabetes mellitus Malignant neoplasm of central portion of female breast (10/01/11) "Left breast pain Finding of a left breast mass Status post biopsy revealing infiltrating ductal carcinoma Status post partial mastectomy and sentinel lymph node biopsy Pathologic stage [id number] Estrogen receptor positive, progesterone receptor positive, HER-2/abelardo negative Status post completion of radiation therapy 04/08/2012 received 6120 cGy" Myelodysplastic syndrome with 5 q minus Surgical History History of hysterectomy History of lumpectomy Hx of cholecystectomy Family History Other Cancer Diabetes Social History Smoking Status: Never smoker Hx Alcohol Use: No Hx Substance Use: No Preferred Language: Arabic Communication Ability: Effective Spool Maker Required: No Beliefs That Will Affect Care: None Current Living Situation: Alone How many Children do You have: 3 Other Information That Helps Us Care for You: No Feels Safe at Home: Yes Safety Concerns: Feels Safe At This Time Assistive Devices: Glasses and Walker Physical Exam Physical Exam: Constitutional: Alert, cooperative and in no distress. HEENT: Unremarkable Neck: No jugular venous distention, carotid pulses are irregular but otherwise normal and equal bilaterally without bruits. Pulmonary: Clear to auscultation bilaterally. Cardiac: Irregular rhythm with no murmur, gallop or rub. Abdomen: Soft, nontender with normal bowel sounds. Extremities: No edema. Distal pulses intact. Neurologic: No focal findings. Gait is steady. Skin: No rash, ecchymoses or petechiae. Results & Data ([facility]) Vital Signs (Past 12 Hours) Vital Signs Temp Pulse Pulse Resp BP BP Pulse Ox 11/16/21 06:56 36.8 C 101 H 17 115/69 99 11/16/21 03:16 36.8 C 100 H 18 106/65 97 11/16/21 00:09 36.9 C 94 H 20 118/70 97 11/15/21 23:13 98 H 11/15/21 21:47 36.6 C 96 H 20 98/60 L 97 11/15/21 20:42 36.8 C 96 H 20 115/69 97 Laboratory Results Cardiac Enzymes 11/15/21 11/15/21 11/15/21 Range/Units 10:09 10:09 11:49 AST Cancelled 7 L Lactate Dehydrogenase (86-244) U/L Troponin I High Sens Cancelled 157.1 H* 11/15/21 11/15/21 11/15/21 Range/Units 17:15 17:15 22:51 AST Lactate Dehydrogenase 109 (86-244) U/L Troponin I High Sens 176.6 H* 171.7 H* 11/16/21 Range/Units 05:15 AST Lactate Dehydrogenase (86-244) U/L Troponin I High Sens 134.0 H* D Coagulation 11/15/21 11/16/21 Range/Units 10:09 00:57 PT 15.4 H (9.0-12.0) Seconds APTT 47.5 H* 34.8 H (21.0-31.0) Seconds CBC 11/15/21 11/15/21 11/15/21 Range/Units 10:09 11:49 17:15 WBC Cancelled 2.13 L 2.26 L RBC Cancelled 2.63 L 2.53 L Hgb Cancelled 7.7 L 7.5 L Hct Cancelled 22.5 L 21.9 L Plt Count Cancelled 3 L* 2 L* Neut # (Auto) Cancelled 1.69 Lymph # (Auto) Cancelled 0.32 L [place] # (Auto) Cancelled 0.08 L Eos # (Auto) Cancelled 0.00 Baso # (Auto) Cancelled 0.00 11/16/21 Range/Units 05:15 WBC 2.16 L RBC 2.61 L Hgb 7.7 L Hct 22.2 L Plt Count 2 L* Neut # (Auto) Lymph # (Auto) [place] # (Auto) Eos # (Auto) Baso # (Auto) Comprehensive Metabolic Panel 11/15/21 11/15/21 11/16/21 Range/Units 10:09 11:49 05:15 Sodium Cancelled 134 L 132 L Potassium Cancelled 3.6 D 4.1 Chloride Cancelled 103 100 Carbon Dioxide Cancelled 23 23 BUN Cancelled 37 H 45 H Creatinine Cancelled 1.23 H 1.58 H D Glucose Cancelled 148 H 87 Calcium Cancelled 8.2 L 8.0 L Direct Bilirubin Cancelled 0.5 H AST Cancelled 7 L ALT Cancelled 12 Alkaline Phosphatase Cancelled 86 Total Protein Cancelled 5.5 L Albumin Cancelled 3.5 Intake and Output 11/15/21 11/16/21 11/16/21 22:59 06:59 14:59 Intake Total 2046.750 / 2588.500 440 / 2588.500 87.667 / 87.667 Output Total 250 / 250 Balance 2046.750 / 2338.500 190 / 2338.500 87.667 / 87.667 Intake: IV 1407.750 / 1509.500 87.667 / 87.667 Magnesium Sulfate / D5w 1 gm In 200 / 200 100 ml @ 50 mls/hr IV ONE ONE Rx#:[id number] Sodium Chloride 0.9% 1000ML 1, 1106.25 / 1106.25 000 ml @ 125 mls/hr IV .Q8H [facility] Rx#:[id number] dilTIAZem HCL 125 mg In 101.500 / 203.250 87.667 / 87.667 Dextrose 5% 100 ml @ 10 MG/HR 10 mls/hr IV .[id number] [facility] Rx#: [id number] Oral 440 / 440 Intake (Blood Product) Amt 639 / 639 Packed Cells, Leukoreduced 310 / 310 Unit [id number] Pr Plp2 Unit [id number] 329 / 329 Output: Urine 250 / 250 Other: Weight 94 kg 93.7 kg Weight Measurement Method [facility] Diagnostic Findings Telemetry: Atrial fibrillation, initially the heart rate was elevated, on intravenous diltiazem the heart rate has averaged about 100 bpm. PG Care Time/CCT Total # of Minutes Spent Total Time Spent with Patient: Total time spent is greater than 50% in coordination of care (as documented) at patient's floor/unit and/or counseling patient: Coding Level of Care Code 13253 Initial Inpt Care Lvl 3 Diagnoses Atrial fibrillation with rapid ventricular response I48.91 Elevated troponin R77.8 Jaw pain R68.84 Edema of both legs R60.0
[2021-11-16] MEDS: INSULIN ASPART PER UNIT SC SCH ×4 (08:13→20:59)
[2021-11-16] MEDS ORDERED: METOPROLOL TARTRATE 25 MG TAB PO SCH (09:00)
[2021-11-16] MEDS: INSULIN HUMAN NPH SC SCH ×2 (09:00→17:12)
[2021-11-16] MEDS ORDERED: INSULIN HUMAN NPH SC SCH (09:00)
[2021-11-16] MEDS: FUROSEMIDE 40 MG/4 ML VIAL IV SCH ×2 (09:21→17:12)
[2021-11-16] MEDS: PANTOprazole 40 MG TAB PO SCH (09:26)
[2021-11-16] MEDS: ESCITALOPRAM OXALATE 10 MG TAB PO SCH (09:27)
[2021-11-16] MEDS: LORATADINE 10 MG TAB PO SCH (09:28)
[2021-11-16] MEDS: allopurinoL 300 MG TAB PO SCH (09:29)
[2021-11-16] MEDS: predniSONE 5 MG TAB PO SCH (09:29)
[2021-11-16] MEDS: ATORVASTATIN 20 MG TAB PO SCH (09:30)
[2021-11-16] MEDS: dilTIAZem HCL 240 MG CAPCR PO SCH (13:08)
[2021-11-16] MEDS: METOPROLOL SUCC 25MG EXT REL TAB PO SCH (13:08)
--- NOTE | 2021-11-16 14:20 | Pharmacy Report ---
Pharmacy Glycemic Short Note 2 - Date of Service November 16, 2021 - Glycemic Short BSG Results (Last 24 hours): 11/15/21 11/15/21 11/16/21 17:26 20:58 00:07 Glucose POC Glucose 271 H 237 H 167 H 11/16/21 11/16/21 11/16/21 05:15 07:34 12:07 Glucose 87 POC Glucose 92 140 H OUTPATIENT ANTIDIABETIC REGIMEN: * Novolog Mix 70/30 35 units SQ QAM; 28 units SQ with dinner ASSESSMENT: * 81 y/o F admitted for A Fib. Patient with history of Type 2 diabetes managed at home on Novolog mix insulin BID. * Patient was admitted here last month. At that time she was ordered NPH insulin for basal coverage and Novolog bolus. Continued the same. * She received 20 units of NPH last night. Fasting BSG this AM was 87 mg/dl. * NPH 20 units ordered this AM (slightly reduced from 30 units that she was on d uring recent admission). Continued with 20 units at dinner. * Novolog parameters based on stress of 2. PLAN FOR INPATIENT GLYCEMIC CONTROL: * Basal insulin * NPH 20 units SQ BID with morning and evening meals * Bolus insulin * NovoLog per scale ACHS or Q6hrs while NPO * Goal Range: Low 120 mg/dL - High 160 mg/dL * Correction Factor: 25 mg/dL/unit * Nutritional / Prandial insulin per carb ratio of 1 unit per 8 grams CHO consumed
[2021-11-16] MEDS: traMADol HCL 50 MG TABLET PO PRN (17:30)
--- NOTE | 2021-11-16 18:08 | Hospitalist Progress Note ---
Date of Service November 16, 2021 Assessment & Plan (1) Atrial fibrillation with rapid ventricular response: Plan: Patient is 81 y/o F with PMH MDS, pancytopenia, insulin-dependent DM II, HTN, atrial fibrillation not on anticoagulation, spinal stenosis, chronic low back p ain, inflammatory arthritis, chronic prednisone use, h/o left breast cancer s/p lumpectomy, h/o uterine cancer s/p hysterectomy presented to ER from [facility] for elevated heart rate. Possible related to medication noncompliance EKG on admission showed afib RVR rates in 130's She was started on cardizem drip Most recent echo 11/11/2021: EF: 60-65%, mild concentric LVH, aortic valve sclerosis without stenosis, mild AR, mild to moderate MR, moderate TR Rate improved cardiology on board IV Cardizem drip was discontinued then transition to PO Cardizem Continue Metoprolol 25mg daily Continue monitor Elevated troponin Mostly demand ischemia due to Afib RVR High sensitivity troponin: 157, then peaked to 176 and now trending down 134 Denies any chest pain currently Continue statin, metoprolol Not a candidate for antiplatelet due to low platelet Continue monitor closely (2) MDS (myelodysplastic syndrome): (3) Pancytopenia: Plan: Hgb: 7.7, PLT: 3 CT Head: no acute intracranial abnormality No sign of active bleeding S/P 1 unit PRBC and 1 unit platelet on 11/15/21 Will discussed with hematology (4) Acute on chronic diastolic (congestive) heart failure: Plan: CXR: Cardiomegaly with pulmonary edema. Moderate size right pleural effusion with right basilar consolidation, progressed from the prior study. Last Echo on 11/11/2021: EF: 60-65%, mild concentric LVH, aortic valve sclerosis without stenosis, mild AR, mild to moderate MR, moderate TR Continue Lasix 40mg IV BID Monitor I's & O's and daily weight Will repeat CXR in am (5) Hypomagnesemia: Plan: Magnesium: 1.3 on admission, Magnesium 1.8 today Continue monitor (6) CKD (chronic kidney disease), stage III: Plan: Creatine 1.5 tday, Baseline ~1.3-1.6 Continue monitor (7) Insulin dependent diabetes mellitus: Plan: Most recent A1c: 7.2 on 10/2021 Pharmacy on board for glycemic management Continue NPH and novolog sliding scale Continue monitor BS (8) Rheumatoid arthritis: (9) Chronic steroid use: Plan: Continue prednisone (10) Lumbar spinal stenosis: Plan: Chronic Back pain Continue tramadol prn (11) Gout: Plan: Continue allopurinol DVT Prophylaxis SCDs Full Code Admission and Anticipated Discharge Date Admission Date: November 15, 2021 Subjective Pt was seen and examined for follow up of Afib with RVR, weakness and jaw pain Sitting at the edge of the bed with no acute distress watching TV She said that she feels weak. She said that she had a coughing spell Whenever she coughs or takes a deep breath she said that she had left side chest discomfort that radiated to left upper back She said that she does not feels much in her energy compare to when she came Review of Systems Review of Systems: All systems reviewed & are unremarkable except as noted in Subjective Physical Exam Physical Exam: General- No acute distress Head- atraumatic Eyes- PERRL, EOMI, ENT- oropharynx clear Neck- supple, no JVD Lungs- clear to auscultation Heart- regular rhythm; no murmur Abdomen- normal bowel sounds, soft, nontender Extremities- no calf tenderness Neuro- alert, oriented x 3; PERRL, EOMI; no facial palsy; no dysarthria Skin- warm & dry Results & Data Results & Data ([facility]) Vital Signs (Past 12 Hours) Vital Signs Temp Pulse Pulse Resp BP Pulse Ox Pulse Ox 11/16/21 15:27 36.5 C 104 H 16 101/65 94 11/16/21 12:41 36.8 C 84 18 147/76 H 97 11/16/21 08:00 98 H 99 11/16/21 06:56 36.8 C 101 H 17 115/69 99
[2021-11-17] MEDS: ACETAMINOPHEN 325 MG TAB PO PRN ×5 (00:35→21:38)
[2021-11-17 06:20] LABS: Hematocrit (blood only) 21.3 % (37-47); Hemoglobin 7.2 g/dL (12.0-16.0); Mean Corpuscular Hemoglobin 29.1 pg (25-34); Mean Corpuscular Hgb Conc 33.8 g/dL (32-36); Mean Corpuscular Volume 86.2 fL (80-100); Platelet Count 2 K/uL (130-400); RDW Coefficient of Variation 14.1 % (11.5-14.5); RDW Standard Deviation 44.5 fL (36.4-46.3); Red Blood Count 2.47 M/uL (4.2-5.4); White Blood Count 1.95 K/uL (4.8-10.8)
[2021-11-17 06:21] LABS: Platelet Estimate SIGNIFIC DECREASED (Normal)
[2021-11-17 06:46] LABS: BUN Creatinine Ratio 29.5 (10-20); Calcium 8.2 mg/dl (8.5-10.1); Creatinine Clr Calc Pharmacy 28.1 ml/min; Est GFR (Non-African American) 27.6 ml/min; Magnesium 1.8 mg/dl (1.7-2.4); Potassium 3.6 mmol/L (3.5-5.1)
[2021-11-17] MEDS: traMADol HCL 50 MG TABLET PO PRN (07:55)
--- NOTE | 2021-11-17 07:55 | Electrocardiogram Report ---
Test Reason : Blood Pressure : / mmHG Vent. Rate : 137 BPM Atrial Rate : 202 BPM P-R Int : 000 ms QRS Dur : 080 ms QT Int : 310 ms P-R-T Axes : 000 038 140 degrees QTc Int : 468 ms Atrial fibrillation with rapid ventricular response Low voltage QRS Cannot rule out Anteroseptal infarct (cited on or before 23-APR-2020) Abnormal ECG When compared with ECG of 17-OCT-2021 06:05, Vent. rate has increased BY 70 BPM Non-specific change in ST segment in Inferior leads Confirmed by Praneeth Dowell ([id number]) on 11/17/2021 7:54:48 AM Referred By: REFERRED SELF Confirmed By:Praneeth Dowell
[2021-11-17] MEDS: predniSONE 5 MG TAB PO SCH (07:56)
--- NOTE | 2021-11-17 07:56 | Electrocardiogram Report ---
Test Reason : Blood Pressure : / mmHG Vent. Rate : 125 BPM Atrial Rate : 120 BPM P-R Int : 000 ms QRS Dur : 078 ms QT Int : 322 ms P-R-T Axes : 000 046 132 degrees QTc Int : 464 ms Atrial fibrillation with rapid ventricular response Low voltage QRS Cannot rule out Anteroseptal infarct (cited on or before 23-APR-2020) Abnormal ECG When compared with ECG of 15-NOV-2021 09:36, (unconfirmed) No significant change was found Confirmed by Praneeth Dowell ([id number]) on 11/17/2021 7:56:03 AM Referred By: REFERRED SELF Confirmed By:Praneeth Dowell
[2021-11-17] MEDS: dilTIAZem HCL 240 MG CAPCR PO SCH (07:57)
[2021-11-17] MEDS: ESCITALOPRAM OXALATE 10 MG TAB PO SCH (07:57)
[2021-11-17] MEDS: METOPROLOL SUCC 25MG EXT REL TAB PO SCH (07:57)
[2021-11-17] MEDS: ATORVASTATIN 20 MG TAB PO SCH (07:57)
[2021-11-17] MEDS: LORATADINE 10 MG TAB PO SCH (07:57)
[2021-11-17] MEDS: allopurinoL 300 MG TAB PO SCH (07:57)
[2021-11-17] MEDS: PANTOprazole 40 MG TAB PO SCH (07:57)
[2021-11-17] MEDS: INSULIN HUMAN NPH SC SCH ×2 (07:58→16:53)
[2021-11-17] MEDS: FUROSEMIDE 40 MG/4 ML VIAL IV SCH ×2 (07:58→17:09)
[2021-11-17] MEDS: INSULIN ASPART PER UNIT SC SCH ×4 (08:05→20:23)
--- NOTE | 2021-11-17 08:33 | Electrocardiogram Report ---
Test Reason : Blood Pressure : / mmHG Vent. Rate : 099 BPM Atrial Rate : 087 BPM P-R Int : 000 ms QRS Dur : 080 ms QT Int : 362 ms P-R-T Axes : 000 061 060 degrees QTc Int : 464 ms Atrial fibrillation Anterior infarct (cited on or before 23-APR-2020) Abnormal ECG When compared with ECG of 15-NOV-2021 10:19, (unconfirmed) No significant change Confirmed by Praneeth oDwell ([id number]) on 11/17/2021 8:32:58 AM Referred By: REFERRED SELF Confirmed By:Praneeth Dowell
--- NOTE | 2021-11-17 12:01 | Cardiology Progress Note ---
Date of Service November 17, 2021 Assessment & Plan (1) Atrial fibrillation with rapid ventricular response: (2) Elevated troponin: (3) Jaw pain: (4) Edema of both legs: Plan: 1. Atrial fibrillation: She presented with atrial fibrillation with rapid ventricular response which sounds as though it is due to medication noncompliance. I did switch her back to her typical outpatient medications and discontinued the intravenous diltiazem. Although her heart rate is still a little elevated I think it is acceptable and with her blood pressure being a little bit low I do not know that we should change her medications. We could consider going up on the metoprolol which is at a very low dose but I am worried that her blood pressure will suffer. 2. Elevated troponin: She did have an elevated troponin on presentation however the level has dropped and it does not seem compatible with an acute ischemic event. I think it is demand ischemia, possibly in the setting of underlying coronary artery disease. Even though she may have underlying coronary artery disease however without symptoms I would not pursue further evaluation. 3. Jaw pain: It is conceivable that her jaw pain is an anginal equivalent. That is little bit worrisome, and if so that would suggest a need to evaluate her coronary arteries. Still with a dropping troponin and a reason for her to have an elevated troponin I am reluctant to take her to the [facility], especially with her other underlying hematologic issues. 4. Edema: She does have significant edema and I agree with diuresis. This may help her feel better as well. Admission and Anticipated Discharge Date Admission Date: November 15, 2021 Subjective She is not feeling too well today, she continues to have chest discomfort today and she is also having jaw discomfort when she is eating. It sounds as though her jaw discomfort is only with moving her jaw though, not all of the time. Physical Exam Physical Exam: Constitutional: Alert, cooperative and in no distress. HEENT: Unremarkable Neck: No jugular venous distention, carotid pulses are irregular but otherwise normal and equal bilaterally without bruits. Pulmonary: Clear to auscultation bilaterally. Cardiac: Irregular rhythm with no murmur, gallop or rub. Abdomen: Soft, nontender with normal bowel sounds. Extremities: No edema. Distal pulses intact. Neurologic: No focal findings. Gait is steady. Skin: No rash, ecchymoses or petechiae. Results & Data ([facility]) Vital Signs (Past 12 Hours) Vital Signs Temp Pulse Resp BP Pulse Ox Pulse Ox 11/17/21 11:45 36.7 C 103 H 20 95/62 L 97 11/17/21 08:00 98 11/17/21 07:43 36.6 C 112 H 18 112/72 96 11/17/21 03:47 36.9 C 87 16 115/64 93 Laboratory Results CBC 11/17/21 Range/Units 05:16 WBC 1.95 L (4.8-10.8) K/uL RBC 2.47 L (4.2-5.4) M/uL Hgb 7.2 L (12.0-16.0) g/dL Hct 21.3 L (37-47) % Plt Count 2 L* (130-400) K/uL Comprehensive Metabolic Panel 11/17/21 Range/Units 05:16 Sodium 131 L (136-145) mmol/L Potassium 3.6 (3.5-5.1) mmol/L Chloride 100 (98-107) mmol/L Carbon Dioxide 23 (21-32) mmol/L BUN 51 H (6-23) mg/dl Creatinine 1.73 H (0.6-1.2) mg/dl Glucose 141 H (70-99(Fasting)) mg/dl Calcium 8.2 L (8.5-10.1) mg/dl Intake and Output 11/16/21 11/17/21 11/17/21 22:59 06:59 14:59 Intake Total 240 / 1880.000 440 / 1880.000 Output Total 450 / 750 Balance -210 / 1130.000 440 / 1130.000 Intake: Oral 240 / 1755 440 / 1755 Output: Urine 450 / 750 Other: Weight 93.7 kg Diagnostic Findings Telemetry: Atrial fibrillation with rate varying from 80 to 110 bpm PG Care Time/CCT Total # of Minutes Spent Total Time Spent with Patient: Total time spent is greater than 50% in coordination of care (as documented) at patient's floor/unit and/or counseling patient: Coding Level of Care Code 84711 Subseq Hosp Care Lvl 2 Diagnoses Atrial fibrillation with rapid ventricular response I48.91 Elevated troponin R77.8 Jaw pain R68.84 Edema of both legs R60.0
--- NOTE | 2021-11-17 12:24 | XRay Report ---
SINGLE VIEW CHEST CLINICAL HISTORY: Follow-up congestive failure. FINDINGS: An AP, portable, upright chest radiograph is compared to study dated 11/15/2021 and correlate d with chest CT dated 08/05/2021. The heart is enlarged noting atherosclerotic calcification of the th oracic aorta. Pulmonary vascular congestion and interstitial edema similar to previous. There are rig ht larger than left pleural effusions with dependent consolidation. No pneumothorax is seen. The skel etal structures are osteopenic. The bony thorax is grossly intact. IMPRESSION: 1. Cardiomegaly with congestive failure and interstitial edema. This is similar to previous. 2. Right larger than left pleural effusions with dependent consolidation. ACT 112: Negative or not required by law. Electronically signed by: Ritesh Hirsch M.D. 11/17/2021 12:23 PM
[2021-11-17] MEDS ORDERED: SODIUM CHLORIDE 0.9% 250 ML IV PRN (12:34)
--- NOTE | 2021-11-17 19:09 | Hospitalist Progress Note ---
Date of Service November 17, 2021 Assessment & Plan (1) Atrial fibrillation with rapid ventricular response: Plan: Patient is 81 y/o F with PMH MDS, pancytopenia, insulin-dependent DM II, HTN, atrial fibrillation not on anticoagulation, spinal stenosis, chronic low back p ain, inflammatory arthritis, chronic prednisone use, h/o left breast cancer s/p lumpectomy, h/o uterine cancer s/p hysterectomy presented to ER from [facility] for elevated heart rate. Possible related to medication noncompliance EKG on admission showed afib RVR rates in 130's She was started on cardizem drip Most recent echo 11/11/2021: EF: 60-65%, mild concentric LVH, aortic valve sclerosis without stenosis, mild AR, mild to moderate MR, moderate TR Rate control cardiology on board IV Cardizem drip was discontinued then transition to PO Cardizem Continue Metoprolol 25mg daily and cardizem PO Continue monitor Elevated troponin Mostly demand ischemia due to Afib RVR High sensitivity troponin: 157, then peaked to 176 and now trending down 134 Denies any chest pain currently Continue statin, metoprolol Not a candidate for antiplatelet due to low platelet Continue monitor closely Jaw pain Might be TMJ since she continues to have Jaw pain when chewing or opening her mouth Will continue tylenol and tramadol prn She already on steroid 5mg, will increase to 10mg for the jaw pain Will change diet to soft (2) MDS (myelodysplastic syndrome): (3) Pancytopenia: Plan: Hgb 7.2 and platelet [address] Head: no acute intracranial abnormality No sign of active bleeding S/P 1 unit PRBC and 1 unit platelet on 11/15/[address] Barrientos and agreed to transfused 1 unit PRBC and 1 unit platelet Order placed for type and cross Continue monitor CBC (4) Acute on chronic diastolic (congestive) heart failure: Plan: CXR: Cardiomegaly with pulmonary edema. Moderate size right pleural effusion with right basilar consolidation, progressed from the prior study. Last Echo on 11/11/2021: EF: 60-65%, mild concentric LVH, aortic valve sclerosis without stenosis, mild AR, mild to moderate MR, moderate TR Monitor I's & O's and daily weight Repeat CXR showed cardiomegaly with congestive failure and interstitial edema. Right larger than left pleural effusions with dependent consolidation. Will monitor closely for sign of fluid overload since pt is getting 1 unit prbc and 1 unit platelet today Continue Lasix 40mg IV BID (5) Hypomagnesemia: Plan: Magnesium: 1.3 on admission, Magnesium 1.8 today Continue monitor (6) CKD (chronic kidney disease), stage III: Plan: Creatinine 1.7 today, Baseline ~1.3-1.6 Continue monitor BMP (7) Insulin dependent diabetes mellitus: Plan: Most recent A1c: 7.2 on 10/2021 Pharmacy on board for glycemic management Continue NPH and novolog sliding scale Continue monitor BS (8) Rheumatoid arthritis: (9) Chronic steroid use: Plan: Continue prednisone (10) Lumbar spinal stenosis: Plan: Chronic Back pain Continue tramadol prn (11) Gout: Plan: Continue allopurinol DVT Prophylaxis SCDs Full Code Admission and Anticipated Discharge Date Admission Date: November 15, 2021 Subjective Pt was seen and examined for follow up of Afib with RVR, weakness and jaw pain Sitting in chair with no acute distress watching TV She said that she feels weak and tired She said that she continues have jaw pain that is worst when chewing or opening her mouth I spoke to Hem/onc dr. Barrientos about blood transfusion due to her low platelet and hgb. Dr. Barrientos agreed to transfer 1 unit PRBC and 1 unit of platelet Currently feels weak and tired, but denies any chest pain and palpitation Physical Exam Physical Exam: General- No acute distress Head- atraumatic Eyes- PERRL, EOMI, ENT- oropharynx clear Neck- supple, no JVD Lungs- clear to auscultation Heart- irregular rhythm; no murmur Abdomen- normal bowel sounds, soft, nontender Extremities- no calf tenderness Neuro- alert, oriented x 3; PERRL, EOMI; no facial palsy; no dysarthria Skin- warm & dry Results & Data Results & Data ([facility]) Vital Signs (Past 12 Hours) Vital Signs Temp Pulse Pulse Resp BP BP Pulse Ox 11/17/21 15:54 36.6 C 92 H 134/78 96 11/17/21 15:15 36.5 C 86 127/70 95 11/17/21 14:46 36.7 C 98 H 136/72 97 11/17/21 14:16 36.7 C 98 H 112/64 97 11/17/21 14:03 36.6 C 98 H 108/68 97 11/17/21 13:53 36.6 C 97 H 18 102/67 96 11/17/21 13:52 36.6 C 97 H 18 102/67 96 11/17/21 11:45 36.7 C 103 H 20 95/62 L 97 11/17/21 08:00 11/17/21 07:43 36.6 C 112 H 18 112/72 96 Pulse Ox 11/17/21 15:54 11/17/21 15:15 11/17/21 14:46 11/17/21 14:16 11/17/21 14:03 11/17/21 13:53 11/17/21 13:52 11/17/21 11:45 11/17/21 08:00 98 11/17/21 07:43
[2021-11-18] MEDS: ACETAMINOPHEN 325 MG TAB PO PRN ×4 (03:54→19:21)
[2021-11-18] MEDS: PANTOprazole 40 MG TAB PO SCH (07:48)
[2021-11-18] MEDS: allopurinoL 300 MG TAB PO SCH (07:48)
[2021-11-18] MEDS: METOPROLOL SUCC 25MG EXT REL TAB PO SCH (07:48)
[2021-11-18] MEDS: dilTIAZem HCL 240 MG CAPCR PO SCH (07:48)
[2021-11-18] MEDS: LORATADINE 10 MG TAB PO SCH (07:48)
[2021-11-18] MEDS: ESCITALOPRAM OXALATE 10 MG TAB PO SCH (07:48)
[2021-11-18] MEDS: ATORVASTATIN 20 MG TAB PO SCH (07:48)
[2021-11-18] MEDS: predniSONE 5 MG TAB PO SCH (07:49)
[2021-11-18] MEDS: INSULIN HUMAN NPH SC SCH ×2 (07:53→17:19)
[2021-11-18 07:54] LABS: BUN Creatinine Ratio 30.1 (10-20); Calcium 8.6 mg/dl (8.5-10.1); Creatinine Clr Calc Pharmacy 27.8 ml/min; Est GFR (Non-African American) 27.6 ml/min; Magnesium 1.5 mg/dl (1.7-2.4); Potassium 3.9 mmol/L (3.5-5.1)
[2021-11-18] MEDS: INSULIN ASPART PER UNIT SC SCH ×4 (07:57→20:59)
[2021-11-18 08:03] LABS: Hematocrit (blood only) 23.5 % (37-47); Mean Corpuscular Hemoglobin 29.3 pg (25-34); Mean Corpuscular Volume 86.1 fL (80-100); Platelet Count 7 K/uL (130-400); RDW Coefficient of Variation 14.1 % (11.5-14.5); RDW Standard Deviation 44.4 fL (36.4-46.3); Red Blood Count 2.73 M/uL (4.2-5.4); White Blood Count 1.68 K/uL (4.8-10.8)
[2021-11-18 08:08] LABS: Platelet Estimate SIGNIFIC DECREASED (Normal)
[2021-11-18] MEDS ORDERED: FUROSEMIDE 40 MG/4 ML VIAL IV ONE ×2 (08:22→21:09)
[2021-11-18] MEDS: MAGNESIUM SULFATE / D5W 1 GM/100 ML BAG IV SCH ×2 (09:40→11:36)
--- NOTE | 2021-11-18 20:53 | Hospitalist Progress Note ---
Date of Service November 18, 2021 Assessment & Plan (1) Atrial fibrillation with rapid ventricular response: Plan: Patient is 81 y/o F with PMH MDS, pancytopenia, insulin-dependent DM II, HTN, atrial fibrillation not on anticoagulation, spinal stenosis, chronic low back p ain, inflammatory arthritis, chronic prednisone use, h/o left breast cancer s/p lumpectomy, h/o uterine cancer s/p hysterectomy presented to ER from [facility] for elevated heart rate. Possible related to medication noncompliance EKG on admission showed afib RVR rates in 130's She was started on cardizem drip Most recent echo 11/11/2021: EF: 60-65%, mild concentric LVH, aortic valve sclerosis without stenosis, mild AR, mild to moderate MR, moderate TR Rate control cardiology on board IV Cardizem drip was discontinued then transition to PO Cardizem Continue Metoprolol 25mg daily and cardizem PO Continue monitor Elevated troponin Mostly demand ischemia due to Afib RVR High sensitivity troponin: 157, then peaked to 176 and now trending down 134 Denies any chest pain currently Continue statin, metoprolol Not a candidate for antiplatelet due to low platelet Continue monitor closely Jaw pain Might be TMJ since she continues to have Jaw pain when chewing or opening her mouth Will continue tylenol and tramadol prn She already on steroid 5mg, will increase to 10mg for the jaw pain Continue soft diet Continue prednisone 10mg daily (2) MDS (myelodysplastic syndrome): (3) Pancytopenia: Plan: Hgb 7.2 and platelet [address] Head: no acute intracranial abnormality No sign of active bleeding S/P 2 unit PRBC and 2 unit platelet so far during the hospital course Case discussed with Hem/onc dr. Barrientos today that recommended additional platelet transfusion to keep platelet level 10 or above Need to monitor for sign of fluid overload due to blood product transfusion Continue monitor CBC (4) Acute on chronic diastolic (congestive) heart failure: Plan: CXR: Cardiomegaly with pulmonary edema. Moderate size right pleural effusion with right basilar consolidation, progressed from the prior study. Last Echo on 11/11/2021: EF: 60-65%, mild concentric LVH, aortic valve sclerosis without stenosis, mild AR, mild to moderate MR, moderate TR Monitor I's & O's and daily weight Repeat CXR showed cardiomegaly with congestive failure and interstitial edema. Right larger than left pleural effusions with dependent consolidation. Will monitor closely for sign of fluid overload due to recurrent transfusion Continue Lasix 40mg IV Pt is about 4L positive. Continue monitor I/O (5) Hypomagnesemia: Plan: Magnesium: 1.3 on admission, Magnesium 1.8 today Continue monitor (6) CKD (chronic kidney disease), stage III: Plan: Creatinine 1.7 today, Baseline ~1.3-1.6 Continue monitor BMP (7) Insulin dependent diabetes mellitus: Plan: Most recent A1c: 7.2 on 10/2021 Pharmacy on board for glycemic management Continue NPH and novolog sliding scale Continue monitor BS (8) Rheumatoid arthritis: (9) Chronic steroid use: Plan: Continue prednisone (10) Lumbar spinal stenosis: Plan: Chronic Back pain Continue tramadol prn (11) Gout: Plan: Continue allopurinol DVT Prophylaxis SCDs Full Code Admission and Anticipated Discharge Date Admission Date: November 15, 2021 Subjective Pt was seen and examined for follow up of Afib with RVR, weakness and jaw pain Sitting in chair with no acute distress She said that she continues have jaw pain that is worst when chewing or opening her mouth I spoke to Hem/onc dr. Barrientos today that recommended additional platelet with goal platelet 10 Currently feels weak and tired, but denies any chest pain and palpitation Review of Systems Review of Systems: All systems reviewed & are unremarkable except as noted in Subjective Physical Exam Physical Exam: General- No acute distress Head- atraumatic Eyes- PERRL, EOMI, ENT- oropharynx clear Neck- supple, no JVD Lungs- clear to auscultation Heart- irregular rhythm; no murmur Abdomen- normal bowel sounds, soft, nontender Extremities- no calf tenderness Neuro- alert, oriented x 3; PERRL, EOMI; no facial palsy; no dysarthria Skin- warm & dry Results & Data Results & Data ([facility]) Vital Signs (Past 12 Hours) Vital Signs Temp Pulse Pulse Resp BP Pulse Ox 11/18/21 19:19 36.5 C 86 18 126/70 92 11/18/21 15:43 36.6 C 91 H 18 129/75 99 11/18/21 11:11 36.6 C 103 H 18 126/67 92 11/18/21 09:56 89
[2021-11-18] MEDS ORDERED: predniSONE 10 MG TABLET PO ONE (21:00)
[2021-11-18] MEDS: DOCUSATE SODIUM 100 MG CAP PO SCH (21:15)
[2021-11-18] MEDS: MAGNESIUM OXIDE 400 MG TAB PO SCH (22:19)
[2021-11-18 22:38] LABS: Appearance Urine Clear (Clear); Bacteria Urine Automated Negative (Negative); Bilirubin Urine Negative (Negative); Blood Urine Trace (Negative); Color Urine Yellow; Epithelial Cell Urine Auto 20-30 /lpf (0-5); Glucose Urine UA Negative (Negative); Ketones Urine Negative (Negative); Leukocyte Esterase Urine Negative (Negative); Nitrite Urine Negative (Negative); Protein Urine Negative (Negative); RBC Urine Automated 0-4 /hpf (0-4); Specific Gravity Urine 1.015 (1.000-1.030); Urobilinogen Urine Negative (Negative)
[2021-11-19] MEDS: ACETAMINOPHEN 325 MG TAB PO PRN ×3 (02:14→20:18)
[2021-11-19 06:30] LABS: Hematocrit (blood only) 23.3 % (37-47); Hemoglobin 7.9 g/dL (12.0-16.0); Mean Corpuscular Hemoglobin 28.9 pg (25-34); Mean Corpuscular Hgb Conc 33.9 g/dL (32-36); Mean Corpuscular Volume 85.3 fL (80-100); Platelet Count 7 K/uL (130-400); RDW Coefficient of Variation 14.2 % (11.5-14.5); RDW Standard Deviation 43.7 fL (36.4-46.3); Red Blood Count 2.73 M/uL (4.2-5.4); White Blood Count 2.11 K/uL (4.8-10.8)
[2021-11-19 06:34] LABS: BUN Creatinine Ratio 29.8 (10-20); Calcium 8.4 mg/dl (8.5-10.1); Creatinine Clr Calc Pharmacy 28.5 ml/min; Est GFR (African American) 32.4 ml/min; Magnesium 2.2 mg/dl (1.7-2.4)
[2021-11-19 06:36] LABS: Platelet Estimate SIGNIFIC DECREASED (Normal)
[2021-11-19] MEDS: INSULIN HUMAN NPH SC SCH (07:51)
[2021-11-19] MEDS: INSULIN ASPART PER UNIT SC SCH ×5 (08:03→21:00)
[2021-11-19] MEDS: MAGNESIUM OXIDE 400 MG TAB PO SCH ×2 (08:04→20:17)
[2021-11-19] MEDS: ATORVASTATIN 20 MG TAB PO SCH (08:04)
[2021-11-19] MEDS: allopurinoL 300 MG TAB PO SCH (08:04)
[2021-11-19] MEDS: METOPROLOL SUCC 25MG EXT REL TAB PO SCH (08:04)
[2021-11-19] MEDS: dilTIAZem HCL 240 MG CAPCR PO SCH (08:04)
[2021-11-19] MEDS: predniSONE 5 MG TAB PO SCH (08:04)
[2021-11-19] MEDS: LORATADINE 10 MG TAB PO SCH (08:05)
[2021-11-19] MEDS: PANTOprazole 40 MG TAB PO SCH (08:05)
[2021-11-19] MEDS: ESCITALOPRAM OXALATE 10 MG TAB PO SCH (08:05)
[2021-11-19] MEDS: FUROSEMIDE 40 MG/4 ML VIAL IV SCH ×2 (08:33→16:50)
--- NOTE | 2021-11-19 11:30 | Hospitalist Progress Note ---
Date of Service November 19, 2021 Assessment & Plan (1) Atrial fibrillation with rapid ventricular response: Plan: Patient is 81 y/o F with PMH MDS, pancytopenia, insulin-dependent DM II, HTN, atrial fibrillation not on anticoagulation, spinal stenosis, chronic low back p ain, inflammatory arthritis, chronic prednisone use, h/o left breast cancer s/p lumpectomy, h/o uterine cancer s/p hysterectomy presented to ER from [facility] for elevated heart rate. Possible related to medication noncompliance EKG on admission showed afib RVR rates in 130's She was started on cardizem drip Most recent echo 11/11/2021: EF: 60-65%, mild concentric LVH, aortic valve sclerosis without stenosis, mild AR, mild to moderate MR, moderate TR Rate control cardiology on board IV Cardizem drip was discontinued then transition to PO Cardizem Continue Metoprolol 25mg daily and cardizem PO Continue monitor Elevated troponin Mostly demand ischemia due to Afib RVR High sensitivity troponin: 157, then peaked to 176 and now trending down 134 Denies any chest pain currently Continue statin, metoprolol Not a candidate for antiplatelet due to low platelet Continue monitor closely Jaw pain Might be TMJ since she continues to have Jaw pain when chewing or opening her mouth Continue tylenol and tramadol prn and steroid Continue soft diet Clinically improved (2) MDS (myelodysplastic syndrome): (3) Pancytopenia: Plan: Hgb 7.9 and platelet [address] Head: no acute intracranial abnormality No sign of active bleeding S/P 2 unit PRBC and 2 unit platelet so far during the hospital course Case discussed with Hem/onc dr. Barrientos that recommended additional platelet transfusion to keep platelet level 10 or above Transfused 1 unit PRBC today Need to monitor for sign of fluid overload due to blood product transfusion Continue monitor CBC (4) Acute on chronic diastolic (congestive) heart failure: Plan: CXR: Cardiomegaly with pulmonary edema. Moderate size right pleural effusion with right basilar consolidation, progressed from the prior study. Last Echo on 11/11/2021: EF: 60-65%, mild concentric LVH, aortic valve sclerosis without stenosis, mild AR, mild to moderate MR, moderate TR Monitor I's & O's and daily weight Repeat CXR showed cardiomegaly with congestive failure and interstitial edema. Right larger than left pleural effusions with dependent consolidation. Will monitor closely for sign of fluid overload due to recurrent transfusion Continue Lasix 40mg IV Pt is about 3L positive. Continue monitor I/O (5) Hypomagnesemia: Plan: Magnesium: 1.3 on admission, Magnesium 1.8 today Continue monitor (6) CKD (chronic kidney disease), stage III: Plan: Creatinine 1.7 today, Baseline ~1.3-1.6 Continue monitor BMP (7) Insulin dependent diabetes mellitus: Plan: Most recent A1c: 7.2 on 10/2021 Pharmacy on board for glycemic management Continue NPH and novolog sliding scale Continue monitor BS (8) Rheumatoid arthritis: (9) Chronic steroid use: Plan: Continue prednisone (10) Lumbar spinal stenosis: Plan: Chronic Back pain Continue tramadol prn (11) Gout: Plan: Continue allopurinol DVT Prophylaxis SCDs Full Code Admission and Anticipated Discharge Date Admission Date: November 15, 2021 Subjective Pt was seen and examined for follow up of Afib with RVR, weakness and jaw pain Sitting in chair with no acute distress She said that the jaw pain improved She started to feel better, but continue to have lower extremity edema Review of Systems Review of Systems: All systems reviewed & are unremarkable except as noted in Subjective Physical Exam Physical Exam: General- No acute distress Head- atraumatic Eyes- PERRL, EOMI, ENT- oropharynx clear Neck- supple, no JVD Lungs- clear to auscultation Heart- irregular rhythm; no murmur Abdomen- normal bowel sounds, soft, nontender Extremities- no calf tenderness, +edema Neuro- alert, oriented x 3; PERRL, EOMI; no facial palsy; no dysarthria Skin- warm & dry Results & Data Results & Data ([facility]) Vital Signs (Past 12 Hours) Vital Signs Temp Pulse Pulse Resp BP BP Pulse Ox 11/19/21 09:55 36.4 C L 111 H 20 125/72 98 11/19/21 09:25 36.5 C 126 H 20 139/91 94 11/19/21 09:04 36.4 C L 115 H 20 134/76 96 11/19/21 08:54 36.8 C 133 H 18 121/68 95 11/19/21 07:38 36.6 C 106 H 20 122/86 96 11/19/21 07:30 108 H 11/19/21 02:52 36.6 C 79 16 129/73 93 11/18/21 23:38 36.5 C 79 20 111/51 L 93
[2021-11-19] MEDS ORDERED: predniSONE 5 MG TAB PO ONE (11:31)
[2021-11-19] MEDS ORDERED: INSULIN HUMAN NPH SC SCH (18:00)
[2021-11-19] MEDS: DOCUSATE SODIUM 100 MG CAP PO SCH (20:19)
[2021-11-20] MEDS ORDERED: INSULIN ASPART PER UNIT SC SCH
[2021-11-20] MEDS: ACETAMINOPHEN 325 MG TAB PO PRN ×3 (05:07→16:56)
[2021-11-20 06:58] LABS: Hematocrit (blood only) 21.9 % (37-47); Hemoglobin 7.4 g/dL (12.0-16.0); Mean Corpuscular Hemoglobin 28.9 pg (25-34); Mean Corpuscular Volume 85.5 fL (80-100); Platelet Count 7 K/uL (130-400); RDW Coefficient of Variation 14.1 % (11.5-14.5); Red Blood Count 2.56 M/uL (4.2-5.4); White Blood Count 1.63 K/uL (4.8-10.8)
[2021-11-20 07:08] LABS: BUN Creatinine Ratio 31.8 (10-20); Calcium 8.4 mg/dl (8.5-10.1); Creatinine Clr Calc Pharmacy 30.8 ml/min; Potassium 3.6 mmol/L (3.5-5.1)
[2021-11-20 07:20] LABS: Mean Corpuscular Hgb Conc 33.8 g/dL (32-36)
[2021-11-20 07:21] LABS: Platelet Estimate SIGNIFIC DECREASED (Normal)
[2021-11-20] MEDS: METOPROLOL SUCC 25MG EXT REL TAB PO SCH (08:14)
[2021-11-20] MEDS: LORATADINE 10 MG TAB PO SCH (08:14)
[2021-11-20] MEDS: MAGNESIUM OXIDE 400 MG TAB PO SCH ×2 (08:14→20:54)
[2021-11-20] MEDS: ATORVASTATIN 20 MG TAB PO SCH (08:14)
[2021-11-20] MEDS: PANTOprazole 40 MG TAB PO SCH (08:14)
[2021-11-20] MEDS: ESCITALOPRAM OXALATE 10 MG TAB PO SCH (08:14)
[2021-11-20] MEDS: predniSONE 5 MG TAB PO SCH (08:14)
[2021-11-20] MEDS: dilTIAZem HCL 240 MG CAPCR PO SCH (08:15)
[2021-11-20] MEDS: FUROSEMIDE 40 MG/4 ML VIAL IV SCH ×2 (08:15→17:02)
[2021-11-20] MEDS: allopurinoL 300 MG TAB PO SCH (08:15)
[2021-11-20] MEDS: INSULIN ASPART PER UNIT SC SCH ×4 (08:48→20:41)
[2021-11-20] MEDS: INSULIN HUMAN NPH SC SCH ×2 (08:49→17:28)
--- NOTE | 2021-11-20 09:01 | Pharmacy Report ---
Pharmacy Glycemic Short Note 2 - Date of Service November 20, 2021 - Glycemic Short BSG Results (Last 24 hours): 11/19/21 11/19/21 11/19/21 11:44 16:25 20:29 Glucose POC Glucose 273 H 155 H 162 H 11/20/21 11/20/21 11/20/21 00:00 06:22 06:55 Glucose 101 H POC Glucose 259 H 116 H OUTPATIENT ANTIDIABETIC REGIMEN: * Novolog Mix 70/30 35 units SQ QAM; 28 units SQ with dinner ASSESSMENT: 11/20 * Patient received total of 97 units of insulin yesterday, of which 50 units were NPH * BSGs elevated yesterday due to increase in steroids, NPH dose had been increased b/c of that - BSGs now trending down this morning * Fasting BSG 116 mg/dL - continues on usual prednisone dose today of 5 mg daily, will keep higher NPH dose for this AM, but will go back to prior dose of 20 units for dinner time since no extra doses of steroids given today 11/16 * 81 y/o F admitted for A Fib. Patient with history of Type 2 diabetes managed at home on Novolog mix insulin BID. * Patient was admitted here last month. At that time she was ordered NPH insulin for basal coverage and Novolog bolus. Continued the same. * She received 20 units of NPH last night. Fasting BSG this AM was 87 mg/dl. * NPH 20 units ordered this AM (slightly reduced from 30 units that she was on during recent admission). Continued with 20 units at dinner. * Novolog parameters based on stress of 2. PLAN FOR INPATIENT GLYCEMIC CONTROL: * Basal insulin * NPH 25 units Qam * NPH 20 units daily with dinner * Bolus insulin * NovoLog per scale ACHS or Q6hrs while NPO * Goal Range: Low 120 mg/dL - High 160 mg/dL * Correction Factor: 25 mg/dL/unit (CF 15 with breakfast) * Nutritional / Prandial insulin per carb ratio of 1 unit per 7 grams CHO consumed (CR 5 with breakfast)
--- NOTE | 2021-11-20 13:34 | Hospitalist Progress Note ---
Date of Service November 20, 2021 Assessment & Plan (1) Atrial fibrillation with rapid ventricular response: Plan: Patient is 81 y/o F with PMH MDS, pancytopenia, insulin-dependent DM II, HTN, atrial fibrillation not on anticoagulation, spinal stenosis, chronic low back p ain, inflammatory arthritis, chronic prednisone use, h/o left breast cancer s/p lumpectomy, h/o uterine cancer s/p hysterectomy presented to ER from [facility] for elevated heart rate. Possible related to medication noncompliance EKG on admission showed afib RVR rates in 130's She was started on cardizem drip Most recent echo 11/11/2021: EF: 60-65%, mild concentric LVH, aortic valve sclerosis without stenosis, mild AR, mild to moderate MR, moderate TR Rate control cardiology on board IV Cardizem drip was discontinued then transition to PO Cardizem Continue Metoprolol 25mg daily and cardizem PO Continue monitor Elevated troponin Mostly demand ischemia due to Afib RVR High sensitivity troponin: 157, then peaked to 176 and now trending down 134 Denies any chest pain currently Continue statin, metoprolol Not a candidate for antiplatelet due to low platelet Continue monitor closely Jaw pain Might be TMJ since she continues to have Jaw pain when chewing or opening her mouth Continue tylenol and tramadol prn and steroid Continue soft diet Clinically improved (2) MDS (myelodysplastic syndrome): (3) Pancytopenia: Plan: Hgb 7.9 and platelet 7.[address] Head: no acute intracranial abnormality No sign of active bleeding S/P 2 unit PRBC and 3 unit platelet so far during the hospital course Case discussed with Hem/onc dr. Barrientos that recommended additional platelet transfusion to keep platelet level 10 or above Transfused 1 unit PRBC today Need to monitor for sign of fluid overload due to blood product transfusion Continue monitor CBC (4) Acute on chronic diastolic (congestive) heart failure: Plan: CXR: Cardiomegaly with pulmonary edema. Moderate size right pleural effusion with right basilar consolidation, progressed from the prior study. Last Echo on 11/11/2021: EF: 60-65%, mild concentric LVH, aortic valve sclerosis without stenosis, mild AR, mild to moderate MR, moderate TR Monitor I's & O's and daily weight Repeat CXR showed cardiomegaly with congestive failure and interstitial edema. Right larger than left pleural effusions with dependent consolidation. Will monitor closely for sign of fluid overload due to recurrent transfusion Continue Lasix 40mg IV Pt is about 3L positive. Continue monitor I/O (5) Hypomagnesemia: Plan: Magnesium: 1.3 on admission, Magnesium 1.8 today Continue monitor (6) CKD (chronic kidney disease), stage III: Plan: Creatinine 1.5 today, Baseline ~1.3-1.6 Continue monitor BMP (7) Insulin dependent diabetes mellitus: Plan: Most recent A1c: 7.2 on 10/2021 Pharmacy on board for glycemic management Continue NPH and novolog sliding scale Continue monitor BS (8) Rheumatoid arthritis: (9) Chronic steroid use: Plan: Continue prednisone (10) Lumbar spinal stenosis: Plan: Chronic Back pain Continue tramadol prn (11) Gout: Plan: Continue allopurinol DVT Prophylaxis SCDs Full Code Admission and Anticipated Discharge Date Admission Date: November 15, 2021 Subjective Pt was seen and examined for follow up of Afib with RVR, weakness and jaw pain Sitting in chair with no acute distress She said that she continues to have jaw pain Lower extremity edema improves Review of Systems Review of Systems: All systems reviewed & are unremarkable except as noted in Subjective Physical Exam Physical Exam: General- No acute distress Head- atraumatic Eyes- PERRL, EOMI, ENT- oropharynx clear Neck- supple, no JVD Lungs- clear to auscultation Heart- irregular rhythm; no murmur Abdomen- normal bowel sounds, soft, nontender Extremities- no calf tenderness, +edema Neuro- alert, oriented x 3; PERRL, EOMI; no facial palsy; no dysarthria Skin- warm & dry Results & Data Results & Data ([facility]) Vital Signs (Past 12 Hours) Vital Signs Temp Pulse Pulse Resp BP BP Pulse Ox 11/20/21 10:19 99 H 14 130/64 99 11/20/21 10:15 36.6 C 104 H 16 131/77 99 11/20/21 09:56 36.6 C 115 H 18 129/76 99 11/20/21 07:32 80 11/20/21 07:18 36.5 C 89 17 123/68 96 11/20/21 03:14 36.5 C 85 18 110/64 99
[2021-11-20] MEDS: oxyCODONE HCL IR 5 MG TAB (IMMEDIATE RELEASE) PO PRN (20:54)
[2021-11-20] MEDS: DOCUSATE SODIUM 100 MG CAP PO SCH (21:12)
[2021-11-21] MEDS ORDERED: MoRPHine SULFATE 4 MG/ML 1 ML CARP\\VIAL IV STA (04:30)
[2021-11-21 07:25] LABS: Hematocrit (blood only) 22.1 % (37-47); Hemoglobin 7.3 g/dL (12.0-16.0); Mean Corpuscular Hemoglobin 29.1 pg (25-34); Platelet Count 8 K/uL (130-400); RDW Coefficient of Variation 14.1 % (11.5-14.5); RDW Standard Deviation 45.9 fL (36.4-46.3); Red Blood Count 2.51 M/uL (4.2-5.4); White Blood Count 1.67 K/uL (4.8-10.8)
[2021-11-21 07:27] LABS: BUN Creatinine Ratio 30.2 (10-20); Calcium 8.3 mg/dl (8.5-10.1); Creatinine Clr Calc Pharmacy 34.7 ml/min; Est GFR (African American) 41.7 ml/min; Potassium 3.7 mmol/L (3.5-5.1)
[2021-11-21] MEDS: METOPROLOL SUCC 25MG EXT REL TAB PO SCH (08:00)
[2021-11-21] MEDS: MAGNESIUM OXIDE 400 MG TAB PO SCH ×2 (08:00→20:41)
[2021-11-21] MEDS: allopurinoL 300 MG TAB PO SCH (08:00)
[2021-11-21] MEDS: ESCITALOPRAM OXALATE 10 MG TAB PO SCH (08:00)
[2021-11-21] MEDS: INSULIN HUMAN NPH SC SCH ×2 (08:00→17:17)
[2021-11-21] MEDS: PANTOprazole 40 MG TAB PO SCH (08:00)
[2021-11-21] MEDS: dilTIAZem HCL 240 MG CAPCR PO SCH (08:00)
[2021-11-21] MEDS: LORATADINE 10 MG TAB PO SCH (08:00)
[2021-11-21] MEDS: ATORVASTATIN 20 MG TAB PO SCH (08:00)
[2021-11-21] MEDS: INSULIN ASPART PER UNIT SC SCH ×4 (08:00→20:40)
[2021-11-21] MEDS: predniSONE 5 MG TAB PO SCH (08:01)
[2021-11-21] MEDS: oxyCODONE HCL IR 5 MG TAB (IMMEDIATE RELEASE) PO PRN ×2 (08:01→17:23)
[2021-11-21] MEDS: FUROSEMIDE 40 MG/4 ML VIAL IV SCH ×2 (08:06→17:10)
[2021-11-21] MEDS ORDERED: SODIUM CHLORIDE 0.9% 250 ML IV PRN (08:57)
[2021-11-21] MEDS ORDERED: ACETAMINOPHEN 325 MG TAB PO ONE (08:57)
[2021-11-21] MEDS ORDERED: diphenhydrAMINE Capsule 25 MG CAP PO ONE (08:57)
--- NOTE | 2021-11-21 09:40 | Hospitalist Progress Note ---
Date of Service November 21, 2021 Assessment & Plan (1) Pain in lower jaw: Plan: Acute, persistent left mandibular pain with TTP in TMJ and difficulty opening mouth and chewing at this point. Cannot give NSAIDs because of low platelets, narcotics are not working well to control pain. She has known dental caries and reports a h/o dental infection with extraction within the last [address] on 11/15 revealed multiple caries but no kamila abscess. Request OMFS darius luation with ongoing severe pain and difficulty tolerating PO. (2) Acute on chronic diastolic (congestive) heart failure: Plan: CXR: Cardiomegaly with pulmonary edema. Moderate size right pleural effusion with right basilar consolidation, progressed from the prior study. Last Echo on 11/11/2021: EF: 60-65%, mild concentric LVH, aortic valve sclerosis without stenosis, mild AR, mild to moderate MR, moderate TR She feels improved but still has pitting edema in her lower extremities and dyspnea with exertion. She examines as hypervolemic. Net negative output overnight. Home Bumex 2mg PO BID, so we may be underdosing her a bit. Will increase her dose of lasix to 60mg IV BID and ask cardiology to weigh in. Cont daily standing weights, strict i/Os, salt restricted diet. (3) Atrial fibrillation with rapid ventricular response: Plan: Afib with RVR on admission with tachycardia noted in MTU, suspected noncompliance with home medications as a cause. Preserved EF. She was initially placed on a cardizem drip which was transitioned to PO cardizem 240mg daily and is continued on metoprolol succinate 25mg PO daily. Today her heart rate is elevated and cardiology will be by to reassess and adjust medications as needed. 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 No active bleeding. Patient feels poorly with SOB on exertion that may be related to fluid overload, anemia or her jaw issues. Hb 7.3 and checked with her [facility] consultant who would like her to have 1 unit pRBCs-this was ordered with premedication. PLT 8 so will also order 1 pack platelets at this time and repeat labs later today. (5) MDS (myelodysplastic syndrome): Plan: chronic, see plan below. Cont per outpatient team[facility] consultant. Dr. Barrientos (6) Demand ischemia: Plan: elevated trop thought 2/2 demand ischemia per cardiology. no further workup at this time. (7) Hypomagnesemia: Plan: repleted (8) CKD (chronic kidney disease), stage III: Plan: chronic, at baseline. Cont to monitor with daily labs while on IV diuretic therapy. (9) Insulin dependent diabetes mellitus: Plan: Most recent A1c: 7.2 on 10/2021 Pharmacy on board for glycemic management-at goal. Continue NPH and novolog sliding scale Continue monitor BS (10) Rheumatoid arthritis: Plan: chronic, stable. Chronic prednisone use. will review outpatient Rheum notes. (11) Chronic steroid use: Plan: Continue prednisone (12) Lumbar spinal stenosis: Plan: Chronic Back pain, no report today of new issues. Continue tramadol prn (13) Gout: Plan: chronic, stable. Continue allopurinol per home regimen. (14) DVT prophylaxis: Plan: SCDs, ambulate as tolerated chemoprophylaxis contraindicated in setting of thrombocytopenia. Full Code Dispo-cont PCU with elevated heart rates. ?rehab vs home, patient lives alone and not ready to go yet. Quyen Alex [facility] and Anticipated Discharge Date Admission Date: November 15, 2021 Subjective 81 yo F admitted with afib w RVR with persistent tachycardia. Also with known transfusion dependent MDS no bleeding reports feeling awful, holding her left jaw difficulty chewing and opening mouth no fevers or chills denies chest pain or palpitations denies n/v/diarrhea denies SOB but does have some with exertion to and from the bathroom-this is present at baseline. She reports imporved but persistent edema in both her lower extremities. Review of Systems Review of Systems: All systems were reviewed and negative except as indicated above. Physical Exam Physical Exam: CONSTITUTIONAL: WNWD, vitals as above, ill-appearing, mild distress from jaw pain EYES: normal conjunctivae, no scleral icterus, MMM ENT: external ear and nose normal, oropharynx clear, but cannot open her mouth very wide 2/2 pain in left mandible which is also painful to palpation, no maxillary or ethmoid sinus tenderness, poor dentition with missing teeth noted. NECK: trachea midline, no lymphadenopathy RESPIRATORY: clear to auscultation bilaterally, no crackles, rales or wheezes, normal respiratory effort CARDIOVASCULAR: regular rate and rhythm, S1 and 2 heard without murmurs, gallops or rubs, no JVD, 2+ pitting edema to ang[place] bilaterally including feet CHEST: inspection of chest was normal GASTROINTESTINAL: soft, nontender, ND, no guarding MUSCULOSKELETAL: generalized weakness, head is normocephalic and atraumatic, SKIN: warm and dry, NEUROLOGIC: CN 2-12 grossly intact, no sensory deficit, normal cognition, normal speech, no tremor PSYCHIATRIC: alert cooperative and oriented to person, place and time. Results & Data Results & Data ([facility]) Vital Signs (Past 12 Hours) Vital Signs Temp Pulse Pulse Resp BP Pulse Ox 11/21/21 07:39 36.9 C 121 H 19 147/83 H 97 11/21/21 03:22 36.5 C 86 20 112/72 92 11/21/21 00:04 88 11/20/21 23:08 36.9 C 108 H 18 124/69 96 Laboratory Results Short CBC 11/21/21 Range/Units 06:14 WBC 1.67 L (4.8-10.8) K/uL Hgb 7.3 L (12.0-16.0) g/dL Hct 22.1 L (37-47) % Plt Count 8 L* (130-400) K/uL BMP 11/21/21 06:14 Sodium 135 L Potassium 3.7 Chloride 101 Carbon Dioxide 29 BUN 42 H Creatinine 1.39 H Glucose 129 H Calcium 8.[address] SCAN OF THE FACIAL BONES WITH IV CONTRAST CLINICAL HISTORY: Headaches. Left jaw pain. COMPARISON STUDY: No priors. TECHNIQUE: High-resolution CT scan of the facial bones is performed following the IV administration of 95 cc of Optiray 320. Images are reviewed in the axial, sagittal, and coronal planes. IV contrast was administered without complication. A dose lowering technique was utilized adhering to the principles of ALARA. CT DOSE: 1289.64 mGy.cm FINDINGS: The skeletal structures are osteopenic. There is no evidence of facial bone fracture. The bony orbits are intact and the orbital contents are within normal limits noting bilateral ocular lens implants. The zygomatic arches, nasal bones, and pterygoid plates are preserved. The maxilla and mandible are intact. There are no layering blood products within the paranasal sinuses. The paranasal sinuses are clear. There is a small right mastoid effusion. The left mastoid air cells are well pneumatized. The visualized calvarium and upper cervical spine are maintained. Partially imaged brain parenchyma is within normal limits. There are numerous dental caries. A periapical lucency with overlying cortical breakthrough is seen involving the right maxillary canine. No additional periapical lucency is identified. There is no evidence of periodontal abscess or overlying cellulitis. No soft tissue inflammation is seen. Imaged portions of the carotid arteries and jugular veins are patent. IMPRESSION: 1. There is no evidence of facial bone fracture. 2. Numerous dental caries as above as well as a large periapical lucency involving the right maxillary canine. Follow-up with dentistry is recommended. 3. There is no evidence of overlying cellulitis or periodontal abscess. Medications Administered Current Inpatient Medications Acetaminophen (Acetaminophen 325 Mg Tab) 650 mg PO Q4H PRN PRN Reason: Pain or Fever Stop: 12/15/21 16:58 Last Admin: 11/20/21 16:56 Dose: 650 mg Documented by: Acetaminophen (Acetaminophen 325 Mg Tab) 650 mg PO PRE-TREAT ONE Stop: 11/21/21 16:57 Allopurinol (Allopurinol 300 Mg Tab) 300 mg PO DAILY LEONA Stop: 12/16/21 08:59 Last Admin: 11/21/21 08:00 Dose: 300 mg Documented by: Atorvastatin Calcium (Atorvastatin 20 Mg Tab) 20 mg PO DAILY LEONA Stop: 12/16/21 08:59 Last Admin: 11/21/21 08:00 Dose: 20 mg Documented by: Dextrose (Dextrose 50% 50 Ml Syringe) 25 - 50 ml IV UD PRN; Protocol PRN Reason: Hypoglycemia Protocol Stop: 12/15/21 16:58 Diltiazem HCl (Diltiazem Hcl 240 Mg Capcr) 240 mg PO QAM LEONA Stop: 12/16/21 11:29 Last Admin: 11/21/21 08:00 Dose: 240 mg Documented by: Diphenhydramine HCl (Diphenhydramine Capsule 25 Mg Cap) 25 mg PO PRE-TREAT ONE Stop: 11/21/21 16:57 Docusate Sodium (Docusate Sodium 100 Mg Cap) 100 mg PO HS LEONA Stop: 12/18/21 20:59 Last Admin: 11/20/21 21:12 Dose: Not Given Documented by: Escitalopram Oxalate (Escitalopram Oxalate 10 Mg Tab) 10 mg PO DAILY LEONA Stop: 12/16/21 08:59 Last Admin: 11/21/21 08:00 Dose: 10 mg Documented by: Furosemide (Furosemide 40 Mg/4 Ml Vial) 40 mg IV BID17 [facility] Stop: 12/16/21 08:59 Last Admin: 11/21/21 08:06 Dose: 40 mg Documented by: Glucagon (Glucagon For Inj 1 Mg Vial) 1 mg SQ UD PRN; Protocol PRN Reason: Hypoglycemia Protocol Stop: 12/15/21 16:58 Glucose (Glucose 10 Tabs/Tube) 4 - 8 tabs PO UD PRN; Protocol PRN Reason: Hypoglycemia Protocol Stop: 12/15/21 16:58 Glucose (Glucose 40% Gel 15 Gm Tube) 15 - 30 gm PO UD PRN; Protocol PRN Reason: Hypoglycemia Protocol Stop: 12/15/21 16:58 Sodium Chloride (Nss) 250 mls @ 15 mls/hr IV .[id number] PRN PRN Reason: For Transfusion Stop: 11/21/21 18:57 Insulin Aspart (Insulin Aspart Per Unit) 0 units SC 1130,1630,2100 [facility] Stop: 12/19/21 12:14 Last Admin: 11/20/21 20:41 Dose: Not Given Documented by: Insulin Aspart (Insulin Aspart Per Unit) 0 units SC DAILY@0730 [facility] Stop: 12/20/21 07:29 Last Admin: 11/21/21 08:00 Dose: 12 units Documented by: Insulin Human NPH (Insulin Human Nph) 25 units SC DAILY [facility] Stop: 12/19/21 08:59 Last Admin: 11/21/21 08:00 Dose: 25 units Documented by: Insulin Human NPH (Insulin Human Nph) 20 units SC DAILY@1800 [facility] Stop: 12/20/21 17:59 Last Admin: 11/20/21 17:28 Dose: 20 units Documented by: Loratadine (Loratadine 10 Mg Tab) 10 mg PO DAILY [facility] Stop: 12/16/21 08:59 Last Admin: 11/21/21 08:00 Dose: 10 mg Documented by: Magnesium Oxide (Magnesium Oxide 400 Mg Tab) 400 mg PO BID [facility] Stop: 12/18/21 21:29 Last Admin: 11/21/21 08:00 Dose: 400 mg Documented by: Metoprolol Succinate (Metoprolol Succ 25mg Ext Rel Tab) 25 mg PO QAM [facility] Stop: 12/16/21 11:29 Last Admin: 11/21/21 08:00 Dose: 25 mg Documented by: Miscellaneous (Carbohydrates For Hypoglycemia ) 15 - 30 gm PO UD PRN PRN Reason: Hypoglycemia Protocol Stop: 12/15/21 16:58 Miscellaneous Information (Pharmacy Glycemic Mgmt Consult) 1 ea N/A UD PRN PRN Reason: Consult Stop: 12/15/21 16:58 Ondansetron HCl (Ondansetron Inj 2 Mg/Ml 2 Ml Vial) 4 mg IV Q6H PRN PRN Reason: Nausea Stop: 12/15/21 16:58 Last Admin: 11/15/21 18:04 Dose: 4 mg Documented by: Oxycodone HCl (Oxycodone Hcl Ir 5 Mg Tab (Immediate Release)) 2.5 mg PO Q12H PRN PRN Reason: SEVERE PAIN Stop: 12/04/21 18:22 Last Admin: 11/21/21 08:01 Dose: 2.5 mg Documented by: Pantoprazole Sodium (Pantoprazole 40 Mg Tab) 40 mg PO DAILY [facility] Stop: 12/16/21 08:59 Last Admin: 11/21/21 08:00 Dose: 40 mg Documented by: Polyethylene Glycol (Polyethylene (Miralax) 17 Gm Pack) 17 gm PO DAILY PRN PRN Reason: Constipation Stop: 12/15/21 16:58 Last Admin: 11/18/21 08:02 Dose: 17 gm Documented by: Prednisone (Prednisone 5 Mg Tab) 5 mg PO DAILY [facility]ONA Stop: 12/16/21 08:59 Last Admin: 11/21/21 08:01 Dose: 5 mg Documented by: Tramadol HCl (Tramadol Hcl 50 Mg Tablet) 50 mg PO Q6H PRN PRN Reason: Moderate Pain Stop: 12/15/21 16:58 Last Admin: 11/17/21 07:55 Dose: 50 mg Documented by:
[2021-11-21] MEDS ORDERED: METOPROLOL SUCC 25MG EXT REL TAB PO STA (09:58)
--- NOTE | 2021-11-21 11:00 | Cardiology Progress Note ---
Date of Service November 21, 2021 Assessment & Plan (1) Atrial fibrillation with rapid ventricular response: (2) Edema of both legs: (3) Jaw pain: (4) SOB (shortness of breath): Plan: 1. Atrial fibrillation: Her rate is inadequately controlled. Will increase her metoprolol succinate dose to 50 mg daily for better rate control and plan to further titrate the medication as needed for additional rate control. Continue PO diltiazem at current dosing. She has not been on anticoagulation therapy, presumably given pancytopenia. 2. HFpEF: She appears hypervolemic on examination today. Will increase her IV Lasix to 80 mg BID for further diuresis. Recommend continuing to monitor I's&O's as well as renal function. Low sodium diet. Keep legs elevated. 3. Exertional dyspnea: This should hopefully improve with diuresis as well as rate control of her atrial fibrillation. 4. Jaw pain: As per primary service. Will continue to follow the patient during her hospitalization. Admission and Anticipated Discharge Date Admission Date: November 15, 2021 Subjective Her biggest complaint this morning is ongoing left-sided jaw pain, which is worse when she tries to open her mouth or chew. She denies any chest pain. She reports shortness of breath with any exertion, including ambulating to the bathroom. She reports chronic orthopnea lying flat on her back, but she has been able to sleep on her side comfortably. She reports increased lower extremity edema. She can feel her heart racing before her morning dose of metoprolol, and then her palpitations resolve after about an hour or so. She denies lightheadedness, syncope, or near-syncope. She denies bleeding. Review of Systems Review of Systems: All systems reviewed & are unremarkable except as noted in Subjective Physical Exam Physical Exam: Constitutional: Alert, oriented, in no acute distress HEENT: Head is atraumatic and normocephalic. EOMs intact. Sclera non-icteric. Face is symmetric. No perioral cyanosis. Mucous membranes moist Neck: Elevated JVP with +HJR Pulmonary: Normal respiratory effort, clear to auscultation throughout Cardiac: Irregularly irregular, normal S1 and S2, no gallops, no rubs, no murmurs Extremities: 2-3+ lower extremity edema extending to the knees bilaterally. No clubbing or cyanosis. 2+ radial pulses Abdomen: Normal bowel sounds, soft, non-tender, no abdominal masses palpated Skin: Normal skin color, turgor, and pigmentation. No rash or skin lesions Neurological: Oriented to person, place, and time Results & Data ([facility]) Vital Signs (Past 12 Hours) Vital Signs Temp Pulse Pulse Resp BP Pulse Ox 11/21/21 07:39 98.4 F 121 H 19 147/83 H 97 11/21/21 03:22 97.7 F 86 20 112/72 92 11/21/21 00:04 88 11/20/21 23:08 98.4 F 108 H 18 124/69 96 Diagnostic Findings Telemetry: Atrial fibrillation with a rate in the 80s-100s overnight and 110s- 120s this morning on average, but she did go up to 150s at times. PG Care Time/CCT Total # of Minutes Spent Total Time Spent with Patient: Total time spent is greater than 50% in coordination of care (as documented) at patient's floor/unit and/or counseling patient: Coding Level of Care Code 27834 Subseq Hosp Care Lvl 3 Diagnoses Atrial fibrillation with rapid ventricular response I48.91 Edema of both legs R60.0 Jaw pain R68.84 SOB (shortness of breath) R06.02
--- NOTE | 2021-11-21 12:58 | Pharmacy Report ---
Pharmacy Glycemic Short Note 2 - Date of Service November 21, 2021 - Glycemic Short BSG Results (Last 24 hours): 11/20/21 11/20/21 11/20/21 16:03 19:16 20:24 Glucose POC Glucose 130 H 81 159 H 11/21/21 11/21/21 11/21/21 06:14 07:11 11:05 Glucose 129 H POC Glucose 143 H 74 OUTPATIENT ANTIDIABETIC REGIMEN: * Novolog Mix 70/30 35 units SQ QAM; 28 units SQ with dinner ASSESSMENT: 11/21 * Carmen received 73 units of insulin yesterday (45 units NPH + 28 units novolog) with adequate BSG control (101, 165, 130, 159 mg/dl) * Fasting BSG is acceptable. Lunch BSG is below goal. Will decrease morning dose of NPH and loosen carb coverage with breakfast. 11/20 * Patient received total of 97 units of insulin yesterday, of which 50 units were NPH * BSGs elevated yesterday due to increase in steroids, NPH dose had been increased b/c of that - BSGs now trending down this morning * Fasting BSG 116 mg/dL - continues on usual prednisone dose today of 5 mg daily, will keep higher NPH dose for this AM, but will go back to prior dose of 20 units for dinner time since no extra doses of steroids given today 11/16 * 81 y/o F admitted for A Fib. Patient with history of Type 2 diabetes managed at home on Novolog mix insulin BID. * Patient was admitted here last month. At that time she was ordered NPH insulin for basal coverage and Novolog bolus. Continued the same. * She received 20 units of NPH last night. Fasting BSG this AM was 87 mg/dl. * NPH 20 units ordered this AM (slightly reduced from 30 units that she was on during recent admission). Continued with 20 units at dinner. * Novolog parameters based on stress of 2. PLAN FOR INPATIENT GLYCEMIC CONTROL: * Basal insulin * NPH 22 units qam * NPH 20 units daily with dinner * Bolus insulin * NovoLog per scale ACHS or Q6hrs while NPO * Goal Range: Low 120 mg/dL - High 160 mg/dL * Correction Factor: 25 mg/dL/unit (CF 20 with breakfast) * Nutritional / Prandial insulin per carb ratio of 1 unit per 7 grams CHO consumed (CR 6 with breakfast)
[2021-11-21] MEDS: DOCUSATE SODIUM 100 MG CAP PO SCH (20:40)
[2021-11-21 21:47] LABS: Hematocrit (blood only) 24.9 % (37-47); Hemoglobin 8.2 g/dL (12.0-16.0); Mean Corpuscular Hemoglobin 28.5 pg (25-34); Mean Corpuscular Hgb Conc 32.9 g/dL (32-36); Mean Corpuscular Volume 86.5 fL (80-100); Platelet Count 12 K/uL (130-400); RDW Coefficient of Variation 14.8 % (11.5-14.5); RDW Standard Deviation 47.1 fL (36.4-46.3); Red Blood Count 2.88 M/uL (4.2-5.4); White Blood Count 1.94 K/uL (4.8-10.8)
[2021-11-21 21:48] LABS: ALC (manual) 0.56 K/uL (1.2-3.4); ANC (manual) 1.33 K/uL (1.4-6.5); Blast # (manual) 0.03 K/uL (0-0); Blast Cells % (manual) 1.8 %; Hypogranular Neutrophils 1+; Lymphocytes # (manual) 0.56 K/uL (1.2-3.4); Lymphocytes % (manual) 28.9 %; Monocytes # (manual) 0.02 K/uL (0.11-0.59); Monocytes % (manual) 0.9 %; Neutrophils # (manual) 1.33 K/uL (1.4-6.5); Neutrophils % (manual) 68.4 %; Platelet Estimate SIGNIFIC DECREASED (Normal)
[2021-11-22] MEDS: traMADol HCL 50 MG TABLET PO PRN (00:24)
[2021-11-22] MEDS: ACETAMINOPHEN 325 MG TAB PO PRN (01:11)
[2021-11-22 06:13] LABS: BUN Creatinine Ratio 30.1 (10-20); Creatinine Clr Calc Pharmacy 36.3 ml/min; Est GFR (African American) 42.8 ml/min; Est GFR (Non-African American) 36.9 ml/min; Magnesium 1.9 mg/dl (1.7-2.4); Phosphorus 3.7 mg/dl (2.5-4.9); Potassium 3.8 mmol/L (3.5-5.1)
[2021-11-22 06:20] LABS: Hematocrit (blood only) 22.6 % (37-47); Hemoglobin 7.5 g/dL (12.0-16.0); Mean Corpuscular Hemoglobin 28.5 pg (25-34); Mean Corpuscular Hgb Conc 33.2 g/dL (32-36); Mean Corpuscular Volume 85.9 fL (80-100); Platelet Count 12 K/uL (130-400); RDW Coefficient of Variation 15.1 % (11.5-14.5); RDW Standard Deviation 47.9 fL (36.4-46.3); Red Blood Count 2.63 M/uL (4.2-5.4); White Blood Count 1.92 K/uL (4.8-10.8)
[2021-11-22 06:22] LABS: Platelet Estimate SIGNIFIC DECREASED (Normal)
[2021-11-22] MEDS: INSULIN ASPART PER UNIT SC SCH ×4 (08:07→20:28)
[2021-11-22] MEDS: INSULIN HUMAN NPH SC SCH ×2 (08:09→17:01)
[2021-11-22] MEDS: oxyCODONE HCL IR 5 MG TAB (IMMEDIATE RELEASE) PO PRN (08:20)
[2021-11-22] MEDS: METOPROLOL SUCC 50MG EXT REL TAB PO SCH ×2 (08:53→08:55)
[2021-11-22] MEDS: LORATADINE 10 MG TAB PO SCH (08:53)
[2021-11-22] MEDS: MAGNESIUM OXIDE 400 MG TAB PO SCH ×2 (08:53→20:43)
[2021-11-22] MEDS: PANTOprazole 40 MG TAB PO SCH (08:54)
[2021-11-22] MEDS: dilTIAZem HCL 240 MG CAPCR PO SCH (08:54)
[2021-11-22] MEDS: ESCITALOPRAM OXALATE 10 MG TAB PO SCH (08:54)
[2021-11-22] MEDS: ATORVASTATIN 20 MG TAB PO SCH (08:55)
[2021-11-22] MEDS: allopurinoL 300 MG TAB PO SCH (08:56)
[2021-11-22] MEDS: FUROSEMIDE 40 MG/4 ML VIAL IV SCH ×2 (08:57→17:01)
[2021-11-22] MEDS ORDERED: METOPROLOL SUCC 50MG EXT REL TAB PO STA (10:28)
[2021-11-22] MEDS: predniSONE 5 MG TAB PO SCH (10:31)
--- NOTE | 2021-11-22 10:44 | Cardiology Progress Note ---
Date of Service November 22, 2021 Assessment & Plan (1) Atrial fibrillation with rapid ventricular response: (2) Edema of both legs: (3) Jaw pain: (4) SOB (shortness of breath): Plan: 1. Atrial fibrillation: Her rate remains elevated. Will further increase her metoprolol succinate dose to 100 mg daily for better rate control and plan to further titrate the medication as needed for additional rate control. Continue PO diltiazem at current dosing. She has not been on anticoagulation therapy, presumably given pancytopenia. 2. HFpEF: Volume status has improved compared to yesterday, but she continues to have some edema on exam. Labs have shown stable renal function. Continue diuresis with IV Lasix 80 mg BID. Continue to monitor I's&O's as well as renal function. Low sodium diet. Keep legs elevated. 3. Jaw pain: As per primary service. Will continue to follow the patient during her hospitalization. Admission and Anticipated Discharge Date Admission Date: November 15, 2021 Subjective She states that she received a transfusion yesterday, and she has a little bit more energy today. She continues to note shortness of breath with exertion. She sleeps with the head of her bed only slightly elevated. She has noted improvement in her lower extremity edema. She denies chest pain, palpitations, or lightheadedness. Her biggest complaint continues to be left-sided jaw pain. Physical Exam Physical Exam: Constitutional: Alert, oriented, in no acute distress HEENT: Head is atraumatic and normocephalic. EOMs intact. Sclera non-icteric. Face is symmetric. No perioral cyanosis. Mucous membranes moist Neck: No appreciable JVD Pulmonary: Normal respiratory effort, clear to auscultation throughout Cardiac: Irregularly irregular, normal S1 and S2, no gallops, no rubs, no murmurs Extremities: 2+ lower extremity edema extending to the knees bilaterally. No clubbing or cyanosis. 2+ radial pulses Abdomen: Normal bowel sounds, soft, non-tender, no abdominal masses palpated Skin: Normal skin color, turgor, and pigmentation. No rash or skin lesions Neurological: Oriented to person, place, and time Results & Data ([facility]) Vital Signs (Past 12 Hours) Vital Signs Temp Pulse Pulse Resp BP Pulse Ox 11/22/21 10:20 112 H 11/22/21 07:30 97.7 F 107 H 16 130/70 96 11/22/21 04:05 97.9 F 94 H 17 115/72 98 11/21/21 23:02 97.9 F 103 H 18 128/69 96 11/21/21 23:00 112 H Laboratory Results Laboratory Results - last 24 hr 11/21/21 11/21/21 11/21/21 10:10 11:05 16:27 WBC RBC Hgb Hct MCV MCH MCHC RDW Std Deviation RDW Coeff of Griffin Plt Count Neutrophils % (Manual) Lymphocytes % (Manual) Monocytes % (Manual) Blast Cells % (Manual) Neutrophils # (Manual) Total Absolute Neuts Lymphocytes # (Manual) Total Abs Lymphocytes Monocytes # (Manual) Blast Cells # (Man) Hypogranular Neuts Platelet Estimate Sodium Potassium Chloride Carbon Dioxide Anion Gap BUN Creatinine Est Cr Clr Drug Dosing Est GFR ( Amer) Est GFR (Non-Af Amer) BUN/Creatinine Ratio Glucose POC Glucose 74 157 H Calcium Phosphorus Magnesium Blood Type O Positive Antibody Screen NEGATIVE Crossmatch See Detail 11/21/21 11/21/21 11/22/21 20:02 20:30 05:21 WBC 1.94 L 1.92 L RBC 2.88 L 2.63 L Hgb 8.2 L 7.5 L Hct 24.9 L 22.6 L MCV 86.5 85.9 MCH 28.5 28.5 MCHC 32.9 33.2 RDW Std Deviation 47.1 H 47.9 H RDW Coeff of Griffin 14.8 H 15.1 H Plt Count 12 L* 12 L* Neutrophils % (Manual) 68.4 Lymphocytes % (Manual) 28.9 Monocytes % (Manual) 0.9 Blast Cells % (Manual) 1.8 Neutrophils # (Manual) 1.33 L Total Absolute Neuts 1.33 L Lymphocytes # (Manual) 0.56 L Total Abs Lymphocytes 0.56 L Monocytes # (Manual) 0.02 L Blast Cells # (Man) 0.03 H Hypogranular Neuts 1+ Platelet Estimate SIGNIFIC DECREASED SIGNIFIC DECREASED Sodium Potassium Chloride Carbon Dioxide Anion Gap BUN Creatinine Est Cr Clr Drug Dosing Est GFR ( Amer) Est GFR (Non-Af Amer) BUN/Creatinine Ratio Glucose POC Glucose 120 H Calcium Phosphorus Magnesium Blood Type Antibody Screen Crossmatch 06/10/22 06/10/22 05:21 07:07 WBC RBC Hgb Hct MCV MCH MCHC RDW Std Deviation RDW Coeff of Griffin Plt Count Neutrophils % (Manual) Lymphocytes % (Manual) Monocytes % (Manual) Blast Cells % (Manual) Neutrophils # (Manual) Total Absolute Neuts Lymphocytes # (Manual) Total Abs Lymphocytes Monocytes # (Manual) Blast Cells # (Man) Hypogranular Neuts Platelet Estimate Sodium 134 L Potassium 3.8 Chloride 99 Carbon Dioxide 32 Anion Gap 3 BUN 41 H Creatinine 1.36 H Est Cr Clr Drug Dosing 36.3 Est GFR ( Amer) 42.8 Est GFR (Non-Af Amer) 36.9 BUN/Creatinine Ratio 30.1 H Glucose 103 H POC Glucose 136 H Calcium 8.0 L Phosphorus 3.7 Magnesium 1.9 Blood Type Antibody Screen Crossmatch Diagnostic Findings Telemetry monitoring: Atrial fibrillation with a rate around 100 bpm overnight and 110s-120s this morning. PG Care Time/CCT Total # of Minutes Spent Total Time Spent with Patient: Total time spent is greater than 50% in coordination of care (as documented) at patient's floor/unit and/or counseling patient: Coding Level of Care Code 35478 Subseq Hosp Care Lvl 3 Diagnoses Atrial fibrillation with rapid ventricular response I48.91 Edema of both legs R60.0 Jaw pain R68.84 SOB (shortness of breath) R06.02
--- NOTE | 2021-11-22 16:58 | Hospitalist Progress Note ---
Date of Service November 22, 2021 Assessment & Plan (1) Pain in lower jaw: Plan: Acute, persistent left mandibular pain with TTP in TMJ and difficulty opening mouth and chewing at this point. Improved with scheduled tylenol and oxycodone. Cannot give NSAIDs because of low platelets, narcotics are not working well to control pain. She has known dental caries and reports a h/o dental infection with extraction within the last [address] on 11/15 revealed multiple caries but no kamila abscess. Request OMFS evaluation with ongoing severe pain and difficulty tolerating PO. (2) Acute on chronic diastolic (congestive) heart failure: Plan: CXR: Cardiomegaly with pulmonary edema. Moderate size right pleural effusion with right basilar consolidation, progressed from the prior study. Last Echo on 11/11/2021: EF: 60-65%, mild concentric LVH, aortic valve sclerosis without stenosis, mild AR, mild to moderate MR, moderate TR Pitting edema has improved. Net 1L out overnight. Home bumex 2mg BID and she was getting only lasix 40mg bid, which is more improved now on the 80mg bid, more in line with home dosing. She feels improved but still has pitting edema in her lower extremities and dyspnea with exertion. She examines as hypervolemic. Net negative output overnight. Cont daily standing weights, strict i/Os, salt restricted diet. (3) Atrial fibrillation with rapid ventricular response: Plan: Afib with RVR on admission with tachycardia noted in MTU, suspected noncompliance with home medications as a cause. Preserved EF. She was initially placed on a cardizem drip which was transitioned to PO cardizem 240mg daily and is continued on metoprolol succinate -- Today her heart rate is more controlled with additional metoprolol. Cont to monitor on telemetry. 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 No active bleeding. Patient feels poorly with SOB on exertion that may be related to fluid overload, anemia or her jaw issues. Hb improved after 1 unit pRBCs given. 1 Unit platelets given --12 today. (5) MDS (myelodysplastic syndrome): Plan: chronic, see plan below. Cont per outpatient director ship. Dr. Barrientos (6) Demand ischemia: Plan: elevated trop thought 2/2 demand ischemia per cardiology. no further workup at this time. (7) Hypomagnesemia: Plan: repleted (8) CKD (chronic kidney disease), stage III: Plan: chronic, at baseline. Cont to monitor with daily labs while on IV diuretic therapy. (9) Insulin dependent diabetes mellitus: Plan: Most recent A1c: 7.2 on 10/2021 Pharmacy on board for glycemic management-at goal. Continue NPH and novolog sliding scale Continue monitor BS (10) Rheumatoid arthritis: Plan: chronic, stable. Chronic prednisone use. will review outpatient Rheum notes. (11) Chronic steroid use: Plan: Continue prednisone (12) Lumbar spinal stenosis: Plan: Chronic Back pain, no report today of new issues. Continue tramadol prn (13) Gout: Plan: chronic, stable. Continue allopurinol per home regimen. (14) DVT prophylaxis: Plan: SCDs, ambulate as tolerated chemoprophylaxis contraindicated in setting of thrombocytopenia. Full Code Dispo-cont PCU with elevated heart rates. ?rehab vs home, patient lives alone and not ready to go yet. Quyen Alex DO [place] Hospitalist Admission and Anticipated Discharge Date Admission Date: November 15, 2021 Subjective 81 yo F admitted with afib w RVR with persistent tachycardia. Also with known transfusion dependent MDS no bleeding improved left jaw pain with oxycodone this am feels more energy since receiving the blood reports that yesterday she started feeling symptoms of anemia and she is better Review of Systems Review of Systems: All systems were reviewed and negative except as indicated above. Physical Exam Physical Exam: CONSTITUTIONAL: WNWD, vitals as above, NAD EYES: normal conjunctivae, no scleral icterus, MMM ENT: external ear and nose normal, oropharynx clear, but cannot open her mouth very wide 2/2 pain in left mandible which is also painful to palpation, no maxillary or ethmoid sinus tenderness, poor dentition with missing teeth noted. NECK: trachea midline RESPIRATORY: clear to auscultation bilaterally, no crackles, rales or wheezes, normal respiratory effort CARDIOVASCULAR: regular rate and rhythm, S1 and 2 heard without murmurs, gallops or rubs, no JVD, 2+ pitting edema to [place] bilaterally including feet CHEST: inspection of chest was normal GASTROINTESTINAL: soft, nontender, ND, no guarding MUSCULOSKELETAL: generalized weakness, head is normocephalic and atraumatic, SKIN: warm and dry, NEUROLOGIC: CN 2-12 grossly intact, no sensory deficit, normal cognition, normal speech, no tremor PSYCHIATRIC: alert cooperative and oriented to person, place and time. Results & Data Results & Data ([facility]) Vital Signs (Past 12 Hours) Vital Signs Temp Pulse Pulse Resp BP Pulse Ox 11/22/21 15:35 37.0 C 72 19 115/73 94 11/22/21 11:47 36.7 C 105 H 18 119/81 96 11/22/21 10:20 112 H 11/22/21 07:30 36.5 C 107 H 16 130/70 96 Laboratory Results Short CBC 11/21/21 11/22/21 Range/Units 20:30 05:21 WBC 1.94 L 1.92 L (4.8-10.8) K/uL Hgb 8.2 L 7.5 L (12.0-16.0) g/dL Hct 24.9 L 22.6 L (37-47) % Plt Count 12 L* 12 L* (130-400) K/uL BMP 11/22/21 05:21 Sodium 134 L Potassium 3.8 Chloride 99 Carbon Dioxide 32 BUN 41 H Creatinine 1.36 H Glucose 103 H Calcium 8.0 L Medications Administered Current Inpatient Medications Acetaminophen (Acetaminophen 325 Mg Tab) 650 mg PO Q4H PRN PRN Reason: Pain or Fever Stop: 12/15/21 16:58 Last Admin: 11/22/21 01:11 Dose: 650 mg Documented by: Allopurinol (Allopurinol 300 Mg Tab) 300 mg PO DAILY LEONA Stop: 12/16/21 08:59 Last Admin: 11/22/21 08:56 Dose: 300 mg Documented by: Atorvastatin Calcium (Atorvastatin 20 Mg Tab) 20 mg PO DAILY LEONA Stop: 12/16/21 08:59 Last Admin: 11/22/21 08:55 Dose: 20 mg Documented by: Dextrose (Dextrose 50% 50 Ml Syringe) 25 - 50 ml IV UD PRN; Protocol PRN Reason: Hypoglycemia Protocol Stop: 12/15/21 16:58 Diltiazem HCl (Diltiazem Hcl 240 Mg Capcr) 240 mg PO QAM [facility] Stop: 12/16/21 11:29 Last Admin: 11/22/21 08:54 Dose: 240 mg Documented by: Docusate Sodium (Docusate Sodium 100 Mg Cap) 100 mg PO HS LEONA Stop: 12/18/21 20:59 Last Admin: 11/21/21 20:40 Dose: 100 mg Documented by: Escitalopram Oxalate (Escitalopram Oxalate 10 Mg Tab) 10 mg PO DAILY LEONA Stop: 12/16/21 08:59 Last Admin: 11/22/21 08:54 Dose: 10 mg Documented by: Furosemide (Furosemide 40 Mg/4 Ml Vial) 80 mg IV BID17 [facility]ONA Stop: 12/21/21 16:59 Last Admin: 11/22/21 08:57 Dose: 80 mg Documented by: Glucagon (Glucagon For Inj 1 Mg Vial) 1 mg SQ UD PRN; Protocol PRN Reason: Hypoglycemia Protocol Stop: 12/15/21 16:58 Glucose (Glucose 10 Tabs/Tube) 4 - 8 tabs PO UD PRN; Protocol PRN Reason: Hypoglycemia Protocol Stop: 12/15/21 16:58 Glucose (Glucose 40% Gel 15 Gm Tube) 15 - 30 gm PO UD PRN; Protocol PRN Reason: Hypoglycemia Protocol Stop: 12/15/21 16:58 Insulin Aspart (Insulin Aspart Per Unit) 0 units SC 1130,1630,2100 [facility] Stop: 12/19/21 12:14 Last Admin: 11/22/21 12:40 Dose: 14 units Documented by: Insulin Aspart (Insulin Aspart Per Unit) 0 units SC DAILY@0730 [facility] Stop: 12/20/21 07:29 Last Admin: 11/22/21 08:07 Dose: 11 units Documented by: Insulin Human NPH (Insulin Human Nph) 20 units SC DAILY@1800 [facility] Stop: 12/20/21 17:59 Last Admin: 11/21/21 17:17 Dose: 20 units Documented by: Insulin Human NPH (Insulin Human Nph) 22 units SC DAILY [facility] Stop: 12/22/21 08:59 Last Admin: 11/22/21 08:09 Dose: 22 units Documented by: Loratadine (Loratadine 10 Mg Tab) 10 mg PO DAILY [facility] Stop: 12/16/21 08:59 Last Admin: 11/22/21 08:53 Dose: 10 mg Documented by: Magnesium Oxide (Magnesium Oxide 400 Mg Tab) 400 mg PO BID [facility] Stop: 12/18/21 21:29 Last Admin: 11/22/21 08:53 Dose: 400 mg Documented by: Metoprolol Succinate (Metoprolol Succ 50mg Ext Rel Tab) 100 mg PO QAM [facility] Stop: 12/23/21 08:59 Miscellaneous (Carbohydrates For Hypoglycemia ) 15 - 30 gm PO UD PRN PRN Reason: Hypoglycemia Protocol Stop: 12/15/21 16:58 Miscellaneous Information (Pharmacy Glycemic Mgmt Consult) 1 ea N/A UD PRN PRN Reason: Consult Stop: 12/15/21 16:58 Ondansetron HCl (Ondansetron Inj 2 Mg/Ml 2 Ml Vial) 4 mg IV Q6H PRN PRN Reason: Nausea Stop: 12/15/21 16:58 Last Admin: 11/15/21 18:04 Dose: 4 mg Documented by: Oxycodone HCl (Oxycodone Hcl Ir 5 Mg Tab (Immediate Release)) 2.5 mg PO Q12H PRN PRN Reason: SEVERE PAIN Stop: 12/04/21 18:22 Last Admin: 11/22/21 08:20 Dose: 2.5 mg Documented by: Pantoprazole Sodium (Pantoprazole 40 Mg Tab) 40 mg PO DAILY [facility] Stop: 12/16/21 08:59 Last Admin: 11/22/21 08:54 Dose: 40 mg Documented by: Polyethylene Glycol (Polyethylene (Miralax) 17 Gm Pack) 17 gm PO DAILY PRN PRN Reason: Constipation Stop: 12/15/21 16:58 Last Admin: 11/18/21 08:02 Dose: 17 gm Documented by: Prednisone (Prednisone 5 Mg Tab) 5 mg PO DAILY [facility] Stop: 12/16/21 08:59 Last Admin: 11/22/21 10:31 Dose: 5 mg Documented by: Tramadol HCl (Tramadol Hcl 50 Mg Tablet) 50 mg PO Q6H PRN PRN Reason: Moderate Pain Stop: 12/15/21 16:58 Last Admin: 11/22/21 00:24 Dose: 50 mg Documented by:
[2021-11-22] MEDS ORDERED: ACETAMINOPHEN 500 MG TAB PO SCH (17:15)
[2021-11-22] MEDS: DOCUSATE SODIUM 100 MG CAP PO SCH (20:43)
[2021-11-23] MEDS: ACETAMINOPHEN 500 MG TAB PO SCH ×4 (07:39→16:51)
[2021-11-23] MEDS: allopurinoL 300 MG TAB PO SCH (08:00)
[2021-11-23] MEDS: METOPROLOL SUCC 50MG EXT REL TAB PO SCH (08:00)
[2021-11-23] MEDS: predniSONE 5 MG TAB PO SCH (08:00)
[2021-11-23] MEDS: MAGNESIUM OXIDE 400 MG TAB PO SCH ×2 (08:01→20:30)
[2021-11-23] MEDS: ESCITALOPRAM OXALATE 10 MG TAB PO SCH (08:01)
[2021-11-23] MEDS: dilTIAZem HCL 240 MG CAPCR PO SCH (08:01)
[2021-11-23] MEDS: PANTOprazole 40 MG TAB PO SCH (08:01)
[2021-11-23] MEDS: ATORVASTATIN 20 MG TAB PO SCH (08:01)
[2021-11-23] MEDS: LORATADINE 10 MG TAB PO SCH (08:02)
[2021-11-23] MEDS: INSULIN HUMAN NPH SC SCH ×2 (08:02→16:52)
[2021-11-23] MEDS: FUROSEMIDE 40 MG/4 ML VIAL IV SCH ×2 (08:02→16:52)
[2021-11-23] MEDS: INSULIN ASPART PER UNIT SC SCH ×5 (08:03→20:35)
[2021-11-23 08:46] LABS: Calcium 8.2 mg/dl (8.5-10.1); Creatinine Clr Calc Pharmacy 38.9 ml/min; Est GFR (African American) 45.6 ml/min; Est GFR (Non-African American) 39.4 ml/min; Magnesium 1.9 mg/dl (1.7-2.4); Potassium 3.3 mmol/L (3.5-5.1)
[2021-11-23 09:00] LABS: Hematocrit (blood only) 23.4 % (37-47); Hemoglobin 7.7 g/dL (12.0-16.0); Mean Corpuscular Hemoglobin 28.3 pg (25-34); Mean Corpuscular Hgb Conc 32.9 g/dL (32-36); Platelet Count 11 K/uL (130-400); RDW Coefficient of Variation 14.8 % (11.5-14.5); RDW Standard Deviation 46.9 fL (36.4-46.3); Red Blood Count 2.72 M/uL (4.2-5.4); White Blood Count 1.91 K/uL (4.8-10.8)
[2021-11-23] MEDS ORDERED: POTASSIUM CHLORIDE CRTAB 20 MEQ TABCR PO ONE (09:23)
--- NOTE | 2021-11-23 10:26 | Cardiology Progress Note ---
Date of Service November 23, 2021 Assessment & Plan (1) Atrial fibrillation with rapid ventricular response: (2) Edema of both legs: (3) Jaw pain: (4) SOB (shortness of breath): Plan: 1. Atrial fibrillation: She continues to have mildly elevated heart rates. Her medical regimen for atrial fibrillation has changed considerably over the past several months and through different hospitalizations. She is not appear to be overtly symptomatic. Metoprolol was increased yesterday. I think we will monitor her response to higher doses of metoprolol over the next day or 2. No anticoagulation based on her dependence on transfusions and significant thrombocytopenia. 2. HFpEF: She seems to be doing well with diuresis. Still lower extremity edema and an element of volume overload but overall her pulmonary exam is benign. She has an element of dyspnea with activity that may be related more to obesity, deconditioning and anemia. Renal function is stable. I think we can continue her current regimen of diuretics. 3. Jaw pain: Improved with oxycodone. Admission and Anticipated Discharge Date Admission Date: November 15, 2021 Subjective This morning the patient was feeling better. She stated that yesterday her jaw pain was significantly improved with administration of oxycodone. In fact, she was able to eat breakfast this morning with minimal difficulty. After eating Cheerios however she did note some mild discomfort in the left jaw. She did not report any dizziness or lightheadedness. No sense of palpitation. No signifi cant breathing difficulty at rest, but some mild dyspnea with activity. she reports being able to ambulate in the lewis yesterday. She still is concerned about her lower extremity edema. Review of Systems Review of Systems: Per HPI Physical Exam Physical Exam: Constitutional: Alert, oriented, in no acute distress HEENT: Head is atraumatic and normocephalic. EOMs intact. Sclera non-icteric. Face is symmetric. No perioral cyanosis. Mucous membranes moist Pulmonary: Normal respiratory effort, clear to auscultation throughout Cardiac: Irregularly irregular, normal S1 and S2, no gallops, no rubs, no murmurs Extremities: 2+ lower extremity edema extending to the knees bilaterally. No clubbing or cyanosis. 2+ radial pulses Abdomen: Obese Skin: Normal skin color, turgor, and pigmentation. No rash or skin lesions Neurological: Oriented to person, place, and time. Insert all questions appropriately Results & Data ([facility]) Vital Signs (Past 12 Hours) Vital Signs Temp Pulse Pulse Resp BP Pulse Ox 11/23/21 07:24 36.3 C L 62 18 144/74 H 99 11/23/21 07:23 91 H 11/23/21 03:01 36.5 C 86 18 142/68 H 97 11/22/21 22:39 36.5 C 90 18 134/68 95 Laboratory Results Abnormal Lab Results 11/22/21 11/22/21 11/22/21 11:06 16:06 20:02 WBC RBC Hgb Hct MCV MCH MCHC RDW Std Deviation RDW Coeff of Griffin Plt Count Sodium Potassium Chloride Carbon Dioxide Anion Gap BUN Creatinine Est Cr Clr Drug Dosing Est GFR ( Amer) Est GFR (Non-Af Amer) BUN/Creatinine Ratio Glucose POC Glucose 172 H 128 H 85 Calcium Magnesium 11/22/21 11/23/21 11/23/21 22:38 07:01 08:17 WBC 1.91 L RBC 2.72 L Hgb 7.7 L Hct 23.4 L MCV 86.0 MCH 28.3 MCHC 32.9 RDW Std Deviation 46.9 H RDW Coeff of Griffin 14.8 H Plt Count 11 L* Sodium Potassium Chloride Carbon Dioxide Anion Gap BUN Creatinine Est Cr Clr Drug Dosing Est GFR ( Amer) Est GFR (Non-Af Amer) BUN/Creatinine Ratio Glucose POC Glucose 185 H 113 H Calcium Magnesium 11/23/21 08:17 WBC RBC Hgb Hct MCV MCH MCHC RDW Std Deviation RDW Coeff of Griffin Plt Count Sodium 132 L Potassium 3.3 L Chloride 97 L Carbon Dioxide 30 Anion Gap 5 BUN 40 H Creatinine 1.29 H Est Cr Clr Drug Dosing 38.9 Est GFR ( Amer) 45.6 Est GFR (Non-Af Amer) 39.4 BUN/Creatinine Ratio 31.0 H Glucose 139 H POC Glucose Calcium 8.2 L Magnesium 1.9 PG Care Time/CCT Total # of Minutes Spent Total Time Spent with Patient: Total time spent is greater than 50% in coordination of care (as documented) at patient's floor/unit and/or counseling patient: Coding Level of Care Code 28106 Subseq Hosp Care Lvl 2 Diagnoses Atrial fibrillation with rapid ventricular response I48.91 Edema of both legs R60.0 Jaw pain R68.84 SOB (shortness of breath) R06.02
--- NOTE | 2021-11-23 10:47 | Pharmacy Report ---
Pharmacy Glycemic Short Note 2 - Date of Service November 23, 2021 - Glycemic Short BSG Results (Last 24 hours): 11/22/21 11/22/21 11/22/21 11:06 16:06 20:02 Glucose POC Glucose 172 H 128 H 85 11/22/21 11/23/21 11/23/21 22:38 07:01 08:17 Glucose 139 H POC Glucose 185 H 113 H OUTPATIENT ANTIDIABETIC REGIMEN: * Novolog Mix 70/30 35 units SQ QAM; 28 units SQ with dinner ASSESSMENT: 11/23 * Blood sugars at goal - HS BSG on lower end, 85mg/dl, this is due to RN giving the wrong CR at lunch and dinner yesterday - reviewed with RN to give proper CF/CR based on time on AUG * No changes in insulin regimen needed at this time 11/21 * Carmen received 73 units of insulin yesterday (45 units NPH + 28 units novolog) with adequate BSG control (101, 165, 130, 159 mg/dl) * Fasting BSG is acceptable. Lunch BSG is below goal. Will decrease morning dose of NPH and loosen carb coverage with breakfast. 11/20 * Patient received total of 97 units of insulin yesterday, of which 50 units were NPH * BSGs elevated yesterday due to increase in steroids, NPH dose had been increased b/c of that - BSGs now trending down this morning * Fasting BSG 116 mg/dL - continues on usual prednisone dose today of 5 mg daily, will keep higher NPH dose for this AM, but will go back to prior dose of 20 units for dinner time since no extra doses of steroids given today 11/16 * 81 y/o F admitted for A Fib. Patient with history of Type 2 diabetes managed at home on Novolog mix insulin BID. * Patient was admitted here last month. At that time she was ordered NPH insulin for basal coverage and Novolog bolus. Continued the same. * She received 20 units of NPH last night. Fasting BSG this AM was 87 mg/dl. * NPH 20 units ordered this AM (slightly reduced from 30 units that she was on during recent admission). Continued with 20 units at dinner. * Novolog parameters based on stress of 2. PLAN FOR INPATIENT GLYCEMIC CONTROL: * Basal insulin * NPH 22 units QAM * NPH 20 units daily with dinner * Bolus insulin * NovoLog per scale ACHS or Q6hrs while NPO * Goal Range: Low 110 mg/dL - High 140 mg/dL * Correction Factor: 25 mg/dL/unit (CF 20 with breakfast) * Nutritional / Prandial insulin per carb ratio of 1 unit per 7 grams CHO consumed (CR 6 with breakfast)
--- NOTE | 2021-11-23 15:59 | Hospitalist Progress Note ---
Date of Service November 23, 2021 Assessment & Plan (1) Pain in lower jaw: Plan: Left mandibular pain/TMJ Pain Likely due to dental Caries/periodontal disease --Face CT:There is no evidence of facial bone fracture.Numerous dental caries as above as well as a large periapical lucency involving the right maxillary canine. Follow-up with dentistry is recommended. There is no evidence of overlying cellulitis or periodontal abscess. --CT Head:No acute intracranial abnormality. Pain control Avoid NSAIDs due to low platelets Oromaxillary facial surgery consulted (2) Acute on chronic diastolic (congestive) heart failure: Plan: CXR: Cardiomegaly with pulmonary edema. Moderate size right pleural effusion with right basilar consolidation, progressed from the prior study. Last Echo on 11/11/2021: EF: 60-65%, mild concentric LVH, aortic valve sclerosis without stenosis, mild AR, mild to moderate MR, moderate TR -- Continue IV diuresis Monitor I's and O's, daily weight, renal function and lites Appreciate cardiology input Saturating well on room air (3) Atrial fibrillation with rapid ventricular response: Plan: Afib with RVR Suspected noncompliance with home medications Initially on Cardizem drip Continue Cardizem, metoprolol Appreciate cardiology input Currently not on anticoagulation (4) Pancytopenia: Plan: Acquired pancytopenia due to MDS Chronic, transfusion dependent No acute bleeding issues S/P 1 unit PRBC, platelets Monitor CBC Transfuse as needed (5) MDS (myelodysplastic syndrome): Plan: chronic Follows with outpatient senior supply chain analyst. Dr. Barrientos (6) Demand ischemia: Plan: Likely demand ischemia per cardiology (7) Hypomagnesemia: Plan: Replace as needed (8) CKD (chronic kidney disease), stage III: Plan: chronic, at baseline. Monitor renal function (9) Insulin dependent diabetes mellitus: Plan: Most recent A1c: 7.2 on 10/2021 Pharmacy on board for glycemic management. Continue NPH and novolog sliding scale Continue monitor BS (10) Rheumatoid arthritis: Plan: On Chronic prednisone (11) Chronic steroid use: Plan: Continue prednisone (12) Lumbar spinal stenosis: Plan: Chronic Back pain, no report today of new issues. Continue tramadol prn (13) Gout: Plan: Continue allopurinol (14) DVT prophylaxis: Plan: SCDs Re: Pancytopenia Code Status Full Code Admission and Anticipated Discharge Date Admission Date: November 15, 2021 Subjective Patient is seen and examined at bedside Jaw is much improved today Leg swelling slowly improving Denies any chest pain, dizziness, nausea, vomiting Has minimal dyspnea on exertion Review of Systems Review of Systems: All systems reviewed & are unremarkable except as noted in Subjective Physical Exam Physical Exam: Physical Exam: Vitals signs as noted above General Appearance:Morbidly Obese, no apparent distress Head: normocephalic, Atraumatic Eyes: normal inspection, EOMI Neck: supple, Trachea midline Respiratory/Chest: Normal breath sounds, CTA, No accessory muscle use Cardiovascular: Irregularly irregular, No murmur Abdomen/GI:Soft, Non tender, Bowel sounds present Extremities/Musculoskeletal:normal inspection, 3+ B/L LE edema Neurologic/Psych:AAOX3, grossly no focal neurological deficits Skin: normal color, warm Results & Data Results & Data ([facility]) Vital Signs (Past 12 Hours) Vital Signs Temp Pulse Pulse Resp BP Pulse Ox 11/23/21 15:28 89 11/23/21 15:22 37.9 C H 97 H 18 116/67 97 11/23/21 11:42 37.3 C 68 20 152/73 H 97 11/23/21 07:24 36.3 C L 62 18 144/74 H 99 11/23/21 07:23 91 H Laboratory Results Short CBC 11/23/21 Range/Units 08:17 WBC 1.91 L (4.8-10.8) K/uL Hgb 7.7 L (12.0-16.0) g/dL Hct 23.4 L (37-47) % Plt Count 11 L* (130-400) K/uL [facility] 11/23/21 08:17 Sodium 132 L Potassium 3.3 L Chloride 97 L Carbon Dioxide 30 BUN 40 H Creatinine 1.29 H Glucose 139 H Calcium 8.2 L
[2021-11-23] MEDS: DOCUSATE SODIUM 100 MG CAP PO SCH (21:19)
[2021-11-24] MEDS: ACETAMINOPHEN 500 MG TAB PO SCH ×3 (01:00→16:55)
[2021-11-24 06:32] LABS: BUN Creatinine Ratio 32.8 (10-20); Creatinine Clr Calc Pharmacy 41.1 ml/min; Est GFR (African American) 48.8 ml/min; Est GFR (Non-African American) 42.1 ml/min; Potassium 3.6 mmol/L (3.5-5.1)
[2021-11-24 06:39] LABS: Hematocrit (blood only) 23.5 % (37-47); Hemoglobin 7.8 g/dL (12.0-16.0); Mean Corpuscular Hemoglobin 28.6 pg (25-34); Mean Corpuscular Hgb Conc 33.2 g/dL (32-36); Mean Corpuscular Volume 86.1 fL (80-100); Platelet Count 9 K/uL (130-400); RDW Coefficient of Variation 14.9 % (11.5-14.5); RDW Standard Deviation 46.8 fL (36.4-46.3); Red Blood Count 2.73 M/uL (4.2-5.4); White Blood Count 2.24 K/uL (4.8-10.8)
[2021-11-24 06:42] LABS: ALC (manual) 0.47 K/uL (1.2-3.4); ANC (manual) 1.66 K/uL (1.4-6.5); Giant Platelets 1+; Hypogranular Neutrophils 1+; Lymphocytes # (manual) 0.47 K/uL (1.2-3.4); Lymphocytes % (manual) 20.9 %; Monocytes # (manual) 0.12 K/uL (0.11-0.59); Monocytes % (manual) 5.2 %; Neutrophils # (manual) 1.66 K/uL (1.4-6.5); Neutrophils % (manual) 73.9 %; Platelet Estimate SIGNIFIC DECREASED (Normal)
[2021-11-24] MEDS: INSULIN HUMAN NPH SC SCH ×2 (08:08→17:03)
[2021-11-24] MEDS: dilTIAZem HCL 240 MG CAPCR PO SCH (08:10)
[2021-11-24] MEDS: PANTOprazole 40 MG TAB PO SCH (08:10)
[2021-11-24] MEDS: MAGNESIUM OXIDE 400 MG TAB PO SCH ×2 (08:10→20:37)
[2021-11-24] MEDS: LORATADINE 10 MG TAB PO SCH (08:10)
[2021-11-24] MEDS: ATORVASTATIN 20 MG TAB PO SCH (08:11)
[2021-11-24] MEDS: METOPROLOL SUCC 50MG EXT REL TAB PO SCH (08:11)
[2021-11-24] MEDS: predniSONE 5 MG TAB PO SCH (08:11)
[2021-11-24] MEDS: allopurinoL 300 MG TAB PO SCH (08:12)
[2021-11-24] MEDS: FUROSEMIDE 40 MG/4 ML VIAL IV SCH ×2 (08:13→16:56)
[2021-11-24] MEDS: ESCITALOPRAM OXALATE 10 MG TAB PO SCH (08:13)
[2021-11-24] MEDS: INSULIN ASPART PER UNIT SC SCH ×4 (08:16→20:57)
--- NOTE | 2021-11-24 09:09 | XRay Report ---
XR chest 1V portable CLINICAL HISTORY: Follow-up congestive heart failure. COMPARISON STUDY: 11/17/2021 TECHNIQUE: 1 view of the chest FINDINGS: Single frontal view of the chest demonstrates the heart to again be enlarged. Only very mild central vascular congestion remains present. There is again alveolar opacity at the right lung base with righ t pleural effusion. PA and lateral radiographs would be helpful for further evaluation. There is no d efinite evidence for left pleural effusion . There is no acute osseous pathology. IMPRESSION: 1. Only very mild residual central vascular congestion remains present. 2. There is still right pleural effusion and right lower lobe alveolar opacity, most likely represent ing atelectasis. Follow-up PA and lateral radiographs are recommended. ACT 112: Negative or not required by law. Electronically signed by: Justo Olvera M.D. 11/24/2021 9:08 AM
[2021-11-24] MEDS: POTASSIUM CHLORIDE 10 MEQ TABCR PO SCH ×2 (11:48→20:37)
--- NOTE | 2021-11-24 11:48 | Cardiology Progress Note ---
Date of Service November 24, 2021 Assessment & Plan (1) Atrial fibrillation with rapid ventricular response: (2) Edema of both legs: (3) Jaw pain: (4) SOB (shortness of breath): Plan: 1. Atrial fibrillation: Overall heart rate appears adequate currently. Some minor elevations with activity but this is to be expected. I think we can keep her on her current dose of diltiazem metoprolol. As noted previously, not a great candidate for anticoagulation given her chronic and severe thrombocytopenia. 2. HFpEF: She seems to be doing well with diuresis. She has some lower extremity edema. Lungs sound good. Perhaps we can make her diuretic regimen less aggressive. I would suggest returning to her home oral regimen of Bumex 2 mg twice daily. Can monitor it is affect and decide if a dose adjustment needs to be made. 3. Jaw pain: Improved Admission and Anticipated Discharge Date Admission Date: November 15, 2021 Subjective This morning patient claimed he feeling well. She was able to eat her entire breakfast in her jaw pain appears to be well controlled with simply Tylenol. She was able door with a walker around her room. She did not report limiting dyspnea. No significant dizziness. She continues to have lower extremity edema. Review of Systems Review of Systems: Per HPI Physical Exam Physical Exam: Constitutional: Alert, oriented, in no acute distress HEENT: Head is atraumatic and normocephalic. EOMs intact. Sclera non-icteric. Face is symmetric. No perioral cyanosis. Mucous membranes moist Pulmonary: Normal respiratory effort, clear to auscultation throughout Cardiac: Irregularly irregular, normal S1 and S2, no gallops, no rubs, no murmurs Extremities: 2+ lower extremity edema extending to the knees bilaterally. No clubbing or cyanosis. 2+ radial pulses Abdomen: Obese Skin: Normal skin color, turgor, and pigmentation. No rash or skin lesions Neurological: Oriented to person, place, and time. Insert all questions appr opriately Results & Data ([facility]) Vital Signs (Past 12 Hours) Vital Signs Temp Pulse Resp BP Pulse Ox 11/24/21 07:36 36.4 C L 81 18 146/68 H 99 11/24/21 03:22 36.5 C 88 18 108/61 96 Laboratory Results Abnormal Lab Results 06/11/22 06/11/22 06/11/22 12:03 16:09 19:52 WBC RBC Hgb Hct MCV MCH MCHC RDW Std Deviation RDW Coeff of Griffin Plt Count Neutrophils % (Manual) Lymphocytes % (Manual) Monocytes % (Manual) Neutrophils # (Manual) Total Absolute Neuts Lymphocytes # (Manual) Total Abs Lymphocytes Monocytes # (Manual) Hypogranular Neuts Platelet Estimate Giant Platelets Sodium Potassium Chloride Carbon Dioxide Anion Gap BUN Creatinine Est Cr Clr Drug Dosing Est GFR ( Amer) Est GFR (Non-Af Amer) BUN/Creatinine Ratio Glucose POC Glucose 107 H 197 H 156 H Calcium 11/24/21 11/24/21 11/24/21 03:17 05:55 05:55 WBC 2.24 L RBC 2.73 L Hgb 7.8 L Hct 23.5 L MCV 86.1 MCH 28.6 MCHC 33.2 RDW Std Deviation 46.8 H RDW Coeff of Griffin 14.9 H Plt Count 9 L* Neutrophils % (Manual) 73.9 Lymphocytes % (Manual) 20.9 Monocytes % (Manual) 5.2 Neutrophils # (Manual) 1.66 Total Absolute Neuts 1.66 Lymphocytes # (Manual) 0.47 L Total Abs Lymphocytes 0.47 L Monocytes # (Manual) 0.12 Hypogranular Neuts 1+ Platelet Estimate SIGNIFIC DECREASED Giant Platelets 1+ Sodium 135 L Potassium 3.6 Chloride 100 Carbon Dioxide 29 Anion Gap 6 BUN 40 H Creatinine 1.22 H Est Cr Clr Drug Dosing 41.1 Est GFR ( Amer) 48.8 Est GFR (Non-Af Amer) 42.1 BUN/Creatinine Ratio 32.8 H Glucose 175 H POC Glucose 99 Calcium 8.0 L 11/24/21 11/24/21 07:19 11:28 WBC RBC Hgb Hct MCV MCH MCHC RDW Std Deviation RDW Coeff of Griffin Plt Count Neutrophils % (Manual) Lymphocytes % (Manual) Monocytes % (Manual) Neutrophils # (Manual) Total Absolute Neuts Lymphocytes # (Manual) Total Abs Lymphocytes Monocytes # (Manual) Hypogranular Neuts Platelet Estimate Giant Platelets Sodium Potassium Chloride Carbon Dioxide Anion Gap BUN Creatinine Est Cr Clr Drug Dosing Est GFR ( Amer) Est GFR (Non-Af Amer) BUN/Creatinine Ratio Glucose POC Glucose 172 H 208 H Calcium PG Care Time/CCT Total # of Minutes Spent Total Time Spent with Patient: Total time spent is greater than 50% in coordination of care (as documented) at patient's floor/unit and/or counseling patient: Coding Level of Care Code 25179 Subseq Hosp Care Lvl 2 Diagnoses Atrial fibrillation with rapid ventricular response I48.91 Edema of both legs R60.0 Jaw pain R68.84 SOB (shortness of breath) R06.02
--- NOTE | 2021-11-24 12:01 | Oral/Maxillofacial Consult ---
Date of Consultation November Assessment & Plan (1) Acute facial pain: (2) Facial pain syndrome: History of Present Illness Reason for Consultation: acute left lower jaw facial pain Attending Physician: Roger Ca MD History of Present Illness I was asked by Dr Alex to see Mrs. Skaggs regarding possible dental/TMJ pain left side. I had the opportunity to evaluate Carmen at her bedside on November 21. The onset of the symptoms started a few days prior to this admission. While eating she felt pain in the left jaw, that has not improved. never associated with swelling or dental symptoms--no hot/cold sensations, no percussion The pain is present all the time--not well localized, referred to TMJ, cheek, angle of the jaw and submandibular area. The mucobuccal fold is tender as well. There is no redness, swelling or pain associated with the teeth present at that side. CT scan does not show any dental problems on the the lower left. In an attempt to localize the pain I did the following Palpation of the parotid gland--not tender -no pain no drainage, no infection, no blockage, no swelling Examination of Left TMJ-- no pain on direct pressure or palpation over the joint or ear canal Teeth--the teeth in the area were percussed and demonstrated no response to percussion, pressure Gingival tissue- no swelling, infection, bleeding, teeth very stable good bony support Floor of mouth and other oral structures---all with in normal limits. Of interest the pain appears to be associated with palpation of the mental nerve area when I palpate in the mucobuccal fold below the premolar teeth left side. As a result of the pain Juli has a limited opening to avoid stimulation and increase in facial pain. I did review the CT scan-- except for a few carious lesion nothing can explain the pain symptoms, # 13 carious lesion but referred pain to a lower area would be very unlikely. Given the acuteness of the pain, sudden onset, no dental etiology--I have to consider a neurogenic cause to the pain. This could represent atypical facial pain or a variation of Trigeminal Neuralgia this seems to be a trigger zone but pain is constant and is present at night. I suggest adding a narcotic analgesic at least for a few days to help with pain control. Heat and massage if this is muscle related. PLAN My working diagnosis at present is either a muscle or neurologic cause. I will see Carmen ThursdayNovember 25 and consider giving her a diagnostic block with local anesthesia in the hopes of at least localizing the pain. If this indeed is looking like a necrological issue consideration to treatment with Tegratol ( Carbamazepine ) or Gabapentin can be considered. Allergies Allergy/AdvReac Type Severity Reaction Status Date / Time hydrocodone Allergy Mild UNKNOWN Verified 11/15/21 15:36 "HAPPENED LONG TIME AGO" phenol Allergy Mild LOCALIZED Verified 11/15/21 15:36 RASH AT INJECTION SITE protamine Allergy Mild LOCALIZED Verified 11/15/21 15:36 RASH AT INJECTION SITE sodium phosphate Allergy Mild LOCALIZED Verified 11/15/21 15:36 RASH AT INJECTION SITE zinc Allergy Mild LOCALIZED Verified 11/15/21 15:36 RASH AT INJECTION SITE hydroxychloroquine AdvReac Mild "BURPED Verified 11/15/21 15:36 FOR DAYS AND TORE MY STOMACH UP" Home Medications Medication Instructions Recorded Confirmed Type allopurinol 300 mg tablet 300 mg PO DAILY 10/15/21 11/15/21 History bumetanide 1 mg tablet 2 mg PO BID 10/15/21 11/15/21 History diltiazem HCl 240 mg 240 mg PO DAILY 10/15/21 11/15/21 History capsule,extended release 24 hr escitalopram oxalate 10 mg tablet 10 mg PO DAILY 10/15/21 11/15/21 History loratadine 10 mg tablet 10 mg PO DAILY 10/15/21 11/15/21 History prednisone 5 mg tablet 5 mg PO DAILY 10/15/21 11/15/21 History rabeprazole 20 mg tablet,delayed 20 mg PO DAILY 10/15/21 11/15/21 History release (AcipHex) tramadol 50 mg tablet 50 mg PO Q6H PRN 10/15/21 11/15/21 History insulin aspar prot-insulin aspart See Rx Instructions .ROUTE .COMPLEX 10/17/21 11/15/21 History 100 unit/mL (70-30) subcutaneous pen (Novolog Mix 70-30FlexPen U-100) metoprolol tartrate 25 mg tablet 25 mg PO QAM #30 tab 10/20/21 11/15/21 Rx atorvastatin 20 mg tablet 20 mg PO DAILY 11/15/21 11/15/21 History Patient History Medical History A-fib Acute hyperkalemia Acute hypokalemia Bradycardia CKD (chronic kidney disease), stage III Diabetes Elevated troponin I level GI bleed Hx of pneumococcal pneumonia Hypertension Hypomagnesemia Insulin dependent diabetes mellitus Malignant neoplasm of central portion of female breast (10/01/11) "Left breast pain Finding of a left breast mass Status post biopsy revealing infiltrating ductal carcinoma Status post partial mastectomy and sentinel lymph node biopsy Pathologic stage [id number] Estrogen receptor positive, progesterone receptor positive, HER-2/abelardo negative Status post completion of radiation therapy 04/08/2012 received 6120 cGy" Myelodysplastic syndrome with 5 q minus Surgical History History of hysterectomy History of lumpectomy Hx of cholecystectomy Family History Other Cancer Diabetes Social History Smoking Status: Never smoker Hx Alcohol Use: No Hx Substance Use: No Preferred Language: [place] Communication Ability: Effective 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[employer]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: No Beliefs That Will Affect Care: None marital status: / Current Living Situation: Alone How many Children do You have: 3 Feels Safe at Home: Yes Assistive Devices: Walker Results & Data ([facility]) Vital Signs (Past 12 Hours) Vital Signs Temp Pulse Resp BP Pulse Ox 11/24/21 11:45 36.9 C 100 H 20 122/76 97 11/24/21 07:36 36.4 C L 81 18 146/68 H 99 11/24/21 03:22 36.5 C 88 18 108/61 96 PG Care Time/CCT Total # of Minutes Spent Total Time Spent with Patient: Total time spent is greater than 50% in coordination of care (as documented) at patient's floor/unit and/or counseling patient: Coding Level of Care Code 23536 Initial Inpt Care Lvl 3 Diagnoses Acute facial pain R51.9 Facial pain syndrome G50.0
--- NOTE | 2021-11-24 16:31 | Hospitalist Progress Note ---
Date of Service November 24, 2021 Assessment & Plan (1) Pain in lower jaw: Plan: Left mandibular pain/TMJ Pain Likely due to vascular or neurogenic cause DD: Atypical facial pain or radiation of trigeminal neuralgia. --Face CT:There is no evidence of facial bone fracture.Numerous dental caries as above as well as a large periapical lucency involving the right maxillary canine. Follow-up with dentistry is recommended. There is no evidence of overly ing cellulitis or periodontal abscess. --CT Head:No acute intracranial abnormality. Pain control Avoid NSAIDs due to low platelets Appreciate Oromaxillary facial surgery Input Plan for diagnostic block with local anesthesia tomorrow May need to be started on carbamazepine or gabapentin based on further testing. (2) Acute on chronic diastolic (congestive) heart failure: Plan: CXR: Cardiomegaly with pulmonary edema. Moderate size right pleural effusion with right basilar consolidation, progressed from the prior study. Last Echo on 11/11/2021: EF: 60-65%, mild concentric LVH, aortic valve sclerosis without stenosis, mild AR, mild to moderate MR, moderate TR Monitor I's and O's, daily weight, renal function and lites Appreciate cardiology input Saturating well on room air Transition to p.o. 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 Dr. Barrientos (6) Demand ischemia: Plan: Likely demand ischemia per cardiology (7) Hypomagnesemia: Plan: Replace as needed (8) CKD (chronic kidney disease), stage III: Plan: chronic, at baseline. Monitor renal function (9) Insulin dependent diabetes mellitus: Plan: Most recent A1c: 7.2 on 10/2021 Pharmacy on board for glycemic management. Continue NPH and novolog sliding scale Continue monitor BS (10) Rheumatoid arthritis: Plan: On Chronic prednisone (11) Chronic steroid use: Plan: Continue prednisone (12) Lumbar spinal stenosis: Plan: Chronic Back pain, no report today of new issues. Continue tramadol prn (13) Gout: Plan: Continue allopurinol (14) DVT prophylaxis: Plan: SCDs Re: Pancytopenia Code Status Full Code Admission and Anticipated Discharge Date Admission Date: November 15, 2021 Subjective Patient is seen and examined at bedside States having a tongue bite this morning Jaw pain is better but slightly worse with eating Reports dyspnea on exertion, feels tired No other complaints Denies any chest pain, dizziness, nausea, vomiting Review of Systems Review of Systems: All systems reviewed & are unremarkable except as noted in Subjective Physical Exam Physical Exam: Physical Exam: Vitals signs as noted above General Appearance:Morbidly Obese, no apparent distress Head: normocephalic, Atraumatic Eyes: normal inspection, EOMI Neck: supple, Trachea midline Respiratory/Chest: Normal breath sounds, CTA, No accessory muscle use Cardiovascular: Irregularly irregular, No murmur Abdomen/GI:Soft, Non tender, Bowel sounds present Extremities/Musculoskeletal:normal inspection, 2+ B/L LE edema Neurologic/Psych:AAOX3, grossly no focal neurological deficits Skin: normal color, warm Results & Data Results & Data ([facility]) Vital Signs (Past 12 Hours) Vital Signs Temp Pulse Pulse Resp BP BP Pulse Ox 11/24/21 16:24 36.4 C L 100 H 20 116/87 95 11/24/21 15:43 36.8 C 84 18 108/65 98 11/24/21 15:18 36.8 C 84 18 108/65 98 11/24/21 14:48 36.6 C 99 H 16 107/51 L 97 11/24/21 14:43 36.6 C 99 H 16 107/51 L 97 11/24/21 14:33 36.5 C 97 H 16 104/63 98 11/24/21 14:19 36.5 C 92 H 124/72 11/24/21 14:14 36.5 C 97 H 18 124/72 96 11/24/21 12:49 91 H 11/24/21 11:45 36.9 C 100 H 20 122/76 97 11/24/21 07:36 36.4 C L 81 18 146/68 H 99 Laboratory Results Short CBC 11/24/21 Range/Units 05:55 WBC 2.24 L (4.8-10.8) K/uL Hgb 7.8 L (12.0-16.0) g/dL Hct 23.5 L (37-47) % Plt Count 9 L* (130-400) K/uL [facility] 11/24/21 05:55 Sodium 135 L Potassium 3.6 Chloride 100 Carbon Dioxide 29 BUN 40 H Creatinine 1.22 H Glucose 175 H Calcium 8.0 L
[2021-11-24] MEDS: DOCUSATE SODIUM 100 MG CAP PO SCH (20:37)
[2021-11-25] MEDS: ACETAMINOPHEN 500 MG TAB PO SCH ×3 (01:06→17:19)
[2021-11-25 06:37] LABS: Hematocrit (blood only) 21.8 % (37-47); Hemoglobin 7.2 g/dL (12.0-16.0); Mean Corpuscular Hemoglobin 28.8 pg (25-34); Mean Corpuscular Volume 87.2 fL (80-100); Platelet Count 11 K/uL (130-400); RDW Coefficient of Variation 14.6 % (11.5-14.5); RDW Standard Deviation 46.7 fL (36.4-46.3); White Blood Count 1.63 K/uL (4.8-10.8)
[2021-11-25 06:38] LABS: ALC (manual) 0.57 K/uL (1.2-3.4); ANC (manual) 1.01 K/uL (1.4-6.5); Basophils # (manual) 0.01 K/uL (0-0.2); Basophils % (manual) 0.9 %; Giant Platelets 3+; Lymphocytes # (manual) 0.57 K/uL (1.2-3.4); Lymphocytes % (manual) 34.8 %; Monocytes # (manual) 0.04 K/uL (0.11-0.59); Monocytes % (manual) 2.6 %; Neutrophils # (manual) 1.01 K/uL (1.4-6.5); Neutrophils % (manual) 61.7 %; Platelet Estimate SIGNIFIC DECREASED (Normal)
[2021-11-25 06:39] LABS: BUN Creatinine Ratio 29.2 (10-20); Creatinine Clr Calc Pharmacy 38.7 ml/min; Est GFR (African American) 45.2 ml/min; Potassium 3.4 mmol/L (3.5-5.1)
[2021-11-25] MEDS ORDERED: SODIUM CHLORIDE 0.9% 250 ML IV PRN (08:17)
[2021-11-25] MEDS ORDERED: POTASSIUM CHLORIDE CRTAB 20 MEQ TABCR PO ONE (08:26)
[2021-11-25] MEDS: INSULIN ASPART PER UNIT SC SCH ×4 (08:31→21:17)
[2021-11-25] MEDS: INSULIN HUMAN NPH SC SCH (08:32)
[2021-11-25] MEDS: BUMETANIDE 1 MG TAB PO SCH ×2 (08:34→17:19)
[2021-11-25] MEDS: MAGNESIUM OXIDE 400 MG TAB PO SCH ×2 (08:34→21:16)
[2021-11-25] MEDS: POTASSIUM CHLORIDE 10 MEQ TABCR PO SCH ×2 (08:34→21:16)
[2021-11-25] MEDS: allopurinoL 300 MG TAB PO SCH (08:34)
[2021-11-25] MEDS: predniSONE 5 MG TAB PO SCH (08:34)
[2021-11-25] MEDS: ESCITALOPRAM OXALATE 10 MG TAB PO SCH (08:35)
[2021-11-25] MEDS: METOPROLOL SUCC 50MG EXT REL TAB PO SCH (08:35)
[2021-11-25] MEDS: PANTOprazole 40 MG TAB PO SCH (08:35)
[2021-11-25] MEDS: ATORVASTATIN 20 MG TAB PO SCH (08:35)
[2021-11-25] MEDS: dilTIAZem HCL 240 MG CAPCR PO SCH (08:35)
[2021-11-25] MEDS: LORATADINE 10 MG TAB PO SCH (08:35)
[2021-11-25] MEDS ORDERED: BUMETANIDE 1 MG TAB PO SCH (09:00)
[2021-11-25] MEDS ORDERED: FUROSEMIDE INJ 20 MG/2 ML VIAL IV SCH (11:59)
--- NOTE | 2021-11-25 12:40 | Oral/Maxillofacial Progress Nt ---
Date of Service November 25, 2021 Assessment & Plan Admission and Anticipated Discharge Date Admission Date: November 15, 2021 Subjective UPDATE FINDINGS Over the last few days the pain has decreased dramatically. Her oral opening has improved and she was able to now put together a better pictures f the events. Her pain and muscle stiffness started after eating hard nuts. ce she was finished eating the nuts w/in a few hours her jaw began to hurt and her muscles stiffened up. Today the pain is localized to the left ear and TMJ area directly over the left condyle. She still has some discomfort upon chewing and lateral jaw movement. 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 All the signs and symptoms point to this diagnosis Eating nuts, localized to ear/TMJ are and improvement over time by being on a soft dies. I did suggest she avoid eating hard foods If this does reoccur --heat and soft diet should allow improvement w/in a few days The CT scan did not show any abnormalities associated with the TMJ Hopefully this is a self limiting issues that requires no treatment other then diet changes and avoidance of hard foods. Oc Hernadez Results & Data ([facility]) Vital Signs (Past 12 Hours) Vital Signs Temp Pulse Pulse Resp BP BP Pulse Ox 11/25/21 11:34 36.5 C 113 H 18 128/73 97 11/25/21 11:25 36.3 C L 112 H 20 123/83 98 11/25/21 10:55 36.4 C L 100 H 18 117/74 97 11/25/21 10:40 36.4 C L 97 H 18 112/70 97 11/25/21 10:25 36.4 C L 91 H 18 109/74 96 11/25/21 10:03 36.4 C L 97 H 18 108/73 97 11/25/21 08:15 36.5 C 113 H 18 128/73 97 11/25/21 03:38 36.5 C 84 18 112/69 98 11/25/21 00:48 86 PG Care Time/CCT Total # of Minutes Spent Total Time Spent with Patient: Total time spent is greater than 50% in coordination of care (as documented) at patient's floor/unit and/or counseling patient: Coding Level of Care Code 27300 Subseq Hosp Care Lvl 1
--- NOTE | 2021-11-25 13:49 | Pharmacy Report ---
Pharmacy Glycemic Short Note 2 - Date of Service November 25, 2021 - Glycemic Short BSG Results (Last 24 hours): 11/24/21 11/24/21 11/25/21 16:15 20:33 05:32 Glucose 84 POC Glucose 121 H 103 H 11/25/21 11/25/21 07:14 11:44 Glucose POC Glucose 106 H 132 H OUTPATIENT ANTIDIABETIC REGIMEN: * Novolog Mix 70/30 35 units SQ QAM; 28 units SQ with dinner ASSESSMENT: 11/25/21 * Patient's BSGs yesterday were [phone] mg/dL. Patient received 71 units of insulin (40 units of basal and 31 units of bolus). * Patient received a platelet transfusion yesterday. * Patient's BSGs today are 106-132 mg/dL. * Since fasting BSG is trending downwards, will reduce evening NPH dose by 10% to 17 units. Continue Novolog. Lunch BSG of 208 mg/dL is out of trend for patient. 11/23 * Blood sugars at goal - HS BSG on lower end, 85mg/dl, this is due to RN giving the wrong CR at lunch and dinner yesterday - reviewed with RN to give proper CF/CR based on time on AUG * No changes in insulin regimen needed at this time 11/21 * Carmen received 73 units of insulin yesterday (45 units NPH + 28 units novolog) with adequate BSG control (101, 165, 130, 159 mg/dl) * Fasting BSG is acceptable. Lunch BSG is below goal. Will decrease morning dose of NPH and loosen carb coverage with breakfast. 11/20 * Patient received total of 97 units of insulin yesterday, of which 50 units were NPH * BSGs elevated yesterday due to increase in steroids, NPH dose had been increased b/c of that - BSGs now trending down this morning * Fasting BSG 116 mg/dL - continues on usual prednisone dose today of 5 mg daily, will keep higher NPH dose for this AM, but will go back to prior dose of 20 units for dinner time since no extra doses of steroids given today 11/16 * 81 y/o F admitted for A Fib. Patient with history of Type 2 diabetes managed at home on Novolog mix insulin BID. * Patient was admitted here last month. At that time she was ordered NPH insulin for basal coverage and Novolog bolus. Continued the same. * She received 20 units of NPH last night. Fasting BSG this AM was 87 mg/dl. * NPH 20 units ordered this AM (slightly reduced from 30 units that she was on during recent admission). Continued with 20 units at dinner. * Novolog parameters based on stress of 2. PLAN FOR INPATIENT GLYCEMIC CONTROL: * Basal insulin * NPH 20 units QAM * NPH 17 units daily with dinner * Bolus insulin * NovoLog per scale ACHS or Q6hrs while NPO * Goal Range: Low 110 mg/dL - High 140 mg/dL * Correction Factor: 25 mg/dL/unit (CF 20 with breakfast) * Nutritional / Prandial insulin per carb ratio of 1 unit per 7 grams CHO consumed (CR 6 with breakfast)
--- NOTE | 2021-11-25 17:37 | Hospitalist Progress Note ---
Date of Service November 25, 2021 Assessment & Plan (1) Pain in lower jaw: Plan: Left mandibular pain/TMJ Pain Likely due to myofascial TMJ pain secondary to eating hard foods --Face CT:There is no evidence of facial bone fracture.Numerous dental caries as above as well as a large periapical lucency involving the right maxillary canine. Follow-up with dentistry is recommended. There is no evidence of overlying cellulitis or periodontal abscess. --CT Head:No acute intracranial abnormality. Pain control Avoid NSAIDs due to low platelets Appreciate Oromaxillary facial surgery Input Improved with Pain meds, avoid hard foods (2) Acute on chronic diastolic (congestive) heart failure: Plan: CXR: Cardiomegaly with pulmonary edema. Moderate size right pleural effusion with right basilar consolidation, progressed from the prior study. Last Echo on 11/11/2021: EF: 60-65%, mild concentric LVH, aortic valve sclerosis without stenosis, mild AR, mild to moderate MR, moderate TR Monitor I's and O's, daily weight, renal function and lites Appreciate cardiology input Saturating well on room air Continue Bumex 2 mg twice daily Needs follow-up with cardiology upon discharge (3) Atrial fibrillation with rapid ventricular response: Plan: Afib with RVR Suspected noncompliance with home medications Initially on Cardizem drip Continue Cardizem, metoprolol Appreciate cardiology input Currently not on anticoagulation Hypokalemia Replace as needed (4) Pancytopenia: Plan: Acquired pancytopenia due to MDS Chronic, transfusion dependent No acute bleeding issues S/P 1 unit PRBC, 3 units of platelets Monitor CBC Transfuse as needed Hb 7.2 today Will transfuse 1 Unit PRBC today May need Neupogen. Will discuss with Dr. 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 Dr. Barrientos (6) Demand ischemia: Plan: Likely demand ischemia per cardiology (7) Hypomagnesemia: Plan: Replace as needed (8) CKD (chronic kidney disease), stage III: Plan: chronic, at baseline. Monitor renal function (9) Insulin dependent diabetes mellitus: Plan: Most recent A1c: 7.2 on 10/2021 Pharmacy on board for glycemic management. Continue NPH and novolog sliding scale Continue monitor BS (10) Rheumatoid arthritis: Plan: On Chronic prednisone (11) Chronic steroid use: Plan: Continue prednisone (12) Lumbar spinal stenosis: Plan: Chronic Back pain, no report today of new issues. Continue tramadol prn (13) Gout: Plan: Continue allopurinol (14) DVT prophylaxis: Plan: SCDs Re: Pancytopenia Code Status Full Code Admission and Anticipated Discharge Date Admission Date: November 15, 2021 Subjective Patient is seen and examined at bedside Lethargic and sleepy this morning States having poor sleep overnight No other complaints Denies any chest pain, dyspnea, dizziness, nausea, vomiting Review of Systems Review of Systems: All systems reviewed & are unremarkable except as noted in Subjective Physical Exam Physical Exam: Physical Exam: Vitals signs as noted above General Appearance:Morbidly Obese, no apparent distress Head: normocephalic, Atraumatic Eyes: normal inspection, EOMI Neck: supple, Trachea midline Respiratory/Chest: Normal breath sounds, CTA, No accessory muscle use Cardiovascular: Irregularly irregular, No murmur Abdomen/GI:Soft, Non tender, Bowel sounds present Extremities/Musculoskeletal:normal inspection, 2+ B/L LE edema Neurologic/Psych:AAOX3, grossly no focal neurological deficits Skin: normal color, warm Results & Data Results & Data ([facility]) Vital Signs (Past 12 Hours) Vital Signs Temp Pulse Pulse Resp BP BP Pulse Ox 11/25/21 15:16 36.6 C 93 H 20 103/62 96 11/25/21 13:01 36.3 C L 103 H 18 98/53 L 97 11/25/21 12:25 36.3 C L 99 H 20 117/72 98 11/25/21 11:34 36.5 C 113 H 18 128/73 97 11/25/21 11:25 36.3 C L 112 H 20 123/83 98 11/25/21 10:55 36.4 C L 100 H 18 117/74 97 11/25/21 10:40 36.4 C L 97 H 18 112/70 97 11/25/21 10:25 36.4 C L 91 H 18 109/74 96 11/25/21 10:03 36.4 C L 97 H 18 108/73 97 11/25/21 08:15 36.5 C 113 H 18 128/73 97 Laboratory Results Short CBC 11/25/21 Range/Units 05:32 WBC 1.63 L (4.8-10.8) K/uL Hgb 7.2 L (12.0-16.0) g/dL Hct 21.8 L (37-47) % Plt Count 11 L* (130-400) K/uL [facility] 11/25/21 05:32 Sodium 136 Potassium 3.4 L Chloride 101 Carbon Dioxide 30 BUN 38 H Creatinine 1.30 H Glucose 84 Calcium 8.0 L
[2021-11-25] MEDS ORDERED: INSULIN HUMAN NPH SC SCH (18:00)
[2021-11-25] MEDS: NYSTATIN OINT 15 GM TUBE EXT SCH (21:04)
[2021-11-25] MEDS: DOCUSATE SODIUM 100 MG CAP PO SCH (21:13)
[2021-11-25] MEDS: BENZOCAINE 20% (ORAJEL) 11.9 GM TUBE MT PRN (22:00)
[2021-11-26] MEDS: ACETAMINOPHEN 500 MG TAB PO SCH ×3 (00:38→17:14)
[2021-11-26 06:35] LABS: BUN Creatinine Ratio 26.9 (10-20); Calcium 8.2 mg/dl (8.5-10.1); Creatinine Clr Calc Pharmacy 37.9 ml/min; Est GFR (African American) 43.6 ml/min; Est GFR (Non-African American) 37.6 ml/min; Magnesium 1.9 mg/dl (1.7-2.4); Potassium 3.8 mmol/L (3.5-5.1)
[2021-11-26 06:40] LABS: Hematocrit (blood only) 25.1 % (37-47); Hemoglobin 8.3 g/dL (12.0-16.0); Mean Corpuscular Hemoglobin 28.1 pg (25-34); Mean Corpuscular Hgb Conc 33.1 g/dL (32-36); Mean Corpuscular Volume 85.1 fL (80-100); Platelet Count 16 K/uL (130-400); RDW Coefficient of Variation 14.9 % (11.5-14.5); RDW Standard Deviation 46.9 fL (36.4-46.3); Red Blood Count 2.95 M/uL (4.2-5.4); White Blood Count 1.96 K/uL (4.8-10.8)
[2021-11-26 06:41] LABS: Platelet Estimate SIGNIFIC DECREASED (Normal)
[2021-11-26] MEDS: ATORVASTATIN 20 MG TAB PO SCH (09:13)
[2021-11-26] MEDS: MAGNESIUM OXIDE 400 MG TAB PO SCH ×2 (09:13→20:18)
[2021-11-26] MEDS: ESCITALOPRAM OXALATE 10 MG TAB PO SCH (09:13)
[2021-11-26] MEDS: LORATADINE 10 MG TAB PO SCH (09:13)
[2021-11-26] MEDS: predniSONE 5 MG TAB PO SCH (09:13)
[2021-11-26] MEDS: dilTIAZem HCL 240 MG CAPCR PO SCH (09:13)
[2021-11-26] MEDS: METOPROLOL SUCC 50MG EXT REL TAB PO SCH (09:13)
[2021-11-26] MEDS: BUMETANIDE 1 MG TAB PO SCH ×2 (09:13→17:14)
[2021-11-26] MEDS: PANTOprazole 40 MG TAB PO SCH (09:13)
[2021-11-26] MEDS: POTASSIUM CHLORIDE 10 MEQ TABCR PO SCH ×2 (09:13→20:19)
[2021-11-26] MEDS: allopurinoL 300 MG TAB PO SCH (09:13)
[2021-11-26] MEDS: NYSTATIN OINT 15 GM TUBE EXT SCH ×3 (09:14→23:47)
[2021-11-26] MEDS: INSULIN ASPART PER UNIT SC SCH ×4 (09:17→20:19)
[2021-11-26] MEDS: INSULIN HUMAN NPH SC SCH (09:18)
[2021-11-26] MEDS ORDERED: NYSTATIN POWDER 15GM BTL EXT PRN (10:14)
[2021-11-26] MEDS ORDERED: EPOETIN ALFA 40,000 UNITS/ML VIAL SQ ONE (10:15)
[2021-11-26] MEDS: CLOTRIMAZOLE 1% CR 15 GM TUBE EXT SCH ×2 (12:38→20:19)
--- NOTE | 2021-11-26 17:23 | Hospitalist Progress Note ---
Date of Service November 26, 2021 Assessment & Plan (1) Pain in lower jaw: Plan: Left mandibular pain/TMJ Pain Likely due to myofascial TMJ pain secondary to eating hard foods --Face CT:There is no evidence of facial bone fracture.Numerous dental caries as above as well as a large periapical lucency involving the right maxillary canine. Follow-up with dentistry is recommended. There is no evidence of overlying cellulitis or periodontal abscess. --CT Head:No acute intracranial abnormality. Pain control Avoid NSAIDs due to low platelets Appreciate Oromaxillary facial surgery Input Improved with Pain meds, avoid hard foods (2) Acute on chronic diastolic (congestive) heart failure: Plan: CXR: Cardiomegaly with pulmonary edema. Moderate size right pleural effusion with right basilar consolidation, progressed from the prior study. Last Echo on 11/11/2021: EF: 60-65%, mild concentric LVH, aortic valve sclerosis without stenosis, mild AR, mild to moderate MR, moderate TR Monitor I's and O's, daily weight, renal function and lites Appreciate cardiology input Saturating well on room air Continue Bumex 2 mg twice daily Needs follow-up with cardiology upon discharge (3) Atrial fibrillation with rapid ventricular response: Plan: Afib with RVR Suspected noncompliance with home medications Initially on Cardizem drip Continue Cardizem, metoprolol Appreciate cardiology input Currently not on anticoagulation Hypokalemia Replace as needed Erythematous rash R breast fold Likely Intertrigo ? Fungal rash Will start on Clotrimazole Try to keep area dry (4) Pancytopenia: Plan: Acquired pancytopenia due to MDS Chronic, transfusion dependent No acute bleeding issues S/P 2 unit PRBC, 3 units of platelets Monitor CBC Transfuse as needed Hb 8.3 today No Neupogen given no infection as per Dr. Barrientos Will give erythropoietin as suggested by hematology. (5) MDS (myelodysplastic syndrome): Plan: chronic Follows with outpatient forest logistics manager. Dr. Barrientos (6) Demand ischemia: Plan: Likely demand ischemia per cardiology (7) Hypomagnesemia: Plan: Replace as needed (8) CKD (chronic kidney disease), stage III: Plan: chronic, at baseline. Monitor renal function (9) Insulin dependent diabetes mellitus: Plan: Most recent A1c: 7.2 on 10/2021 Pharmacy on board for glycemic management. Continue NPH and novolog sliding scale Continue monitor BS (10) Rheumatoid arthritis: Plan: On Chronic prednisone (11) Chronic steroid use: Plan: Continue prednisone (12) Lumbar spinal stenosis: Plan: Chronic Back pain, no report today of new issues. Continue tramadol prn (13) Gout: Plan: Continue allopurinol (14) DVT prophylaxis: Plan: SCDs Re: Pancytopenia Code Status Full Code Admission and Anticipated Discharge Date Admission Date: November 15, 2021 Subjective Patient is seen and examined at bedside States having itchy erythematous rash under right breast fold More alert, awake today Discussed with Hematology today Denies any chest pain, dyspnea, dizziness, nausea, vomiting Review of Systems Review of Systems: All systems reviewed & are unremarkable except as noted in Subjective Physical Exam Physical Exam: Physical Exam: Vitals signs as noted above General Appearance:Morbidly Obese, no apparent distress Head: normocephalic, Atraumatic Eyes: normal inspection, EOMI Neck: supple, Trachea midline Respiratory/Chest: Normal breath sounds, CTA, No accessory muscle use Cardiovascular: Irregularly irregular, No murmur Abdomen/GI:Soft, Non tender, Bowel sounds present Extremities/Musculoskeletal:normal inspection, 2+ B/L LE edema Neurologic/Psych:AAOX3, grossly no focal neurological deficits Skin: normal color, warm Results & Data Results & Data ([facility]) Vital Signs (Past 12 Hours) Vital Signs Temp Pulse Resp BP Pulse Ox 11/26/21 15:51 36.9 C 95 H 17 119/79 98 11/26/21 11:30 36.4 C L 97 H 17 119/67 97 11/26/21 07:30 36.3 C L 92 H 18 113/67 95 Laboratory Results Short CBC 11/26/21 Range/Units 05:32 WBC 1.96 L (4.8-10.8) K/uL Hgb 8.3 L (12.0-16.0) g/dL Hct 25.1 L (37-47) % Plt Count 16 L* (130-400) K/uL BMP 11/26/21 05:32 Sodium 137 Potassium 3.8 Chloride 102 Carbon Dioxide 28 BUN 36 H Creatinine 1.34 H Glucose 78 Calcium 8.2 L
[2021-11-26] MEDS ORDERED: INSULIN HUMAN NPH SC SCH (18:00)
[2021-11-26] MEDS: DOCUSATE SODIUM 100 MG CAP PO SCH (20:19)
[2021-11-27] MEDS: ACETAMINOPHEN 500 MG TAB PO SCH ×2 (00:02→08:47)
[2021-11-27] MEDS: BENZOCAINE 20% (ORAJEL) 11.9 GM TUBE MT PRN (00:33)
[2021-11-27 07:29] LABS: Hematocrit (blood only) 23.2 % (37-47); Hemoglobin 7.6 g/dL (12.0-16.0); Mean Corpuscular Hemoglobin 28.7 pg (25-34); Mean Corpuscular Hgb Conc 32.8 g/dL (32-36); Mean Corpuscular Volume 87.5 fL (80-100); Platelet Count 15 K/uL (130-400); RDW Coefficient of Variation 14.9 % (11.5-14.5); RDW Standard Deviation 46.9 fL (36.4-46.3); Red Blood Count 2.65 M/uL (4.2-5.4); White Blood Count 2.12 K/uL (4.8-10.8)
[2021-11-27 07:30] LABS: Platelet Estimate SIGNIFIC DECREASED (Normal)
[2021-11-27] MEDS ORDERED: INSULIN HUMAN NPH SC SCH (07:30)
[2021-11-27 07:37] LABS: Est GFR (African American) 43.6 ml/min; Est GFR (Non-African American) 37.6 ml/min; Potassium 3.9 mmol/L (3.5-5.1)
[2021-11-27 07:38] LABS: BUN Creatinine Ratio 26.1 (10-20); Calcium 8.1 mg/dl (8.5-10.1); Creatinine Clr Calc Pharmacy 37.9 ml/min
[2021-11-27] MEDS: predniSONE 5 MG TAB PO SCH (08:45)
[2021-11-27] MEDS: PANTOprazole 40 MG TAB PO SCH (08:45)
[2021-11-27] MEDS: MAGNESIUM OXIDE 400 MG TAB PO SCH (08:45)
[2021-11-27] MEDS: NYSTATIN OINT 15 GM TUBE EXT SCH ×2 (08:45→16:17)
[2021-11-27] MEDS: ATORVASTATIN 20 MG TAB PO SCH (08:45)
[2021-11-27] MEDS: dilTIAZem HCL 240 MG CAPCR PO SCH (08:45)
[2021-11-27] MEDS: METOPROLOL SUCC 50MG EXT REL TAB PO SCH (08:46)
[2021-11-27] MEDS: allopurinoL 300 MG TAB PO SCH (08:46)
[2021-11-27] MEDS: BUMETANIDE 1 MG TAB PO SCH (08:46)
[2021-11-27] MEDS: LORATADINE 10 MG TAB PO SCH (08:46)
[2021-11-27] MEDS: ESCITALOPRAM OXALATE 10 MG TAB PO SCH (08:46)
[2021-11-27] MEDS: CLOTRIMAZOLE 1% CR 15 GM TUBE EXT SCH (08:46)
[2021-11-27] MEDS: POTASSIUM CHLORIDE 10 MEQ TABCR PO SCH (08:47)
[2021-11-27] MEDS: INSULIN ASPART PER UNIT SC SCH ×2 (08:48→12:30)
--- NOTE | 2021-11-27 12:13 | Pharmacy Report ---
Pharmacy Glycemic Short Note 2 - Date of Service November 27, 2021 - Glycemic Short BSG Results (Last 24 hours): 11/26/21 11/26/21 11/27/21 16:27 20:05 02:12 Glucose POC Glucose 172 H 90 84 11/27/21 11/27/21 11/27/21 06:36 07:14 11:08 Glucose 134 H POC Glucose 140 H 184 H OUTPATIENT ANTIDIABETIC REGIMEN: * Novolog Mix 70/30 35 units SQ QAM; 28 units SQ with dinner ASSESSMENT: 11/27/21 * Patient's BSGs yesterday were [phone] mg/dL. Today's BSGs are 140-184 mg/dL. * Yesterday, basal insulin in afternoon was decreased from 17 to 15 units. (total daily dose of 35 units of basal). * Patient received 66 units of insulin (35 units of basal and 31 units of bolus). * BSGs trend upwards throughout the day. Will increase basal insulin in AM by 10% for the following dose: 22 units AM + 15 units PM * Tighten CR slightly. Loosen CF to prevent stacking. 11/25/21 * Patient's BSGs yesterday were [phone] mg/dL. Patient received 71 units of insulin (40 units of basal and 31 units of bolus). * Patient received a platelet transfusion yesterday. * Patient's BSGs today are 106-132 mg/dL. * Since fasting BSG is trending downwards, will reduce evening NPH dose by 10% to 17 units. Continue Novolog. Lunch BSG of 208 mg/dL is out of trend for patient. 11/23 * Blood sugars at goal - HS BSG on lower end, 85mg/dl, this is due to RN giving the wrong CR at lunch and dinner yesterday - reviewed with RN to give proper CF/CR based on time on AUG * No changes in insulin regimen needed at this time 11/21 * Carmen received 73 units of insulin yesterday (45 units NPH + 28 units novolog) with adequate BSG control (101, 165, 130, 159 mg/dl) * Fasting BSG is acceptable. Lunch BSG is below goal. Will decrease morning dose of NPH and loosen carb coverage with breakfast. 11/20 * Patient received total of 97 units of insulin yesterday, of which 50 units were NPH * BSGs elevated yesterday due to increase in steroids, NPH dose had been increased b/c of that - BSGs now trending down this morning * Fasting BSG 116 mg/dL - continues on usual prednisone dose today of 5 mg daily, will keep higher NPH dose for this AM, but will go back to prior dose of 20 units for dinner time since no extra doses of steroids given today 11/16 * 81 y/o F admitted for A Fib. Patient with history of Type 2 diabetes managed at home on Novolog mix insulin BID. * Patient was admitted here last month. At that time she was ordered NPH insulin for basal coverage and Novolog bolus. Continued the same. * She received 20 units of NPH last night. Fasting BSG this AM was 87 mg/dl. * NPH 20 units ordered this AM (slightly reduced from 30 units that she was on during recent admission). Continued with 20 units at dinner. * Novolog parameters based on stress of 2. PLAN FOR INPATIENT GLYCEMIC CONTROL: * Basal insulin * NPH 22 units QAM * NPH 15 units daily with dinner * Bolus insulin * NovoLog per scale ACHS or Q6hrs while NPO * Goal Range: Low 110 mg/dL - High 140 mg/dL * Correction Factor: 25 mg/dL/unit * Nutritional / Prandial insulin per carb ratio of 1 unit per 5 grams CHO consumed
--- NOTE | 2021-11-27 12:36 | Hospitalist Progress Note ---
Date of Service November 27, 2021 Assessment & Plan (1) Pain in lower jaw: Plan: Left mandibular pain/TMJ Pain Likely due to myofascial TMJ pain secondary to eating hard foods --Face CT:There is no evidence of facial bone fracture.Numerous dental caries as above as well as a large periapical lucency involving the right maxillary canine. Follow-up with dentistry is recommended. There is no evidence of overlying cellulitis or periodontal abscess. --CT Head:No acute intracranial abnormality. Pain control Avoid NSAIDs due to low platelets Appreciate Oromaxillary facial surgery Input Improved with Pain meds, avoid hard foods (2) Acute on chronic diastolic (congestive) heart failure: Plan: CXR: Cardiomegaly with pulmonary edema. Moderate size right pleural effusion with right basilar consolidation, progressed from the prior study. Last Echo on 11/11/2021: EF: 60-65%, mild concentric LVH, aortic valve sclerosis without stenosis, mild AR, mild to moderate MR, moderate TR Monitor I's and O's, daily weight, renal function and lites Appreciate cardiology input Saturating well on room air Continue Bumex 2 mg twice daily Needs follow-up with cardiology upon discharge (3) Atrial fibrillation with rapid ventricular response: Plan: Afib with RVR Suspected noncompliance with home medications Initially on Cardizem drip Continue Cardizem, metoprolol Appreciate cardiology input Currently not on anticoagulation Hypokalemia Replace as needed Erythematous rash R breast fold Likely Intertrigo ? Fungal rash Continue Clotrimazole Try to keep area dry (4) Pancytopenia: Plan: Acquired pancytopenia due to MDS Chronic, transfusion dependent No acute bleeding issues Patient gets weekly trasfusions at baseline S/P 2 unit PRBC, 3 units of platelets Monitor CBC Transfuse as needed Hb 7.6 today No Neupogen given no infection as per Dr. Barrientos Received erythropoietin as suggested by hematology. 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 Dr. Barrientos (6) Demand ischemia: Plan: Likely demand ischemia per cardiology (7) Hypomagnesemia: Plan: Replace as needed (8) CKD (chronic kidney disease), stage III: Plan: chronic, at baseline. Monitor renal function (9) Insulin dependent diabetes mellitus: Plan: Most recent A1c: 7.2 on 10/2021 Pharmacy on board for glycemic management. Continue NPH and novolog sliding scale Continue monitor BS (10) Rheumatoid arthritis: Plan: On Chronic prednisone (11) Chronic steroid use: Plan: Continue prednisone (12) Lumbar spinal stenosis: Plan: Chronic Back pain, no report today of new issues. Continue tramadol prn (13) Gout: Plan: Continue allopurinol (14) DVT prophylaxis: Plan: SCDs Re: Pancytopenia Code Status Full Code Disposition Rehab Admission and Anticipated Discharge Date Admission Date: November 15, 2021 Subjective Patient is seen and examined at bedside States feeling tired Denies any chest pain, dyspnea, dizziness, nausea, vomiting No other complaints Review of Systems Review of Systems: All systems reviewed & are unremarkable except as noted in Subjective Physical Exam Physical Exam: Physical Exam: Vitals signs as noted above General Appearance:Morbidly Obese, no apparent distress Head: normocephalic, Atraumatic Eyes: normal inspection, EOMI Neck: supple, Trachea midline Respiratory/Chest: Normal breath sounds, CTA, No accessory muscle use Cardiovascular: Irregularly irregular, No murmur Abdomen/GI:Soft, Non tender, Bowel sounds present Extremities/Musculoskeletal:normal inspection, 2+ B/L LE edema Neurologic/Psych:AAOX3, grossly no focal neurological deficits Skin: normal color, warm Results & Data Results & Data ([facility]) Vital Signs (Past 12 Hours) Vital Signs Temp Pulse Resp BP Pulse Ox 11/27/21 11:19 36.7 C 111 H 18 138/76 99 11/27/21 07:55 36.6 C 103 H 20 132/67 99 11/27/21 05:57 64 96 11/27/21 03:18 36.7 C 101 H 18 121/61 98 Laboratory Results Short CBC 11/27/21 Range/Units 06:36 WBC 2.12 L (4.8-10.8) K/uL Hgb 7.6 L (12.0-16.0) g/dL Hct 23.2 L (37-47) % Plt Count 15 L* (130-400) K/uL BMP 11/27/21 06:36 Sodium 137 Potassium 3.9 Chloride 102 Carbon Dioxide 31 BUN 35 H Creatinine 1.34 H Glucose 134 H Calcium 8.1 L
--- NOTE | 2021-11-27 15:14 | Discharge Summary ---
Date of Service November 27, 2021 Admission HPI Per Admitting Provider Patient is 81 y/o F with PMH MDS, pancytopenia, insulin-dependent DM II, HTN, atrial fibrillation not on anticoagulation, spinal stenosis, chronic low back pain, inflammatory arthritis, chronic prednisone use, h/o left breast cancer s/p lumpectomy, h/o uterine cancer s/p hysterectomy presented to ER from [facility] for elevated heart rate. Patient with history of chronic pancytopenia and receives transfusions intermittently. Reports feeling weak the past couple of days. Today presented to [facility] for platelet transfusion and was found to have A. fib RVR and referred to ER. Did not have any medication this morning other than tramadol as she states she was feeling weak and she does not like to take her medications on an empty stomach. Reports last night choked on water and had some coughing. After coughing had some discomfort upper chest. Last night started with bilateral ear discomfort radiating to jaw bilaterally and also c/o ENRIQUEZ. Denies any current chest pain or shortness of breath. Denies sensation of heart racing, dizziness. Did not have her diuretic, reports noted this morning ankles are swollen. Denies fever/chills, diaphoresis, N/V/D/C, dizziness, syncope, vision changes, neck pain, orthopnea, palpitations, sore throat, choking, otalgia, rhinorrhea, abdominal pain, paresthesias, rashes, urinary symptoms. Patient with recent hospitalization 10/15/2021 for bradycardia, accidentally taking additional Cardizem. Patient was discharged on reduced dose of metoprolol tartrate 25 mg from 50 mg daily. She was continued on her diltiazem 240 mg daily and digoxin was discontinued. Admission Exam Per Admitting Provider Physical Exam Physical Exam: General: no acute distress, obese Head: normocephalic, atraumatic Eyes: conjunctiva non-injected, anicteric ENT: normal inspection external ears, nose, mucous membranes moist Neck: supple, trachea midline Lungs: clear, no respiratory distress, no wheezing/rhonchi/rales CV: irregularly irregular, rate 130, 2+ pretibial edema Abd: protuberant, normal BS, soft, non-tender Ext: no cyanosis, no calf tenderness Neuro: A&O x 3, no focal deficits noted, normal affect Skin: warm, dry, +petechiae noted upper extremities Principal Diagnosis Acute on chronic diastolic (congestive) heart failure Atrial fibrillation with rapid ventricular response Pancytopenia Myelodysplastic syndrome Discharge Data Allergies Allergy/AdvReac Type Severity Reaction Status Date / Time hydrocodone Allergy Mild UNKNOWN Verified 11/15/21 15:36 "HAPPENED LONG TIME AGO" phenol Allergy Mild LOCALIZED Verified 11/15/21 15:36 RASH AT INJECTION SITE protamine Allergy Mild LOCALIZED Verified 11/15/21 15:36 RASH AT INJECTION SITE sodium phosphate Allergy Mild LOCALIZED Verified 11/15/21 15:36 RASH AT INJECTION SITE zinc Allergy Mild LOCALIZED Verified 11/15/21 15:36 RASH AT INJECTION SITE hydroxychloroquine AdvReac Mild "BURPED Verified 11/15/21 15:36 FOR DAYS AND TORE MY STOMACH UP" Consultations 11/15/21 14:21 ED Decision to Admit Stat 11/15/21 16:08 Consult Cardiology Routine 11/21/21 10:00 Consult Oromaxillofacial Surgery Routine Ordered Studies 11/15/21 09:39 CT facial bones w con Stat CT head/brain wo con Stat Hospital Course (1) Pain in lower jaw: Left mandibular pain/TMJ Pain Likely due to myofascial TMJ pain secondary to eating hard foods --Face CT:There is no evidence of facial bone fracture.Numerous dental caries as above as well as a large periapical lucency involving the right maxillary canine. Follow-up with dentistry is recommended. There is no evidence of overlying cellulitis or periodontal abscess. --CT Head:No acute intracranial abnormality. Pain control Avoid NSAIDs due to low platelets Appreciate Oromaxillary facial surgery Input Improved with Pain meds, avoid hard foods (2) Acute on chronic diastolic (congestive) heart failure: CXR: Cardiomegaly with pulmonary edema. Moderate size right pleural effusion with right basilar consolidation, progressed from the prior study. Last Echo on 11/11/2021: EF: 60-65%, mild concentric LVH, aortic valve sclerosis without stenosis, mild AR, mild to moderate MR, moderate TR Monitor I's and O's, daily weight, renal function and lites Appreciate cardiology input Saturating well on room air Continue Bumex 2 mg twice daily Needs follow-up with cardiology upon discharge (3) Atrial fibrillation with rapid ventricular response: Afib with RVR Suspected noncompliance with home medications Initially on Cardizem drip Continue Cardizem, metoprolol Appreciate cardiology input Currently not on anticoagulation Hypokalemia Replace as needed Erythematous rash R breast fold Likely Intertrigo ? Fungal rash Continue Clotrimazole Try to keep area dry (4) Pancytopenia: Acquired pancytopenia due to MDS Chronic, transfusion dependent No acute bleeding issues Patient gets weekly trasfusions at baseline S/P 2 unit PRBC, 3 units of platelets Monitor CBC Transfuse as needed Hb 7.6 today No Neupogen given no infection as per Dr. Barrientos Received erythropoietin as suggested by hematology. (5) MDS (myelodysplastic syndrome): chronic Follows with outpatient electrochemist. Dr. Barrientos (6) Demand ischemia: Likely demand ischemia per cardiology (7) Hypomagnesemia: Replace as needed (8) CKD (chronic kidney disease), stage III: chronic, at baseline. Monitor renal function (9) Insulin dependent diabetes mellitus: Most recent A1c: 7.2 on 10/2021 Pharmacy on board for glycemic management. Continue NPH and novolog sliding scale Continue monitor BS (10) Rheumatoid arthritis: On Chronic prednisone (11) Chronic steroid use: Continue prednisone (12) Lumbar spinal stenosis: Chronic Back pain, no report today of new issues. Continue tramadol prn (13) Gout: Continue allopurinol (14) DVT prophylaxis: SCDs Re: Pancytopenia Code Status Full Code Disposition Rehab Total Time Total Time Spent Total Time Spent (In Minutes): 47 minutes Discharge Plan Discharge Items Patient Disposition: Transfer Inpatient Rehab Fac Reason For Visit: AFIB RVR Discharge Diagnosis: Acute on chronic diastolic (congestive) heart failure Atrial fibrillation with rapid ventricular response Pancytopenia Myelodysplastic syndrome Activity: Per Instructions section Exercise/Sports: Gradually increase as tolerated Non-emergency contact: Primary Care Provider and Oncologist Call non-emergency contact if: you have any medication questions, your symptoms worsen, your pain is concerning for you and you have a fever Follow-up/Referrals: Jose Matthews MD [Primary Care Provider] - Diet: Carb Consistent or DM2 and Low Sodium (2gm) Diet Texture: Easy to Chew Addtl Attending Provider Instructions: Follow-up with your primary care physician in 1 week upon discharge from the office. Follow-up with your client project coordinator ([facility] cardiology) in 2-3 weeks Follow-up with your oncologist Dr. Barrientos in 1-2 weeks ---Patient requires weekly CBC (On ) and follow up with her Oncologist for transfusions as needed on Fridays. (For monitoring Hb and Platelets) for MDS. ([facility] can help with any transfusions) --Obtain CBC with diff and CMP on 11/28/21 and discuss with your physician for further recommendations --Patient also gets Erythropoietin Injections every 3 weeks. (Last Dose Epoetin SQ on 11/26/21) Seek immediate medical attention if your symptoms reoccur or worsen Please take all medications as instructed on discharge list below. Please call if you have any questions or problems. You can reach a [facility] hospitalist on duty at [facility] 24 hours a day by calling [phone] Pending Studies at Discharge: No Stand-Alone Forms: My [facility] Skilled Items Patient informed of condition?: Yes DNR: No Discharge Level of Care: Acute rehab Communicable Disease: No Discharge Prognosis: Stable Lines: Peripheral IV Urinary Catheter: No Medications and DC Order Prescriptions: New metoprolol succinate 50 mg Tablet Extended Release 24 Hr 100 mg PO QAM Qty: 0 RF: 0 clotrimazole 1 % Cream 1 applic EXT BID 7 Days Qty: 0 RF: 0 magnesium oxide 400 mg (241.3 mg magnesium) Tablet 400 mg PO DAILY Qty: 0 RF: 0 Continued rabeprazole [AcipHex] 20 mg tablet,delayed release (DR/EC) 20 mg PO DAILY RF: 0 prednisone 5 mg tablet 5 mg PO DAILY RF: 0 tramadol 50 mg tablet 50 mg PO Q6H PRN (Reason: Pain) RF: 0 bumetanide 1 mg tablet 2 mg PO BID RF: 0 allopurinol 300 mg tablet 300 mg PO DAILY RF: 0 loratadine 10 mg Tablet 10 mg PO DAILY RF: 0 escitalopram oxalate 10 mg tablet 10 mg PO DAILY RF: 0 diltiazem HCl 240 mg capsule,extended release 24hr 240 mg PO DAILY RF: 0 insulin asp prt-insulin aspart [Novolog Mix 70-30FlexPen U-100] 100 unit/mL (70-30) insulin pen See Rx Instructions .ROUTE .COMPLEX RF: 0 atorvastatin 20 mg tablet 20 mg PO DAILY RF: 0 Discontinued metoprolol tartrate 25 mg Tablet 25 mg PO QAM Qty: 30 RF: 0 Discharge Orders: Discharge Order (Routine); Ordered 11/27/21 Ordered By: Roger Ca Admission Data Admit Date/Time: 11/15/21 14:51 Attending Provider: Roger Ca Admit Provider: Eleonora Mccabe I. Primary Care Provider: Jose Matthews Other Providers: Eleonora Mccabe I. ; Praneeth Dowell ; [facility] ; Oc Hernadez
== END 2021-11-27 16:44 | DRG 308 ==
LOC: ED 09:23 → 2S 14:51 → SUATTDRO 14:51 → 2S 17:06

== ENCOUNTER 2021-12-11 21:10 | Inpatient (IN) ==
--- NOTE | 2021-12-11 21:56 | Emergency Department Note ---
Impression & Plan Hypoxia, SOB (shortness of breath), Anemia, Thrombocytopenia, CHF (congestive heart failure) ED Provider Note NAME: ANA MOBLEY AGE: 81 SEX: F : 1940 ARRIVES VIA: Ambulance INFORMANT: [Patient] ED PROVIDER(S): [Ritesh Magallon MD] CHIEF COMPLAINT: Weakness, short of breath HISTORY OF PRESENT ILLNESS: The patient is a 81-year-old female presents to the ER with increasing shortness of breath and weakness. She began to feel short of breath and weak just a few hours ago. The patient had chemotherapy today and things went well. She was given extra fluids though because her blood pressure was a bit low. There has been no fever, no abdominal pain, no vomiting. She does not have chest pain. She just feels winded. She has no diagnosed lung disease but she has had fluid overload before. REVIEW OF SYSTEMS: See HPI for pertinent positives and negatives. A total of ten systems were reviewed and were otherwise negative. PMHx/PSHx: See Below SOCIAL HISTORY: See Below. PHYSICAL EXAM: GENERAL: Patient is in mild respiratory distress. HEENT: No acute trauma, normocephalic atraumatic, mucous membranes moist, no nasal congestion, no scleral icterus. NECK: No stridor, no adenopathy, no meningismus, trachea is midline. LUNGS: Wheezing bilaterally, breath sounds are diminished, she does seem to have an increased respiratory rate and appears mildly short of breath. HEART: Mildly tachycardic, irregular rhythm, subtle systolic murmur. ABDOMEN: Soft, nontender, bowel sounds positive, no peritonitis. EXTREMITIES: No cyanosis, moderate bilateral pedal edema, full range of motion of all the joints without pain or difficulty, no signs for acute trauma. NEUROLOGIC: Oriented x 3, no acute motor or sensory deficits, no focal weakness. SKIN: No rash, no jaundice, no diaphoresis. Pale. DIFFERENTIAL DIAGNOSIS: Infection, dehydration, COVID-19, influenza, CHF, UTI, bronchitis, pneumonia, metabolic abnormality, hypo/hyperglycemia, electrolyte disturbance, anemia, hypoxia, cardiac sources, as well as other pathologies. EMERGENCY DEPARTMENT COURSE/PROCEDURES: ECG: Indication was weakness and shortness of breath. The ECG shows atrial fibrillation with a rate of 98. There is an old septal infarct. There is diffuse nonspecific ST change. There is no ST elevation, no PVCs. The QTc is 434. Continuous Cardiac Monitoring: An order was placed for continuous cardiac monitoring. The monitor shows a rate of 99 with atrial fibrillation. Critical Care Note: I have personally spent 47 minutes of critical care time in the direct management of this patient. This includes bedside care, interpretation of diagnostic studies, and testing, discussion with consultants, patient, and family members, and other required patient management activities. This 47 minutes is in excess of all separately billable procedures. MEDICAL DECISION MAKING: There is no leukocytosis. The patient is anemic but she carries a history of anemia. Her numbers are about at her typical baseline. Platelet count was low at 14. She has had a low platelet count before. No concerning coagulopathy. Renal panel testing shows an elevation to the creatinine, the patient does have a history of renal insufficiency. Lactic acid level was not elevated making severe sepsis less likely. No concerning liver enzyme elevation. The TSH was a bit high but the T4 was normal. ECG shows atrial fibrillation, no obvious ische marychuy change. Cardiac enzyme testing x1 is slightly elevated, this elevation could be from ischemia versus mismatch. Urinalysis did not show infection. COVID, influenza and RSV test were negative. Chest x-ray shows some cardiomegaly and CHF. There was a right pleural effusion. The patient had a Munguia catheter placed. She was given 1 mg of IV Bumex. She is diuresing. She received a DuoNeb. She was eventually placed on BiPAP as she was quite short of breath. The patient presents hypoxic. She appeared dyspneic on exam. She appears to be fluid overloaded. Given her hypoxia, given the CHF as well as other laboratory findings, I do think a hospital stay is warranted. I spoke with the patient and foster care case manager. The on-call hospitalist was consulted. Patient does seem to be doing better since treatment here in the ED. Past Med/Surg History Medical History A-fib Acute hyperkalemia Acute hypokalemia Bradycardia CKD (chronic kidney disease), stage III Diabetes Elevated troponin I level GI bleed Hx of pneumococcal pneumonia Hypertension Hypomagnesemia Insulin dependent diabetes mellitus Malignant neoplasm of central portion of female breast (10/01/11) "Left breast pain Finding of a left breast mass Status post biopsy revealing infiltrating ductal carcinoma Status post partial mastectomy and sentinel lymph node biopsy Pathologic stage [id number] Estrogen receptor positive, progesterone receptor positive, HER-2/abelardo negative Status post completion of radiation therapy 04/08/2012 received 6120 cGy" Myelodysplastic syndrome with 5 q minus Surgical History History of hysterectomy History of lumpectomy Hx of cholecystectomy Family History Other Cancer Diabetes Social History Smoking Status: Never smoker Hx Alcohol Use: No Hx Substance Use: No Preferred Language: Cymro Communication Ability: Effective 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 Beliefs That Will Affect Care: None marital status: / Current Living Situation: Alone How many Children do You have: 3 Feels Safe at Home: Yes Assistive Devices: Walker Allergies Allergies Allergy/AdvReac Type Severity Reaction Status Date / Time hydrocodone Allergy Mild UNKNOWN Verified 12/11/21 22:01 "HAPPENED LONG TIME AGO" phenol Allergy Mild LOCALIZED Verified 12/11/21 22:01 RASH AT INJECTION SITE protamine Allergy Mild LOCALIZED Verified 12/11/21 22:01 RASH AT INJECTION SITE sodium phosphate Allergy Mild LOCALIZED Verified 12/11/21 22:01 RASH AT INJECTION SITE zinc Allergy Mild LOCALIZED Verified 12/11/21 22:01 RASH AT INJECTION SITE hydroxychloroquine AdvReac Mild "BURPED Verified 12/11/21 22:01 FOR DAYS AND TORE MY STOMACH UP" Home Meds Home Medications Medication Instructions Recorded Confirmed allopurinol 300 mg tablet 300 mg PO DAILY 10/15/21 12/11/21 bumetanide 1 mg tablet 2 mg PO BID 10/15/21 12/11/21 diltiazem HCl 240 mg 240 mg PO DAILY 10/15/21 12/11/21 capsule,extended release 24 hr escitalopram oxalate 10 mg tablet 10 mg PO DAILY 10/15/21 12/11/21 loratadine 10 mg tablet 10 mg PO DAILY 10/15/21 12/11/21 prednisone 5 mg tablet 5 mg PO DAILY 10/15/21 12/11/21 insulin aspar prot-insulin aspart 24 unit SUBCUT BID 10/17/21 12/11/21 100 unit/mL (70-30) subcutaneous pen (Novolog Mix 70-30FlexPen U-100) atorvastatin 20 mg tablet 20 mg PO DAILY 11/15/21 12/11/21 acetaminophen 500 mg capsule 1,000 mg PO Q8H PRN cap 12/10/21 12/11/21 docusate sodium 100 mg capsule 100 mg PO BID 12/10/21 12/11/21 pantoprazole 40 mg tablet,delayed 40 mg PO DAILY 12/10/21 12/11/21 release spironolactone 25 mg tablet 50 mg PO DAILY tab 12/10/21 12/11/21 insulin aspart U-100 100 unit/mL 1 sliding scale dose SUBCUT ACHS 12/11/21 12/11/21 subcutaneous solution (Novolog U-100 Insulin aspart) metoprolol succinate 100 mg 100 mg PO QAM 12/11/21 12/11/21 tablet,extended release 24 hr metoprolol succinate 50 mg 50 mg PO QPM 12/11/21 12/11/21 tablet,extended release 24 hr Previous Rx's Medication Instructions Recorded magnesium oxide 400 mg (241.3 mg 400 mg PO DAILY #0 tab 11/27/21 magnesium) tablet Results & Data (ED) Vital Signs Vital Signs - 24 hr 12/11/21 21:04 12/11/21 21:16 12/11/21 21:46 Temperature 37.3 C Temperature Source Oral Pulse Rate 99 H 108 H Pulse Rate [Finger] Respiratory Rate 24 24 Respiratory Effort / Characteristics Labored Spontaneous Accessory Muscle Use Labored Short of Breath Respiratory Depth Normal Deep Respiratory Pattern Tachypnea Blood Pressure 101/58 L Blood Pressure Mean 72 Pulse Oximetry 97 100 Oxygen Delivery Method Nasal Cannula Nasal Cannula Oxygen Flow Rate 4 4 Fraction of Inspired Oxygen 40 Sepsis Recent Fever Within 48 Hours No Sepsis New/Unexplained Change in Mental Status No Sepsis Action Taken by Nursing No Action Required 12/11/21 21:49 12/11/21 22:25 12/11/21 22:30 Temperature Temperature Source Pulse Rate 102 H 104 H 115 H Pulse Rate [Finger] Respiratory Rate 22 28 H 18 Respiratory Effort / Characteristics Respiratory Depth Respiratory Pattern Blood Pressure 121/57 L 121/73 133/75 Blood Pressure Mean 78 89 94 Pulse Oximetry 98 100 100 Oxygen Delivery Method Room Air BiPAP BiPAP Oxygen Flow Rate Fraction of Inspired Oxygen Sepsis Recent Fever Within 48 Hours Sepsis New/Unexplained Change in Mental Status Sepsis Action Taken by Nursing 12/11/21 22:45 12/11/21 23:00 12/11/21 23:03 Temperature Temperature Source Pulse Rate 105 H 103 H Pulse Rate [Finger] 99 H Respiratory Rate 17 17 19 Respiratory Effort / Characteristics Non-Labored Respiratory Depth Respiratory Pattern Blood Pressure 138/93 143/88 H Blood Pressure Mean 108 106 Pulse Oximetry 100 100 100 Oxygen Delivery Method BiPAP BiPAP BiPAP Oxygen Flow Rate Fraction of Inspired Oxygen 40 Sepsis Recent Fever Within 48 Hours Sepsis New/Unexplained Change in Mental Status Sepsis Action Taken by Nursing 12/11/21 23:06 Temperature Temperature Source Pulse Rate 103 H Pulse Rate [Finger] Respiratory Rate 24 Respiratory Effort / Characteristics Respiratory Depth Respiratory Pattern Blood Pressure Blood Pressure Mean Pulse Oximetry 100 Oxygen Delivery Method Oxygen Flow Rate Fraction of Inspired Oxygen 40 Sepsis Recent Fever Within 48 Hours Sepsis New/Unexplained Change in Mental Status Sepsis Action Taken by Prison Medications Current Medication List: was personally reviewed by me Laboratory Data Attestation: I reviewed the patient's lab results. Result diagrams: 12/11/21 21:47 12/11/21 21:47 Lab Results 12/11/21 12/11/21 12/11/21 Range/Units 21:47 21:47 21:47 WBC 8.13 (4.8-10.8) K/uL RBC 2.64 L (4.2-5.4) M/uL Hgb 7.8 L (12.0-16.0) g/dL Hct 23.3 L (37-47) % MCV 88.3 (80-100) fL MCH 29.5 (25-34) pg MCHC 33.5 (32-36) g/dL RDW Std Deviation 49.4 H (36.4-46.3) fL RDW Coeff of Griffin 15.3 H (11.5-14.5) % Plt Count 14 L* (130-400) K/uL Immature Gran % (Auto) 0.7 % Neut % (Auto) 90.2 % Lymph % (Auto) 3.8 % Reagan % (Auto) 5.2 % Eos % (Auto) 0.0 % Baso % (Auto) 0.1 % Neut # (Auto) 7.33 H (1.4-6.5) K/uL Lymph # (Auto) 0.31 L (1.2-3.4) K/uL Reagan # (Auto) 0.42 (0.11-0.59) K/uL Eos # (Auto) 0.00 (0-0.5) K/uL Baso # (Auto) 0.01 (0-0.2) K/uL Immature Gran # (Auto) 0.06 H (0.00-0.02) K/uL Hypogranular Neuts 3+ PT 12.9 H (9.0-12.0) Seconds INR 1.2 H (0.9-1.1) APTT 28.5 (21.0-31.0) Seconds PTT Ratio 1.0 Sodium 133 L (136-145) mmol/L Potassium 4.1 (3.5-5.1) mmol/L Chloride 99 (98-107) mmol/L Carbon Dioxide 26 (21-32) mmol/L Anion Gap 8 (3-11) BUN 64 H (6-23) mg/dl Creatinine 1.73 H (0.6-1.2) mg/dl Est Cr Clr Drug Dosing 32.2 ml/min Est GFR ( Amer) 32.0 ml/min Est GFR (Non-Af Amer) 27.6 ml/min BUN/Creatinine Ratio 37.0 H (10-20) Glucose 189 H (70-99(Fasting)) mg/dl Lactate (0.4-2.0) mmol/L Calcium 8.5 (8.5-10.1) mg/dl Magnesium 1.8 (1.7-2.4) mg/dl Total Bilirubin 1.4 H (0.2-1.0) mg/dl AST 9 L (13-39) U/L ALT 12 (7-52) U/L Alkaline Phosphatase 91 (34-104) U/L Troponin I High Sens 24.1 H D (0-14) pg/ml B-Natriuretic Peptide (0-100) pg/ml Total Protein 5.6 L (6.0-8.3) gm/dl Albumin 3.7 (3.4-5.0) gm/dl Globulin 1.9 L (2.5-4.0) gm/dl Albumin/Globulin Ratio 1.9 (0.9-2) TSH (0.300-4.500) uIu/ml Free T4 (0.61-1.60) ng/dl Urine Color Urine Appearance (Clear) Urine pH (4.5-7.5) Ur Specific Marion (1.000-1.030) Urine Protein (Negative) Urine Glucose (UA) (Negative) Urine Ketones (Negative) Urine Blood (Negative) Urine Nitrite (Negative) Urine Bilirubin (Negative) Urine Urobilinogen (Negative) Ur Leukocyte Esterase (Negative) Urine WBC (Auto) (0-5) /hpf Urine RBC (Auto) (0-4) /hpf U Hyaline Cast (Auto) (0-5) /lpf U Epithel Cells (Auto) (0-5) /lpf Urine Bacteria (Auto) (Negative) SARS-CoV-2 (PCR) (Negative) Influenza Type A (PCR) (Neg) Influenza Type B (PCR) (Neg) RSV (RT-PCR) (Neg) 12/11/21 12/11/21 12/11/21 Range/Units 21:47 21:47 21:47 WBC (4.8-10.8) K/uL RBC (4.2-5.4) M/uL Hgb (12.0-16.0) g/dL Hct (37-47) % MCV (80-100) fL MCH (25-34) pg MCHC (32-36) g/dL RDW Std Deviation (36.4-46.3) fL RDW Coeff of Griffin (11.5-14.5) % Plt Count (130-400) K/uL Immature Gran % (Auto) % Neut % (Auto) % Lymph % (Auto) % Reagan % (Auto) % Eos % (Auto) % Baso % (Auto) % Neut # (Auto) (1.4-6.5) K/uL Lymph # (Auto) (1.2-3.4) K/uL Reagan # (Auto) (0.11-0.59) K/uL Eos # (Auto) (0-0.5) K/uL Baso # (Auto) (0-0.2) K/uL Immature Gran # (Auto) (0.00-0.02) K/uL Hypogranular Neuts PT (9.0-12.0) Seconds INR (0.9-1.1) APTT (21.0-31.0) Seconds PTT Ratio Sodium (136-145) mmol/L Potassium (3.5-5.1) mmol/L Chloride (98-107) mmol/L Carbon Dioxide (21-32) mmol/L Anion Gap (3-11) BUN (6-23) mg/dl Creatinine (0.6-1.2) mg/dl Est Cr Clr Drug Dosing ml/min Est GFR ( Amer) ml/min Est GFR (Non-Af Amer) ml/min BUN/Creatinine Ratio (10-20) Glucose (70-99(Fasting)) mg/dl Lactate 1.1 (0.4-2.0) mmol/L Calcium (8.5-10.1) mg/dl Magnesium (1.7-2.4) mg/dl Total Bilirubin (0.2-1.0) mg/dl AST (13-39) U/L ALT (7-52) U/L Alkaline Phosphatase (34-104) U/L Troponin I High Sens (0-14) pg/ml B-Natriuretic Peptide 569 H (0-100) pg/ml Total Protein (6.0-8.3) gm/dl Albumin (3.4-5.0) gm/dl Globulin (2.5-4.0) gm/dl Albumin/Globulin Ratio (0.9-2) TSH 6.129 H (0.300-4.500) uIu/ml Free T4 0.75 (0.61-1.60) ng/dl Urine Color Urine Appearance (Clear) Urine pH (4.5-7.5) Ur Specific Marion (1.000-1.030) Urine Protein (Negative) Urine Glucose (UA) (Negative) Urine Ketones (Negative) Urine Blood (Negative) Urine Nitrite (Negative) Urine Bilirubin (Negative) Urine Urobilinogen (Negative) Ur Leukocyte Esterase (Negative) Urine WBC (Auto) (0-5) /hpf Urine RBC (Auto) (0-4) /hpf U Hyaline Cast (Auto) (0-5) /lpf U Epithel Cells (Auto) (0-5) /lpf Urine Bacteria (Auto) (Negative) SARS-CoV-2 (PCR) (Negative) Influenza Type A (PCR) (Neg) Influenza Type B (PCR) (Neg) RSV (RT-PCR) (Neg) 12/11/21 12/11/21 Range/Units 22:20 22:45 WBC (4.8-10.8) K/uL RBC (4.2-5.4) M/uL Hgb (12.0-16.0) g/dL Hct (37-47) % MCV (80-100) fL MCH (25-34) pg MCHC (32-36) g/dL RDW Std Deviation (36.4-46.3) fL RDW Coeff of Griffin (11.5-14.5) % Plt Count (130-400) K/uL Immature Gran % (Auto) % Neut % (Auto) % Lymph % (Auto) % Reagan % (Auto) % Eos % (Auto) % Baso % (Auto) % Neut # (Auto) (1.4-6.5) K/uL Lymph # (Auto) (1.2-3.4) K/uL Reagan # (Auto) (0.11-0.59) K/uL Eos # (Auto) (0-0.5) K/uL Baso # (Auto) (0-0.2) K/uL Immature Gran # (Auto) (0.00-0.02) K/uL Hypogranular Neuts PT (9.0-12.0) Seconds INR (0.9-1.1) APTT (21.0-31.0) Seconds PTT Ratio Sodium (136-145) mmol/L Potassium (3.5-5.1) mmol/L Chloride (98-107) mmol/L Carbon Dioxide (21-32) mmol/L Anion Gap (3-11) BUN (6-23) mg/dl Creatinine (0.6-1.2) mg/dl Est Cr Clr Drug Dosing ml/min Est GFR ( Amer) ml/min Est GFR (Non-Af Amer) ml/min BUN/Creatinine Ratio (10-20) Glucose (70-99(Fasting)) mg/dl Lactate (0.4-2.0) mmol/L Calcium (8.5-10.1) mg/dl Magnesium (1.7-2.4) mg/dl Total Bilirubin (0.2-1.0) mg/dl AST (13-39) U/L ALT (7-52) U/L Alkaline Phosphatase (34-104) U/L Troponin I High Sens (0-14) pg/ml B-Natriuretic Peptide (0-100) pg/ml Total Protein (6.0-8.3) gm/dl Albumin (3.4-5.0) gm/dl Globulin (2.5-4.0) gm/dl Albumin/Globulin Ratio (0.9-2) TSH (0.300-4.500) uIu/ml Free T4 (0.61-1.60) ng/dl Urine Color Yellow Urine Appearance Clear (Clear) Urine pH 5.0 (4.5-7.5) Ur Specific Marion 1.014 (1.000-1.030) Urine Protein Negative (Negative) Urine Glucose (UA) Negative (Negative) Urine Ketones Negative (Negative) Urine Blood Trace H (Negative) Urine Nitrite Negative (Negative) Urine Bilirubin Negative (Negative) Urine Urobilinogen Negative (Negative) Ur Leukocyte Esterase Negative (Negative) Urine WBC (Auto) 1-5 (0-5) /hpf Urine RBC (Auto) 0-4 (0-4) /hpf U Hyaline Cast (Auto) 0 (0-5) /lpf U Epithel Cells (Auto) 0-5 (0-5) /lpf Urine Bacteria (Auto) Negative (Negative) SARS-CoV-2 (PCR) NEGATIVE (Negative) Influenza Type A (PCR) Negative (Neg) Influenza Type B (PCR) Negative (Neg) RSV (RT-PCR) Negative (Neg) Administered Medications Discontinued Medications Albuterol (Albut/Ipratrop 3mg/0.5mg Neb 3 Ml Vial) 3 ml NEB NOW STA; Protocol Stop: 12/11/21 22:45 Last Admin: 12/11/21 23:02 Dose: 3 ml Documented by: [id number] Bumetanide 1 mg/ Syringe 4 mls @ 4 mls/min IV NOW STA Stop: 12/11/21 22:45 Last Admin: 12/11/21 23:08 Dose: 4 mls/min Documented by: [id number] Imaging Data Attestation: I personally reviewed and interpreted this imaging study as follows: My Impression: Chest x-ray: There is cardiomegaly and CHF. A right pleural effusion is seen. No pneumothorax Discharge Plan Visit Data Chief Complaint: Weakness ED Provider: Feese,Ritesh J Discharge Problem: Hypoxia, SOB (shortness of breath), Anemia, Thrombocytopenia, CHF (congestive heart failure) Patient Disposition: Admitted As Inpatient Condition: Fair Forms Stand Alone Forms: [facility], Virtual Emergency Department, Important Visit Information Prescriptions Prescriptions: No Action acetaminophen 500 mg capsule 1,000 mg PO Q8H PRN (Reason: Pain) RF: 0 docusate sodium 100 mg capsule 100 mg PO BID RF: 0 pantoprazole 40 mg tablet,delayed release (DR/EC) 40 mg PO DAILY RF: 0 spironolactone 25 mg tablet 50 mg PO DAILY RF: 0 prednisone 5 mg tablet 5 mg PO DAILY RF: 0 bumetanide 1 mg tablet 2 mg PO BID RF: 0 allopurinol 300 mg tablet 300 mg PO DAILY RF: 0 loratadine 10 mg Tablet 10 mg PO DAILY RF: 0 escitalopram oxalate 10 mg tablet 10 mg PO DAILY RF: 0 diltiazem HCl 240 mg capsule,extended release 24hr 240 mg PO DAILY RF: 0 insulin asp prt-insulin aspart [Novolog Mix 70-30FlexPen U-100] 100 unit/mL (70-30) insulin pen 24 unit subcut BID RF: 0 metoprolol succinate 100 mg tablet extended release 24 hr 100 mg PO QAM RF: 0 insulin aspart U-100 [Novolog U-100 Insulin aspart] 100 unit/mL Solution 1 sliding scale dose SUBCUT ACHS RF: 0 metoprolol succinate 50 mg tablet extended release 24 hr 50 mg PO QPM RF: 0 atorvastatin 20 mg tablet 20 mg PO DAILY RF: 0 magnesium oxide 400 mg (241.3 mg magnesium) Tablet 400 mg PO DAILY Qty: 0 RF: 0 Referrals Referrals: [facility] [Primary Care Provider] -
[2021-12-11 22:26] LABS: INR 1.2 (0.9-1.1); Partial Thromboplastin Time 28.5 Seconds (21.0-31.0); Prothrombin Time 12.9 Seconds (9.0-12.0)
[2021-12-11 22:31] LABS: Hematocrit (blood only) 23.3 % (37-47); Hemoglobin 7.8 g/dL (12.0-16.0); Mean Corpuscular Hemoglobin 29.5 pg (25-34); Mean Corpuscular Hgb Conc 33.5 g/dL (32-36); Mean Corpuscular Volume 88.3 fL (80-100); Platelet Count 14 K/uL (130-400); RDW Coefficient of Variation 15.3 % (11.5-14.5); RDW Standard Deviation 49.4 fL (36.4-46.3); Red Blood Count 2.64 M/uL (4.2-5.4); White Blood Count 8.13 K/uL (4.8-10.8)
[2021-12-11 22:36] LABS: Albumin Globulin Ratio 1.9 (0.9-2); Albumin Level 3.7 gm/dl (3.4-5.0); Bilirubin,Total 1.4 mg/dl (0.2-1.0); Calcium 8.5 mg/dl (8.5-10.1); Creatinine Clr Calc Pharmacy 32.2 ml/min; Est GFR (Non-African American) 27.6 ml/min; Globulin 1.9 gm/dl (2.5-4.0); Magnesium 1.8 mg/dl (1.7-2.4); Potassium 4.1 mmol/L (3.5-5.1); Total Protein 5.6 gm/dl (6.0-8.3)
[2021-12-11 22:39] LABS: Troponin I High Sensitivity 24.1 pg/ml (0-14)
[2021-12-11 22:40] LABS: Basophils # (auto) 0.01 K/uL (0-0.2); Basophils % (auto) 0.1 %; Hypogranular Neutrophils 3+; Immature Granulocytes # (auto) 0.06 K/uL (0.00-0.02); Immature Granulocytes % (auto) 0.7 %; Lymphocytes # (auto) 0.31 K/uL (1.2-3.4); Lymphocytes % (auto) 3.8 %; Monocytes # (auto) 0.42 K/uL (0.11-0.59); Monocytes % (auto) 5.2 %; Neutrophils # (auto) 7.33 K/uL (1.4-6.5); Neutrophils % (auto) 90.2 %
[2021-12-11] MEDS ORDERED: BUMETANIDE 1 MG in SYRINGE 0 ML IV STA (22:44)
[2021-12-11] MEDS ORDERED: ALBUT/IPRATROP 3MG/0.5MG NEB 3 ML VIAL NEB STA (22:44)
[2021-12-11 22:47] LABS: Thyroid Stimulating Hormone 6.129 uIu/ml (0.300-4.500)
[2021-12-11 23:06] LABS: Influenza A virus by PCR Negative (Neg); Influenza B virus by PCR Negative (Neg); RSV by PCR Negative (Neg); SARS CoV2 RNA(COVID-19) InHosp NEGATIVE (Negative)
[2021-12-11 23:16] LABS: Appearance Urine Clear (Clear); Bacteria Urine Automated Negative (Negative); Bilirubin Urine Negative (Negative); Blood Urine Trace (Negative); Cast Urine Automated 0 /lpf (0-5); Color Urine Yellow; Epithelial Cell Urine Auto 0-5 /lpf (0-5); Glucose Urine UA Negative (Negative); Ketones Urine Negative (Negative); Leukocyte Esterase Urine Negative (Negative); Nitrite Urine Negative (Negative); Protein Urine Negative (Negative); RBC Urine Automated 0-4 /hpf (0-4); Specific Gravity Urine 1.014 (1.000-1.030); Urobilinogen Urine Negative (Negative)
[2021-12-11 23:19] LABS: T4 Free Thyroxine 0.75 ng/dl (0.61-1.60)
[2021-12-11] MEDS ORDERED: MAGNESIUM SULFATE / D5W 1 GM/100 ML BAG IV STA (23:28)
[2021-12-12] MEDS ORDERED: METOPROLOL TARTRATE 1 MG/ML VIAL IV STA (00:03)
--- NOTE | 2021-12-12 00:04 | History & Physical Report ---
Date of Service December 12, 2021 Assessment & Plan (1) Acute hypoxemic respiratory failure: Plan: Secondary to decompensated heart failure Hx diastolic dysfunction, underlying pulm hypertension Fluid overload from [facility]us [facility] due to low blood pressure ARF on CKD ? Cardiorenal syndrome Troponin elevation secondary to illness valvular heart disease (mild AR, mild to moderate MR, moderate TR) Atrial fib, rate slightly elevated secondary to illness, not on anticoagulation secondary to bleeding risk given history of pancytopenia from MDS ongoing chemotherapy hyperlipidemia on statin Rx endometrial cancer status post surgery left breast cancer status post surgery, chemotherapy, tamoxifen Rx Chronic anemia, hemoglobin at baseline DM2 insulin requiring, reasonable control as of recent hemoglobin A1c of 7.14 Oct 2021 inflammatory arthritis on chronic steroid Rx past tobacco abuse PCU Supplemental O2 Baseline ABG Wean off BiPAP Diuretic Rx Strict I/Os, daily weights, CHF education, fluid restriction Cardiology consult Re: Decompensated heart failure Renal ultrasound, Nephrology evaluation if with further deterioration of kidney function Follow troponin Basal insulin adjusted for n.p.o. status while patient on BiPAP, ISS BG goal 1 10-1 40 DVT prophylaxis with SCDs Re: Thrombocytopenia Full code Patient son requesting requesting updates from providers. Mr. Thomas Skaggs, contact #[phone]. Text document was generated using [employer] voice recognition software. It may contain grammatical or spelling errors. Kindly contact undersigned for clarification of any documentation item in question. History of Present Illness Chief Complaint: Shortness of breath Primary Care Provider: Dr. Lipscomb History obtained from patient, family, and records. Medical history significant for chronic diastolic heart failure (EF 60 to 65%, TTE 2021), valvular heart disease (mild AR, mild to moderate MR, moderate TR), pulmonary hypertension, A. fib not on anticoagulation, hypertension, hyperlipidemia, endometrial cancer status post surgery, left breast cancer status post surgery, chemotherapy, tamoxifen Rx, myelodysplastic syndrome ongoing chemotherapy, chronic pancytopenia (baseline hemoglobin 7-8), DM2 insulin requiring, CRI (baseline creatinine 1.5), inflammatory arthritis on chronic steroid Rx, past tobacco abuse. Last confinement 2 weeks ago for decompensated heart failure. Patient discharged to rehab and was just discharged home today. Last confinement 2 weeks ago for decompensated heart failure. Patient discharged to rehab and was just discharged home today. Fluids has been coming off leading to weight loss since rehab stay as per patient. Beta-elvin increased in dose follow discharge to rehab facility as per patient. Patient had chemotherapy this afternoon at [facility].. Blood pressure noted to be low. IV fluids had to be given at the [facility]. Patient later noted increasing shortness of breath at home. No chest pain, no cough symptoms. BiPAP initiated at the ER. IV Bumex and neb treatment administered at the ER. Patient currently feeling much better. 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 Allergies Allergy/AdvReac Type Severity Reaction Status Date / Time hydrocodone Allergy Mild UNKNOWN Verified 12/11/21 22:01 "HAPPENED LONG TIME AGO" phenol Allergy Mild LOCALIZED Verified 12/11/21 22:01 RASH AT INJECTION SITE protamine Allergy Mild LOCALIZED Verified 12/11/21 22:01 RASH AT INJECTION SITE sodium phosphate Allergy Mild LOCALIZED Verified 12/11/21 22:01 RASH AT INJECTION SITE zinc Allergy Mild LOCALIZED Verified 12/11/21 22:01 RASH AT INJECTION SITE hydroxychloroquine AdvReac Mild "BURPED Verified 12/11/21 22:01 FOR DAYS AND TORE MY STOMACH UP" Home Medications Medication Instructions Recorded Confirmed Type allopurinol 300 mg tablet 300 mg PO DAILY 10/15/21 12/11/21 History bumetanide 1 mg tablet 2 mg PO BID 10/15/21 12/11/21 History diltiazem HCl 240 mg 240 mg PO DAILY 10/15/21 12/11/21 History capsule,extended release 24 hr escitalopram oxalate 10 mg tablet 10 mg PO DAILY 10/15/21 12/11/21 History loratadine 10 mg tablet 10 mg PO DAILY 10/15/21 12/11/21 History prednisone 5 mg tablet 5 mg PO DAILY 10/15/21 12/11/21 History insulin aspar prot-insulin aspart 28 unit SUBCUT QDD 10/17/21 12/12/21 History 100 unit/mL (70-30) subcutaneous pen (Novolog Mix 70-30FlexPen U-100) atorvastatin 20 mg tablet 20 mg PO DAILY 11/15/21 12/11/21 History magnesium oxide 400 mg (241.3 mg 400 mg PO DAILY #0 tab 11/27/21 12/11/21 Rx magnesium) tablet acetaminophen 500 mg capsule 1,000 mg PO Q8H PRN cap 12/10/21 12/11/21 History docusate sodium 100 mg capsule 100 mg PO BID 12/10/21 12/11/21 History pantoprazole 40 mg tablet,delayed 40 mg PO DAILY 12/10/21 12/11/21 History release spironolactone 25 mg tablet 50 mg PO DAILY tab 12/10/21 12/11/21 History metoprolol succinate 100 mg 100 mg PO QAM 12/11/21 12/11/21 History tablet,extended release 24 hr metoprolol succinate 50 mg 50 mg PO QPM 12/11/21 12/11/21 History tablet,extended release 24 hr rabeprazole 20 mg tablet,delayed 20 mg PO QAM 12/11/21 12/11/21 History release insulin NPH isoph U-100 human 100 See Rx Instructions .ROUTE .COMPLEX 12/12/21 12/12/21 History unit/mL (3 mL) subcutaneous pen Past Med/Surg History Medical History A-fib Acute hyperkalemia Acute hypokalemia Bradycardia CKD (chronic kidney disease), stage III Diabetes Elevated troponin I level GI bleed Hx of pneumococcal pneumonia Hypertension Hypomagnesemia Insulin dependent diabetes mellitus Malignant neoplasm of central portion of female breast (10/01/11) "Left breast pain Finding of a left breast mass Status post biopsy revealing infiltrating ductal carcinoma Status post partial mastectomy and sentinel lymph node biopsy Pathologic stage [id number] Estrogen receptor positive, progesterone receptor positive, HER-2/abelardo negative Status post completion of radiation therapy 04/08/2012 received 6120 cGy" Myelodysplastic syndrome with 5 q minus Surgical History History of hysterectomy History of lumpectomy Hx of cholecystectomy Family History Other Cancer Diabetes Social History Smoking Status: Never smoker Second Hand Exposure: No; Do You Dip or Chew Tobacco: No; Tobacco Cessation Education Requested by Patient: No Hx Alcohol Use: No Hx Substance Use: No Preferred Language: [place] Communication Ability: Effective Communications Department Chair Required: No Beliefs That Will Affect Care: None marital status: / Current Living Situation: Alone How many Children do You have: 3 Other Information That Helps Us Care for You: No Feels Safe at Home: Yes Safety Concerns: Feels Safe At This Time Assistive Devices: Glasses and Walker Review of Systems Review of Systems: As per HPI, all other systems reviewed and negative Physical Exam Physical Exam: GENERAL: Slightly anxious, slightly uncomfortable, obese, no respiratory distress SKIN: Pallor,, warm HEENT: Pale palpebral conjunctivae, no ptosis, dry buccal mucosa, BiPAP in place short neck, NECK : Supple, no tenderness CHEST : Decreased breath sounds, no tenderness HEART : Irregular, no obvious murmurs ABDOMEN: Some distention, nontender EXTREMITIES : Bilateral LE swelling, no LE tenderness, no other conspicuous deformities noted NEUROLOGIC : Coherent, no facial asymmetry, slightly hard of hearing, no other gross focality Results & Data Results & Data ([facility]) Vital Signs (Past 12 Hours) Vital Signs Temp Pulse Pulse Resp BP Pulse Ox 12/11/21 23:06 103 H 24 100 12/11/21 23:03 99 H 19 100 12/11/21 23:00 103 H 17 143/88 H 100 12/11/21 22:45 105 H 17 138/93 100 12/11/21 22:30 115 H 18 133/75 100 12/11/21 22:25 104 H 28 H 121/73 100 12/11/21 21:49 102 H 22 121/57 L 98 12/11/21 21:46 108 H 24 100 12/11/21 21:16 37.3 C 99 H 24 101/58 L 97 Laboratory Results Laboratory Results WBC 8.13 K/uL (4.8-10.8) 12/11/21 21:47 RBC 2.64 M/uL (4.2-5.4) L 12/11/21 21:47 Hgb 7.8 g/dL (12.0-16.0) L 12/11/21 21:47 Hct 23.3 % (37-47) L 12/11/21 21:47 MCV 88.3 fL (80-100) 12/11/21 21:47 MCH 29.5 pg (25-34) 12/11/21 21:47 MCHC 33.5 g/dL (32-36) 12/11/21 21:47 RDW Std Deviation 49.4 fL (36.4-46.3) H 12/11/21 21:47 RDW Coeff of [place] 15.3 % (11.5-14.5) H 12/11/21 21:47 Plt Count 14 K/uL (130-400) L* 12/11/21 21:47 Immature Gran % (Auto) 0.7 % 12/11/21 21:47 Neut % (Auto) 90.2 % 12/11/21 21:47 Lymph % (Auto) 3.8 % 12/11/21 21:47 [place] % (Auto) 5.2 % 12/11/21 21:47 Eos % (Auto) 0.0 % 12/11/21 21:47 Baso % (Auto) 0.1 % 12/11/21 21:47 Neut # (Auto) 7.33 K/uL (1.4-6.5) H 12/11/21 21:47 Lymph # (Auto) 0.31 K/uL (1.2-3.4) L 12/11/21 21:47 [place] # (Auto) 0.42 K/uL (0.11-0.59) 12/11/21 21:47 Eos # (Auto) 0.00 K/uL (0-0.5) 12/11/21 21:47 Baso # (Auto) 0.01 K/uL (0-0.2) 12/11/21 21:47 Immature Gran # (Auto) 0.06 K/uL (0.00-0.02) H 12/11/21 21:47 Hypogranular Neuts 3+ 12/11/21 21:47 PT 12.9 Seconds (9.0-12.0) H 12/11/21 21:47 INR 1.2 (0.9-1.1) H 12/11/21 21:47 APTT 28.5 Seconds (21.0-31.0) 12/11/21 21:47 PTT Ratio 1.0 12/11/21 21:47 Sodium 133 mmol/L (136-145) L 12/11/21 21:47 Potassium 4.1 mmol/L (3.5-5.1) 12/11/21 21:47 Chloride 99 mmol/L (98-107) 12/11/21 21:47 Carbon Dioxide 26 mmol/L (21-32) 12/11/21 21:47 Anion Gap 8 (3-11) 12/11/21 21:47 BUN 64 mg/dl (6-23) H 12/11/21 21:47 Creatinine 1.73 mg/dl (0.6-1.2) H 12/11/21 21:47 Est Cr Clr Drug Dosing 32.2 ml/min 12/11/21 21:47 Est GFR ( Amer) 32.0 ml/min 12/11/21 21:47 Est GFR (Non-Af Amer) 27.6 ml/min 12/11/21 21:47 BUN/Creatinine Ratio 37.0 (10-20) H 12/11/21 21:47 Glucose 189 mg/dl (70-99(Fasting)) H 12/11/21 21:47 Lactate 1.1 mmol/L (0.4-2.0) 12/11/21 21:47 Calcium 8.5 mg/dl (8.5-10.1) 12/11/21 21:47 Magnesium 1.8 mg/dl (1.7-2.4) 12/11/21 21:47 Total Bilirubin 1.4 mg/dl (0.2-1.0) H 12/11/21 21:47 AST 9 U/L (13-39) L 12/11/21 21:47 ALT 12 U/L (7-52) 12/11/21 21:47 Alkaline Phosphatase 91 U/L (34-104) 12/11/21 21:47 Troponin I High Sens 24.1 pg/ml (0-14) H D 12/11/21 21:47 B-Natriuretic Peptide 569 pg/ml (0-100) H 12/11/21 21:47 Total Protein 5.6 gm/dl (6.0-8.3) L 12/11/21 21:47 Albumin 3.7 gm/dl (3.4-5.0) 12/11/21 21:47 Globulin 1.9 gm/dl (2.5-4.0) L 12/11/21 21:47 Albumin/Globulin Ratio 1.9 (0.9-2) 12/11/21 21:47 TSH 6.129 uIu/ml (0.300-4.500) H 12/11/21 21:47 Free T4 0.75 ng/dl (0.61-1.60) 12/11/21 21:47 Urine Color Yellow 12/11/21 22:45 Urine Appearance Clear (Clear) 12/11/21 22:45 Urine pH 5.0 (4.5-7.5) 12/11/21 22:45 Ur Specific [place] 1.014 (1.000-1.030) 12/11/21 22:45 Urine Protein Negative (Negative) 12/11/21 22:45 Urine Glucose (UA) Negative (Negative) 12/11/21 22:45 Urine Ketones Negative (Negative) 12/11/21 22:45 Urine Blood Trace (Negative) H 12/11/21 22:45 Urine Nitrite Negative (Negative) 12/11/21 22:45 Urine Bilirubin Negative (Negative) 12/11/21 22:45 Urine Urobilinogen Negative (Negative) 12/11/21 22:45 Ur Leukocyte Esterase Negative (Negative) 12/11/21 22:45 Urine WBC (Auto) 1-5 /hpf (0-5) 12/11/21 22:45 Urine RBC (Auto) 0-4 /hpf (0-4) 12/11/21 22:45 U Hyaline Cast (Auto) 0 /lpf (0-5) 12/11/21 22:45 U Epithel Cells (Auto) 0-5 /lpf (0-5) 12/11/21 22:45 Urine Bacteria (Auto) Negative (Negative) 12/11/21 22:45 SARS-CoV-2 (PCR) NEGATIVE (Negative) 12/11/21 22:20 Influenza Type A (PCR) Negative (Neg) 12/11/21 22:20 Influenza Type B (PCR) Negative (Neg) 12/11/21 22:20 RSV (RT-PCR) Negative (Neg) 12/11/21 22:20 Diagnostic Findings Chest x-ray as per my interpretation congestion, cardiomegaly, right pleural effusion EKG as per my interpretation : Rate 95, A. fib, normal axis, diffuse T wave flattening, low voltage
[2021-12-12] MEDS ORDERED: ALBUMIN 25% 12.5 GM/50 ML VIAL IV STA (00:20)
[2021-12-12 01:20] LABS: Base Excess ABG 4.1 mEq/L (-9-1.8); HCO3 ABG 27 mmol/L (19-24); Oxygen Saturation ABG 99.3 % (90-95); PCO2 ABG 36 mmHg (35-46); PO2 ABG 183 mmHg (80-95); pH ABG 7.49 (7.35-7.45)
[2021-12-12 01:30] LABS: Allen Test POS (Pos)
[2021-12-12] MEDS ORDERED: PROMETHAZINE HCL 12.5 MG in SODIUM CHLORIDE 0.9% 50 ML IV PRN (01:33)
[2021-12-12] MEDS ORDERED: GLUCOSE 40% GEL 15 GM TUBE PO PRN (01:33)
[2021-12-12] MEDS ORDERED: CARBOHYDRATES FOR HYPOGLYCEMIA PO PRN (01:33)
[2021-12-12] MEDS ORDERED: DEXTROSE 50% 50 ML SYRINGE IV PRN (01:33)
[2021-12-12] MEDS ORDERED: GLUCAGON FOR INJ 1 MG VIAL SQ PRN (01:33)
[2021-12-12] MEDS ORDERED: GLUCOSE 10 TABS/TUBE PO PRN (01:33)
[2021-12-12] MEDS ORDERED: NITROGLYCERIN SL 0.4 MG/TAB TAB SL PRN (01:33)
[2021-12-12] MEDS ORDERED: INSULIN ASPART PER UNIT SC SCH (01:33)
[2021-12-12] MEDS ORDERED: ALBUMIN 25% 12.5 GM/50 ML VIAL IV ONE ×2 (03:04→08:00)
[2021-12-12] MEDS ORDERED: DIGOXIN 250 MCG in SYRINGE 9 ML IV ONE (03:30)
[2021-12-12] MEDS: LANTUS PER UNIT CHARGE SC SCH ×2 (03:59→21:10)
[2021-12-12] MEDS: METOPROLOL SUCC 50MG EXT REL TAB PO SCH ×2 (05:00→21:12)
[2021-12-12 06:35] LABS: BUN Creatinine Ratio 36.2 (10-20); Calcium 8.3 mg/dl (8.5-10.1); Creatinine Clr Calc Pharmacy 28.7 ml/min; Est GFR (African American) 31.8 ml/min; Est GFR (Non-African American) 27.4 ml/min
[2021-12-12 06:36] LABS: ALC (manual) 0.27 K/uL (1.2-3.4); ANC (manual) 9.91 K/uL (1.4-6.5); Hemoglobin 7.2 g/dL (12.0-16.0); Lymphocytes # (manual) 0.27 K/uL (1.2-3.4); Lymphocytes % (manual) 2.6 %; Mean Corpuscular Hemoglobin 28.6 pg (25-34); Mean Corpuscular Hgb Conc 32.7 g/dL (32-36); Mean Corpuscular Volume 87.3 fL (80-100); Monocytes # (manual) 0.18 K/uL (0.11-0.59); Monocytes % (manual) 1.7 %; Neutrophils # (manual) 9.91 K/uL (1.4-6.5); Neutrophils % (manual) 95.7 %; Platelet Count 18 K/uL (130-400); Platelet Estimate SIGNIFIC DECREASED (Normal); RBC Morphology Unremarkable; RDW Coefficient of Variation 15.4 % (11.5-14.5); RDW Standard Deviation 48.9 fL (36.4-46.3); Red Blood Count 2.52 M/uL (4.2-5.4); White Blood Count 10.36 K/uL (4.8-10.8)
--- NOTE | 2021-12-12 07:57 | XRay Report ---
XR chest 1V portable CLINICAL HISTORY: weakness. Shortness of breath. COMPARISON STUDY: Chest CT August 05, 2021. Chest radiograph November 24, 2021. FINDINGS: There is no pneumothorax. Cardiomegaly is again noted. Moderate right pleural effusion with right basilar opacity persists. Airspace opacity has slightly improved. There is persistent pulmonar y edema. Mild left basilar opacity is present. IMPRESSION: Cardiomegaly with persistent pulmonary edema and a moderate right pleural effusion. ACT 112: Negative or not required by law. Electronically signed by: Destin Gandara M.D. 12/12/2021 7:56 AM
[2021-12-12] MEDS ORDERED: FUROSEMIDE 40 MG/4 ML VIAL IV ONE (08:00)
[2021-12-12] MEDS: PANTOprazole 40 MG TAB PO SCH ×2 (08:39→08:42)
[2021-12-12] MEDS: ATORVASTATIN 20 MG TAB PO SCH (08:42)
[2021-12-12] MEDS: dilTIAZem HCL 240 MG CAPCR PO SCH (08:42)
[2021-12-12] MEDS: allopurinoL 300 MG TAB PO SCH (08:42)
[2021-12-12] MEDS: ESCITALOPRAM OXALATE 10 MG TAB PO SCH (08:43)
[2021-12-12] MEDS: DOCUSATE SODIUM 100 MG CAP PO SCH ×2 (08:43→21:11)
[2021-12-12] MEDS: predniSONE 5 MG TAB PO SCH (08:43)
[2021-12-12] MEDS ORDERED: METOPROLOL TARTRATE 1 MG/ML VIAL IV PRN (08:58)
[2021-12-12] MEDS: INSULIN ASPART PER UNIT SC SCH ×4 (08:59→21:10)
[2021-12-12] MEDS ORDERED: METOPROLOL SUCC 50MG EXT REL TAB PO SCH (09:00)
[2021-12-12] MEDS ORDERED: LANTUS PER UNIT CHARGE SC SCH (09:00)
--- NOTE | 2021-12-12 09:24 | Electrocardiogram Report ---
Test Reason : Blood Pressure : / mmHG Vent. 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
--- NOTE | 2021-12-12 15:21 | Electrocardiogram Report ---
Test Reason : Blood Pressure : / mmHG Vent. 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
--- NOTE | 2021-12-12 16:45 | Hospitalist Progress Note ---
Date of Service December 12, 2021 Assessment & Plan (1) Acute hypoxemic respiratory failure: Plan: Acute hypoxic respiratory failure Acute on chronic diastolic CHF H/O Diastolic dysfunction, Pulmonary hypertension Valvular Heart Disease Received fluid overload from bolus given [facility] due to low blood pressure --CXR:Cardiomegaly with persistent pulmonary edema and a moderate right pleural effusion. --Echo on 11/11/2021: EF: 60-65%, mild concentric LVH, aortic valve sclerosis without stenosis, mild AR, mild to moderate MR, moderate TR Received IV Lasix Resume home diuretics--bumetanide, spironolactone Monitor I's and O's, daily weight Continue supplemental oxygen as needed May need 2 step prior to discharge Cariology consulted ALIX on CKD III ? Cardiorenal syndrome Troponin elevation likely demand ischemia due to ALIX, CHF Monitor renal function Avoid nephrotoxic agents as able Atrial fibrillation RVR Currently not on anticoagulation due to bleeding risk given pancytopenia/MDS/Ongoing chemotherapy Continue Cardizem, metoprolol IV Lopressor PRN Cardiology Consulted Hyperlipidemia on statin Endometrial cancer S/P surgery Left breast cancer S/P surgery, chemotherapy, tamoxifen Rx Pancytopenia /MDS Follows with Had multiple transfusions previously Monitor CBC DM II HbA1C:7.14 Oct 2021 Continue Insulin Monitor BGs Inflammatory arthritis on chronic steroid Rx Continue Prednisone DVT Px: SCDs Re: Thrombocytopenia Code Status Full code Disposition PT/OT prior to discharge Admission and Anticipated Discharge Date Admission Date: December 12, 2021 Subjective Patient is seen and examined at bedside States feeling better today Dyspnea slowly improving Denies any chest pain, dizziness, nausea, abdominal pain On 2 L supplemental oxygen Offers no other complaints Review of Systems Review of Systems: All systems reviewed & are unremarkable except as noted in Subjective Physical Exam Physical Exam: Physical Exam: Vitals signs as noted above General Appearance:Obese, no apparent distress, Elderly Head: normocephalic, Atraumatic Eyes: normal inspection, EOMI Neck: supple, Trachea midline Respiratory/Chest: Normal breath sounds, CTA, No accessory muscle use Cardiovascular: Irregularly irregular, No murmur Abdomen/GI:Soft, Non tender, Bowel sounds present Extremities/Musculoskeletal:normal inspection, 2+ B/L LE edema Neurologic/Psych:AAOX3, grossly no focal neurological deficits Skin: normal color, warm Results & Data Results & Data ([facility]) Vital Signs (Past 12 Hours) Vital Signs Temp Pulse Pulse Resp BP Pulse Ox Pulse Ox 12/12/21 16:00 96 12/12/21 14:52 86 12/12/21 12:24 36.8 C 96 H 17 112/64 99 12/12/21 08:00 98 12/12/21 07:54 117 H Laboratory Results Short CBC 12/11/21 12/12/21 Range/Units 21:47 05:39 WBC 8.13 10.36 (4.8-10.8) K/uL Hgb 7.8 L 7.2 L (12.0-16.0) g/dL Hct 23.3 L 22.0 L (37-47) % Plt Count 14 L* 18 L* (130-400) K/uL BMP 12/11/21 12/12/21 21:47 05:39 Sodium 133 L 134 L Potassium 4.1 4.0 Chloride 99 99 Carbon Dioxide 26 25 BUN 64 H 63 H Creatinine 1.73 H 1.74 H Glucose 189 H 223 H Calcium 8.5 8.3 L Liver Function 12/11/21 Range/Units 21:47 Total Bilirubin 1.4 H (0.2-1.0) mg/dl AST 9 L (13-39) U/L ALT 12 (7-52) U/L Alkaline Phosphatase 91 (34-104) U/L Albumin 3.7 (3.4-5.0) gm/dl Urine 12/11/21 Range/Units 22:45 Urine Color Yellow Urine Appearance Clear (Clear) Urine pH 5.0 (4.5-7.5) Ur Specific [place] 1.014 (1.000-1.030) Urine Protein Negative (Negative) Urine Glucose (UA) Negative (Negative)
[2021-12-12] MEDS: SPIRONOLACTONE 25 MG TAB PO SCH (17:35)
--- NOTE | 2021-12-12 17:50 | Cardiology Consultation ---
Date of Consultation December 12, 2021 Assessment & Plan (1) Acute hypoxemic respiratory failure: (2) Heart failure with preserved ejection fraction: (3) Pulmonary hypertension: (4) A-fib: 1. Dyspnea: Likely related to pulmonary vascular congestion. She is known to be anemic and she has an element of pulmonary hypertension as well. However, she did receive some IV fluids at the oncology center and her symptoms started shortly thereafter. She otherwise been doing well recently on a daily dose of diuretic. She did affect some diuresis over the past 24 hours her symptoms have improved. Her lung examination is still abnormal. I think we can resume her usual outpatient regimen. Renal function has declined somewhat, but I think we will need to accept some decline in order to avoid recurrent pulmonary congestion. 2. Heart failure with preserved ejection fraction: She is on bumetanide and spironolactone. There has been talk about adding Jardiance as an outpatient. I do not think this would improve her acute circumstance. 3. Pulmonary hypertension: Possibly related to her diastolic dysfunction. Nonetheless, she has an element of right ventricular failure as well. This resulted in significant peripheral edema. She may be somewhat preload dependent which complicates treatment of her left-sided failure. 4. Atrial fibrillation: Her heart rates have improved since her hospitalization. This is likely due to improvement in her overall clinical condition and reduction in pulmonary vascular congestion. There has been a lot of confusion about her doses of diltiazem, digoxin and metoprolol over the past several months. She was actually admitted on 2 occasions once with bradycardia and once with tachycardia due to confusion and her medications. Her outpatient regimen suggest that she takes over 100 mg of metoprolol succinate daily. The patient feels that she only takes 25 mg of metoprolol succinate daily. Currently on anticoagulation due to her severe thrombocytopenia and anemia. History of Present Illness Reason for Consultation: Shortness of breath Requesting Physician: Ana Attending Physician: Roger Ca MD History of Present Illness The patient is a 81-year-old woman recently discharged from the hospital after an extended stay for dyspnea and jaw pain. She had been discharged to [facility] and had been progressing to the point where she was released to go home. Patient states that her ambulation had improved and her breathing was at baseline at the time of her discharge. Yesterday she presented for her routine evaluation at the cancer center. She apparently had some low blood pressures and was administered some IV fluid she was sent home but later that evening began to feel significantly short of breath and overall weak. She presented to the hospital where she was felt to have pulmonary vascular congestion. She was given intravenous diuretics and BiPAP treatment was initiated. This improved some of her symptoms. This morning she was also administered another dose of diuretic. The time my interview the patient states that she is feeling well. She does not report dyspnea currently. She has not been ambulatory around her room and she does not have a walker or assistance. Allergies Allergy/AdvReac Type Severity Reaction Status Date / Time hydrocodone Allergy Mild UNKNOWN Verified 12/11/21 22:01 "HAPPENED LONG TIME AGO" phenol Allergy Mild LOCALIZED Verified 12/11/21 22:01 RASH AT INJECTION SITE protamine Allergy Mild LOCALIZED Verified 12/11/21 22:01 RASH AT INJECTION SITE sodium phosphate Allergy Mild LOCALIZED Verified 12/11/21 22:01 RASH AT INJECTION SITE zinc Allergy Mild LOCALIZED Verified 12/11/21 22:01 RASH AT INJECTION SITE hydroxychloroquine AdvReac Mild "BURPED Verified 12/11/21 22:01 FOR DAYS AND TORE MY STOMACH UP" Home Medications Medication Instructions Recorded Confirmed Type allopurinol 300 mg tablet 300 mg PO DAILY 10/15/21 12/11/21 History bumetanide 1 mg tablet 2 mg PO BID 10/15/21 12/11/21 History diltiazem HCl 240 mg 240 mg PO DAILY 10/15/21 12/11/21 History capsule,extended release 24 hr escitalopram oxalate 10 mg tablet 10 mg PO DAILY 10/15/21 12/11/21 History loratadine 10 mg tablet 10 mg PO DAILY 10/15/21 12/11/21 History prednisone 5 mg tablet 5 mg PO DAILY 10/15/21 12/11/21 History insulin aspar prot-insulin aspart 28 unit SUBCUT QDD 10/17/21 12/12/21 History 100 unit/mL (70-30) subcutaneous pen (Novolog Mix 70-30FlexPen U-100) atorvastatin 20 mg tablet 20 mg PO DAILY 11/15/21 12/11/21 History magnesium oxide 400 mg (241.3 mg 400 mg PO DAILY #0 tab 11/27/21 12/11/21 Rx magnesium) tablet acetaminophen 500 mg capsule 1,000 mg PO Q8H PRN cap 12/10/21 12/11/21 History docusate sodium 100 mg capsule 100 mg PO BID 12/10/21 12/11/21 History pantoprazole 40 mg tablet,delayed 40 mg PO DAILY 12/10/21 12/11/21 History release spironolactone 25 mg tablet 50 mg PO DAILY tab 12/10/21 12/11/21 History metoprolol succinate 100 mg 100 mg PO QAM 12/11/21 12/11/21 History tablet,extended release 24 hr metoprolol succinate 50 mg 50 mg PO QPM 12/11/21 12/11/21 History tablet,extended release 24 hr rabeprazole 20 mg tablet,delayed 20 mg PO QAM 12/11/21 12/11/21 History release insulin NPH isoph U-100 human 100 See Rx Instructions .ROUTE .COMPLEX 12/12/21 12/12/21 History unit/mL (3 mL) subcutaneous pen Patient History Medical History (Updated 12/12/21 @ 17:46 by Alejandro Lyn MD) A-fib Acute hyperkalemia Acute hypokalemia Bradycardia CKD (chronic kidney disease), stage III Diabetes Elevated troponin I level GI bleed Hx of pneumococcal pneumonia Hypertension Hypomagnesemia Insulin dependent diabetes mellitus Malignant neoplasm of central portion of female breast (10/01/11) "Left breast pain Finding of a left breast mass Status post biopsy revealing infiltrating ductal carcinoma Status post partial mastectomy and sentinel lymph node biopsy Pathologic stage [id number] Estrogen receptor positive, progesterone receptor positive, HER-2/abelardo negative Status post completion of radiation therapy 04/08/2012 received 6120 cGy" Myelodysplastic syndrome with 5 q minus Surgical History History of hysterectomy History of lumpectomy Hx of cholecystectomy Family History Other Cancer Diabetes Social History Smoking Status: Never smoker Second Hand Exposure: No; Do You Dip or Chew Tobacco: No; Tobacco Cessation Education Requested by Patient: No Hx Alcohol Use: No Hx Substance Use: No Preferred Language: Arabic Communication Ability: Effective [employer] Required: No Beliefs That Will Affect Care: None marital status: / Current Living Situation: Alone How many Children do You have: 3 Other Information That Helps Us Care for You: No Feels Safe at Home: Yes Safety Concerns: Feels Safe At This Time Assistive Devices: Glasses and Walker Review of Systems Review of Systems: Per HPI Physical Exam Physical Exam: She is alert and oriented x3. Mood affect appear normal. She answered all questions appropriately. HEENT: Sclerae are anicteric. Pupils are equal and reactive to light and accommodation. Extraocular movements were intact. Neuro: Cranial nerves intact Lungs: Reduced breath sounds at the right base with crackles in the midlung field. Crackles at the base on the left left. No expiratory wheezing. Normal respiratory effort. Cardiac: The rhythm was irregular. S1 and S2 were normal. The PMI was not markedly displaced on palpation. Abdomen: Obese Extremities: Patient has bilateral radial pulses that are equal in intensity. There is no evidence cyanosis or clubbing. Moderate bilateral lower extremity edema Skin: There are no rashes noted on examination today. Results & Data ([facility]) Vital Signs (Past 12 Hours) Vital Signs Temp Pulse Pulse Resp BP Pulse Ox Pulse Ox 12/12/21 16:06 36.5 C 94 H 19 103/50 L 98 12/12/21 16:00 96 12/12/21 14:52 86 12/12/21 12:24 36.8 C 96 H 17 112/64 99 12/12/21 08:00 98 12/12/21 07:54 117 H Laboratory Results Abnormal Lab Results 12/11/21 12/11/21 12/11/21 21:47 21:47 21:47 WBC 8.13 RBC 2.64 L Hgb 7.8 L Hct 23.3 L MCV 88.3 MCH 29.5 MCHC 33.5 RDW Std Deviation 49.4 H RDW Coeff of Griffin 15.3 H Plt Count 14 L* Immature Gran % (Auto) 0.7 Neut % (Auto) 90.2 Lymph % (Auto) 3.8 [place] % (Auto) 5.2 Eos % (Auto) 0.0 Baso % (Auto) 0.1 Neut # (Auto) 7.33 H Lymph # (Auto) 0.31 L [place] # (Auto) 0.42 Eos # (Auto) 0.00 Baso # (Auto) 0.01 Immature Gran # (Auto) 0.06 H Neutrophils % (Manual) Lymphocytes % (Manual) Monocytes % (Manual) Neutrophils # (Manual) Total Absolute Neuts Lymphocytes # (Manual) Total Abs Lymphocytes Monocytes # (Manual) Hypogranular Neuts 3+ Platelet Estimate RBC Morphology PT 12.9 H INR 1.2 H APTT 28.5 PTT Ratio 1.0 ABG pH ABG pCO2 ABG pO2 ABG HCO3 ABG O2 Saturation ABG Base Excess Ted Test Oxygen Given Sodium 133 L Potassium 4.1 Chloride 99 Carbon Dioxide 26 Anion Gap 8 BUN 64 H Creatinine 1.73 H Est Cr Clr Drug Dosing 32.2 Est GFR ( Amer) 32.0 Est GFR (Non-Af Amer) 27.6 BUN/Creatinine Ratio 37.0 H Glucose 189 H POC Glucose Lactate Calcium 8.5 Magnesium 1.8 Total Bilirubin 1.4 H AST 9 L ALT 12 Alkaline Phosphatase 91 Troponin I High Sens 24.1 H D B-Natriuretic Peptide Total Protein 5.6 L Albumin 3.7 Globulin 1.9 L Albumin/Globulin Ratio 1.9 TSH Free T4 Urine Color Urine Appearance Urine pH Ur Specific [place] Urine Protein Urine Glucose (UA) Urine Ketones Urine Blood Urine Nitrite Urine Bilirubin Urine Urobilinogen Ur Leukocyte Esterase Urine WBC (Auto) Urine RBC (Auto) U Hyaline Cast (Auto) U Epithel Cells (Auto) Urine Bacteria (Auto) Nasal Screen MRSA (PCR) SARS-CoV-2 (PCR) Influenza Type A (PCR) Influenza Type B (PCR) RSV (RT-PCR) 12/11/21 12/11/21 12/11/21 21:47 21:47 21:47 WBC RBC Hgb Hct MCV MCH MCHC RDW Std Deviation RDW Coeff of Griffin Plt Count Immature Gran % (Auto) Neut % (Auto) Lymph % (Auto) [place] % (Auto) Eos % (Auto) Baso % (Auto) Neut # (Auto) Lymph # (Auto) [place] # (Auto) Eos # (Auto) Baso # (Auto) Immature Gran # (Auto) Neutrophils % (Manual) Lymphocytes % (Manual) Monocytes % (Manual) Neutrophils # (Manual) Total Absolute Neuts Lymphocytes # (Manual) Total Abs Lymphocytes Monocytes # (Manual) Hypogranular Neuts Platelet Estimate RBC Morphology PT INR APTT PTT Ratio ABG pH ABG pCO2 ABG pO2 ABG HCO3 ABG O2 Saturation ABG Base Excess Ted Test Oxygen Given Sodium Potassium Chloride Carbon Dioxide Anion Gap BUN Creatinine Est Cr Clr Drug Dosing Est GFR ( Amer) Est GFR (Non-Af Amer) BUN/Creatinine Ratio Glucose POC Glucose Lactate 1.1 Calcium Magnesium Total Bilirubin AST ALT Alkaline Phosphatase Troponin I High Sens B-Natriuretic Peptide 569 H Total Protein Albumin Globulin Albumin/Globulin Ratio TSH 6.129 H Free T4 0.75 Urine Color Urine Appearance Urine pH Ur Specific [place] Urine Protein Urine Glucose (UA) Urine Ketones Urine Blood Urine Nitrite Urine Bilirubin Urine Urobilinogen Ur Leukocyte Esterase Urine WBC (Auto) Urine RBC (Auto) U Hyaline Cast (Auto) U Epithel Cells (Auto) Urine Bacteria (Auto) Nasal Screen MRSA (PCR) SARS-CoV-2 (PCR) Influenza Type A (PCR) Influenza Type B (PCR) RSV (RT-PCR) 12/11/21 12/11/21 12/12/21 22:20 22:45 00:52 WBC RBC Hgb Hct MCV MCH MCHC RDW Std Deviation RDW Coeff of [place] Plt Count Immature Gran % (Auto) Neut % (Auto) Lymph % (Auto) [place] % (Auto) Eos % (Auto) Baso % (Auto) Neut # (Auto) Lymph # (Auto) [place] # (Auto) Eos # (Auto) Baso # (Auto) Immature Gran # (Auto) Neutrophils % (Manual) Lymphocytes % (Manual) Monocytes % (Manual) Neutrophils # (Manual) Total Absolute Neuts Lymphocytes # (Manual) Total Abs Lymphocytes Monocytes # (Manual) Hypogranular Neuts Platelet Estimate RBC Morphology PT INR APTT PTT Ratio ABG pH ABG pCO2 ABG pO2 ABG HCO3 ABG O2 Saturation ABG Base Excess Ted Test Oxygen Given Sodium Potassium Chloride Carbon Dioxide Anion Gap BUN Creatinine Est Cr Clr Drug Dosing Est GFR ( Amer) Est GFR (Non-Af Amer) BUN/Creatinine Ratio Glucose POC Glucose Lactate Calcium Magnesium Total Bilirubin AST ALT Alkaline Phosphatase Troponin I High Sens 23.1 H B-Natriuretic Peptide Total Protein Albumin Globulin Albumin/Globulin Ratio TSH Free T4 Urine Color Yellow Urine Appearance Clear Urine pH 5.0 Ur Specific [place] 1.014 Urine Protein Negative Urine Glucose (UA) Negative Urine Ketones Negative Urine Blood Trace H Urine Nitrite Negative Urine Bilirubin Negative Urine Urobilinogen Negative Ur Leukocyte Esterase Negative Urine WBC (Auto) 1-5 Urine RBC (Auto) 0-4 U Hyaline Cast (Auto) 0 U Epithel Cells (Auto) 0-5 Urine Bacteria (Auto) Negative Nasal Screen MRSA (PCR) SARS-CoV-2 (PCR) NEGATIVE Influenza Type A (PCR) Negative Influenza Type B (PCR) Negative RSV (RT-PCR) Negative 12/12/21 12/12/21 12/12/21 00:52 01:42 04:50 WBC RBC Hgb Hct MCV MCH MCHC RDW Std Deviation RDW Coeff of Griffin Plt Count Immature Gran % (Auto) Neut % (Auto) Lymph % (Auto) [place] % (Auto) Eos % (Auto) Baso % (Auto) Neut # (Auto) Lymph # (Auto) [place] # (Auto) Eos # (Auto) Baso # (Auto) Immature Gran # (Auto) Neutrophils % (Manual) Lymphocytes % (Manual) Monocytes % (Manual) Neutrophils # (Manual) Total Absolute Neuts Lymphocytes # (Manual) Total Abs Lymphocytes Monocytes # (Manual) Hypogranular Neuts Platelet Estimate RBC Morphology PT INR APTT PTT Ratio ABG pH 7.49 H ABG pCO2 36 ABG pO2 183 H ABG HCO3 27 H ABG O2 Saturation 99.3 H ABG Base Excess 4.1 H Ted Test POS Oxygen Given 4 Sodium Potassium Chloride Carbon Dioxide Anion Gap BUN Creatinine Est Cr Clr Drug Dosing Est GFR ( Amer) Est GFR (Non-Af Amer) BUN/Creatinine Ratio Glucose POC Glucose 238 H Lactate Calcium Magnesium Total Bilirubin AST ALT Alkaline Phosphatase Troponin I High Sens B-Natriuretic Peptide Total Protein Albumin Globulin Albumin/Globulin Ratio TSH Free T4 Urine Color Urine Appearance Urine pH Ur Specific [place] Urine Protein Urine Glucose (UA) Urine Ketones Urine Blood Urine Nitrite Urine Bilirubin Urine Urobilinogen Ur Leukocyte Esterase Urine WBC (Auto) Urine RBC (Auto) U Hyaline Cast (Auto) U Epithel Cells (Auto) Urine Bacteria (Auto) Nasal Screen MRSA (PCR) Negative SARS-CoV-2 (PCR) Influenza Type A (PCR) Influenza Type B (PCR) RSV (RT-PCR) 12/12/21 12/12/21 12/12/21 05:39 05:39 07:06 WBC 10.36 RBC 2.52 L Hgb 7.2 L Hct 22.0 L MCV 87.3 MCH 28.6 MCHC 32.7 RDW Std Deviation 48.9 H RDW Coeff of [place] 15.4 H Plt Count 18 L* Immature Gran % (Auto) Neut % (Auto) Lymph % (Auto) [place] % (Auto) Eos % (Auto) Baso % (Auto) Neut # (Auto) Lymph # (Auto) [place] # (Auto) Eos # (Auto) Baso # (Auto) Immature Gran # (Auto) Neutrophils % (Manual) 95.7 Lymphocytes % (Manual) 2.6 Monocytes % (Manual) 1.7 Neutrophils # (Manual) 9.91 H Total Absolute Neuts 9.91 H Lymphocytes # (Manual) 0.27 L Total Abs Lymphocytes 0.27 L Monocytes # (Manual) 0.18 Hypogranular Neuts Platelet Estimate SIGNIFIC DECREASED RBC Morphology Unremarkable PT INR APTT PTT Ratio ABG pH ABG pCO2 ABG pO2 ABG HCO3 ABG O2 Saturation ABG Base Excess Ted Test Oxygen Given Sodium 134 L Potassium 4.0 Chloride 99 Carbon Dioxide 25 Anion Gap 10 BUN 63 H Creatinine 1.74 H Est Cr Clr Drug Dosing 28.7 Est GFR ( Amer) 31.8 Est GFR (Non-Af Amer) 27.4 BUN/Creatinine Ratio 36.2 H Glucose 223 H POC Glucose 242 H Lactate Calcium 8.3 L Magnesium Total Bilirubin AST ALT Alkaline Phosphatase Troponin I High Sens B-Natriuretic Peptide Total Protein Albumin Globulin Albumin/Globulin Ratio TSH Free T4 Urine Color Urine Appearance Urine pH Ur Specific [place] Urine Protein Urine Glucose (UA) Urine Ketones Urine Blood Urine Nitrite Urine Bilirubin Urine Urobilinogen Ur Leukocyte Esterase Urine WBC (Auto) Urine RBC (Auto) U Hyaline Cast (Auto) U Epithel Cells (Auto) Urine Bacteria (Auto) Nasal Screen MRSA (PCR) SARS-CoV-2 (PCR) Influenza Type A (PCR) Influenza Type B (PCR) RSV (RT-PCR) 12/12/21 12/12/21 11:07 16:22 WBC RBC Hgb Hct MCV MCH MCHC RDW Std Deviation RDW Coeff of [place] Plt Count Immature Gran % (Auto) Neut % (Auto) Lymph % (Auto) [place] % (Auto) Eos % (Auto) Baso % (Auto) Neut # (Auto) Lymph # (Auto) [place] # (Auto) Eos # (Auto) Baso # (Auto) Immature Gran # (Auto) Neutrophils % (Manual) Lymphocytes % (Manual) Monocytes % (Manual) Neutrophils # (Manual) Total Absolute Neuts Lymphocytes # (Manual) Total Abs Lymphocytes Monocytes # (Manual) Hypogranular Neuts Platelet Estimate RBC Morphology PT INR APTT PTT Ratio ABG pH ABG pCO2 ABG pO2 ABG HCO3 ABG O2 Saturation ABG Base Excess Ted Test Oxygen Given Sodium Potassium Chloride Carbon Dioxide Anion Gap BUN Creatinine Est Cr Clr Drug Dosing Est GFR ( Amer) Est GFR (Non-Af Amer) BUN/Creatinine Ratio Glucose POC Glucose 246 H 297 H Lactate Calcium Magnesium Total Bilirubin AST ALT Alkaline Phosphatase Troponin I High Sens B-Natriuretic Peptide Total Protein Albumin Globulin Albumin/Globulin Ratio TSH Free T4 Urine Color Urine Appearance Urine pH Ur Specific [place] Urine Protein Urine Glucose (UA) Urine Ketones Urine Blood Urine Nitrite Urine Bilirubin Urine Urobilinogen Ur Leukocyte Esterase Urine WBC (Auto) Urine RBC (Auto) U Hyaline Cast (Auto) U Epithel Cells (Auto) Urine Bacteria (Auto) Nasal Screen MRSA (PCR) SARS-CoV-2 (PCR) Influenza Type A (PCR) Influenza Type B (PCR) RSV (RT-PCR) Diagnostic Findings Chest x-ray obtained at the time admission revealed a right pleural effusion and pulmonary vascular congestion. This is consistent with her old evaluations. ECG Additional Comments: EKG obtained at the time admission revealed atrial fibrillation controlled ventricular response PG Care Time/CCT Total # of Minutes Spent Total Time Spent with Patient: Total time spent is greater than 50% in coordination of care (as documented) at patient's floor/unit and/or counseling patient: Coding Level of Care Code 99246 Initial Inpt Care Lvl 3 Diagnoses Acute hypoxemic respiratory failure J96.01 Heart failure with preserved ejection fraction I50.30 Pulmonary hypertension I27.20 A-fib I48.91 Atrial fibrillation type: unspecified (1) A-fib Atrial fibrillation type: unspecified Qualified Code(s): I48.91 - Unspecified atrial fibrillation
[2021-12-12] MEDS: BUMETANIDE 1 MG TAB PO SCH (21:11)
[2021-12-13] MEDS: ACETAMINOPHEN 500 MG TAB PO PRN ×3 (02:11→20:59)
[2021-12-13 06:12] LABS: Platelet Count 15 K/uL (130-400)
[2021-12-13 06:14] LABS: Hematocrit (blood only) 19.6 % (37-47); Hemoglobin 6.5 g/dL (12.0-16.0); Mean Corpuscular Hemoglobin 29.1 pg (25-34); Mean Corpuscular Volume 87.9 fL (80-100); RDW Coefficient of Variation 15.3 % (11.5-14.5); RDW Standard Deviation 49.4 fL (36.4-46.3); Red Blood Count 2.23 M/uL (4.2-5.4); White Blood Count 5.56 K/uL (4.8-10.8)
[2021-12-13] MEDS ORDERED: SODIUM CHLORIDE 0.9% 250 ML IV PRN ×2 (06:23→07:42)
[2021-12-13 06:28] LABS: BUN Creatinine Ratio 36.2 (10-20); Calcium 8.4 mg/dl (8.5-10.1); Creatinine Clr Calc Pharmacy 26.5 ml/min; Est GFR (African American) 28.9 ml/min; Magnesium 2.1 mg/dl (1.7-2.4); Mean Corpuscular Hgb Conc 33.2 g/dL (32-36); Platelet Estimate SIGNIFIC DECREASED (Normal); Potassium 4.3 mmol/L (3.5-5.1)
[2021-12-13] MEDS: predniSONE 5 MG TAB PO SCH (07:21)
[2021-12-13] MEDS: METOPROLOL SUCC 50MG EXT REL TAB PO SCH ×2 (07:22→21:00)
[2021-12-13] MEDS: ATORVASTATIN 20 MG TAB PO SCH (07:22)
[2021-12-13] MEDS: ESCITALOPRAM OXALATE 10 MG TAB PO SCH (07:22)
[2021-12-13] MEDS: allopurinoL 300 MG TAB PO SCH (07:22)
[2021-12-13] MEDS: dilTIAZem HCL 240 MG CAPCR PO SCH (07:22)
[2021-12-13] MEDS: SPIRONOLACTONE 25 MG TAB PO SCH (07:23)
[2021-12-13] MEDS: DOCUSATE SODIUM 100 MG CAP PO SCH ×2 (07:23→21:00)
[2021-12-13] MEDS: BUMETANIDE 1 MG TAB PO SCH (07:23)
[2021-12-13] MEDS: PANTOprazole 40 MG TAB PO SCH ×2 (07:37)
[2021-12-13] MEDS: INSULIN ASPART PER UNIT SC SCH ×4 (08:05→20:59)
[2021-12-13] MEDS: LANTUS PER UNIT CHARGE SC SCH ×2 (08:08→21:00)
--- NOTE | 2021-12-13 10:50 | Cardiology Progress Note ---
Date of Service December 13, 2021 Assessment & Plan (1) Acute hypoxemic respiratory failure: (2) Heart failure with preserved ejection fraction: (3) Pulmonary hypertension: (4) A-fib: Plan: 1. Dyspnea: she continues to have an element of dyspnea. While she appears to have some pulmonary vascular congestion, she clearly is more anemic today. 2. Heart failure with preserved ejection fraction: She was diuresed fairly aggressively yesterday. Her renal function is declining suggesting an element of intravascular depletion. Her situation is difficult in that she has pulmonary hypertension an element of right ventricular failure as well. I think we can reduce her bumetanide to a single daily dose at this point. 3. Pulmonary hypertension: Possibly related to her diastolic dysfunction. Nonetheless, she has an element of right ventricular failure as well. This resulted in significant peripheral edema. She may be somewhat preload dependent which complicates treatment of her left-sided failure. 4. Atrial fibrillation: Her heart rates have improved since her hospitalization. This is likely due to improvement in her overall clinical condition and reduction in pulmonary vascular congestion. There has been a lot of confusion about her doses of diltiazem, digoxin and metoprolol over the past several months. She was actually admitted on 2 occasions once with bradycardia and once with tachycardia due to confusion and her medications. Currently on 50 mg of metoprolol succinate twice daily. This appears to have achieve reasonable rate control of her atrial fibrillation. Perhaps slightly more tachycardia today due to her anemia inactivity. I think we will monitor on his current dose. Defer anticoagulation as previously. Admission and Anticipated Discharge Date Admission Date: December 12, 2021 Subjective This morning patient did have some dyspnea when getting to the commode. At rest she seems to be fairly comfortable. She did not report dizziness. No pain. Fatigued. Review of Systems Review of Systems: Per HPI Physical Exam Physical Exam: She is alert and oriented x3. Mood affect appear normal. She answered all questions appropriately. pale HEENT: Sclerae are anicteric. Pupils are equal and reactive to light and accommodation. Extraocular movements were intact. Neuro: Cranial nerves intact Lungs: Reduced breath sounds at the right base with crackles in the midlung field. Crackles at the base on the left left. No expiratory wheezing. Normal respiratory effort. Cardiac: The rhythm was irregular. S1 and S2 were normal. The PMI was not markedly displaced on palpation. Abdomen: Obese Extremities: Patient has bilateral radial pulses that are equal in intensity. There is no evidence cyanosis or clubbing. Moderate bilateral lower extremity edema Skin: There are no rashes noted on examination today. Results & Data ([facility]) Vital Signs (Past 12 Hours) Vital Signs Temp Pulse Pulse Pulse Resp BP BP 12/13/21 10:19 36.8 C 114 H 14 113/69 12/13/21 09:19 36.8 C 105 H 18 110/65 12/13/21 08:49 36.6 C 99 H 20 93/55 L 12/13/21 08:34 36.6 C 104 H 16 110/72 12/13/21 08:15 36.7 C 107 H 18 125/74 12/13/21 08:00 12/13/21 07:15 36.4 C L 107 H 20 104/61 12/13/21 03:13 36.6 C 91 H 18 107/64 12/13/21 02:34 89 12/13/21 00:00 12/12/21 23:15 36.9 C 83 18 113/65 Pulse Ox Pulse Ox 12/13/21 10:19 97 12/13/21 09:19 95 12/13/21 08:49 93 12/13/21 08:34 99 12/13/21 08:15 96 12/13/21 08:00 94 12/13/21 07:15 94 12/13/21 03:13 99 12/13/21 02:34 12/13/21 00:00 94 12/12/21 23:15 99 Laboratory Results Abnormal Lab Results 12/12/21 12/12/21 12/12/21 11:07 16:22 20:24 WBC RBC Hgb Hct MCV MCH MCHC RDW Std Deviation RDW Coeff of [place] Plt Count Platelet Estimate Sodium Potassium Chloride Carbon Dioxide Anion Gap BUN Creatinine Est Cr Clr Drug Dosing Est GFR ( Amer) Est GFR (Non-Af Amer) BUN/Creatinine Ratio Glucose POC Glucose 246 H 297 H 212 H Calcium Magnesium Blood Type Antibody Screen Crossmatch 12/13/21 12/13/21 12/13/21 05:40 05:40 06:35 WBC 5.56 RBC 2.23 L Hgb 6.5 L* Hct 19.6 L* MCV 87.9 MCH 29.1 MCHC 33.2 RDW Std Deviation 49.4 H RDW Coeff of [place] 15.3 H Plt Count 15 L* Platelet Estimate SIGNIFIC DECREASED Sodium 133 L Potassium 4.3 Chloride 98 Carbon Dioxide 26 Anion Gap 9 BUN 68 H Creatinine 1.88 H Est Cr Clr Drug Dosing 26.5 Est GFR ( Amer) 28.9 Est GFR (Non-Af Amer) 25.0 BUN/Creatinine Ratio 36.2 H Glucose 165 H POC Glucose Calcium 8.4 L Magnesium 2.1 Blood Type O Positive Antibody Screen NEGATIVE Crossmatch See Detail 12/13/21 07:25 WBC RBC Hgb Hct MCV MCH MCHC RDW Std Deviation RDW Coeff of [place] Plt Count Platelet Estimate Sodium Potassium Chloride Carbon Dioxide Anion Gap BUN Creatinine Est Cr Clr Drug Dosing Est GFR ( Amer) Est GFR (Non-Af Amer) BUN/Creatinine Ratio Glucose POC Glucose 201 H Calcium Magnesium Blood Type Antibody Screen Crossmatch PG Care Time/CCT Total # of Minutes Spent Total Time Spent with Patient: Total time spent is greater than 50% in coordination of care (as documented) at patient's floor/unit and/or counseling patient: Coding Level of Care Code 49697 Subseq Hosp Care Lvl 2 Diagnoses Acute hypoxemic respiratory failure J96.01 Heart failure with preserved ejection fraction I50.30 Pulmonary hypertension I27.20 A-fib I48.91 Atrial fibrillation type: unspecified (1) A-fib Atrial fibrillation type: unspecified Qualified Code(s): I48.91 - Unspecified atrial fibrillation
[2021-12-13 12:56] LABS: Hematocrit (blood only) 22.5 % (37-47); Hemoglobin 7.5 g/dL (12.0-16.0)
--- NOTE | 2021-12-13 16:19 | Hospitalist Progress Note ---
Date of Service December 13, 2021 Assessment & Plan (1) Acute hypoxemic respiratory failure: Plan: Acute hypoxic respiratory failure Acute on chronic diastolic CHF H/O Diastolic dysfunction, Pulmonary hypertension Valvular Heart Disease Received fluid overload from bolus given [facility] due to low blood pressure --CXR:Cardiomegaly with persistent pulmonary edema and a moderate right pleural effusion. --Echo on 11/11/2021: EF: 60-65%, mild concentric LVH, aortic valve sclerosis without stenosis, mild AR, mild to moderate MR, moderate TR Received IV Lasix Resume home diuretics--bumetanide, spironolactone Monitor I's and O's, daily weight Continue supplemental oxygen as needed May need 2 step prior to discharge Appreciate Cariology Input Bumetanide decreased to 2mg daily Wean off of supplemental oxygen as able ALIX on CKD III ? Cardiorenal syndrome Troponin elevation likely demand ischemia due to ALIX, CHF Monitor renal function Avoid nephrotoxic agents as able Consider nephrology evaluation if creatinine continues to worsen Creatinine 1.8 today Atrial fibrillation RVR Currently not on anticoagulation due to bleeding risk given pancytopenia/MDS/Ongoing chemotherapy Continue Cardizem, metoprolol IV Lopressor PRN Cardiology on board Hyperlipidemia on statin Endometrial cancer S/P surgery Left breast cancer S/P surgery, chemotherapy, tamoxifen Rx Pancytopenia /MDS Follows with Had multiple transfusions previously Monitor CBC S/P 1 unit PRBC, platelets DM II HbA1C:7.14 Oct 2021 Continue Insulin Monitor BGs Inflammatory arthritis on chronic steroid Rx Continue Prednisone DVT Px: SCDs Re: Thrombocytopenia Code Status Full code Disposition PT/OT prior to discharge Admission and Anticipated Discharge Date Admission Date: December 12, 2021 Subjective Patient is seen and examined at bedside Reports dyspnea on exertion Sitting in chair during my encounter Feels tired Denies any chest pain, dizziness, nausea, abdominal pain Review of Systems Review of Systems: All systems reviewed & are unremarkable except as noted in Subjective Physical Exam Physical Exam: Physical Exam: Vitals signs as noted above General Appearance:Obese, no apparent distress, Elderly Head: normocephalic, Atraumatic Eyes: normal inspection, EOMI Neck: supple, Trachea midline Respiratory/Chest: Normal breath sounds, CTA, No accessory muscle use Cardiovascular: Irregularly irregular, No murmur Abdomen/GI:Soft, Non tender, Bowel sounds present Extremities/Musculoskeletal:normal inspection, 2+ B/L LE edema Neurologic/Psych:AAOX3, grossly no focal neurological deficits Skin: normal color, warm Results & Data Results & Data ([facility]) Vital Signs (Past 12 Hours) Vital Signs Temp Pulse Pulse Pulse Resp BP BP 12/13/21 15:28 36.7 C 88 19 113/72 12/13/21 15:24 85 12/13/21 15:09 36.7 C 84 16 101/67 12/13/21 14:31 36.6 C 96 H 18 111/61 12/13/21 13:31 36.6 C 86 18 101/63 12/13/21 13:01 36.8 C 99 H 18 96/58 L 12/13/21 12:46 36.7 C 84 16 101/58 L 12/13/21 12:23 36.6 C 87 16 96/64 L 12/13/21 11:07 36.8 C 105 H 18 115/74 12/13/21 10:19 36.8 C 114 H 14 113/69 12/13/21 09:19 36.8 C 105 H 18 110/65 12/13/21 08:49 36.6 C 99 H 20 93/55 L 12/13/21 08:34 36.6 C 104 H 16 110/72 12/13/21 08:15 36.7 C 107 H 18 125/74 12/13/21 08:00 12/13/21 07:58 102 H 12/13/21 07:15 36.4 C L 107 H 20 104/61 Pulse Ox Pulse Ox 12/13/21 15:28 100 12/13/21 15:24 12/13/21 15:09 99 12/13/21 14:31 94 12/13/21 13:31 96 12/13/21 13:01 98 12/13/21 12:46 96 12/13/21 12:23 98 12/13/21 11:07 100 12/13/21 10:19 97 12/13/21 09:19 95 12/13/21 08:49 93 12/13/21 08:34 99 12/13/21 08:15 96 12/13/21 08:00 94 12/13/21 07:58 12/13/21 07:15 94 Laboratory Results Short CBC 12/13/21 12/13/21 Range/Units 05:40 12:19 WBC 5.56 (4.8-10.8) K/uL Hgb 6.5 L* 7.5 L (12.0-16.0) g/dL Hct 19.6 L* 22.5 L (37-47) % Plt Count 15 L* (130-400) K/uL [facility] 12/13/21 05:40 Sodium 133 L Potassium 4.3 Chloride 98 Carbon Dioxide 26 BUN 68 H Creatinine 1.88 H Glucose 165 H Calcium 8.4 L
[2021-12-13] MEDS: traMADol HCL 50 MG TABLET PO PRN (23:12)
[2021-12-14] MEDS: traMADol HCL 50 MG TABLET PO PRN ×4 (03:14→20:41)
[2021-12-14] MEDS: ACETAMINOPHEN 500 MG TAB PO PRN ×2 (07:16→15:08)
[2021-12-14] MEDS: DOCUSATE SODIUM 100 MG CAP PO SCH ×2 (07:17→20:42)
[2021-12-14] MEDS: PANTOprazole 40 MG TAB PO SCH (07:17)
[2021-12-14] MEDS: dilTIAZem HCL 240 MG CAPCR PO SCH (07:17)
[2021-12-14] MEDS: ESCITALOPRAM OXALATE 10 MG TAB PO SCH (07:17)
[2021-12-14] MEDS: SPIRONOLACTONE 25 MG TAB PO SCH (07:17)
[2021-12-14] MEDS: predniSONE 5 MG TAB PO SCH (07:18)
[2021-12-14] MEDS: ATORVASTATIN 20 MG TAB PO SCH (07:18)
[2021-12-14] MEDS: allopurinoL 300 MG TAB PO SCH (07:18)
[2021-12-14] MEDS: METOPROLOL SUCC 50MG EXT REL TAB PO SCH ×2 (07:18→20:43)
[2021-12-14] MEDS: LANTUS PER UNIT CHARGE SC SCH (08:05)
[2021-12-14] MEDS: INSULIN ASPART PER UNIT SC SCH ×4 (08:05→20:24)
[2021-12-14 08:38] LABS: BUN Creatinine Ratio 44.2 (10-20); Calcium 8.6 mg/dl (8.5-10.1); Creatinine Clr Calc Pharmacy 29.3 ml/min; Est GFR (African American) 32.2 ml/min; Est GFR (Non-African American) 27.8 ml/min; Potassium 4.3 mmol/L (3.5-5.1)
[2021-12-14 08:41] LABS: Hematocrit (blood only) 23.2 % (37-47); Hemoglobin 7.7 g/dL (12.0-16.0); Mean Corpuscular Hemoglobin 29.3 pg (25-34); Mean Corpuscular Hgb Conc 33.2 g/dL (32-36); Mean Corpuscular Volume 88.2 fL (80-100); Platelet Count 8 K/uL (130-400); RDW Coefficient of Variation 15.1 % (11.5-14.5); RDW Standard Deviation 48.9 fL (36.4-46.3); Red Blood Count 2.63 M/uL (4.2-5.4); White Blood Count 4.04 K/uL (4.8-10.8)
[2021-12-14 08:47] LABS: Platelet Estimate SIGNIFIC DECREASED (Normal)
[2021-12-14] MEDS ORDERED: BUMETANIDE 1 MG TAB PO SCH (09:00)
[2021-12-14] MEDS ORDERED: FUROSEMIDE 40 MG/4 ML VIAL IV ONE (09:48)
[2021-12-14] MEDS ORDERED: CYCLOBENZAPRINE HCL 5 MG TAB PO ONE (10:59)
[2021-12-14] MEDS: LIDOCAINE 5% 1 PATCH TD SCH (11:12)
[2021-12-14] MEDS ORDERED: PHARMACY GLYCEMIC MGMT CONSULT PRN (11:31)
[2021-12-14] MEDS ORDERED: INSULIN HUMAN NPH SC ONE ×2 (12:15→18:30)
--- NOTE | 2021-12-14 14:08 | Pharmacy Report ---
Pharmacy Glycemic Short Note 2 - Date of Service December 14, 2021 - Glycemic Short BSG Results (Last 24 hours): 12/13/21 12/13/21 12/14/21 16:24 20:10 07:35 Glucose POC Glucose 293 H 261 H 221 H 12/14/21 12/14/21 12/14/21 07:55 11:28 12:05 Glucose 205 H POC Glucose 347 H* 367 H* 12/14/21 12:06 Glucose POC Glucose 373 H* OUTPATIENT ANTIDIABETIC REGIMEN: * Novolog Mix - 28 units daily and also NPH listed on med list NEED TO CLARIFY WITH PATIENT - per last admission had been on Novolog mix 38 units in the AM, 28 units Qpm ASSESSMENT: * Patient admitted with respiratory failure. She is a type 2 diabetic known to glycemic service from other admission. Discharged 11/27 last admission. We had been utilizing NPH bid with meals while admitted * Patient's BSG elevated at time of consult at 347 mg/dL - had been started on Lantus 10 units daily of basal. Plan to utilize similar parameters as last admission. Plan to give dose of NPH 20 units x 1 now, will have scale for this evening for 0-10 units and start with stress 2/3 of novolog PLAN FOR INPATIENT GLYCEMIC CONTROL: * Hold outpatient oral diabetes medications * Basal insulin * NPH 20 units x 1 * NPH 0-10 units with dinner * Bolus insulin * NovoLog per scale ACHS or Q6hrs while NPO * Goal Range: Low 110 mg/dL - High 140 mg/dL * Correction Factor: 20 mg/dL/unit * Nutritional / Prandial insulin per carb ratio of 1 unit per 7 grams CHO consumed
--- NOTE | 2021-12-14 16:07 | Hospitalist Progress Note ---
Date of Service December 14, 2021 Assessment & Plan (1) Acute hypoxemic respiratory failure: Plan: Acute hypoxic respiratory failure Acute on chronic diastolic CHF H/O Diastolic dysfunction, Pulmonary hypertension Valvular Heart Disease Received fluid overload from bolus given [facility] due to low blood pressure --CXR:Cardiomegaly with persistent pulmonary edema and a moderate right pleural effusion. --Echo on 11/11/2021: EF: 60-65%, mild concentric LVH, aortic valve sclerosis without stenosis, mild AR, mild to moderate MR, moderate TR Received IV Lasix Resume home diuretics--bumetanide, spironolactone Monitor I's and O's, daily weight Continue supplemental oxygen as needed May need 2 step prior to discharge Appreciate Cariology Input Continue Bumetanide 2mg BID Wean off of supplemental oxygen as able Will give extra dose of IV Lasix today as being transfused platelets ALIX on CKD III ? Cardiorenal syndrome Troponin elevation likely demand ischemia due to ALIX, CHF Monitor renal function Avoid nephrotoxic agents as able Consider nephrology evaluation if creatinine continues to worsen Creatinine 1.7 today Atrial fibrillation RVR Currently not on anticoagulation due to bleeding risk given p ancytopenia/MDS/Ongoing chemotherapy Continue Cardizem, metoprolol IV Lopressor PRN Cardiology on board Hyperlipidemia on statin Endometrial cancer S/P surgery Left breast cancer S/P surgery, chemotherapy, tamoxifen Rx Pancytopenia /MDS Follows with Had multiple transfusions previously Monitor CBC S/P PRBC, platelets transfusion No bleeding issues DM II HbA1C:7.14 Oct 2021 Continue Insulin Monitor BGs Consulted glycemic pharmacist to help with management Inflammatory arthritis on chronic steroid Rx Continue Prednisone DVT Px: SCDs Re: Thrombocytopenia Code Status Full code Disposition PT/OT prior to discharge Admission and Anticipated Discharge Date Admission Date: December 12, 2021 Subjective Patient is seen and examined at bedside States having neck discomfort with movement Still has dyspnea on exertion Denies any chest pain, dizziness, nausea, abdominal pain, bleeding issues No other complaints Review of Systems Review of Systems: All systems reviewed & are unremarkable except as noted in Subjective Physical Exam Physical Exam: Physical Exam: Vitals signs as noted above General Appearance:Obese, no apparent distress, Elderly Head: normocephalic, Atraumatic Eyes: normal inspection, EOMI Neck: supple, Trachea midline Respiratory/Chest: Normal breath sounds, CTA, No accessory muscle use Cardiovascular: Irregularly irregular, No murmur Abdomen/GI:Soft, Non tender, Bowel sounds present Extremities/Musculoskeletal:normal inspection, 2+ B/L LE edema Neurologic/Psych:AAOX3, grossly no focal neurological deficits Skin: normal color, warm Results & Data Results & Data ([facility]) Vital Signs (Past 12 Hours) Vital Signs Temp Pulse Pulse Resp BP BP Pulse Ox 12/14/21 15:53 12/14/21 15:26 97 H 12/14/21 15:16 36.4 C L 98 H 18 118/72 98 12/14/21 15:01 36.4 C L 98 H 14 114/72 99 12/14/21 14:46 36.4 C L 86 16 120/67 97 12/14/21 14:44 36.4 C L 86 16 120/67 97 12/14/21 13:52 36.4 C L 104 H 18 120/67 98 12/14/21 13:21 36.5 C 101 H 18 118/61 92 12/14/21 12:21 36.4 C L 92 H 16 116/68 92 12/14/21 11:21 36.5 C 108 H 16 118/62 96 12/14/21 10:51 36.4 C L 106 H 18 111/63 96 12/14/21 10:36 36.4 C L 107 H 16 113/66 96 12/14/21 10:10 36.4 C L 106 H 20 114/64 99 12/14/21 08:00 12/14/21 07:21 36.4 C L 92 H 14 100/63 91 12/14/21 07:00 92 H Pulse Ox 12/14/21 15:53 98 12/14/21 15:26 12/14/21 15:16 12/14/21 15:01 12/14/21 14:46 12/14/21 14:44 12/14/21 13:52 12/14/21 13:21 12/14/21 12:21 12/14/21 11:21 12/14/21 10:51 12/14/21 10:36 12/14/21 10:10 12/14/21 08:00 94 12/14/21 07:21 12/14/21 07:00 Laboratory Results Short CBC 12/14/21 Range/Units 07:55 WBC 4.04 L (4.8-10.8) K/uL Hgb 7.7 L (12.0-16.0) g/dL Hct 23.2 L (37-47) % Plt Count 8 L* (130-400) K/uL [facility] 12/14/21 07:55 Sodium 133 L Potassium 4.3 Chloride 98 Carbon Dioxide 28 BUN 76 H Creatinine 1.72 H Glucose 205 H Calcium 8.6
[2021-12-14] MEDS: BUMETANIDE 1 MG TAB PO SCH (20:42)
[2021-12-15] MEDS ORDERED: INSULIN ASPART PER UNIT SC SCH
--- NOTE | 2021-12-15 07:18 | XRay Report ---
XR chest 1V portable CLINICAL HISTORY: Congestive heart failure. COMPARISON STUDY: Chest radiograph December 11, 2021. FINDINGS: There is no pneumothorax. Cardiomegaly is again noted. Moderate right pleural effusion is n oted. There is a small left pleural effusion. Pulmonary edema slightly improved. Bibasilar opacities are again noted. IMPRESSION: 1. Slight improvement in pulmonary edema. 2. Persistent moderate right and small left pleural effusions with associated bibasilar opacities. ACT 112: Negative or not required by law. Electronically signed by: Destin Gandara M.D. 12/15/2021 7:17 AM
[2021-12-15 07:21] LABS: BUN Creatinine Ratio 49.4 (10-20); Calcium 8.6 mg/dl (8.5-10.1); Creatinine Clr Calc Pharmacy 29.5 ml/min; Est GFR (African American) 32.7 ml/min; Est GFR (Non-African American) 28.2 ml/min; Potassium 4.3 mmol/L (3.5-5.1)
[2021-12-15 07:35] LABS: Hematocrit (blood only) 22.5 % (37-47); Hemoglobin 7.5 g/dL (12.0-16.0); Mean Corpuscular Hemoglobin 29.1 pg (25-34); Mean Corpuscular Hgb Conc 33.3 g/dL (32-36); Mean Corpuscular Volume 87.2 fL (80-100); Platelet Count 10 K/uL (130-400); RDW Coefficient of Variation 15.2 % (11.5-14.5); RDW Standard Deviation 48.5 fL (36.4-46.3); Red Blood Count 2.58 M/uL (4.2-5.4); White Blood Count 2.67 K/uL (4.8-10.8)
[2021-12-15] MEDS: ACETAMINOPHEN 500 MG TAB PO PRN (07:55)
[2021-12-15] MEDS: traMADol HCL 50 MG TABLET PO PRN ×3 (07:55→20:48)
[2021-12-15] MEDS: LIDOCAINE 5% 1 PATCH TD SCH (07:56)
[2021-12-15] MEDS: dilTIAZem HCL 240 MG CAPCR PO SCH (07:57)
[2021-12-15] MEDS: SPIRONOLACTONE 25 MG TAB PO SCH (07:57)
[2021-12-15] MEDS: METOPROLOL SUCC 50MG EXT REL TAB PO SCH ×2 (07:58→20:50)
[2021-12-15] MEDS: predniSONE 5 MG TAB PO SCH (07:58)
[2021-12-15] MEDS: ATORVASTATIN 20 MG TAB PO SCH (07:58)
[2021-12-15] MEDS: ESCITALOPRAM OXALATE 10 MG TAB PO SCH (07:58)
[2021-12-15] MEDS: BUMETANIDE 1 MG TAB PO SCH ×2 (07:58→20:49)
[2021-12-15] MEDS: allopurinoL 300 MG TAB PO SCH (07:58)
[2021-12-15] MEDS: PANTOprazole 40 MG TAB PO SCH (07:58)
[2021-12-15] MEDS: DOCUSATE SODIUM 100 MG CAP PO SCH ×2 (07:59→20:50)
[2021-12-15] MEDS: INSULIN ASPART PER UNIT SC SCH ×4 (08:00→20:45)
[2021-12-15] MEDS: INSULIN HUMAN NPH SC SCH (08:29)
--- NOTE | 2021-12-15 09:04 | Pharmacy Report ---
Pharmacy Glycemic Short Note 2 - Date of Service December 15, 2021 - Glycemic Short BSG Results (Last 24 hours): 12/14/21 12/14/21 12/14/21 11:28 12:05 12:06 Glucose POC Glucose 347 H* 367 H* 373 H* 12/14/21 12/14/21 12/14/21 14:53 16:18 20:14 Glucose POC Glucose 292 H 213 H 146 H 12/15/21 12/15/21 12/15/21 00:13 06:40 07:28 Glucose 86 POC Glucose 122 H 104 H OUTPATIENT ANTIDIABETIC REGIMEN: * Novolog Mix - 28 units daily and also NPH listed on med list NEED TO CLARIFY WITH PATIENT - per last admission had been on Novolog mix 38 units in the AM, 28 units Qpm ASSESSMENT: 12/15 * Patient received total of 78 units of insulin yesterday, of which 30 units were NPH, 5 units Lantus * Fasting BSG 104 mg/dL - will continue with NPH 20 units Qam, 10 units daily wi th dinner 12/14 * Patient admitted with respiratory failure. She is a type 2 diabetic known to glycemic service from other admission. Discharged 11/27 last admission. We had been utilizing NPH bid with meals while admitted * Patient's BSG elevated at time of consult at 347 mg/dL - had been started on Lantus 10 units daily of basal. Plan to utilize similar parameters as last ad mission. Plan to give dose of NPH 20 units x 1 now, will have scale for this evening for 0-10 units and start with stress 2/3 of novolog PLAN FOR INPATIENT GLYCEMIC CONTROL: * Hold outpatient oral diabetes medications * Basal insulin * NPH 20 units daily Qam * NPH 10 units daily with dinner * Bolus insulin * NovoLog per scale ACHS or Q6hrs while NPO * Goal Range: Low 110 mg/dL - High 140 mg/dL * Correction Factor: 25 mg/dL/unit * Nutritional / Prandial insulin per carb ratio of 1 unit per 7 grams CHO consumed
--- NOTE | 2021-12-15 11:42 | CT Scan Report ---
CT OF THE CERVICAL SPINE WITHOUT CONTRAST CLINICAL HISTORY: Neck pain. COMPARISON STUDY: Cervical spine radiographs July 19, 2013. TECHNIQUE: Helical axial images of the cervical spine were obtained without IV contrast. Sagittal a nd coronal reconstructions were viewed. Automated exposure control was utilized for the study. A do se lowering technique was utilized adhering to the principles of ALARA. FINDINGS: Reversal of the normal cervical lordosis is noted. This exam is mildly compromised given di fficulty positioning. However, there is no acute fracture within the cervical spine degenerative cerna ges at the C1-C2 articulation are noted. There is moderate multilevel facet arthrosis as well as mult ilevel disc space narrowing and osteophytosis. There is no prevertebral edema. Trace fluid within the right mastoid air cells is incidentally noted. A right pleural effusion is partially imaged. IMPRESSION: 1. No acute cervical spine fracture or subluxation. 2. Moderate multilevel degenerative disc disease and facet arthrosis within the cervical spine. 3. Partially visualized right pleural effusion. ACT 112: Negative or not required by law. Electronically signed by: Destin Gandara M.D. 12/15/2021 11:39 AM
[2021-12-15] MEDS: DICLOFENAC SOD 1% GEL 100 GM TUBE EXT PRN (12:16)
[2021-12-15] MEDS ORDERED: FUROSEMIDE INJ 20 MG/2 ML VIAL IV ONE (14:00)
--- NOTE | 2021-12-15 15:23 | Hospitalist Progress Note ---
Date of Service December 15, 2021 Assessment & Plan (1) Acute hypoxemic respiratory failure: Plan: Acute hypoxic respiratory failure Acute on chronic diastolic CHF H/O Diastolic dysfunction, Pulmonary hypertension Valvular Heart Disease Received fluid overload from bolus given [facility] due to low blood pressure --CXR:Cardiomegaly with persistent pulmonary edema and a moderate right pleural effusion. --Echo on 11/11/2021: EF: 60-65%, mild concentric LVH, aortic valve sclerosis without stenosis, mild AR, mild to moderate MR, moderate TR Received IV Lasix Resume home diuretics--bumetanide, spironolactone Monitor I's and O's, daily weight Continue supplemental oxygen as needed May need 2 step prior to discharge Appreciate Cariology Input Continue Bumetanide 2mg BID Wean off of supplemental oxygen as able Add IV Lasix as needed CXR today showed slight improvement in pulmonary edema, bibasilar opacities with B/L effusions Check Procalcitonin ALIX on CKD III ? Cardiorenal syndrome Troponin elevation likely demand ischemia due to ALIX, CHF Monitor renal function Avoid nephrotoxic agents as able Consider nephrology evaluation if creatinine continues to worsen Creatinine 1.7 today Atrial fibrillation RVR Currently not on anticoagulation due to bleeding risk given pancytopenia/MDS/Ongoing chemotherapy Continue Cardizem, metoprolol IV Lopressor PRN Cardiology on board Hyperlipidemia on statin Endometrial cancer S/P surgery Left breast cancer S/P surgery, chemotherapy, tamoxifen Rx Pancytopenia /MDS Follows with Had multiple transfusions previously Monitor CBC S/P PRBC, platelets transfusion No bleeding issues Consulted Hematology/Oncology for Input DM II HbA1C:7.14 Oct 2021 Continue Insulin Monitor BGs Consulted glycemic pharmacist to help with management Inflammatory arthritis on chronic steroid Rx Continue Prednisone DVT Px: SCDs Re: Thrombocytopenia Code Status Full code Disposition PT/OT prior to discharge Admission and Anticipated Discharge Date Admission Date: December 12, 2021 Subjective Patient is seen and examined at bedside States having persistent neck pain with movement Also reports mild dry cough Dyspnea intermittently Denies any chest pain, dizziness, nausea, abdominal pain, bleeding issues Review of Systems Review of Systems: All systems reviewed & are unremarkable except as noted in Subjective Physical Exam Physical Exam: Physical Exam: Vitals signs as noted above General Appearance:Obese, no apparent distress, Elderly Head: normocephalic, Atraumatic Eyes: normal inspection, EOMI Neck: supple, Trachea midline Respiratory/Chest: Normal breath sounds, CTA, No accessory muscle use Cardiovascular: Irregularly irregular, No murmur Abdomen/GI:Soft, Non tender, Bowel sounds present Extremities/Musculoskeletal:normal inspection, 2+ B/L LE edema Neurologic/Psych:AAOX3, grossly no focal neurological deficits Skin: normal color, warm Results & Data Results & Data ([facility]) Vital Signs (Past 12 Hours) Vital Signs Temp Pulse Pulse Pulse Resp BP Pulse Ox 12/15/21 11:40 36.7 C 96 H 20 108/69 93 12/15/21 08:05 36.5 C 104 H 19 106/62 92 12/15/21 08:00 12/15/21 07:42 89 Pulse Ox 12/15/21 11:40 12/15/21 08:05 12/15/21 08:00 92 12/15/21 07:42 Laboratory Results Short CBC 12/15/21 Range/Units 06:40 WBC 2.67 L (4.8-10.8) K/uL Hgb 7.5 L (12.0-16.0) g/dL Hct 22.5 L (37-47) % Plt Count 10 L* (130-400) K/uL [facility] 12/15/21 06:40 Sodium 137 Potassium 4.3 Chloride 100 Carbon Dioxide 31 BUN 84 H Creatinine 1.70 H Glucose 86 Calcium 8.6
[2021-12-15] MEDS ORDERED: INSULIN HUMAN NPH SC SCH (18:00)
[2021-12-16 06:32] LABS: BUN Creatinine Ratio 49.4 (10-20); Calcium 8.5 mg/dl (8.5-10.1); Creatinine Clr Calc Pharmacy 30.2 ml/min; Est GFR (African American) 33.6 ml/min; Potassium 4.2 mmol/L (3.5-5.1)
[2021-12-16 06:59] LABS: Hematocrit (blood only) 21.1 % (37-47); Mean Corpuscular Hemoglobin 29.4 pg (25-34); Mean Corpuscular Hgb Conc 33.2 g/dL (32-36); Mean Corpuscular Volume 88.7 fL (80-100); Platelet Count 11 K/uL (130-400); Platelet Estimate SIGNIFIC DECREASED (Normal); RDW Standard Deviation 48.9 fL (36.4-46.3); Red Blood Count 2.38 M/uL (4.2-5.4); White Blood Count 2.26 K/uL (4.8-10.8)
[2021-12-16] MEDS ORDERED: SODIUM CHLORIDE 0.9% 250 ML IV PRN (08:22)
[2021-12-16] MEDS: INSULIN ASPART PER UNIT SC SCH ×4 (09:07→20:18)
[2021-12-16] MEDS: INSULIN HUMAN NPH SC SCH (09:10)
[2021-12-16] MEDS: ESCITALOPRAM OXALATE 10 MG TAB PO SCH (09:14)
[2021-12-16] MEDS: PANTOprazole 40 MG TAB PO SCH (09:14)
[2021-12-16] MEDS: ATORVASTATIN 20 MG TAB PO SCH (09:14)
[2021-12-16] MEDS: predniSONE 5 MG TAB PO SCH (09:14)
[2021-12-16] MEDS: DOCUSATE SODIUM 100 MG CAP PO SCH ×2 (09:14→20:17)
[2021-12-16] MEDS: allopurinoL 300 MG TAB PO SCH (09:14)
[2021-12-16] MEDS: LIDOCAINE 5% 1 PATCH TD SCH (09:15)
[2021-12-16] MEDS: traMADol HCL 50 MG TABLET PO PRN (09:20)
[2021-12-16] MEDS: METOPROLOL SUCC 50MG EXT REL TAB PO SCH ×2 (09:40→20:19)
[2021-12-16] MEDS: BUMETANIDE 1 MG TAB PO SCH ×2 (09:42→20:17)
[2021-12-16] MEDS: SPIRONOLACTONE 25 MG TAB PO SCH (09:42)
[2021-12-16] MEDS: dilTIAZem HCL 240 MG CAPCR PO SCH ×2 (09:42→14:59)
[2021-12-16] MEDS: DICLOFENAC SOD 1% GEL 100 GM TUBE EXT PRN (12:41)
[2021-12-16] MEDS ORDERED: FUROSEMIDE INJ 20 MG/2 ML VIAL IV ONE (14:00)
--- NOTE | 2021-12-16 14:24 | Hospitalist Progress Note ---
Date of Service December 16, 2021 Assessment & Plan (1) Acute hypoxemic respiratory failure: Plan: Acute hypoxic respiratory failure Acute on chronic diastolic CHF H/O Diastolic dysfunction, Pulmonary hypertension Valvular Heart Disease Received fluid overload from bolus given [facility] due to low blood pressure --CXR:Cardiomegaly with persistent pulmonary edema and a moderate right pleural effusion. --Echo on 11/11/2021: EF: 60-65%, mild concentric LVH, aortic valve sclerosis without stenosis, mild AR, mild to moderate MR, moderate TR Received IV Lasix Resumed home diuretics--bumetanide, spironolactone Monitor I's and O's, daily weight Continue supplemental oxygen as needed May need 2 step prior to discharge Appreciate Cariology Input Weaned off of supplemental oxygen Add IV Lasix as needed CXR today showed slight improvement in pulmonary edema, bibasilar opacities with B/L effusions Normal Procalcitonin Monitor volume status Continue home diuretics ALIX on CKD III ? Cardiorenal syndrome Troponin elevation likely demand ischemia due to ALIX, CHF Monitor renal function Avoid nephrotoxic agents as able Consider nephrology evaluation if creatinine continues to worsen Creatinine 1.6 today Atrial fibrillation RVR Currently not on anticoagulation due to bleeding risk given pancytopenia/MDS/Ongoing chemotherapy Continue Cardizem, metoprolol IV Lopressor PRN Cardiology on board Hyperlipidemia on statin Endometrial cancer S/P surgery Left breast cancer S/P surgery, chemotherapy, tamoxifen Rx Pancytopenia /MDS Follows with Had multiple transfusions previously Monitor CBC S/P PRBC, platelets transfusion No bleeding issues Consulted Hematology/Oncology for Input Will transfuse 1 unit PRBC today DM II HbA1C:7.14 Oct 2021 Continue Insulin Monitor BGs Consulted glycemic pharmacist to help with management Inflammatory arthritis on chronic steroid Rx Continue Prednisone DVT Px: SCDs Re: Thrombocytopenia Code Status Full code Disposition Needs rehab placement Admission and Anticipated Discharge Date Admission Date: December 12, 2021 Subjective Patient is seen and examined at bedside States having generalized weakness Leg pain is better BP low today Has dyspnea on exertion Denies any chest pain, dizziness, nausea, abdominal pain, bleeding issues Review of Systems Review of Systems: All systems reviewed & are unremarkable except as noted in Subjective Physical Exam Physical Exam: Physical Exam: Vitals signs as noted above General Appearance:Obese, no apparent distress, Elderly Head: normocephalic, Atraumatic Eyes: normal inspection, EOMI Neck: supple, Trachea midline Respiratory/Chest: Normal breath sounds, CTA, No accessory muscle use Cardiovascular: Irregularly irregular, No murmur Abdomen/GI:Soft, Non tender, Bowel sounds present Extremities/Musculoskeletal:normal inspection, 2+ B/L LE edema Neurologic/Psych:AAOX3, grossly no focal neurological deficits Skin: normal color, warm Results & Data Results & Data ([facility]) Vital Signs (Past 12 Hours) Vital Signs Temp Pulse Pulse Pulse Resp BP BP 12/16/21 13:35 36.9 C 106 H 16 99/58 L 12/16/21 13:05 36.9 C 105 H 18 133/71 12/16/21 12:50 36.4 C L 105 H 16 133/85 12/16/21 12:38 36.4 C L 90 19 102/61 12/16/21 12:35 36.4 C L 98 H 16 103/64 12/16/21 08:03 37.0 C 90 19 106/65 12/16/21 03:45 36.3 C L 97 H 14 116/74 Pulse Ox 12/16/21 13:35 91 12/16/21 13:05 96 12/16/21 12:50 97 12/16/21 12:38 96 12/16/21 12:35 97 12/16/21 08:03 95 12/16/21 03:45 94 Laboratory Results Short CBC 12/16/21 Range/Units 05:54 WBC 2.26 L (4.8-10.8) K/uL Hgb 7.0 L (12.0-16.0) g/dL Hct 21.1 L (37-47) % Plt Count 11 L* (130-400) K/uL [facility] 12/16/21 05:54 Sodium 136 Potassium 4.2 Chloride 98 Carbon Dioxide 31 BUN 82 H Creatinine 1.66 H Glucose 168 H Calcium 8.5
[2021-12-16] MEDS ORDERED: INSULIN HUMAN NPH SC SCH (17:00)
[2021-12-16] MEDS: ACETAMINOPHEN 500 MG TAB PO PRN (20:17)
[2021-12-17 06:43] LABS: Platelet Count 17 K/uL (130-400)
[2021-12-17 07:03] LABS: Hematocrit (blood only) 23.6 % (37-47); Immature Granulocytes # (auto) 0.04 K/uL (0.00-0.02); Immature Granulocytes % (auto) 1.7 %; Lymphocytes # (auto) 0.45 K/uL (1.2-3.4); Lymphocytes % (auto) 19.7 %; Mean Corpuscular Hemoglobin 29.3 pg (25-34); Mean Corpuscular Hgb Conc 33.9 g/dL (32-36); Mean Corpuscular Volume 86.4 fL (80-100); Monocytes # (auto) 0.15 K/uL (0.11-0.59); Monocytes % (auto) 6.6 %; Neutrophils # (auto) 1.65 K/uL (1.4-6.5); RDW Standard Deviation 47.2 fL (36.4-46.3); Red Blood Count 2.73 M/uL (4.2-5.4); White Blood Count 2.29 K/uL (4.8-10.8)
[2021-12-17 07:06] LABS: BUN Creatinine Ratio 46.6 (10-20); Calcium 8.5 mg/dl (8.5-10.1); Creatinine Clr Calc Pharmacy 28.7 ml/min; Est GFR (African American) 31.8 ml/min; Est GFR (Non-African American) 27.4 ml/min; Potassium 4.1 mmol/L (3.5-5.1)
[2021-12-17] MEDS: ATORVASTATIN 20 MG TAB PO SCH (08:34)
[2021-12-17] MEDS: allopurinoL 300 MG TAB PO SCH (08:34)
[2021-12-17] MEDS: DOCUSATE SODIUM 100 MG CAP PO SCH (08:35)
[2021-12-17] MEDS: BUMETANIDE 1 MG TAB PO SCH (08:35)
[2021-12-17] MEDS: METOPROLOL SUCC 50MG EXT REL TAB PO SCH (08:36)
[2021-12-17] MEDS: LIDOCAINE 5% 1 PATCH TD SCH (08:36)
[2021-12-17] MEDS: ESCITALOPRAM OXALATE 10 MG TAB PO SCH (08:36)
[2021-12-17] MEDS: SPIRONOLACTONE 25 MG TAB PO SCH (08:37)
[2021-12-17] MEDS: PANTOprazole 40 MG TAB PO SCH (08:37)
[2021-12-17] MEDS: predniSONE 5 MG TAB PO SCH (08:37)
[2021-12-17] MEDS: DICLOFENAC SOD 1% GEL 100 GM TUBE EXT PRN (08:41)
--- NOTE | 2021-12-17 08:53 | Pharmacy Report ---
Pharmacy Glycemic Short Note 2 - Date of Service December 17, 2021 - Glycemic Short BSG Results (Last 24 hours): 12/16/21 12/16/21 12/16/21 11:25 11:26 16:35 Glucose POC Glucose 307 H* 303 H* 209 H 12/16/21 12/17/21 12/17/21 20:05 05:57 07:39 Glucose 148 H POC Glucose 205 H 181 H OUTPATIENT ANTIDIABETIC REGIMEN: * Novolog Mix - per last admission and most recent [facility] records (11/04/21) has been on Novolog 70/30 mix 38 units in the AM, 28 units Qpm HbA1c: 7.2% (10/16/21) ASSESSMENT: 12/17 * BSGs elevated yesterday, 195, 303, 209, and 205 mg/dL * Received 69 units of insulin (30 units of NPH and 39 units of prandial/correctional bolus) * Fasting BSG of 181 mg/dL this morning * Will plan on tightening Novolog today and likely increasing basal insulin as well * Further tighten AM Novolog tomorrow 12/15 * Patient received total of 78 units of insulin yesterday, of which 30 units were NPH, 5 units Lantus * Fasting BSG 104 mg/dL - will continue with NPH 20 units Qam, 10 units daily with dinner 12/14 * Patient admitted with respiratory failure. She is a type 2 diabetic known to glycemic service from other admission. Discharged 11/27 last admission. We had been utilizing NPH bid with meals while admitted * Patient's BSG elevated at time of consult at 347 mg/dL - had been started on Lantus 10 units daily of basal. Plan to utilize similar parameters as last admission. Plan to give dose of NPH 20 units x 1 now, will have scale for this evening for 0-10 units and start with stress 2/3 of novolog PLAN FOR INPATIENT GLYCEMIC CONTROL: * Basal insulin * NPH 20 units SC with breakfast * NPH 10-20 units SC with dinner * Bolus insulin * NovoLog per scale ACHS or Q6hrs while NPO * Goal Range: Low 110 mg/dL - High 140 mg/dL * Correction Factor: 20 mg/dL/unit * Nutritional / Prandial insulin per carb ratio of 1 unit per 7 grams CHO consumed
[2021-12-17] MEDS: INSULIN ASPART PER UNIT SC SCH ×2 (09:11→12:17)
[2021-12-17] MEDS: INSULIN HUMAN NPH SC SCH (09:12)
--- NOTE | 2021-12-17 09:41 | Consultation Report ---
DATE OF SERVICE: 12/17/2021. REASON FOR CONSULTATION: Pancytopenia. HISTORY OF PRESENT ILLNESS: The patient is a 81-year-old female known to me at [facility] who has a medical history significant for MDS-EB1 for which she started hypomethylating treatment with azacitidine on 10/14/2021. She also has a medical history of endometrial cancer diagnosed in 2007, for which she is status post BENSON-BSO, and history of left breast cancer diagnosed in 2011, status post left partial m astectomy followed by adjuvant radiation treatment and 5 years of tamoxifen therapy. The patient has had recurrent hospitalizations and was admitted on 12/12/2021 after being discharged from [facility] hours prior with complaints of shortness of breath. Ever since then, patient has been treated for decompensated heart failure. Hematology was consulted for pancytopenia. She has required trans fusions with PRBC and platelets for pancytopenia. The patient indicates today that she is feeling a lot better. Denies significant shortness of breath, chest pain, abdominal pain, nausea, vomiting, di arrhea, constipation. Complains of lower extremity swelling, which she states is improving. PAST MEDICAL HISTORY: 1. Chronic diastolic heart failure. 2. Pulmonary hypertension. 3. Atrial fibrillation. 4. Hypertension. 5. Hyperlipidemia. 6. Endometrial cancer. 7. Left breast cancer. 8. MDS-EB1. PAST SURGICAL HISTORY: 1. Carpal tunnel surgery. 2. Cholecystectomy. 3. Cataract surgery. 4. BENSON/BSO. 5. Breast surgery, partial mastectomy. FAMILY HISTORY: Noncontributory. SOCIAL HISTORY: Denies smoking, alcohol and illicit drug use. HOME MEDICATIONS: 1. Allopurinol. 2. Bumetanide. 3. Diltiazem. 4. Escitalopram. 5. Loratadine. 6. Prednisone. 7. Atorvastatin. 8. Tylenol. 9. Docusate sodium. 10. Pantoprazole. 11. Spironolactone. 12. Metoprolol. 13. Rabeprazole. ALLERGIES: 1. HYDROCODONE. 2. FENTANYL. 3. PROTAMINE. 4. SODIUM PHOSPHATE. 5. ZINC. 6. HYDROXYCHLOROQUINE. REVIEW OF SYSTEMS: Unremarkable. PHYSICAL EXAMINATION: VITAL SIGNS: Blood pressure 112/69, heart rate 75, respiratory rate 18, temperature 36.6, oxygen sat uration 94% on room air. EYES: Without conjunctival erythema or icterus. ENT: Negative for masses. RESPIRATORY: Lung sounds were generally clear bilaterally. CARDIOVASCULAR: Heart was irregularly irregular. GASTROINTESTINAL: No palpable hepatosplenomegaly. ABDOMEN: Soft with normal bowel sounds. LYMPHATIC SYSTEM: No palpable peripheral lymphadenopathy. EXTREMITIES: 2+ to 3+ pitting edema bilaterally. LABORATORY DATA: CBC on 12/17/2021, significant for white count of 2.29, hemoglobin of 8.0, hematocr it of 23.3, MCV 86.4, platelet count 17,000. Chemistry: Sodium 134, potassium 4.1, chloride 97, bic arbonate 30, BUN 81, creatinine 1.74. ASSESSMENT AND PLAN: 1. Myelodysplastic syndrome with excess blasts. 2. History of endometrial cancer. 3. History of breast cancer. 4. Diastolic heart failure. 5. Pancytopenia due to myelodysplastic syndrome. Pleasant 81-year-old female with multiple comorbidities who is currently being treated for MDS with e xcess blasts and most recently received cycle 2 of 5 azacitidine between 12/09/2021 and 12/11/2021 as treatment was discontinued due to recent hospitalization. The patient is aware of overall poor prog nosis given her other comorbid conditions. She indicates that she would, however, want to continue t reatment at this time. Would start as such, recommend transfusing with goal of maintaining hemoglobi n greater than 8 and platelet count greater than 20,000. Agree with management of underlying CHF at this time. Thank you for this consult. Hematology will continue following the patient while in the hospital. Patsy beckman feel free to call if you have any further questions. Job ID: [id number]
--- NOTE | 2021-12-17 15:41 | Hospitalist Progress Note ---
Date of Service December 17, 2021 Assessment & Plan (1) Acute hypoxemic respiratory failure: Plan: Acute hypoxic respiratory failure Acute on chronic diastolic CHF H/O Diastolic dysfunction, Pulmonary hypertension Valvular Heart Disease Received fluid overload from bolus given [facility] due to low blood pressure --CXR:Cardiomegaly with persistent pulmonary edema and a moderate right pleural effusion. --Echo on 11/11/2021: EF: 60-65%, mild concentric LVH, aortic valve sclerosis without stenosis, mild AR, mild to moderate MR, moderate TR Received IV Lasix Resumed home diuretics--bumetanide, spironolactone Monitor I's and O's, daily weight Continue supplemental oxygen as needed May need 2 step prior to discharge Appreciate Cariology Input Weaned off of supplemental oxygen Add IV Lasix as needed Repeat CXR showed slight improvement in pulmonary edema, bibasilar opacities with B/L effusions Normal Procalcitonin Monitor volume status Continue home diuretics Saturating well on room air ALIX on CKD IV Baseline Cr ~1.6 ? Cardiorenal syndrome Troponin elevation likely demand ischemia due to ALIX, CHF Monitor renal function Avoid nephrotoxic agents as able Consider nephrology evaluation if creatinine continues to worsen Creatinine 1.7 today Atrial fibrillation RVR Currently not on anticoagulation due to bleeding risk given pancytopenia/MDS/Ongoing chemotherapy Continue Cardizem, metoprolol IV Lopressor PRN Cardiology on board Hyperlipidemia on statin Endometrial cancer S/P surgery Left breast cancer S/P surgery, chemotherapy, tamoxifen Rx Pancytopenia /MDS with Excess blasts: Transfusion dependent Follows with Had multiple transfusions previously Monitor CBC S/P PRBC, platelets transfusion No bleeding issues Appreciate Hematology/Oncology Input Nieves on chemotherapy 2 of 5 azacitidine Overall poor prognosis Keep hemoglobin > 8 and Platelets > 20k Next chemotherapy likely in 1 month as per Oncology DM II HbA1C:7.14 Oct 2021 Continue Insulin Monitor BGs Consulted glycemic pharmacist to help with management Inflammatory arthritis on chronic steroid Rx Continue Prednisone DVT Px: SCDs Re: Thrombocytopenia Code Status Full code Disposition Needs rehab placement Admission and Anticipated Discharge Date Admission Date: December 12, 2021 Subjective Patient is seen and examined at bedside States feeling much better today Neck pain much improved Still has significant lower extremity edema Saturating well on room air Discussed with oncology today Denies any dyspnea today Also denies any chest pain, dizziness, nausea, abdominal pain, bleeding issues Review of Systems Review of Systems: All systems reviewed & are unremarkable except as noted in Subjective Physical Exam Physical Exam: Physical Exam: Vitals signs as noted above General Appearance:Obese, no apparent distress, Elderly Head: normocephalic, Atraumatic Eyes: normal inspection, EOMI Neck: supple, Trachea midline Respiratory/Chest: Normal breath sounds, CTA, No accessory muscle use Cardiovascular: Irregularly irregular, No murmur Abdomen/GI:Soft, Non tender, Bowel sounds present Extremities/Musculoskeletal:normal inspection, 2+ B/L LE edema Neurologic/Psych:AAOX3, grossly no focal neurological deficits Skin: normal color, warm Results & Data Results & Data ([facility]) Vital Signs (Past 12 Hours) Vital Signs Temp Pulse Pulse Pulse Resp BP Pulse Ox 12/17/21 15:23 36.9 C 95 H 22 102/62 96 12/17/21 12:46 36.8 C 77 19 120/73 98 12/17/21 08:00 36.6 C 78 18 106/71 97 12/17/21 07:52 75 Pulse Ox 12/17/21 15:23 12/17/21 12:46 12/17/21 08:00 97 12/17/21 07:52 Laboratory Results Short CBC 12/17/21 Range/Units 05:57 WBC 2.29 L (4.8-10.8) K/uL Hgb 8.0 L (12.0-16.0) g/dL Hct 23.6 L (37-47) % Plt Count 17 L* D (130-400) K/uL BMP 12/17/21 05:57 Sodium 134 L Potassium 4.1 Chloride 97 L Carbon Dioxide 30 BUN 81 H Creatinine 1.74 H Glucose 148 H Calcium 8.5
--- NOTE | 2021-12-17 16:07 | Discharge Summary ---
Date of Service December 17, 2021 Admission HPI Per Admitting Provider History obtained from patient, family, and records. Medical history significant for chronic diastolic heart failure (EF 60 to 65%, TTE 2021), valvular heart disease (mild AR, mild to moderate MR, moderate TR), pulmonary hypertension, A. fib not on anticoagulation, hypertension, hyperlipidemia, endometrial cancer status post surgery, left breast cancer status post surgery, chemotherapy, tamoxifen Rx, myelodysplastic syndrome ongoing chemotherapy, chronic pancytopenia (baseline hemoglobin 7-8), DM2 insulin requiring, CRI (baseline creatinine 1.5), inflammatory arthritis on chronic steroid Rx, past tobacco abuse. Last confinement 2 weeks ago for decompensated heart failure. Patient discharged to rehab and was just discharged home today. Last confinement 2 weeks ago for decompensated heart failure. Patient discharged to rehab and was just discharged home today. Fluids has been coming off leading to weight loss since rehab stay as per patient. Beta-elvin increased in dose follow discharge to rehab facility as per patient. Patient had chemotherapy this afternoon at [facility].. Blood pressure noted to be low. IV fluids had to be given at the [facility]. Patient later noted increasing shortness of breath at home. No chest pain, no cough symptoms. BiPAP initiated at the ER. IV Bumex and neb treatment administered at the ER. Patient currently feeling much better. 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 Admission Exam Per Admitting Provider Physical Exam Physical Exam: GENERAL: Slightly anxious, slightly uncomfortable, obese, no respiratory distress SKIN: Pallor,, warm HEENT: Pale palpebral conjunctivae, no ptosis, dry buccal mucosa, BiPAP in place short neck, NECK : Supple, no tenderness CHEST : Decreased breath sounds, no tenderness HEART : Irregular, no obvious murmurs ABDOMEN: Some distention, nontender EXTREMITIES : Bilateral LE swelling, no LE tenderness, no other conspicuous deformities noted NEUROLOGIC : Coherent, no facial asymmetry, slightly hard of hearing, no other gross focality Principal Diagnosis Acute hypoxic respiratory failure Acute on chronic diastolic CHF Valvular Heart Disease ALIX on CKD IV Atrial fibrillation RVR Pancytopenia /MDS with Excess blasts: Transfusion dependent Cervicalgia Discharge Data Allergies Allergy/AdvReac Type Severity Reaction Status Date / Time hydrocodone Allergy Mild UNKNOWN Verified 12/11/21 22:01 "HAPPENED LONG TIME AGO" phenol Allergy Mild LOCALIZED Verified 12/11/21 22:01 RASH AT INJECTION SITE protamine Allergy Mild LOCALIZED Verified 12/11/21 22:01 RASH AT INJECTION SITE sodium phosphate Allergy Mild LOCALIZED Verified 12/11/21 22:01 RASH AT INJECTION SITE zinc Allergy Mild LOCALIZED Verified 12/11/21 22:01 RASH AT INJECTION SITE hydroxychloroquine AdvReac Mild "BURPED Verified 12/11/21 22:01 FOR DAYS AND TORE MY STOMACH UP" Consultations 12/11/21 23:17 ED Decision to Admit Stat 12/12/21 01:33 Consult Cardiology Routine 12/15/21 08:41 Consult Oncology Routine Ordered Studies 12/15/21 10:27 CT cervical spine wo con Urgent Hospital Course (1) Acute hypoxemic respiratory failure: Acute hypoxic respiratory failure Acute on chronic diastolic CHF H/O Diastolic dysfunction, Pulmonary hypertension Valvular Heart Disease Received fluid overload from bolus given [facility] due to low blood pressure --CXR:Cardiomegaly with persistent pulmonary edema and a moderate right pleural effusion. --Echo on 11/11/2021: EF: 60-65%, mild concentric LVH, aortic valve sclerosis without stenosis, mild AR, mild to moderate MR, moderate TR Received IV Lasix Resumed home diuretics--bumetanide, spironolactone Monitor I's and O's, daily weight Continue supplemental oxygen as needed May need 2 step prior to discharge Appreciate Cariology Input Weaned off of supplemental oxygen Add IV Lasix as needed Repeat CXR showed slight improvement in pulmonary edema, bibasilar opacities with B/L effusions Normal Procalcitonin Monitor volume status Continue home diuretics Saturating well on room air ALIX on CKD IV Baseline Cr ~1.6 ? Cardiorenal syndrome Troponin elevation likely demand ischemia due to ALIX, CHF Monitor renal function Avoid nephrotoxic agents as able Consider nephrology evaluation if creatinine continues to worsen Creatinine 1.7 today Atrial fibrillation RVR Currently not on anticoagulation due to bleeding risk given pancytopenia/ MDS/Ongoing chemotherapy Continue Cardizem, metoprolol IV Lopressor PRN Cardiology on board Hyperlipidemia on statin Endometrial cancer S/P surgery Left breast cancer S/P surgery, chemotherapy, tamoxifen Rx Pancytopenia /MDS with Excess blasts: Transfusion dependent Follows with Had multiple transfusions previously Monitor CBC S/P PRBC, platelets transfusion No bleeding issues Appreciate Hematology/Oncology Input Nieves on chemotherapy 2 of 5 azacitidine Overall poor prognosis Keep hemoglobin > 8 and Platelets > 20k Next chemotherapy likely in 1 month as per Oncology DM II HbA1C:7.14 Oct 2021 Continue Insulin Monitor BGs Consulted glycemic pharmacist to help with management Cervicalgia Inflammatory arthritis on chronic steroid Rx --CT Neck:No acute cervical spine fracture or subluxation. Moderate multilevel degenerative disc disease and facet arthrosis within the cervical spine. Continue Prednisone Voltaren Gel PRN DVT Px: SCDs Re: Thrombocytopenia Code Status Full code Disposition Needs rehab placement Total Time Total Time Spent Total Time Spent (In Minutes): 52 minutes Discharge Plan Discharge Items Patient Disposition: Transfer Inpatient Rehab Fac Reason For Visit: RESP FAILURE Discharge Diagnosis: Acute hypoxic respiratory failure Acute on chronic diastolic CHF Valvular Heart Disease ALIX on CKD IV Atrial fibrillation RVR Pancytopenia /MDS with Excess blasts: Transfusion dependent Cervicalgia Condition on Discharge: Fair Activity: Per Instructions section Exercise/Sports: Gradually increase as tolerated Non-emergency contact: Primary Care Provider, Luggage Liner and Oncologist Call non-emergency contact if: you have any medication questions, your symptoms worsen, your pain is concerning for you and you have a fever Follow-up/Referrals: [facility] [Primary Care Provider] - Diet: Carb Consistent or DM2 and Heart Healthy Fluids: 1800ml (7 cups) Addtl Attending Provider Instructions: Follow-up with your primary care physician in 1 week upon discharge from rehab facility Follow-up with your oncologist in 3-4 weeks Follow-up with your furnace stock inspector in 2-3 weeks --Get CBC in 1 week and follow up with your Oncologist for Transfusion as needed Seek immediate medical attention if your symptoms reoccur or worsen Please take all medications as instructed on discharge list below. Please call if you have any questions or problems. You can reach a [facility] hospitalist on duty at [facility] 24 hours a day by calling [phone] Call your Primary Care doctor if any of the following symptoms or problems start or get worse: * Shortness of breath or difficulty breathing * Wake up at night short of breath * Chest pain * Cough * Swelling of your hands, feet, or legs * More fatigued or tired with your normal activity * Palpitations - sudden fast heart beats WEIGHT * Weigh yourself every morning after using the bathroom. * Use the same scale. * Wear the same amount of clothing. * Write your weight down on a chart. * Call your Primary Care doctor if you gain more than 2-3 pounds in 1-2 days. MEDICATIONS * Use this discharge instruction sheet for medication instructions. * Take your medications at the time your doctor ordered. * Do not skip a dose of your medicines. * If you miss a dose of medicine, take it as soon as possible, but DO NOT DOUBLE A DOSE. * Read your medicine information when you get home. * Know all of the side effects of your medicine. If in doubt, ask your pharmacist * Call your Primary Care doctor's office if you have any side effects. * Be sure all of your doctors know what medicine and herbs you take (including cold, flu, and herbal medicine). Take the following with you to your follow-up doctor appointments: * Weight Chart * Medication List * List of questions Do not drink excessive alcohol, beer or wine. Pending Studies at Discharge: No Stand-Alone Forms: My [facility] [employer] Skilled Items Patient informed of condition?: Yes DNR: No Discharge Level of Care: Acute rehab Communicable Disease: No Discharge Prognosis: Stable Lines: None Urinary Catheter: No Medications and DC Order Prescriptions: Continued acetaminophen 500 mg capsule 1,000 mg PO Q8H PRN (Reason: Pain) RF: 0 docusate sodium 100 mg capsule 100 mg PO BID RF: 0 pantoprazole 40 mg tablet,delayed release (DR/EC) 40 mg PO DAILY RF: 0 spironolactone 25 mg tablet 50 mg PO DAILY RF: 0 prednisone 5 mg tablet 5 mg PO DAILY RF: 0 bumetanide 1 mg tablet 2 mg PO BID RF: 0 allopurinol 300 mg tablet 300 mg PO DAILY RF: 0 loratadine 10 mg Tablet 10 mg PO DAILY RF: 0 escitalopram oxalate 10 mg tablet 10 mg PO DAILY RF: 0 diltiazem HCl 240 mg capsule,extended release 24hr 240 mg PO DAILY RF: 0 insulin asp prt-insulin aspart [Novolog Mix 70-30FlexPen U-100] 100 unit/mL (70-30) insulin pen 28 unit subcut QDD RF: 0 insulin NPH isoph U-100 human 100 unit/mL (3 mL) Insulin Pen See Rx Instructions .ROUTE .COMPLEX RF: 0 atorvastatin 20 mg tablet 20 mg PO DAILY RF: 0 magnesium oxide 400 mg (241.3 mg magnesium) Tablet 400 mg PO DAILY Qty: 0 RF: 0 Changed metoprolol succinate 50 mg tablet extended release 24 hr 50 mg PO BID Qty: 0 RF: 0 Discontinued metoprolol succinate 100 mg tablet extended release 24 hr 100 mg PO QAM RF: 0 rabeprazole 20 mg tablet,delayed release (DR/EC) 20 mg PO QAM RF: 0 Discharge Orders: Discharge Order (Routine); Ordered 12/17/21 Ordered By: Roger Ca Admission Data Admit Date/Time: 12/12/21 00:09 Attending Provider: Roger Ca Admit Provider: Chuck Perez Primary Care Provider: [facility] Other Providers: Chuck Perez ; Noé Clayton ; Sohail Romeo ; Jared Mancera ; Lars Colvin ; Praneeth Dowell ; Garrett Jeffrey Jr ; Juliocesar Pisano ; Nicolette Graf ; Jeanie Ferrer ; Kristian Judd ; Alejandro Lyn ; William Burrell ; Karley Andre ; Bell Thomason ; Bong Simon ; Moises Reeves Michael K. ; Polo Ring ; Lars Reid V. ; Makayla Barrientos ; [facility]
[2021-12-17] MEDS ORDERED: INSULIN HUMAN NPH SC SCH (17:00)
== END 2021-12-17 16:54 | DRG 291 ==
LOC: ED 21:10 → 2S 12-12 00:09

== ENCOUNTER 2022-01-17 14:07 | Inpatient (IN) ==
--- NOTE | 2022-01-17 15:04 | CT Scan Report ---
CT head/brain wo con CLINICAL HISTORY: 81 years-old Female with weak/dizzy. Acute weakness with dizziness TECHNIQUE: Multiple axial CT images of the head were obtained without contrast. A dose lowering tech nique was utilized adhering to the principles of ALARA. CT DOSE: 729.78 mGycm COMPARISON: 11/15/2021 FINDINGS: No acute intracranial hemorrhage, midline shift, intracranial mass, hydrocephalus, territorial ischem ia or abnormal extra-axial collection. Age-related involutional changes with ex vacuo ventriculomegal y. White matter hypodensities suggest chronic microvascular ischemic disease. Motion degraded study. Cerebral vascular calcifications. The calvarium is intact. Prior bilateral lens repair. The paranasal sinuses, mastoid air cells, and m iddle ear cavities are clear. IMPRESSION: No acute intracranial abnormality. ACT 112: Negative or not required by law. The above report was generated using voice recognition software. It may contain grammatical, syntax o r spelling errors. Electronically signed by: Trav Marcelo M.D. 01/17/2022 3:03 PM
--- NOTE | 2022-01-17 15:25 | XRay Report ---
SINGLE VIEW CHEST CLINICAL HISTORY: Generalized weakness FINDINGS: 2 AP, portable, upright chest radiographs are compared to study dated 12/15/2021. Correlation is made with chest CT dated 08/05/2021. The heart is enlarged noting atherosclerotic calcification of the thoracic ureter. There is pulmonary vascular congestion. There is a small right pleural effusion and bibasilar atelectasis. No pneumothorax is seen. The skeletal structures are osteopenic. The bony thorax is grossly intact. IMPRESSION: 1. Cardiomegaly with evidence of congestive failure. 2. Small right pleural effusion. ACT 112: Negative or not required by law. Electronically signed by: Ritesh Hirsch M.D. 01/17/2022 3:24 PM
--- NOTE | 2022-01-17 15:29 | XRay Report ---
XR knee RT 3V HISTORY: 81 years-old Female fall.contusion acute right knee pain status post fall COMPARISON: 01/17/2009 TECHNIQUE: 3 views the right knee FINDINGS: Chondrocalcinosis. Mild medial with mild to moderate lateral and moderate patellofemoral compartment osteoarthritis has progressed from the prior study. Small joint effusion. No acute fracture, dislocat ion or osseous erosion. Vascular calcifications are noted. IMPRESSION: Small joint effusion without acute fracture. ACT 112: Negative or not required by law. The above report was generated using voice recognition software. It may contain grammatical, syntax o r spelling errors. Electronically signed by: Trav Marcelo M.D. 01/17/2022 3:28 PM
--- NOTE | 2022-01-17 15:30 | Electrocardiogram Report ---
Test Reason : Blood Pressure : / mmHG Vent. Rate : 074 BPM Atrial Rate : 220 BPM P-R Int : 000 ms QRS Dur : 076 ms QT Int : 388 ms P-R-T Axes : 000 119 147 degrees QTc Int : 430 ms Atrial fibrillation Right axis deviation Low voltage QRS Abnormal ECG When compared with ECG of 12-DEC-2021 13:43, QRS axis Shifted right Nonspecific T wave abnormality, improved in Inferior leads T wave inversion now evident in Lateral leads Confirmed by Alejandro Lyn ([id number] on 01/17/2022 3:30:08 PM Referred By: REFERRED SELF Confirmed By:Navi Lyn
[2022-01-17 15:51] LABS: Basophils # (auto) 0.01 K/uL (0-0.2); Basophils % (auto) 0.5 %; Giant Platelets 3+; Hematocrit (blood only) 23.9 % (34.1-44.9); Hemoglobin 8.1 g/dl (12.0-16.0); Immature Granulocytes # (auto) 0.08 K/uL (0.00-0.02); Immature Granulocytes % (auto) 4.2 %; Lymphocytes # (auto) 0.13 K/uL (1.2-3.4); Lymphocytes % (auto) 6.9 %; Mean Corpuscular Hemoglobin 28.6 pg (25.0-34.0); Mean Corpuscular Hgb Conc 33.9 g/dL (32.0-36.0); Mean Corpuscular Volume 84.5 fL (80.0-100.0); Monocytes # (auto) 0.13 K/uL (0.24-0.82); Monocytes % (auto) 6.9 %; Neutrophils # (auto) 1.54 K/uL (1.4-6.5); Neutrophils % (auto) 81.5 %; Platelet Count 19 K/uL (130-400); Platelet Estimate Signific. Decreased (Normal); RDW Coefficient of Variation 14.1 % (11.5-14.5); RDW Standard Deviation 43.8 fL (36.4-46.3); Red Blood Count 2.83 M/uL (3.93-5.22); Toxic Vacuolation 1+; White Blood Count 1.89 K/ul (4.8-10.8)
[2022-01-17 15:53] LABS: Albumin Globulin Ratio 1.9 (0.9-2); Albumin Level 3.4 gm/dl (3.4-5.0); BUN Creatinine Ratio 50.6 (10-20); Calcium 8.1 mg/dl (8.5-10.1); Creatinine Clr Calc Pharmacy 27.9 ml/min; Est GFR (African American) 35.2 ml/min; Est GFR (Non-African American) 30.3 ml/min; Globulin 1.8 gm/dl (2.5-4.0); Magnesium 2.4 mg/dl (1.7-2.4); Potassium 5.4 mmol/L (3.5-5.1); Total Protein 5.2 gm/dl (6.0-8.3); Troponin I High Sensitivity 24.7 pg/ml (0-14)
[2022-01-17] MEDS ORDERED: NovoLIN-R INSULIN PER UNIT CHARGE IV STA (16:08)
[2022-01-17] MEDS ORDERED: SODIUM CHLORIDE 0.9% 500 ML IV SCH (16:15)
--- NOTE | 2022-01-17 16:24 | Emergency Department Note ---
Impression & Plan Weakness, Anemia, A-fib, Hyponatremia, CKD (chronic kidney disease), stage III, CHF (congestive heart failure) ED Provider Note Provider: Dg Hamilton MD DATE OF SERVICE: 01/17/2022 CHIEF COMPLAINT: Referred from [facility], weak HISTORY OF PRESENT ILLNESS: Patient is a 81-year-old female history of diastolic heart failure, pulmonary hypertension, A. fib not anticoagulation, hypertension, endometrial, breast cancer, myelodysplastic syndrome on chemotherapy, chronic pancytopenia, type 2 diabetes, CKD, recurrent recurrent anemia requiring transfusion presenting today referred from the [facility] where she received 2 units of blood today. Patient was noted to have some low blood pressures and to be weak. She had a syncopal episode at home prior to this. After transfusion today she states she feeling bit better but M2 thought she should still be evaluated thus came here. Denies significant pain. Did not fall a week and a half ago and has some bruising on her lower legs and knees but states she was able to get up and did not strike her head. Patient denies fever or URI symptoms. Patient states she did not take her insulin today. Patient states she often requires transfu sions almost weekly. REVIEW OF SYSTEMS: A total of 10 review of systems was obtained and negative e xcept as stated above in the HPI. PAST MEDICAL HISTORY: As noted above MEDICATIONS:reviewed home medication list SOCIAL HISTORY:lives at home by her self, family near by PHYSICAL EXAM: GENERAL: alert and oriented in no acute distress on stretcher, fatigued in appearance Head: normocephalic and atraumatic EYES: No injection, discharge or icterus. NECK: Trachea midline. Supple. ENT: Mucous membranes pink and moist. LUNGS: Airway patent. No retractions. Breath sounds clear with diminished bases HEART: Regular rate and rhythm. No chest wall tenderness ABDOMEN: Soft and non-tender, without guarding or rebound. SKIN: Acyanotic, warm, dry, with contusions to the bilateral shins noted healing. No open wounds. Some contusion to right lateral knee. EXTREMITIES: Without swelling, tenderness or deformity NEUROLOGICAL: No focal deficits. No aphasia. No facial droop or slurred speech. Normal strength and tone in the extremities. Sensation to gross touch normal. Ambulatory. EK beats minute atrial fibrillation with a right axis. No acute ST segment elevation noted with QTC of 430. No PVC noted CONTINUOUS CARDIAC MONITORING: was ordered and showed a heart rate of 70s-80s bpm in a fib GCS 15. Patient's laboratory studies and imaging reviewed. Differential includes Infection, dehydration, metabolic abnormality, hypo/hyperglycemia, electrolyte disturbance, anemia, hypoxia, cardiac sources, intracerebral event, toxicologic, neurologic, as well as other pathologies. IMPRESSION/MEDICAL DECISION MAKING: Reviewed prior medical record with significant hospitalization with heart failure recently. Received 2 units of blood earlier and hemoglobin is improved. Still with thrombocytopenia and leukopenia here. Sodium downtrending from yesterday with some slight hyperkalemia. Some pseudohyponatremia but minimal his glucose is only in the 400s. Doubt DKA. We will gently give some IV fluids. No evidence of HHS/DKA. CT of the head without acute findings given the low platelet count and history of fall. Has some dizziness and syncope earlier but again did not fall. Likely related to the anemia as well as her electrolyte abnormalities. 1 to be cautious with fluid although she does not appear significantly fluid overloaded given the history 1 to be gentle with hydration and thus started on maintenance IV fluids. Discussed with the patient and family at bedside. Recommended further care here at the hospital. Hospitalist contacted. DIAGNOSIS: Weakness, syncope, pancytopenia, hyponatremia, afib, leg contusions, hyperglycemia secondary to type 2 dm DISPOSITION: Hospitalist will evaluate Patient was agreeable with this plan. Past Med/Surg History Medical History A-fib Acute hyperkalemia Acute hypokalemia Bradycardia CKD (chronic kidney disease), stage III Diabetes Elevated troponin I level GI bleed Hx of pneumococcal pneumonia Hypertension Hypomagnesemia Insulin dependent diabetes mellitus Malignant neoplasm of central portion of female breast (10/01/11) "Left breast pain Finding of a left breast mass Status post biopsy revealing infiltrating ductal carcinoma Status post partial mastectomy and sentinel lymph node biopsy Pathologic stage [id number] Estrogen receptor positive, progesterone receptor positive, HER-2/abelardo negative Status post completion of radiation therapy 04/08/2012 received 6120 cGy" Myelodysplastic syndrome with 5 q minus Surgical History History of hysterectomy History of lumpectomy Hx of cholecystectomy Family History Other Cancer Diabetes Social History Smoking Status: Never smoker Second Hand Exposure: No; Do You Dip or Chew Tobacco: No; Hx Alcohol Use: No Hx Substance Use: No Preferred Language: Norwegian Communication Ability: Effective Pharmacy Operations Specialist Required: No Beliefs That Will Affect Care: None marital status: / Current Living Situation: Alone Current Living Situation Comment: Home alone How many Children do You have: 3 Other Information That Helps Us Care for You: No Feels Safe at Home: Yes Safety Concerns: Feels Safe At This Time Assistive Devices: Glasses and Walker Allergies Allergies Allergy/AdvReac Type Severity Reaction Status Date / Time hydrocodone Allergy Mild UNKNOWN Verified 01/17/22 08:45 "HAPPENED LONG TIME AGO" phenol Allergy Mild LOCALIZED Verified 01/17/22 08:45 RASH AT INJECTION SITE protamine Allergy Mild LOCALIZED Verified 01/17/22 08:45 RASH AT INJECTION SITE sodium phosphate Allergy Mild LOCALIZED Verified 01/17/22 08:45 RASH AT INJECTION SITE zinc Allergy Mild LOCALIZED Verified 01/17/22 08:45 RASH AT INJECTION SITE hydroxychloroquine AdvReac Mild "BURPED Verified 01/17/22 08:45 FOR DAYS AND TORE MY STOMACH UP" Home Meds Home Medications Medication Instructions Recorded Confirmed allopurinol 300 mg tablet 300 mg PO DAILY 10/15/21 01/17/22 bumetanide 1 mg tablet 1 mg PO BID 10/15/21 01/17/22 diltiazem HCl 240 mg 240 mg PO DAILY 10/15/21 01/17/22 capsule,extended release 24 hr escitalopram oxalate 10 mg tablet 10 mg PO DAILY 10/15/21 01/17/22 loratadine 10 mg tablet 10 mg PO DAILY 10/15/21 01/17/22 prednisone 5 mg tablet 5 mg PO DAILY 10/15/21 01/17/22 atorvastatin 20 mg tablet 20 mg PO DAILY 11/15/21 01/17/22 acetaminophen 500 mg capsule 1,000 mg PO Q8H PRN Pain 12/10/21 01/17/22 docusate sodium 100 mg capsule 100 mg PO BID 12/10/21 01/17/22 pantoprazole 40 mg tablet,delayed 40 mg PO DAILY 12/10/21 01/17/22 release spironolactone 25 mg tablet 50 mg PO DAILY 12/10/21 01/17/22 insulin NPH isoph U-100 human 100 See Rx Instructions .Route .COMPLEX 12/12/21 01/17/22 unit/mL (3 mL) subcutaneous pen Previous Rx's Medication Instructions Recorded magnesium oxide 400 mg (241.3 mg 400 mg PO DAILY #0 tabs 11/27/21 magnesium) tablet metoprolol succinate 50 mg 50 mg PO BID #0 tabs 12/17/21 tablet,extended release 24 hr Results & Data (ED) Vital Signs Vital Signs - 24 hr 01/17/22 14:13 01/17/22 14:25 01/17/22 14:50 Temperature 36.4 C L Temperature Source Temporal Artery Scan Pulse Rate 85 Pulse Rate [Apical] 72 Pulse Rhythm Regular Pulse Strength Normal Respiratory Rate 20 14 Respiratory Effort / Characteristics Non-Labored Spontaneous Respiratory Depth Normal Respiratory Pattern Regular Blood Pressure 78/40 L Blood Pressure [Right Arm] 100/66 Blood Pressure Mean 52 Blood Pressure Mean [Right Arm] 77 Blood Pressure Position Sitting Blood Pressure Position [Right Arm] Lying Pulse Oximetry 92 96 Oxygen Delivery Method Room Air Room Air Room Air Sepsis Recent Fever Within 48 Hours No Sepsis New/Unexplained Change in Mental Status No Sepsis Action Taken by Nursing No Action Required 01/17/22 14:51 Temperature Temperature Source Pulse Rate Pulse Rate [Apical] Pulse Rhythm Pulse Strength Respiratory Rate Respiratory Effort / Characteristics Respiratory Depth Respiratory Pattern Blood Pressure Blood Pressure [Right Arm] Blood Pressure Mean Blood Pressure Mean [Right Arm] Blood Pressure Position Blood Pressure Position [Right Arm] Pulse Oximetry 97 Oxygen Delivery Method Room Air Sepsis Recent Fever Within 48 Hours Sepsis New/Unexplained Change in Mental Status Sepsis Action Taken by Nursing Laboratory Data Result diagrams: 01/17/22 14:40 01/17/22 14:40 Lab Results 01/17/22 01/17/22 01/17/22 Range/Units 14:40 14:40 14:40 WBC 1.89 L (4.8-10.8) K/ul RBC 2.83 L (3.93-5.22) M/uL Hgb 8.1 L (12.0-16.0) g/dl Hct 23.9 L (34.1-44.9) % MCV 84.5 (80.0-100.0) fL MCH 28.6 (25.0-34.0) pg MCHC 33.9 (32.0-36.0) g/dL RDW Std Deviation 43.8 (36.4-46.3) fL RDW Coeff of Griffin 14.1 (11.5-14.5) % Plt Count 19 L* (130-400) K/uL Immature Gran % (Auto) 4.2 % Neut % (Auto) 81.5 % Lymph % (Auto) 6.9 % Ray % (Auto) 6.9 % Eos % (Auto) 0.0 % Baso % (Auto) 0.5 % Neut # (Auto) 1.54 (1.4-6.5) K/uL Lymph # (Auto) 0.13 L (1.2-3.4) K/uL Ray # (Auto) 0.13 L (0.24-0.82) K/uL Eos # (Auto) 0.00 (0-0.50) K/uL Baso # (Auto) 0.01 (0-0.2) K/uL Immature Gran # (Auto) 0.08 H (0.00-0.02) K/uL Toxic Vacuolation 1+ Platelet Estimate Signific. Decreased L (Normal) Giant Platelets 3+ Sodium 124 L (136-145) mmol/L Potassium 5.4 H (3.5-5.1) mmol/L Chloride 92 L (98-107) mmol/L Carbon Dioxide 24 (21-32) mmol/L Anion Gap 8 (3-11) BUN 81 H (6-23) mg/dl Creatinine 1.60 H (0.6-1.2) mg/dl Est Cr Clr Drug Dosing 27.9 ml/min Est GFR ( Amer) 35.2 ml/min Est GFR (Non-Af Amer) 30.3 ml/min BUN/Creatinine Ratio 50.6 H (10-20) Glucose 411 H* (70-99(Fasting)) mg/dl Calcium 8.1 L (8.5-10.1) mg/dl Magnesium 2.4 (1.7-2.4) mg/dl Total Bilirubin 2.0 H (0.2-1.0) mg/dl AST 7 L (13-39) U/L ALT 9 (7-52) U/L Alkaline Phosphatase 89 (34-104) U/L Troponin I High Sens 24.7 H (0-14) pg/ml Total Protein 5.2 L (6.0-8.3) gm/dl Albumin 3.4 (3.4-5.0) gm/dl Globulin 1.8 L (2.5-4.0) gm/dl Albumin/Globulin Ratio 1.9 (0.9-2) TSH 2.089 (0.300-4.500) uIu/ml Urine Color Urine Appearance (Clear) Urine pH (4.5-7.5) Ur Specific [place] (1.000-1.030) Urine Protein (Negative) Urine Glucose (UA) (Negative) Urine Ketones (Negative) Urine Blood (Negative) Urine Nitrite (Negative) Urine Bilirubin (Negative) Urine Urobilinogen (Negative) Ur Leukocyte Esterase (Negative) Urine WBC (Auto) (0-5) /hpf Urine RBC (Auto) (0-4) /hpf U Hyaline Cast (Auto) (0-5) /lpf U Epithel Cells (Auto) (0-5) /lpf Urine Bacteria (Auto) (Negative) SARS-CoV-2, RNA, NAAT (NEGATIVE) 01/17/22 01/17/22 Range/Units 15:09 16:05 WBC (4.8-10.8) K/ul RBC (3.93-5.22) M/uL Hgb (12.0-16.0) g/dl Hct (34.1-44.9) % MCV (80.0-100.0) fL MCH (25.0-34.0) pg MCHC (32.0-36.0) g/dL RDW Std Deviation (36.4-46.3) fL RDW Coeff of Griffin (11.5-14.5) % Plt Count (130-400) K/uL Immature Gran % (Auto) % Neut % (Auto) % Lymph % (Auto) % Ray % (Auto) % Eos % (Auto) % Baso % (Auto) % Neut # (Auto) (1.4-6.5) K/uL Lymph # (Auto) (1.2-3.4) K/uL Ray # (Auto) (0.24-0.82) K/uL Eos # (Auto) (0-0.50) K/uL Baso # (Auto) (0-0.2) K/uL Immature Gran # (Auto) (0.00-0.02) K/uL Toxic Vacuolation Platelet Estimate (Normal) Giant Platelets Sodium (136-145) mmol/L Potassium (3.5-5.1) mmol/L Chloride (98-107) mmol/L Carbon Dioxide (21-32) mmol/L Anion Gap (3-11) BUN (6-23) mg/dl Creatinine (0.6-1.2) mg/dl Est Cr Clr Drug Dosing ml/min Est GFR ( Amer) ml/min Est GFR (Non-Af Amer) ml/min BUN/Creatinine Ratio (10-20) Glucose (70-99(Fasting)) mg/dl Calcium (8.5-10.1) mg/dl Magnesium (1.7-2.4) mg/dl Total Bilirubin (0.2-1.0) mg/dl AST (13-39) U/L ALT (7-52) U/L Alkaline Phosphatase (34-104) U/L Troponin I High Sens (0-14) pg/ml Total Protein (6.0-8.3) gm/dl Albumin (3.4-5.0) gm/dl Globulin (2.5-4.0) gm/dl Albumin/Globulin Ratio (0.9-2) TSH (0.300-4.500) uIu/ml Urine Color Yellow Urine Appearance Clear (Clear) Urine pH 7.0 (4.5-7.5) Ur Specific [place] 1.012 (1.000-1.030) Urine Protein Negative (Negative) Urine Glucose (UA) Trace H (Negative) Urine Ketones Negative (Negative) Urine Blood Trace H (Negative) Urine Nitrite Negative (Negative) Urine Bilirubin Negative (Negative) Urine Urobilinogen Negative (Negative) Ur Leukocyte Esterase Negative (Negative) Urine WBC (Auto) 1-5 (0-5) /hpf Urine RBC (Auto) 0-4 (0-4) /hpf U Hyaline Cast (Auto) 1-5 (0-5) /lpf U Epithel Cells (Auto) 10-20 H (0-5) /lpf Urine Bacteria (Auto) Negative (Negative) SARS-CoV-2, RNA, NAAT NEGATIVE (NEGATIVE) Administered Medications Discontinued Medications Sodium Chloride (Nss) 500 mls @ 80 mls/hr IV .[id number] LEONA Stop: 02/16/22 16:14 Last Admin: 01/17/22 16:30 Dose: 80 mls/hr Documented By: LUPIS Insulin Human NPH (Insulin Human Nph) 20 units SC NOW ONE Stop: 01/17/22 18:01 Last Admin: 01/17/22 18:38 Dose: 20 units Documented By: MONCHO Co-signed By: KIKI Insulin Human Regular (Novolin-R Insulin Per Unit Charge) 8 units IV NOW STA Stop: 01/17/22 16:09 Last Admin: 01/17/22 16:29 Dose: 8 units Documented By: LUPIS Co-signed By: CLAYTON Imaging Data Radiologist's Impression: Chest X-Ray 01/17/22 14:44 SINGLE VIEW CHEST CLINICAL HISTORY: Generalized weakness FINDINGS: 2 AP, portable, upright chest radiographs are compared to study dated 12/15/2021. Correlation is made with chest CT dated 08/05/2021. The heart is enlarged noting atherosclerotic calcification of the thoracic ureter. There is pulmonary vascular congestion. There is a small right pleural effusion and bibasilar atelectasis. No pneumothorax is seen. The skeletal structures are osteopenic. The bony thorax is grossly intact. IMPRESSION: 1. Cardiomegaly with evidence of congestive failure. 2. Small right pleural effusion. ACT 112: Negative or not required by law. Electronically signed by: Ritesh Hirsch M.D. 01/17/2022 3:24 PM Knee X-Ray 01/17/22 14:44 XR knee RT 3V HISTORY: 81 years-old Female fall.contusion acute right knee pain status post fall COMPARISON: 01/17/2009 TECHNIQUE: 3 views the right knee FINDINGS: Chondrocalcinosis. Mild medial with mild to moderate lateral and moderate patellofemoral compartment osteoarthritis has progressed from the prior study. Small joint effusion. No acute fracture, dislocation or osseous erosion. Vascular calcifications are noted. IMPRESSION: Small joint effusion without acute fracture. ACT 112: Negative or not required by law. The above report was generated using voice recognition software. It may contain grammatical, syntax or spelling errors. Electronically signed by: Trav Marcelo M.D. 01/17/2022 3:[address] 01/17/22 14:47 CT head/brain wo con CLINICAL HISTORY: 81 years-old Female with weak/dizzy. Acute weakness with dizziness TECHNIQUE: Multiple axial CT images of the head were obtained without contrast. A dose lowering technique was utilized adhering to the principles of ALARA. CT DOSE: 729.78 mGycm COMPARISON: 11/15/2021 FINDINGS: No acute intracranial hemorrhage, midline shift, intracranial mass, hydrocephalus, territorial ischemia or abnormal extra-axial collection. Age- related involutional changes with ex vacuo ventriculomegaly. White matter hypodensities suggest chronic microvascular ischemic disease. Motion degraded study. Cerebral vascular calcifications. The calvarium is intact. Prior bilateral lens repair. The paranasal sinuses, mastoid air cells, and middle ear cavities are clear. IMPRESSION: No acute intracranial abnormality. ACT 112: Negative or not required by law. The above report was generated using voice recognition software. It may contain grammatical, syntax or spelling errors. Electronically signed by: Trav Marcelo M.D. 01/17/2022 3:03 PM Discharge Plan Visit Data Chief Complaint: Weakness Stated Complaint: WEAKNESS ED Provider: Dg Hamilton Discharge Problem: Weakness, Anemia, A-fib, Hyponatremia, CKD (chronic kidney disease), stage III, CHF (congestive heart failure) Patient Disposition: Admitted As Inpatient Discharge Instructions Interventions: ED Discharge Assessment Last Done: 01/17/22 18:11
[2022-01-17 16:33] LABS: Appearance Urine Clear (Clear); Bacteria Urine Automated Negative (Negative); Bilirubin Urine Negative (Negative); Blood Urine Trace (Negative); Color Urine Yellow; Glucose Urine UA Trace (Negative); Ketones Urine Negative (Negative); Leukocyte Esterase Urine Negative (Negative); Nitrite Urine Negative (Negative); Protein Urine Negative (Negative); RBC Urine Automated 0-4 /hpf (0-4); Specific Gravity Urine 1.012 (1.000-1.030); Urobilinogen Urine Negative (Negative)
--- NOTE | 2022-01-17 16:37 | History & Physical Report ---
Date of Service January 17, 2022 Assessment & Plan (1) Generalized weakness: (2) Symptomatic anemia: (3) MDS (myelodysplastic syndrome): (4) Pancytopenia: (5) Hyponatremia: (6) Insulin dependent diabetes mellitus: (7) A-fib: (8) CKD (chronic kidney disease), stage III: Plan This is a 81 yr old F who has a significant PMH of T2DM, Afib off anticoagulation, MDS and chronic pancytopenia, HTN, HLD, gout, inflammatory polyarthritis, hx of breast and uterine ca, CKD 3, hx of covid who presents to ED [facility] by [facility] due to recent fall, worsened serum sodium and generalized weakness. Pt was [facility] today receiving 2U prbc transfusion in setting of MDS. Generalized weakness Symptomatic anemia MDS with pancytopenia admit to med tele pt is s/p 2 unit PRBC today at [facility] sx likely in setting of hgb 6.7, sx are improving since transfusion received gentle fluid in ED consult PT/OT, pt may benefit from placement or rehab as she lives alone at home with multiple medical co morbidities orthostatics daily correct hyperglycemia - may also be playing a factor, pt missed insulin today follow cbc, pt follows with Dr. aBrrientos Chronic Hyponatremia corrected sodium 129-131 repeat bmp @ 2200 to ensure not further dropping received gentle IVF in ED will hold further fluids in setting of 2 units PRBC and hx of Chronic HFpEF if does not further correct with correction of glucose consider further work up Mild hyperkalemia hold aldactone for now, she not on KCL supplements low K diet IDDM2 with hyperglycemia last a1c 7.2 10/16/21 pt missed insulin today NPH, novolog per protocol consult glycemic pharmacy - appreciate their assistance CKD -3 cr baseline 1.6 bun elevated likely in setting of anemia/hypovolemia follow bmp, avoid nephrotoxic agents received 2 unit prbc and IVF in ED monitor closely Chronic HFpEF mostly euvolemic monitor volume status closely with recent transfusion will resume bumex in a.m continue metoprolol hold aldactone for now in setting of hyperk Recent Fall no acute injury bruising to lower ext consult Pt/OT Chronic Afib continue metoprolol, rate controlled not on OAC in setting of MDS Inflammatory Polyarthritis continue steroid DVT PPx: none in setting of MDS, encourage ambulation when able Diet: Carb consistent, Low K, Low Na Full Code PCP: Byron Dispo: med tele, pt may benefit from rehab or possible placement Pt was seen and examined in collaboration with Dr. Lu, please see addendum History of Present Illness Chief Complaint: Referred by [facility] due to recent fall, worsened sodium and inability to care for self at home and weakness. Primary Care Provider: Jose Matthews MD This is a 81 yr old F who has a significant PMH of T2DM, Afib off anticoagulation, MDS and chronic pancytopenia, HTN, HLD, gout, inflammatory polyarthritis, hx of breast and uterine ca, CKD 3, hx of covid who presents to ED 2/2referral by [facility] due to recent fall, worsened serum sodium and generalized weakness. Pt was at [facility] today receiving prbc transfusion in setting of MDS. She complains of being generally weak and dizzy for about a week. She received 2 unit PRBC today. She states her BP was low at [facility]. She states her dizziness and lightheaded is worse in the morning and when she tries to get up and walk at night. When she went to get off the table for CT scan she felt dizzy. She denies f/c/s, chest pain, cough, uri sx, palpitations, hemoptysis, n/v/d, abd pain. She does have constipation and she takes colace for this. She denies dysuria, increased freq or urgency. She does not monitor her BP at home. She denies tobacco use and admits to very rare wine use. Son, Tana, is at bedside. He has a brother and sister and all 3 share POA. Overall appetite has been good. She gets a blood transfusion almost every week. She lives alone and brother lives 35 minutes away. She uses a walker at home. She fell 1.5 weeks ago and lost her balance. She has bruising on her legs but no other falls. She denies hitting her head. She fell into her flower bed. Allergies Allergy/AdvReac Type Severity Reaction Status Date / Time hydrocodone Allergy Mild UNKNOWN Verified 01/17/22 08:45 "HAPPENED LONG TIME AGO" phenol Allergy Mild LOCALIZED Verified 01/17/22 08:45 RASH AT INJECTION SITE protamine Allergy Mild LOCALIZED Verified 01/17/22 08:45 RASH AT INJECTION SITE sodium phosphate Allergy Mild LOCALIZED Verified 01/17/22 08:45 RASH AT INJECTION SITE zinc Allergy Mild LOCALIZED Verified 01/17/22 08:45 RASH AT INJECTION SITE hydroxychloroquine AdvReac Mild "BURPED Verified 01/17/22 08:45 FOR DAYS AND TORE MY STOMACH UP" Home Medications Medication Instructions Recorded Confirmed Type allopurinol 300 mg tablet 300 mg PO DAILY 10/15/21 01/17/22 History bumetanide 1 mg tablet 1 mg PO BID 10/15/21 01/17/22 History diltiazem HCl 240 mg 240 mg PO DAILY 10/15/21 01/17/22 History capsule,extended release 24 hr escitalopram oxalate 10 mg tablet 10 mg PO DAILY 10/15/21 01/17/22 History loratadine 10 mg tablet 10 mg PO DAILY 10/15/21 01/17/22 History prednisone 5 mg tablet 5 mg PO DAILY 10/15/21 01/17/22 History atorvastatin 20 mg tablet 20 mg PO DAILY 11/15/21 01/17/22 History magnesium oxide 400 mg (241.3 mg 400 mg PO DAILY #0 tabs 11/27/21 01/17/22 Rx magnesium) tablet acetaminophen 500 mg capsule 1,000 mg PO Q8H PRN Pain 12/10/21 01/17/22 History docusate sodium 100 mg capsule 100 mg PO BID 12/10/21 01/17/22 History pantoprazole 40 mg tablet,delayed 40 mg PO DAILY 12/10/21 01/17/22 History release spironolactone 25 mg tablet 50 mg PO DAILY 12/10/21 01/17/22 History insulin NPH isoph U-100 human 100 See Rx Instructions .Route .COMPLEX 12/12/21 01/17/22 History unit/mL (3 mL) subcutaneous pen metoprolol succinate 50 mg 50 mg PO BID #0 tabs 12/17/21 01/17/22 Rx tablet,extended release 24 hr Past Med/Surg History Medical History A-fib Acute hyperkalemia Acute hypokalemia Bradycardia CKD (chronic kidney disease), stage III Diabetes Elevated troponin I level GI bleed Hx of pneumococcal pneumonia Hypertension Hypomagnesemia Insulin dependent diabetes mellitus Malignant neoplasm of central portion of female breast (10/01/11) "Left breast pain Finding of a left breast mass Status post biopsy revealing infiltrating ductal carcinoma Status post partial mastectomy and sentinel lymph node biopsy Pathologic stage [id number] Estrogen receptor positive, progesterone receptor positive, HER-2/abelardo negative Status post completion of radiation therapy 04/08/2012 received 6120 cGy" Myelodysplastic syndrome with 5 q minus Surgical History History of hysterectomy History of lumpectomy Hx of cholecystectomy Family History Other Cancer Diabetes Social History Smoking Status: Never smoker Second Hand Exposure: No; Do You Dip or Chew Tobacco: No; Hx Alcohol Use: No Hx Substance Use: No Preferred Language: Citizen Of [place] Communication Ability: Effective Resource Recovery Engineer Required: No Beliefs That Will Affect Care: None marital status: / Current Living Situation: Alone Current Living Situation Comment: Home alone How many Children do You have: 3 Other Information That Helps Us Care for You: No Feels Safe at Home: Yes Safety Concerns: Feels Safe At This Time Assistive Devices: Glasses and Walker Review of Systems Review of Systems: All systems reviewed & are unremarkable except as noted in HPI & below Physical Exam Physical Exam: please refer to Dr. Lu addendum for physical exam findings. Results & Data Results & Data ([facility]) Vital Signs (Past 12 Hours) Vital Signs Temp Pulse Pulse Resp BP BP Pulse Ox 01/17/22 14:51 97 01/17/22 14:50 01/17/22 14:25 72 14 100/66 96 01/17/22 14:13 36.4 C L 85 20 78/40 L 92 O2 Del Method 01/17/22 14:51 Room Air 01/17/22 14:50 Room Air 01/17/22 14:25 Room Air 01/17/22 14:13 Room Air Diagnostic Findings Chest X-Ray 01/17/22 14:44 SINGLE VIEW CHEST CLINICAL HISTORY: Generalized weakness FINDINGS: 2 AP, portable, upright chest radiographs are compared to study dated 12/15/2021. Correlation is made with chest CT dated 08/05/2021. The heart is enlarged noting atherosclerotic calcification of the thoracic ureter. There is pulmonary vascular congestion. There is a small right pleural effusion and bibasilar atelectasis. No pneumothorax is seen. The skeletal structures are osteopenic. The bony thorax is grossly intact. IMPRESSION: 1. Cardiomegaly with evidence of congestive failure. 2. Small right pleural effusion. ACT 112: Negative or not required by law. Electronically signed by: Ritesh Hirsch M.D. 01/17/2022 3:24 PM Knee X-Ray 01/17/22 14:44 XR knee RT 3V HISTORY: 81 years-old Female fall.contusion acute right knee pain status post fall COMPARISON: 01/17/2009 TECHNIQUE: 3 views the right knee FINDINGS: Chondrocalcinosis. Mild medial with mild to moderate lateral and moderate patellofemoral compartment osteoarthritis has progressed from the prior study. Small joint effusion. No acute fracture, dislocation or osseous erosion. Vascular calcifications are noted. IMPRESSION: Small joint effusion without acute fracture. ACT 112: Negative or not required by law. The above report was generated using voice recognition software. It may contain grammatical, syntax or spelling errors. Electronically signed by: Trav Marcelo M.D. 01/17/2022 3:[address] 01/17/22 14:47 CT head/brain wo con CLINICAL HISTORY: 81 years-old Female with weak/dizzy. Acute weakness with dizziness TECHNIQUE: Multiple axial CT images of the head were obtained without contrast. A dose lowering technique was utilized adhering to the principles of ALARA. CT DOSE: 729.78 mGycm COMPARISON: 11/15/2021 FINDINGS: No acute intracranial hemorrhage, midline shift, intracranial mass, hyd rocephalus, territorial ischemia or abnormal extra-axial collection. Age-related involutional changes with ex vacuo ventriculomegaly. White matter hypodensities suggest chronic microvascular ischemic disease. Motion degraded study. Cerebral vascular calcifications. The calvarium is intact. Prior bilateral lens repair. The paranasal sinuses, mastoid air cells, and middle ear cavities are clear. IMPRESSION: No acute intracranial abnormality. ACT 112: Negative or not required by law. The above report was generated using voice recognition software. It may contain grammatical, syntax or spelling errors. Electronically signed by: Trav Marcelo M.D. 01/17/2022 3:03 PM Medications Administered Medication List Sodium Chloride (Nss) 500 mls @ 80 mls/hr IV .[id number] LEONA Stop: 02/16/22 16:14 Last Admin: 01/17/22 16:30 Dose: 80 mls/hr Documented By: MH Discontinued Medications Insulin Human Regular (Novolin-R Insulin Per Unit Charge) 8 units IV NOW STA Stop: 01/17/22 16:09 Last Admin: 01/17/22 16:29 Dose: 8 units Documented By: LUPIS Co-signed By: [place] ECG Rate (beats per minute): 74 Rhythm: atrial fibrillation Additional Comments: qrs x axis r shift, t wave inv evident in lateral leads I and AVL COVID-19 Results Results COVID-19 Adm Lab Results: RBC 2.83 M/uL (3.93-5.22) L 01/17/22 WBC 1.89 K/ul (4.8-10.8) L 01/17/22 Hgb 8.1 g/dl (12.0-16.0) L 01/17/22 Hct 23.9 % (34.1-44.9) L 01/17/22 Plt Count 19 K/uL (130-400) L* 01/17/22 Neutrophils (%) (Auto) 81.5 % 01/17/22 Lymphocytes (%) (Auto) 6.9 % 01/17/22 Monocytes # (Auto) 0.13 K/uL (0.24-0.82) L 01/17/22 Eosinophils # (Auto) 0.00 K/uL (0-0.50) 01/17/22 Immature Granulocyte % (Auto) 4.2 % 01/17/22 Neutrophils # (Auto) 1.54 K/uL (1.4-6.5) 01/17/22 Lymphocytes # (Auto) 0.13 K/uL (1.2-3.4) L 01/17/22 Monocytes # (Auto) 0.13 K/uL (0.24-0.82) L 01/17/22 Eosinophils # (Auto) 0.00 K/uL (0-0.50) 01/17/22 Basophils # (Auto) 0.01 K/uL (0-0.2) 01/17/22 Immature Granulocyte # (Auto) 0.08 K/uL (0.00-0.02) H 01/17 Giant Platelets 3+ 01/17/22 Toxic Vacuolation 1+ 01/17/22 Na 124 mmol/L (136-145) L 01/17/22 K 5.4 mmol/L (3.5-5.1) H 01/17/22 Cl 92 mmol/L (98-107) L 01/17/22 CO2 24 mmol/L (21-32) 01/17/22 Anion Gap 8 (3-11) 01/17/22 BUN 81 mg/dl (6-23) H 01/17/22 Creatinine 1.60 mg/dl (0.6-1.2) H 01/17/22 BUN/Creatinine Ratio 50.6 (10-20) H 01/17/22 Glucose Level 411 mg/dl (70-99(Fasting)) H* 01/17/22 Ca 8.1 mg/dl (8.5-10.1) L 01/17/22 Phosphorus Level 3.9 mg/dl (2.5-4.9) 01/17/22 Total Bilirubin 2.0 mg/dl (0.2-1.0) H 01/17/22 Direct Bilirubin 0.5 mg/dl (0-0.2) H 01/17/22 AST/SGOT 7 U/L (13-39) L 01/17/22 ALT/SGPT 9 U/L (7-52) 01/17/22 Alkaline Phosphatase 89 U/L (34-104) 01/17/22 Total Protein 5.2 gm/dl (6.0-8.3) L 01/17/22 Albumin 3.4 gm/dl (3.4-5.0) 01/17/22 Globulin 1.8 gm/dl (2.5-4.0) L 01/17/22 Albumin/Globulin Ratio 1.9 (0.9-2) 01/17/22 SARS-CoV-2, RNA, NAAT NEGATIVE (NEGATIVE) 01/17/22 Chest X-Ray 01/17/22 Code Status & VTE Plan Code Status FULL CODE VTE Prophylaxis Plan VTE Prophylaxis will be ordered: No Supervising Physician Co-Signing Physician Notes 81-year-old lady with PMH of chronic diastolic heart failure [EF 60 to 65%, 202 TTE], pulm hypertension, A. fib not on anticoagulation due to, bleeding risk given pancytopenia/MDS endometrial cancer status post surgery, left breast cancer status post surgery/chemo/tamoxifen, MDS undergoing chemo, chronic pancytopenia, DM 2 insulin requiring, CRI baseline creatinine 1.6 was [facility]17 to our ED due to patient feeling weak and a recent fall at home/inability to care for herself. Patient reports feeling weak and dizzy since 1 week, reports getting blood transfusion every week, was found to have low blood pressure at [facility], had a fall 1.5 weeks ago while getting out of van but did not hit her head per her, otherwise ROS is negative for fever/acute changes in bowel or bladder habit/sore throat/cough/chest pain/increasing leg swelling/shortness of breath. Admitting labs and imaging reviewed. Hemoglobin 6.7 on 01/16, up to 8.1 today, patient received 2 unit blood transfusion today at [facility] for symptomatic anemia. Sodium of 124 with correction 129, low-sodium diet/high-protein diet/fluid restriction/hold Aldactone for now. Blood glucose was elevated at 411, glycemic pharmacy consult, insulin sliding scale. Update A1c. For high potassium likely secondary to CKD, low potassium diet. Chest x-ray concerning for congestive changes, hence will hold IV fluid which patient is receiving in the ED. X-ray right knee joint with small effusion but no tenderness on exam. CT head with no acute findings. PT/OT, CM to assist with DC planning. Orthostatic vitals for dizziness/history of fall. BMP at 10 PM. Upon Exam GENERAL: Alert and oriented x3. NAD, on RA. Appears ill, frail and weak. HEENT: No pallor, no icterus. Pupils equal, round and reactive to light. Oral mucosa moist. NECK: No JVD, no neck masses. HEART: S1 and S2 heard. Tachycardia. No murmur, no gallop. RESPIRATORY SYSTEM: Normal AP diameter. No accessory muscle use. No wheezing, no crackles. ABDOMEN: Soft, bowel sounds present, nontender, no distention. CENTRAL NERVOUS SYSTEM: No facial droop. Speech is clear. Obeys simple commands. Moves extremities. EXTREMITIES: 1+ BLE edema, no erythema seen. Rt knee bruise. b/l leg bruises. I have seen and examined the patient and have discussed the case with the willie kruger above. I agree with the assessment and plan as stated.
[2022-01-17] MEDS ORDERED: INSULIN HUMAN 70% NPH/30% REGULAR SC STA (17:33)
[2022-01-17] MEDS ORDERED: INSULIN HUMAN NPH SC ONE ×2 (18:00→18:45)
[2022-01-17 18:12] LABS: Bilirubin Direct 0.5 mg/dl (0-0.2); Phosphorus 3.9 mg/dl (2.5-4.9)
[2022-01-17] MEDS ORDERED: ALUMINUM/MAGNESIUM SUSP 30 ML UDC PO PRN (18:18)
[2022-01-17] MEDS ORDERED: GLUCOSE 40% GEL 15 GM TUBE PO PRN (18:18)
[2022-01-17] MEDS ORDERED: ONDANSETRON INJ 2 MG/ML 2 ML VIAL IV PRN (18:18)
[2022-01-17] MEDS ORDERED: PHARMACY GLYCEMIC MGMT CONSULT PRN (18:18)
[2022-01-17] MEDS ORDERED: GLUCAGON FOR INJ 1 MG VIAL SQ PRN (18:18)
[2022-01-17] MEDS ORDERED: CARBOHYDRATES FOR HYPOGLYCEMIA PO PRN (18:18)
[2022-01-17] MEDS ORDERED: DEXTROSE 50% 50 ML SYRINGE IV PRN (18:18)
[2022-01-17] MEDS ORDERED: GLUCOSE 10 TAB/TUBE PO PRN (18:18)
[2022-01-17] MEDS ORDERED: INSULIN HUMAN REGULAR PER UNIT 5 UNITS in SYRINGE 4.95 ML IV ONE (20:30)
[2022-01-17] MEDS: METOPROLOL SUCC 50MG EXT REL TAB PO SCH (20:51)
[2022-01-17] MEDS: DOCUSATE SODIUM 100 MG CAP PO SCH (20:52)
[2022-01-17] MEDS: POLYETHYLENE (MIRALAX) 17 GM PACK PO PRN ×2 (20:52→21:19)
[2022-01-17] MEDS: INSULIN ASPART PER UNIT SC SCH (20:53)
[2022-01-17] MEDS ORDERED: INSULIN HUMAN NPH SC SCH (21:00)
[2022-01-17] MEDS: ACETAMINOPHEN 325 MG TAB PO PRN (21:19)
[2022-01-17 23:37] LABS: BUN Creatinine Ratio 46.5 (10-20); Calcium 7.8 mg/dl (8.5-10.1); Creatinine Clr Calc Pharmacy 28.7 ml/min; Est GFR (African American) 35.4 ml/min; Est GFR (Non-African American) 30.6 ml/min; Potassium 4.6 mmol/L (3.5-5.1)
[2022-01-18] MEDS: INSULIN ASPART PER UNIT SC SCH ×6 (00:24→21:06)
[2022-01-18 06:53] LABS: Albumin Globulin Ratio 1.9 (0.9-2); Albumin Level 3.3 gm/dl (3.4-5.0); Bilirubin,Total 1.9 mg/dl (0.2-1.0); Creatinine Clr Calc Pharmacy 30.9 ml/min; Est GFR (Non-African American) 32.8 ml/min; Globulin 1.7 gm/dl (2.5-4.0); Magnesium 2.3 mg/dl (1.7-2.4); Phosphorus 3.3 mg/dl (2.5-4.9); Potassium 5.1 mmol/L (3.5-5.1)
[2022-01-18 07:00] LABS: Basophils # (auto) 0.01 K/uL (0-0.2); Basophils % (auto) 0.5 %; Dohle Bodies 1+; Giant Platelets 3+; Hematocrit (blood only) 22.8 % (34.1-44.9); Hemoglobin 7.7 g/dl (12.0-16.0); Hypogranular Neutrophils 2+; Immature Granulocytes # (auto) 0.04 K/uL (0.00-0.02); Lymphocytes % (auto) 14.8 %; Mean Corpuscular Hemoglobin 28.6 pg (25.0-34.0); Mean Corpuscular Hgb Conc 33.8 g/dL (32.0-36.0); Mean Corpuscular Volume 84.8 fL (80.0-100.0); Monocytes # (auto) 0.23 K/uL (0.24-0.82); Monocytes % (auto) 11.3 %; Neutrophils # (auto) 1.45 K/uL (1.4-6.5); Neutrophils % (auto) 71.4 %; Platelet Count 17 K/uL (130-400); Platelet Estimate Signific. Decreased (Normal); RDW Standard Deviation 43.3 fL (36.4-46.3); Red Blood Count 2.69 M/uL (3.93-5.22); White Blood Count 2.03 K/ul (4.8-10.8)
[2022-01-18 07:50] LABS: Estimated Average Glucose 171 mg/dl; Hemoglobin A1C 7.6 % (4.5-5.6)
[2022-01-18] MEDS ORDERED: INSULIN HUMAN NPH SC SCH ×2 (08:00→16:30)
[2022-01-18] MEDS: dilTIAZem HCL 240 MG CAPCR PO SCH (09:00)
[2022-01-18] MEDS: BUMETANIDE 1 MG TAB PO SCH ×2 (09:00→20:22)
[2022-01-18] MEDS: allopurinoL 300 MG TAB PO SCH (09:00)
[2022-01-18] MEDS: ATORVASTATIN 20 MG TAB PO SCH (09:00)
[2022-01-18] MEDS: ESCITALOPRAM OXALATE 10 MG TAB PO SCH (09:01)
[2022-01-18] MEDS: LORATADINE 10 MG TAB PO SCH (09:01)
[2022-01-18] MEDS: PANTOprazole 40 MG TAB PO SCH (09:01)
[2022-01-18] MEDS: MAGNESIUM OXIDE 400 MG TAB PO SCH (09:01)
[2022-01-18] MEDS: DOCUSATE SODIUM 100 MG CAP PO SCH ×2 (09:01→20:23)
[2022-01-18] MEDS: METOPROLOL SUCC 50MG EXT REL TAB PO SCH ×2 (09:01→20:23)
[2022-01-18] MEDS: predniSONE 5 MG TAB PO SCH (09:01)
[2022-01-18] MEDS: INSULIN HUMAN NPH SC SCH (09:06)
--- NOTE | 2022-01-18 10:17 | Hospitalist Progress Note ---
Date of Service January 18, 2022 Assessment & Plan (1) Generalized weakness: (2) Symptomatic anemia: (3) MDS (myelodysplastic syndrome): (4) Pancytopenia: (5) Hyponatremia: (6) Insulin dependent diabetes mellitus: (7) A-fib: (8) CKD (chronic kidney disease), stage III: Plan 81 yr old F who has a significant PMH of T2DM, Afib off anticoagulation, MDS and chronic pancytopenia, HTN, HLD, gout, inflammatory polyarthritis, hx of breast and uterine ca, CKD 3, hx of covid who presents [facility] due to recent [facility], worsened serum sodium and generalized weakness. [facility] receiving 2U prbc transfusion in setting of MDS. Generalized weakness Symptomatic anemia MDS with pancytopenia Got 2 unit PRBC at [facility] on [facility] day of presentation Hb is 7.7 today, Platelet is 17K Monitor and transfuse PRN to keep Hb>7 and Plt >10K Reported she had fallen over 1 week ago Get PT/OT eval Chronic Hyponatremia Corrected sodium 129 Hyponatremia in the setting of chronic HFpEF Nephrology consulted Continue fluid restriction and monitor Mild hyperkalemia K was 5.4 on admission Aldactone on hold K is 5.1 today IDDM2 with hyperglycemia Last a1c 7.2 10/16/21 Pt missed insulin on day of admission NPH, novolog per protocol Glycemic pharm CKD -3 Cr at baseline Avoid nephrotoxins. Monitor Chronic HFpEF Appears to be mildly volume overloaded based on physical exam, CXR on presentation Had got 2 PRBC on day of presentation Continue bumex Fluid restriction Recent Fall Bruising to lower ext PT/OT eval Chronic Afib Continue metoprolol, rate controlled Not on OAC in setting of MDS Inflammatory Polyarthritis Continue steroid DVT PPx: none in setting of MDS, encourage ambulation when able Diet: Carb consistent, Low K, Low Na Full Code PCP: Byron Dispo: med tele Admission and Anticipated Discharge Date Admission Date: January 17, 2022 Subjective Patient seen and examined Reports dizziness is resolved this AM Reports she had nausea earlier this AM but has resolved Denied any headache Denied cough, chest pain, SOB Denied abd pain, vomiting, diarrhea Denied freq, urgency, dysuria Physical Exam Constitutional: + well hydrated and + obese; no acute distress Eyes: PERRL, conjunctivae normal, anicteric sclerae ENMT: external ear and nose normal, oropharynx normal Respiratory: normal respiratory effort; no respiratory distress Diminished breath sound lung bases posteriorly Cardiovascular: Rate/Rhythm: + irregularly irregular S1 S2 Gastrointestinal (Abdomen): normal bowel sounds, soft, nontender, no hepatosplenomegaly Musculoskeletal: +pedal edema Skin: Ecchymoses/petechiae on extremities Neurologic: PERRL, EOMI, accommodation nl, no face palsy, no dysarthria Psychiatric: A+Ox3, euthymic affect Results & Data Results & Data ([facility]) Vital Signs (Past 12 Hours) Vital Signs Temp Pulse Pulse Resp BP Pulse Ox Pulse Ox 01/18/22 07:52 36.9 C 18 92 01/17/22 22:19 85 01/18/22 04:07 36.9 C 93 H 18 110/64 95 01/18/22 00:58 95 01/17/22 22:35 36.7 C 87 18 106/55 L 95 O2 Del Method O2 Del Method 01/18/22 07:52 Room Air 01/17/22 22:19 01/18/22 04:07 Room Air 01/18/22 00:58 Room Air 01/17/22 22:35 Room Air Laboratory Results Abnormal lab results 01/17/22 01/17/22 01/17/22 Range/Units 14:40 14:40 16:05 WBC 1.89 L (4.8-10.8) K/ul RBC 2.83 L (3.93-5.22) M/uL Hgb 8.1 L (12.0-16.0) g/dl Hct 23.9 L (34.1-44.9) % Plt Count 19 L* (130-400) K/uL Lymph # (Auto) 0.13 L (1.2-3.4) K/uL [place] # (Auto) 0.13 L (0.24-0.82) K/uL Immature Gran # (Auto) 0.08 H (0.00-0.02) K/uL Platelet Estimate Signific. Decreased L (Normal) Sodium 124 L (136-145) mmol/L Potassium 5.4 H (3.5-5.1) mmol/L Chloride 92 L (98-107) mmol/L BUN 81 H (6-23) mg/dl Creatinine 1.60 H (0.6-1.2) mg/dl BUN/Creatinine Ratio 50.6 H (10-20) Glucose 411 H* (70-99(Fasting)) mg/dl POC Glucose (70-99) mg/dl Hemoglobin A1c (4.5-5.6) % Calcium 8.1 L (8.5-10.1) mg/dl Total Bilirubin 2.0 H (0.2-1.0) mg/dl Direct Bilirubin (0-0.2) mg/dl AST 7 L (13-39) U/L Troponin I High Sens 24.7 H (0-14) pg/ml Total Protein 5.2 L (6.0-8.3) gm/dl Albumin (3.4-5.0) gm/dl Globulin 1.8 L (2.5-4.0) gm/dl Urine Glucose (UA) Trace H (Negative) Urine Blood Trace H (Negative) U Epithel Cells (Auto) 10-20 H (0-5) /lpf Urine Osmolality (500-800) mOsm/kg 01/17/22 01/17/22 01/17/22 Range/Units 17:06 17:13 18:36 WBC (4.8-10.8) K/ul RBC (3.93-5.22) M/uL Hgb (12.0-16.0) g/dl Hct (34.1-44.9) % Plt Count (130-400) K/uL Lymph # (Auto) (1.2-3.4) K/uL [place] # (Auto) (0.24-0.82) K/uL Immature Gran # (Auto) (0.00-0.02) K/uL Platelet Estimate (Normal) Sodium (136-145) mmol/L Potassium (3.5-5.1) mmol/L Chloride (98-107) mmol/L BUN (6-23) mg/dl Creatinine (0.6-1.2) mg/dl BUN/Creatinine Ratio (10-20) Glucose (70-99(Fasting)) mg/dl POC Glucose 409 H* 361 H* (70-99) mg/dl Hemoglobin A1c (4.5-5.6) % Calcium (8.5-10.1) mg/dl Total Bilirubin (0.2-1.0) mg/dl Direct Bilirubin 0.5 H (0-0.2) mg/dl AST (13-39) U/L Troponin I High Sens (0-14) pg/ml Total Protein (6.0-8.3) gm/dl Albumin (3.4-5.0) gm/dl Globulin (2.5-4.0) gm/dl Urine Glucose (UA) (Negative) Urine Blood (Negative) U Epithel Cells (Auto) (0-5) /lpf Urine Osmolality (500-800) mOsm/kg 01/17/22 01/17/22 01/17/22 Range/Units 20:14 20:20 22:50 WBC (4.8-10.8) K/ul RBC (3.93-5.22) M/uL Hgb (12.0-16.0) g/dl Hct (34.1-44.9) % Plt Count (130-400) K/uL Lymph # (Auto) (1.2-3.4) K/uL [place] # (Auto) (0.24-0.82) K/uL Immature Gran # (Auto) (0.00-0.02) K/uL Platelet Estimate (Normal) Sodium 124 L (136-145) mmol/L Potassium (3.5-5.1) mmol/L Chloride 91 L (98-107) mmol/L BUN 74 H (6-23) mg/dl Creatinine 1.59 H (0.6-1.2) mg/dl BUN/Creatinine Ratio 46.5 H (10-20) Glucose 335 H* (70-99(Fasting)) mg/dl POC Glucose 359 H* 394 H* (70-99) mg/dl Hemoglobin A1c (4.5-5.6) % Calcium 7.8 L (8.5-10.1) mg/dl Total Bilirubin (0.2-1.0) mg/dl Direct Bilirubin (0-0.2) mg/dl AST (13-39) U/L Troponin I High Sens (0-14) pg/ml Total Protein (6.0-8.3) gm/dl Albumin (3.4-5.0) gm/dl Globulin (2.5-4.0) gm/dl Urine Glucose (UA) (Negative) Urine Blood (Negative) U Epithel Cells (Auto) (0-5) /lpf Urine Osmolality (500-800) mOsm/kg 01/17/22 01/18/22 01/18/22 Range/Units 23:59 00:01 04:30 WBC (4.8-10.8) K/ul RBC (3.93-5.22) M/uL Hgb (12.0-16.0) g/dl Hct (34.1-44.9) % Plt Count (130-400) K/uL Lymph # (Auto) (1.2-3.4) K/uL [place] # (Auto) (0.24-0.82) K/uL Immature Gran # (Auto) (0.00-0.02) K/uL Platelet Estimate (Normal) Sodium (136-145) mmol/L Potassium (3.5-5.1) mmol/L Chloride (98-107) mmol/L BUN (6-23) mg/dl Creatinine (0.6-1.2) mg/dl BUN/Creatinine Ratio (10-20) Glucose (70-99(Fasting)) mg/dl POC Glucose 319 H* 319 H* 67 L* (70-99) mg/dl Hemoglobin A1c (4.5-5.6) % Calcium (8.5-10.1) mg/dl Total Bilirubin (0.2-1.0) mg/dl Direct Bilirubin (0-0.2) mg/dl AST (13-39) U/L Troponin I High Sens (0-14) pg/ml Total Protein (6.0-8.3) gm/dl Albumin (3.4-5.0) gm/dl Globulin (2.5-4.0) gm/dl Urine Glucose (UA) (Negative) Urine Blood (Negative) U Epithel Cells (Auto) (0-5) /lpf Urine Osmolality (500-800) mOsm/kg 01/18/22 01/18/22 01/18/22 Range/Units 04:32 05:00 06:11 WBC 2.03 L (4.8-10.8) K/ul RBC 2.69 L (3.93-5.22) M/uL Hgb 7.7 L (12.0-16.0) g/dl Hct 22.8 L (34.1-44.9) % Plt Count 17 L* (130-400) K/uL Lymph # (Auto) 0.30 L (1.2-3.4) K/uL [place] # (Auto) 0.23 L (0.24-0.82) K/uL Immature Gran # (Auto) 0.04 H (0.00-0.02) K/uL Platelet Estimate Signific. Decreased L (Normal) Sodium (136-145) mmol/L Potassium (3.5-5.1) mmol/L Chloride (98-107) mmol/L BUN (6-23) mg/dl Creatinine (0.6-1.2) mg/dl BUN/Creatinine Ratio (10-20) Glucose (70-99(Fasting)) mg/dl POC Glucose 64 L* 137 H (70-99) mg/dl Hemoglobin A1c (4.5-5.6) % Calcium (8.5-10.1) mg/dl Total Bilirubin (0.2-1.0) mg/dl Direct Bilirubin (0-0.2) mg/dl AST (13-39) U/L Troponin I High Sens (0-14) pg/ml Total Protein (6.0-8.3) gm/dl Albumin (3.4-5.0) gm/dl Globulin (2.5-4.0) gm/dl Urine Glucose (UA) (Negative) Urine Blood (Negative) U Epithel Cells (Auto) (0-5) /lpf Urine Osmolality (500-800) mOsm/kg 01/18/22 01/18/22 01/18/22 Range/Units 06:11 06:11 07:29 WBC (4.8-10.8) K/ul RBC (3.93-5.22) M/uL Hgb (12.0-16.0) g/dl Hct (34.1-44.9) % Plt Count (130-400) K/uL Lymph # (Auto) (1.2-3.4) K/uL [place] # (Auto) (0.24-0.82) K/uL Immature Gran # (Auto) (0.00-0.02) K/uL Platelet Estimate (Normal) Sodium 127 L (136-145) mmol/L Potassium (3.5-5.1) mmol/L Chloride 94 L (98-107) mmol/L BUN 72 H (6-23) mg/dl Creatinine 1.50 H (0.6-1.2) mg/dl BUN/Creatinine Ratio 48.0 H (10-20) Glucose 108 H (70-99(Fasting)) mg/dl POC Glucose 127 H (70-99) mg/dl Hemoglobin A1c 7.6 H (4.5-5.6) % Calcium 8.0 L (8.5-10.1) mg/dl Total Bilirubin 1.9 H (0.2-1.0) mg/dl Direct Bilirubin (0-0.2) mg/dl AST 6 L (13-39) U/L Troponin I High Sens (0-14) pg/ml Total Protein 5.0 L (6.0-8.3) gm/dl Albumin 3.3 L (3.4-5.0) gm/dl Globulin 1.7 L (2.5-4.0) gm/dl Urine Glucose (UA) (Negative) Urine Blood (Negative) U Epithel Cells (Auto) (0-5) /lpf Urine Osmolality (500-800) mOsm/kg 01/18/22 01/18/22 Range/Units 11:32 Unknown WBC (4.8-10.8) K/ul RBC (3.93-5.22) M/uL Hgb (12.0-16.0) g/dl Hct (34.1-44.9) % Plt Count (130-400) K/uL Lymph # (Auto) (1.2-3.4) K/uL [place] # (Auto) (0.24-0.82) K/uL Immature Gran # (Auto) (0.00-0.02) K/uL Platelet Estimate (Normal) Sodium (136-145) mmol/L Potassium (3.5-5.1) mmol/L Chloride (98-107) mmol/L BUN (6-23) mg/dl Creatinine (0.6-1.2) mg/dl BUN/Creatinine Ratio (10-20) Glucose (70-99(Fasting)) mg/dl POC Glucose 204 H (70-99) mg/dl Hemoglobin A1c (4.5-5.6) % Calcium (8.5-10.1) mg/dl Total Bilirubin (0.2-1.0) mg/dl Direct Bilirubin (0-0.2) mg/dl AST (13-39) U/L Troponin I High Sens (0-14) pg/ml Total Protein (6.0-8.3) gm/dl Albumin (3.4-5.0) gm/dl Globulin (2.5-4.0) gm/dl Urine Glucose (UA) (Negative) Urine Blood (Negative) U Epithel Cells (Auto) (0-5) /lpf Urine Osmolality 379 L (500-800) mOsm/kg
--- NOTE | 2022-01-18 10:31 | Pharmacy Report ---
Pharmacy Glycemic Short Note 2 - Date of Service January 18, 2022 - Glycemic Short BSG Results (Last 24 hours): 01/17/22 01/17/22 01/17/22 14:40 17:13 18:36 Glucose 411 H* POC Glucose 409 H* 361 H* 01/17/22 01/17/22 01/17/22 20:14 20:20 22:50 Glucose 335 H* POC Glucose 359 H* 394 H* 01/17/22 01/18/22 01/18/22 23:59 00:01 04:03 Glucose POC Glucose 319 H* 319 H* 71 01/18/22 01/18/22 01/18/22 04:30 04:32 05:00 Glucose POC Glucose 67 L* 64 L* 137 H 01/18/22 01/18/22 06:11 07:29 Glucose 108 H POC Glucose 127 H OUTPATIENT ANTIDIABETIC REGIMEN: * NPH 60 units SC AM + 35 units SC PM * Chronic Prednisone 5 mg PO daily * HbA1c = 7.6% (01/18/22) ASSESSMENT: * 81 yo F admitted yesterday secondary to generalized weakness. Patient is a type 2 diabetic on insulin at home. Most recent A1c is at goal for this patient. Ordered and tolerating a type 2 diabetic diet. Continues on home prednisone dose. * BSGs were high upon admission yesterday: [phone] mg/dL. Received 20 units NPH as well as 8 and 5 units IV insulin boluses. Also received relatively large doses of Novolog around bedtime and midnight. This likely led to stacking which caused patient to have a hypoglycemic event around 0400 where the patient was shaky. This required treatment with a half amp of D50 as well as orange juice and patient's BSG improved to 137 mg/dL. * Fasting BSG controlled at 127 mg/dL this AM. Will start NPH dosing based on previous admission data. Novolog will be ordered ACHS and based on previous admission data. Targeting a goal range of 110-140 mg/dL. PLAN FOR INPATIENT GLYCEMIC CONTROL: * Basal insulin * NPH 25 units SC daily with breakfast * NPH 15 units SC daily with dinner * Bolus insulin * NovoLog per scale ACHS or Q6hrs while NPO * Goal Range: Low 110 mg/dL - High 140 mg/dL * Correction Factor: 20 mg/dL/unit * Nutritional / Prandial insulin per carb ratio of 1 unit per 7 grams CHO consumed
[2022-01-18] MEDS: POLYETHYLENE (MIRALAX) 17 GM PACK PO PRN (10:38)
--- NOTE | 2022-01-18 11:00 | Nephrology Consultation ---
Date of Consultation January 18, 2022 Assessment & Plan (1) Hyponatremia: Patient with hyponatremia due to CHF. Baseline sodium in the low 130s. Admission sodium 128 and down to 127 today. Urine osmolality of 379 and urine sodium of 21. Patient admitted to increase water intake at home. We will start a fluid restriction of 1.2 L daily. We will give urea 15 g twice daily. We will continue to monitor sodium daily. (2) CKD (chronic kidney disease), stage III: Patient with CKD stage III due to diabetes and hypertension. Baseline creatinine of 1.5. Her renal function is at baseline. We will continue to monitor daily and avoid nephrotoxins. History of Present Illness Reason for Consultation: Hyponatremia Requesting Physician: Eleonora Mccabe MD Attending Physician: Eleonora Mccabe MD History of Present Illness This is a 81 yr old F who has a significant PMH of T2DM, Afib off anticoagulation, MDS and chronic pancytopenia, HTN, HLD, gout, inflammatory polyarthritis, hx of breast and uterine ca, CKD 3, hx of covid who was admitted on 01/17/2022 with recent fall, low serum sodium and generalized weakness.The same sodium is in the low 130s. Admission sodium was 128 and today is down to 127.Patient drinks a lot of water. She denies shortness of breath. No leg swelling. She has bruises on her legs due to recent fall about a week ago. No urinary symptoms. Chest x-ray showed cardiomegaly with small pleural effusions. Urine osmolality of 379 and urine sodium of 21. Her creatinine is 1.5 which is at baseline. Allergies Allergy/AdvReac Type Severity Reaction Status Date / Time hydrocodone Allergy Mild UNKNOWN Verified 01/17/22 08:45 "HAPPENED LONG TIME AGO" phenol Allergy Mild LOCALIZED Verified 01/17/22 08:45 RASH AT INJECTION SITE protamine Allergy Mild LOCALIZED Verified 01/17/22 08:45 RASH AT INJECTION SITE sodium phosphate Allergy Mild LOCALIZED Verified 01/17/22 08:45 RASH AT INJECTION SITE zinc Allergy Mild LOCALIZED Verified 01/17/22 08:45 RASH AT INJECTION SITE hydroxychloroquine AdvReac Mild "BURPED Verified 01/17/22 08:45 FOR DAYS AND TORE MY STOMACH UP" Home Medications Medication Instructions Recorded Confirmed Type allopurinol 300 mg tablet 300 mg PO DAILY 10/15/21 01/17/22 History bumetanide 1 mg tablet 1 mg PO BID 10/15/21 01/17/22 History diltiazem HCl 240 mg 240 mg PO DAILY 10/15/21 01/17/22 History capsule,extended release 24 hr escitalopram oxalate 10 mg tablet 10 mg PO DAILY 10/15/21 01/17/22 History loratadine 10 mg tablet 10 mg PO DAILY 10/15/21 01/17/22 History prednisone 5 mg tablet 5 mg PO DAILY 10/15/21 01/17/22 History atorvastatin 20 mg tablet 20 mg PO DAILY 11/15/21 01/17/22 History magnesium oxide 400 mg (241.3 mg 400 mg PO DAILY #0 tabs 11/27/21 01/17/22 Rx magnesium) tablet acetaminophen 500 mg capsule 1,000 mg PO Q8H PRN Pain 12/10/21 01/17/22 History docusate sodium 100 mg capsule 100 mg PO BID 12/10/21 01/17/22 History pantoprazole 40 mg tablet,delayed 40 mg PO DAILY 12/10/21 01/17/22 History release spironolactone 25 mg tablet 50 mg PO DAILY 12/10/21 01/17/22 History insulin NPH isoph U-100 human 100 See Rx Instructions .Route .COMPLEX 12/12/21 01/17/22 History unit/mL (3 mL) subcutaneous pen metoprolol succinate 50 mg 50 mg PO BID #0 tabs 12/17/21 01/17/22 Rx tablet,extended release 24 hr Patient History Medical History A-fib Acute hyperkalemia Acute hypokalemia Bradycardia CKD (chronic kidney disease), stage III Diabetes Elevated troponin I level GI bleed Hx of pneumococcal pneumonia Hypertension Hypomagnesemia Insulin dependent diabetes mellitus Malignant neoplasm of central portion of female breast (10/01/11) "Left breast pain Finding of a left breast mass Status post biopsy revealing infiltrating ductal carcinoma Status post partial mastectomy and sentinel lymph node biopsy Pathologic stage [id number] Estrogen receptor positive, progesterone receptor positive, HER-2/abelardo negative Status post completion of radiation therapy 04/08/2012 received 6120 cGy" Myelodysplastic syndrome with 5 q minus Surgical History History of hysterectomy History of lumpectomy Hx of cholecystectomy Family History Other Cancer Diabetes Social History Smoking Status: Never smoker Second Hand Exposure: No; Do You Dip or Chew Tobacco: No; Hx Alcohol Use: No Hx Substance Use: No Preferred Language: Tamazight Communication Ability: Effective Drug Safety Specialist Required: No Beliefs That Will Affect Care: None marital status: / Current Living Situation: Alone Current Living Situation Comment: Home alone How many Children do You have: 3 Other Information That Helps Us Care for You: No Feels Safe at Home: Yes Safety Concerns: Feels Safe At This Time Assistive Devices: Glasses and Walker Review of Systems Review of Systems: All other systems were reviewed and negative except as noted in HPI Physical Exam Physical Exam: General exam: Appears comfortable, no acute distress HEENT: Pupils are equal and reactive to light Neck: No JVD, neck is supple trachea is midline Respiratory system: Clear breath sounds bilaterally. Gastrointestinal: Abdomen is soft, non distended, non tender, bowel sounds are present CVS: Regular rate and rhythm. No murmurs, rubs or gallops Musculoskeletal: No joint or muscle tenderness Extremities: Non tender, no edema, peripheral pulses are present Neuro: Oriented, no tremors, no focal neurological deficits Skin: No rashes Results & Data ([facility]) Vital Signs (Past 12 Hours) Vital Signs Temp Pulse Resp BP Pulse Ox Pulse Ox O2 Del Method 01/18/22 07:52 36.9 C 18 92 Room Air 01/18/22 04:07 36.9 C 93 H 18 110/64 95 Room Air 01/18/22 00:58 95 O2 Del Method 01/18/22 07:52 01/18/22 04:07 01/18/22 00:58 Room Air
[2022-01-18] MEDS: UREA (UREA-NA) 15 GM PACK PO SCH ×2 (12:40→20:23)
[2022-01-19 07:29] LABS: Hemoglobin 7.7 g/dl (12.0-16.0)
[2022-01-19 07:44] LABS: BUN Creatinine Ratio 57.1 (10-20); Creatinine Clr Calc Pharmacy 29.7 ml/min; Est GFR (African American) 36.8 ml/min; Est GFR (Non-African American) 31.8 ml/min; Potassium 4.2 mmol/L (3.5-5.1)
[2022-01-19 07:45] LABS: Mean Corpuscular Hemoglobin 28.3 pg (25.0-34.0); Mean Corpuscular Hgb Conc 33.5 g/dL (32.0-36.0); Mean Corpuscular Volume 84.6 fL (80.0-100.0); Platelet Count 17 K/uL (130-400); RDW Coefficient of Variation 13.8 % (11.5-14.5); RDW Standard Deviation 42.9 fL (36.4-46.3); Red Blood Count 2.72 M/uL (3.93-5.22); White Blood Count 1.67 K/ul (4.8-10.8)
[2022-01-19] MEDS: MAGNESIUM OXIDE 400 MG TAB PO SCH (07:59)
[2022-01-19] MEDS: ESCITALOPRAM OXALATE 10 MG TAB PO SCH (07:59)
[2022-01-19] MEDS: UREA (UREA-NA) 15 GM PACK PO SCH (07:59)
[2022-01-19] MEDS: METOPROLOL SUCC 50MG EXT REL TAB PO SCH ×2 (07:59→21:13)
[2022-01-19] MEDS: ATORVASTATIN 20 MG TAB PO SCH (07:59)
[2022-01-19] MEDS: PANTOprazole 40 MG TAB PO SCH (07:59)
[2022-01-19] MEDS: dilTIAZem HCL 240 MG CAPCR PO SCH (07:59)
[2022-01-19] MEDS: allopurinoL 300 MG TAB PO SCH (07:59)
[2022-01-19] MEDS: predniSONE 5 MG TAB PO SCH (07:59)
[2022-01-19] MEDS: LORATADINE 10 MG TAB PO SCH (07:59)
[2022-01-19] MEDS: DOCUSATE SODIUM 100 MG CAP PO SCH ×2 (08:00→21:13)
[2022-01-19] MEDS: INSULIN ASPART PER UNIT SC SCH ×4 (08:04→22:13)
[2022-01-19] MEDS: INSULIN HUMAN NPH SC SCH ×2 (08:05→17:17)
[2022-01-19] MEDS: BUMETANIDE 1 MG TAB PO SCH ×3 (08:29→21:13)
[2022-01-19] MEDS ORDERED: BUMETANIDE 1 MG TAB PO SCH ×2 (09:15→10:00)
--- NOTE | 2022-01-19 10:02 | Nephrology Progress Note ---
Date of Service January 19, 2022 Assessment & Plan (1) Hyponatremia: Plan: Patient with hyponatremia due to CHF. Baseline sodium in the low 130s. Admission sodium 128 and down to 125 today. Urine osmolality of 379 and urine sodium of 21. Patient admitted to increase water intake at home. We will continue a fluid restriction of 1.2 L daily. We will stop urea. BUN is up trending. We will increase Bumex to 1.5 mg twice daily. We will continue to monitor sodium daily. (2) CKD (chronic kidney disease), stage III: Plan: Patient with CKD stage III due to diabetes and hypertension. Baseline creatinine of 1.5. Her renal function is at baseline. We will continue to monitor daily and avoid nephrotoxins. Admission and Anticipated Discharge Date Admission Date: January 17, 2022 Subjective Seen for CKD and hyponatremia. No shortness of breath. Main complaint is wea kness. Sodium still downtrending. Review of Systems Review of Systems: All other systems were reviewed and negative except as noted in HPI Physical Exam Physical Exam: General exam: Appears comfortable, no acute distress HEENT: Pupils are equal and reactive to light Neck: No JVD, neck is supple trachea is midline Respiratory system: Clear breath sounds bilaterally. Gastrointestinal: Abdomen is soft, non distended, non tender, bowel sounds are present CVS: Regular rate and rhythm. No murmurs, rubs or gallops Musculoskeletal: No joint or muscle tenderness Extremities: Non tender, no edema, peripheral pulses are present Neuro: Oriented, no tremors, no focal neurological deficits Skin: No rashes Results & Data ([facility]) Vital Signs (Past 12 Hours) Vital Signs Temp Pulse Pulse Resp BP Pulse Ox O2 Del Method 01/19/22 07:36 36.8 C 89 18 134/86 95 Room Air 01/19/22 02:52 37 C 87 17 100/61 95 Room Air 01/19/22 01:56 97 H 01/18/22 22:49 36.8 C 103 H 17 108/68 93 Room Air Laboratory Results 01/19/22 06:45 01/17/22 01/19/22 14:40 06:45 WBC 1.67 L RBC 2.72 L MCV 84.6 MCH 28.3 MCHC 33.5 RDW Std Deviation 42.9 RDW Coeff of Griffin 13.8 Plt Count 17 L* Albumin 3.4
--- NOTE | 2022-01-19 10:21 | Hospitalist Progress Note ---
Date of Service January 19, 2022 Assessment & Plan (1) Generalized weakness: (2) Symptomatic anemia: (3) MDS (myelodysplastic syndrome): (4) Pancytopenia: (5) Hyponatremia: (6) Insulin dependent diabetes mellitus: (7) A-fib: (8) CKD (chronic kidney disease), stage III: Plan 81 yr old F who has a significant PMH of T2DM, Afib off anticoagulation, MDS and chronic pancytopenia, HTN, HLD, gout, inflammatory polyarthritis, hx of breast and uterine ca, CKD 3, hx of covid who presents [facility] due to recent fall, worsened serum sodium and generalized weakness. [facility] today receiving 2U prbc transfusion in setting of MDS. Generalized weakness Symptomatic anemia MDS with pancytopenia Got 2 unit PRBC at [facility] on [facility] day of presentation Hb remains stable at 7.7 today, Platelet is 17K Monitor and transfuse PRN to keep Hb>7 and Plt >10K Reported she had fallen over 1 week ago Get PT/OT eval Chronic Hyponatremia Corrected sodium 125 Hyponatremia in the setting of chronic HFpEF Nephrology recs noted Continue fluid restriction and monitor BUmex increased to 1.5mg bid per Nephro Continue urea Na Mild hyperkalemia K was 5.4 on admission Aldactone on hold K is 4.2 today IDDM2 with hyperglycemia Last a1c 7.2 10/16/21 Pt missed insulin on day of admission NPH, novolog per protocol Glycemic pharm CKD -3 Cr at baseline Avoid nephrotoxins. Monitor Chronic HFpEF Had got 2 PRBC on day of presentation Continue bumex as above Fluid restriction Recent Fall Bruising to lower ext PT/OT eval- rehab recommended Chronic Afib Continue metoprolol, rate controlled Not on OAC in setting of MDS Inflammatory Polyarthritis Continue steroid DVT PPx: none in setting of MDS, encourage ambulation when able Diet: Carb consistent, Low K, Low Na Full Code PCP: Byron Dispo: med tele Admission and Anticipated Discharge Date Admission Date: January 17, 2022 Subjective Patient seen and examined Reports only weakness today. No dizziness Denied cough, chest pain, SOB Denied nausea, abd pain, vomiting, diarrhea Denied freq, urgency, dysuria Physical Exam Constitutional: + well hydrated and + obese; no acute distress Eyes: PERRL, conjunctivae normal, anicteric sclerae ENMT: external ear and nose normal, oropharynx normal Respiratory: normal respiratory effort; no respiratory distress Good air entry. No crackles Cardiovascular: Rate/Rhythm: + irregularly irregular S1 S2 Gastrointestinal (Abdomen): normal bowel sounds, soft, nontender, no hepatosplenomegaly Musculoskeletal: Trace pedal edema Neurologic: PERRL, EOMI, accommodation nl, no face palsy, no dysarthria Psychiatric: A+Ox3, euthymic affect Results & Data Results & Data ([facility]) Vital Signs (Past 12 Hours) Vital Signs Temp Pulse Pulse Resp BP Pulse Ox O2 Del Method 01/19/22 07:36 36.8 C 89 18 134/86 95 Room Air 01/19/22 02:52 37 C 87 17 100/61 95 Room Air 01/19/22 01:56 97 H 01/18/22 22:49 36.8 C 103 H 17 108/68 93 Room Air Laboratory Results Abnormal lab results 01/18/22 01/18/22 01/19/22 Range/Units 16:43 20:17 06:45 WBC 1.67 L (4.8-10.8) K/ul RBC 2.72 L (3.93-5.22) M/uL Hgb 7.7 L (12.0-16.0) g/dl Hct 23.0 L (34.1-44.9) % Plt Count 17 L* (130-400) K/uL Sodium (136-145) mmol/L Chloride (98-107) mmol/L BUN (6-23) mg/dl Creatinine (0.6-1.2) mg/dl BUN/Creatinine Ratio (10-20) Glucose (70-99(Fasting)) mg/dl POC Glucose 176 H 112 H (70-99) mg/dl Calcium (8.5-10.1) mg/dl 01/19/22 01/19/22 01/19/22 Range/Units 06:45 07:45 11:31 WBC (4.8-10.8) K/ul RBC (3.93-5.22) M/uL Hgb (12.0-16.0) g/dl Hct (34.1-44.9) % Plt Count (130-400) K/uL Sodium 125 L (136-145) mmol/L Chloride 91 L (98-107) mmol/L BUN 88 H (6-23) mg/dl Creatinine 1.54 H (0.6-1.2) mg/dl BUN/Creatinine Ratio 57.1 H (10-20) Glucose 183 H (70-99(Fasting)) mg/dl POC Glucose 191 H 222 H (70-99) mg/dl Calcium 8.0 L (8.5-10.1) mg/dl
--- NOTE | 2022-01-19 14:06 | Pharmacy Report ---
Pharmacy Glycemic Short Note 2 - Date of Service January 19, 2022 - Glycemic Short BSG Results (Last 24 hours): 01/18/22 01/18/22 01/19/22 16:43 20:17 06:45 Glucose 183 H POC Glucose 176 H 112 H 01/19/22 01/19/22 07:45 11:31 Glucose POC Glucose 191 H 222 H OUTPATIENT ANTIDIABETIC REGIMEN: * NPH 60 units SC AM + 35 units SC PM * Chronic Prednisone 5 mg PO daily * HbA1c = 7.6% (01/18/22) ASSESSMENT: 01/19: * Carmen received a total of 62 units of insulin yesterday (40 units basal + 22 units bolus). BSGs were acceptable: [phone] mg/dL. * Fasting BSG this AM was elevated at 191 mg/dL. AM NPH was already given so will increase PM NPH tonight. Targeting a daily basal goal of 50 units. * Tightened carb ratio with lunch since AM Novolog had already been given. Patient has a tendency to have high BSGs at lunch followed by a steady decrease throughout the day. If this trend continues on tightened carb ratio, then will loosen tomorrow morning. 01/18: * 81 yo F admitted yesterday secondary to generalized weakness. Patient is a type 2 diabetic on insulin at home. Most recent A1c is at goal for this patient. Ordered and tolerating a type 2 diabetic diet. Continues on home prednisone dose. * BSGs were high upon admission yesterday: [phone] mg/dL. Received 20 units NPH as well as 8 and 5 units IV insulin boluses. Also received relatively large doses of Novolog around bedtime and midnight. This likely led to stacking which caused patient to have a hypoglycemic event around 0400 where the patient was shaky. This required treatment with a half amp of D50 as well as orange juice and patient's BSG improved to 137 mg/dL. * Fasting BSG controlled at 127 mg/dL this AM. Will start NPH dosing based on previous admission data. Novolog will be ordered ACHS and based on previous admission data. Targeting a goal range of 110-140 mg/dL. PLAN FOR INPATIENT GLYCEMIC CONTROL: * Basal insulin * NPH 25 units SC today, start 30 units SC daily with breakfast tomorrow * NPH 20 units SC daily with dinner * Bolus insulin * NovoLog per scale ACHS or Q6hrs while NPO * Goal Range: Low 110 mg/dL - High 140 mg/dL * Correction Factor: 20 mg/dL/unit * Nutritional / Prandial insulin per carb ratio of 1 unit per 6 grams CHO consumed
[2022-01-19] MEDS: ACETAMINOPHEN 325 MG TAB PO PRN (16:25)
[2022-01-20] MEDS: ACETAMINOPHEN 325 MG TAB PO PRN ×2 (03:42→20:45)
[2022-01-20] MEDS: INSULIN ASPART PER UNIT SC SCH ×5 (08:15→22:14)
[2022-01-20] MEDS: INSULIN HUMAN NPH SC SCH ×2 (08:16→17:23)
[2022-01-20] MEDS: BUMETANIDE 1 MG TAB PO SCH ×2 (08:17→20:38)
[2022-01-20] MEDS: DOCUSATE SODIUM 100 MG CAP PO SCH ×2 (08:17→20:40)
[2022-01-20] MEDS: predniSONE 5 MG TAB PO SCH (08:18)
[2022-01-20] MEDS: MAGNESIUM OXIDE 400 MG TAB PO SCH (08:18)
[2022-01-20] MEDS: PANTOprazole 40 MG TAB PO SCH (08:18)
[2022-01-20] MEDS: ESCITALOPRAM OXALATE 10 MG TAB PO SCH (08:18)
[2022-01-20] MEDS: ATORVASTATIN 20 MG TAB PO SCH (08:19)
[2022-01-20] MEDS: METOPROLOL SUCC 50MG EXT REL TAB PO SCH ×3 (08:19→20:40)
[2022-01-20] MEDS: LORATADINE 10 MG TAB PO SCH (08:19)
[2022-01-20] MEDS: allopurinoL 300 MG TAB PO SCH (08:19)
[2022-01-20] MEDS: dilTIAZem HCL 240 MG CAPCR PO SCH (08:19)
[2022-01-20] MEDS: POLYETHYLENE (MIRALAX) 17 GM PACK PO PRN (08:23)
--- NOTE | 2022-01-20 08:28 | Pharmacy Report ---
Pharmacy Glycemic Short Note 2 - Date of Service January 20, 2022 - Glycemic Short BSG Results (Last 24 hours): 01/19/22 01/19/22 01/19/22 11:31 16:19 20:02 POC Glucose 222 H 171 H 226 H 01/20/22 07:41 POC Glucose 155 H OUTPATIENT ANTIDIABETIC REGIMEN: * NPH 60 units SC AM + 35 units SC PM * Chronic Prednisone 5 mg PO daily * HbA1c = 7.6% (01/18/22) ASSESSMENT: 01/20: * Patient recieved a total of 87 units of insulin yesterday - 45 units basal + 42 units bolus. BSGs were elevated: [phone] mg/dL. * Fasting BSG improved to 155 mg/dL this AM. Will increase NPH in the morning only to provide 50 units of basal today. * Remains on daily prednisone. Given lunchtime hyperglycemia, will tighten Novolog with breakfast only today. 01/19: * Carmen received a total of 62 units of insulin yesterday (40 units basal + 22 units bolus). BSGs were acceptable: [phone] mg/dL. * Fasting BSG this AM was elevated at 191 mg/dL. AM NPH was already given so will increase PM NPH tonight. Targeting a daily basal goal of 50 units. * Tightened carb ratio with lunch since AM Novolog had already been given. Patient has a tendency to have high BSGs at lunch followed by a steady decrease throughout the day. If this trend continues on tightened carb ratio, then will loosen tomorrow morning. 01/18: * 81 yo F admitted yesterday secondary to generalized weakness. Patient is a type 2 diabetic on insulin at home. Most recent A1c is at goal for this patient. Ordered and tolerating a type 2 diabetic diet. Continues on home prednisone dose. * BSGs were high upon admission yesterday: [phone] mg/dL. Received 20 units NPH as well as 8 and 5 units IV insulin boluses. Also received relatively large doses of Novolog around bedtime and midnight. This likely led to stacking which caused patient to have a hypoglycemic event around 0400 where the patient was shaky. This required treatment with a half amp of D50 as well as orange juice and patient's BSG improved to 137 mg/dL. * Fasting BSG controlled at 127 mg/dL this AM. Will start NPH dosing based on previous admission data. Novolog will be ordered ACHS and based on previous admission data. Targeting a goal range of 110-140 mg/dL. PLAN FOR INPATIENT GLYCEMIC CONTROL: * Basal insulin * NPH 30 units SC daily with breakfast * NPH 20 units SC daily with dinner * Bolus insulin * NovoLog per scale ACHS or Q6hrs while NPO * Goal Range: Low 110 mg/dL - High 140 mg/dL * Breakfast - Correction Factor: 15 mg/dL/unit ; Nutritional / Prandial insulin per carb ratio of 1 unit per 5 grams CHO consumed * Lunch, Dinner, Bedtime - Correction Factor: 20 mg/dL/unit ; Nutritional / Prandial insulin per carb ratio of 1 unit per 6 grams CHO consumed
[2022-01-20 08:47] LABS: Hematocrit (blood only) 22.1 % (34.1-44.9); Hemoglobin 7.5 g/dl (12.0-16.0); Mean Corpuscular Hgb Conc 33.9 g/dL (32.0-36.0); Mean Corpuscular Volume 85.3 fL (80.0-100.0); Platelet Count 13 K/uL (130-400); RDW Coefficient of Variation 13.8 % (11.5-14.5); Red Blood Count 2.59 M/uL (3.93-5.22); White Blood Count 1.05 K/ul (4.8-10.8)
[2022-01-20 09:01] LABS: BUN Creatinine Ratio 48.8 (10-20); Calcium 8.1 mg/dl (8.5-10.1); Creatinine Clr Calc Pharmacy 27.4 ml/min; Est GFR (African American) 33.6 ml/min; Potassium 3.8 mmol/L (3.5-5.1)
--- NOTE | 2022-01-20 10:16 | Nephrology Progress Note ---
Date of Service January 20, 2022 Assessment & Plan Admission and Anticipated Discharge Date Admission Date: January 17, 2022 Subjective Assessment & Plan (1) Hyponatremia: Plan: Patient with hyponatremia due to CHF. Baseline sodium in the low 130s. Admission sodium 128 and down to 125 and today up to130.. Urine osmolality of 379 and urine sodium of 21. Patient admitted to increase water intake at home. We will continue a fluid restriction of 1.2 L daily. She barely eats any protein. told her to try eating more protein. Continue Bumex to 1.5 mg twice daily. We will continue to monitor sodium daily.\ (2) CKD (chronic kidney disease), stage III: Plan: Patient with CKD stage III due to diabetes and hypertension. Baseline cr eatinine of 1.5 range. Current creat and BUN is within her baseline. We will continue to monitor daily and avoid nephrotoxins. Subjective Seen for CKD and hyponatremia. No shortness of breath. Main complaint is weakness. Sodium better. Review of Systems Review of Systems: All other systems were reviewed and negative except as noted in HPI Physical Exam Physical Exam: General exam: Appears comfortable, no acute distress HEENT: Pupils are equal and reactive to light Neck: No JVD, neck is supple trachea is midline Respiratory system: Clear breath sounds bilaterally. Gastrointestinal: Abdomen is soft, non distended, non tender, bowel sounds are present CVS: Regular rate and rhythm. No murmurs, rubs or gallops Musculoskeletal: No joint or muscle tenderness Extremities: Non tender, no edema, peripheral pulses are present Neuro: Oriented, no tremors, no focal neurological deficits Skin: No rashes Results & Data ([facility]) Vital Signs (Past 12 Hours) Vital Signs Temp Pulse Pulse Resp BP BP Pulse Ox 01/20/22 08:19 36.8 C 119 H 19 89/3 L 92 01/20/22 07:30 106 H 01/20/22 04:00 37 C 94 H 20 95/55 L 97 01/20/22 00:00 01/19/22 22:30 36.7 C 105 H 20 104/65 96 01/19/22 22:22 103 H Pulse Ox O2 Del Method O2 Del Method 01/20/22 08:19 Room Air 01/20/22 07:30 01/20/22 04:00 Room Air 01/20/22 00:00 96 Room Air 01/19/22 22:30 Room Air 01/19/22 22:22
--- NOTE | 2022-01-20 13:01 | Hospitalist Progress Note ---
Date of Service January 20, 2022 Assessment & Plan (1) Generalized weakness: (2) Symptomatic anemia: (3) MDS (myelodysplastic syndrome): (4) Pancytopenia: (5) Hyponatremia: (6) Insulin dependent diabetes mellitus: (7) A-fib: (8) CKD (chronic kidney disease), stage III: Plan 81 yr old F who has a significant PMH of T2DM, Afib off anticoagulation, MDS and chronic pancytopenia, HTN, HLD, gout, inflammatory polyarthritis, hx of breast and uterine ca, CKD 3, hx of covid who presents to [facility] due to recent [facility], worsened serum sodium and generalized weakness. [facility] receiving 2U prbc transfusion in setting of MDS. Generalized weakness Symptomatic anemia MDS with pancytopenia Got 2 unit PRBC at [facility] on the day of presentation Hb remains stable at 7.5 today, Platelet is 13K Monitor and transfuse PRN to keep Hb>7 and Plt >10K Reported she had fallen over 1 week ago PT/OT eval noted Chronic Hyponatremia Na improving 130 today Hyponatremia in the setting of chronic HFpEF Nephrology recs noted Continue fluid restriction and monitor Continue bumex increased to 1.5mg bid per Nephro Continue urea Na Mild hyperkalemia K was 5.4 on admission Aldactone on hold K is 3.8 today IDDM2 with hyperglycemia Last a1c 7.2 10/16/21 Pt missed insulin on day of admission NPH, novolog per protocol Glycemic pharm CKD -3 Cr at baseline Avoid nephrotoxins. Monitor Chronic HFpEF Had got 2 PRBC on day of presentation Continue bumex as above Fluid restriction Recent Fall Bruising to lower ext PT/OT eval- rehab recommended Chronic Afib Continue metoprolol, rate controlled Not on OAC in setting of MDS Inflammatory Polyarthritis Continue steroid DVT PPx: none in setting of MDS, encourage ambulation when able Diet: Carb consistent, Low K, Low Na Full Code PCP: Byron Dispo: med tele Admission and Anticipated Discharge Date Admission Date: January 17, 2022 Subjective Patient seen and examined Reports only weakness Dizziness has resolved Denied cough, chest pain, SOB Denied nausea, abd pain, vomiting, diarrhea. Reports constipation Denied freq, urgency, dysuria Physical Exam Constitutional: + well hydrated and + obese; no acute distress Eyes: PERRL, conjunctivae normal, anicteric sclerae ENMT: external ear and nose normal, oropharynx normal Respiratory: normal respiratory effort; no respiratory distress Cardiovascular: Rate/Rhythm: + irregularly irregular S1 S2 Gastrointestinal (Abdomen): normal bowel sounds, soft, nontender, no hepatosplenomegaly Musculoskeletal: No pedal edema Neurologic: PERRL, EOMI, accommodation nl, no face palsy, no dysarthria Psychiatric: A+Ox3, euthymic affect Results & Data Results & Data ([facility]) Vital Signs (Past 12 Hours) Vital Signs Temp Pulse Pulse Resp BP Pulse Ox O2 Del Method 01/20/22 11:40 36.6 C 108 H 20 95/55 L 92 Room Air 01/20/22 08:19 36.8 C 119 H 19 89/3 L 92 Room Air 01/20/22 07:30 106 H 01/20/22 04:00 37 C 94 H 20 95/55 L 97 Room Air Laboratory Results Abnormal lab results 01/19/22 01/19/22 01/20/22 Range/Units 16:19 20:02 07:41 WBC (4.8-10.8) K/ul RBC (3.93-5.22) M/uL Hgb (12.0-16.0) g/dl Hct (34.1-44.9) % Plt Count (130-400) K/uL Sodium (136-145) mmol/L Chloride (98-107) mmol/L BUN (6-23) mg/dl Creatinine (0.6-1.2) mg/dl BUN/Creatinine Ratio (10-20) Glucose (70-99(Fasting)) mg/dl POC Glucose 171 H 226 H 155 H (70-99) mg/dl Calcium (8.5-10.1) mg/dl 01/20/22 01/20/22 01/20/22 Range/Units 07:53 07:53 11:29 WBC 1.05 L (4.8-10.8) K/ul RBC 2.59 L (3.93-5.22) M/uL Hgb 7.5 L (12.0-16.0) g/dl Hct 22.1 L (34.1-44.9) % Plt Count 13 L* (130-400) K/uL Sodium 130 L (136-145) mmol/L Chloride 95 L (98-107) mmol/L BUN 81 H (6-23) mg/dl Creatinine 1.66 H (0.6-1.2) mg/dl BUN/Creatinine Ratio 48.8 H (10-20) Glucose 141 H (70-99(Fasting)) mg/dl POC Glucose 259 H (70-99) mg/dl Calcium 8.1 L (8.5-10.1) mg/dl
[2022-01-21] MEDS: MELATONIN 3 MG TAB PO PRN ×2 (00:06→20:41)
[2022-01-21] MEDS: ACETAMINOPHEN 325 MG TAB PO PRN ×2 (07:55→20:41)
[2022-01-21] MEDS: predniSONE 5 MG TAB PO SCH (08:13)
[2022-01-21] MEDS: ESCITALOPRAM OXALATE 10 MG TAB PO SCH (08:13)
[2022-01-21] MEDS: ATORVASTATIN 20 MG TAB PO SCH (08:13)
[2022-01-21] MEDS: allopurinoL 300 MG TAB PO SCH (08:13)
[2022-01-21] MEDS: LORATADINE 10 MG TAB PO SCH (08:13)
[2022-01-21] MEDS: PANTOprazole 40 MG TAB PO SCH (08:13)
[2022-01-21] MEDS: MAGNESIUM OXIDE 400 MG TAB PO SCH (08:13)
[2022-01-21] MEDS: METOPROLOL SUCC 50MG EXT REL TAB PO SCH ×2 (08:14→20:40)
[2022-01-21] MEDS: BUMETANIDE 1 MG TAB PO SCH ×2 (08:14→20:38)
[2022-01-21] MEDS: DOCUSATE SODIUM 100 MG CAP PO SCH ×2 (08:14→20:39)
[2022-01-21] MEDS: dilTIAZem HCL 240 MG CAPCR PO SCH (08:14)
[2022-01-21] MEDS: INSULIN HUMAN NPH SC SCH ×2 (08:27→17:12)
[2022-01-21] MEDS: INSULIN ASPART PER UNIT SC SCH ×4 (08:27→20:40)
[2022-01-21 09:03] LABS: BUN Creatinine Ratio 45.2 (10-20); Calcium 7.8 mg/dl (8.5-10.1); Creatinine Clr Calc Pharmacy 31.6 ml/min; Est GFR (African American) 39.3 ml/min; Est GFR (Non-African American) 33.9 ml/min; Potassium 3.6 mmol/L (3.5-5.1)
[2022-01-21 09:09] LABS: Hemoglobin 7.1 g/dl (12.0-16.0); Mean Corpuscular Hgb Conc 33.8 g/dL (32.0-36.0); Mean Corpuscular Volume 85.7 fL (80.0-100.0); Platelet Count 9 K/uL (130-400); RDW Coefficient of Variation 13.6 % (11.5-14.5); RDW Standard Deviation 43.2 fL (36.4-46.3); Red Blood Count 2.45 M/uL (3.93-5.22); White Blood Count 0.95 K/ul (4.8-10.8)
--- NOTE | 2022-01-21 10:53 | Pharmacy Report ---
Pharmacy Glycemic Short Note 2 - Date of Service January 21, 2022 - Glycemic Short BSG Results (Last 24 hours): 01/20/22 01/20/22 01/20/22 11:29 16:29 20:12 Glucose POC Glucose 259 H 229 H 116 H 01/21/22 01/21/22 07:46 07:50 Glucose 72 POC Glucose 78 OUTPATIENT ANTIDIABETIC REGIMEN: * NPH 60 units SC AM + 35 units SC PM * Chronic Prednisone 5 mg PO daily * HbA1c = 7.6% (01/18/22) ASSESSMENT: 01/21: * AM fasting BSG with notable trend down, both as compared to other AM fasting BSG's, and compared to PM BSG yesterday. Furthermore, patient consumed non- diet gingerale overnight, which was not covered with insulin. Will therefore decrease NPH with dinner. * Post-prandial BSG's notably elevated at lunch and dinner. Will tighten CF and CR at breakfast and lunch. 01/20: * Patient recieved a total of 87 units of insulin yesterday - 45 units basal + 42 units bolus. BSGs were elevated: [phone] mg/dL. * Fasting BSG improved to 155 mg/dL this AM. Will increase NPH in the morning only to provide 50 units of basal today. * Remains on daily prednisone. Given lunchtime hyperglycemia, will tighten Novolog with breakfast only today. 01/19: * Carmen received a total of 62 units of insulin yesterday (40 units basal + 22 units bolus). BSGs were acceptable: [phone] mg/dL. * Fasting BSG this AM was elevated at 191 mg/dL. AM NPH was already given so will increase PM NPH tonight. Targeting a daily basal goal of 50 units. * Tightened carb ratio with lunch since AM Novolog had already been given. Patient has a tendency to have high BSGs at lunch followed by a steady decrease throughout the day. If this trend continues on tightened carb ratio, then will loosen tomorrow morning. 01/18: * 81 yo F admitted yesterday secondary to generalized weakness. Patient is a type 2 diabetic on insulin at home. Most recent A1c is at goal for this patient. Ordered and tolerating a type 2 diabetic diet. Continues on home prednisone dose. * BSGs were high upon admission yesterday: [phone] mg/dL. Received 20 units NPH as well as 8 and 5 units IV insulin boluses. Also received relatively large doses of Novolog around bedtime and midnight. This likely led to stacking which caused patient to have a hypoglycemic event around 0400 where the patient was shaky. This required treatment with a half amp of D50 as well as orange juice and patient's BSG improved to 137 mg/dL. * Fasting BSG controlled at 127 mg/dL this AM. Will start NPH dosing based on previous admission data. Novolog will be ordered ACHS and based on previous admission data. Targeting a goal range of 110-140 mg/dL. PLAN FOR INPATIENT GLYCEMIC CONTROL: * Basal insulin * NPH 30 units SC daily with breakfast * NPH 12 units SC daily with dinner * Bolus insulin * NovoLog per scale ACHS or Q6hrs while NPO * Goal Range: Low 110 mg/dL - High 140 mg/dL * Breakfast, lunch - Correction Factor: 15 mg/dL/unit ; Nutritional / Prandial insulin per carb ratio of 1 unit per 5 grams CHO consumed * Dinner, Bedtime - Correction Factor: 20 mg/dL/unit ; Nutritional / Prandial insulin per carb ratio of 1 unit per 6 grams CHO consumed
--- NOTE | 2022-01-21 11:39 | Hospitalist Progress Note ---
Date of Service January 21, 2022 Assessment & Plan (1) Generalized weakness: (2) Symptomatic anemia: (3) MDS (myelodysplastic syndrome): (4) Pancytopenia: (5) Hyponatremia: (6) Insulin dependent diabetes mellitus: (7) A-fib: (8) CKD (chronic kidney disease), stage III: Plan 81 yr old F who has a significant PMH of T2DM, Afib off anticoagulation, MDS and chronic pancytopenia, HTN, HLD, gout, inflammatory polyarthritis, hx of breast and uterine ca, CKD 3, hx of covid who presents [facility] due [facility] recent [facility], worsened serum sodium and generalized weakness. [facility] receiving 2U prbc transfusion in setting of MDS. Generalized weakness Symptomatic anemia MDS with pancytopenia Got 2 unit PRBC at [facility] on the day of presentation Hb 7.1 today, Platelet is 9K Type and screen. 1 platelet transfusion ordered. Consent obtained Monitor and transfuse PRN to keep Hb>7 and Plt >10K Chronic Hyponatremia Na 129 today Hyponatremia in the setting of chronic HFpEF Nephrology recs noted Continue fluid restriction and monitor Continue bumex increased to 1.5mg bid per Nephro Mild hyperkalemia K was 5.4 on admission Aldactone on hold K is 3.6 today IDDM2 with hyperglycemia Last a1c 7.2 10/16/21 Pt missed insulin on day of admission NPH, novolog per protocol Glycemic pharm CKD -3 Cr at baseline Avoid nephrotoxins. Monitor Chronic HFpEF Had got 2 PRBC on day of presentation Continue bumex as above Fluid restriction Recent Fall Bruising to lower ext PT/OT eval- rehab recommended once medically stable Chronic Afib Continue metoprolol, rate controlled Not on OAC in setting of MDS Inflammatory Polyarthritis Continue steroid DVT PPx: none in setting of MDS, encourage ambulation when able Diet: Carb consistent, Low K, Low Na Full Code PCP: Byron Dispo: med tele Admission and Anticipated Discharge Date Admission Date: January 17, 2022 Subjective Patient seen and examined Reports weakness is improving today Denied any dizziness Denied cough, chest pain, SOB, palpitaion Denied nausea, abd pain, vomiting, diarrhea. Reports constipation is resolved. Had a large BM today Denied freq, urgency, dysuria Physical Exam Constitutional: + well hydrated and + obese; no acute distress Eyes: PERRL, conjunctivae normal, anicteric sclerae ENMT: external ear and nose normal, oropharynx normal Respiratory: normal respiratory effort; no respiratory distress Cardiovascular: Rate/Rhythm: + tachycardic and + irregularly irregular S1 S2 Gastrointestinal (Abdomen): normal bowel sounds, soft, nontender, no hepatosplenomegaly Musculoskeletal: No pedal edema Neurologic: PERRL, EOMI, accommodation nl, no face palsy, no dysarthria Psychiatric: A+Ox3, euthymic affect Results & Data Results & Data ([facility]) Vital Signs (Past 12 Hours) Vital Signs Temp Pulse Pulse Resp BP BP Pulse Ox 01/21/22 11:31 36.8 C 120 H 18 90/54 L 94 01/21/22 09:00 01/21/22 07:12 112 H 01/21/22 06:30 36.4 C L 126 H 20 116/71 95 01/21/22 03:55 36.6 C 116 H 20 106/67 98 O2 Del Method 01/21/22 11:31 Room Air 01/21/22 09:00 Room Air 01/21/22 07:12 01/21/22 06:30 Room Air 01/21/22 03:55 Room Air Laboratory Results Abnormal lab results 01/20/22 01/20/22 01/21/22 Range/Units 16:29 20:12 07:46 WBC 0.95 L* (4.8-10.8) K/ul RBC 2.45 L (3.93-5.22) M/uL Hgb 7.1 L (12.0-16.0) g/dl Hct 21.0 L (34.1-44.9) % Plt Count 9 L* (130-400) K/uL Sodium (136-145) mmol/L Chloride (98-107) mmol/L BUN (6-23) mg/dl Creatinine (0.6-1.2) mg/dl BUN/Creatinine Ratio (10-20) POC Glucose 229 H 116 H (70-99) mg/dl Calcium (8.5-10.1) mg/dl 01/21/22 01/21/22 Range/Units 07:46 11:45 WBC (4.8-10.8) K/ul RBC (3.93-5.22) M/uL Hgb (12.0-16.0) g/dl Hct (34.1-44.9) % Plt Count (130-400) K/uL Sodium 129 L (136-145) mmol/L Chloride 95 L (98-107) mmol/L BUN 66 H (6-23) mg/dl Creatinine 1.46 H (0.6-1.2) mg/dl BUN/Creatinine Ratio 45.2 H (10-20) POC Glucose 196 H (70-99) mg/dl Calcium 7.8 L (8.5-10.1) mg/dl
[2022-01-21] MEDS: UREA (UREA-NA) 15 GM PACK PO SCH (20:41)
[2022-01-22] MEDS: ACETAMINOPHEN 325 MG TAB PO PRN ×3 (07:32→20:36)
[2022-01-22] MEDS: DOCUSATE SODIUM 100 MG CAP PO SCH ×2 (07:33→20:30)
[2022-01-22] MEDS: METOPROLOL SUCC 50MG EXT REL TAB PO SCH ×2 (07:33→20:31)
[2022-01-22] MEDS: BUMETANIDE 1 MG TAB PO SCH ×2 (07:33→20:43)
[2022-01-22] MEDS: ATORVASTATIN 20 MG TAB PO SCH (07:34)
[2022-01-22] MEDS: PANTOprazole 40 MG TAB PO SCH (07:34)
[2022-01-22] MEDS: dilTIAZem HCL 240 MG CAPCR PO SCH (07:35)
[2022-01-22] MEDS: allopurinoL 300 MG TAB PO SCH (07:35)
[2022-01-22] MEDS: LORATADINE 10 MG TAB PO SCH (07:35)
[2022-01-22] MEDS: predniSONE 5 MG TAB PO SCH (07:35)
[2022-01-22] MEDS: ESCITALOPRAM OXALATE 10 MG TAB PO SCH (07:35)
[2022-01-22] MEDS: UREA (UREA-NA) 15 GM PACK PO SCH ×2 (07:36→21:16)
[2022-01-22] MEDS: MAGNESIUM OXIDE 400 MG TAB PO SCH (07:36)
[2022-01-22] MEDS: INSULIN HUMAN NPH SC SCH ×2 (08:29→17:28)
[2022-01-22] MEDS: INSULIN ASPART PER UNIT SC SCH ×4 (08:30→20:38)
--- NOTE | 2022-01-22 08:51 | Pharmacy Report ---
Pharmacy Glycemic Short Note 2 - Date of Service January 22, 2022 - Glycemic Short BSG Results (Last 24 hours): 01/21/22 01/21/22 01/21/22 07:46 11:45 16:48 Glucose 72 POC Glucose 196 H 209 H 01/21/22 01/22/22 20:11 07:22 Glucose POC Glucose 169 H 144 H OUTPATIENT ANTIDIABETIC REGIMEN: * NPH 60 units SC AM + 35 units SC PM * Chronic Prednisone 5 mg PO daily * HbA1c = 7.6% (01/18/22) ASSESSMENT: 01/22: * Carmen received 75 units of insulin yesterday - 42 units NPH + 33 units bolus. BSGs were acceptable: 81-751-358-169 mg/dL. * Fasting BSG was 144 mg/dL this AM. No change to NPH today. * May need to tighten Novolog this afternoon as patient's BSGs continue to be significantly elevated at lunch and dinner. 01/21: * AM fasting BSG with notable trend down, both as compared to other AM fasting BSG's, and compared to PM BSG yesterday. Furthermore, patient consumed non- diet gingerale overnight, which was not covered with insulin. Will therefore decrease NPH with dinner. * Post-prandial BSG's notably elevated at lunch and dinner. Will tighten CF and CR at breakfast and lunch. 01/20: * Patient recieved a total of 87 units of insulin yesterday - 45 units basal + 42 units bolus. BSGs were elevated: [phone] mg/dL. * Fasting BSG improved to 155 mg/dL this AM. Will increase NPH in the morning only to provide 50 units of basal today. * Remains on daily prednisone. Given lunchtime hyperglycemia, will tighten Novolog with breakfast only today. PLAN FOR INPATIENT GLYCEMIC CONTROL: * Basal insulin * NPH 30 units SC daily with breakfast * NPH 12 units SC daily with dinner * Bolus insulin * NovoLog per scale ACHS or Q6hrs while NPO * Goal Range: Low 110 mg/dL - High 140 mg/dL * Breakfast, Lunch - Correction Factor: 15 mg/dL/unit ; Nutritional / Prandial insulin per carb ratio of 1 unit per 5 grams CHO consumed * Dinner, Bedtime - Correction Factor: 20 mg/dL/unit ; Nutritional / Pran dial insulin per carb ratio of 1 unit per 6 grams CHO consumed
--- NOTE | 2022-01-22 09:22 | Nephrology Progress Note ---
Date of Service January 22, 2022 Assessment & Plan Admission and Anticipated Discharge Date Admission Date: January 17, 2022 Subjective Assessment & Plan (1) Hyponatremia: Plan: Patient with hyponatremia due to CHF. Baseline sodium in the low 130s. Admission sodium 128 and down to 125 and today up to 130.. Urine osmolality of 379 and urine sodium of 21. Patient admitted to increase water intake at home. We will continue a fluid restriction of 1.2 L daily. She barely eats any protein. told her to try eating more protein. Continue Bumex to 2 mg twice daily. We will continue to monitor sodium daily. No labs today. Please do BMP in AM (2) CKD (chronic kidney disease), stage III: Plan: Patient with CKD stage III due to diabetes and hypertension. Baseline creatinine of 1.5 range. Current creat and BUN is within her baseline. We will continue to monitor daily and avoid nephrotoxins. (3) severe pancytopenia Subjective Seen for CKD and hyponatremia. No shortness of breath. Main complaint is weakness. Sodium stable around 129-130. Review of Systems Review of Systems: All other systems were reviewed and negative except as noted in HPI Physical Exam Physical Exam: General exam: Appears comfortable, no acute distress HEENT: Pupils are equal and reactive to light Neck: No JVD, neck is supple trachea is midline Respiratory system: Clear breath sounds bilaterally. Gastrointestinal: Abdomen is soft, non distended, non tender, bowel sounds are present CVS: Regular rate and rhythm. No murmurs, rubs or gallops Musculoskeletal: No joint or muscle tenderness Extremities: Non tender, no edema, peripheral pulses are present Neuro: Oriented, no tremors, no focal neurological deficits Skin: No rashes Results & Data ([facility]) Vital Signs (Past 12 Hours) Vital Signs Temp Pulse Pulse Resp BP BP Pulse Ox 01/22/22 07:57 110 H 01/22/22 07:41 37.1 C 116 H 16 104/61 90 01/22/22 02:46 37.1 C 102 H 18 99/65 L 97 01/21/22 22:17 90 01/21/22 22:54 37.8 C H 109 H 18 96/57 L 95 O2 Del Method 01/22/22 07:57 01/22/22 07:41 Room Air 01/22/22 02:46 Room Air 01/21/22 22:17 01/21/22 22:54 Room Air
[2022-01-22 12:23] LABS: BUN Creatinine Ratio 57.9 (10-20); Calcium 7.9 mg/dl (8.5-10.1); Creatinine Clr Calc Pharmacy 28.8 ml/min; Est GFR (African American) 37.4 ml/min; Est GFR (Non-African American) 32.3 ml/min; Potassium 3.5 mmol/L (3.5-5.1)
[2022-01-22 12:43] LABS: Hematocrit (blood only) 18.1 % (34.1-44.9); Hemoglobin 6.2 g/dl (12.0-16.0); Mean Corpuscular Hemoglobin 28.8 pg (25.0-34.0); Mean Corpuscular Hgb Conc 34.3 g/dL (32.0-36.0); Mean Corpuscular Volume 84.2 fL (80.0-100.0); Platelet Count 5 K/uL (130-400); RDW Coefficient of Variation 13.8 % (11.5-14.5); RDW Standard Deviation 43.1 fL (36.4-46.3); Red Blood Count 2.15 M/uL (3.93-5.22); White Blood Count 0.99 K/ul (4.8-10.8)
[2022-01-22] MEDS ORDERED: SODIUM CHLORIDE 0.9% 250 ML IV PRN ×2 (12:59→23:44)
--- NOTE | 2022-01-22 16:37 | Hospitalist Progress Note ---
Date of Service January 22, 2022 Assessment & Plan (1) Generalized weakness: (2) Symptomatic anemia: (3) MDS (myelodysplastic syndrome): (4) Pancytopenia: (5) Hyponatremia: (6) Insulin dependent diabetes mellitus: (7) A-fib: (8) CKD (chronic kidney disease), stage III: Plan 81-year-old lady with PMH of chronic diastolic heart failure [EF 60 to 65%, 2021 TTE], pulm hypertension, A. fib not on anticoagulation due to bleeding risk given pancytopenia/MDS endometrial cancer status post surgery, left breast cancer status post surgery/chemo/tamoxifen, MDS undergoing chemo, chronic pancytopenia, DM 2 insulin requiring, CRI baseline creatinine 1.6 was [facility]17 to our ED due to patient feeling weak and a recent fall at home/inability to care for herself.She is being managed for the following: Generalized weakness Symptomatic anemia MDS with pancytopenia Got 2 unit PRBC at [facility] on the day of presentation, Hb 6.7 to 8.1 after that 2 unit tranfusion s/p 1 unit platelets 01/21 Hb 6.2 and Plt 5K today, ordering another unit of prbc and platelets for transfusion. Repeat CBC at 10 pm. Transfuse for Hb <7 or Plt <10K. Monitor and transfuse PRN to keep Hb>7 and Plt >10K Concern of iron overload with elevated ferritin, d/w hem/onc Dr. Barrientos, Pt not started on iron chelation because of side effects. Chronic Hyponatremia Baseline sodium in low 130s, hyponatremia due to CHF. Nephrology on board, fluid restriction 1.2 L/day, increase protein content in diet. BMP in AM. Aldactone on hold. Mild hyperkalemia: resolved. IDDM2 with hyperglycemia Last a1c 7.2 10/16/21 Pt missed insulin on day of admission NPH, novolog per protocol Glycemic pharm CKD -3 Cr at baseline Avoid nephrotoxins. Monitor Chronic HFpEF Had got 2 PRBC on day of presentation Continue bumex as above Fluid restriction Recent Fall Bruising to lower ext PT/OT eval- rehab recommended once medically stable Chronic Afib Continue metoprolol, rate controlled Not on OAC in setting of MDS Inflammatory Polyarthritis Continue steroid DVT PPx: none in setting of MDS, encourage ambulation when able Diet: Carb consistent, Low K, Low Na Full Code PCP: Byron Dispo: med tele Admission and Anticipated Discharge Date Admission Date: January 17, 2022 Subjective Patient seen and examined at bedside for follow-up of generalized weakness, symptomatic anemia, history of MDS with pancytopenia, and chronic hyponatremia. Patient was lying in bed, on room air, NAD, denies any acute events overnight. Patient reports eating okay and moving bowels okay. Patient denies headache/dizziness. Patient reports improvement in her weakness. Patient denies chest pain or sore throat or cough or other review of symptoms. Morning labs were delayed today due to having fewer phlebotomists per RN. Physical Exam Physical Exam: GENERAL: Alert and oriented x3. NAD, on RA. HEENT: No pallor, no icterus. Pupils equal, round and reactive to light. Oral mucosa moist. NECK: No JVD, no neck masses. HEART: S1 and S2 heard. Tachycardia. No murmur, no gallop. RESPIRATORY SYSTEM: Normal AP diameter. No accessory muscle use. No wheezing, no crackles. ABDOMEN: Soft, bowel sounds present, nontender, no distention. CENTRAL NERVOUS SYSTEM: No facial droop. Speech is clear. Obeys simple commands. Moves extremities. EXTREMITIES: trace BLE edema, no erythema seen. Rt knee bruise. b/l leg bruises. Results & Data Results & Data ([facility]) Vital Signs (Past 12 Hours) Vital Signs Temp Pulse Pulse Resp BP BP Pulse Ox 01/22/22 15:05 37.0 C 121 H 16 98/54 L 94 01/22/22 14:50 36.6 C 107 H 18 101/64 91 01/22/22 14:45 94 H 01/22/22 14:34 37.0 C 110 H 18 96/60 L 93 01/22/22 11:51 36.2 C L 121 H 16 86/58 L 93 01/22/22 08:00 01/22/22 07:57 110 H 01/22/22 07:41 37.1 C 116 H 16 104/61 90 O2 Del Method 01/22/22 15:05 01/22/22 14:50 01/22/22 14:45 01/22/22 14:34 01/22/22 11:51 Room Air 01/22/22 08:00 Room Air 01/22/22 07:57 01/22/22 07:41 Room Air
[2022-01-22] MEDS: VITAMIN B COMPLEX TAB PO SCH ×2 (17:27→20:30)
[2022-01-22] MEDS: FIRST - Mouthwash BLM 5 ML UDP PO SCH ×2 (17:27→22:34)
[2022-01-22 22:58] LABS: BUN Creatinine Ratio 74.5 (10-20); Calcium 7.9 mg/dl (8.5-10.1); Creatinine Clr Calc Pharmacy 30.2 ml/min; Est GFR (African American) 39.6 ml/min; Est GFR (Non-African American) 34.2 ml/min; Potassium 3.6 mmol/L (3.5-5.1)
[2022-01-22 23:38] LABS: Hematocrit (blood only) 20.1 % (34.1-44.9); Hemoglobin 6.7 g/dl (12.0-16.0); Mean Corpuscular Hemoglobin 28.8 pg (25.0-34.0); Mean Corpuscular Hgb Conc 33.3 g/dL (32.0-36.0); Mean Corpuscular Volume 86.3 fL (80.0-100.0); Mean Platelet Volume 11.6 fL (9.4-12.3); Platelet Count 8 K/uL (130-400); RDW Coefficient of Variation 13.7 % (11.5-14.5); RDW Standard Deviation 43.2 fL (36.4-46.3); Red Blood Count 2.33 M/uL (3.93-5.22); White Blood Count 1.13 K/ul (4.8-10.8)
[2022-01-22 23:40] LABS: Giant Platelets 3+
[2022-01-22 23:42] LABS: Hypogranular Neutrophils 3+; Immature Granulocytes # (auto) 0.07 K/uL (0.00-0.02); Immature Granulocytes % (auto) 6.2 %; Lymphocytes # (auto) 0.13 K/uL (1.2-3.4); Lymphocytes % (auto) 11.5 %; Monocytes # (auto) 0.11 K/uL (0.24-0.82); Monocytes % (auto) 9.7 %; Neutrophils # (auto) 0.82 K/uL (1.4-6.5); Neutrophils % (auto) 72.6 %
[2022-01-23] MEDS: BUMETANIDE 1 MG TAB PO SCH ×2 (02:48→08:41)
[2022-01-23] MEDS ORDERED: METOPROLOL TARTRATE 1 MG/ML VIAL IV STA (04:57)
[2022-01-23] MEDS ORDERED: POTASSIUM CHLORIDE CRTAB 20 MEQ TABCR PO STA (04:58)
[2022-01-23] MEDS: METOPROLOL SUCC 50MG EXT REL TAB PO SCH ×2 (05:11→20:35)
[2022-01-23] MEDS: FIRST - Mouthwash BLM 119 ML PO SCH ×3 (05:56→21:54)
[2022-01-23] MEDS ORDERED: DIGOXIN 250 MCG in SYRINGE 9 ML IV STA (06:01)
[2022-01-23] MEDS: dilTIAZem HCL 240 MG CAPCR PO SCH (06:18)
[2022-01-23] MEDS: INSULIN ASPART PER UNIT SC SCH ×4 (08:39→20:29)
[2022-01-23] MEDS: INSULIN HUMAN NPH SC SCH (08:40)
[2022-01-23] MEDS: predniSONE 5 MG TAB PO SCH (08:42)
[2022-01-23] MEDS: LORATADINE 10 MG TAB PO SCH (08:42)
[2022-01-23] MEDS: UREA (UREA-NA) 15 GM PACK PO SCH ×2 (08:42→20:36)
[2022-01-23] MEDS: DOCUSATE SODIUM 100 MG CAP PO SCH ×2 (08:42→20:34)
[2022-01-23] MEDS: ATORVASTATIN 20 MG TAB PO SCH (08:43)
[2022-01-23] MEDS: allopurinoL 300 MG TAB PO SCH (08:43)
[2022-01-23] MEDS: VITAMIN B COMPLEX TAB PO SCH ×2 (08:43→20:36)
[2022-01-23] MEDS: MAGNESIUM OXIDE 400 MG TAB PO SCH (08:43)
[2022-01-23] MEDS: ESCITALOPRAM OXALATE 10 MG TAB PO SCH (08:43)
[2022-01-23] MEDS: PANTOprazole 40 MG TAB PO SCH (08:43)
--- NOTE | 2022-01-23 08:44 | Nephrology Progress Note ---
Date of Service January 23, 2022 Assessment & Plan Admission and Anticipated Discharge Date Admission Date: January 17, 2022 Subjective Subjective Assessment & Plan (1) Hyponatremia: Plan: Patient with hyponatremia due to CHF. Baseline sodium in the low 130s. Admission sodium 128 and down to 125 and today up to 130.. Urine osmolality of 379 and urine sodium of 21. Patient admitted to increase water intake at home. We will continue a fluid restriction of 1.2 L daily. She barely eats any protein. told her to try eating more protein. Continue Bumex to 2 mg twice daily. We will continue to monitor sodium daily. Na continues to drop with current management so will change. NS at 80/hr for 1000 ml today. lasix 40 iv bid. Correct K FFR 1200 per day Urea 15 bid (2) CKD (chronic kidney disease), stage III: Plan: Patient with CKD stage III due to diabetes and hypertension. Baseline creatinine of 1.5 range. Current creat and BUN is within her baseline. We will continue to monitor daily and avoid nephrotoxins. (3) severe pancytopenia Subjective Seen for CKD and hyponatremia. No shortness of breath. Main complaint is weakness. Sodium dropping again Review of Systems Review of Systems: All other systems were reviewed and negative except as noted in HPI Physical Exam Physical Exam: General exam: Appears comfortable, no acute distress HEENT: Pupils are equal and reactive to light Neck: No JVD, neck is supple trachea is midline Respiratory system: Clear breath sounds bilaterally. Gastrointestinal: Abdomen is soft, non distended, non tender, bowel sounds are present CVS: Regular rate and rhythm. No murmurs, rubs or gallops Musculoskeletal: No joint or muscle tenderness Extremities: Non tender, no edema, peripheral pulses are present Neuro: Oriented, no tremors, no focal neurological deficits Skin: No rashes Results & Data ([facility]) Vital Signs (Past 12 Hours) Vital Signs Temp Pulse Pulse Resp BP BP Pulse Ox 01/23/22 07:51 37 C 121 H 18 121/64 92 01/23/22 07:10 118 H 01/23/22 06:50 36.8 C 111 H 18 113/69 90 01/23/22 05:50 37.3 C 114 H 18 102/64 90 01/23/22 05:20 36.7 C 114 H 18 106/72 92 01/23/22 05:05 37 C 126 H 18 118/77 93 01/23/22 04:42 37.2 C 98 H 18 123/74 94 01/23/22 03:26 37.4 C 115 H 18 106/64 91 01/23/22 02:45 37.2 C 112 H 20 111/60 92 01/23/22 02:13 91 H 01/23/22 01:45 36.8 C 100 H 18 110/68 95 01/23/22 01:33 01/23/22 01:15 36.9 C 103 H 18 108/69 94 01/23/22 01:00 36.7 C 98 H 18 116/70 94 01/23/22 00:41 36.7 C 98 H 18 116/64 94 01/22/22 23:15 37.3 C 94 H 18 95/62 L 95 O2 Del Method 01/23/22 07:51 01/23/22 07:10 01/23/22 06:50 01/23/22 05:50 01/23/22 05:20 01/23/22 05:05 01/23/22 04:42 01/23/22 03:26 01/23/22 02:45 01/23/22 02:13 01/23/22 01:45 01/23/22 01:33 Room Air 01/23/22 01:15 01/23/22 01:00 01/23/22 00:41 01/22/22 23:15 Room Air
--- NOTE | 2022-01-23 09:30 | Pharmacy Report ---
Pharmacy Glycemic Short Note 2 - Date of Service January 23, 2022 - Glycemic Short BSG Results (Last 24 hours): 01/22/22 01/22/22 01/22/22 11:19 11:29 16:45 Glucose 204 H POC Glucose 228 H 159 H 01/22/22 01/22/22 01/23/22 20:09 22:27 07:51 Glucose 160 H POC Glucose 188 H 209 H OUTPATIENT ANTIDIABETIC REGIMEN: * NPH 60 units SC AM + 35 units SC PM * Chronic Prednisone 5 mg PO daily * HbA1c = 7.6% (01/18/22) ASSESSMENT: 01/23: * Received a total of 80 units of insulin yesterday - 42 units basal + 38 units bolus. BSGs were acceptable: [phone] mg/dL. * Fasting BSG elevated at 209 mg/dL this AM. Ensured patient did not eat prior to checking. Unsure of reason for sharp increase. * Will increase PM NPH dose by 25% today. * Improvement seen in lunch and dinner BSGs with tighter control. No change to Novolog. 01/22: * Carmen received 75 units of insulin yesterday - 42 units NPH + 33 units bolus. BSGs were acceptable: [phone] mg/dL. * Fasting BSG was 144 mg/dL this AM. No change to NPH today. * May need to tighten Novolog this afternoon as patient's BSGs continue to be significantly elevated at lunch and dinner. 01/21: * AM fasting BSG with notable trend down, both as compared to other AM fasting BSG's, and compared to PM BSG yesterday. Furthermore, patient consumed non- diet gingerale overnight, which was not covered with insulin. Will therefore decrease NPH with dinner. * Post-prandial BSG's notably elevated at lunch and dinner. Will tighten CF and CR at breakfast and lunch. 01/20: * Patient recieved a total of 87 units of insulin yesterday - 45 units basal + 42 units bolus. BSGs were elevated: 130-735-264-226 mg/dL. * Fasting BSG improved to 155 mg/dL this AM. Will increase NPH in the morning only to provide 50 units of basal today. * Remains on daily prednisone. Given lunchtime hyperglycemia, will tighten Novolog with breakfast only today. PLAN FOR INPATIENT GLYCEMIC CONTROL: * Basal insulin * NPH 30 units SC daily with breakfast * NPH 15 units SC daily with dinner * Bolus insulin * NovoLog per scale ACHS or Q6hrs while NPO * Goal Range: Low 110 mg/dL - High 140 mg/dL * Breakfast, Lunch - Correction Factor: 15 mg/dL/unit ; Nutritional / Prandial insulin per carb ratio of 1 unit per 4 grams CHO consumed * Dinner, Bedtime - Correction Factor: 20 mg/dL/unit ; Nutritional / Prandial insulin per carb ratio of 1 unit per 6 grams CHO consumed
[2022-01-23] MEDS: SODIUM CHLORIDE 0.9% 1000ML 1,000 ML IV SCH ×2 (09:52→22:42)
[2022-01-23 10:02] LABS: BUN Creatinine Ratio 69.5 (10-20); Calcium 8.2 mg/dl (8.5-10.1); Creatinine Clr Calc Pharmacy 32.6 ml/min; Est GFR (Non-African American) 35.3 ml/min; Phosphorus 3.5 mg/dl (2.5-4.9); Potassium 3.8 mmol/L (3.5-5.1)
[2022-01-23 10:24] LABS: Hematocrit (blood only) 24.3 % (34.1-44.9); Hemoglobin 8.3 g/dl (12.0-16.0); Mean Corpuscular Hemoglobin 28.8 pg (25.0-34.0); Mean Corpuscular Hgb Conc 34.2 g/dL (32.0-36.0); Mean Corpuscular Volume 84.4 fL (80.0-100.0); Mean Platelet Volume 9.1 fL (9.4-12.3); Platelet Count 5 K/uL (130-400); RDW Coefficient of Variation 13.9 % (11.5-14.5); RDW Standard Deviation 42.9 fL (36.4-46.3); Red Blood Count 2.88 M/uL (3.93-5.22); White Blood Count 1.32 K/ul (4.8-10.8)
[2022-01-23] MEDS: FUROSEMIDE 40 MG/4 ML VIAL IV SCH ×2 (10:55→20:58)
[2022-01-23] MEDS: POTASSIUM CHLORIDE CRTAB 20 MEQ TABCR PO SCH ×2 (10:55→20:58)
[2022-01-23 14:53] LABS: Hematocrit (blood only) 22.2 % (34.1-44.9); Hemoglobin 7.8 g/dl (12.0-16.0); Mean Corpuscular Hemoglobin 29.5 pg (25.0-34.0); Mean Corpuscular Hgb Conc 35.1 g/dL (32.0-36.0); Mean Corpuscular Volume 84.1 fL (80.0-100.0); Mean Platelet Volume 14.1 fL (9.4-12.3); Platelet Count 5 K/uL (130-400); RDW Coefficient of Variation 13.7 % (11.5-14.5); RDW Standard Deviation 42.3 fL (36.4-46.3); Red Blood Count 2.64 M/uL (3.93-5.22)
[2022-01-23 14:59] LABS: Platelet Estimate Signific. Decreased (Normal)
[2022-01-23] MEDS ORDERED: INSULIN HUMAN NPH SC SCH (16:30)
--- NOTE | 2022-01-23 18:13 | Hospitalist Progress Note ---
Date of Service January 23, 2022 Assessment & Plan (1) Generalized weakness: (2) Symptomatic anemia: (3) MDS (myelodysplastic syndrome): (4) Pancytopenia: (5) Hyponatremia: (6) Insulin dependent diabetes mellitus: (7) A-fib: (8) CKD (chronic kidney disease), stage III: Plan 81-year-old lady with PMH of chronic diastolic heart failure [EF 60 to 65%, 2021 TTE], pulm hypertension, A. fib not on anticoagulation due to bleeding risk given pancytopenia/MDS endometrial cancer status post surgery, left breast cancer status post surgery/chemo/tamoxifen, MDS undergoing chemo, chronic pancytopenia, DM 2 insulin requiring, CRI baseline creatinine 1.6 was [facility] to our ED due to patient feeling weak and a recent fall at home/inability to care for herself.She is being managed for the following: Generalized weakness Symptomatic anemia MDS with pancytopenia Got 2 unit PRBC at [facility] on the day of presentation, Hb 6.7 to 8.1 after that 2 unit tranfusion s/p 4 unit platelets and 2 unit prbc since admission; Hb and platelets dropping fast, hence reached out to Dr. Barrientos for further recs, hematology consult placed, await recs. Repeat CBC at 10 pm. Transfuse for Hb <7 or Plt <10K. Monitor and transfuse PRN to keep Hb>7 and Plt >10K Chronic Hyponatremia Baseline sodium in low 130s, hyponatremia due to CHF. Nephrology on board, fluid restriction 1.2 L/day, increase protein content in diet. Low sodium diet. BMP in AM. Aldactone on hold. Mild hyperkalemia: resolved. IDDM2 with hyperglycemia Last a1c 7.2 10/16/21 Pt missed insulin on day of admission NPH, novolog per protocol Glycemic pharm CKD -3 Cr at baseline Avoid nephrotoxins. Monitor Chronic HFpEF Had got 2 PRBC on day of presentation Continue bumex as above Fluid restriction Recent Fall Bruising to lower ext PT/OT eval- rehab recommended once medically stable Chronic Afib Continue metoprolol, rate controlled Not on OAC in setting of MDS Inflammatory Polyarthritis Continue steroid DVT PPx: none in setting of MDS, encourage ambulation when able Diet: Carb consistent, Low K, Low Na Full Code PCP: Byron Dispo: med tele, pending hematology eval. Admission and Anticipated Discharge Date Admission Date: January 17, 2022 Subjective Patient seen and examined at bedside for follow-up of generalized weakness, symptomatic anemia, history of MDS with pancytopenia, and chronic hyponatremia. Patient was sitting up in bed, on room air, NAD, denies any acute events overnight. Patient reports eating okay and moving bowels okay. Pt reports feeling tired. Patient denies headache/dizziness. Patient reports improvement in her weakness. Patient denies chest pain or sore throat or cough or other rev iew of symptoms. Physical Exam Physical Exam: GENERAL: Alert and oriented x3. NAD, on RA. HEENT: No pallor, no icterus. Pupils equal, round and reactive to light. Oral mucosa moist. NECK: No JVD, no neck masses. HEART: S1 and S2 heard. Tachycardia. No murmur, no gallop. RESPIRATORY SYSTEM: Normal AP diameter. No accessory muscle use. No wheezing, no crackles. ABDOMEN: Soft, bowel sounds present, nontender, no distention. CENTRAL NERVOUS SYSTEM: No facial droop. Speech is clear. Obeys simple commands. Moves extremities. EXTREMITIES: trace BLE edema, no erythema seen. Rt knee bruise. b/l leg bruises. Results & Data Results & Data ([facility]) Vital Signs (Past 12 Hours) Vital Signs Temp Pulse Pulse Resp BP BP Pulse Ox 01/23/22 15:53 36.7 C 104 H 16 130/67 91 01/23/22 15:13 118 H 01/23/22 13:37 36.5 C 101 H 18 100/57 L 96 01/23/22 12:41 36.6 C 101 H 18 107/65 96 01/23/22 12:11 36.5 C 95 H 18 102/68 95 01/23/22 11:56 36.8 C 127 H 18 111/55 L 95 01/23/22 11:40 36.7 C 121 H 18 114/69 01/23/22 08:00 01/23/22 07:51 37 C 121 H 18 121/64 92 01/23/22 07:10 118 H 01/23/22 06:50 36.8 C 111 H 18 113/69 90 O2 Del Method 01/23/22 15:53 Room Air 01/23/22 15:13 01/23/22 13:37 01/23/22 12:41 01/23/22 12:11 01/23/22 11:56 01/23/22 11:40 01/23/22 08:00 Room Air 01/23/22 07:51 01/23/22 07:10 01/23/22 06:50
[2022-01-23] MEDS: MELATONIN 3 MG TAB PO PRN (20:37)
[2022-01-23] MEDS: ACETAMINOPHEN 325 MG TAB PO PRN (20:37)
[2022-01-23 22:41] LABS: Hematocrit (blood only) 21.1 % (34.1-44.9); Hemoglobin 7.2 g/dl (12.0-16.0); Mean Corpuscular Hemoglobin 28.9 pg (25.0-34.0); Mean Corpuscular Hgb Conc 34.1 g/dL (32.0-36.0); Mean Corpuscular Volume 84.7 fL (80.0-100.0); Mean Platelet Volume 10.6 fL (9.4-12.3); Platelet Count 6 K/uL (130-400); RDW Coefficient of Variation 13.8 % (11.5-14.5); RDW Standard Deviation 42.8 fL (36.4-46.3); Red Blood Count 2.49 M/uL (3.93-5.22); White Blood Count 1.38 K/ul (4.8-10.8)
[2022-01-24] MEDS: FIRST - Mouthwash BLM 119 ML PO SCH (05:09)
[2022-01-24] MEDS: DOCUSATE SODIUM 100 MG CAP PO SCH (09:03)
[2022-01-24] MEDS: FUROSEMIDE 40 MG/4 ML VIAL IV SCH (09:06)
[2022-01-24] MEDS: INSULIN ASPART PER UNIT SC SCH (09:06)
[2022-01-24] MEDS: INSULIN HUMAN NPH SC SCH (09:06)
[2022-01-24] MEDS: METOPROLOL SUCC 50MG EXT REL TAB PO SCH (09:07)
[2022-01-24] MEDS: UREA (UREA-NA) 15 GM PACK PO SCH (09:07)
[2022-01-24] MEDS: LORATADINE 10 MG TAB PO SCH (09:08)
[2022-01-24] MEDS: dilTIAZem HCL 240 MG CAPCR PO SCH (09:08)
[2022-01-24] MEDS: POTASSIUM CHLORIDE CRTAB 20 MEQ TABCR PO SCH (09:08)
[2022-01-24] MEDS: PANTOprazole 40 MG TAB PO SCH (09:08)
[2022-01-24] MEDS: ESCITALOPRAM OXALATE 10 MG TAB PO SCH (09:09)
[2022-01-24] MEDS: VITAMIN B COMPLEX TAB PO SCH (09:09)
[2022-01-24] MEDS: allopurinoL 300 MG TAB PO SCH (09:09)
[2022-01-24] MEDS: MAGNESIUM OXIDE 400 MG TAB PO SCH (09:09)
[2022-01-24] MEDS: predniSONE 5 MG TAB PO SCH (09:09)
[2022-01-24] MEDS: ATORVASTATIN 20 MG TAB PO SCH (09:09)
--- NOTE | 2022-01-24 10:18 | Pharmacy Report ---
Pharmacy Glycemic Short Note 2 - Date of Service January 24, 2022 - Glycemic Short BSG Results (Last 24 hours): 01/23/22 01/23/22 01/23/22 12:01 16:54 20:11 POC Glucose 237 H 154 H 219 H 01/24/22 07:35 POC Glucose 178 H OUTPATIENT ANTIDIABETIC REGIMEN: * NPH 60 units SC AM + 35 units SC PM * Chronic Prednisone 5 mg PO daily * HbA1c = 7.6% (01/18/22) ASSESSMENT: 01/24: * Patient received total of 95 units of insulin yesterday, of which 45 units were basal insulin * Fasting BSG improving with increase in NPH evening dose - will continue same for today 01/23: * Received a total of 80 units of insulin yesterday - 42 units basal + 38 units bolus. BSGs were acceptable: 160-248-460-188 mg/dL. * Fasting BSG elevated at 209 mg/dL this AM. Ensured patient did not eat prior to checking. Unsure of reason for sharp increase. * Will increase PM NPH dose by 25% today. * Improvement seen in lunch and dinner BSGs with tighter control. No change to Novolog. 01/22: * Carmen received 75 units of insulin yesterday - 42 units NPH + 33 units bolus. BSGs were acceptable: 36-983-329-169 mg/dL. * Fasting BSG was 144 mg/dL this AM. No change to NPH today. * May need to tighten Novolog this afternoon as patient's BSGs continue to be significantly elevated at lunch and dinner. 01/21: * AM fasting BSG with notable trend down, both as compared to other AM fasting BSG's, and compared to PM BSG yesterday. Furthermore, patient consumed non- diet gingerale overnight, which was not covered with insulin. Will therefore decrease NPH with dinner. * Post-prandial BSG's notably elevated at lunch and dinner. Will tighten CF and CR at breakfast and lunch. 01/20: * Patient recieved a total of 87 units of insulin yesterday - 45 units basal + 42 units bolus. BSGs were elevated: [phone] mg/dL. * Fasting BSG improved to 155 mg/dL this AM. Will increase NPH in the morning only to provide 50 units of basal today. * Remains on daily prednisone. Given lunchtime hyperglycemia, will tighten Artur log with breakfast only today. PLAN FOR INPATIENT GLYCEMIC CONTROL: * Basal insulin * NPH 30 units SC daily with breakfast * NPH 15 units SC daily with dinner * Bolus insulin * NovoLog per scale ACHS or Q6hrs while NPO * Goal Range: Low 110 mg/dL - High 140 mg/dL * Breakfast, Lunch - Correction Factor: 15 mg/dL/unit ; Nutritional / Prandial insulin per carb ratio of 1 unit per 4 grams CHO consumed * Dinner, Bedtime - Correction Factor: 20 mg/dL/unit ; Nutritional / Prandial insulin per carb ratio of 1 unit per 6 grams CHO consumed
[2022-01-24 10:29] LABS: BUN Creatinine Ratio 69.8 (10-20); Calcium 8.3 mg/dl (8.5-10.1); Creatinine Clr Calc Pharmacy 36.5 ml/min; Est GFR (African American) 46.9 ml/min; Est GFR (Non-African American) 40.5 ml/min; Magnesium 1.9 mg/dl (1.7-2.4); Phosphorus 3.6 mg/dl (2.5-4.9); Potassium 4.1 mmol/L (3.5-5.1)
[2022-01-24 10:40] LABS: Hematocrit (blood only) 30.2 % (34.1-44.9); Hemoglobin 10.3 g/dl (12.0-16.0); Mean Corpuscular Hemoglobin 28.9 pg (25.0-34.0); Mean Corpuscular Hgb Conc 34.1 g/dL (32.0-36.0); Mean Corpuscular Volume 84.6 fL (80.0-100.0); Platelet Count 2 K/uL (130-400); RDW Coefficient of Variation 13.8 % (11.5-14.5); RDW Standard Deviation 43.2 fL (36.4-46.3); Red Blood Count 3.57 M/uL (3.93-5.22); White Blood Count 1.11 K/ul (4.8-10.8)
[2022-01-24] MEDS ORDERED: LORazepam 0.5 MG TAB PO PRN (11:14)
[2022-01-24] MEDS ORDERED: ONDANSETRON INJ 2 MG/ML 2 ML VIAL IV PRN (11:14)
[2022-01-24] MEDS ORDERED: chlorproMAZINE HCL 25 MG TAB PO PRN (11:14)
[2022-01-24] MEDS ORDERED: haloperidoL 1 MG TAB PO PRN (11:14)
[2022-01-24] MEDS ORDERED: MoRPHine SULFATE 5 MG/0.25 ML UDP PO PRN (11:14)
[2022-01-24] MEDS ORDERED: ONDANSETRON 4 MG OD TAB SL PRN (11:14)
[2022-01-24] MEDS ORDERED: STAT IV Infusion **Titration per Protocol PRN (11:14)
[2022-01-24] MEDS ORDERED: LORazepam 0.5 MG in SYRINGE 0.25 ML IV PRN (11:14)
[2022-01-24] MEDS ORDERED: GLYCOPYRROLATE 0.2 MG/ML VIAL IV PRN (11:14)
[2022-01-24] MEDS ORDERED: MoRPHine SULF/NSS 100 MG/100 ML BAG IV PRN (11:15)
[2022-01-24] MEDS: SODIUM CHLORIDE 0.9% 1000ML 1,000 ML IV SCH (11:32)
--- NOTE | 2022-01-24 17:00 | Hospitalist Progress Note ---
Date of Service January 24, 2022 Assessment & Plan (1) Generalized weakness: (2) Symptomatic anemia: (3) MDS (myelodysplastic syndrome): (4) Pancytopenia: (5) Hyponatremia: (6) Insulin dependent diabetes mellitus: (7) A-fib: (8) CKD (chronic kidney disease), stage III: Plan 81-year-old lady with PMH of chronic diastolic heart failure [EF 60 to 65%, 2021 TTE], pulm hypertension, A. fib not on anticoagulation due to bleeding risk given pancytopenia/MDS endometrial cancer status post surgery, left breast cancer status post surgery/chemo/tamoxifen, MDS undergoing chemo, chronic pancytopenia, DM 2 insulin requiring, CRI baseline creatinine 1.6 was [facility] to our ED due to patient feeling weak and a recent fall at home/inability to care for herself.She was initially managed for the following: Generalized weakness Symptomatic anemia Thrombocytopenia MDS with pancytopenia Chronic Hyponatremia IDDM2 with hyperglycemia CKD -3 Chronic HFpEF Recent Fall Chronic Afib Inflammatory Polyarthritis Patient transition to comfort care only status 01/24/2022 morning after discussion with the patient and the family. All active meds are discontinued, comfort care meds are in place, regular diet, no lab draws, vitals daily. Admission and Anticipated Discharge Date Admission Date: January 17, 2022 Subjective Patient seen and examined at bedside for follow-up of generalized weakness, symptomatic anemia, history of MDS with pancytopenia, chronic hyponatremia and now comfort care only status since 01/24/22. Patient was sitting up in bed, on room air, NAD, denies any acute events overnight. Patient reports decreased appetite and moving bowels okay. Pt r eports feeling tired. Patient denies headache/dizziness. Patient reports improvement in her weakness. Patient denies chest pain or sore throat or cough or other review of symptoms. Pt reports having d/w oncology yesterday evening and wanted to go with hospice care after the discussion. Today morning I updated patient about her current labs and explained what hospice means, patient expressed desire to not continue any form of active treatment w/ no further blood products transfusion and hence decision was reached to transition her to comfort care for now while CM is assisting with hospice set up. Same was communicated to the patient's dtr Boris by me over the phone by the bedside via patient's own phone. Physical Exam Physical Exam: GENERAL: Alert and oriented x3. NAD, on RA. HEENT: No pallor, no icterus. Pupils equal, round and reactive to light. Oral mucosa moist. NECK: No JVD, no neck masses. HEART: S1 and S2 heard. Tachycardia. No murmur, no gallop. RESPIRATORY SYSTEM: Normal AP diameter. No accessory muscle use. No wheezing, no crackles. ABDOMEN: Soft, bowel sounds present, nontender, no distention. CENTRAL NERVOUS SYSTEM: No facial droop. Speech is clear. Obeys simple commands. Moves extremities. EXTREMITIES: trace BLE edema, no erythema seen. Rt knee bruise. b/l leg bruises. Results & Data Results & Data ([facility]) Vital Signs (Past 12 Hours) Vital Signs Temp Pulse Pulse Resp BP Pulse Ox O2 Del Method 01/24/22 07:54 36.6 C 84 16 118/77 91 Room Air 01/24/22 07:15 109 H
--- NOTE | 2022-01-24 17:07 | Consultation Report ---
DATE OF SERVICE: 01/23/2022. REASON FOR CONSULTATION: Pancytopenia. HISTORY OF PRESENT ILLNESS: The patient is a 81-year-old female known to me at [facility], who has a history significant for myelodysplastic syndrome with excess blasts for which she was initially started on hypomethylating treatment with azacitidine in 10/2021. She also has a medical history of endometrial cancer for which she is status post BENSON/BSO in 2007 and history of left breast cancer, status post left breast mastectomy in 2011. The patient has recently been admitted multiple times to [facility] [address] with refractory pancytopenia for which she has required multiple PRBC and platelet transfusions. Due to recurrent admissions, she has not been able to receive treatments as scheduled. During my evaluation of her today, she complains of fatigue, which she states is a little bit better. . PAST MEDICAL HISTORY: 1. Chronic diastolic heart failure. 2. Pulmonary hypertension. 3. Atrial fibrillation. 4. Hypertension. 5. Hyperlipidemia. 6. Endometrial cancer. 7. Left breast cancer. 8. MDS-EB1. PAST SURGICAL HISTORY: 1. Carpal tunnel surgery. 2. Cholecystectomy. 3. Cataract surgery. 4. BENSON/BSO. 5. Breast surgery. FAMILY HISTORY: Unremarkable. SOCIAL HISTORY: Denies smoking, alcohol, or illicit drug use. HOME MEDICATIONS: 1. Allopurinol. 2. Bumetanide. 3. Diltiazem. 4. Escitalopram. 5. Loratadine. 6. Atorvastatin. 7. Pantoprazole. 8. Spironolactone. 9. Metoprolol. ALLERGIES: 1. HYDROCODONE. 2. FENTANYL. 3. PROTAMINE. 4. SODIUM PHOSPHATE. 5. ZINC. 6. HYDROXYCHLOROQUINE. REVIEW OF SYSTEMS: As noted above. PHYSICAL EXAMINATION: Unremarkable. LABORATORY STUDIES: CBC on 01/23/2022 significant for white cell count of 1.38, hemoglobin 7.2, hematocrit 21.1, platelet count of 6000. ASSESSMENT AND PLAN: 1. Myelodysplastic syndrome - EB1. 2. Pancytopenia, requiring multiple PRBC and platelet transfusions. 3. History of breast cancer. 4. History of endometrial cancer. Pleasant unfortunate female being followed at [facility] for myelodysplastic syndrome with excess blasts for which she was started on hypomethylating 5-azacitidine in 10/2021. Patient has had multiple hospitalizations very recently due to refractory anemia and thrombocytopenia. This is most likely due to underlying disease. Ideally, she would require repeat bone marrow biopsy to rule out progression to acute myeloid leukemia. However, given refractory cytopenias and her advanced age, she would not be a candidate at this time for stem cell transplant. She has also not responded to azacitidine. I had an extensive discussion with the patient, her boyfriend and her boyfriend's son discussing overall poor prognosis of disease. I explained to her that I would recommend she consider hospice/supportive care. The patient indicated that she would like to discuss with her daughters regarding this. If she decides to go ahead with hospice care, would not recommend any more transfusions. Thank you for this consult. Hematology will continue following the patient while in the hospital and see how upon discharge if she decides not to go into hospice. Please feel free to call if you have any further questions. Job ID: [id number] [email or web address]
[2022-01-24] MEDS: ACETAMINOPHEN 325 MG TAB PO PRN (18:04)
[2022-01-24] MEDS: MoRPHine SULFATE 2 MG/ML CARP IV PRN (23:33)
[2022-01-25] MEDS: MoRPHine SULFATE 2 MG/ML CARP IV PRN (03:30)
[2022-01-25] MEDS: MoRPHine SULFATE 4 MG/ML 1 ML CARP\\VIAL IV PRN ×2 (07:58→20:14)
[2022-01-25] MEDS: ACETAMINOPHEN 325 MG TAB PO PRN (13:27)
--- NOTE | 2022-01-25 16:52 | Hospitalist Progress Note ---
Date of Service January 25, 2022 Assessment & Plan (1) Generalized weakness: (2) Symptomatic anemia: (3) MDS (myelodysplastic syndrome): (4) Pancytopenia: (5) Hyponatremia: (6) Insulin dependent diabetes mellitus: (7) A-fib: (8) CKD (chronic kidney disease), stage III: Plan 81-year-old lady with PMH of chronic diastolic heart failure [EF 60 to 65%, 2021 TTE], pulm hypertension, A. fib not on anticoagulation due to bleeding risk given pancytopenia/MDS endometrial cancer status post surgery, left breast cancer status post surgery/chemo/tamoxifen, MDS undergoing chemo, chronic pancytopenia, DM 2 insulin requiring, CRI baseline creatinine 1.6 was sent from [facility] 01/17 to our ED due to patient feeling weak and a recent fall at home/inability to care for herself.She was initially managed for the following: Generalized weakness Symptomatic anemia Thrombocytopenia MDS with pancytopenia Chronic Hyponatremia IDDM2 with hyperglycemia CKD -3 Chronic HFpEF Recent Fall Chronic Afib Inflammatory Polyarthritis Patient transitioned to comfort care only status 01/24/2022 morning after discussion with the patient and the family. All active meds are discontinued, comfort care meds are in place, regular diet, no lab draws, vitals daily. Pt appears comfortable and denies pain. Admission and Anticipated Discharge Date Admission Date: January 17, 2022 Subjective Patient seen and examined at bedside for follow-up of generalized weakness, symptomatic anemia, history of MDS with pancytopenia, chronic hyponatremia and now comfort care only status since 01/24/22. Patient was lying in bed, on room air, more lethargic today, denies any acute events overnight. Pt reports being comfortable and in no pain. Physical Exam Physical Exam: GENERAL: lethargic, on 2L NC O2, NAD HEENT: atraumatic NECK: No JVD, no neck masses. HEART: S1 and S2 heard. Tachycardia. RESPIRATORY SYSTEM: No wheezing, no crackles. ABDOMEN: Soft, bowel sounds present, nontender, no distention. CENTRAL NERVOUS SYSTEM: No facial droop.lethargic. EXTREMITIES: 1-2+ BLE edema, no erythema seen. Rt knee bruise. b/l leg bruises. Results & Data Results & Data ([facility]) Vital Signs (Past 12 Hours) Vital Signs O2 Del Method O2 Flow Rate 01/25/22 09:45 Nasal Cannula 2
[2022-01-26] MEDS: MoRPHine SULFATE 4 MG/ML 1 ML CARP\\VIAL IV PRN ×3 (01:49→05:21)
[2022-01-26] MEDS ORDERED: LORazepam 2 MG/1 ML VIAL IV PRN (04:09)
[2022-01-26] MEDS ORDERED: LORazepam 1 MG in SYRINGE 0.5 ML IV PRN (04:14)
--- NOTE | 2022-01-26 15:56 | Hospitalist Progress Note ---
Date of Service January 26, 2022 Assessment & Plan (1) Generalized weakness: (2) Symptomatic anemia: (3) MDS (myelodysplastic syndrome): (4) Pancytopenia: (5) Hyponatremia: (6) Insulin dependent diabetes mellitus: (7) A-fib: (8) CKD (chronic kidney disease), stage III: Plan 81-year-old lady with PMH of chronic diastolic heart failure [EF 60 to 65%, 2021 TTE], pulm hypertension, A. fib not on anticoagulation due to bleeding risk given pancytopenia/MDS endometrial cancer status post surgery, left breast cancer status post surgery/chemo/tamoxifen, MDS undergoing chemo, chronic pancytopenia, DM 2 insulin requiring, CRI baseline creatinine 1.6 was sent from [facility] 01/17 to our ED due to patient feeling weak and a recent fall at home/inability to care for herself.She was initially managed for the following: Generalized weakness Symptomatic anemia Thrombocytopenia MDS with pancytopenia Chronic Hyponatremia IDDM2 with hyperglycemia CKD -3 Chronic HFpEF Recent Fall Chronic Afib Inflammatory Polyarthritis Patient transitioned to comfort care only status 01/24/2022 morning after discussion with the patient and the family. All active meds are discontinued, comfort care meds are in place, regular diet, no lab draws, vitals daily. Pt appears comfortable and denies pain. Admission and Anticipated Discharge Date Admission Date: January 17, 2022 Subjective Patient seen and examined at bedside for follow-up of generalized weakness, symptomatic anemia, history of MDS with pancytopenia, chronic hyponatremia and now comfort care only status since 01/24/22. Patient was lying in bed, on room air, weak and lethargic, denies any acute events overnight. Pt can open eyes but falls back to sleep quickly on calling name. Appears comfortable. Physical Exam Physical Exam: GENERAL: lethargic, on 2L NC O2, NAD HEENT: atraumatic NECK: No JVD, no neck masses. HEART: S1 and S2 heard. Tachycardia. RESPIRATORY SYSTEM: No wheezing, no crackles. ABDOMEN: Soft, bowel sounds present, nontender, no distention. CENTRAL NERVOUS SYSTEM: No facial droop.lethargic. EXTREMITIES:2+ BLE edema, no erythema seen. Rt knee bruise. b/l leg bruises. Results & Data Results & Data ([facility]) Vital Signs (Past 12 Hours) Vital Signs O2 Del Method O2 Flow Rate 01/26/22 08:06 Nasal Cannula 2
--- NOTE | 2022-01-27 07:26 | Discharge Summary ---
Date of Service January 26, 2022 Admission HPI Per Admitting Provider This is a 81 yr old F who has a significant PMH of T2DM, Afib off anticoagulation, MDS and chronic pancytopenia, HTN, HLD, gout, inflammatory polyarthritis, hx of breast and uterine ca, CKD 3, hx of covid who presents to ED 2/2referral by [facility] due to recent fall, worsened serum sodium and generalized weakness. Pt was at [facility] today receiving prbc transfusion in setting of MDS. She complains of being generally weak and dizzy for about a week. She received 2 unit PRBC today. She states her BP was low at [facility]. She states her dizziness and lightheaded is worse in the morning and when she tries to get up and walk at [facility]. When she went to get off the table for CT scan she felt dizzy. She denies f/c/s, chest pain, cough, uri sx, palpitations, hemoptysis, n/v/d, abd pain. She does have constipation and she takes colace for this. She denies dysuria, increased freq or urgency. She does not monitor her BP at home. She denies tobacco use and admits to very rare wine use. Son, Taan, is at bedside. He has a brother and sister and all 3 share POA. Overall appetite has been good. She gets a blood transfusion almost every week. She lives alone and brother lives 35 minutes away. She uses a walker at home. She fell 1.5 weeks ago and lost her balance. She has bruising on her legs but no other falls. She denies hitting her head. She fell into her flower bed. Admission Exam Per Admitting Provider GENERAL: Alert and oriented x3. NAD, on RA. Appears ill, frail and weak. HEENT: No pallor, no icterus. Pupils equal, round and reactive to light. Oral mucosa moist. NECK: No JVD, no neck masses. HEART: S1 and S2 heard. Tachycardia. No murmur, no gallop. RESPIRATORY SYSTEM: Normal AP diameter. No accessory muscle use. No wheezing, no crackles. ABDOMEN: Soft, bowel sounds present, nontender, no distention. CENTRAL NERVOUS SYSTEM: No facial droop. Speech is clear. Obeys simple commands. Moves extremities. EXTREMITIES: 1+ BLE edema, no erythema seen. Rt knee bruise. b/l leg bruises. Principal Diagnosis Generalized weakness Acute on chronic anemia Myelodysplastic syndrome with pancytopenia Discharge Exam Refer to Jan 26 progress note. Discharge Data Allergies Allergy/AdvReac Type Severity Reaction Status Date / Time hydrocodone Allergy Mild UNKNOWN Verified 01/17/22 08:45 "HAPPENED LONG TIME AGO" phenol Allergy Mild LOCALIZED Verified 01/17/22 08:45 RASH AT INJECTION SITE protamine Allergy Mild LOCALIZED Verified 01/17/22 08:45 RASH AT INJECTION SITE sodium phosphate Allergy Mild LOCALIZED Verified 01/17/22 08:45 RASH AT INJECTION SITE zinc Allergy Mild LOCALIZED Verified 01/17/22 08:45 RASH AT INJECTION SITE hydroxychloroquine AdvReac Mild "BURPED Verified 01/17/22 08:45 FOR DAYS AND TORE MY STOMACH UP" Consultations 01/17/22 16:19 ED Decision to Admit Stat 01/18/22 09:04 Consult Nephrology Routine 01/24/22 10:15 Consult Hematology Routine 01/24/22 11:14 Consult Palliative Care Routine Ordered Studies 01/17/22 14:47 CT head/brain wo con Stat Hospital Course (1) Generalized weakness: Plan 81-year-old lady with PMH of chronic diastolic heart failure [EF 60 to 65%, 2021 TTE], pulm hypertension, A. fib not on anticoagulation due to bleeding risk given pancytopenia/MDS endometrial cancer status post surgery, left breast cancer status post surgery/chemo/tamoxifen, MDS undergoing chemo, chronic pancytopenia, DM 2 insulin requiring, CRI baseline creatinine 1.6 was sent from [facility] 01/17 to our ED due to patient feeling weak and a recent fall at home/inability to care for herself.She was initially managed for the following: Generalized weakness Symptomatic anemia Thrombocytopenia MDS with pancytopenia Chronic Hyponatremia IDDM2 with hyperglycemia CKD -3 Chronic HFpEF Recent Fall Chronic Afib Inflammatory Polyarthritis Patient transitioned to comfort care only status 01/24/2022 morning after discussion with the patient and the family. Patient on Jan 26, 2022 at 1745 hours. Cause of : Acute hypoxemic respiratory failure secondary to acute on chronic anemia secondary to myelodysplastic syndrome with pancytopenia. Total Time Total Time Spent Total Time Spent (In Minutes): 35 Discharge Plan Discharge Items Patient Disposition: Other Date/Time: 01/26/22 17:50
== END 2022-01-26 21:17 | disposition expired | DRG 812 ==
LOC: ED 14:07 → SUATTDRO 16:30 → 2W 16:30